=== PATIENT | female | born 1935 | race Caucasian/White ===

== ENCOUNTER 2020-08-19 09:09 | Outpatient (REF) | payer MEDICARE, OTHER, SELFPAY ==
--- NOTE | 2020-08-19 11:15 | MHC.AU.P13 ---
Adult Audiological Evaluation Date of Visit: 08/19/20 Reason for Appointment: History of hearing loss. Patient arrives to determine if there has been a change in hearing. Previous Hearing Test Results: At this clinic on 05/12/2019- Mild sloping to moderately-severe sensorineural hearing loss bilaterally. Low frequencies slightly worse in the left ear. Ear History: Recent Ear Drainage: None Reported Recent Ear Pain: None Reported Recent Ear Infections: None Reported Previous Ear Surgery: None Reported Medical History: Medical History: High Blood Pressure Hearing Instrument History- Right Ear: Corporate Wellness Coordinator: Oticon Model: Agil mini BTE Serial Number: [id number] Battery Size: 312 Repair Warranty: 08/30/2015 Loss and Damage Warranty: 08/30/2015 Dispensed By: [facility] Date of Fittin08/11/2013 Hearing Instrument History- Left Ear: Corporate Wellness Coordinator: O[employer]on Model: Agil mini BTE Serial Number: [id number] Battery Size: 312 Warranty: 08/30/2015 Loss and Damage Warranty: 08/30/2015 Dispensed By: [facility] Date of Fittin08/11/2013 Otoscopy: Right Ear: Unremarkable Left Ear: Unremarkable Hearing Evaluation: Transducer(s) Used: Insert Earphones Method: Conventional Audiometry Stimuli Used: Pure Tones Right Ear: Description of Hearing: Mild sloping to moderate sensorineural hearing loss Left Ear: Description of Hearing: Mild sloping to moderate sensorineural hearing loss Speech Recognition Threshold (SRT): Method Used: Recorded Lists Stimuli Used: Spondee Words Right Ear: 45 dBHL Left Ear: 45 dBHL Word Discrimination: Method: Recorded Lists Word Lists Used: NU-6 Right Ear: 92% at 80 dBHL Left Ear: 96% at 80 dBHL Most Comfortable Level (MCL): Right Ear: 80 dBHL Left Ear: 80 dBHL Aided Testing: Aided Testing: Aided word discrimination is 100% at 50 dBHL in soundfield Comparison: Compared to the most recent evaluation: Hearing is stable. Recommendations: Recommendations: Audiological re-evaluation in one year. Hearing aid maintenance performed today. No programming changes made today. Diagnosis: Primary Diagnosis: H90.3 Bilateral Sensorineural Hearing Loss Services Performed: Services Performed: Comprehensive Audiological Evaluation (CPT 05937) Signature: Provider: Valentine De La Rosa, LANI-A
== END 2020-08-19 09:10 | disposition home or self-care (01) ==
LOC: HO.SH 09:09
PROVIDERS: Visit Provider Nurse Practitioner Adult Health
DX: H90.3 Sensorineural hearing loss, bilateral (principal)
CPT/HCPCS: 92557

== ENCOUNTER 2020-08-19 09:58 | Outpatient (REF) | payer SELFPAY | END 2020-08-19 09:59 | disposition home or self-care (01) | LOC: HO.HAP 09:58 | PROVIDERS: Visit Provider Family Medicine | DX: Z46.1 Encounter for fitting and adjustment of hearing aid (principal) | CPT/HCPCS: V5266 ==

== ENCOUNTER 2021-01-16 | Outpatient (REF) | payer SELFPAY | END 2021-01-16 00:01 | disposition home or self-care (01) | LOC: HO.HAP | PROVIDERS: PCP Nurse Practitioner Adult Health; Visit Provider Nurse Practitioner Adult Health | DX: Z46.1 Encounter for fitting and adjustment of hearing aid (principal) | CPT/HCPCS: V5266 ==

== ENCOUNTER 2021-03-18 10:13 | Outpatient (REF) | payer MEDICARE, OTHER, SELFPAY ==
--- NOTE | ~2021-03-18 | XR_ITS ---
EXAMINATION: XR RIBS, RIGHT CLINICAL INFORMATION: Pleurodynia. COMPARISON: Chest radiographs dated 06/18/2019. TECHNIQUE: 3 views of the right ribs were obtained. A skin marker was placed over the inferior right ribs. Positioning and penetration are suboptimal. FINDINGS: Lungs are clear. No consolidation, pneumothorax, or pleural effusion. The cardiomediastinal silhouette and pulmonary vasculature are normal. Osseous structures are unremarkable. Ribs are intact. No fractures are identified. XR/XR ribs RT min 3V w CXR1V IMPRESSION: 1. Limited study without overt acute fracture in the visualized right ribs. 2. No acute cardiopulmonary process.
== END 2021-03-18 10:14 | disposition home or self-care (01) ==
LOC: HO.HMGCX 10:13
PROVIDERS: PCP Registered Nurse; Visit Provider Physician Assistant
DX: Z13.89 Encounter for screening for other disorder (principal)
CPT/HCPCS: 71101

== ENCOUNTER 2021-06-02 11:30 | Emergency (ER) | payer MEDICARE, OTHER, SELFPAY ==
[2021-06-02 11:42] VITALS: BP 164/86; PULSE 92; RESP 18; TEMP 37; O2SAT 100; BMI 35.3
[2021-06-02 12:46] VITALS: BP 194/86; PULSE 96; RESP 18; TEMP 36.7; O2SAT 96
[2021-06-02] MEDS: 0.9 % Sodium Chloride 1,000 ML 999 ML IV (13:04)
[2021-06-02 13:05] VITALS: BP 166/73
--- NOTE | 2021-06-02 13:11 | ED.GENADULT ---
HPI - General Adult General Chief complaint: GI Bleed Stated complaint: rectal bleeding Time Seen by Provider: 06/02/21 12:56 Source: patient Mode of arrival: ambulatory Limitations: no limitations History of Present Illness HPI narrative: 85-year-old female with past medical history of external hemorrhoids presents to ED for rectal bleeding. Patient states she thinks her stool might have been black. Patient states today at the clinic her primary care provider did a rectal exam/stool guaiac and the one in the office was positive. Patient states today no black stool. Patient admits to history of bleeding hemorrhoids. Related Data Home Medications Medication Instructions Recorded Confirmed albuterol sulfate 90 mcg/actuation 2 puff PO Q6H PRN 03/18/21 aerosol inhaler amlodipine 10 mg tablet 10 mg PO DAILY 03/18/21 atorvastatin 10 mg tablet 10 mg PO DAILY 03/18/21 fluticasone propionate 50 1 spray INTRANASAL DAILY 03/18/21 mcg/actuation nasal spray,suspension losartan 100 mg tablet 100 mg PO DAILY 03/18/21 pantoprazole 40 mg tablet,delayed 40 mg PO DAILY 03/18/21 release sertraline 50 mg tablet 50 mg PO DAILY 03/18/21 trazodone 100 mg tablet 100 mg PO BEDTIME 03/18/21 Previous Rx's Medication Instructions Recorded lidocaine 5 % topical patch 1 patch TOPICAL DAILY PRN #15 ea 03/18/21 (Lidoderm) docusate sodium 100 mg capsule 100 mg PO BID 9 Days #18 cap 06/02/21 (Colace) hydrocortisone acetate 25 mg 25 mg NJ BID 14 Days #12 ea 06/02/21 rectal suppository (Anusol-HC) Allergies Allergy/AdvReac Type Severity Reaction Status Date / Time No Known Allergies Allergy Verified 03/18/21 09:59 [No Known Allergies*] Review of Systems Review of Systems: Yes all other systems are reviewed and are negative Constitutional: Constitutional: Reports as per HPI and Reports no additional constitutional complaints Eyes: Eyes: Reports as per HPI and Reports no additional eye complaints ENT: Reports system reviewed and no additional complaints, except as documented and Reports as per HPI Cardiovascular: Cardiovascular: Reports as per HPI and Reports no additional cardiovascular complaints Respiratory: Respiratory: Reports as per HPI and Reports no additional respiratory complaints Gastrointestinal: Gastrointestinal: Reports as per HPI and Reports no additional gastrointestinal complaints Comments: External hemorrhoids. might have had black stool Genitourinary: Genitourinary: Reports no additional female genitourinary complaints and Reports as per HPI Musculoskeletal: Musculoskeletal: Reports no additional musculoskeletal complaints and Reports as per HPI Integumentary/Breasts: Skin/Breast: Reports system reviewed and no additional complaints, except as docu and Reports as per HPI Neurologic: Reports system reviewed and no additional complaints, except as documented and Reports as per HPI Psychiatric: Psychiatric: Reports no additional psychiatric complaints and Reports as per HPI [facility] Past Medical History Medical History (Updated 06/02/21 @ 15:14 by DEVIN Billy) Back pain with history of spinal surgery Bleeding hemorrhoid Chronic back pain HTN (hypertension) Joint pain Social History Social History Advance Directives: No Physical Exam Vital Signs: Vital Signs: Last Vital Signs Temp 98.1 F 06/02/21 12:46 Pulse 80 06/02/21 15:07 Resp 16 06/02/21 15:07 BP 168/70 H 06/02/21 15:07 Pulse Ox 97 06/02/21 15:07 Body Mass Index 35.3 Const: General: cooperative, healthy appearing, comfortable, no acute distress, well developed, alert, awake and Physically active HENMT: Head: Yes normal to inspection, Yes No palpable skull fracture present, Yes normocephalic, Yes atraumatic and No abrasion Eyes: General: appearance normal, both eyes and all related structures Neck: Neck: Yes normal visual inspection, Yes full ROM, Yes no lymphadenopathy, Yes no meningeal signs, Yes trachea midline, Yes supple and No tender Chest: Chest palpation & inspection: normal inspection of the chest and normal palpation of entire chest wall Resp: Effort & Inspection: normal respiratory effort and able to speak in complete sentences Auscultation: clear to auscultation bilaterally Cardio: Jugular venous distension: no JVD Heart sounds: S1 normal heart sound present and S2 normal heart sound present GI: Other: Rectal exam positive for external nonthrombosed hemorrhoid. Stool is brown. Negative for any melena, black stool, or bright red stool. Inspection: Yes normal to inspection and No abdominal wall ecchymosis Palpation (GI): Soft to palpation, not firm, nontender, no guarding and not rigid Rectal Exam - Female: heme negative stool and hemorrhoids (External. Non thrombosed.) : General: No CVA tenderness and Yes no CVA tenderness Back/Spine/Pelvis: Back: no CVA tenderness, No CVA tenderness and No back tenderness Skin: General skin exam: no rashes or lesions noted and elasticity normal Neuro: General: gait normal, tone normal, no meningeal signs and CN's II-XI intact bilaterally Cranial nerves: Yes CN's II-XII intact bilaterally Extrem: General: Yes normal to inspection and Yes full ROM Psych: Appearance: grossly normal, well kempt and not disheveled Course Course Course Narrative: Basic labs, stool guaiac ordered. Fluid ordered. Reevaluation(s) Reevaluation #1: Patient's hemoglobin and hematocrit are normal and better than baseline. Patient's stool guaiac is negative. Patient's vital signs stable. Patient is hemodynamically stable. Presently no indication for GI bleeding. Spoke with Dr. Santamaria of Gastroenterology on-call he was informed of patient's history, physical exam, vital signs, and lab results and he is agreement that patient could be discharged with follow-up. Patient states she has follow-up with Dr. Reeves her railroad repairer next week . Spoke with Dr. Reeves for railroad repairer and he was informed of patient's history, physical exam, labs, vital signs, and he agrees that patient could be discharged with follow-up with him next week . Patient will be discharged with Anusol for external hemorrhoid as per her request. Time: 15:07 Medical Decision Making [facility] Narrative Medical decision making narrative: External hemorrhoids resolve rectal bleeding Lab Data Result diagrams: 06/02/21 13:02 06/02/21 13:02 Labs: Lab Results 06/02/21 06/02/21 06/02/21 Range/Units 13:02 13:02 13:02 WBC 9.8 (4.8-10.8) X10*3/uL RBC 3.71 L (4.20-5.50) X10*6/uL Hgb 12.0 (12.0-16.0) g/dl Hct 36.7 L (37.0-47.0) % MCV 98.9 H (80.0-98.0) fL MCH 32.3 (27.0-33.0) pg MCHC 32.7 (31.0-35.0) g/dl RDW 13.7 (11.0-16.0) % Plt Count 332 (160-400) X10*3/uL MPV 10.1 (9.4-12.3) fL Immature Gran % (Auto) 0.6 H (0.0-0.4) % Neut % (Auto) 67.6 (45-73) % Lymph % (Auto) 19.6 L (20-40) % [place] % (Auto) 9.0 (2-11) % Eos % (Auto) 2.7 (0-4) % Baso % (Auto) 0.5 (0-2) % Lymph # (Auto) 1.9 (1.2-4.9) X10*3/uL [place] # (Auto) 0.9 (0.1-1.2) X10*3/uL Eos # (Auto) 0.3 (0.0-0.4) X10*3/uL Baso # (Auto) 0.1 (0.0-0.2) X10*3/uL Abs Immat Gran (auto) 0.06 H (0.00-0.03) X10*3/uL Absolute Neuts (auto) 6.6 (2.0-8.3) x10*3/uL Absolute Nucleated RBC 0.000 (0.0-0.012) X10*3/uL Nucleated RBC % (auto) 0.0 (0.0-0.2) /100WBC PT 10.9 (9.9-13.0) SEC INR 1.0 (0.9-1.1) APTT 30.8 (24.1-38.0) SEC Sodium 143 (135-145) mmol/L Potassium 4.8 (3.3-5.1) mmol/L Chloride 112 H (96-108) mmol/L Carbon Dioxide 19 L (22-29) mmol/L Anion Gap 17 (12-20) BUN 23 H (9-16) mg/dL Creatinine 0.81 (0.5-1.4) mg/dL Estim Creat Clear Calc 47.0 Estimated GFR > 60 Random Glucose 98 (60-115) mg/dL Calcium 9.1 (8.4-10.2) mg/dL Total Bilirubin 0.6 (0.0-1.0) mg/dL AST 33 H (5-31) U/L ALT 23 (0-31) U/L Alkaline Phosphatase 100 (39-117) U/L Total Protein 7.3 (6.5-8.0) g/dL Albumin 4.1 (3.5-5.0) g/dL Stool Occult Blood (NEGATIVE) 06/02/21 Range/Units 13:03 WBC (4.8-10.8) X10*3/uL RBC (4.20-5.50) X10*6/uL Hgb (12.0-16.0) g/dl Hct (37.0-47.0) % MCV (80.0-98.0) fL MCH (27.0-33.0) pg MCHC (31.0-35.0) g/dl RDW (11.0-16.0) % Plt Count (160-400) X10*3/uL MPV (9.4-12.3) fL Immature Gran % (Auto) (0.0-0.4) % Neut % (Auto) (45-73) % Lymph % (Auto) (20-40) % [place] % (Auto) (2-11) % Eos % (Auto) (0-4) % Baso % (Auto) (0-2) % Lymph # (Auto) (1.2-4.9) X10*3/uL [place] # (Auto) (0.1-1.2) X10*3/uL Eos # (Auto) (0.0-0.4) X10*3/uL Baso # (Auto) (0.0-0.2) X10*3/uL Abs Immat Gran (auto) (0.00-0.03) X10*3/uL Absolute Neuts (auto) (2.0-8.3) x10*3/uL Absolute Nucleated RBC (0.0-0.012) X10*3/uL Nucleated RBC % (auto) (0.0-0.2) /100WBC PT (9.9-13.0) SEC INR (0.9-1.1) APTT (24.1-38.0) SEC Sodium (135-145) mmol/L Potassium (3.3-5.1) mmol/L Chloride (96-108) mmol/L Carbon Dioxide (22-29) mmol/L Anion Gap (12-20) BUN (9-16) mg/dL Creatinine (0.5-1.4) mg/dL Estim Creat Clear Calc Estimated GFR Random Glucose (60-115) mg/dL Calcium (8.4-10.2) mg/dL Total Bilirubin (0.0-1.0) mg/dL AST (5-31) U/L ALT (0-31) U/L Alkaline Phosphatase (39-117) U/L Total Protein (6.5-8.0) g/dL Albumin (3.5-5.0) g/dL Stool Occult Blood NEGATIVE (NEGATIVE) Discharge Plan Discharge Clinical Impression: External hemorrhoid, Rectal bleed Patient Disposition: Home, Self-Care Instructions: Hemorrhoids (ED), Rectal Bleeding (ED) Additional Instructions: Presently we are not suspecting GI bleed. Case was discussed with Dr. Reeves who agrees you can be discharged home. Recommends for keeping up with the appointment next week . Return to the ED immediately for any abdominal pain, black stool, bright red blood, profuse rectal bleeding, fever, chills, weakness, dizziness, or any other concerning symptoms. Prescriptions: New hydrocortisone acetate [Anusol-HC] 25 mg suppository 25 mg NJ BID 14 Days Qty: 12 RF: 0 docusate sodium [Colace] 100 mg capsule 100 mg PO BID 9 Days Qty: 18 RF: 0 No Action sertraline 50 mg tablet 50 mg PO DAILY RF: 0 losartan 100 mg tablet 100 mg PO DAILY RF: 0 pantoprazole 40 mg tablet,delayed release (DR/EC) 40 mg PO DAILY RF: 0 amlodipine 10 mg tablet 10 mg PO DAILY RF: 0 trazodone 100 mg tablet 100 mg PO BEDTIME RF: 0 atorvastatin 10 mg tablet 10 mg PO DAILY RF: 0 fluticasone propionate 50 mcg/actuation spray,suspension 1 spray intranasal DAILY RF: 0 albuterol sulfate 90 mcg/actuation HFA aerosol inhaler 2 puff PO Q6H PRN (Reason: wheezing) RF: 0 lidocaine [Lidoderm] 5 % adhesive patch,medicated 1 patch topical DAILY PRN (Reason: rib pain) Qty: 15 RF: 0 Referrals: Elbert Reeves [Physician] - 2 days (External hemorrhoids. Resolved rectal bleeding.) Discharge Date/Time: 06/02/21 15:24 Print Language: Citizen [place]
[2021-06-02 13:14] LABS: OBS Int Ctl Valid YES; OBS1 NEGATIVE (NEGATIVE)
[2021-06-02 13:14] LABS: MANUAL DIFF FLAG NO
[2021-06-02 13:15] LABS: Basophils Absolute Auto 0.1 X10*3/uL (0.0-0.2); Basophils Percent Auto 0.5 % (0-2); Eosinophils Absolute Auto 0.3 X10*3/uL (0.0-0.4); Eosinophils Percent Auto 2.7 % (0-4); Hematocrit 36.7 % (37.0-47.0); Imm Gran Abs Auto 0.06 X10*3/uL (0.00-0.03); Imm Gran Pct Auto 0.6 % (0.0-0.4); Lymphocytes Absolute Auto 1.9 X10*3/uL (1.2-4.9); Lymphocytes Percent Auto 19.6 % (20-40); Mean Corpuscular HGB Conc 32.7 g/dl (31.0-35.0); Mean Corpuscular Hemoglobin 32.3 pg (27.0-33.0); Mean Corpuscular Volume 98.9 fL (80.0-98.0); Mean Platelet Volume 10.1 fL (9.4-12.3); Monocytes Absolute Auto 0.9 X10*3/uL (0.1-1.2); Neutrophils Absolute Auto 6.6 x10*3/uL (2.0-8.3); Neutrophils Percent Auto 67.6 % (45-73); Platelet Count 332 X10*3/uL (160-400); Red Blood Count 3.71 X10*6/uL (4.20-5.50); Red Cell Distribution Width 13.7 % (11.0-16.0); White Blood Count 9.8 X10*3/uL (4.8-10.8)
[2021-06-02 13:21] LABS: Prothrombin Time 10.9 SEC (9.9-13.0)
[2021-06-02 13:24] LABS: Partial Thromboplastin Time 30.8 SEC (24.1-38.0)
[2021-06-02 13:47] LABS: Alanine Aminotransferase 23 U/L (0-31); Albumin Level 4.1 g/dL (3.5-5.0); Alkaline Phosphatase 100 U/L (39-117); Anion Gap 17 (12-20); Aspartate Amino Transferase 33 U/L (5-31); Bilirubin Total 0.6 mg/dL (0.0-1.0); Blood Urea Nitrogen 23 mg/dL (9-16); Calcium 9.1 mg/dL (8.4-10.2); Carbon Dioxide 19 mmol/L (22-29); Chloride 112 mmol/L (96-108); Estimated Glomerular Filt Rate > 60; Glucose Random 98 mg/dL (60-115); Potassium 4.8 mmol/L (3.3-5.1); Sodium 143 mmol/L (135-145); Total Protein 7.3 g/dL (6.5-8.0)
[2021-06-02 15:07] VITALS: BP 168/70; PULSE 80; RESP 16; O2SAT 97
== END 2021-06-02 15:24 | disposition home or self-care (01) ==
PROVIDERS: Physician Assistant; Emergency Provider Emergency Medicine; PCP Registered Nurse
DX: K64.4 Residual hemorrhoidal skin tags (principal); K62.5 Hemorrhage of anus and rectum; I10 Essential (primary) hypertension
CPT/HCPCS: 36415; 80053; 82272; 85025; 85610; 85730; 96360; 99284

== ENCOUNTER 2022-02-16 13:38 | Outpatient (REF) | payer SELFPAY | END 2022-02-16 13:39 | disposition home or self-care (01) | LOC: HO.HAP 13:38 | PROVIDERS: Visit Provider Registered Nurse | DX: Z46.1 Encounter for fitting and adjustment of hearing aid (principal); H90.3 Sensorineural hearing loss, bilateral | CPT/HCPCS: 99499; V5266 ==

== ENCOUNTER 2022-08-06 11:09 | Outpatient (REF) | payer SELFPAY | END 2022-08-06 11:10 | disposition home or self-care (01) | LOC: HO.HAP 11:09 | PROVIDERS: PCP Registered Nurse; Visit Provider Registered Nurse | DX: Z46.1 Encounter for fitting and adjustment of hearing aid (principal); H90.3 Sensorineural hearing loss, bilateral | CPT/HCPCS: V5266 ==

== ENCOUNTER 2023-01-10 13:30 | Emergency (ER) | payer MEDICARE, OTHER, SELFPAY ==
--- NOTE | ~2023-01-10 | XR_ITS ---
EXAMINATION: XR WRIST, RIGHT CLINICAL INFORMATION: Right wrist pain for 3 days the radial styloid COMPARISON: None available. TECHNIQUE: Four views of the right wrist. FINDINGS: Calcifications in the soft tissues adjacent to the radial styloid and radial aspect of the wrist, likely degenerative. Chondrocalcinosis at the TFCC. No acute fractures are seen. Mild degenerative change of the triscaphe joint and first carpometacarpal joint. Soft tissue swelling at the radial aspect of the wrist. XR/XR wrist RT 2V IMPRESSION: Soft tissue swelling at the radial aspect of the wrist. No acute fractures are seen. Degenerative changes.
[2023-01-10 13:33] VITALS: BP 137/61; PULSE 98; RESP 18; TEMP 36; O2SAT 96; BMI 35.3
--- NOTE | 2023-01-10 13:34 | ED.UPPEXIN ---
HPI - Extremity Injury (Upper) General Chief Complaint: Extremity Injury, Upper Stated Complaint: r wrist pain Time Seen by Provider: 01/10/23 14:51 History of Present Illness HPI narrative: Patient complains of right wrist pain, she said she has been using her wrist a lot but does not recall any acute injury, there is no fever she denies any numbness or tingling o weakness, no other joints are painful now, no other complete Related Data Home Medications Medication Instructions Recorded Confirmed albuterol sulfate 90 mcg/actuation 2 puff PO Q6H PRN wheezing 03/18/21 aerosol inhaler amlodipine 10 mg tablet 10 mg PO DAILY 03/18/21 atorvastatin 10 mg tablet 10 mg PO DAILY 03/18/21 fluticasone propionate 50 1 spray intranasal DAILY 03/18/21 mcg/actuation nasal spray,suspension losartan 100 mg tablet 100 mg PO DAILY 03/18/21 pantoprazole 40 mg tablet,delayed 40 mg PO DAILY 03/18/21 release sertraline 50 mg tablet 50 mg PO DAILY 03/18/21 trazodone 100 mg tablet 100 mg PO BEDTIME 03/18/21 Previous Rx's Medication Instructions Recorded lidocaine 5 % topical patch 1 patch topical DAILY PRN rib pain 03/18/21 (Lidoderm) #15 ea docusate sodium 100 mg capsule 100 mg PO BID 9 days #18 caps 06/02/21 (Colace) hydrocortisone acetate 25 mg 25 mg [place] BID 2 weeks #12 ea 06/02/21 rectal suppository (Anusol-HC) Allergies Allergy/AdvReac Type Severity Reaction Status Date / Time No Known Allergies Allergy Verified 05/07/22 11:56 [No Known Allergies*] [facility] Past Medical History Source: nursing notes reviewed Medical History Back pain with history of spinal surgery Bleeding hemorrhoid Chronic back pain HTN (hypertension) Joint pain Social History Social History Advance Directives: No Advance Directives Information Provided: Yes Physical Exam Vital Signs: Vital Signs: Last Vital Signs Temp 96.8 F 01/10/23 13:33 Pulse 98 01/10/23 13:33 Resp 18 01/10/23 13:33 BP 137/61 01/10/23 13:33 Pulse Ox 96 01/10/23 13:33 BMI result Body Mass Index 35.3 General appearance is no acute distress Head is normocephalic atraumatic Neck is supple Respiratory no distress Extremities full range of motion x4 including right wrist Right wrist exam there is some tenderness in the dorsal radial aspect of the wrist, there is mild swelling no redness no warmth, all tendon function distal is intact, neurovascular intact with good sensation and motor function, but there is pain when the wrist is ranged Skin no rashes Course Course Course Narrative: This is a rapid medical exam. Deferred additional HPI, ROS, PE to primary provider. 87 yo female right hand dominant with history of COPD, HTN, HLD, GERD, anxiety, insomnia here with right wrist pain x 3 days with no known injury or trauma ?dequervain Will check x-ray VSS X-ray showed some mild degenerative changes as well as some mild swelling at the radial aspect of the wrist On exam the patient had good range of motion no evidence of septic joint or cellulitis and is discharged with a splint for comfort and will follow with hand doctor as needed Discharge Plan Discharge Clinical Impression: Right wrist tendinitis Patient Disposition: Home, Self-Care Additional Instructions: X-ray did not show any broken bones, exam did not show any sign of infection We gave you a velcro splint for comfort but do not wear all the time as it will stiffen up the joint so take it off for several hours a day so he can move the wrist around You can use Tylenol for aches and pains Follow with hand doctor Return any worse condition or any concerns Prescriptions: No Action hydrocortisone acetate [Anusol-HC] 25 mg suppository 25 mg VA BID 14 Days Qty: 12 0RF docusate sodium [Colace] 100 mg capsule 100 mg PO BID 9 Days Qty: 18 0RF sertraline 50 mg tablet 50 mg PO DAILY losartan 100 mg tablet 100 mg PO DAILY pantoprazole 40 mg tablet,delayed release (DR/EC) 40 mg PO DAILY amlodipine 10 mg tablet 10 mg PO DAILY trazodone 100 mg tablet 100 mg PO BEDTIME atorvastatin 10 mg tablet 10 mg PO DAILY fluticasone propionate 50 mcg/actuation spray,suspension 1 spray intranasal DAILY albuterol sulfate 90 mcg/actuation HFA aerosol inhaler 2 puff PO Q6H PRN (Reason: wheezing) lidocaine [Lidoderm] 5 % adhesive patch,medicated 1 patch topical DAILY PRN (Reason: rib pain) Qty: 15 0RF Rx Instructions: leave on most painful area for up to 12 hrs Boostrix Tdap 2.5-8-5 Lf-mcg-Lf/0.5mL syringe 0.5 ml IM ONCE Qty: 0.5 0RF Referrals: Tiera Francis MD [Physician] - (Right wrist tendinitis)
== END 2023-01-10 15:18 | disposition home or self-care (01) ==
PROVIDERS: Emergency Provider Emergency Medicine; PCP Registered Nurse
DX: M25.431 Effusion, right wrist (principal); M65.29 Calcific tendinitis, multiple sites; Z79.899 Other long term (current) drug therapy
CPT/HCPCS: 73100; 99282; 99283

== ENCOUNTER 2023-02-12 10:35 | Outpatient (AMB) | payer MEDICARE, OTHER, SELFPAY ==
--- NOTE | 2023-02-12 10:40 | MHC.OFFVIS ---
Intake Vital Signs 02/12/23 10:48 Height 4 ft 11 in Weight 175 lb BMI 35.3 Intake Visit Reasons: NPatient RT wrist, ED visit 01/10/23 Intake Note: Kellen 87 yr old right hand dominant female presents today as a new patient for her right wrist pain . Patient was seen in ED on 01/10/23 for increase wrist pain near her CMC joint. States she had no injury but could have been to over use. Xrays were taken, where no fractures were found. Patient was given a wrist brace and was advise to work on ROM. Patient would like to discuss injection today. numbness or tingling. Hx of right hand CTR 6 years ago. Allergies No Known Allergies [No Known Allergies*] Allergy (Verified 02/12/23 10:48) HPI NPatient RT wrist, ED visit 01/10/23 HPI Details Brenda is an 87 year old right hand dominant woman who presents with complaints of right wrist pain. She presented to the ED on 01/10/23 with several days of right radial wrist pain. No fractures or dislocations seen on radiographs at the time. She was given a velcro wrist splint and instructed to work on ROM She presents today with complaints of right radial wrist pain, which has improved since she was seen in the ED. She says wearing the wrist brace takes alot of the pressure off when she is performing pinching, gripping, and twisting activities, such as turning doorknobs or opening jars. She denies any falls or known injury. She denies any numbness or tingling. She reports a history of a carpal tunnel release in the past, with good relief. She has a Hx of a left TKA, and complains of pain in her right knee. [facility] Medical History Back pain with history of spinal surgery Bleeding hemorrhoid Chronic back pain HTN (hypertension) Joint pain Review of Systems Const All systems reviewed & are unremarkable except as noted in HPI and below Physical Exam Vital Signs: BMI result Body Mass Index 35.3 Const General: cooperative, healthy appearing and no acute distress Orientation/consciousness: patient oriented x3 HEENT Head: Yes normocephalic and Yes atraumatic Eyes EOM: EOMs intact bilaterally Resp Effort & Inspection: normal respiratory effort and able to speak in complete sentences Cardio Jugular venous distension: no JVD Skin General skin exam: turgor normal Rashes: no rashes Neuro General: patient oriented x3 Extrem Other: Evaluation of Right Upper Extremity: The patient is alert, oriented, and in no acute distress Neuro: Median, Ulnar, Radial nerves motor and sensory intact and sensation is normal to the tips of all digits No thenar or intrinsic wasting Good APB muscle belly firing and good finger cross Vascular: Cap refill brisk ROM: She can make a fist and extend all her digits Skin: No lacerations or abrasions. General: No Ecchymosis. No Erythema or evidence of infection. Very mildly positive Ralf test on the right Mild tenderness over the 1st dorsal compartment No tenderness over the a1 pulleys No locking or catching No tenderness over the basal joint Radiographs: 3 views of the right wrist from 01/10/23 were reviewed by me today in clinic. They show no fractures or dislocations. There is some chondrocalcinosis seen in the ulnocarpal joint of the TFCC. Also visible in the radial aspect of the radiocarpal joint. Psych Appearance: grossly normal Affect: normal affect Attitude: cooperative Assessment & Plan Assessment & Plan (1) De Quervain's tenosynovitis, right: Code(s): M65.4 - Radial styloid tenosynovitis [de Quervain] (2) Right knee pain: Code(s): M25.561 - Pain in right knee Plan Assessment & Plan: 1. Right De Quervains tenosynovitis, resolving Very mildly positive Ralf test Her symptoms appear to be improving significantly with conservative management. I educated her about this condition I discussed treatment options I recommend activity modification and bracing She was fitted for a comfort cool brace to wear with daily activity, when symptomatic She should limit or avoid any heavy or repetitive pinching, gripping, or scissoring activities She can follow up prn She is happy with the current plan. 2. Right knee pain I provided her with Dr. Gaitan and Dr Felzi s information and recommend she call to make an appointment with either them or a PA to discuss her knee pain Scribed for Tiera Francis MD by Dimas Paige medical practice administrator, on 02/12/23 at 10:55 AM, EST. Coding Level of Care Code New Pt Level 3 (88988) Diagnoses De Quervain's tenosynovitis, right M65.4 Right knee pain M25.561
[2023-02-12 10:48] VITALS: BMI 35.3
== END 2023-02-12 11:07 | disposition home or self-care (01) ==
PROVIDERS: PCP Registered Nurse; Visit Provider Orthopaedic Surgery
DX: M65.4 Radial styloid tenosynovitis [de Quervain] (principal); M25.561 Pain in right knee
CPT/HCPCS: 99203

== ENCOUNTER → 2023-02-12 10:35 | Outpatient (BNVA) | payer OTHER, MEDICARE, SELFPAY | PROVIDERS: PCP Registered Nurse; Visit Provider Orthopaedic Surgery ==

== ENCOUNTER 2023-02-28 07:47 | Outpatient (REF) | payer MEDICARE, OTHER, SELFPAY ==
--- NOTE | ~2023-02-28 | XR_ITS ---
X-RAY RIGHT KNEE X-RAY BILATERAL STANDING KNEES CLINICAL HISTORY: Pain. COMPARISON: Radiograph right knee 11/12/2022. TECHNIQUE: 2 views of the right knee. 1 standing view of both knees. FINDINGS: No acute fractures or subluxation. Redemonstration of moderate to severe tricompartmental joint space narrowing with subcortical sclerosis in the right knee. Redemonstration of exuberant chondrocalcinosis in the right knee with additional amorphous calcifications in the posterior compartment of the right knee. Total left-sided knee arthroplasty without discrete fracture or failure on this limited standing single view of the left knee. Trace joint effusion in the right knee. XR/XR knee RT 2V IMPRESSION: 1. No acute fractures or subluxation. 2. Moderate to severe tricompartmental osteoarthritis of the right knee. 3. Redemonstration of exuberant chondrocalcinosis in the right knee. 4. Trace joint effusion in the right knee.
--- NOTE | ~2023-02-28 | XR_ITS ---
X-RAY RIGHT KNEE X-RAY BILATERAL STANDING KNEES CLINICAL HISTORY: Pain. COMPARISON: Radiograph right knee 11/12/2022. TECHNIQUE: 2 views of the right knee. 1 standing view of both knees. FINDINGS: No acute fractures or subluxation. Redemonstration of moderate to severe tricompartmental joint space narrowing with subcortical sclerosis in the right knee. Redemonstration of exuberant chondrocalcinosis in the right knee with additional amorphous calcifications in the posterior compartment of the right knee. Total left-sided knee arthroplasty without discrete fracture or failure on this limited standing single view of the left knee. Trace joint effusion in the right knee. XR/XR knee standing BI IMPRESSION: 1. No acute fractures or subluxation. 2. Moderate to severe tricompartmental osteoarthritis of the right knee. 3. Redemonstration of exuberant chondrocalcinosis in the right knee. 4. Trace joint effusion in the right knee.
== END 2023-02-28 07:48 | disposition home or self-care (01) ==
LOC: HO.HOSX 07:47
PROVIDERS: Visit Provider Orthopaedic Surgery
DX: M17.11 Unilateral primary osteoarthritis, right knee (principal); M54.9 Dorsalgia, unspecified; Z96.652 Presence of left artificial knee joint
CPT/HCPCS: 20610; 73560; 73565; J1100

== ENCOUNTER 2023-02-28 14:27 | Outpatient (AMB) | payer OTHER, MEDICARE, SELFPAY ==
--- NOTE | 2023-02-28 14:28 | MHC.OFFVIS ---
Intake Vital Signs 02/28/23 14:48 Height 4 ft 11 in Weight 175 lb BMI 35.3 Intake Visit Reasons: Newprob-right knee pain Intake Note: brenda is an 87 year old female who presents today for a new problem visit with complaints of right knee pain. States pain shas been presents for the last year. No injury she can recall, possible due to over use. Currently she is having pain when walking. States she has radiating sharp pain down her leg. She doesn't recall if she had injections, brace or completed P.T sessions. Denies numbness and tingling in toes. Allergies No Known Allergies [No Known Allergies*] Allergy (Verified 02/28/23 14:49) HPI Newprob-right knee pain HPI Details Brenda is an 87 year old woman who presents with complaints of right knee pain. She has pain with daily activity, worse with walking. She describes the pain as sharp and radiating down her leg. She would like to walk more but finds it difficult due to her leg & back pain. She tries to stay active performing water exercises in a pool She is unsure if she had any prior treatment. She denies any numbness or tingling. She has a hx of left TKA in ~[id number]. She says her knee may occasionally buckle on her when standing ON LICENSE OF [facility] Medical History Back pain with history of spinal surgery Bleeding hemorrhoid Chronic back pain HTN (hypertension) Joint pain Review of Systems Const All systems reviewed & are unremarkable except as noted in HPI and below Physical Exam Vital Signs: BMI result Body Mass Index 35.3 Const General: no acute distress, alert and awake Orientation/consciousness: patient oriented x3 HEENT Head: Yes normocephalic and Yes atraumatic Eyes EOM: EOMs intact bilaterally Resp Effort & Inspection: normal respiratory effort and able to speak in complete sentences Cardio Jugular venous distension: no JVD Skin General skin exam: turgor normal Rashes: no rashes Neuro General: patient oriented x3 Extrem Other: Right Knee: TTP medial compartment Trace effusion Full ROM Psych Appearance: grossly normal Affect: normal affect Attitude: cooperative Office Procedures Joint Injection/Drain Joint Injection/Drain Details: Injected 1 mL of Decadron and 3 mL 1% lidocaine and 3 mL of 0.25% Marcaine. Site was prepped using aseptic technique. Patient tolerated the procedure well. Primary Site: right knee Approach Used: anterolateral Coding - Large joint Procedure code (CPT) selection complete Results Reviewed Results Reviewed: 02/28/23 14:54 Lidocaine HCl 2 % MPF [Xylocaine 2 % MPF] 5 ml .ROUTE .STK-MED ONE 02/28/23 14:55 BUPivacaine MPF 0.25 % [Sensorcaine-MPF 0.25% 10 ML] 10 ml .ROUTE .STK-MED ONE dexAMETHasone sod phosphate [Decadron] 4 mg .ROUTE .STK-MED ONE I personally reviewed relevant radiographs. Left total knee arthroplasty in expected post operative position with no hardware complications or evidence of loosening RIght chondrocalcinosis and moderate to severe OA Assessment & Plan Assessment & Plan (1) Osteoarthritis of right knee: Code(s): M17.11 - Unilateral primary osteoarthritis, right knee Plan: This is an 87 year old woman with right knee OA. She has pain with daily activity, worse with ambulation. She denies any prior treatment. i discussed her diagnosis and treatment options. I injected her right knee today, which she tolerated well. She can follow up prn. Plan Scribed for Humberto Gaitan MD by Dimas Paige, medical billing instructor, on 02/28/23 at 2:55 PM, EST. Orders: Orders XR knee RT 2V 02/28/23 M25.569 - Pain in unspecified knee XR knee standing BI 02/28/23 M25.569 - Pain in unspecified knee Coding Level of Care Code Est Pt Level 4 (50860) Diagnoses Osteoarthritis of right knee M17.11 CPT Codes Coding - Large joint: 96782 - Large joint ([id number])
[2023-02-28 14:48] VITALS: BMI 35.3
== END 2023-02-28 15:23 | disposition home or self-care (01) ==
PROVIDERS: PCP Registered Nurse; Visit Provider Orthopaedic Surgery
DX: M17.11 Unilateral primary osteoarthritis, right knee (principal)
CPT/HCPCS: 20610; 99214

== ENCOUNTER 2023-03-29 09:55 | Outpatient (REF) | payer MEDICARE, OTHER, SELFPAY ==
--- NOTE | ~2023-03-29 | XR_ITS ---
EXAMINATION: XR LUMBOSACRAL SPINE WITH OBLIQUES CLINICAL INFORMATION: Radiculopathy. COMPARISON: Previous x-ray August 2013. TECHNIQUE: 4 views of the lumbar spine. FINDINGS: There is new surgical hardware with posterior rods and transpedicular screws on the right at L3, L4 and S1 and on the left at L2, L4, L5 and S1. There is a screw across the right sacroiliac joint. Orthopedic hardware appears intact. Curvature of the lower lumbar spine to the right. No instability on flexion-extension views is seen. No fracture or dislocation. Multilevel degenerative changes. Atherosclerotic disease. XR/XR lumbar spine 4V min IMPRESSION: Postsurgical changes. No instability on flexion-extension views.
== END 2023-03-29 09:56 | disposition home or self-care (01) ==
LOC: HO.HOSX 09:55
PROVIDERS: PCP Registered Nurse; Visit Provider Physician Assistant
DX: M54.16 Radiculopathy, lumbar region (principal); M41.20 Other idiopathic scoliosis, site unspecified
CPT/HCPCS: 72110

== ENCOUNTER 2023-03-29 09:55 | Outpatient (AMB) | payer MEDICARE, OTHER, SELFPAY ==
--- NOTE | 2023-03-29 10:18 | HO.SPINEOV ---
Intake Intake Visit Reasons: Bulging disc Intake Note: Ms. Wolf is here today c/o low back pain. MRI done @ [facility]/brought disc. Retail Salesperson Required: No Allergies No Known Allergies [No Known Allergies*] Allergy (Verified 02/28/23 14:49) Assessment & Plan Assessment & Plan (1) Scoliosis (and kyphoscoliosis), idiopathic: Code(s): M41.20 - Other idiopathic scoliosis, site unspecified Plan This is a very nice 87-year-old female with a complicated spinal history including previous cervical spine decompression, multiple lumbar procedures, who ultimately underwent an attempted scoliosis correction by Dr. Kc in 2017 for back pain. She underwent an L2-S1 pedicle screw fixation and what I suspect is a posterior lateral fusion. She was in a brace for many months and it took her about a year to recover but it did help her back pain that she was having before surgery. About a year ago, she started to notice that she was having an increasing mount of pain with standing and walking. Specifically she has pain in the upper lumbar region and bilaterally low across her lower lumbar sacral area. She does not have any real radicular symptoms to complain about, but is occasionally getting some calf discomfort. She saw an advertisement about Dr. Gar [facility] and came for evaluation. She does have an upcoming visit with Dr. Kc but the earlier she can get in with him was 6 months from now. At this point, her quality of life is suffering significantly. Even doing something as simple as dishes or making dinner is difficult. Going to the grocery store is absolutely intolerable. She does go to the [facility] and do swimming but that will seem to aggravate things as well. She was seen at [facility] went through rigorous number of injections etc. and they have told her there is nothing more they can do for her. PMH: COPD, plantar fasciitis, depression, hypertension, hyperlipidemia, GERD, osteoarthritis, chronic low back pain, 2 unspecified cervical spinal surgeries in the late , L3-S1 fusion, L5-S1 diskectomy right-sided, left knee replacement. Social hx: She does not smoke Medications: Albuterol, amlodipine, atorvastatin, Colace, fluticasone, hydrocortisone, lidocaine patches, losartan, pantoprazole, sertraline, trazodone. Allergies: No drug allergy Physical exam: Very pleasant, here with her daughter today no acute distress, motor examination limited by pain but does not appear to have any focal deficits. Imaging review: She has an MRI done at [facility] showing significant metal artifact, very difficult to have any kind of diagnostic interpretation with this study. There is what looks like advanced degeneration above the level of the fusion at L1-2 and T12-L1. I did a set of standing x-rays here in the office to get a better look at her hardware, in this shows evidence of pedicle screws on the right at L3, L4, S1 as well as a deep sacroiliac screw projecting into the pelvis. On the left side there is a screw at L2, L4 I believe but possibly in the disc space, L5 and S1. I do not see any evidence of interbody cages. She still has a significant scoliotic deformity as well as adjacent scoliotic angulation above her fusion. Her bone quality looks as though she has osteoporosis. Impression: This is a very complicated 87-year-old female with history of scoliosis with what looks like pedicle screw fixation extending from L2 on the left down through the sacroiliac into the pelvis on the right. I do not have any preoperative x-rays to compare to but she still has a significant scoliotic curvature and appears to have advanced degeneration above the scoliosis/fusion construct. I think her pain could be a combination of upper lumbar lower thoracic spine adjacent segment disease, with combination of sacroiliac joint dysfunction lower down. She went through [facility] for a number of different injections and radiofrequency ablation site and they have told her there is nothing more they can do for her there. She is here to see us for an opinion on her surgery and whether not there is anything we can do to help her back discomfort as her quality of life is suffering significantly. She does have an upcoming appointment with her surgeon Dr. Kc but it is not until August 2023. I would like to get a noncontrast CT of the lumbar spine to better understand the anatomy as well as where the screws were placed and if check for pseudoarthrosis. I will have her come back on a day Dr. Gar is here. I have asked her daughter and the patient to get us an operative note as well as any preoperative x-rays before her fusion so we can better evaluate things. Thank you for allowing us to care for your patient. The total time spent with this visit with this patient was 60 minutes reviewing history, physical exam, lumbar imaging review, and implementation of treatment plan or further diagnostic testing Rodolfo Gar MD,PhD [facility] Orders: Orders XR lumbar spine 4V min Today M54.16 - Radiculopathy, lumbar region Coding Level of Care Code New Pt Level 5 (68938) Diagnoses Scoliosis (and kyphoscoliosis), idiopathic M41.20
== END 2023-03-29 11:16 | disposition home or self-care (01) ==
PROVIDERS: PCP Registered Nurse; Visit Provider Physician Assistant
DX: M41.20 Other idiopathic scoliosis, site unspecified (principal)
CPT/HCPCS: 99205

== ENCOUNTER 2023-04-03 13:07 | Outpatient (REF) | payer MEDICARE, OTHER, SELFPAY ==
--- NOTE | ~2023-04-03 | CT_ITS ---
EXAMINATION: CT LUMBAR SPINE WITHOUT CONTRAST CLINICAL INFORMATION: Idiopathic scoliosis. COMPARISON: Lumbar spine radiographs 03/29/2023. TECHNIQUE: A multidetector CT acquisition of the lumbar spine is obtained without contrast. This CT examination was performed using dose optimization techniques as appropriate, variously including the following: *Automated exposure control *Adjustment of mA and/or kV according to patient size (this includes techniques or standardized protocols for targeted exams where dose is matched to indication/reason for exam; i.e. extremities or head) *Use of iterative reconstruction technique FINDINGS: There are postoperative changes following posterior instrumented fusion spanning the L2-S1 levels as well as a right bony pelvic screw extending beyond the limits of this study. Left-sided transpedicular screws with vertical connecting lexie at L2, L4, L5, and S1 and right-sided transpedicular screws with a vertical connecting lexie at L3, L4, and S1. The surgical hardware appears intact and there is no evidence of hardware loosening. Solid bridging posterolateral bone fusion mass at the postoperative levels. There is diffuse osteopenia. Severe rightward convex scoliotic curvature of the lumbar spine with the apex at L3-L4. There is grade 1 right lateral listhesis of L4 on L5 and there is grade 1 left lateral listhesis of L2 on L3. There is degenerative endplate sclerosis at T12-L1. There is degenerative disc disease at all lumbar levels and there is vacuum phenomenon at L1-L2. No acute fractures no acute subluxations. Aortoiliac atherosclerotic calcification. There are no significant extraspinal soft tissue findings. Right iliac bone graft donor site. At L1-L2, there is a diffuse annular disc bulge and there is bilateral hypertrophic facet arthropathy. Findings in concert result in asymmetric right subarticular zone stenosis and mild to moderate bilateral foraminal stenosis. There is vacuum phenomenon within the right neural foramen. At L2-L3, there is a diffuse annular disc bulge and there are postoperative changes as discussed above. Central canal is not well assessed due to artifact from the surgical hardware. There is mild bony foraminal encroachment bilaterally. At L3-L4, there is a diffuse annular disc bulge and there is bilateral hypertrophic facet arthropathy. Far left lateral bridging disc osteophyte protrusion. Central canal not well assessed due to artifact from the surgical hardware. Osteophytic ridging and facet arthropathy result in moderate left-sided bony foraminal encroachment. At L4-L5, there is a diffuse disc osteophyte complex with a superimposed far right lateral disc osteophyte protrusion. Bilateral hypertrophic facet arthropathy. The central canal is not well assessed due to artifact from the surgical hardware. Osteophytic ridging and facet arthropathy result in asymmetric right subarticular zone stenosis. Mild foraminal encroachment bilaterally. At L5-S1, there is a diffuse disc osteophyte complex and there is advanced bilateral facet arthropathy. Findings in concert result in mild central canal stenosis, bilateral subarticular zone stenosis, and mild to moderate right-sided foraminal stenosis. CT/CT lumbar spine wo IV con IMPRESSION: Severe rightward convex scoliotic curvature of the lumbar spine superimposed on advanced multilevel degenerative disc disease and hypertrophic facet arthropathy resulting in multilevel subarticular zone stenosis and multilevel foraminal stenosis as discussed in detail above. The central canal is not well assessed on CT. Postoperative changes following posterior instrumented fusion spanning the L2-S1 levels as well as a right bony pelvic screw extending beyond the limits of this study. Solid bridging posterolateral bone fusion mass at the postoperative levels.
== END 2023-04-03 13:08 | disposition home or self-care (01) ==
LOC: HO.CT 13:07
PROVIDERS: PCP Registered Nurse; Visit Provider Physician Assistant
DX: M41.20 Other idiopathic scoliosis, site unspecified (principal)
CPT/HCPCS: 72131

== ENCOUNTER 2023-04-16 15:11 | Outpatient (AMB) | payer MEDICARE, OTHER, SELFPAY ==
--- NOTE | 2023-04-16 15:27 | A.SPINEOV_ITS ---
Intake Intake Visit Reasons: Follow up CT Scan Intake Note: Ms. Wolf is here today to f/u and discuss CT Scan results. Direct Sales Professional Required: No Allergies No Known Allergies [No Known Allergies*] Allergy (Verified 02/28/23 14:49) Assessment & Plan Assessment & Plan (1) Scoliosis (and kyphoscoliosis), idiopathic: Code(s): M41.20 - Other idiopathic scoliosis, site unspecified Plan: Dear colleague, On 04/16/2023, I saw for follow-up Brenda Wolf to review an MRI of the lumbar spine. She suffering from intractable low back pain. The pain is located in the thoracolumbar area after long-standing and in the SI joint area after prolonged sitting. Her quality of life is severely influenced by the symptoms. She used to have good and bad days but now they are only bad days. She had a instrumented fusion done L2-S1 6 years ago at [facility]. She came to see me for 2nd opinion to see if she was a surgical candidate to address her symptoms. The physician pediatric physical therapy assistant ordered a CT of the lumbar spine which we reviewed today in detail. The CT of the lumbar spine shows a fusion from L3 to the sacrum, osteoporosis and thoraco lumbar scoliosis. I explained to the patient why she is not a surgical candidate. The main reason is obviously osteoporosis. She has tried all kinds of pain management in the past, including a spinal cord stimulator trial, facet denervations and all types of injections. I would like to refer to our pain and management team to see if she is a candidate for a pain pump or for one of the newer type of devices to treat back pain. I spent 30 minutes in this consult for preparation, review of imaging and discussing plan of care. Thank you for the referral, Mj Gar MD, PhD [facility] Trained Neurosurgeon Director, [facility] (2) Failed back syndrome, lumbar: Code(s): M96.1 - Postlaminectomy syndrome, not elsewhere classified Coding Level of Care Code Est Pt Level 4 (79082) Diagnoses Scoliosis (and kyphoscoliosis), idiopathic M41.20 Failed back syndrome, lumbar M96.1
== END 2023-04-16 16:02 | disposition home or self-care (01) ==
PROVIDERS: PCP Registered Nurse; Visit Provider Neurological Surgery
DX: M41.20 Other idiopathic scoliosis, site unspecified (principal); M96.1 Postlaminectomy syndrome, not elsewhere classified
CPT/HCPCS: 99214

== ENCOUNTER → 2023-04-16 15:11 | Outpatient (BNVA) | payer MEDICARE, OTHER, SELFPAY | PROVIDERS: PCP Registered Nurse; Visit Provider Neurological Surgery | DX: M41.20 Other idiopathic scoliosis, site unspecified (principal); M96.1 Postlaminectomy syndrome, not elsewhere classified | CPT/HCPCS: 99212 ==

== ENCOUNTER 2023-04-22 14:01 | Outpatient (AMB) | payer MEDICARE, OTHER, SELFPAY ==
--- NOTE | 2023-04-22 14:07 | MHC.OFFVIS ---
Intake Vital Signs 04/22/23 14:20 Height 4 ft 11 in Weight 181 lb BMI 36.6 BP 150/92 H Blood Pressure Location Rt brachial Position Sitting Respiration 14 Pulse 87 Pulse Source Pulse Oximeter Pulse Oximetry (%) 94 Oxygen Delivery Method Room Air Intake Visit Reasons: Discuss pain pump/Dr. Gar referral Intake Note: patient comes in for initial visit was referred by . Allergies No Known Allergies [No Known Allergies*] Allergy (Verified 04/22/23 14:22) HPI HPI Comments History of Present Illness Details Brenda is very pleasant 87 years old female who presents in my office with complains on pain in bilateral cervical thoracic and lumbar spine with radiation of the pain into the cuff of the right lower extremity. She went for evaluation to Dr. Gar' office and the referral was made to pain management and specifically for intrathecal drug delivery system pain pump. Because of her pain she cannot sleep normally cannot do activities of daily living she can take care of herself but she can not function normally. She is on permanent disability and retired. She reports that weather changes in movements aggravate her pain. Heat applications and oral medications make her pain better. She reports that pain is worse in the middle of the day. In terms of tissue damage she reports her pain as shooting, sharp, dull, sore, hurting, aching, heavy, exhausting sensation. She reports multiple surgeries in her back as well as multiple surgeries in her cervical spine. She had MRI images at [facility] results of which dictated as below. The date of the MRI is 04/03/2023. She had physical therapy without improvements reports feeling good after massage therapy but it does not last long he reported that in the past she received acupuncture and it helps her with sciatica pain and she tried 10s unit at home which did not help her pain. In the past she received a trial of spinal cord stimulator during which she reported stimulation in the motor anterior portion of the spine which resulted in involuntary leg movements when spinal cord stimulator was turned on. She has significant scoliosis and rotational deformity of the lumbar and thoracic spine. Her posterior position of the electrodes might not be anatomically corresponding with the posterior portion of the thoracic spinal cord. 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 Social history she is retired individual. She denies smoking cigarettes occasional drink alcohol she drinks caffeinated beverages 1 cup of coffee a day and she denies recreational drugs. She is currently taking oxycodone 5 mg b.i.d. to help her pain but she denies significant help from this medication. [facility] Medical History Back pain with history of spinal surgery Bleeding hemorrhoid Chronic back pain HTN (hypertension) Joint pain Review of Systems Const Reports no additional complaints, Denies body aches, Denies fever(s) and Denies frequent falls ENT Reports Normal hearing present and Reports neck pain Card Details: Denies any dizziness or lightheadedness being cause of fall. Reports no additional complaints and Denies lightheadedness Resp Reports no additional complaints GI Reports as per HPI Reports as per HPI Musc Reports as per HPI, Reports back pain, Reports myalgias, Reports arthralgias, Reports joint swelling, Reports neck pain and Reports stiffness Neuro Reports as per HPI, Reports Normal hearing present, Denies Abnormal speech present, Denies frequent falls and Denies Sensory deficit (Neuro) Psych Reports as per HPI Aller/Immun Reports no additional complaints Physical Exam Vital Signs: Last Vital Signs Pulse 87 04/22/23 14:20 Resp 14 04/22/23 14:20 BP 150/92 H 04/22/23 14:20 Pulse Ox 94 04/22/23 14:20 Oxygen Delivery Method Room Air 04/22/23 14:20 BMI result Body Mass Index 36.6 Const General: comfortable, no acute distress and well developed Nutritional Appearance: average body habitus Orientation/consciousness: patient oriented x3 Limitations: no limitations Eyes General: appearance normal, both eyes and all related structures Pupils: Equal, round and reactive pupils present EOM: EOMs intact bilaterally Neck Neck: Yes normal visual inspection and No full ROM Chest Chest palpation & inspection: normal inspection of the chest Resp Effort & Inspection: normal respiratory effort, able to speak in complete sentences, normal respiratory pattern, no audible wheezes and no cough Cardio Jugular venous distension: no JVD GI Inspection: Yes normal to inspection Back/Spine/Pelvis Thoracic/Lumbar Spine: Thoracic/lumbar spine scar(s), kyphosis and Thoracic/lumbar scoliosis Neuro General: patient oriented x3 and gait normal Cranial nerves: Yes CN's II-XII intact bilaterally, Yes Equal, round and reactive pupils present, Yes Normal hearing present and Yes Ability to bilaterally elevate shoulders present Speech: No Abnormal speech present Gait exam (Neuro): Normal gait present Motor exam (neuro): 5/5 motor strength present throughout Sensory Exam: No Sensory deficit (Neuro) Extrem General: No pedal edema Psych Speech and movement: Normal speech and movement present Affect: normal affect Attitude: cooperative Thought process: Normal thought process present Thought content: Normal thought content present Insight: Good insight present (Psych) Judgement: Good judgement present (Psych) Results Reviewed Results Reviewed: CT scan lumbar spine 04/03/2023 clinical information: Idiopathic scoliosis. Findings: There are postoperative changes following posterior instrumental fusion spanning L2-S1 levels as well as right bony pelvic screw extending beyond the limits of this study. Left-sided transpedicular screw with vertical connecting lexie at L2, L4, L5, and S1 and right-sided transpedicular screws with a vertical connecting lexie at L3, L4 and S1. The surgical hardware appears intact and there is no evidence of hardware loosening. So it bridging posterolateral bone fusion mass in postoperative level. There is diffuse osteopenia. Severe rightward cortex scoliotic curvature of the lumbar spine with the appy X at L3-L4. There is a grade 1 right lateral listhesis of L4 on L5 and there is grade 1 left lateral listhesis of L2 on L3. There is degenerative endplate sclerosis at T12-L1. There is degenerative disc disease at all lumbar levels and there is a vacuum phenomenon at L1-L2. No acute fractures no acute subluxation. Our to iliac atherosclerotic calcification. There are no significant extra-spinal soft tissue findings. Right iliac bone graft donor site. L1-L2 diffuse annular disc bulge and there is bilateral hypertrophic facet arthropathy. Findings in concert results in a symmetric right subarticular zone stenosis and [id number] bilateral foraminal stenosis. There is vacuum phenomenon within the right neural foramen. L2-L3: Diffuse annular disc bulge postoperative changes as discussed above. Central canal is not 12 assess due to artifact from surgical hardware. Mild bony foraminal encroachment bilaterally. L3-L4 diffuse annular disc bulge bilateral hypertrophic facet arthropathy. For left bilateral bridging disc osteophyte protrusion. Central canal is not well assessed due to artifact from surgical hardware. Osteophyte Jay reading and facet arthropathy result in moderate left-sided bony foraminal encroachment. L4-5 diffuse disc osteophyte complex with a superimposed far right lateral disc osteophyte protrusion. Bilateral hypertrophic facet arthropathy. The central canal is not well assessed due to artifact from the surgical hardware. Osteophyte ache ranging and facet arthropathy result in a symmetric right subarticular zone stenosis. Mild foraminal encroachment bilaterally. At L5-S1 there is diffuse disc osteophyte complex and there is advanced bilateral facet arthropathy. Findings in concert results in mild central canal stenosis. Bilateral subarticular zone stenosis and [id number] right sided foraminal stenosis. Assessment & Plan Assessment & Plan (1) Postlaminectomy syndrome: Code(s): M96.1 - Postlaminectomy syndrome, not elsewhere classified (2) Scoliosis (and kyphoscoliosis), idiopathic: Code(s): M41.20 - Other idiopathic scoliosis, site unspecified (3) Lumbar radiculopathy: Code(s): M54.16 - Radiculopathy, lumbar region (4) Chronic pain syndrome: Code(s): G89.4 - Chronic pain syndrome (5) Postlaminectomy syndrome, cervical: Code(s): M96.1 - Postlaminectomy syndrome, not elsewhere classified Plan Prolonged and very detailed discussion was held today with the patient and her daughter. The patient admits pain in multiple segments of the lumbar spine. Unfortunately intrathecal pain pump works only at the segment were tip of the catheter is inserted. With T8-T9 position for the lumbar pain, T 3 to T4 for the thoracic pain and cervical position for cervicalgia. She reports pain in cervical , thoracic and lumbar spine. This alone promises less than adequate results on intrathecal pain pump as it is suggested by neuro surgery. On top of that she has very limited space to access the intrathecal space without spinal cord injury through the needle. This will be L1-L2 interspace which in itself could be difficult to achieve because of her significant scoliosis, osteoporosis, and rotational deformity of the spine. She had a trial of spinal cord stimulator 6 years ago. It appears to be that this trial was not successful because of misposition of the electrodes. It appears that electrodes were stimulating anterior portion of the thoracic spine. Explained to the patient that I may try to perform stimulation of the thoracic spine although I warned her that it will be difficult procedure to perform. I also can try stimulation of the cervical spine and eventually if she likes the stimulation I can perform [employer] connection with band battery to 4 leads in her thoracic and lumbar spine. Again because of the significant changes in her spinal column it will be a difficult procedure to perform however I told her that I do not mind to try. She needs to go for psychological evaluation if she wishes to proceed with [employer] SCS. I explained to the patient that her condition is chronic and at her age chronic therapy with opioids might be preferred to all those above described invasive procedures provided the chronic opioid therapy will not result in complications such as significant mental obfuscation, and mental acuity regression. I explained to her that in my opinion the rotation of the opioids could be reasonable thing to do with conversion her to fentanyl patch 25 mcg per hour, and mild gentle escalation to possibly 37.5 micro g per hour, I would not recommend to increase the dose of the fentanyl patch higher than 50 micro g per hour for her. I would place a certain limits to opioid trial possibly no more than 6-12 months with patient's understanding that if those doses of the opioid do not work for her or she will develop side effects on the opioid medications- she needs to be weaned off of the opioids and continue on nonopioid medications. When she asked me whether not I can take over her opioid medications here in my office I explained to her that due to a staffing short where not admitting new patients into our opioid program. Alternatively weaning her from the current doses of the oxycodone 5 mg b.i.d. and starting her all micro doses of naltrexone could be a possible way to treat her painful conditions. I also recommended patient to stay active, she enjoys swimming in the swimming pool I recommended her to continue this as an exercise as well as possibly engage in other low impact aerobic exercise such is elliptical machine and/or stationary bicycle. Coding Level of Care Code New Pt Level 4 (63902) Diagnoses Postlaminectomy syndrome M96.1 Scoliosis (and kyphoscoliosis), idiopathic M41.20 Lumbar radiculopathy M54.16 Chronic pain syndrome G89.4 Postlaminectomy syndrome, cervical M96.1
[2023-04-22 14:20] VITALS: BP 150/92; PULSE 87; RESP 14; O2SAT 94; BMI 36.6
== END 2023-04-22 15:02 | disposition home or self-care (01) ==
PROVIDERS: PCP Registered Nurse; Visit Provider Anesthesiology
DX: G89.4 Chronic pain syndrome (principal); M96.1 Postlaminectomy syndrome, not elsewhere classified; M41.20 Other idiopathic scoliosis, site unspecified; M54.16 Radiculopathy, lumbar region; Z79.891 Long term (current) use of opiate analgesic
CPT/HCPCS: 99204

== ENCOUNTER → 2023-04-22 14:01 | Outpatient (BNVA) | payer MEDICARE, OTHER, SELFPAY | PROVIDERS: PCP Registered Nurse; Visit Provider Anesthesiology ==

== ENCOUNTER 2023-08-07 13:49 | Outpatient (AMB) | payer MEDICARE, OTHER, SELFPAY ==
[2023-08-07 13:53] VITALS: BP 140/80; PULSE 88; TEMP 36.6; O2SAT 96; BMI 35.9
--- NOTE | 2023-08-07 13:53 | AM.OFFWIN_ITS ---
Intake Vital Signs 08/07/23 13:53 Height 4 ft 11 in Weight 178 lb BMI 35.9 BP 140/80 H Blood Pressure Location Lt brachial Position Sitting Pulse 88 Pulse Source Pulse Oximeter Temp 97.9 F Temp Source Temporal Artery Scan Pulse Oximetry (%) 96 Oxygen Delivery Method Room Air Intake Visit Reasons: EP, cough (masked) Intake Note: pt is here today for cough started 1 week ago Patient Tobacco Use Status: Never used Tobacco Allergies No Known Allergies [No Known Allergies*] Allergy (Verified 08/07/23 13:54) Do you need a note to return to daycare/school/sports/work: No HPI HPI Comments History of Present Illness Details She started with a cold last week with nasal congestion She was taking Daytime and Nighttime multisinus [facility] brand No improvement of symptoms She was told by pharmacist yesterday to stop those meds due to HTN She switched in the last 24 hours to [facility] brand cough medicine She said + headache, cough and congestion Cough is non-productive + fatigue No fever or chills She had negative at home She said sinuses are clogged with worsening sinus pressure No ear pain currently [facility] Medical History Back pain with history of spinal surgery Bleeding hemorrhoid Chronic back pain HTN (hypertension) Joint pain Social History Patient Tobacco Use Status: Never used Tobacco Review of Systems Const Denies chills, Reports fatigue, Denies fever(s) and Reports headache(s) Eyes Denies blurry vision ENT Reports otalgia, Reports headache(s), Reports nasal congestion, Reports nasal discharge, Reports sinus pressure and Denies sore throat Card Denies chest pain and Denies dyspnea Resp Reports chest congestion, Reports cough and Denies dyspnea GI Denies abdominal pain Neuro Reports headache(s) Endo Reports fatigue Physical Exam Vital Signs: Last Vital Signs Temp 97.9 F 08/07/23 13:53 Pulse 88 08/07/23 13:53 BP 140/80 H 08/07/23 13:53 Pulse Ox 96 08/07/23 13:53 Oxygen Delivery Method Room Air 08/07/23 13:53 BMI result Body Mass Index 35.9 General: Non-toxic, NAD. Speaking full sentences. Skin: Warm dry throughout Eye: EOMI HENT: Airway patent. Uvula midline. No pharyngeal erythema or edema. No GIS COORDINATOR. + frontal sinus tenderness to palpation Bilateral canals clear.+ fluid behind TMs. TM non-erythematous, non-bulging. No TM perforation or hemotympanum noted. Respiratory: CTA bilaterally. No wheezes, rales or rhonchi Cardiac: RRR. No murmur MSK: Full ROM extremities. Neurology: A/O. No aphasia or facial droop. Gait without abnormality Psych: Good mood and affect Assessment & Plan Assessment & Plan (1) Sinusitis: Code(s): J32.9 - Chronic sinusitis, unspecified Qualifiers: Sinusitis location: frontal Chronicity: acute Recurrence: non- recurrent Qualified Code(s): J01.10 - Acute frontal sinusitis, unspecified Plan: Patient seen and evaluated. She will monitor her BP and avoid meds to raise her BP Azithrimycin as prescribed F/U with PCP CP or SOB go to ED Patient gave verbal understanding and had no additional questions or concerns at time of discharge All questions answered Medications: New azithromycin start on day 2 of therapy 250 mg PO DAILY 6 days 6 tabs 0RF Coding Level of Care Code Est Pt Level 3 (61538) Diagnoses Acute non-recurrent frontal sinusitis J01.10 Sinusitis location: frontal Chronicity: acute Recurrence: non-recurrent
== END 2023-08-07 14:50 | disposition home or self-care (01) ==
PROVIDERS: PCP Registered Nurse; Visit Provider Physician Assistant
DX: J01.10 Acute frontal sinusitis, unspecified (principal)
CPT/HCPCS: 99213

== ENCOUNTER 2023-09-19 13:52 | Outpatient (AMB) | payer MEDICARE, OTHER, SELFPAY ==
--- NOTE | 2023-09-19 13:54 | MHC.OFFVIS ---
Intake Vital Signs 09/19/23 14:10 Height 4 ft 11 in Weight 179 lb 4 oz BMI 36.2 BP 136/82 Blood Pressure Location Lt brachial Position Sitting Respiration 14 Pulse 88 Pulse Source Pulse Oximeter Pulse Oximetry (%) 96 Oxygen Delivery Method Room Air Intake Visit Reasons: Neck pain/confirmed Intake Note: Patient came in for neck pain. Reports pain 5/10. Allergies No Known Allergies [No Known Allergies*] Allergy (Verified 09/19/23 14:09) HPI HPI Comments History of Present Illness Details Brenda is very pleasant 87 years old female who is back in my office to discuss treatment options. Very prolonged and detailed conversation ensued today, we discussed treatment of her lower back pain as well as pain in the cervical spine. We discussed [employer] SCS as well as sprint PNS to treat her pain. Briefly intrathecal pain pump was mentioned during the conversation as well. Patient had opportunity and used it to ask multiple questions about each of the procedures. In the past she received with [facility] radiofrequency ablation of the neck which were helpful for her pain in the neck. Instead I offered her to try sprint PNS to help the pain in the neck. In the order to perform this procedure I need to obtain information from the [employer] [facility] about levels of the procedures which were performed on her. After that I will schedule the procedure for her. If she would like to get significantly better help on permanent basis [employer] SCS is actually a good procedure but the patient needs to go for psychological evaluation with [facility] point psychology. Prior: pain in bilateral cervical thoracic and lumbar spine with radiation of the pain into the cuff of the right lower extremity. She went for evaluation to Dr. Gar' office and the referral was made to pain management and specifically for intrathecal drug delivery system pain pump. She had MRI images at [facility] results of which dictated as below. The date of the MRI is 04/03/2023. In the past she received a trial of spinal cord stimulator during which she reported stimulation in the motor anterior portion of the spine which resulted in involuntary leg movements when spinal cord stimulator was turned on. She has significant scoliosis and rotational deformity of the lumbar and thoracic spine. Her posterior position of the electrodes might not be anatomically corresponding with the posterior portion of the thoracic spinal cord. [facility] Medical History Back pain with history of spinal surgery Bleeding hemorrhoid Chronic back pain HTN (hypertension) Joint pain Social History Patient Tobacco Use Status: Never used Tobacco Review of Systems Const All systems reviewed & are unremarkable except as noted in HPI and below ENT Reports Normal hearing present Neuro Reports Normal hearing present, Denies Abnormal speech present and Denies Sensory deficit (Neuro) Physical Exam Vital Signs: Last Vital Signs Pulse 88 09/19/23 14:10 Resp 14 09/19/23 14:10 BP 136/82 09/19/23 14:10 Pulse Ox 96 09/19/23 14:10 Oxygen Delivery Method Room Air 09/19/23 14:10 BMI result Body Mass Index 36.2 Const General: comfortable, no acute distress and well developed Nutritional Appearance: average body habitus Orientation/consciousness: patient oriented x3 Limitations: no limitations Eyes General: appearance normal, both eyes and all related structures Pupils: Equal, round and reactive pupils present EOM: EOMs intact bilaterally Neck Neck: Yes normal visual inspection and No full ROM Chest Chest palpation & inspection: normal inspection of the chest Resp Effort & Inspection: normal respiratory effort, able to speak in complete sentences, normal respiratory pattern, no audible wheezes and no cough Cardio Jugular venous distension: no JVD GI Inspection: Yes normal to inspection Back/Spine/Pelvis Thoracic/Lumbar Spine: Thoracic/lumbar spine scar(s), kyphosis and Thoracic/lumbar scoliosis Neuro General: patient oriented x3 and gait normal Cranial nerves: Yes CN's II-XII intact bilaterally, Yes Equal, round and reactive pupils present, Yes Normal hearing present and Yes Ability to bilaterally elevate shoulders present Speech: No Abnormal speech present Gait exam (Neuro): Normal gait present Motor exam (neuro): 5/5 motor strength present throughout Sensory Exam: No Sensory deficit (Neuro) Extrem General: No pedal edema Psych Speech and movement: Normal speech and movement present Affect: normal affect Attitude: cooperative Thought process: Normal thought process present Thought content: Normal thought content present Insight: Good insight present (Psych) Judgement: Good judgement present (Psych) Results Reviewed Results Reviewed: CT scan lumbar spine 04/03/2023 clinical information: Idiopathic scoliosis. Findings: There are postoperative changes following posterior instrumental fusion spanning L2-S1 levels as well as right bony pelvic screw extending beyond the limits of this study. Left-sided transpedicular screw with vertical connecting lexie at L2, L4, L5, and S1 and right-sided transpedicular screws with a vertical connecting lexie at L3, L4 and S1. The surgical hardware appears intact and there is no evidence of hardware loosening. So it bridging posterolateral bone fusion mass in postoperative level. There is diffuse osteopenia. Severe rightward cortex scoliotic curvature of the lumbar spine with the appy X at L3-L4. There is a grade 1 right lateral listhesis of L4 on L5 and there is grade 1 left lateral listhesis of L2 on L3. There is degenerative endplate sclerosis at T12-L1. There is degenerative disc disease at all lumbar levels and there is a vacuum phenomenon at L1-L2. No acute fractures no acute subluxation. Our to iliac atherosclerotic calcification. There are no significant extra-spinal soft tissue findings. Right iliac bone graft donor site. L1-L2 diffuse annular disc bulge and there is bilateral hypertrophic facet arthropathy. Findings in concert results in a symmetric right subarticular zone stenosis and [id number] bilateral foraminal stenosis. There is vacuum phenomenon within the right neural foramen. L2-L3: Diffuse annular disc bulge postoperative changes as discussed above. Central canal is not 12 assess due to artifact from surgical hardware. Mild bony foraminal encroachment bilaterally. L3-L4 diffuse annular disc bulge bilateral hypertrophic facet arthropathy. For left bilateral bridging disc osteophyte protrusion. Central canal is not well assessed due to artifact from surgical hardware. Osteophyte Jay reading and facet arthropathy result in moderate left-sided bony foraminal encroachment. L4-5 diffuse disc osteophyte complex with a superimposed far right lateral disc osteophyte protrusion. Bilateral hypertrophic facet arthropathy. The central canal is not well assessed due to artifact from the surgical hardware. Osteophyte ache ranging and facet arthropathy result in a symmetric right subarticular zone stenosis. Mild foraminal encroachment bilaterally. At L5-S1 there is diffuse disc osteophyte complex and there is advanced bilateral facet arthropathy. Findings in concert results in mild central canal stenosis. Bilateral subarticular zone stenosis and [id number] right sided foraminal stenosis. Assessment & Plan Assessment & Plan (1) Postlaminectomy syndrome: Code(s): M96.1 - Postlaminectomy syndrome, not elsewhere classified (2) Scoliosis (and kyphoscoliosis), idiopathic: Code(s): M41.20 - Other idiopathic scoliosis, site unspecified (3) Lumbar radiculopathy: Code(s): M54.16 - Radiculopathy, lumbar region (4) Chronic pain syndrome: Code(s): G89.4 - Chronic pain syndrome (5) Postlaminectomy syndrome, cervical: Code(s): M96.1 - Postlaminectomy syndrome, not elsewhere classified Plan Prolonged and very detailed discussion was held again today with the patient and her daughter. The patient admits pain in multiple segments of the lumbar spine. She is more focus now on the cervical spine however she mentioned lower back pain as well. Unfortunately intrathecal pain pump works only at the segment were tip of the catheter is inserted. With T8-T9 position for the lumbar pain, T 3 to T4 for the thoracic pain and cervical position for cervicalgia. She reports pain in cervical , thoracic and lumbar spine. This alone promises less than adequate results on intrathecal pain pump as it is suggested by neuro surgery. On top of that she has very limited space to access the intrathecal space without spinal cord injury through the needle. This will be L1-L2 interspace which in itself could be difficult to achieve because of her significant scoliosis, osteoporosis, and rotational deformity of the spine. She had a trial of spinal cord stimulator 6 years ago. It appears to be that this trial was not successful because of misposition of the electrodes. It appears that electrodes were stimulating anterior portion of the thoracic spine. Explained to the patient that I may try to perform stimulation of the thoracic spine although I warned her that it will be difficult procedure to perform. I also can try stimulation of the cervical spine and eventually if she likes the stimulation I can perform [employer] connection with band battery to 4 leads in her thoracic and lumbar spine. Again because of the significant changes in her spinal column it will be a difficult procedure to perform however I told her that I do not mind to try. She needs to go for psychological evaluation if she wishes to proceed with [employer] SCS. She is currently on opioid medications prescribed by primary care physician. She is getting oxycodone. I offered today for treatment of cervicalgia cervical pain sprint PNS versus [employer] SCS. The patient decided eventually to go for Sprint PNS after very careful in prolonged conversation. I think she has not very eager to go for permanent implant device. . Patient Instructions: I here by testify that I spent 40 minutes in conversation with this patient as well as planning her care evaluating her prior records and organizing this note. Coding Level of Care Code Est Pt Level 5 (14610) Diagnoses Postlaminectomy syndrome M96.1 Scoliosis (and kyphoscoliosis), idiopathic M41.20 Lumbar radiculopathy M54.16 Chronic pain syndrome G89.4 Postlaminectomy syndrome, cervical M96.1
[2023-09-19 14:10] VITALS: BP 136/82; PULSE 88; RESP 14; O2SAT 96; BMI 36.2
== END 2023-09-19 14:44 | disposition home or self-care (01) ==
PROVIDERS: PCP Registered Nurse; Visit Provider Anesthesiology
DX: M96.1 Postlaminectomy syndrome, not elsewhere classified (principal); M41.20 Other idiopathic scoliosis, site unspecified; M54.16 Radiculopathy, lumbar region; G89.4 Chronic pain syndrome
CPT/HCPCS: 99215

== ENCOUNTER → 2023-09-19 13:52 | Outpatient (BNVA) | payer MEDICARE, OTHER, SELFPAY | PROVIDERS: PCP Registered Nurse; Visit Provider Anesthesiology | DX: M96.1 Postlaminectomy syndrome, not elsewhere classified (principal); M41.20 Other idiopathic scoliosis, site unspecified; M54.16 Radiculopathy, lumbar region; G89.4 Chronic pain syndrome | CPT/HCPCS: 99212 ==

== ENCOUNTER 2023-09-20 10:24 | Outpatient (REF) | payer MEDICARE, OTHER, SELFPAY | END 2023-09-20 10:25 | disposition home or self-care (01) | LOC: HO.SH 10:24 | PROVIDERS: Visit Provider Registered Nurse | DX: Z01.10 Encounter for examination of ears and hearing without abnormal findings (principal); H90.3 Sensorineural hearing loss, bilateral | CPT/HCPCS: 92552; 92556 ==

== ENCOUNTER 2023-09-20 11:00 | Outpatient (REF) | payer SELFPAY | END 2023-09-20 11:01 | disposition home or self-care (01) | LOC: HO.HAP 11:00 | PROVIDERS: Visit Provider Registered Nurse | DX: Z46.1 Encounter for fitting and adjustment of hearing aid (principal) | CPT/HCPCS: 92592 ==

== ENCOUNTER 2023-09-23 10:17 | Outpatient (REF) | payer SELFPAY | END 2023-09-23 10:18 | disposition home or self-care (01) | LOC: HO.HAP 10:17 | PROVIDERS: Visit Provider Registered Nurse | DX: Z13.89 Encounter for screening for other disorder (principal) ==

== ENCOUNTER 2023-09-26 13:57 | Outpatient (REF) | payer SELFPAY | END 2023-09-26 13:58 | disposition home or self-care (01) | LOC: HO.HAP 13:57 | PROVIDERS: Visit Provider Registered Nurse | DX: Z13.89 Encounter for screening for other disorder (principal) ==

== ENCOUNTER 2023-10-10 15:01 | Outpatient (AMB) | payer MEDICARE, OTHER, SELFPAY ==
--- NOTE | 2023-10-10 15:06 | A.OFFVIS_ITS ---
Intake Vital Signs 10/10/23 15:13 Height 4 ft 11 in Weight 179 lb BMI 36.1 BP 140/70 H Blood Pressure Location Lt brachial Position Sitting Respiration 12 Pulse 73 Pulse Source Pulse Oximeter Pulse Oximetry (%) 96 Oxygen Delivery Method Room Air Intake Visit Reasons: Discussion on Procedures Intake Note: Patient comes in to discuss procedures. Reports pain 01/05. Allergies No Known Allergies [No Known Allergies*] Allergy (Verified 10/10/23 15:14) HPI HPI Comments History of Present Illness Details Brenda is very pleasant 87 years old female who is back in my office to discuss treatment options. Very prolonged and detailed conversation ensued today once more, we discussed treatment of her lower back pain as well as pain in the cervical spine. We discussed [employer]CS versus [employer] spinal cord stimulator versus intrathecal pain pump. The patient and her daughter who was not present during the conversation were asking multiple questions about risks, benefits, and alternatives of the procedure. Chronic opioid therapy as the alternative interventional pain management was briefly explained to the patient, limitations of the chronic opioid therapy was also explained to the patient. She is currently prescribed oxycodone 5 mg t.i.d. by primary care provider. In the past she received with [facility] radiofrequency ablation of the neck which were helpful for her pain in the neck. Sprint PNS was not discussed. At the end of the conversation patient was left without any conclusion and decided to take a time-out to think about it. She wants to discuss it with her relatives as well. Prior: pain in bilateral cervical thoracic and lumbar spine with radiation of the pain into the cuff of the right lower extremity. She went for evaluation to Dr. Gar' office and the referral was made to pain management and specifically for intrathecal drug delivery system pain pump. She had MRI images at [facility] results of which dictated as below. The date of the MRI is 04/03/2023. In the past she received a trial of spinal cord stimulator during which she reported stimulation in the motor anterior portion of the spine which resulted in involuntary leg movements when spinal cord stimulator was turned on. She has significant scoliosis and rotational deformity of the lumbar and thoracic spine. Her posterior position of the electrodes might not be anatomically corresponding with the posterior portion of the thoracic spinal cord. [facility] Medical History Back pain with history of spinal surgery Bleeding hemorrhoid Chronic back pain HTN (hypertension) Joint pain Social History Patient Tobacco Use Status: Never used Tobacco Review of Systems Const All systems reviewed & are unremarkable except as noted in HPI and below ENT Reports Normal hearing present Neuro Reports Normal hearing present, Denies Abnormal speech present and Denies Sensory deficit (Neuro) Physical Exam Vital Signs: Last Vital Signs Pulse 73 10/10/23 15:13 Resp 12 10/10/23 15:13 BP 140/70 H 10/10/23 15:13 Pulse Ox 96 10/10/23 15:13 Oxygen Delivery Method Room Air 10/10/23 15:13 BMI result Body Mass Index 36.1 Const General: comfortable, no acute distress and well developed Nutritional Appearance: average body habitus Orientation/consciousness: patient oriented x3 Limitations: no limitations Eyes General: appearance normal, both eyes and all related structures Pupils: Equal, round and reactive pupils present EOM: EOMs intact bilaterally Neck Neck: Yes normal visual inspection and No full ROM Chest Chest palpation & inspection: normal inspection of the chest Resp Effort & Inspection: normal respiratory effort, able to speak in complete sentences, normal respiratory pattern, no audible wheezes and no cough Cardio Jugular venous distension: no JVD GI Inspection: Yes normal to inspection Back/Spine/Pelvis Thoracic/Lumbar Spine: Thoracic/lumbar spine scar(s), kyphosis and Thoracic/lumbar scoliosis Neuro General: patient oriented x3 and gait normal Cranial nerves: Yes CN's II-XII intact bilaterally, Yes Equal, round and reactive pupils present, Yes Normal hearing present and Yes Ability to b ilaterally elevate shoulders present Speech: No Abnormal speech present Gait exam (Neuro): Normal gait present Motor exam (neuro): 5/5 motor strength present throughout Sensory Exam: No Sensory deficit (Neuro) Extrem General: No pedal edema Psych Speech and movement: Normal speech and movement present Affect: normal affect Attitude: cooperative Thought process: Normal thought process present Thought content: Normal thought content present Insight: Good insight present (Psych) Judgement: Good judgement present (Psych) Results Reviewed Results Reviewed: CT scan lumbar spine 04/03/2023 clinical information: Idiopathic scoliosis. Findings: There are postoperative changes following posterior instrumental fusion spanning L2-S1 levels as well as right bony pelvic screw extending beyond the limits of this study. Left-sided transpedicular screw with vertical connecting lexie at L2, L4, L5, and S1 and right-sided transpedicular screws with a vertical connecting lexie at L3, L4 and S1. The surgical hardware appears intact and there is no evidence of hardware loosening. So it bridging posterolateral bone fusion mass in postoperative level. There is diffuse osteopenia. Severe rightward cortex scoliotic curvature of the lumbar spine with the appy X at L3-L4. There is a grade 1 right lateral listhesis of L4 on L5 and there is grade 1 left lateral listhesis of L2 on L3. There is degenerat albert endplate sclerosis at T12-L1. There is degenerative disc disease at all lumbar levels and there is a vacuum phenomenon at L1-L2. No acute fractures no acute subluxation. Our to iliac atherosclerotic calcification. There are no significant extra-spinal soft tissue findings. Right iliac bone graft donor site. L1-L2 diffuse annular disc bulge and there is bilateral hypertrophic facet arthropathy. Findings in concert results in a symmetric right subarticular zone stenosis and [id number] bilateral foraminal stenosis. There is vacuum phenomenon within the right neural foramen. L2-L3: Diffuse annular disc bulge postoperative changes as discussed above. Central canal is not 12 assess due to artifact from surgical hardware. Mild bony foraminal encroachment bilaterally. L3-L4 diffuse annular disc bulge bilateral hypertrophic facet arthropathy. For left bilateral bridging disc osteophyte protrusion. Central canal is not well assessed due to artifact from surgical hardware. Osteophyte Jay reading and facet arthropathy result in moderate left-sided bony foraminal encroachment. L4-5 diffuse disc osteophyte complex with a superimposed far right lateral disc osteophyte protrusion. Bilateral hypertrophic facet arthropathy. The central canal is not well assessed due to artifact from the surgical hardware. Osteophyte ache ranging and facet arthropathy result in a symmetric right subarticular zone stenosis. Mild foraminal encroachment bilaterally. At L5-S1 there is diffuse disc osteophyte complex and there is advanced bilateral facet arthropathy. Findings in concert results in mild central canal stenosis. Bilateral subarticular zone stenosis and [id number] right sided foraminal stenosis. Assessment & Plan Assessment & Plan (1) Postlaminectomy syndrome: Code(s): M96.1 - Postlaminectomy syndrome, not elsewhere classified (2) Scoliosis (and kyphoscoliosis), idiopathic: Code(s): M41.20 - Other idiopathic scoliosis, site unspecified (3) Lumbar radiculopathy: Code(s): M54.16 - Radiculopathy, lumbar region (4) Chronic pain syndrome: Code(s): G89.4 - Chronic pain syndrome (5) Postlaminectomy syndrome, cervical: Code(s): M96.1 - Postlaminectomy syndrome, not elsewhere classified Plan Prolonged and very detailed discussion was held again today with the patient and her daughter. The patient admits pain in multiple segments of the lumbar spine. She is more focus now on the cervical spine however she mentioned lower back pain as well. Unfortunately intrathecal pain pump works only at the segment were tip of the catheter is inserted. She had a trial of spinal cord stimulator 6 years ago. It appears to be that this trial was not successful because of misposition of the electrodes. It appears that electrodes were stimulating anterior portion of the thoracic spine. Explained to the patient that I may try to perform stimulation of the thoracic spine although I warned her that it will be difficult procedure to perform. I also can try stimulation of the cervical spine and eventually if she likes the stimulation I can perform [employer] connection with band battery to 4 leads in her thoracic and lumbar spine. Again because of the significant changes in her spinal column it will be a difficult procedure to perform however I told her that I do not mind to try. She needs to go for psychological evaluation if she wishes to proceed with [employer] SCS. She is currently on opioid medications prescribed by primary care physician. She is getting oxycodone 5 mg t.i.d. risks and limitations of chronic opioid therapy were explained to the patient. The nature of the opioid program in this office which is very strict was also explained to the patient. No new appointment is necessary until patient will decide what she wants to do. Patient Instructions: I here by testify that I spent 40 minutes in conversation with this patient and her daughter as well as evaluating her prior records, prior studies, and organizing this note. Coding Level of Care Code Est Pt Level 4 (96169) Diagnoses Postlaminectomy syndrome M96.1 Scoliosis (and kyphoscoliosis), idiopathic M41.20 Lumbar radiculopathy M54.16 Chronic pain syndrome G89.4 Postlaminectomy syndrome, cervical M96.1
[2023-10-10 15:13] VITALS: BP 140/70; PULSE 73; RESP 12; O2SAT 96; BMI 36.1
== END 2023-10-10 15:46 | disposition home or self-care (01) ==
PROVIDERS: PCP Registered Nurse; Visit Provider Anesthesiology
DX: M96.1 Postlaminectomy syndrome, not elsewhere classified (principal); M41.20 Other idiopathic scoliosis, site unspecified; M54.16 Radiculopathy, lumbar region; G89.4 Chronic pain syndrome
CPT/HCPCS: 99214

== ENCOUNTER → 2023-10-10 15:01 | Outpatient (BNVA) | payer MEDICARE, OTHER, SELFPAY | PROVIDERS: PCP Registered Nurse; Visit Provider Anesthesiology | DX: M96.1 Postlaminectomy syndrome, not elsewhere classified (principal); M41.20 Other idiopathic scoliosis, site unspecified; M54.16 Radiculopathy, lumbar region; G89.4 Chronic pain syndrome; Z79.891 Long term (current) use of opiate analgesic | CPT/HCPCS: 99212 ==

== ENCOUNTER 2023-12-09 09:05 | Outpatient (AMB) | payer MEDICARE, OTHER, SELFPAY ==
--- NOTE | 2023-12-09 09:07 | MHC.OFFVIS ---
Vital Signs 12/09/23 09:14 Height 4 ft 11 in Weight 181 lb BMI 36.6 BP 130/72 Blood Pressure Location Lt brachial Position Sitting Respiration 14 Pulse 86 Pulse Source Pulse Oximeter Pulse Oximetry (%) 94 Oxygen Delivery Method Room Air Intake Visit Reasons: Follow Up Intake Note: Patient comes in for follow up. Reports pain 5/10. Allergies No Known Allergies [No Known Allergies*] Allergy (Verified 12/09/23 09:16) HPI Comments Details: Brenda is back in my office requesting her to be started on chronic opioid therapy. I explained to her that in this office chronic opioid therapy could be difficult for 88 years old patient with limited mobility. She would require her frequent visits to this office for random and regular pill counts random and regular UDS as well as possible procedures. She also is octogenarian and possibility exists of drug to drug interactions in her condition. Also cognitive decline possible on opioid medications. Therefore I recommended her to go for geriatric office to prescribe her chronic opioid medications. Referral to the [place] editorial writer office was made. My staff will facilitate to the patient's referral. Prior: pain in bilateral cervical thoracic and lumbar spine with radiation of the pain into the cuff of the right lower extremity. She went for evaluation to Dr. Gar' office and the referral was made to pain management and specifically for intrathecal drug delivery system pain pump. She had MRI images at [facility] results of which dictated as below. The date of the MRI is 04/03/2023. In the past she received a trial of spinal cord stimulator during which she reported stimulation in the motor anterior portion of the spine which resulted in involuntary leg movements when spinal cord stimulator was turned on. She has significant scoliosis and rotational deformity of the lumbar and thoracic spine. Her posterior position of the electrodes might not be anatomically corresponding with the posterior portion of the thoracic spinal cord. [facility] Medical History Back pain with history of spinal surgery Bleeding hemorrhoid Chronic back pain HTN (hypertension) Joint pain Social History Patient Tobacco Use Status: Never used Tobacco Review of Systems Const All systems reviewed & are unremarkable except as noted in HPI and below ENT Reports Normal hearing present Neuro Reports Normal hearing present, Denies Abnormal speech present and Denies Sensory deficit (Neuro) Physical Exam Const General: comfortable, no acute distress and well developed Nutritional Appearance: average body habitus Orientation/consciousness: patient oriented x3 Limitations: no limitations Eyes General: appearance normal, both eyes and all related structures Pupils: Equal, round and reactive pupils present EOM: EOMs intact bilaterally Neck Neck: Yes normal visual inspection and No full ROM Chest Chest palpation & inspection: normal inspection of the chest Resp Effort & Inspection: normal respiratory effort, able to speak in complete sentences, normal respiratory pattern, no audible wheezes and no cough Cardio Jugular venous distension: no JVD GI Inspection: Yes normal to inspection Back/Spine/Pelvis Thoracic/Lumbar Spine: Thoracic/lumbar spine scar(s), kyphosis and Thoracic/lumbar scoliosis Neuro General: patient oriented x3 and gait normal Cranial nerves: Yes CN's II-XII intact bilaterally, Yes Equal, round and reactive pupils present, Yes Normal hearing present and Yes Ability to bilaterally elevate shoulders present Speech: No Abnormal speech present Gait exam (Neuro): Normal gait present Motor exam (neuro): 5/5 motor strength present throughout Sensory Exam: No Sensory deficit (Neuro) Extrem General: No pedal edema Psych Speech and movement: Normal speech and movement present Affect: normal affect Attitude: cooperative Thought process: Normal thought process present Thought content: Normal thought content present Insight: Good insight present (Psych) Judgement: Good judgement present (Psych) Results Reviewed Results Reviewed: CT scan lumbar spine 04/03/2023 clinical information: Idiopathic scoliosis. Findings: There are postoperative changes following posterior instrumental fusion spanning L2-S1 levels as well as right bony pelvic screw extending beyond the limits of this study. Left-sided transpedicular screw with vertical connecting lexie at L2, L4, L5, and S1 and right-sided transpedicular screws with a vertical connecting lexie at L3, L4 and S1. The surgical hardware appears intact and there is no evidence of hardware loosening. So it bridging posterolateral bone fusion mass in postoperative level. There is diffuse osteopenia. Severe rightward cortex scoliotic curvature of the lumbar spine with the appy X at L3-L4. There is a grade 1 right lateral listhesis of L4 on L5 and there is grade 1 left lateral listhesis of L2 on L3. There is degenerative endplate sclerosis at T12-L1. There is degenerative disc disease at all lumbar levels and there is a vacuum phenomenon at L1-L2. No acute fractures no acute subluxation. Our to iliac atherosclerotic calcification. There are no significant extra-spinal soft tissue findings. Right iliac bone graft donor site. L1-L2 diffuse annular disc bulge and there is bilateral hypertrophic facet arthropathy. Findings in concert results in a symmetric right subarticular zone stenosis and [id number] bilateral foraminal stenosis. There is vacuum phenomenon within the right neural foramen. L2-L3: Diffuse annular disc bulge postoperative changes as discussed above. Central canal is not 12 assess due to artifact from surgical hardware. Mild bony foraminal encroachment bilaterally. L3-L4 diffuse annular disc bulge bilateral hypertrophic facet arthropathy. For left bilateral bridging disc osteophyte protrusion. Central canal is not well assessed due to artifact from surgical hardware. Osteophyte Jay reading and facet arthropathy result in moderate left-sided bony foraminal encroachment. L4-5 diffuse disc osteophyte complex with a superimposed far right lateral disc osteophyte protrusion. Bilateral hypertrophic facet arthropathy. The central canal is not well assessed due to artifact from the surgical hardware. Osteophyte ache ranging and facet arthropathy result in a symmetric right subarticular zone stenosis. Mild foraminal encroachment bilaterally. At L5-S1 there is diffuse disc osteophyte complex and there is advanced bilateral facet arthropathy. Findings in concert results in mild central canal stenosis. Bilateral subarticular zone stenosis and [id number] right sided foraminal stenosis. Assessment & Plan Assessment & Plan (1) Postlaminectomy syndrome: Code(s): M96.1 - Postlaminectomy syndrome, not elsewhere classified Category: Medical (2) Scoliosis (and kyphoscoliosis), idiopathic: Code(s): M41.20 - Other idiopathic scoliosis, site unspecified Category: Medical (3) Lumbar radiculopathy: Code(s): M54.16 - Radiculopathy, lumbar region Category: Medical (4) Chronic pain syndrome: Code(s): G89.4 - Chronic pain syndrome Category: Medical (5) Postlaminectomy syndrome, cervical: Code(s): M96.1 - Postlaminectomy syndrome, not elsewhere classified Category: Medical (6) Right knee pain: Code(s): M25.561 - Pain in right knee Category: Medical (7) Osteoarthritis of right knee: Code(s): M17.11 - Unilateral primary osteoarthritis, right knee Category: Medical (8) Failed back syndrome, lumbar: Code(s): M96.1 - Postlaminectomy syndrome, not elsewhere classified Category: Medical Plan Prolonged and very detailed discussion was held again today with the patient and her daughter. The patient admits pain in multiple segments of the lumbar spine. She is more focus now on the cervical spine however she mentioned lower back pain as well. Unfortunately intrathecal pain pump works only at the segment were tip of the catheter is inserted. She is reluctant to accept neuromodulation. She is willing to become a member of chronic opioid program here. However considering her advanced age and mobility limitations I think it would be safer for this patient to be under care of geriatric physician and receive opioid medications possibly in that office as well as proper observation for possible cognitive decline. Unfortunately her primary care physician goes as career development associate physician and no longer accepts any insurance. Therefore she no longer is receiving oxycodone 5 mg t.i.d. and she is interested in some opioid prescription medications. Orders: Referrals Geriatrics Referral G89.4 - Chronic pain syndrome, M17.11 - Unilateral primary osteoarthritis, right knee, M25.561 - Pain in right knee, M41.20 - Other idiopathic scoliosis, site unspecified, M54.16 - Radiculopathy, lumbar region, M96.1 - Postlaminectomy syndrome, not elsewhere classified Patient Instructions: I here by testify that I spent 30 minutes in conversation with this patient as well as planning her care and organizing this note. Coding Level of Care Code Est Pt Level 4 (31541) Diagnoses Postlaminectomy syndrome M96.1 Scoliosis (and kyphoscoliosis), idiopathic M41.20 Lumbar radiculopathy M54.16 Chronic pain syndrome G89.4 Postlaminectomy syndrome, cervical M96.1 Right knee pain M25.561 Osteoarthritis of right knee M17.11 Failed back syndrome, lumbar M96.1
[2023-12-09 09:14] VITALS: BP 130/72; PULSE 86; RESP 14; O2SAT 94; BMI 36.6
== END 2023-12-09 09:47 | disposition home or self-care (01) ==
PROVIDERS: PCP Registered Nurse; Visit Provider Anesthesiology
DX: M96.1 Postlaminectomy syndrome, not elsewhere classified (principal); M41.20 Other idiopathic scoliosis, site unspecified; M54.16 Radiculopathy, lumbar region; G89.4 Chronic pain syndrome; M25.561 Pain in right knee; M17.11 Unilateral primary osteoarthritis, right knee
CPT/HCPCS: 99214

== ENCOUNTER → 2023-12-09 09:05 | Outpatient (BNVA) | payer MEDICARE, OTHER, SELFPAY | PROVIDERS: PCP Registered Nurse; Visit Provider Anesthesiology | DX: M96.1 Postlaminectomy syndrome, not elsewhere classified (principal); M41.20 Other idiopathic scoliosis, site unspecified; M54.16 Radiculopathy, lumbar region; M25.561 Pain in right knee; M17.11 Unilateral primary osteoarthritis, right knee; G89.4 Chronic pain syndrome | CPT/HCPCS: 99212 ==

== ENCOUNTER 2023-12-09 10:06 | Outpatient (AMB) | payer MEDICARE, OTHER, SELFPAY ==
[2023-12-09 10:11] VITALS: BP 132/70; PULSE 82; TEMP 36.6; O2SAT 96; BMI 36.6
--- NOTE | 2023-12-09 10:11 | MHC.OFFWIV ---
Intake Vital Signs 12/09/23 10:11 Height 4 ft 11 in Weight 181 lb BMI 36.6 BP 132/70 Blood Pressure Location Rt brachial Position Sitting Pulse 82 Pulse Source Pulse Oximeter Temp 97.9 F Temp Source Temporal Artery Scan Pulse Oximetry (%) 96 Oxygen Delivery Method Room Air Intake Visit Reasons: EST/rib pain from coughing (lobby) Intake Note: pt is here for rib pain due to coughing Patient Tobacco Use Status: Never used Tobacco Allergies No Known Allergies [No Known Allergies*] Allergy (Verified 12/09/23 10:11) Do you need a note to return to daycare/school/sports/work: No HPI HPI Comments History of Present Illness Details Patient presents to the walk in for 5 days non-productive cough, sinus congestion. Denies wheezing, ear pain, sore throat, headache, fatigue, bodyaches. No known sick contacts Denies fever, chest pain, shortness of breath, palpitations, syncope, weakness PFSH Medical History Back pain with history of spinal surgery Bleeding hemorrhoid Chronic back pain HTN (hypertension) Joint pain Social History Patient Tobacco Use Status: Never used Tobacco Review of Systems Const All systems reviewed & are unremarkable except as noted in HPI and below Physical Exam Vital Signs: Last Vital Signs Temp 97.9 F 12/09/23 10:11 Pulse 82 12/09/23 10:11 BP 132/70 12/09/23 10:11 Pulse Ox 96 12/09/23 10:11 Oxygen Delivery Method Room Air 12/09/23 10:11 BMI result Body Mass Index 36.6 General: awake, alert, oriented. Answers questions appropriately. Fully engaged in examination. Skin: warm, dry, intact HEENT: TMs intact bilaterally, without redness. Posterior pharynx without erythema or exudate. Sclera without icterus or injection. Cardiac: External chest normal in appearance. Respiratory: +hoarse cough. LSCTAB. Abdomen: without gross distension. Neurological: Oriented to person, place, time and situation. Thought process intact. Psychiatric: Appropriate mood and affect. Good judgment and insight. Assessment & Plan Assessment & Plan (1) Bronchitis: Code(s): J40 - Bronchitis, not specified as acute or chronic Plan Z-Myles as directed Benzonatate 100mg po bid as needed Rest, drink plenty of fluids, tylenol or motrin as needed. Recommend taking OTC nasal decongestants to assist with sinus congestion and postnasal drip. Patient advised to discuss with pharmacist heart healthy options. Follow up with pcp or in clinic for any new or worsening symptoms. Go to ER for shortness of breath, chest pain, palpitations, weakness, dizziness. Medications: New azithromycin For 250 mg dose pack: take 500 mg today (day 1), then 250 mg for 4 days (days 2-5) PO 6 tabs 0RF benzonatate 100 mg PO BID PRN 20 caps 0RF cough Coding Level of Care Code Est Pt Level 3 (34766) Diagnoses Bronchitis J40
--- OUTSIDE RECORDS SUMMARY | 2023-12-09 10:24 | XMS_ITS | Patient Health Record ---
Author Organization [facility] Address [address], [place] [id number] Care Team Providers Care Executive Secretary Name Role Phone HARRY SHANDRA Primary Care Provider Shelby Johnson Unavailable [phone] ALLERGIES Allergen (clinical drug ingredient) Drug/Non Drug Allergy documented on EMR Reaction Allergy Type Onset Date Status Dust Mites Unknown Allergy Active REASON FOR REFERRAL Reason please refer to [facility] pain clinic Diagnosis 1 Sacroiliitis, not el sewhere classified (M46.1) Referral Organization [facility] Referring Provider First Name SHANDRA Referring Provider Last Name MILLRIFT Referring Provider Speciality Nurse Bogdan arzate Referred Organization [facility] Referred Address [address] [facility] [place] [id number], Referred Provider Specialty Pain Medicin e General Notes ALPESH MATA 04/29 11:04:46 AM >Referral, OV Note, [facility] Spine note, [facility] CT Scan and insurance information all faxed to [facility] [phone]. Referral Priority Routine Reason please refer to [facility] for hearing eval thank you! Diagnosis 1 Hearing loss of righ t ear, unspecified hearing loss type (H91.91) Referral Organization [facility] Referring Provider First Name SHANDRA Referring Provider Last Name MILLRIFT Referring Provider Speciality Nurse Bogdan arzate Referred Organization [facility] Referred Address [address] [facility] [place],[id number] Referred Provider Specialty Audiologists General Notes ADAL VARELA 1 09/23/2022 09:11:08 AM >referral, note, demographics and insurance information faxed to [facility] centralized scheduling [phone] Referral Priority Routine Reason Please refer to Pain Management at [address] [place] [address] (Radiofrequency for neck) , Diagnosis 1 Bilateral low back p ain, unspecified chronicity, unspecified whether sciatica present (M54.50) Diagnosis 2 Osteoarthritis of hi p, unspecified (M16.9) Diagnosis 3 Osteoarthritis of marco th knees, 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) [facility] Referring Provider First Name SHANDRA Referring Provider Last Name HARRY Referring Provider Speciality Nurse Bogdan garciaioner Ref[facility] Referred Address [address] [place] [id number], Referred Provider Specialty Pain Medicin e General Notes ADAL VARELA 0 09/03/2023 10:05:37 AM >demographics, referral and office note faxed to [facility] [phone], ADAL VARELA 09/05/2023 11:02:09 AM >demographics, updated referral and office note faxed to pain management at [address] [place] [address] Referral Priority Routine MEDICATIONS Medication SIG (Take, Route, Frequency, Duration) Notes Start Date End Date Status Fluticasone Propionate 50 MCG/ACT 1 spray in each nostril Nasally Once a day Active traZODone HCl 100 MG TAKE 1 TABLET BY MOUTH AT BEDTIME NEEDED FOR SLEEP Orally Once a day for 90 days Active Triamcinolone Acetonide 0.1 % 1 application Externally Twice a day for 14 days 12/03/2023 Active amLODIPine Besylate 10 MG TAKE 1 TABLET BY MOUTH EVERY DAY IN THE AFTERNOON Orally Once a day Active Gemtesa 75 MG 1 tablet Orally Once a day Active Atorvastatin Calcium 10 MG TAKE 1 TABLET BY MOUTH EVERY DAY IN THE EVENING for 90 Active Mirtazapine 7.5 MG 2 tablets at bedtime Orally Once a day for 90 days 02/26/2023 Not-Taking Losartan Potassium 100 MG TAKE 1 TABLET BY MOUTH EVERY DAY IN THE EVENING Active Vitamin D3 Super Strength 50 MCG (2000 UT) 1 daily Oral Vitamin D3 50 mcg (2,000 unit) capsule 04/11/2022 Active Breo Ellipta 200-25 MCG/ACT INHALE 1 PUFF BY MOUTH EVERY DAY Inhalation Once a day for 90 days Active oxyCODONE HCl 5 MG 1 tablet as needed Orally three times a day for 30 days 11/29/2023 Active Estradiol 0.1 MG/GM Vaginal 08/10/2022 Active Nystatin 699083 UNIT/GM apply a light dusting to the affected area twice daily for 14 days External Twice a day for 30 days nystatin 100,000 unit/gram topical powder 07/11/2022 Active Pantoprazole Sodium 40 MG 1 daily Oral pantoprazole 40 mg tablet,delayed release 04/11/2022 Active Zoloft 50 MG 1 tablet Oral Once a day for 90 days Zoloft 50 mg tablet 07/11/2022 Active Meloxicam 15 MG TAKE 1 TABLET BY MOUTH EVERY DAY NEEDED for 90 Active SOCIAL HISTORY Sex Assigned At : Social History Observation Description Sex Assigned At Unknown PROBLEMS Problem Type ICD Code Onset Dates Problem Status W/U Status Risk SNOMED Code Notes Problem Essential (primary) hypertension (I10) Active confirmed Essential hypertension (44984493) Problem Moderate persistent asthma, uncomplicated (J45.40) Active confirmed Uncomplicated moderate persistent asthma (871296532) Problem Osteoarthritis of hip, unspecified (M16.9) Active confirmed Osteoarthritis of hip (527449864) Problem Sacroiliitis, not elsewhere classified (M46.1) Active confirmed Solitary sacroiliitis (717485618) Problem Overactive bladder (N32.81) Active confirmed Overactive bladder (033901216) Problem 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) Active confirmed Postmenopa usal atrophic vaginitis (32728672) VITAL SIGNS Heart Rate 85 /min 12/03/2023 Temperature 97.3 degrees Fahrenheit 01/04/2023 Height-cm 149.86 cm 12/03/2023 Oximetry 96 % 12/03/2023 Blood pressure diastolic 62 mm Hg 12/03/2023 Weight-kg 83.19 kg 12/03/2023 Height 59 in 12/03/2023 Blood pressure systolic 148 mm Hg 12/03/2023 Weight 183.4 lbs 12/03/2023 BMI 37.04 kg/m2 12/03/2023 Encounters Encounter Location Date Provider Diagnosis [facility], [address] [place] [id number] 12/12/2022 SHANDRA MCDONALD [facility] [address] [id number] 02/04/2023 [facility], [address] [id number] 04/12/2023 [facility], [address] [id number] 05/20/2023 [facility], [address] [id number] 08/06/2023 [facility], [address] [id number] 01/04/2023 [facility] Essential (primary) hypertension I10 ; Overactive bladder N32.81 ; Sacroiliitis, not elsewhere classified M46.1 and Bilateral low back pain, unspecified chronicity, unspecified whether sciatica present M54.[address] [id number] 02/26/2023 [facility] Actinic keratoses L57.0 and Depression, unspecified F32.A [address] [id number] 03/20/2023 [facility] Depression, unspecified F32.A and Actinic keratosis L57.[address] [id number] 04/24/2023 [facility] Sacroiliitis, not elsewhere classified M46.1 and Bilateral low back pain, unspecified chronicity, unspecified whether sciatica present M54.[address] [id number] 06/12/2023 [facility] Essential (primary) hypertension I10 ; Moderate persistent asthma, uncomplicated J45.40 ; Sacroiliitis, not elsewhere classified M46.1 ; Depression, unspecified F32.A and Actinic keratoses L57.[address] [id number] 08/27/2023 [facility] Sacroiliitis, not elsewhere classified M46.1 ; Moderate persistent asthma, uncomplicated J45.40 ; Overactive bladder N32.81 ; Essential (primary) hypertension I10 ; Other localized visual field defect, unspecified eye H53.459 and Depression, unspecified F32.A [address] [id number] 10/29/2023 SHANDRA HARRY Cervicalgia M54.2 ; Sacroiliitis, not elsewhere classified M46.1 ; Overactive bladder N32.81 and Moderate persistent asthma, uncomplicated J45.40 [facility] [address], [place] [phone] 12/03/2023 Shelby Johnson Skin rash R21 [address] [id number] 01/11/2023 SHANDRA MCDONALD [address] [id number] 02/02/2023 SHANDRA MCDONALD Essential (primary) hypertension I10 [address] [id number] 03/04/[address] [id number] 03/27/2023 SHANDRA HARRY Actinic keratoses L57.[address] [id number] 04/26/2023 SHANDRA HARRY Sacroiliitis, not elsewhere classified M46.[address] [id number] 06/05/2023 SHANDRAREI MCDONALD Sacroiliitis, not elsewhere classified M46.[address] [id number] 06/25/2023 SHANDRA HARRY Hearing loss of righ t ear, unspecified hearing loss type H91.[address] [id number] 07/12/2023 SHANDRA MCDONALD [address] [id number] 08/07/2023 SHANDRA HARRY Sacroiliitis, not elsewhere classified M46.[address] [id number] 09/02/2023 SHANDRA HARRY Bilateral low back pain, unspecified chronicity, unspecified whether sciatica present M54.50 ; Osteoarthritis of hip, unspecified M16.9 and Osteoarthritis of both knees, unspecified osteoarthritis type M17.[address] [id number] 09/17/2023 SHANDRA [facility], [address] [id number] 10/11/2023 SHANDRA MCDONALD [address] [id number] 10/21/2023 SHANDRA MCDONALD Sacroiliitis, not elsewhere classified M46.[address] [id number] 11/29/2023 SHANDRA MCDONALD Sacroiliitis, not elsewhere classified M46.1 ASSESSMENTS Encounter Date Diagnosis Assessment Notes Treatment Notes Treatment Clinical Notes 02/02/2023 Essential (primary) hypertension (ICD-10 - I10) 02/26/2023 Depression, unspecified (ICD-10 - F32.A) 02/26/2023 Actinic keratoses (ICD-10 - L57.0) 03/20/2023 Actinic keratosis (ICD-10 - L57.0) CRYO THERAPY: area(s) to be treated cleansed, liquid nitrogen was applied using a sponge tipped applicator directly to the lesions (3). A series of three applications was used on each lesion using freeze/thaw technique. Pt tolerated the procedure well. Post procedural instructions were given to pt verbally. Follow up as clinically indicated. Pt is able to verbally demonstrate return instructions with an excellent understanding of what to expect and when to seek to follow up. 03/20/2023 Depression, unspecified (ICD-10 - F32.A) doing better on mirtazapine, sleeping is better. Will continue current plan 03/27/2023 Actinic keratoses (ICD-10 - L57.0) 04/24/2023 Sacroiliitis, not elsewhere classified (ICD-10 - M46.1) 04/24/2023 Bilateral low back pain, unspecified chronicity, unspecified whether sciatica present (ICD-10 - M54.50) 04/26/2023 Sacroiliitis, not elsewhere classified (ICD-10 - M46.1) 06/05/2023 Sacroiliitis, not elsewhere classified (ICD-10 - M46.1) 06/12/2023 Essential (primary) hypertension (ICD-10 - I10) Condition is stable and well controlled on current treatment. No changes made, medication(s) refilled as indicated 06/12/2023 Moderate persistent asthma, uncomplicated (ICD-10 - J45.40) Condition is stable and well controlled on current treatment. No changes made, medication(s) refilled as indicated 01/04/2023 Essential (primary) hypertension (ICD-10 - I10) Recommend taking pressures at home daily and f/u with record in 4 weeks 01/04/2023 Overactive bladder (ICD-10 - N32.81) Wonderful since start gemtesa 75 mg but she is splitting it in half d/t cost 06/25/2023 Hearing loss of right ear, unspecified hearing loss type (ICD-10 - H91.91) Pt reports having difficulty with her hearing aids. Is due for hearing evaluation. Referral made to [facility] speech and hearing for evaluation 08/07/2023 Sacroiliitis, not elsewhere classified (ICD-10 - M46.1) 08/27/2023 Moderate persistent asthma, uncomplicated (ICD-10 - J45.40) Just getting over bronchitis, was seen in [facility]-prescribed ABX, she is feeling much better and exam is reassuring 08/27/2023 Sacroiliitis, not elsewhere classified (ICD-10 - M46.1) Doing ok on current regimen 09/02/2023 Osteoarthritis of hip, unspecified (ICD-10 - M16.9) 09/02/2023 Bilateral low back pain, unspecified chronicity, unspecified whether sciatica present (ICD-10 - M54.50) 10/21/2023 Sacroiliitis, not elsewhere classified (ICD-10 - M46.1) 10/29/2023 Cervicalgia (ICD-10 - M54.2) Will be seeing PSS next week, did see pain management and options were not appealing to her. 11/29/2023 Sacroiliitis, not elsewhere classified (ICD-10 - M46.1) 12/03/2023 Skin rash (ICD-10 - R21) Encouraged to rinse mouth and face after using Breo Rash does not appear fungal- more like contact dermatitis No bumps noted Area red- no swollen- only area affected Please notify office if rash worsens, spreads, or is not improving over the next 72 hours 10/29/2023 Sacroiliitis, not elsewhere classified (ICD-10 - M46.1) Condition is stable and well controlled on current treatment. No changes made, medication(s) refilled as indicated 09/02/2023 Osteoarthritis of both knees, unspecified osteoarthritis type (ICD-10 - M17.0) 08/27/2023 Overactive bladder (ICD-10 - N32.81) Condition is stable and well controlled on current treatment. No changes made, medication(s) refilled as indicated 01/04/2023 Sacroiliitis, not elsewhere classified (ICD-10 - M46.1) Seeing [facility]SS[facility], will be having MRI 06/12/2023 Sacroiliitis, not elsewhere classified (ICD-10 - M46.1) Condition is stable and well controlled on current treatment. No changes made, medication(s) refilled as indicated 06/12/2023 Depression, unspecified (ICD-10 - F32.A) Condition is stable and well controlled on current treatment. No changes made, medication(s) refilled as indicated 01/04/2023 Bilateral low back pain, unspecified chronicity, unspecified whether sciatica present (ICD-10 - M54.50) 08/27/2023 Essential (primary) hypertension (ICD-10 - I10) 10/29/2023 Overactive bladder (ICD-10 - N32.81) Condition is stable and well controlled on current treatment. No changes made, medication(s) refilled as indicated 10/29/2023 Moderate persistent asthma, uncomplicated (ICD-10 - J45.40) Condition is stable and well controlled on current treatment. No changes made, medication(s) refilled as indicated 08/27/2023 Other localized visual field defect, unspecified eye (ICD-10 - H53.459) Recently saw opthamology-failed her peripheral vision test on left only, was referred to specialist 06/12/2023 Actinic keratoses (ICD-10 - L57.0) CRYO THERAPY: area(s) to be treated cleansed, liquid nitrogen was applied using a sponge tipped applicator directly to the lesions (1). A series of three applications was used on each lesion using freeze/thaw technique. Pt tolerated the procedure well. Post procedural instructions were given to pt verbally. Follow up as clinically indicated. Pt is able to verbally demonstrate return instructions with an excellent understanding of what to expect and when to seek to follow up. 08/27/2023 Depression, unspecified (ICD-10 - F32.A) 01/04/2023 Other Total time spen t with patient 32 minutes which includes face to face visit, education and coordination of care. 03/20/2023 Other Total time spen t with patient 32 minutes which includes face to face visit, education and coordination of care. 06/12/2023 Other Total time spen t with patient 20 minutes which includes face to face visit, education and coordination of care. 10/29/2023 Other Total time spen t with patient 20 minutes which includes face to face visit, education and coordination of care. 12/03/2023 Other Total time spen t with patient 17 minutes which includes face to face visit, education and coordination of care. PLAN OF TREATMENT Next Appt Details Provider Name:SHANDRA DARLING Vega, 12/24/2023 02:30:00 PM, [address] [place], [place] [address], [id number], Insurance Providers Payer Name Payer Address Payer Phone Subscriber Number Group Number Insured Name Patient Relationship to Insured Coverage Start Date Coverage End Date Medicare [address] [place] [address] [phone] [id number] KAY COLLINS Self - patient is the insured [facility] [address] BRINDA THAKKAR [phone] [id number] KAY COLLINS Self - patient is the insured MEDICAL (GENERAL) HISTORY Medical History History ICD Code Wears glasses/contacts Hearing aids GERD/Heartburn Anxiety Incontinence Arthritis Depression Bruise easily PND - Sinus Infections Surgical History Surgery Date(Month/Year) Knee surgery - Lt Lt. Shoulder surgery Rt. Shoulder surgery x 2 Neck surgery x 2 Back surgery x 2 Appendectomy Bi-lateral Carpal Tunnel surgery
--- OUTSIDE RECORDS SUMMARY | 2023-12-09 10:25 | XMS_ITS | Continuity of Care Document ---
Author Organization [facility] Address [address] [address]- Care Team Providers Care Grainer Machine Name Role Phone Kane JUNG, Ling Parada Primary Care Physician Encounter [facility] Date(s): 06/14/21 - 06/21/21 [facility] [address] [address]- Attending Physician: Kane JUNG, Ling Parada Admitting Physician: Kane JUNG, Ling Parada Referring Physician: Kane JUNG, Ling Parada Allergies, Adverse Reactions, Alerts Substance Reaction Severity Status NKA Active Medications Calcium Carbonate = 600 mg, By Mouth, Daily, 0 Refills, Maintenance, 04/05/16 15:52:39 Start Date: 04/05/16 Status: Ordered Colace sodium 100 mg oral capsule 200 mg, 2, capsule, By Mouth, Daily, PRN, # 20 capsule, Refills 0, Maintenance, for constipation, 04/05/16 15:53:16 Start Date: 04/05/16 Status: Ordered cyclobenzaprine 10 mg oral tablet 10 mg, 1, tablet, By Mouth, 3 times a day, PRN, # 30 tablet, Refills 0, Tot. Refills 0, Maintenance, for spasm, 04/05/16 18:13:20, Print Requisition Start Date: 04/05/16 Status: Ordered fentanyl 12 mcg/hr transdermal film, extended release 1 patch, Topically, Every 72 hours, 0 Refills, Maintenance, 04/05/16 16:52:13, Patch Start Date: 04/05/16 Status: Ordered fentaNYL 25 mcg/hr transdermal film, extended release 1 patch, Topically, Every 72 hours, # 1 patch, 0 Refills, Maintenance, 04/05/16 18:11:08, Patch Start Date: 04/05/16 Stop Date: 04/08/16 Status: Ordered fentaNYL 25 mcg/hr transdermal film, extended release 1 patch, Topically, Every 72 hours, # 1 patch, 0 Refills, Maintenance, 04/06/16 10:17:28, Patch Start Date: 04/06/16 Status: Ordered Flonase 50 mcg/inh nasal spray 2 sprays, Nares, Both, Daily in AM, 0 Refills, Maintenance, 04/05/16 15:53:47, [place] Start Date: 04/05/16 Status: Ordered ipratropium nasal 42 mcg/inh spray 2 sprays, Nares, Both, 2 times a day, # 15 mL, 0 Refills, Maintenance, 04/05/16 15:54:06, [place] Start Date: 04/05/16 Status: Ordered Lipitor 10 mg oral tablet 1 tablet = 10 mg, By Mouth, Daily, # 30 tablet, 0 Refills, Maintenance Start Date: 04/05/16 Status: Ordered losartan 100 mg oral tablet 1 tablet = 100 mg, By Mouth, Daily, # 30 tablet, 0 Refills, Maintenance, 04/05/16 15:55:04, Tablet Start Date: 04/05/16 Status: Ordered meloxicam 15 mg oral tablet 1 tablet = 15 mg, By Mouth, Daily, # 30 tablet, 0 Refills, Maintenance, 04/05/16 15:58:58, Tablet Start Date: 04/05/16 Status: Ordered metoprolol 25 mg oral tablet, extended release 25 mg, 1, tablet, By Mouth, Daily, # 30 tablet, Refills 0, Maintenance, 04/05/16 15:54:51 Start Date: 04/05/16 Status: Ordered Norvasc Tablet 10, mg, By Mouth, Daily, 0, 0, 05/08/07 1:34:37, Print LEXI Number, [id number], Constant Indicator Start Date: 05/08/07 Status: Ordered ProAir HFA 90 mcg/inh inhalation aerosol with adapter 2, puffs, Inhalation, Every 6 hours, PRN, # 8.5 Gm, Refills 0, Maintenance, 04/05/16 15:53:07, Aerosol Start Date: 04/05/16 Status: Ordered Protonix 40 mg oral delayed release tablet 40 mg, 1, tablet, By Mouth, Daily, # 30 tablet, Refills 0, Maintenance, 04/05/16 15:53:28 Start Date: 04/05/16 Status: Ordered tiZANidine 2 mg oral capsule 2 capsule = 4 mg, By Mouth, Every 8 hours, # 180 capsule, 0 Refills, Maintenance, 04/05/16 16:54:39, Capsule Start Date: 04/05/16 Status: Ordered traMADol 50 mg oral tablet See Instructions, PRN as needed for pain, 1-2 tablet By Mouth Every 4-6 hours, 0 Refills, Maintenance, 04/05/16 15:58:46, Tablet Start Date: 04/05/16 Status: Ordered Trazodone Tablet 100 mg, By Mouth, Daily at bedtime, Refills 0, Tot. Refills 0, 05/08/07 1:35:28 Start Date: 05/08/07 Status: Ordered Tylenol Caplet Extra Strength = 1,000 mg, By Mouth, Every 6 hours, PRN as needed for pain, 0 Refills, Maintenance, 04/05/16 15:54:34 Start Date: 04/05/16 Status: Ordered Vitamin D3 = 2,000 International_Units, By Mouth, Daily, 0 Refills, Maintenance, 04/05/16 15:59:14 Start Date: 04/05/16 Status: Ordered Walker See Instructions, # 1 each, Maintenance, Use daily to aid with back pain, 04/05/16 18:14:08, Compound Start Date: 04/05/16 Status: Ordered Zoloft 50 mg oral tablet 50, mg, 1, tablet, By Mouth, Daily, 0, 0, 05/08/07 1:37:20, Print LEXI Number, [id number], Constant Indicator Start Date: 05/08/07 Status: Ordered
--- OUTSIDE RECORDS SUMMARY | 2023-12-09 10:25 | XMS_ITS | Patient Health Record ---
Author Organization [facility] Address [address] [place] [address] Care Team Providers Care Blueberry Grower Name Role Phone Ling Middleton DNP Primary Care Provider Elbert Jose Jr Unavailable [phone] ALLERGIES Allergen (clinical drug ingredient) Drug/Non Drug Allergy documented on EMR Reaction Allergy Type Onset Date Status chlorpheniramine Allergy Unknown Drug Allergy Active REASON FOR REFERRAL No Information MEDICATIONS Medication SIG (Take, Route, Frequency, Duration) Notes Start Date End Date Status Pantoprazole Sodium 40 MG TAKE 1 TABLET BY MOUTH EVERY DAY for 90 days Active Losartan Potassium 100 MG 1 tablet Orall y Once a day Active Sertraline HCl 50 MG 1 tablet Orally Onc e a day for 30 day(s) Active Atorvastatin Calcium 10 MG 1 tablet Oral ly Once a day Active Breo Ellipta Active Albuterol Sulfate HFA Active amLODIPine Besylate 10 MG 1 tablet Orall y Once a day Active Tylenol 8 Hour Arthritis Pain Active Claritin 10 MG 1 tablet Orally Once a day for 30 day(s) Active Ipratropium Catharpin 0.06 % 2 sprays in e ach nostril Nasally Three times a day for 4 day(s) Active Amoxicillin 500 MG 1 capsule Orally NEEDED FOR DENTIST Active Calcium 500 MG 1 tablet Orally Once a day Active Tramadol & Dietary Manage Prod Active Vitamin D3 Ultra Potency 53552 UNIT 1 tablet Orally as directed Active IMMUNIZATIONS Vaccine Route Administration Date Status Comme nts Influenza Unknown 03/29/2016 Administered Influenza Unknown 02/29/2020 Administered Influenza Unknown 05/16/2022 Administered SOCIAL HISTORY Sex Assigned At : Social History Observation Description Sex Assigned At Unknown Alcohol Screen Question Answer Notes Did you have a drink contain ing alcohol in the past year? Yes How often did you have a dri nk containing alcohol in the past year? 2 to 3 times a week (3 points) How many drinks did you have on a typical day when you were drinking in the past year? 1 or 2 drinks (0 point) How often did you have 6 or more drinks on one occasion in the past year? Never (0 point) Points 3 Interpretation Positive PROBLEMS Problem Type ICD Code Onset Dates Problem Status W/U Status Risk SNOMED Code Notes Problem Rectal bleeding (K62.5) Active confirmed 53445452 Problem Gastro-esophagea l reflux disease without esophagitis (K21.9) Active confirmed 669409378 Problem Cough (R05) Active confirmed 75153318 Problem Urinary incontinence, unspecified type (R32) Active confirmed [id number] Encounters Encounter Location Date Provider Diagnosis [facility] [address] [place] [address] 03/26/2023 Elbert Reeves Jr PLAN OF TREATMENT Pending Test Test Name Order Date XR GI SERIES 07/14/2015 Insurance Providers Payer Name Payer Address Payer Phone Subscriber Number Group Number Insured Name Patient Relationship to Insured Coverage Start Date Coverage End Date MEDICARE OF [place] [address] [place] [address] [id number] ANDKAY AVILES Self - patient is the insured [employer] [address] BRINDA THAKKAR [phone] [id number] KAY COLLINS Self - patient is the insured MEDICAL (GENERAL) HISTORY Medical History History ICD Code EGD/colonoscopy 01/03/2006. No evidence of Morse's esophagus. Hyperplastic colon polyp. Seasonal allergic rhinitis hypertension hypercholesterolemia scoliosis arthritis depression Surgical History Surgery Date(Month/Year) Vocal cord polyp 2006 Multiple back and neck surgeries rotator cuff surgery both knee replacement left
--- OUTSIDE RECORDS SUMMARY | 2023-12-09 10:25 | XMS_ITS | Continuity of Care Document ---
Author Organization [facility] [employer] [facility] Address [address] [place] [address], 4t [place] [address]- Care Team Providers Care Nitrocellulose Maker Name Role Phone Kane JUNG, Ling Parada Primary Care Phys[facility] [id number] Date(s): 08/30/22 - 12/01/22 [facility] [facility] [address] [facility], [address] [place], [place] [address] Attending Physician: Benita Walker MD Admitting Physician: Benita Walker MD Referring Physician: Kane JUNG, Ling Parada Allergies, Adverse Reactions, Alerts No Known Allergies Medications acetaminophen-oxycodone 300 mg-5 mg oral tablet 1 tablet, By Mouth, Every 6 hours, 0 Refills, Maintenance, 08/30/22 14:00:00 EST, Partial fill uponpatient request if the prescription is for a schedule II opioid drug. Start Date: 08/30/22 Status: Ordered Calcium Carbonate = 600 mg, By Mouth, Daily, 0 Refills, Maintenance, 04/05/16 15:52:39 Start Date: 04/05/16 Status: Ordered Colace sodium 100 mg oral capsule 200 mg, 2, capsule, By Mouth, Daily, PRN, # 20 capsule, Refills 0, Maintenance, for constipation, 04/05/16 15:53:16 Start Date: 04/05/16 Status: Ordered Flonase 50 mcg/inh nasal spray 2 sprays, Nares, Both, Daily in AM, 0 Refills, Maintenance, 04/05/16 15:53:47, [place] Start Date: 04/05/16 Status: Ordered ipratropium nasal 42 mcg/inh spray 2 sprays, Nares, Both, 2 times a day, # 15 mL, 0 Refills, Maintenance, 04/05/16 15:54:06, [place] Start Date: 04/05/16 Status: Ordered Lipitor 10 mg oral tablet 1 tablet = 10 mg, By Mouth, Daily, # 30 tablet, 0 Refills, Maintenance Start Date: 04/05/16 Status: Ordered losartan 100 mg oral tablet 1 tablet = 100 mg, By Mouth, Daily, # 30 tablet, 0 Refills, Maintenance, 04/05/16 15:55:04, Tablet Start Date: 04/05/16 Status: Ordered Norvasc Tablet 10, mg, By Mouth, Daily, 0, 0, 05/08/07 1:34:37, Print LEXI Number, [id number], Constant Indicator Start Date: 05/08/07 Status: Ordered ProAir HFA 90 mcg/inh inhalation aerosol with adapter 2, puffs, Inhalation, Every 6 hours, PRN, # 8.5 Gm, Refills 0, Maintenance, 04/05/16 15:53:07, [place] Start Date: 04/05/16 Status: Ordered Protonix 40 mg oral delayed release tablet 40 mg, 1, tablet, By Mouth, Daily, # 30 tablet, Refills 0, Maintenance, 04/05/16 15:53:28 Start Date: 04/05/16 Status: Ordered Trazodone Tablet 100 mg, By Mouth, Daily at bedtime, Refills 0, Tot. Refills 0, 05/08/07 1:35:28 Start Date: 05/08/07 Status: Ordered Tylenol Caplet Extra Strength = 1,000 mg, By Mouth, Every 6 hours, PRN as needed for pain, 0 Refills, Maintenance, 04/05/16 15:54:34 Start Date: 04/05/16 Status: Ordered vibegron 75 mg oral tablet 1 tablet = 75 mg, By Mouth, Daily, # 30 tablet, 11 Refills, Maintenance, 11/27/22 11:12:00 EDT, Tablet, [facility][id number], Partial fill upon patient request if the prescription is for a schedule II opioid drug., 149.86, cm, 11/27/22 10:53:00... Start Date: 11/27/22 Status: Ordered Vitamin D3 = 2,000 International_Units, By Mouth, Daily, 0 Refills, Maintenance, 04/05/16 15:59:14 Start Date: 04/05/16 Status: Ordered Walker See Instructions, # 1 each, Maintenance, Use daily to aid with back pain, 04/05/16 18:14:08, [place] Start Date: 04/05/16 Status: Ordered Zoloft 50 mg oral tablet 50, mg, 1, tablet, By Mouth, Daily, 0, 0, 05/08/07 1:37:20, Print LEXI Number, [id number], Constant Indicator Start Date: 05/08/07 Status: Ordered Problem List Condition Confirmation Course Effective Dates Status H ealth Status Informant Genuine stress incontinence Confirmed 07/01/18 Active Hyperlipidemia Confirmed 07/02/17 Active Insomnia Confirmed 07/02/17 Active Lumbar post-laminectomy syndrome Confirmed 05/26/20 Active Lumbosacral radiculopathy Confirmed 07/02/17 Active Mallet finger Confirmed 07/02/17 Active Mammographic calcification of breast Confirmed 07/02/17 Active Mixed anxiety and depressive disorder Confirmed 07/02/17 Active Neck pain Confirmed 07/02/17 Active Osteopenia Confirmed 07/02/17 Active Pain of left wrist Confirmed 07/02/17 Active Patient encounter status Confirmed 03/12/18 Active Restrictive lung disease Confirmed 01/08/22 Active Severe obesity (BMI 35.0-39.9) with comorbidity Confirmed Active Spinal stenosis of lumbar region Confirmed 07/02/17 Active Trochanteric bursitis of right hip Confirmed 12/05/20 Active Urinary incontinence Confirmed Active Social History Social History Type Response Smoking Status Former smoker, quit more than 30 days ago entered on: 08/30/22 Sex Patient Care team information Care Team Personnel Name: Kane JUNG, Ling Parada Position: [facility] Outreach Member Role: PCP Address: Address: [address] [place] [address]- Name: Momo Galvin RN Position: [facility] RN Member Role: Primary Care Nurse Care Team Related Persons Name: JD ABRAHAM Address: home [address] [place] [address]
--- OUTSIDE RECORDS SUMMARY | 2023-12-09 10:25 | XMS_ITS | Continuity of Care Document ---
Author Organization [facility] Address [address] [address]- Care Team Providers Care Validation Scientist Name Role Phone Kane JUNG, Ling Parada Primary Care Physician Encounter [facility] R [id number] Date(s): 06/14/21 - 07/14/21 [facility] [address] [address]- Attending Physician: Annie Hester Admitting Physician: AdmAnnie zeng Referring Physician: Admtr Ar8 Allergies, Adverse Reactions, Alerts Substance Reaction Severity [...] in AM, 0 Refills, Maintenance, 04/05/16 15:53:47, [place] Start Date: 04/05/16 Status: Ordered ipratropium nasal 42 mcg/inh spray 2 sprays, Nares, Both, 2 times a day, # 15 mL, 0 Refills, Maintenance, 04/05/16 15:54:06, [place] Start Date: 04/05/16 Status: Ordered Lipitor 10 [...] 0, 0, 05/08/07 1:34:37, Print LEXI Number, [id number], Constant Indicator Start Date: 05/08/07 Status: Ordered [...] 0, 0, 05/08/07 1:37:20, Print LEXI Number, [id number], Constant Indicator Start Date: 05/08/07 Status: Ordered
--- OUTSIDE RECORDS SUMMARY | 2023-12-09 10:25 | XMS_ITS | Continuity of Care Document ---
Author Organization [facility] Address [address], [address] [place] [address]- Care Team Providers Care Semiconductor Wafers Saw Operator Name Role Phone Kane JUNG, Ling Parada [id number]13[facility] - 12[facility]13/[facility] [address], [address] [place] [address]- Allergies, Adverse Reactions, Alerts No Known Allergies [...] in AM, 0 Refills, Maintenance, 04/05/16 15:53:47, [place] Start Date: 04/05/16 Status: Ordered ipratropium nasal 42 mcg/inh spray 2 sprays, Nares, Both, 2 times a day, # 15 mL, 0 Refills, Maintenance, 04/05/16 15:54:06, [place] Start Date: 04/05/16 Status: Ordered Lipitor 10 [...] 0, 0, 05/08/07 1:34:37, Print LEXI Number, [id number], Constant Indicator Start Date: 05/08/07 Status: Ordered [...] 11 Refills, Maintenance, 11/27/22 11:12:00 EDT, Tablet, [facility][id number], Partial fill upon patient request if the [...] 0, 0, 05/08/07 1:37:20, Print LEXI Number, [id number], Constant Indicator Start Date: 05/08/07 Status: Ordered [...] Personnel Name: Kane JUNG, Ling Parada Position: [facility] Outreach Member Role: PCP Address: Address: [address] [place] [address]- Name: Momo Galvin RN Position: [facility] RN Member Role: Primary Care Nurse Care Team Related Persons Name: JD ABRAHAM Address: home [address] [place] [address]
--- OUTSIDE RECORDS SUMMARY | 2023-12-09 10:25 | XMS_ITS | Continuity of Care Document ---
Author Organization [facility] Address [address] [place] [address]- Care Team Providers Care Naval Gunfire Spotter Name Role Phone Kane JUNG, Ling Parada Primary Care Physician Encounter [facility] Date(s): 10/30/22 - 11/29/22 [facility] [address] [place], [place] [address] Allergies, Adverse Reactions, Alerts No Known Allergies [...] in AM, 0 Refills, Maintenance, 04/05/16 15:53:47, [place] Start Date: 04/05/16 Status: Ordered ipratropium nasal 42 mcg/inh spray 2 sprays, Nares, Both, 2 times a day, # 15 mL, 0 Refills, Maintenance, 04/05/16 15:54:06, [place] Start Date: 04/05/16 Status: Ordered Lipitor 10 [...] 0, 0, 05/08/07 1:34:37, Print LEXI Number, [id number], Constant Indicator Start Date: 05/08/07 Status: Ordered [...] 11 Refills, Maintenance, 11/27/22 11:12:00 EDT, Tablet, [facility] #[id number], Partial fill upon patient request if the [...] 0, 0, 05/08/07 1:37:20, Print LEXI Number, [id number], Constant Indicator Start Date: 05/08/07 Status: Ordered [...] Personnel Name: Kane JUNG, Ling Parada Position: [facility] Outreach Member Role: PCP Address: Address: [address] [place] [address]- Name: Momo Galvin RN Position: [facility] RN Member Role: Primary Care Nurse Care Team Related Persons Name: JD ABRAHAM Address: home [address] [place] [address]
--- OUTSIDE RECORDS SUMMARY | 2023-12-09 10:25 | XMS_ITS | Continuity of Care Document ---
Author Organization [facility] [employer] [facility] Address [address], [address]t [place] [address]- Care Team Providers Care Instrument Mechanic Name Role Phone Kane JUNG, Ling Parada Primary [id number] Date[facility] 12/17/22 - 01/16/23 [facility] [address], [address]th [place] [address]- Allergies, Adverse Reactions, Alerts No Known Allergies [...] in AM, 0 Refills, Maintenance, 04/05/16 15:53:47, [place] Start Date: 04/05/16 Status: Ordered ipratropium nasal 42 mcg/inh spray 2 sprays, Nares, Both, 2 times a day, # 15 mL, 0 Refills, Maintenance, 04/05/16 15:54:06, [place] Start Date: 04/05/16 Status: Ordered Lipitor 10 [...] 0, 0, 05/08/07 1:34:37, Print LEXI Number, [id number], Constant Indicator Start Date: 05/08/07 Status: Ordered [...] 11 Refills, Maintenance, 11/27/22 11:12:00 EDT, Tablet, [facility] #[id number], Partial fill upon patient request if the [...] 0, 0, 05/08/07 1:37:20, Print LEXI Number, [id number], Constant Indicator Start Date: 05/08/07 Status: Ordered [...] Personnel Name: Kane JUNG, Ling Parada Position: [facility] Outreach Member Role: PCP Address: Address: [address] [place] [address]- Name: Momo Galvin RN Position: [facility] RN Member Role: Primary Care Nurse Care Team Related Persons Name: JD ABRAHAM Address: home [address] [place] [address]
--- OUTSIDE RECORDS SUMMARY | 2023-12-09 10:25 | XMS_ITS | Continuity of Care Document ---
Author Organization [facility] Address [address] [facility], 4t [place] [address]- Care Team Providers Care Information Technology Administrator Name Role Phone Kane JUNG, Ling Parada Primary Care Physician Encounter [facility] Date(s): 10/25/22 - 11/24/22 [facility] [place] [facility] [address], [address]th [place] [address]- Allergies, Adverse Reactions, Alerts No Known Allergies [...] Print Requisition Start Date: 04/05/16 Status: Ordered fentaNYL 25 mcg/hr transdermal film, extended release 1 patch, Topically, Every 72 hours, # 1 patch, 0 Refills, Maintenance, 04/06/16 10:17:28, [place] Start Date: 04/06/16 Status: Ordered Flonase 50 mcg/inh nasal spray 2 sprays, Nares, Both, Daily in AM, 0 Refills, Maintenance, 04/05/16 15:53:47, [place] Start Date: 04/05/16 Status: Ordered ipratropium nasal 42 mcg/inh spray 2 sprays, Nares, Both, 2 times a day, # 15 mL, 0 Refills, Maintenance, 04/05/16 15:54:06, [place] Start Date: 04/05/16 Status: Ordered Lipitor 10 [...] 0, 0, 05/08/07 1:34:37, Print LEXI Number, [id number], Constant Indicator Start Date: 05/08/07 Status: Ordered [...] mg, By Mouth, Daily, # 30 tablet, 6 Refills, Maintenance, 11/14/22 16:03:00 EDT, Tablet, [facility] #[id number], Partial fill upon patient request if the prescription is for a schedule II opioid drug., 149.86, cm, 08/30/22 13:21:00... Start Date: 11/14/22 Status: Ordered Vitamin D3 = 2,000 International_Units, By Mouth, Daily, 0 Refills, Maintenance, 04/05/16 15:59:14 Start Date: 04/05/16 Status: Ordered Walker See Instructions, # 1 each, Maintenance, Use daily to aid with back pain, 04/05/16 18:14:08, [place] Start Date: 04/05/16 Status: Ordered Zoloft 50 mg oral tablet 50, mg, 1, tablet, By Mouth, Daily, 0, 0, 05/08/07 1:37:20, Print LEXI Number, [id number], Constant Indicator Start Date: 05/08/07 Status: Ordered [...] 07/02/17 Active Neck pain Confirmed 07/02/17 Active Obese class II Confirmed Active Osteopenia Confirmed 07/02/17 Active Pain of left wrist Confirmed 07/02/17 Active Patient encounter status Confirmed 03/12/18 Active Restrictive lung disease Confirmed 01/08/22 Active Spinal stenosis of lumbar region Confirmed 07/02/17 Active Trochanteric bursitis of right hip Confirmed 12/05/20 Active Urinary incontinence Confirmed Active Social History Social History Type Response Smoking Status Former smoker, quit more than 30 days ago entered on: 08/30/22 Sex Patient Care team information Care Team Personnel Name: Kane BIOFUELS PROCESSING TECHNICIAN, Ling Parada Position: [facility] Outreach Member Role: PCP Address: Address: [address] [place] [address]- Name: Momo Galvin RN Position: [facility] RN Member Role: Primary Care Nurse Care Team Related Persons Name: JD ABRAHAM Address: [address] [address]
--- OUTSIDE RECORDS SUMMARY | 2023-12-09 10:25 | XMS_ITS | Continuity of Care Document ---
Author Organization [facility] Address [address] [facility], [address]t [place] [address]- Care Team Providers Care Pumping Supervisor Name Role Phone Kane JUNG, Ling Parada Primary [facility] Phys[facility] [id number] Date(s): 11/27/22 - 12/27/22 [facility]ionisio [facility] [address] [facility], [address] [place], [place] [address] Attending Physician: Annie Hester Admitting Physician: Annie Hester Referring Physician: AdmtrAnnie Allergies, Adverse Reactions, Alerts No Known Allergies [...] in AM, 0 Refills, Maintenance, 04/05/16 15:53:47, [place] Start Date: 04/05/16 Status: Ordered ipratropium nasal 42 mcg/inh spray 2 sprays, Nares, Both, 2 times a day, # 15 mL, 0 Refills, Maintenance, 04/05/16 15:54:06, [place] Start Date: 04/05/16 Status: Ordered Lipitor 10 [...] 0, 0, 05/08/07 1:34:37, Print LEXI Number, [id number], Constant Indicator Start Date: 05/08/07 Status: Ordered [...] 11 Refills, Maintenance, 11/27/22 11:12:00 EDT, Tablet, [facility] #[id number], Partial fill upon patient request if the [...] 0, 0, 05/08/07 1:37:20, Print LEXI Number, [id number], Constant Indicator Start Date: 05/08/07 Status: Ordered [...] Name: Kane JUNG, Ling Parada Position: [facility] Outreach Member Role: PCP Address: Address: [address] [place] [address]- Name: Momo Galvin RN Position: [facility] RN Member Role: Primary Care Nurse Care Team Related Persons Name: JD ABRAHAM Address: home [address] [place] [address]
== END 2023-12-09 11:28 | disposition home or self-care (01) ==
PROVIDERS: PCP Registered Nurse; Visit Provider Registered Nurse Emergency
DX: J40 Bronchitis, not specified as acute or chronic (principal)
CPT/HCPCS: 99213

== ENCOUNTER 2024-01-06 18:50 | Inpatient (IN) | payer MEDICARE, OTHER, SELFPAY ==
--- NOTE | ~2024-01-06 | XR_ITS ---
EXAMINATION: XR CHEST CLINICAL INFORMATION: Shortness of breath. COMPARISON: Chest radiograph 01/06/2024. TECHNIQUE: Frontal view of the chest was obtained. FINDINGS: Stable prominence of the cardiomediastinal silhouette. Increased interstitial markings with new focal hazy and linear airspace opacities projecting over the medial aspect of the right lower lung. No pleural effusion. No pneumothorax. No acute osseous findings. XR/XR chest 1V IMPRESSION: 1. Increased interstitial markings could reflect pulmonary edema or atypical infectious/inflammatory process. 2. New focal airspace densities in the right lower lobe that could represent subsegmental atelectasis, aspiration or consolidation. Recommend attention on follow-up.
--- NOTE | ~2024-01-06 | CT_ITS ---
EXAMINATION: CT ABDOMEN AND PELVIS WITH CONTRAST CLINICAL INFORMATION: Abdominal pain. COMPARISON: None available. TECHNIQUE: Multidetector volumetric images were obtained from the superior aspect of the liver through the pubic symphysis following administration 85 mL of Omnipaque 350 intravenous contrast. Sagittal and coronal reformatted images were obtained on the technologist's workstation. Oral contrast: No This CT examination was performed using dose optimization techniques as appropriate, variously including the following: *Automated exposure control *Adjustment of mA and/or kV according to patient size (this includes techniques or standardized protocols for targeted exams where dose is matched to indication/reason for exam; i.e. extremities or head) *Use of iterative reconstruction technique DLP: 703 mGy-cm FINDINGS: Motion slightly limits evaluation. LUNG BASES: The visualized lung bases are unremarkable. LIVER, GALLBLADDER, AND BILIARY TREE: The liver is normal in size, shape, and attenuation. No focal hepatic lesion or biliary ductal dilatation is present. The gallbladder is distended. No definite gallstones are seen. PANCREAS: There appears to be mild peripancreatic infiltrative change. SPLEEN: Unremarkable. ADRENAL GLANDS: Unremarkable. KIDNEYS AND URETERS: The kidneys are normal in location. There is a small area of diminished enhancement mid to upper pole right kidney covering an area of approximately 2.6 cm. There is no hydronephrosis. BLADDER: Unremarkable. GASTROINTESTINAL TRACT: There are diverticula of the descending and the sigmoid colon without evidence for acute diverticulitis. ABDOMINAL WALL: There is a small umbilical hernia containing fat. LYMPH NODES: Normal. VASCULAR: Unremarkable. PELVIC VISCERA: Unremarkable. OSSEOUS STRUCTURES: There is postoperative and degenerative change of the lumbar spine with curvature to the right. CT/CT abdomen pelvis w IV con IMPRESSION: 1. There appears to be mild peripancreatic infiltrative change. There is possibly related to motion versus mild/early pancreatitis. Correlation needed 2. There is a small area of diminished enhancement mid to upper pole right kidney. This could represent focal pyelonephritis versus complex cyst.. 3. The gallbladder is distended. No definite gallstones are seen. 4. There are diverticula of the descending and sigmoid colon without evidence for acute diverticulitis. Fleischner guidelines were followed.
--- NOTE | ~2024-01-06 | XR_ITS ---
EXAMINATION: XR CHEST CLINICAL INFORMATION: Weakness COMPARISON: Previous chest x-ray most recent February 2021 TECHNIQUE: 2 views of the chest were obtained. FINDINGS: Cardiac and mediastinal contours are stable. The lungs are clear. No pleural effusion or pneumothorax. Degenerative changes of the thoracic spine. Postsurgical changes to the upper lumbar spine. XR/XR chest 2V IMPRESSION: No evidence for acute disease in the chest.
--- NOTE | 2024-01-06 19:15 | ED.GENADULT ---
[facility] - General Adult General Chief complaint: Chest Pain Stated complaint: not feeling well, lethargic, excessive fatigue Time Seen by Provider: 01/06/24 20:56 Source: patient and family History of Present Illness ED Provider: Dr Galloway HPI narrative: 88-year-old female with presentation for generalized weakness and lethargy, reports some nausea, had flu 3 weeks ago, denies any urinary symptoms, has only had an appendectomy but also reports she just recently had a bowel movement, is on chronic oxycodone but in the triage note and reports chest pain 04/07 but patient did not endorse this symptom to me. Related Data Home Medications ?Medication ?Instructions ?Recorded ?Confirmed albuterol sulfate 90 mcg/actuation 2 puff PO Q6H PRN wheezing 03/18/21 aerosol inhaler amlodipine 10 mg tablet 10 mg PO DAILY 03/18/21 atorvastatin 10 mg tablet 10 mg PO DAILY 03/18/21 fluticasone propionate 50 1 spray intranasal DAILY 03/18/21 mcg/actuation nasal spray,suspension losartan 100 mg tablet 100 mg PO DAILY 03/18/21 pantoprazole 40 mg tablet,delayed 40 mg PO DAILY 03/18/21 release sertraline 50 mg tablet 50 mg PO DAILY 03/18/21 trazodone 100 mg tablet 100 mg PO BEDTIME 03/18/21 meloxicam 15 mg tablet 15 mg PO DAILY 12/09/23 oxycodone 5 mg tablet 5 mg PO TID PRN 12/09/23 vibegron 75 mg tablet (Gemtesa) 75 mg PO DAILY 12/09/23 Previous Rx's ?Medication ?Instructions ?Recorded docusate sodium 100 mg capsule 100 mg PO BID 9 days #18 caps 06/02/21 (Colace) azithromycin 250 mg tablet See Rx Instructions PO .COMPLEX #6 12/09/23 tabs benzonatate 100 mg capsule 100 mg PO BID PRN cough #20 caps 12/09/23 Allergies Allergy/AdvReac Type Severity Reaction Status Date / Time No Known Allergies Allergy Verified 01/06/24 19:19 [No Known Allergies*] Review of Systems Review of Systems: Pertinent positives and negatives as stated in HPI [facility] Past Medical History Source: nursing notes reviewed Medical History Joint pain Chronic back pain HTN (hypertension) Bleeding hemorrhoid Back pain with history of spinal surgery Social History Social History Patient Tobacco Use Status: Never used Tobacco Smoked in Last 30 Days: No Use of substances other than those prescribed or required for medical reasons: Yes Substance Use Type: Painkillers Advance Directives: No Advance Directives Information Provided: No Do you have a plan to hurt others: No Plan Physical Exam ED Vital Signs: Vital Signs - 24 hr 01/06/24 19:16 01/06/24 21:10 01/06/24 23:18 Temperature 98.2 F 98.4 F Pulse Rate 88 88 86 Respiratory Rate 18 19 18 Blood Pressure 148/56 H 144/52 H Pulse Oximetry 94 95 94 Oxygen Delivery Method Room Air Room Air Room Air Oxygen Flow Rate 01/07/24 00:28 01/07/24 00:53 01/07/24 01:14 Temperature 98.4 F Pulse Rate 85 103 H Respiratory Rate 23 H 20 Blood Pressure 154/64 H 154/64 H 133/84 Pulse Oximetry 93 96 Oxygen Delivery Method Room Air Room Air Oxygen Flow Rate 01/07/24 02:23 01/07/24 02:54 01/07/24 02:54 Temperature 102.3 F H Pulse Rate 125 H 153 H Respiratory Rate 20 22 H Blood Pressure 136/66 130/71 Pulse Oximetry 92 88 L 93 Oxygen Delivery Method Room Air Room Air Nasal Cannula Oxygen Flow Rate 1 01/07/24 03:35 01/07/24 03:44 01/07/24 04:41 Temperature 100.7 F H Pulse Rate 150 H 104 H 96 Respiratory Rate 20 20 20 Blood Pressure 103/40 L 112/48 L 99/51 L Pulse Oximetry 93 93 94 Oxygen Delivery Method Nasal Cannula Nasal Cannula Nasal Cannula Oxygen Flow Rate 1 1 1 01/07/24 04:45 01/07/24 06:03 01/07/24 09:56 Temperature 98.7 F Pulse Rate 88 80 63 Respiratory Rate 20 16 21 H Blood Pressure 104/55 L 100/55 L 132/61 Pulse Oximetry 95 96 94 Oxygen Delivery Method Nasal Cannula Room Air Room Air Oxygen Flow Rate 1 BMI result Body Mass Index 36.6 VITAL SIGNS: Reviewed. GENERAL: Well developed, well nourished, in no acute distress. HEAD: Normocephalic/atraumatic EYES: PERRLA, EOMI EARS: Ext canals without abnormality NOSE: Nares patent bilateral OROPHARYNX: no oral lesions noted, posterior pharynx clear NECK: Supple, no adenopathy LUNGS: Normal breath sounds. No adventitious sounds or accessory muscle use. SpO2<95> CARDIOVASCULAR: Regular rate and rhythm without noted murmurs, no JVD or lower extremity edema. ABDOMEN: Soft, right lower quadrant discomfort, non-distended with bowel sounds. MUSCULOSKELETAL: No tenderness, deformities, or effusions noted on gross inspection. EXTREMITIES: No cyanosis, clubbing or edema. SKIN: Inspection of the skin reveals no rashes NEUROLOGIC: Alert and oriented x 4. Strength and sensation to light touch were grossly intact x 4. Course Course Course Narrative: RME performed by Juliana Hilario PA-C. Patient is an 88 year old assigned female at presenting to the emergency department with shortness of breath and feeling fatigued over the last 3 days. Detailed physical exam and review of systems are deferred to the migratory worker. EK, labs, imaging, and swabs ordered. Patient placed back in the waiting room pending room availability and results. Reevaluation(s) Reevaluation #1: Patient was signed out to me by the overnight physician pending the results of a CT scan of the abdomen and pelvis. The patient is an 88-year-old female who presented with fairly nonspecific symptoms of feeling unwell for about 2 days. [place] [id number]. The highest temperature measured in the emergency room was at around 02:00 this morning when it was 102.3. She had a normal lactic acid. She has been given IV Zosyn. Additionally while in the emergency room she had had an episode of atrial fibrillation with rapid ventricular response. The patient does not have a history of atrial fibrillation. The CT scan of her abdomen and pelvis shows a questionable finding of possible mild pancreatitis. I added on a lipase which was negative. There was also question of focal pyelonephritis. Her urinalysis is very mildly abnormal. Whether pyelonephritis as her true diagnosis is not entirely clear but I think she will need to be hospitalized given her fever, her leukocytosis, her age, as well as the fact that she had an episode of atrial fibrillation while in the emergency room. --Bryant Goode Time: 10:00 Medications Administered Discontinued Medications Generic Name Dose Route Start Last Admin Trade Name Freq PRN Reason Stop Dose Admin Acetaminophen 975 mg 01/07/24 02:28 01/07/24 02:50 Acetaminophen 325 Mg Tablet PO 01/07/24 02:29 975 mg ONCE ONE Administration Furosemide 20 mg 01/07/24 00:45 01/07/24 00:53 Furosemide 20 Mg/2 Ml Vial IVPUSH 01/07/24 00:46 20 mg ONCE ONE Administration Protocol Piperacillin Sod/Tazobactam 50 mls @ 100 mls/hr 01/06/24 22:34 01/06/24 23:46 Sod 3.375 gm/ Sodium Chloride IV 01/06/24 23:03 Infused ONCE ONE Infusion Iohexol 85 ml 01/07/24 02:04 01/07/24 02:05 Iohexol 350 Mg/Ml 100 Ml Infus..Btl IV 01/07/24 02:05 85 ml ONCE ONE Administration Metoprolol Tartrate 5 mg 01/07/24 03:20 01/07/24 03:36 Metoprolol Tartrate 5 Mg/5 Ml Vial IVPUSH 01/07/24 03:21 5 mg ONCE ONE Administration Protocol Ondansetron HCl 4 mg 01/07/24 02:28 01/07/24 02:36 Ondansetron Hcl 4 Mg/2 Ml Vial IVPUSH 01/07/24 02:29 4 mg ONCE ONE Administration Oxycodone HCl 5 mg 01/07/24 00:46 01/07/24 00:53 Oxycodone Hcl Immed Release 5 Mg Tablet PO 01/07/24 00:47 5 mg ONCE ONE Administration Medical Decision Making Medical Decision Making [facility] Narrative: 0920: 88-year-old female with history and clinical presentation, DDX: Urinary tract infection, renal colic, diverticulitis, patient is status post appendectomy, lower clinical suspicion for obstruction, possible viral gastroenteritis. I reviewed all investigations and hematologic indices demonstrate a leukocytosis without anemia or thrombocytopenia. Coagulation studies are within normal limits. Chemistry indices do not demonstrate an SANTINO or electrolyte/liver enzyme derangements that patient's BNP is noted be elevated at 271 and will receive 20 mg of Lasix. Given the fact that patient has a leukocytosis she will receive antibiotics. Chest x-ray is negative for evidence of infiltrate. Urinalysis demonstrates leukocyte esterase as well as elevated WBCs, possibility of pyelonephritis with reported vomiting. She does endorse back pain but states that this is chronic in nature however nursing has informed me that she vomited after receiving her home prescription of oxycodone. Viral testing is negative for influenza/RSV/COVID-19. Will proceed with CT scan of abdomen pelvis. Nursing informed me that patient became febrile with increased heart rate, I suspect increased heart rate is secondary to patient's elevated temperature, however I was then informed that it appears to be irregular in nature and so repeat EKG was obtained which demonstrates atrial fibrillation with RVR. Will treat with antipyretic and evaluate for improvement in heart rate prior to administering beta-blockers. Patient atrial fibrillation with RVR resolved, repeat EKG demonstrates sinus bradycardia. Patient is no longer febrile, CT scan is still pending, serial troponins are flat with EKG changes mentioned above. Signed out to DR Goode - f/u CT scan abd pelvis ?diverticulitis - Had new onset a-fib with RVR that resolved with 5mg of lopressor and antipyretics. Differential Diagnosis Differential Diagnoses: The differential diagnosis associated with the presentation includes Please see the discussion above Admission/Observation Consideration of admission/observation: Escalation of care including admission/observation considered Please see the discussion above Lab Data MDM Lab Attestation statement: I reviewed the patient's lab results. Please see the discussion above 01/06/24 19:31 01/06/24 19:31 Labs: Lab Results 01/06/24 01/06/24 01/07/24 Range/Units 19:31 22:09 00:18 WBC 19.4 H (4.8-10.8) X10*3/uL RBC 3.87 L (4.20-5.50) X10*6/uL Hgb 12.2 (12.0-16.0) g/dl Hct 35.0 L (37.0-47.0) % MCV 90.4 (80.0-98.0) fL MCH 31.5 (27.0-33.0) pg MCHC 34.9 (31.0-35.0) g/dl RDW 13.3 (11.0-16.0) % Plt Count 305 (160-400) X10*3/uL MPV 9.6 (9.4-12.3) fL Immature Gran % (Auto) 0.9 H (0.0-0.4) % Neut % (Auto) 82.3 H (45-73) % Lymph % (Auto) 6.5 L (20-40) % [place] % (Auto) 9.8 (2-11) % Eos % (Auto) 0.2 (0-4) % Baso % (Auto) 0.3 (0-2) % Lymph # (Auto) 1.3 (1.2-4.9) X10*3/uL [place] # (Auto) 1.9 H (0.1-1.2) X10*3/uL Eos # (Auto) 0.0 (0.0-0.4) X10*3/uL Baso # (Auto) 0.1 (0.0-0.2) X10*3/uL Abs Immat Gran (auto) 0.18 H (0.00-0.03) X10*3/uL Absolute Neuts (auto) 16.0 H (2.0-8.3) x10*3/uL Absolute Nucleated RBC 0.000 (0.0-0.012) X10*3/uL Nucleated RBC % (auto) 0.0 (0.0-0.2) /100WBC Smear Tech's Comments VERIFIED PT 13.2 (11.1-13.3) SEC INR 1.1 (0.9-1.1) APTT 28.2 (26.0-36.8) SEC Sodium 136 (135-145) mmol/L Potassium 3.3 (3.3-5.1) mmol/L Chloride 105 (96-108) mmol/L Carbon Dioxide 21 L (22-29) mmol/L Anion Gap 13 (12-20) BUN 21 H (9-16) mg/dL Creatinine 1.06 (0.5-1.4) mg/dL Estim Creat Clear Calc 34.7 Estimated GFR 49 POC Glucose (60-115) mg/dL Random Glucose 150 H (60-115) mg/dL Lactic Acid 1.2 (0.5-2.0) mmol/L Calcium 9.4 (8.4-10.2) mg/dL Magnesium 1.6 (1.6-2.6) mg/dL Total Bilirubin 0.8 (0.0-1.0) mg/dL AST 18 (5-31) U/L ALT 18 (0-31) U/L Alkaline Phosphatase 92 (39-117) U/L Troponin I High Sens 12.7 (<3.5-17.0) ng/L B-Natriuretic Peptide 271 H (<100) pg/mL Total Protein 6.9 (6.5-8.0) g/dL Albumin 3.9 (3.5-5.0) g/dL Lipase (8-78) U/L Urine Color Yellow Urine Appearance Clear Urine pH 6.0 (5.0-9.0) Ur Specific [place] 1.010 (1.005-1.025) Urine Protein Trace (Neg-Trace) mg/dL Urine Glucose (UA) Negative (Negative) mg/dL Urine Ketones Negative (Negative) mg/dL Urine Blood Trace H (Negative) Urine Nitrite Negative (Negative) Ur Leukocyte Esterase Small (1+) H (Negative) Urine RBC 0-2 (0-2) /HPF Urine WBC 11-20 H (0-5) /HPF Ur Squamous Epith Cells 0-2 (0-2) /HPF Urine Bacteria Trace (None Seen) Hyaline Casts 0-2 (0-2) /LPF Influenza Type A (PCR) NEGATIVE (Negative) Influenza Type B (PCR) NEGATIVE (Negative) RSV RNA Qual (PCR) NEGATIVE (Negative) SARS-CoV-2 RNA (RT-PCR) NEGATIVE (Negative) 01/07/24 01/07/24 Range/Units 01:21 04:49 WBC (4.8-10.8) X10*3/uL RBC (4.20-5.50) X10*6/uL Hgb (12.0-16.0) g/dl Hct (37.0-47.0) % MCV (80.0-98.0) fL MCH (27.0-33.0) pg MCHC (31.0-35.0) g/dl RDW (11.0-16.0) % Plt Count (160-400) X10*3/uL MPV (9.4-12.3) fL Immature Gran % (Auto) (0.0-0.4) % Neut % (Auto) (45-73) % Lymph % (Auto) (20-40) % [place] % (Auto) (2-11) % Eos % (Auto) (0-4) % Baso % (Auto) (0-2) % Lymph # (Auto) (1.2-4.9) X10*3/uL [place] # (Auto) (0.1-1.2) X10*3/uL Eos # (Auto) (0.0-0.4) X10*3/uL Baso # (Auto) (0.0-0.2) X10*3/uL Abs Immat Gran (auto) (0.00-0.03) X10*3/uL Absolute Neuts (auto) (2.0-8.3) x10*3/uL Absolute Nucleated RBC (0.0-0.012) X10*3/uL Nucleated RBC % (auto) (0.0-0.2) /100WBC Smear Tech's Comments PT (11.1-13.3) SEC INR (0.9-1.1) APTT (26.0-36.8) SEC Sodium (135-145) mmol/L Potassium (3.3-5.1) mmol/L Chloride (96-108) mmol/L Carbon Dioxide (22-29) mmol/L Anion Gap (12-20) BUN (9-16) mg/dL Creatinine (0.5-1.4) mg/dL Estim Creat Clear Calc Estimated GFR POC Glucose 148 H (60-115) mg/dL Random Glucose (60-115) mg/dL Lactic Acid (0.5-2.0) mmol/L Calcium (8.4-10.2) mg/dL Magnesium (1.6-2.6) mg/dL Total Bilirubin (0.0-1.0) mg/dL AST (5-31) U/L ALT (0-31) U/L Alkaline Phosphatase (39-117) U/L Troponin I High Sens 10.5 (<3.5-17.0) ng/L B-Natriuretic Peptide (<100) pg/mL Total Protein (6.5-8.0) g/dL Albumin (3.5-5.0) g/dL Lipase 17 (8-78) U/L Urine Color Urine Appearance Urine pH (5.0-9.0) Ur Specific [place] (1.005-1.025) Urine Protein (Neg-Trace) mg/dL Urine Glucose (UA) (Negative) mg/dL Urine Ketones (Negative) mg/dL Urine Blood (Negative) Urine Nitrite (Negative) Ur Leukocyte Esterase (Negative) Urine RBC (0-2) /HPF Urine WBC (0-5) /HPF Ur Squamous Epith Cells (0-2) /HPF Urine Bacteria (None Seen) Hyaline Casts (0-2) /LPF Influenza Type A (PCR) (Negative) Influenza Type B (PCR) (Negative) RSV RNA Qual (PCR) (Negative) SARS-CoV-2 RNA (RT-PCR) (Negative) Independent Interpretation I performed an independent interpretation of an: EKG Interpretation: Sinus rhythm, HR-83, no STEMI, IL/QRS/QTC is within normal limits. 0242: Atrial fibrillation with RVR, HR-127, no STEMI, QRS/QTC is within normal limits. Radiology Impression Discussion of test interpretation with radiology: I have reviewed the radiologist's reading. Radiologist Impression: Please see the discussion above External Record Review External record reviewed: Outpatient record, Prior outpatient labs and Prior outpatient radiology Critical Care Time Critical Care Time Critical Care Time: Yes Total Critical Care Time: 60 Attestation: I personally attest to this time spent taking care of the patient. Discharge Plan Discharge Clinical Impression: Atrial fibrillation with RVR, Abdominal pain, Elevated brain natriuretic peptide (BNP) level, Leukocytosis Patient Disposition: Admitted As Inpatient Print Language: Libyan
[2024-01-06 19:16] VITALS: BP 148/56; PULSE 88; RESP 18; TEMP 36.8; O2SAT 94; BMI 36.6
--- NOTE | 2024-01-06 19:16 | ECG_ITS ---
Test Reason : CHEST PAIN Blood Pressure : / mmHG Vent. Rate : 083 BPM Atrial Rate : 083 BPM P-R Int : 154 ms QRS Dur : 076 ms QT Int : 388 ms P-R-T Axes : 016 -13 007 degrees QTc Int : 455 ms Normal sinus rhythm Premature atrial complexes Minimal voltage criteria for LVH, may be normal variant ( R in aVL ) Cannot rule out Anterior infarct , age undetermined Abnormal ECG When compared with ECG of 15-JUN-2019 11:00, Premature atrial complexes are now Present Referred By: Juliana Hilario Electronically Signed By:GIUSEPPE NUGENT
[2024-01-06 19:38] LABS: Basophils Absolute Auto 0.1 X10*3/uL (0.0-0.2); Basophils Percent Auto 0.3 % (0-2); Eosinophils Percent Auto 0.2 % (0-4); Hemoglobin 12.2 g/dl (12.0-16.0); Imm Gran Abs Auto 0.18 X10*3/uL (0.00-0.03); Imm Gran Pct Auto 0.9 % (0.0-0.4); Lymphocytes Absolute Auto 1.3 X10*3/uL (1.2-4.9); Lymphocytes Percent Auto 6.5 % (20-40); MANUAL DIFF FLAG SCAN; Mean Corpuscular HGB Conc 34.9 g/dl (31.0-35.0); Mean Corpuscular Hemoglobin 31.5 pg (27.0-33.0); Mean Corpuscular Volume 90.4 fL (80.0-98.0); Mean Platelet Volume 9.6 fL (9.4-12.3); Monocytes Absolute Auto 1.9 X10*3/uL (0.1-1.2); Monocytes Percent Auto 9.8 % (2-11); Neutrophils Percent Auto 82.3 % (45-73); Platelet Count 305 X10*3/uL (160-400); Red Blood Count 3.87 X10*6/uL (4.20-5.50); Red Cell Distribution Width 13.3 % (11.0-16.0); SCAN SMEAR FLAG 1
[2024-01-06 19:51] LABS: INTERNATIONAL NORM RATIO 1.1 (0.9-1.1); Prothrombin Time 13.2 SEC (11.1-13.3)
[2024-01-06 19:53] LABS: Partial Thromboplastin Time 28.2 SEC (26.0-36.8)
[2024-01-06 19:55] LABS: Alanine Aminotransferase 18 U/L (0-31); Albumin Level 3.9 g/dL (3.5-5.0); Alkaline Phosphatase 92 U/L (39-117); Anion Gap 13 (12-20); Aspartate Amino Transferase 18 U/L (5-31); Bilirubin Total 0.8 mg/dL (0.0-1.0); Blood Urea Nitrogen 21 mg/dL (9-16); Calcium 9.4 mg/dL (8.4-10.2); Carbon Dioxide 21 mmol/L (22-29); Chloride 105 mmol/L (96-108); Creatinine Clr Calc Pharmacy 34.7; Estimated Glomerular Filt Rate 49; Glucose Random 150 mg/dL (60-115); Magnesium 1.6 mg/dL (1.6-2.6); Potassium 3.3 mmol/L (3.3-5.1); Sodium 136 mmol/L (135-145); Total Protein 6.9 g/dL (6.5-8.0)
[2024-01-06 19:59] LABS: B Type Natriuretic Peptide 271 pg/mL (<100)
[2024-01-06 20:02] LABS: Troponin-I High Sensitivity 12.7 ng/L (<3.5-17.0)
[2024-01-06 20:07] LABS: SLIDE REVIEW VERIFIED; White Blood Count 19.4 X10*3/uL (4.8-10.8)
[2024-01-06 20:13] LABS: Influenza A PCR NEGATIVE (Negative); Influenza B PCR NEGATIVE (Negative); Resp Syncy Virus RNA Qual PCR NEGATIVE (Negative); SARS COV2 PCR INHOUSE NEGATIVE (Negative)
[2024-01-06 21:10] VITALS: PULSE 88; RESP 19; TEMP 36.9; O2SAT 95
--- NOTE | 2024-01-06 22:11 | PC.NURSE ---
pt came in from reporting dx with flu 3 weeks ago, has experienced dyspnea since worse since saturday, worse on exertion. pt is axox4 ambulates with steady gait. crackles ausc R. lobe, L. lobe clear. resp even and unlabored. sats 95-96% on RA at rest. pt reports she takes a medication to make me pee less. pt unable to provide ua sample at this time, bladder scan showed 0mL urine. iv established R. AC. awaiting lab results. daughter at bedside. call wilcox within reach.
[2024-01-06 22:24] LABS: Lactic Acid 1.2 mmol/L (0.5-2.0)
[2024-01-06] MEDS: Piperacillin Sodium/Tazobactam 3.375 GM in 0.9 % Sodium Chloride 50 ML IV (23:16)
[2024-01-06 23:18] VITALS: BP 144/52; PULSE 86; RESP 18; O2SAT 94
--- NOTE | 2024-01-06 23:19 | PC.NURSE ---
pt reports 5/10 back pain chronic takes oxycodone at home for this. Dr. Galloway aware. pt helped to reposition in stretcher.
[2024-01-07] VITALS (16 sets, daily range): BP systolic 99–154; BP diastolic 40–84; PULSE 63–153; RESP 16–23; TEMP 36.1–39.1; O2SAT 88–96; BMI 36.3
--- NOTE | 2024-01-07 | ECG_ITS ---
Test Reason : CONVERTED BACK TO SINUS Blood Pressure : / mmHG Vent. Rate : 068 BPM Atrial Rate : 068 BPM P-R Int : 158 ms QRS Dur : 076 ms QT Int : 438 ms P-R-T Axes : 049 -06 -03 degrees QTc Int : 465 ms Normal sinus rhythm Normal ECG When compared with ECG of 07-JAN-2024 06:32, No significant changes seen Referred By: Trupti Chavez Electronically Signed By:GIUSEPPE NUGENT
[2024-01-07 00:33] LABS: Appearance Urine Clear; Bacteria Urine Trace (None Seen); Color Urine Yellow; Glucose Urine UA Negative (Negative); Hyaline Casts Urine 0-2 /LPF (0-2); Leukocyte Esterase Urine Small (1+) (Negative); Nitrite Urine Negative (Negative); RBC Urine 0-2 /HPF (0-2); Squamous Epithelial Cell Urine 0-2 /HPF (0-2); UACC Culture Trigger YES; UMIC TRIGGER UACC YES; Urine Blood Trace (Negative); Urine Ketones Negative (Negative); Urine Protein Trace mg/dL (Neg-Trace)
[2024-01-07] MEDS: oxyCODONE HCl Immed Release 5 MG TABLET PO ×3 (00:53→22:23)
[2024-01-07] MEDS: Furosemide 20 MG/2 ML VIAL IVPUSH (00:53)
--- NOTE | 2024-01-07 01:11 | PC.NURSE ---
pt medicated per sep. 1-2 minutes after taking oxy pt had a vomiting episode, yellow bile color. pt reports she was not nauseous/abd pain prior. pt reports still nauseous now. Dr. Galloway aware.
[2024-01-07 01:52] LABS: Troponin-I High Sensitivity 10.5 ng/L (<3.5-17.0)
[2024-01-07] MEDS: iohexoL 350 MG/ML 100 ML INFUS..BTL 85 ML IV (02:05)
--- NOTE | 2024-01-07 02:30 | PC.NURSE ---
Addendum entered by Lauryn Grover 01/07/24 02:38: no ekg per md. Original Note: pt now sinus tachy on monitor heart rate 130s. pt denies cp/sob at this time. temp 102.3F. Dr. Galloway made aware. iv zofran ordered as pt previously vomiting with po intake. pt reports nausea now, denies abd pain. po tylenol ordered as well for fever.
[2024-01-07] MEDS: ondansetron HCL 4 MG/2 ML VIAL IVPUSH (02:36)
--- NOTE | 2024-01-07 02:41 | ECG_ITS ---
Test Reason : RYTHM CHANGE Blood Pressure : / mmHG Vent. Rate : 127 BPM Atrial Rate : 000 BPM P-R Int : 000 ms QRS Dur : 080 ms QT Int : 322 ms P-R-T Axes : 000 -06 175 degrees QTc Int : 467 ms Atrial fibrillation with rapid ventricular response Lateral ST depression, possible ischemia Abnormal ECG When compared with ECG of 06-JAN-2024 19:20, Atrial fibrillation has replaced Sinus rhythm Vent. rate has increased BY 44 BPM T wave inversion now evident in Inferior leads T wave inversion now evident in Lateral leads Referred By: Terri Galloway Electronically Signed By:GIUSEPPE NUGENT
[2024-01-07] MEDS: Acetaminophen 325 MG TABLET 975 MG PO (02:50)
--- NOTE | 2024-01-07 02:53 | PC.NURSE ---
reviewed ekg. sats 88% on RA. pt placed on 1L NC. sats 93%. aware.
[2024-01-07] MEDS: Metoprolol Tartrate 5 MG/5 ML VIAL IVPUSH (03:36)
--- NOTE | 2024-01-07 04:42 | PC.NURSE ---
HR improved after lopressor given per sep. 90-100 bpm heart rate. pt denies cp/sob. resting comfortably in stretcher. call wilcox within reach.
[2024-01-07 04:53] LABS: Glucose, Whole Blood 148 mg/dL (60-115)
--- NOTE | 2024-01-07 07:00 | CA_ITS ---
Transthoracic Echocardiogram Patient (Last, First, Middle): Brenda Wolf M Gender: Female Date of : 1935 Age: 88 Procedure Date: 01/07/2024 Procedure Type: Transthoracic Echocardiogram Location: ER Height: 149.86 cm Weight: 82.1 kg BSA: 1.77 m2 Heart Rate: 68 bpm BP: 132 / 61 mmHg Furnace Filler: SB Referring MD: Trupti BELTRAN Symptoms: new afib Study Quality: Adequate w contrast ECG Rhythm: Sinus Conclusions: - The left ventricular systolic function is normal. The visually estimated ejection fraction is between 60-65%. - There is moderate septal asymmetric hypertrophy. - No obvious valvular pathology seen on this study. Findings Procedure Information Contrast agent, definity, is being given per protocol without apparent complications. The quality of the study was technically difficult. The study quality is limited by patients body habitus. Left Ventricle Normal left ventricular cavity size. The left ventricular systolic function is normal. The visually estimated ejection fraction is between 60-65%. There is no evidence of regional wall motion abnormalities. Diastolic function is normal for age. There is moderate septal asymmetric hypertrophy. Right Ventricle Normal right ventricular cavity size. There is low normal right ventricular systolic function. Atria Both atria are normal in size. Aortic Valve There is a normal trileaflet aortic valve. There is mild calcification of the aortic valve. There is no aortic valve stenosis. There is no aortic valve regurgitation. Mitral Valve There is mild mitral annular calcification. There is trace mitral valve regurgitation. There is no mitral valve stenosis. Pulmonic Valve The pulmonic valve is likely normal. Tricuspid Valve There is mild tricuspid valve regurgitation. Borderline RVSP. Great Vessels The asc aorta is normal in size. Venous The inferior vena cava is normal in size and collapses greater than 50% with inspiration. Pericardium/Pleural There is no evidence of pericardial effusion. Prior Study Comparison No prior study available for comparison. Recommendations, Care & Conclusions No obvious valvular pathology seen on this study. Measurements 2D Linear Measurements IVSd: 1.35 0.6-0.9/0.6-1.0 cm LVIDd: 4.16 3.9-5.3/4.2-5.9 cm LVIDd Index: 2.35 2.4-3.2/2.2-3.1 cm/m2 LVIDs: 2.72 2.0-3.6 cm LVPWd: 0.85 0.7-1.1 cm LA Diam: 3.30 2.7-3.8/3.0-4.0 cm LAIDs Index: 1.86 1.5-2.3 cm/m2 LV Mass: 193.18 67-162/88-224 g LV Mass Index: 109.14 43-95/49-115 g/m2 LVOT Diam: 2.00 3.0+(-)1.3 cm 2D Systolic Function EF 4C: 75.80 >55% EF 2C: 77.90 >55% EF BiP: 77.20 >55% Mitral Valve MV Pk E: 0.81 MV PK A: 1.11 MV Decel Time: 234.00 E/A: 0.70 E'Lateral: 6.42 E'Medial: 7.62 E/E' Med: 10.60 E/E' Lat: 12.60 PHT: 68.00 MVA PHT: 3.24 Decel [place]: 3.47 Aortic Valve AoV Pk Jhonny: 1.32 AoV Pk Grad: 7.00 NICOLAS: 2.43 LVOT LVOT Pk Jhonny: 1.03 LVOT Mn Jhonny: 0.66 LVOT VTI: 0.23 LVOT Pk Grad: 4.00 LVOT Mn Grad: 2.00 LVOT Diam: 2.00 LVOT Area: 3.14 Diastolic Function MV Pk E: 0.81 MV Pk A: 1.11 E/A: 0.70 E'Medial: 7.62 E/E' Med: 10.60 E' Laterial: 6.42 E/E' Lat: 12.60 Right Ventricle TAPSE (mm): 20.30 TVS' Jhonny: 10.80 Tricuspid Valve TR Pk Jhonny: 2.81 TR Pk Grad: 32.00 RA Press: 3.00 RVSP: 35.00 Great Vessels Aorta Sinus of Valsalva: 2.80 2.0-3.5 cm Ao Asc: 3.20 2.1-3.4 cm Pulmonary Valve PV Pk Jhonny: 1.01 Peak PV Grad: 4.00 Updated in Other Vendor System with Status of Final Carlito Collier MD electronically signed on 01/07/2024 11:49:21 AM with status of Final
--- NOTE | 2024-01-07 07:49 | PC.NURSE ---
resumed care of patient she currently offers no complaints of pain or nausea. she is currently resting comfortably. awaiting rad results
[2024-01-07 08:58] LABS: Lipase 17 U/L (8-78)
--- NOTE | 2024-01-07 10:07 | P.HPHOSP_ITS ---
History of Present Illness Date of Service: 01/07/24 Attending physician on admission: Samuel Hernández Chief Complaint: fatigue, nausea, vomiting 88-year-old female with history of hypertension, chronic pain disorder, post- laminectomy syndrome, mood disorder, urge incontinence presents to the ED for evaluation of fatigue and lethargy ongoing for 3 days. She states that since Saturday, she has not wanted to get out of bed and has been sleeping near constantly. She is anorexia with associated nausea and did vomit x1 last night. She has also had chills but has not taken her temperature. For many months, she also reports dyspnea on exertion that has not acutely worsened. There is also occasionally anxiety and mild chest discomfort. She denies any orthopnea, edema, weight gain. Denies abdominal pain, diarrhea, melena, hematochezia, hematemesis, dysuria, hematuria, increased urinary frequency from baseline. On arrival, VSS. However developed fever 102.3 with tachycardia up to 150s. EKG revealed new onset afib. Given IV lopressor with improvement in HR to the 80s and low 60s on admission. BP soft, but no hypotension. BP 132/61 on admission. EKG ordered to confirm conversion back to NSR. While in rapid afib was also hypoxic to 88% and placed on 2L but has been weaned back to RA. On arrival, there was a leukocytosis of 19.4. Renal function appears consistent with baseline, electrolyte levels normal. Lactic acid 1.2. Mild hyperglycemia of 150. Initial troponin 12.7, repeat 10.5. BNP 271. TSH pending. Urinalysis significant for 1+ leukocytes, trace blood, positive urinary sediment, trace bacteria. She is negative for flu, COVID, RSV. Radiology read her chest x-ray is pending but appears to be negative for any acute cardiopulmonary abnormality. CT abdomen/pelvis shows possible mild peripancreatic infiltrative change but lipase is 17. There is also possible area of focal pyelonephritis in the right kidney versus complex cyst. Gallbladder is mildly distended but no gallstones seen. In the ED, was given Tylenol, initially thought to be in volume overload and was given 20 mg Lasix. Given 5 mg IV Lopressor, ondansetron, oxycodone, and started on IV Zosyn. Review of Systems 2 Review of Systems: Yes all other systems are reviewed and are negative PMFSH Medical History Urge incontinence Joint pain Chronic back pain HTN (hypertension) Bleeding hemorrhoid Back pain with history of spinal surgery Social History Patient Tobacco Use Status: Never used Tobacco Smoked in Last 30 Days: No Use of substances other than those prescribed or required for medical reasons: Yes Substance Use Type: Painkillers Advance Directives: No Advance Directives Information Provided: No Do you have a plan to hurt others: No Plan Meds Allergies Allergy/AdvReac Type Severity Reaction Status Date / Time No Known Allergies Allergy Verified 01/06/24 19:19 [No Known Allergies*] Active Medications: Current Medications Acetaminophen (Acetaminophen 325 Mg Tablet) 650 mg PO Q6H PRN PRN Reason: Pain, Mild 1-3, h/a, fever Magnesium Hydroxide (Milk Of Magnesia 30 Ml Oral.Susp) 30 ml PO DAILY PRN PRN Reason: Constipation Ondansetron HCl (Ondansetron Hcl 4 Mg/2 Ml Vial) 4 mg IVPUSH Q8H PRN PRN Reason: Nausea and Vomiting Sodium Chloride (0.9 % Sodium Chloride Flush 3 Ml Syringe) 3 ml [facility] Medications ?Medication ?Instructions ?Recorded ?Confirmed ?Last Taken ?Type albuterol sulfate 90 mcg/actuation 2 puff PO Q6H PRN wheezing 03/18/21 01/07/24 Unknown History aerosol inhaler amlodipine 10 mg tablet 10 mg PO DAILY 03/18/21 01/07/24 01/06/24 History atorvastatin 10 mg tablet 10 mg PO DAILY 03/18/21 01/07/24 01/06/24 History fluticasone propionate 50 1 spray intranasal DAILY 03/18/21 01/07/24 01/06/24 History mcg/actuation nasal spray,suspension losartan 100 mg tablet 100 mg PO DAILY 03/18/21 01/07/24 01/06/24 History pantoprazole 40 mg tablet,delayed 40 mg PO DAILY@0630 03/18/21 01/07/24 01/06/24 History release sertraline 50 mg tablet 50 mg PO BEDTIME 03/18/21 01/07/24 Unknown History trazodone 100 mg tablet 100 mg PO BEDTIME Insomnia 03/18/21 01/07/24 Unknown History meloxicam 15 mg tablet 15 mg PO DAILY Pain 12/09/23 01/07/24 01/06/24 History oxycodone 5 mg tablet 5 mg PO TID PRN Pain 12/09/23 01/07/24 Unknown History vibegron 75 mg tablet (Gemtesa) 75 mg PO DAILY 12/09/23 01/07/24 01/06/24 History docusate sodium 100 mg capsule 100 mg PO BID PRN Constipation 01/07/24 01/07/24 Unknown History (Colace) fluticasone furoate 200 1 ea inhalation DAILY 01/07/24 01/07/24 01/06/24 History mcg-vilanterol 25 mcg/dose inhalation powder (Breo Ellipta) Physical Exam 2 Vital Signs and Narrative: Vital Signs: Last Vital Signs Temp 98.7 F 01/07/24 04:45 Pulse 63 01/07/24 09:56 Resp 21 H 01/07/24 09:56 BP 132/61 01/07/24 09:56 Pulse Ox 94 01/07/24 09:56 O2 Del Method Room Air 01/07/24 09:56 O2 Flow Rate 1 01/07/24 04:45 BMI result Body Mass Index 36.6 Constitutional - Awake and Alert, No apparent distress Eyes - PERRLA, EOMI Cardiovascular - S1S2, RRR, No edema Respiratory - Normal lung expansion, Normal respiratory effort, No respiratory distress, CTA bilaterally Gastrointestinal - NT / ND; +BS; No rebound or guarding - No CVA tenderness Extremities - no calf tenderness bilaterally, no swelling Skin - Warm/Dry Neurological - Alert & oriented x3 Psychological - Appropriate affect Results Labs 01/06/24 19:31 01/06/24 19:31 Labs: Laboratory Results - last 24 hr 01/06/24 01/06/24 01/07/24 19:31 22:09 00:18 MCV 90.4 MCH 31.5 MCHC 34.9 RDW 13.3 Plt Count 305 MPV 9.6 Immature Gran % (Auto) 0.9 H Neut % (Auto) 82.3 H Lymph % (Auto) 6.5 L [place] % (Auto) 9.8 Eos % (Auto) 0.2 Baso % (Auto) 0.3 Lymph # (Auto) 1.3 [place] # (Auto) 1.9 H Eos # (Auto) 0.0 Baso # (Auto) 0.1 Abs Immat Gran (auto) 0.18 H Absolute Neuts (auto) 16.0 H Absolute Nucleated RBC 0.000 Nucleated RBC % (auto) 0.0 Smear Tech's Comments VERIFIED PT 13.2 INR 1.1 APTT 28.2 Anion Gap 13 Estim Creat Clear Calc 34.7 Estimated GFR 49 POC Glucose Random Glucose 150 H Lactic Acid 1.2 Calcium 9.4 Magnesium 1.6 Total Bilirubin 0.8 AST 18 ALT 18 Alkaline Phosphatase 92 Troponin I High Sens 12.7 B-Natriuretic Peptide 271 H Total Protein 6.9 Albumin 3.9 Lipase Urine Color Yellow Urine Appearance Clear Urine pH 6.0 Ur Specific [place] 1.010 Urine Protein Trace Urine Glucose (UA) Negative Urine Ketones Negative Urine Blood Trace H Urine Nitrite Negative Ur Leukocyte Esterase Small (1+) H Urine RBC 0-2 Urine WBC 11-20 H Ur Squamous Epith Cells 0-2 Urine Bacteria Trace Hyaline Casts 0-2 Influenza Type A (PCR) NEGATIVE Influenza Type B (PCR) NEGATIVE RSV RNA Qual (PCR) NEGATIVE SARS-CoV-2 RNA (RT-PCR) NEGATIVE 01/07/24 01/07/24 01:21 04:49 MCV MCH MCHC RDW Plt Count MPV Immature Gran % (Auto) Neut % (Auto) Lymph % (Auto) [place] % (Auto) Eos % (Auto) Baso % (Auto) Lymph # (Auto) [place] # (Auto) Eos # (Auto) Baso # (Auto) Abs Immat Gran (auto) Absolute Neuts (auto) Absolute Nucleated RBC Nucleated RBC % (auto) Smear Tech's Comments PT INR APTT Anion Gap Estim Creat Clear Calc Estimated GFR POC Glucose 148 H Random Glucose Lactic Acid Calcium Magnesium Total Bilirubin AST ALT Alkaline Phosphatase Troponin I High Sens 10.5 B-Natriuretic Peptide Total Protein Albumin Lipase 17 Urine Color Urine Appearance Urine pH Ur Specific [place] Urine Protein Urine Glucose (UA) Urine Ketones Urine Blood Urine Nitrite Ur Leukocyte Esterase Urine RBC Urine WBC Ur Squamous Epith Cells Urine Bacteria Hyaline Casts Influenza Type A (PCR) Influenza Type B (PCR) RSV RNA Qual (PCR) SARS-CoV-2 RNA (RT-PCR) Imaging Radiologist's Impressions: Impressions Abdomen/Pelvis CT 01/07/24 02:00 IMPRESSION: 1. There appears to be mild peripancreatic infiltrative change. There is possibly related to motion versus mild/early pancreatitis. Correlation needed 2. There is a small area of diminished enhancement mid to upper pole right kidney. This could represent focal pyelonephritis versus complex cyst.. 3. The gallbladder is distended. No definite gallstones are seen. 4. There are diverticula of the descending and sigmoid colon without evidence for acute diverticulitis. Fleischner guidelines were followed. Assessment and Plan (1) New onset atrial fibrillation: Status: Acute (2) Sepsis: Status: Acute (3) Acute pyelonephritis: Status: Acute Plan 88-year-old female with history of hypertension, chronic pain disorder, post- laminectomy syndrome, mood disorder, urge incontinence admitted for management of acute pyelonephritis with sepsis and new onset atrial fibrillation with rvr #New onset atrial fibrillation with RVR -HR's up to 150s overnight, improved to 80s and low 60s following 5mg IVlopressor and antiemetics on admission. EKG to confirm conversion back to NSR pending -CHADS2 Vasc score at least 4. No contraindication to anticoagulation exists, discussed with patient who is in agreement with initiation of Eliquis 5 mg b.i.d. -hold on rate control medications at this time as pt has converted back to NSR with HRs low 60s -mag wnl, tsh pending -echo -cardiac diet -cardiology consult -monitor on tele #Acute pyelonephritis with sepsis -leukocytosis 19, tachycardic, tachypneic, febrile to 102.3.Met sepsis criteria at 00:28. Lactic acid normal. BP drop r/t IV lopressor and lasix. No end organ damage. No severe sepsis/shock -UA with 1+ leukocytes, negative nitrites, positive blood, positive urinary sediment, trace bacteria -IV ceftriaxone (initiated 01/06) (was given single dose of IV Zosyn 01/05) -follow CBC, cultures #Elevated BNP -suspect has some degree of HF unspecified with BNP 271, but no acute exacerbation -echo ordered #HTN -continue losartan at decreased dose 50mg given soft pressures earlier. Hold amlodipine for now #Chronic pain syndrome/post laminectomy syndrome -continue oxycodone/bowel regimen, meloxicam #Mood disorder -continue home meds #COPD -no exacerbation -continue home inhalers # urge incontinence -continue home meds DVT prophylaxis-Rahel DNR/DNI Patient meeting sepsis criteria with acute pyelonephritis will require admission of at least 2 midnights for IV antibiotics, close monitoring of hemodynamics. She will also require close cardiac monitoring and expert consultation given new onset atrial fibrillation with rapid ventricular rate requiring IV rate control medications Quality Stroke Does the patient have a stroke diagnosis?: No VTE Prior VTE?: No VTE Risk Level:: Medical - moderate - high VTE Device Contraindication: Treatment Not Indicated VTE Drug Contraindication: N/A - Med Ordered
--- NOTE | 2024-01-07 10:26 | PHA.MEDREC ---
Pharmacy Consult ? Medication Reconciliation Pharmacy has completed the medication reconciliation. Patient has daughter with med list. However, confirmed meds through patient.
[2024-01-07] MEDS: cefTRIAXone sodium 1 GM in 0.9 % Sodium Chloride 50 ML IV (10:42)
[2024-01-07] MEDS: Apixaban 5 MG TABLET PO ×2 (10:42→20:04)
[2024-01-07 11:14] LABS: Basophils Absolute Auto 0.1 X10*3/uL (0.0-0.2); Basophils Percent Auto 0.3 % (0-2); Eosinophils Absolute Auto 0.2 X10*3/uL (0.0-0.4); Eosinophils Percent Auto 1.1 % (0-4); Hematocrit 36.1 % (37.0-47.0); Hemoglobin 12.1 g/dl (12.0-16.0); Imm Gran Abs Auto 0.18 X10*3/uL (0.00-0.03); Lymphocytes Absolute Auto 1.6 X10*3/uL (1.2-4.9); Lymphocytes Percent Auto 8.9 % (20-40); MANUAL DIFF FLAG SCAN; Mean Corpuscular HGB Conc 33.5 g/dl (31.0-35.0); Mean Corpuscular Volume 92.6 fL (80.0-98.0); Mean Platelet Volume 9.9 fL (9.4-12.3); Monocytes Absolute Auto 1.8 X10*3/uL (0.1-1.2); Monocytes Percent Auto 10.1 % (2-11); Neutrophils Absolute Auto 13.9 x10*3/uL (2.0-8.3); Neutrophils Percent Auto 78.6 % (45-73); Platelet Count 308 X10*3/uL (160-400); Red Cell Distribution Width 13.6 % (11.0-16.0); SCAN SMEAR FLAG 1; White Blood Count 17.6 X10*3/uL (4.8-10.8)
[2024-01-07 11:27] LABS: Anion Gap 15 (12-20); Blood Urea Nitrogen 23 mg/dL (9-16); Calcium 9.1 mg/dL (8.4-10.2); Carbon Dioxide 26 mmol/L (22-29); Chloride 102 mmol/L (96-108); Creatinine Clr Calc Pharmacy 29.7; Estimated Glomerular Filt Rate 41; Glucose Random 107 mg/dL (60-115); Magnesium 1.9 mg/dL (1.6-2.6); Potassium 3.9 mmol/L (3.3-5.1); Sodium 139 mmol/L (135-145)
[2024-01-07 11:30] LABS: Estimated Average Glucose 111 mg/dL; Hemoglobin A1c % 5.5 % (<6.0)
[2024-01-07 11:31] LABS: SLIDE REVIEW VERIFIED
[2024-01-07] MEDS: Losartan Potassium 50 MG TABLET PO (12:32)
[2024-01-07] MEDS: NaPROXEN 500 MG TABLET PO ×2 (12:32→20:04)
[2024-01-07 12:38] LABS: Free T4 (Free Thyroxine) 0.96 ng/dL (0.71-1.85)
--- NOTE | 2024-01-07 19:35 | PC.NURSE ---
Assumed care of pt. Pt in bathroom on arrival of this RN. Bed available on unit. Preparing for admission.
[2024-01-07] MEDS: traZODone HCL 100 MG TABLET PO (20:04)
[2024-01-07] MEDS: Sertraline HCL 50 MG TABLET PO (20:05)
[2024-01-07] MEDS: 0.9 % Sodium Chloride Flush 3 ML SYRINGE IVFLUSH ×2 (20:09→23:54)
[2024-01-07] MEDS: Docusate Sodium 100 MG CAPSULE PO (22:26)
[2024-01-08] VITALS (7 sets, daily range): BP systolic 136–144; BP diastolic 61–67; PULSE 67–83; RESP 18–20; TEMP 35.8–36.1; O2SAT 93–98
[2024-01-08] MEDS: Omeprazole 20 MG CAPSULE.DR PO (05:38)
[2024-01-08 06:57] LABS: Basophils Absolute Auto 0.1 X10*3/uL (0.0-0.2); Basophils Percent Auto 0.5 % (0-2); Eosinophils Absolute Auto 0.6 X10*3/uL (0.0-0.4); Eosinophils Percent Auto 4.7 % (0-4); Hemoglobin 11.4 g/dl (12.0-16.0); Imm Gran Abs Auto 0.17 X10*3/uL (0.00-0.03); Imm Gran Pct Auto 1.3 % (0.0-0.4); Lymphocytes Absolute Auto 1.8 X10*3/uL (1.2-4.9); MANUAL DIFF FLAG SCAN; Mean Corpuscular HGB Conc 33.5 g/dl (31.0-35.0); Mean Corpuscular Hemoglobin 31.5 pg (27.0-33.0); Mean Corpuscular Volume 93.9 fL (80.0-98.0); Mean Platelet Volume 10.1 fL (9.4-12.3); Monocytes Absolute Auto 1.6 X10*3/uL (0.1-1.2); Monocytes Percent Auto 12.4 % (2-11); Neutrophils Absolute Auto 8.7 x10*3/uL (2.0-8.3); Neutrophils Percent Auto 67.1 % (45-73); Platelet Count 264 X10*3/uL (160-400); Red Blood Count 3.62 X10*6/uL (4.20-5.50); Red Cell Distribution Width 13.5 % (11.0-16.0); SCAN SMEAR FLAG 1
[2024-01-08 07:11] LABS: Anion Gap 14 (12-20); Blood Urea Nitrogen 43 mg/dL (9-16); Calcium 8.7 mg/dL (8.4-10.2); Carbon Dioxide 22 mmol/L (22-29); Chloride 102 mmol/L (96-108); Creatinine Clr Calc Pharmacy 16.2; Estimated Glomerular Filt Rate 21; Glucose Random 107 mg/dL (60-115); Potassium 3.3 mmol/L (3.3-5.1); Sodium 135 mmol/L (135-145)
[2024-01-08] MEDS: Fluticasone/Vilanterol 200/25 BLST.W.DEV 1 PUFF INHALE (07:44)
[2024-01-08 07:55] LABS: SLIDE REVIEW VERIFIED
[2024-01-08] MEDS: NaPROXEN 500 MG TABLET PO (08:09)
[2024-01-08] MEDS: Atorvastatin Calcium 10 MG TABLET PO (08:09)
[2024-01-08] MEDS: PT OWN (Vibegron [Gemtesa] 75 mg tablet) 75 EACH PO (08:09)
[2024-01-08] MEDS: Losartan Potassium 50 MG TABLET PO (08:10)
[2024-01-08] MEDS: Apixaban 5 MG TABLET PO (08:10)
[2024-01-08] MEDS: 0.9 % Sodium Chloride Flush 3 ML SYRINGE IVFLUSH (08:13)
[2024-01-08] MEDS: 0.9 % Sodium Chloride 1,000 ML 100 ML IVCONT ×3 (08:13→22:50)
--- NOTE | 2024-01-08 09:14 | MHC.CM.PN ---
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 Pt does not use DME, and has not had services from [facility]. HCP will be completed and added to chart. Dtr can transport at DC. DCP: home with services. CM to follow and assist with DC planning.
--- NOTE | 2024-01-08 09:33 | PM.CNCAR ---
History of Present Illness History of Present Illness Date of Service: 01/08/24 Chief complaint: Acute pyelonphritis, sepsis, new afib Narrative: This is a cardiology consultation regarding atrial fibrillation rapid ventricular rate. 88-year-old female, many comorbidities, admitted with diagnosis of acute pyelonephritis/sepsis. In this context, it seems that she also had atrial fibrillation with rapid ventricular rate. From notes, it seems that she had received IV beta-blockers and also had some antiemetics. Then EKG converted back to normal sinus rhythm. She was put on anticoagulation. Overall, she states she does not have any clear-cut palpitations. She does have shortness of breath with exertion but has been a long-term problem. Otherwise, no cardiac history per patient she does not have any known coronary disease, PCI or in fact any other cardiac procedures in the past. Review of Systems Review of Systems: Yes all other systems are reviewed and are negative Constitutional: Constitutional: Reports as per HPI and Reports no additional constitutional complaints Eyes: Eyes: Reports as per HPI and Denies no additional eye complaints ENT: Denies system reviewed and no additional complaints, except as documented and Reports as per HPI Cardiovascular: Cardiovascular: Reports as per HPI, Reports no additional cardiovascular complaints, Denies acrocyanosis, Denies cool extremities, Denies chest pain, Denies leg edema, Denies lightheadedness, Denies palpitations and Reports dyspnea Respiratory: Respiratory: Reports as per HPI, Denies no additional respiratory complaints and Reports dyspnea Gastrointestinal: Gastrointestinal: Reports as per HPI and Denies no additional gastrointestinal complaints Genitourinary: Genitourinary: Reports as per HPI Musculoskeletal: Musculoskeletal: Reports no additional musculoskeletal complaints and Reports as per HPI Integumentary/Breasts: Skin/Breast: Reports system reviewed and no additional complaints, except as docu Neurologic: Reports system reviewed and no additional complaints, except as documented and Reports as per HPI Psychiatric: Psychiatric: Reports no additional psychiatric complaints and Reports as per HPI Endocrine: Endocrine: Reports no additional endocrine complaints, Reports as per HPI and Denies palpitations Hematologic/Lymphatic: Hematologic/Lymphatic: Reports no additional hematologic/lymphatic complaints and Reports as per HPI Allergic/Immunologic: Allergic/Immunologic: Reports no additional allergic/immunologic complaints and Reports as per HPI [facility] Past Medical History Medical History Urge incontinence Joint pain Chronic back pain HTN (hypertension) Bleeding hemorrhoid Back pain with history of spinal surgery Family History Pertinent family history: No pertinent family history Social History Social History Household Members: None Housing: Apartment Do you presently have visiting nurse or other home services: Yes ([employer] for housekeeping 2 times per week) Patient Tobacco Use Status: Former Tobacco user Tobacco use type: Cigarette Cigarettes Per Day: 15 Years Smoked: 10 Second Hand Smoke Exposure: No Substance Use Type: Painkillers service: No Meds Allergies Allergy/AdvReac Type Severity Reaction Status Date / Time adhesive tape AdvReac Intermediate Rash Verified 01/07/24 22:03 Active Medications: Current Medications Acetaminophen (Acetaminophen 325 Mg Tablet) 650 mg PO Q6H PRN PRN Reason: Pain, Mild 1-3, h/a, fever Albuterol Sulfate (Albuterol Sulfate 90 Mcg 8 Gm Inhaler) 2 puff INHALE Q6H PRN PRN Reason: wheezing Apixaban (Apixaban 5 Mg Tablet) 5 mg PO BID [facility] Last Admin: 01/08/24 08:10 Dose: 5 mg Atorvastatin Calcium (Atorvastatin Calcium 10 Mg Tablet) 10 mg PO DAILY [facility] Last Admin: 01/08/24 08:09 Dose: 10 mg Docusate Sodium (Docusate Sodium 100 Mg Capsule) 100 mg PO BID PRN PRN Reason: Constipation Last Admin: 01/07/24 22:26 Dose: 100 mg Fluticasone Propionate (Fluticasone Propionate Nasal 16 Gm [place]) 1 spray NOSTRIL-B DAILY [facility] Fluticasone/Vilanterol (Fluticasone/Vilanterol 200/25 Blst.W.Dev) 1 puff INHALE RDAILY [facility] Last Admin: 01/08/24 07:44 Dose: 1 puff Ceftriaxone Sodium 1 gm/ (Sodium Chloride) 50 mls @ 100 mls/hr IV Q24H [facility] Last Infusion: 01/07/24 13:00 Dose: Infused Sodium Chloride (Ns) 1,000 mls @ 100 mls/hr IVCONT .Q10H [facility] Last Admin: 01/08/24 08:13 Dose: 100 mls/hr Losartan Potassium (Losartan Potassium 50 Mg Tablet) 50 mg PO DAILY [facility]; Protocol Last Admin: 01/08/24 08:10 Dose: 50 mg Magnesium Hydroxide (Milk Of Magnesia 30 Ml Oral.Susp) 30 ml PO DAILY PRN PRN Reason: Constipation Naproxen (Naproxen 500 Mg Tablet) 500 mg PO BID [facility] Last Admin: 01/08/24 08:09 Dose: 500 mg Pt Own (Vibegron [ Gemtesa] 75 Mg Tablet) 75 mg PO DAILY [facility] Last Admin: 01/08/24 08:09 Dose: 75 mg Omeprazole (Omeprazole 20 Mg Capsule.Dr) 20 mg PO DAILY@629 [facility] Last Admin: 01/08/24 05:38 Dose: 20 mg Ondansetron HCl (Ondansetron Hcl 4 Mg/2 Ml Vial) 4 mg IVPUSH Q8H PRN PRN Reason: Nausea and Vomiting Oxycodone HCl (Oxycodone Hcl Immed Release 5 Mg Tablet) 5 mg PO TID PRN PRN Reason: Pain, Severe (Pain Scale 7-10) Last Admin: 01/07/24 22:23 Dose: 5 mg Sertraline HCl (Sertraline Hcl 50 Mg Tablet) 50 mg PO BEDTIME [facility] Last Admin: 01/07/24 20:05 Dose: 50 mg Sodium Chloride (0.9 % Sodium Chloride Flush 3 Ml Syringe) 3 ml IVFLUSH QSHIFT [facility] Last Admin: 01/08/24 08:13 Dose: 3 ml Trazodone HCl (Trazodone Hcl 100 Mg Tablet) 100 mg PO BEDTIME [facility] Last Admin: 01/07/24 20:04 Dose: 100 mg Home Medications ?Medication ?Instructions ?Recorded ?Confirmed ?Last Taken ?Type albuterol sulfate 90 mcg/actuation 2 puff PO Q6H PRN wheezing 03/18/21 01/07/24 Unknown History aerosol inhaler amlodipine 10 mg tablet 10 mg PO DAILY 03/18/21 01/07/24 01/06/24 History atorvastatin 10 mg tablet 10 mg PO DAILY 03/18/21 01/07/24 01/06/24 History fluticasone propionate 50 1 spray intranasal DAILY 03/18/21 01/07/24 01/06/24 History mcg/actuation nasal spray,suspension losartan 100 mg tablet 100 mg PO DAILY 03/18/21 01/07/24 01/06/24 History pantoprazole 40 mg tablet,delayed 40 mg PO DAILY@0630 03/18/21 01/07/24 01/06/24 History release sertraline 50 mg tablet 50 mg PO BEDTIME 03/18/21 01/07/24 Unknown History trazodone 100 mg tablet 100 mg PO BEDTIME Insomnia 03/18/21 01/07/24 Unknown History meloxicam 15 mg tablet 15 mg PO DAILY Pain 12/09/23 01/07/24 01/06/24 History oxycodone 5 mg tablet 5 mg PO TID PRN Pain 12/09/23 01/07/24 Unknown History vibegron 75 mg tablet (Gemtesa) 75 mg PO DAILY 12/09/23 01/07/24 01/06/24 History docusate sodium 100 mg capsule 100 mg PO BID PRN Constipation 01/07/24 01/07/24 Unknown History (Colace) fluticasone furoate 200 1 ea inhalation DAILY 01/07/24 01/07/24 01/06/24 History mcg-vilanterol 25 mcg/dose inhalation powder (Breo Ellipta) Physical Exam Vital Signs: Vital Signs: Last Vital Signs Temp 96.8 F 01/08/24 08:00 Pulse 78 01/08/24 08:00 Resp 18 01/08/24 08:00 BP 144/63 H 01/08/24 08:10 Pulse Ox 94 01/08/24 08:00 O2 Del Method Room Air 01/08/24 08:00 O2 Flow Rate 1 01/07/24 04:45 BMI result Body Mass Index 36.3 Const: General: comfortable and no acute distress Orientation/consciousness: patient oriented x3 HEENT: Other: Unremarkable Head: Yes normal to inspection Neck: Neck: Yes normal visual inspection Chest: Chest palpation & inspection: normal inspection of the chest Resp: Auscultation: clear to auscultation bilaterally Cardio: Palpation: normal PMI Heart sounds: S1 normal heart sound present, S2 normal heart sound present, no gallops, no murmurs and no rubs GI: Palpation (GI): Soft to palpation Back/Spine/Pelvis: Other: unremarkable Skin: General skin exam: no rashes or lesions noted Neuro: General: patient oriented x3 Extrem: General: Yes normal to inspection Psych: Mental Status: mental status grossly normal Objective Labs and Meds 01/08/24 05:58 01/08/24 05:58 Lab results: Laboratory Results - last 24 hr 01/07/24 01/07/24 01/08/24 01:21 10:48 05:58 WBC 17.6 H 13.0 H RBC 3.90 L 3.62 L Hgb 12.1 11.4 L Hct 36.1 L 34.0 L MCV 92.6 93.9 MCH 31.0 31.5 MCHC 33.5 33.5 RDW 13.6 13.5 Plt Count 308 264 MPV 9.9 10.1 Immature Gran % (Auto) 1.0 H 1.3 H Neut % (Auto) 78.6 H 67.1 Lymph % (Auto) 8.9 L 14.0 L [place] % (Auto) 10.1 12.4 H Eos % (Auto) 1.1 4.7 H Baso % (Auto) 0.3 0.5 Lymph # (Auto) 1.6 1.8 [place] # (Auto) 1.8 H 1.6 H Eos # (Auto) 0.2 0.6 H Baso # (Auto) 0.1 0.1 Abs Immat Gran (auto) 0.18 H 0.17 H Absolute Neuts (auto) 13.9 H 8.7 H Absolute Nucleated RBC 0.000 0.000 Nucleated RBC % (auto) 0.0 0.0 Smear Tech's Comments VERIFIED VERIFIED Sodium 139 135 Potassium 3.9 3.3 Chloride 102 102 Carbon Dioxide 26 22 Anion Gap 15 14 BUN 23 H 43 H Creatinine 1.24 2.25 H Estim Creat Clear Calc 29.7 16.2 Estimated GFR 41 21 Random Glucose 107 107 Estimat Average Glucose 111 Hemoglobin A1c % 5.5 Calcium 9.1 8.7 Magnesium 1.9 TSH 0.10 L Free T4 0.96 ECG Interpretation: EKG on 06 of January with atrial fibrillation rapid ventricular rate at 01:27/Min. Slight ST depression in the anterolateral/lateral leads. Can not exclude ischemia. However, in the most recent EKG, she is normal sinus rhythm without any clear-cut ischemic changes. Rate of 68/Min. Assessment and Plan (1) Atrial fibrillation with RVR: Status: Acute Plan One of the EKGs had shown atrial fibrillation with rapid ventricular rate but then back in normal sinus rhythm. Troponin levels are unremarkable. Slightly increased cardiac BNP. Echocardiogram with LVEF of 60-65%. Moderate septal hypertrophy. No significant valvular issues. Overall, atrial fibrillation rapid rate in the setting of acute medical issue. May use Toprol-XL 50 mg daily. Anticoagulation. Procedures Date of Service Date of Service: 01/08/24
--- NOTE | 2024-01-08 09:38 | HO.PM.IMPN ---
Subjective Subjective Date of Service: 01/08/24 Interval History: [place] follow up for New onset afib rvr, pyelonephritis/sepsis INterval history: Reports heartburn last night. No palpitations, sob, lightheadedness, chest pain. Physical Exam Vital Signs: Vital Signs: Last Vital Signs Temp 96.8 F 01/08/24 08:00 Pulse 78 01/08/24 08:00 Resp 18 01/08/24 08:00 BP 144/63 H 01/08/24 08:10 Pulse Ox 94 01/08/24 08:00 O2 Del Method Room Air 01/08/24 08:00 O2 Flow Rate 1 01/07/24 04:45 BMI result Body Mass Index 36.3 Constitutional - Awake and Alert, No apparent distress Eyes - PERRLA, EOMI Cardiovascular - S1S2, RRR, No edema Respiratory - Normal lung expansion, Normal respiratory effort, No respiratory distress, CTA bilaterally Gastrointestinal - NT / ND; +BS; No rebound or guarding Extremities - no calf tenderness bilaterally, no swelling Skin - Warm/Dry Neurological - Alert & oriented x3 Psychological - Appropriate affect Objective Data Active Medications Acetaminophen (Acetaminophen 325 Mg Tablet) 650 mg PO Q6H PRN PRN Reason: Pain, Mild 1-3, h/a, fever Albuterol Sulfate (Albuterol Sulfate 90 Mcg 8 Gm Inhaler) 2 puff INHALE Q6H PRN PRN Reason: wheezing Apixaban (Apixaban 5 Mg Tablet) 5 mg PO BID [facility] Last Admin: 01/08/24 08:10 Dose: 5 mg Documented By: LEANNE Atorvastatin Calcium (Atorvastatin Calcium 10 Mg Tablet) 10 mg PO DAILY [facility] Last Admin: 01/08/24 08:09 Dose: 10 mg Documented By: LEANNE Docusate Sodium (Docusate Sodium 100 Mg Capsule) 100 mg PO BID PRN PRN Reason: Constipation Last Admin: 01/07/24 22:26 Dose: 100 mg Documented By: JEREMIAS Comments: barcode torn Fluticasone Propionate (Fluticasone Propionate Nasal 16 Gm [place]) 1 spray NOSTRIL-B DAILY [facility] Fluticasone/Vilanterol (Fluticasone/Vilanterol 200/25 Blst.W.Dev) 1 puff INHALE RDAILY [facility] Last Admin: 01/08/24 07:44 Dose: 1 puff Documented By: LISETH Ceftriaxone Sodium 1 gm/ (Sodium Chloride) 50 mls @ 100 mls/hr IV Q24H [facility] Last Infusion: 01/07/24 13:00 Dose: Infused Documented By: LISA Sodium Chloride (Ns) 1,000 mls @ 100 mls/hr IVCONT .Q10H [facility] Last Admin: 01/08/24 08:13 Dose: 100 mls/hr Documented By: LEANNE Losartan Potassium (Losartan Potassium 50 Mg Tablet) 50 mg PO DAILY [facility]; Protocol Last Admin: 01/08/24 08:10 Dose: 50 mg Documented By: LEANNE Magnesium Hydroxide (Milk Of Magnesia 30 Ml Oral.Susp) 30 ml PO DAILY PRN PRN Reason: Constipation Naproxen (Naproxen 500 Mg Tablet) 500 mg PO BID [facility] Last Admin: 01/08/24 08:09 Dose: 500 mg Documented By: LEANNE Pt Own (Vibegron [ Gemtesa] 75 Mg Tablet) 75 mg PO DAILY [facility] Last Admin: 01/08/24 08:09 Dose: 75 mg Documented By: LEANNE Omeprazole (Omeprazole 20 Mg Capsule.Dr) 20 mg PO DAILY@0630 [facility] Last Admin: 01/08/24 05:38 Dose: 20 mg Documented By: ALCIDES Ondansetron HCl (Ondansetron Hcl 4 Mg/2 Ml Vial) 4 mg IVPUSH Q8H PRN PRN Reason: Nausea and Vomiting Oxycodone HCl (Oxycodone Hcl Immed Release 5 Mg Tablet) 5 mg PO TID PRN PRN Reason: Pain, Severe (Pain Scale 7-10) Last Admin: 01/07/24 22:23 Dose: 5 mg Documented By: JEREMIAS Sertraline HCl (Sertraline Hcl 50 Mg Tablet) 50 mg PO BEDTIME [facility] Last Admin: 01/07/24 20:05 Dose: 50 mg Documented By: KASANDRA Sodium Chloride (0.9 % Sodium Chloride Flush 3 Ml Syringe) 3 ml IVFLUSH QSHIFT [facility] Last Admin: 01/08/24 08:13 Dose: 3 ml Documented By: LEANNE Trazodone HCl (Trazodone Hcl 100 Mg Tablet) 100 mg PO BEDTIME [facility] Last Admin: 01/07/24 20:04 Dose: 100 mg Documented By: KASANDRA Labs 01/08/24 05:58 01/08/24 05:58 Labs: Laboratory Results - last 24 hr 01/07/24 01/07/24 01/08/24 01:21 10:48 05:58 MCV 92.6 93.9 MCH 31.0 31.5 MCHC 33.5 33.5 RDW 13.6 13.5 Plt Count 308 264 MPV 9.9 10.1 Immature Gran % (Auto) 1.0 H 1.3 H Neut % (Auto) 78.6 H 67.1 Lymph % (Auto) 8.9 L 14.0 L [place] % (Auto) 10.1 12.4 H Eos % (Auto) 1.1 4.7 H Baso % (Auto) 0.3 0.5 Lymph # (Auto) 1.6 1.8 [place] # (Auto) 1.8 H 1.6 H Eos # (Auto) 0.2 0.6 H Baso # (Auto) 0.1 0.1 Abs Immat Gran (auto) 0.18 H 0.17 H Absolute Neuts (auto) 13.9 H 8.7 H Absolute Nucleated RBC 0.000 0.000 Nucleated RBC % (auto) 0.0 0.0 Smear Tech's Comments VERIFIED VERIFIED Anion Gap 15 14 Estim Creat Clear Calc 29.7 16.2 Estimated GFR 41 21 Random Glucose 107 107 Estimat Average Glucose 111 Hemoglobin A1c % 5.5 Calcium 9.1 8.7 Magnesium 1.9 TSH 0.10 L Free T4 0.96 Microbiology Microbiology Results: Microbiology 01/07/24 01:21 Urine Culture - Preliminary Urine clean catch - Urine lema top Culture in progress. 01/06/24 22:09 Blood Culture - Preliminary Blood - Venous No growth after 24 hours. 01/06/24 22:09 Blood Culture - Preliminary Blood - Venous No growth after 24 hours. Assessment and Plan (1) New onset atrial fibrillation: Status: Acute (2) Sepsis: Status: Acute (3) Acute pyelonephritis: Status: Acute Plan 88-year-old female with history of hypertension, chronic pain disorder, post-laminectomy syndrome, mood disorder, urge incontinence admitted for management of acute pyelonephritis with sepsis and new onset atrial fibrillation with rvr #New onset atrial fibrillation with RVR -HR's up to 150s overnight, improved to 80s and low 60s following 5mg IVlopressor and antiemetics on admission. EKG to confirm conversion back to NSR pending -CHADS2 Vasc score at least 4. No contraindication to anticoagulation exists, discussed with patient who is in agreement with initiation of Eliquis 5 mg b.i.d. -hold on rate control medications at this time as pt has converted back to NSR with HRs low 60s -mag wnl, tsh 0.10, free t4 0.96- unlikey to be related to afib -echo- normal systolic fx with ef 60-65%, normal diastolic fx for age, no valvular abn. -cardiac diet -cardiology consult -add toprol 50mg -monitor on tele #Acute kidney injury -creat 2.25 01/07, was 1.24 on admission. Likely r/t to lasix ordered in ED -Hold nephrotoxins- unfortunately was given losartan 50mg and naproxen this morning -low sodium diet -IVF -monitor i&O -Follow renal fx/lytes #Acute pyelonephritis with sepsis -Sepsis present on arrival. Now resolved. Leukocytosis trending down. HR WNL -UA with 1+ leukocytes, negative nitrites, positive blood, positive urinary sediment, trace bacteria -IV ceftriaxone (initiated 01/06) (was given single dose of IV Zosyn 01/05) -follow CBC, cultures pending #Subclinical hyperthryoidism -possibly r/t sick euthyroid/illness per Dr. Lopez in endo -TSH 0.10, free t4 0.96 -Per Dr. Lopez, recheck tsh w/ reflex free t4, free t3 (if r/t T3 toxicosis and if sick euthyroid, would be low). Also check TRAB r/o graves, less likely. If free T3 high or high normal and TRAB abn, consider IO123 scan to r/o toxic MNG or thyroid US to see if thyroid enlarged or has appearance of MNG #Elevated BNP -BNP 271, echo shows normal LV systolic function EF 60-65 %, diastolic function normal for age. No valvular abnormality -no further diuresis (was given 20mg IV lasix in ed) #HTN -continue losartan at decreased dose 50mg given soft pressures earlier. Hold amlodipine for now #Chronic pain syndrome/post laminectomy syndrome -continue oxycodone/bowel regimen, meloxicam #Mood disorder -continue home meds #COPD -no exacerbation -continue home inhalers # urge incontinence -continue home meds DVT prophylaxis-Rahel DNR/DNI Patient requires ongoing inpt stay due to new SANTINO requiring IVF, close monitoring of renal fx and lytes. Will also require ongoing IV abx for acute pyelo with sepsis which is improving and cardiac monitoring for rapid afib in setting of infection Quality Stroke Does the patient have a stroke diagnosis?: No VTE Prior VTE?: No VTE Risk Level:: Medical - moderate - high VTE Device Contraindication: Treatment Not Indicated VTE Drug Contraindication: N/A - Med Ordered
--- NOTE | 2024-01-08 10:21 | ECG_ITS ---
Test Reason : rhythm change Blood Pressure : / mmHG Vent. Rate : 072 BPM Atrial Rate : 072 BPM P-R Int : 156 ms QRS Dur : 080 ms QT Int : 408 ms P-R-T Axes : 028 -09 011 degrees QTc Int : 446 ms Normal sinus rhythm Minimal voltage criteria for LVH, may be normal variant ( R in aVL ) Inferior infarct , age undetermined Cannot rule out Anterior infarct , age undetermined Abnormal ECG When compared with ECG of 07-JAN-2024 10:29, No significant change was found Referred By: Terri Galloway Electronically Signed By:GIUSEPPE NUGENT
[2024-01-08] MEDS: cefTRIAXone sodium 1 GM in 0.9 % Sodium Chloride 50 ML IV (11:22)
[2024-01-08] MEDS: Metoprolol Succinate ER 50 MG TAB.ER.24H PO (11:22)
[2024-01-08] MEDS: Fluticasone Propionate Nasal 16 GM SPRAY 1 SPRAY NOSTRIL-B (11:33)
[2024-01-08 15:16] LABS: Free T4 (Free Thyroxine) 0.95 ng/dL (0.71-1.85); Thyroid Stimulating Hormone 1.89 uIU/mL (0.32-4.0)
[2024-01-08] MEDS: oxyCODONE HCl Immed Release 5 MG TABLET PO ×2 (16:08→22:52)
[2024-01-08] MEDS: Apixaban 2.5 MG TABLET PO (20:29)
[2024-01-08] MEDS: Sertraline HCL 50 MG TABLET PO (20:29)
[2024-01-08] MEDS: traZODone HCL 100 MG TABLET PO (20:29)
[2024-01-09] VITALS (9 sets, daily range): BP systolic 126–174; BP diastolic 56–75; PULSE 55–91; RESP 18–20; TEMP 36.2–36.8; O2SAT 93–96
[2024-01-09] MEDS: Omeprazole 20 MG CAPSULE.DR PO (05:50)
[2024-01-09 07:04] LABS: MANUAL DIFF FLAG NO
[2024-01-09 07:11] LABS: Basophils Percent Auto 0.4 % (0-2); Eosinophils Absolute Auto 0.6 X10*3/uL (0.0-0.4); Eosinophils Percent Auto 5.2 % (0-4); Hematocrit 32.1 % (37.0-47.0); Hemoglobin 10.7 g/dl (12.0-16.0); Imm Gran Abs Auto 0.14 X10*3/uL (0.00-0.03); Imm Gran Pct Auto 1.3 % (0.0-0.4); Lymphocytes Absolute Auto 1.6 X10*3/uL (1.2-4.9); Lymphocytes Percent Auto 14.8 % (20-40); Mean Corpuscular HGB Conc 33.3 g/dl (31.0-35.0); Mean Corpuscular Hemoglobin 30.5 pg (27.0-33.0); Mean Corpuscular Volume 91.5 fL (80.0-98.0); Mean Platelet Volume 10.5 fL (9.4-12.3); Monocytes Absolute Auto 1.5 X10*3/uL (0.1-1.2); Monocytes Percent Auto 13.5 % (2-11); Neutrophils Percent Auto 64.8 % (45-73); Platelet Count 348 X10*3/uL (160-400); Red Blood Count 3.51 X10*6/uL (4.20-5.50); Red Cell Distribution Width 13.3 % (11.0-16.0); White Blood Count 10.8 X10*3/uL (4.8-10.8)
[2024-01-09 07:24] LABS: Anion Gap 13 (12-20); Blood Urea Nitrogen 44 mg/dL (9-16); Carbon Dioxide 20 mmol/L (22-29); Chloride 104 mmol/L (96-108); Creatinine Clr Calc Pharmacy 20.9; Estimated Glomerular Filt Rate 27; Glucose Random 95 mg/dL (60-115); Potassium 3.4 mmol/L (3.3-5.1); Sodium 134 mmol/L (135-145)
[2024-01-09] MEDS: Fluticasone/Vilanterol 200/25 BLST.W.DEV 1 PUFF INHALE (07:53)
[2024-01-09] MEDS: Atorvastatin Calcium 10 MG TABLET PO (08:10)
[2024-01-09] MEDS: Metoprolol Succinate ER 50 MG TAB.ER.24H PO (08:11)
[2024-01-09] MEDS: 0.9 % Sodium Chloride Flush 3 ML SYRINGE IVFLUSH ×3 (08:11→20:32)
[2024-01-09] MEDS: PT OWN (Vibegron [Gemtesa] 75 mg tablet) 75 EACH PO (08:11)
[2024-01-09] MEDS: Apixaban 2.5 MG TABLET PO ×2 (08:11→20:32)
[2024-01-09] MEDS: Fluticasone Propionate Nasal 16 GM SPRAY 1 SPRAY NOSTRIL-B (08:12)
[2024-01-09] MEDS: cefTRIAXone sodium 1 GM in 0.9 % Sodium Chloride 50 ML IV (11:24)
--- NOTE | 2024-01-09 11:55 | ECG_ITS ---
Test Reason : RHYTHM CHANGE Blood Pressure : / mmHG Vent. Rate : 058 BPM Atrial Rate : 058 BPM P-R Int : 162 ms QRS Dur : 080 ms QT Int : 466 ms P-R-T Axes : 052 -08 010 degrees QTc Int : 457 ms Sinus bradycardia Nonspecific T wave abnormality Abnormal ECG When compared with ECG of 07-JAN-2024 02:42, Sinus rhythm has replaced Atrial fibrillation Vent. rate has decreased BY [address] no longer depressed in Anterolateral leads Referred By: Terri Galloway Electronically Signed By:GIUSEPPE NUGENT
--- NOTE | 2024-01-09 12:39 | HO.PM.IMPN ---
Subjective Subjective Date of Service: 01/09/24 Interval History: Seen and examined this morning Follow-up for pyelonephritis, AFib, SANTINO Feeling better denies shortness of breath, abdominal pain, palpitations Review of Systems Review of Systems: Yes all other systems are reviewed and are negative Constitutional Constitutional: Denies chills and Denies fever(s) Cardiovascular Cardiovascular: Denies chest pain, Denies palpitations and Denies dyspnea Respiratory Respiratory: Denies cough and Denies dyspnea Endocrine Endocrine: Denies palpitations Physical Exam Vital Signs: Vital Signs: Last Vital Signs Temp 97.3 F 01/09/24 10:40 Pulse 57 01/09/24 10:40 Resp 18 01/09/24 10:40 BP 157/65 H 01/09/24 10:40 Pulse Ox 96 01/09/24 10:40 O2 Del Method Room Air 01/09/24 10:40 O2 Flow Rate 1 01/07/24 04:45 BMI result Body Mass Index 36.3 Const: General: cooperative, comfortable, no acute distress, alert and awake Nutritional Appearance: overweight Orientation/consciousness: patient oriented x3 Resp: Effort & Inspection: normal respiratory effort, able to speak in complete sentences, no respiratory distress and no use of accessory muscles Cardio: Rate: regular rate GI: Inspection: No distended Palpation (GI): Soft to palpation and nontender Neuro: General: patient oriented x3, moves all extremities and CN's II-XI intact bilaterally Extrem: General: Yes no pedal edema Objective Data Active Medications Acetaminophen (Acetaminophen 325 Mg Tablet) 650 mg PO Q6H PRN PRN Reason: Pain, Mild 1-3, h/a, fever Albuterol Sulfate (Albuterol Sulfate 90 Mcg 8 Gm Inhaler) 2 puff INHALE Q6H PRN PRN Reason: wheezing Apixaban (Apixaban 2.5 Mg Tablet) 2.5 mg PO BID [facility] Last Admin: 01/09/24 08:11 Dose: 2.5 mg Documented By: LEANNE Atorvastatin Calcium (Atorvastatin Calcium 10 Mg Tablet) 10 mg PO DAILY [facility] Last Admin: 01/09/24 08:10 Dose: 10 mg Documented By: LEANNE Calcium Carbonate (Calcium Carbonate 750 Mg Tab.Chew) 750 mg PO Q4H PRN PRN Reason: Heartburn Docusate Sodium (Docusate Sodium 100 Mg Capsule) 100 mg PO BID PRN PRN Reason: Constipation Last Admin: 01/07/24 22:26 Dose: 100 mg Documented By: JEREMIAS Comments: barcode torn Fluticasone Propionate (Fluticasone Propionate Nasal 16 Gm [place]) 1 spray NOSTRIL-B DAILY [facility] Last Admin: 01/09/24 08:12 Dose: 1 spray Documented By: LEANNE Fluticasone/Vilanterol (Fluticasone/Vilanterol 200/25 Blst.W.Dev) 1 puff INHALE RDAILY [facility] Last Admin: 01/09/24 07:53 Dose: 1 puff Documented By: GUNJAN Ceftriaxone Sodium 1 gm/ (Sodium Chloride) 50 mls @ 100 mls/hr IV Q24H [facility] Last Admin: 01/09/24 11:24 Dose: 100 mls/hr Documented By: LEANNE Sodium Chloride (Ns) 1,000 mls @ 100 mls/hr IVCONT .Q10H [facility] Last Infusion: 01/09/24 08:59 Dose: Infused Documented By: LEANNE Losartan Potassium (Losartan Potassium 50 Mg Tablet) 50 mg PO DAILY [facility]; Protocol Last Admin: 01/08/24 08:10 Dose: 50 mg Documented By: LEANNE Magnesium Hydroxide (Milk Of Magnesia 30 Ml Oral.Susp) 30 ml PO DAILY PRN PRN Reason: Constipation Metoprolol Succinate (Metoprolol Succinate Er 50 Mg Tab.Er.24h) 50 mg PO DAILY [facility]; Protocol Last Admin: 01/09/24 08:11 Dose: 50 mg Documented By: LEANNE Naproxen (Naproxen 500 Mg Tablet) 500 mg PO BID [facility] Last Admin: 01/08/24 08:09 Dose: 500 mg Documented By: LEANNE Pt Own (Vibegron [ Gemtesa] 75 Mg Tablet) 75 mg PO DAILY [facility] Last Admin: 01/09/24 08:11 Dose: 75 mg Documented By: LEANNE Omeprazole (Omeprazole 20 Mg Capsule.Dr) 20 mg PO DAILY@0630 [facility] Last Admin: 01/09/24 05:50 Dose: 20 mg Documented By: DUDLEY Ondansetron HCl (Ondansetron Hcl 4 Mg/2 Ml Vial) 4 mg IVPUSH Q8H PRN PRN Reason: Nausea and Vomiting Oxycodone HCl (Oxycodone Hcl Immed Release 5 Mg Tablet) 5 mg PO TID PRN PRN Reason: Pain, Severe (Pain Scale 7-10) Last Admin: 01/08/24 22:52 Dose: 5 mg Documented By: ALMA Sertraline HCl (Sertraline Hcl 50 Mg Tablet) 50 mg PO BEDTIME [facility] Last Admin: 01/08/24 20:29 Dose: 50 mg Documented By: ALMA Sodium Chloride (0.9 % Sodium Chloride Flush 3 Ml Syringe) 3 ml IVFLUSH QSHIFT [facility] Last Admin: 01/09/24 08:11 Dose: 3 ml Documented By: LEANNE Trazodone HCl (Trazodone Hcl 100 Mg Tablet) 100 mg PO BEDTIME [facility] Last Admin: 01/08/24 20:29 Dose: 100 mg Documented By: ALMA Labs 01/09/24 06:47 01/09/24 06:47 Labs: Laboratory Results - last 24 hr 01/08/24 01/09/24 14:23 06:47 MCV 91.5 MCH 30.5 MCHC 33.3 RDW 13.3 Plt Count 348 D MPV 10.5 Immature Gran % (Auto) 1.3 H Neut % (Auto) 64.8 Lymph % (Auto) 14.8 L [place] % (Auto) 13.5 H Eos % (Auto) 5.2 H Baso % (Auto) 0.4 Lymph # (Auto) 1.6 [place] # (Auto) 1.5 H Eos # (Auto) 0.6 H Baso # (Auto) 0.0 Abs Immat Gran (auto) 0.14 H Absolute Neuts (auto) 7.0 Absolute Nucleated RBC 0.000 Nucleated RBC % (auto) 0.0 Anion Gap 13 Estim Creat Clear Calc 20.9 Estimated GFR 27 Random Glucose 95 Calcium 8.0 L D TSH 1.89 Free T4 0.95 Microbiology Microbiology Results: Microbiology 01/07/24 01:21 Urine Culture - Preliminary Urine clean catch - Urine lema top Gram negative lexie Streptococcus viridans group 01/06/24 22:09 Blood Culture - Preliminary Blood - Venous No growth after 48 hours. 01/06/24 22:09 Blood Culture - Preliminary Blood - Venous No growth after 48 hours. Assessment and Plan (1) New onset atrial fibrillation: Status: Acute (2) Sepsis: Status: Acute (3) Acute pyelonephritis: Status: Acute Plan 88-year-old female with history of hypertension, chronic pain disorder, post-laminectomy syndrome, mood disorder, urge incontinence admitted for management of acute pyelonephritis with sepsis and new onset atrial fibrillation with rvr #New onset atrial fibrillation with RVR converted back to NSR CHADS2 Vasc score at least 4. No contraindication to anticoagulation exists, discussed with patient who is in agreement with initiation of Eliquis 5 mg b.i.d. On Toprol-XL 50 mg daily Cardiology following -echo- normal systolic fx with ef 60-65%, normal diastolic fx for age, no valvular abn. #Acute kidney injury -creat 2.25 01/07, was 1.24 on admission. Likely r/t to lasix ordered in ED. improving, creatinine down to 1.75 Hold losartan 50mg, naproxen Continue IVF #Acute pyelonephritis with sepsis -Sepsis present on arrival. Now resolved. Leukocytosis trending down. HR WNL -UA with 1+ leukocytes, negative nitrites, positive blood, positive urinary sediment, trace bacteria -IV ceftriaxone (initiated 01/06) (was given single dose of IV Zosyn 01/05) -follow CBC, urine culture pending, blood cultures negative to date #Subclinical hyperthryoidism -possibly r/t sick euthyroid/illness per Dr. Lopez in endo -TSH 0.10, free t4 0.96 -Per Dr. Lopez, recheck tsh w/ reflex free t4, free t3- now normal free t3 pending; TSH receptor antibody pending #Elevated BNP -BNP 271, echo shows normal LV systolic function EF 60-65 %, diastolic function normal for age. No valvular abnormality -no further diuresis (was given 20mg IV lasix in ed) #HTN -hold losartan for SANTINO Hold amlodipine for now Continue Toprol-XL #Chronic pain syndrome/post laminectomy syndrome -continue oxycodone/bowel regimen meloxicam is formulary, formulary equivalent naproxen on hold for SANTINO #Mood disorder -continue home meds #COPD -no exacerbation -continue home inhalers # urge incontinence -continue home meds DVT prophylaxis-Eliquis DNR/DNI Patient requires ongoing inpt stay due to new SANTINO requiring IVF, close monitoring of renal fx and lytes. Will also require ongoing IV abx for acute pyelo with sepsis which is improving and cardiac monitoring for rapid afib in setting of infection Quality Stroke Does the patient have a stroke diagnosis?: No VTE Prior VTE?: No VTE Risk Level:: Medical - moderate - high VTE Device Contraindication: Treatment Not Indicated VTE Drug Contraindication: N/A - Med Ordered
[2024-01-09] MEDS: 0.9 % Sodium Chloride 1,000 ML 100 ML IVCONT ×2 (16:33→20:15)
[2024-01-09] MEDS: traZODone HCL 100 MG TABLET PO (20:32)
[2024-01-09] MEDS: oxyCODONE HCl Immed Release 5 MG TABLET PO (20:32)
[2024-01-09] MEDS: Sertraline HCL 50 MG TABLET PO (20:32)
[2024-01-10] VITALS (11 sets, daily range): BP systolic 108–185; BP diastolic 58–92; PULSE 59–69; RESP 17–18; TEMP 35.9–36.8; O2SAT 94–98
[2024-01-10 01:18] LABS: Triiodothyronine T3 Free 1.9 pg/mL (2.3-4.2)
[2024-01-10] MEDS: Omeprazole 20 MG CAPSULE.DR PO (06:13)
[2024-01-10] MEDS: 0.9 % Sodium Chloride 1,000 ML 100 ML IVCONT (06:14)
[2024-01-10 07:41] LABS: Anion Gap 10 (12-20); Blood Urea Nitrogen 23 mg/dL (9-16); Calcium 8.8 mg/dL (8.4-10.2); Carbon Dioxide 23 mmol/L (22-29); Chloride 114 mmol/L (96-108); Creatinine Clr Calc Pharmacy 44.1; Estimated Glomerular Filt Rate > 60; Glucose Random 102 mg/dL (60-115); Potassium 3.6 mmol/L (3.3-5.1); Sodium 143 mmol/L (135-145)
--- NOTE | 2024-01-10 07:54 | P.CDIM_ITS ---
PROVIDER RESPONSE TEXT: To clarify, the appropriate diagnosis supported by the clinical indicators: Overweight QUERY TEXT: PHYSICIAN'S DOCUMENTATION REQUEST Date of Query: 01/10/2024 07:44 AM EDT Patient Name: Brenda Wolf Admit Date: 01/07/2024 Dear Blanca Garcia, A review of the medical record indicates additional documentation may be needed. Please review below and update the documentation accordingly. Clinical Indicators: Height: 4ft 11in Weight: 81.5kg BMI: 36.3 Other Clinical Notes Supporting Significance of the BMI: Nursing notes Height and Weight: Obese class II If possible, please provide an associated diagnosis related to the abnormal BMI, such as: Overweight Obesity Due to excess calories Obesity Due to other cause Specify the other cause Other (explain) Clinically unable to determine (explain) Thank you, Dee Feldman, CCS, CDIS Use of terms such as suspected, likely, concern for, or probable (associated with a specific diagnosi s that is being evaluated, monitored, or treated as if it exists) are acceptable and can be coded in the inpatient se tting, when documented at the time of discharge. Please use your independent medical judgment in providing your response. THIS QUERY IS PART OF THE PERMANENT MEDICAL RECORD
[2024-01-10] MEDS: Fluticasone/Vilanterol 200/25 BLST.W.DEV 1 PUFF INHALE (08:21)
[2024-01-10] MEDS: Fluticasone Propionate Nasal 16 GM SPRAY 1 SPRAY NOSTRIL-B (08:54)
[2024-01-10] MEDS: PT OWN (Vibegron [Gemtesa] 75 mg tablet) 75 EACH PO (08:55)
[2024-01-10] MEDS: Atorvastatin Calcium 10 MG TABLET PO (08:55)
[2024-01-10] MEDS: Apixaban 2.5 MG TABLET PO (08:56)
[2024-01-10] MEDS: Metoprolol Succinate ER 50 MG TAB.ER.24H PO (08:56)
--- NOTE | 2024-01-10 11:49 | PM.PNCARD ---
Subjective Subjective Date of Service: 01/10/24 Interval history: It seems that she got somewhat short of breath and after discussing with the hospitalist, it is felt because of fluid overload from IV fluids. Otherwise, doing okay. Review of Systems Review of Systems Yes all other systems are reviewed and are negative Constitutional: Reports as per HPI and Reports no additional constitutional complaints Eyes: Reports as per HPI and Denies no additional eye complaints Denies system reviewed and no additional complaints, except as documented and Reports as per HPI Cardiovascular: Reports as per HPI, Reports no additional cardiovascular complaints, Denies acrocyanosis, Denies cool extremities, Denies chest pain, Denies leg edema, Denies lightheadedness, Denies palpitations and Reports dyspnea Respiratory: Reports as per HPI, Denies no additional respiratory complaints and Reports dyspnea Gastrointestinal: Reports as per HPI and Denies no additional gastrointestinal complaints Genitourinary: Reports as per HPI Musculoskeletal: Reports no additional musculoskeletal complaints and Reports as per HPI Skin/Breast: Reports system reviewed and no additional complaints, except as docu Reports system reviewed and no additional complaints, except as documented and Reports as per HPI Psychiatric: Reports no additional psychiatric complaints and Reports as per HPI Endocrine: Reports no additional endocrine complaints, Reports as per HPI and Denies palpitations Hematologic/Lymphatic: Reports no additional hematologic/lymphatic complaints and Reports as per HPI Allergic/Immunologic: Reports no additional allergic/immunologic complaints and Reports as per HPI Physical Exam Vital Signs: Last Vital Signs Temp 97.8 F 01/10/24 11:34 Pulse 61 01/10/24 11:34 Resp 18 01/10/24 11:34 BP 185/77 H 01/10/24 11:34 Pulse Ox 95 01/10/24 11:34 O2 Del Method Room Air 01/10/24 11:34 O2 Flow Rate 1 01/07/24 04:45 BMI result Body Mass Index 36.3 Const General: comfortable and no acute distress Orientation/consciousness: patient oriented x3 HEENT Other: Unremarkable Head: Yes normal to inspection Neck Neck: Yes normal visual inspection Chest Chest palpation & inspection: normal inspection of the chest Resp Auscultation: crackles Cardio Palpation: normal PMI Heart sounds: S1 normal heart sound present, S2 normal heart sound present, no gallops, no murmurs and no rubs GI Palpation (GI): Soft to palpation Back/Spine/Pelvis Other: unremarkable Skin General skin exam: no rashes or lesions noted Neuro General: patient oriented x3 Extrem General: Yes normal to inspection Psych Mental Status: mental status grossly normal Objective Labs and Meds 01/09/24 06:47 01/10/24 07:05 Lab results: Laboratory Results - last 24 hr 01/08/24 01/10/24 14:23 07:05 Hold Purple Top SEE NOTE Sodium 143 Potassium 3.6 Chloride 114 H Carbon Dioxide 23 Anion Gap 10 L BUN 23 H Creatinine 0.83 Estim Creat Clear Calc 44.1 Estimated GFR > 60 Random Glucose 102 Calcium 8.8 D Free T3 1.9 L Progress Note: A&P Assessment and plan (1) Atrial fibrillation with RVR: Status: Acute Assessment and Plan: No recurrent issues. Continue beta-blockers and anticoagulation. (2) Acute congestive heart failure: Status: Acute Assessment and Plan: Thought to be possibly related to IV fluids. Can try some diuretics. Time Spent With Patient Time: Total time managing care of this patient today ____ minutes. Progress Note: Quality Stroke Does the patient have a stroke diagnosis?: No Procedures Date of Service Date of Service: 01/10/24
[2024-01-10] MEDS: cefTRIAXone sodium 1 GM in 0.9 % Sodium Chloride 50 ML IV (12:17)
[2024-01-10] MEDS: Furosemide 20 MG/2 ML VIAL IVPUSH (12:17)
--- NOTE | 2024-01-10 13:22 | P.PNIM_ITS ---
Subjective Subjective Date of Service: 01/10/24 Interval History: Seen and examined this morning Follow-up for SANTINO, pyelonephritis Reporting some shortness of breath this morning, no cough Review of Systems Review of Systems: Yes all other systems are reviewed and are negative Constitutional Constitutional: Denies fever(s) Cardiovascular Cardiovascular: Denies chest pain Gastrointestinal Gastrointestinal: Denies abdominal pain Physical Exam 2 Vital Signs: Vital Signs: Last Vital Signs Temp 97.8 F 01/10/24 11:34 Pulse 61 01/10/24 11:34 Resp 18 01/10/24 11:34 BP 185/77 H 01/10/24 12:17 Pulse Ox 95 01/10/24 11:34 O2 Del Method Room Air 01/10/24 11:34 O2 Flow Rate 1 01/07/24 04:45 BMI result Body Mass Index 36.3 Const: General: cooperative, comfortable, no acute distress, alert and awake Nutritional Appearance: overweight Orientation/consciousness: patient oriented x3 Resp: Other: b/l crackles Effort & Inspection: normal respiratory effort, able to speak in complete sentences, no respiratory distress and no use of accessory muscles Cardio: Rate: regular rate GI: Inspection: No distended Palpation (GI): Soft to palpation and nontender Neuro: General: patient oriented x3, moves all extremities and CN's II-XI intact bilaterally Extrem: General: Yes no pedal edema Objective Data Active Medications Acetaminophen (Acetaminophen 325 Mg Tablet) 650 mg PO Q6H PRN PRN Reason: Pain, Mild 1-3, h/a, fever Albuterol Sulfate (Albuterol Sulfate 90 Mcg 8 Gm Inhaler) 2 puff INHALE Q6H PRN PRN Reason: wheezing Apixaban (Apixaban 5 Mg Tablet) 5 mg PO BID [facility] Atorvastatin Calcium (Atorvastatin Calcium 10 Mg Tablet) 10 mg PO DAILY [facility] Last Admin: 01/10/24 08:55 Dose: 10 mg Documented By: SANIYA Calcium Carbonate (Calcium Carbonate 750 Mg Tab.Chew) 750 mg PO Q4H PRN PRN Reason: Heartburn Docusate Sodium (Docusate Sodium 100 Mg Capsule) 100 mg PO BID PRN PRN Reason: Constipation Last Admin: 01/07/24 22:26 Dose: 100 mg Documented By: JEREMIAS Comments: barcode torn Fluticasone Propionate (Fluticasone Propionate Nasal 16 Gm [place]) 1 spray NOSTRIL-B DAILY [facility] Last Admin: 01/10/24 08:54 Dose: 1 spray Documented By: SANIYA Fluticasone/Vilanterol (Fluticasone/Vilanterol 200/25 Blst.W.Dev) 1 puff INHALE RDAILY [facility] Last Admin: 01/10/24 08:21 Dose: 1 puff Documented By: GUNJAN Ceftriaxone Sodium 1 gm/ (Sodium Chloride) 50 mls @ 100 mls/hr IV Q24H [facility] Last Infusion: 01/10/24 12:49 Dose: Infused Documented By: SANIYA Losartan Potassium (Losartan Potassium 50 Mg Tablet) 50 mg PO DAILY [facility]; Protocol Last Admin: 01/08/24 08:10 Dose: 50 mg Documented By: LEANNE Magnesium Hydroxide (Milk Of Magnesia 30 Ml Oral.Susp) 30 ml PO DAILY PRN PRN Reason: Constipation Metoprolol Succinate (Metoprolol Succinate Er 50 Mg Tab.Er.24h) 50 mg PO DAILY [facility]; Protocol Last Admin: 01/10/24 08:56 Dose: 50 mg Documented By: SANIYA Pt Own (Vibegron [ Gemtesa] 75 Mg Tablet) 75 mg PO DAILY [facility] Last Admin: 01/10/24 08:55 Dose: 75 mg Documented By: SANIYA Omeprazole (Omeprazole 20 Mg Capsule.Dr) 20 mg PO DAILY@0630 [facility] Last Admin: 01/10/24 06:13 Dose: 20 mg Documented By: ALMA Ondansetron HCl (Ondansetron Hcl 4 Mg/2 Ml Vial) 4 mg IVPUSH Q8H PRN PRN Reason: Nausea and Vomiting Oxycodone HCl (Oxycodone Hcl Immed Release 5 Mg Tablet) 5 mg PO TID PRN PRN Reason: Pain, Severe (Pain Scale 7-10) Last Admin: 01/09/24 20:32 Dose: 5 mg Documented By: ALMA Sertraline HCl (Sertraline Hcl 50 Mg Tablet) 50 mg PO BEDTIME [facility] Last Admin: 01/09/24 20:32 Dose: 50 mg Documented By: ALMA Sodium Chloride (0.9 % Sodium Chloride Flush 3 Ml Syringe) 3 ml IVFLUSH QSHIFT [facility] Last Admin: 01/10/24 08:00 Dose: Not Given Documented By: SANIYA Non-Admin Reason: IV Running Trazodone HCl (Trazodone Hcl 100 Mg Tablet) 100 mg PO BEDTIME [facility] Last Admin: 01/09/24 20:32 Dose: 100 mg Documented By: ALMA Labs 01/09/24 06:47 01/10/24 07:05 Labs: Laboratory Results - last 24 hr 01/08/24 01/10/24 14:23 07:05 Hold Purple Top SEE NOTE Anion Gap 10 L Estim Creat Clear Calc 44.1 Estimated GFR > 60 Random Glucose 102 Calcium 8.8 D Free T3 1.9 L Microbiology Microbiology Results: Microbiology 01/07/24 01:21 Urine Culture - Final Urine clean catch - Urine lema top Klebsiella aerogenes Streptococcus viridans group Assessment and Plan (1) Acute congestive heart failure: Status: Acute (2) Sepsis: Status: Acute (3) Acute pyelonephritis: Status: Acute (4) New onset atrial fibrillation: Status: Acute Plan 88-year-old female with history of hypertension, chronic pain disorder, post- laminectomy syndrome, mood disorder, urge incontinence admitted for management of acute pyelonephritis with sepsis and new onset atrial fibrillation with rvr New onset atrial fibrillation with RVR converted back to NSR CHADS2 Vasc score at least 4. No contraindication to anticoagulation exists, discussed with patient who is in agreement with initiation of Eliquis 5 mg b.i.d. On Toprol-XL 50 mg daily Cardiology following -echo- normal systolic fx with ef 60-65%, normal diastolic fx for age, no valvular abn. Acute kidney injury resolved with IVF Hold losartan 50mg, naproxen acute CHF due to IVF d/c IVF lasix x1 not requiring oxygen Acute pyelonephritis with sepsis Sepsis present on arrival. Now resolved. Leukocytosis trending down. HR WNL Urine culture growing Klebsiella aerogenes, Streptococcus viridans continue IV ceftriaxone (initiated 01/06) (was given single dose of IV Zosyn 01/05) Blood cultures negative to date Subclinical hyperthryoidism likely sick euthyroid/illness per Dr. Lopez in endo initially TSH 0.10, free t4 0.[address] Lopez, recheck tsh w/ reflex free t4, TSH and free t4 normal, free t3 slightly low TSH receptor antibody pending HTN hold losartan for SANTINO resume norvasc 5 mg, increase to home dose 10 mg if bp still high Continue Toprol-XL Chronic pain syndrome/post laminectomy syndrome continue oxycodone/bowel regimen meloxicam is formulary, formulary equivalent naproxen on hold for SANTINO Mood disorder -continue home meds COPD -no exacerbation -continue home inhalers urge incontinence -continue home meds DVT prophylaxis-Rahel DNR/DNI Patient requires ongoing inpt stay due to IV antibiotics, CHF requiring IV Lasix Quality Stroke Does the patient have a stroke diagnosis?: No VTE Prior VTE?: No VTE Risk Level:: Medical - moderate - high VTE Device Contraindication: Treatment Not Indicated VTE Drug Contraindication: N/A - Med Ordered
[2024-01-10] MEDS: amLODIPine Besylate 5 MG TABLET PO ×2 (14:22→16:32)
--- NOTE | 2024-01-10 16:06 | MHC.CM.PN ---
Pt is not yet ready for DC, she requires IV ABX and IV diuretic, DCP: home with services, CM to follow for DC needs.
[2024-01-10] MEDS: Acetaminophen 325 MG TABLET 650 MG PO (16:32)
[2024-01-10] MEDS: 0.9 % Sodium Chloride Flush 3 ML SYRINGE IVFLUSH ×2 (16:33→20:18)
[2024-01-10] MEDS: oxyCODONE HCl Immed Release 5 MG TABLET PO (20:17)
[2024-01-10] MEDS: traZODone HCL 100 MG TABLET PO (20:17)
[2024-01-10] MEDS: Sertraline HCL 50 MG TABLET PO (20:18)
[2024-01-10] MEDS: Apixaban 5 MG TABLET PO (20:18)
[2024-01-10] MEDS: guaiFENesin 200 MG/10 ML 10 ML LIQUID PO (20:38)
[2024-01-11] VITALS (9 sets, daily range): BP systolic 108–140; BP diastolic 50–80; PULSE 60–74; RESP 18–20; TEMP 35.8–37.1; O2SAT 92–96
[2024-01-11] MEDS: Acetaminophen 325 MG TABLET 650 MG PO (05:55)
[2024-01-11] MEDS: Omeprazole 20 MG CAPSULE.DR PO (05:55)
[2024-01-11] MEDS: Fluticasone/Vilanterol 200/25 BLST.W.DEV 1 PUFF INHALE (07:38)
[2024-01-11 08:19] LABS: Anion Gap 16 (12-20); Blood Urea Nitrogen 11 mg/dL (9-16); Calcium 9.2 mg/dL (8.4-10.2); Carbon Dioxide 23 mmol/L (22-29); Chloride 108 mmol/L (96-108); Creatinine Clr Calc Pharmacy 49.5; Estimated Glomerular Filt Rate > 60; Glucose Random 114 mg/dL (60-115); Potassium 3.6 mmol/L (3.3-5.1); Sodium 143 mmol/L (135-145)
[2024-01-11] MEDS: Fluticasone Propionate Nasal 16 GM SPRAY 1 SPRAY NOSTRIL-B (08:36)
[2024-01-11] MEDS: 0.9 % Sodium Chloride Flush 3 ML SYRINGE IVFLUSH (08:37)
[2024-01-11] MEDS: PT OWN (Vibegron [Gemtesa] 75 mg tablet) 75 EACH PO (08:37)
[2024-01-11] MEDS: Atorvastatin Calcium 10 MG TABLET PO (08:37)
[2024-01-11] MEDS: Metoprolol Succinate ER 50 MG TAB.ER.24H PO (08:37)
[2024-01-11] MEDS: Apixaban 5 MG TABLET PO ×2 (08:37→20:06)
[2024-01-11] MEDS: amLODIPine Besylate 10 MG TABLET PO (08:37)
[2024-01-11] MEDS: Furosemide 20 MG/2 ML VIAL IVPUSH (10:23)
[2024-01-11] MEDS: guaiFENesin 200 MG/10 ML 10 ML LIQUID PO ×2 (10:27→20:06)
--- NOTE | 2024-01-11 12:03 | P.PNIM_ITS ---
Subjective Subjective Date of Service: 01/11/24 Interval History: Seen and examined this morning Follow-up for pyelo, SANTINO Feeling more short of breath overnight, no cough, no chest pain Review of Systems Review of Systems: Yes all other systems are reviewed and are negative Constitutional Constitutional: Denies fever(s) Physical Exam 2 Vital Signs: Vital Signs: Last Vital Signs Temp 97.8 F 01/11/24 11:31 Pulse 74 01/11/24 11:31 Resp 18 01/11/24 11:31 BP 140/80 H 01/11/24 11:31 Pulse Ox 96 01/11/24 11:31 O2 Del Method Room Air 01/11/24 11:31 O2 Flow Rate 1 01/07/24 04:45 BMI result Body Mass Index 36.3 Const: General: cooperative, comfortable, no acute distress, alert and awake Nutritional Appearance: overweight Orientation/consciousness: patient oriented x3 Resp: Other: b/l crackles Effort & Inspection: normal respiratory effort, able to speak in complete sentences, no respiratory distress and no use of accessory muscles Cardio: Rate: regular rate GI: Inspection: No distended Palpation (GI): Soft to palpation and nontender Neuro: General: patient oriented x3, moves all extremities and CN's II-XI intact bilaterally Extrem: General: Yes no pedal edema Objective Data Active Medications Acetaminophen (Acetaminophen 325 Mg Tablet) 650 mg PO Q6H PRN PRN Reason: Pain, Mild 1-3, h/a, fever Last Admin: 01/11/24 05:55 Dose: 650 mg Documented By: ALMA Albuterol Sulfate (Albuterol Sulfate 90 Mcg 8 Gm Inhaler) 2 puff INHALE Q6H PRN PRN Reason: wheezing Amlodipine Besylate (Amlodipine Besylate 10 Mg Tablet) 10 mg PO DAILY [facility]; Protocol Last Admin: 01/11/24 08:37 Dose: 10 mg Documented By: SANIYA Apixaban (Apixaban 5 Mg Tablet) 5 mg PO BID [facility] Last Admin: 01/11/24 08:37 Dose: 5 mg Documented By: SANIYA Atorvastatin Calcium (Atorvastatin Calcium 10 Mg Tablet) 10 mg PO DAILY [facility] Last Admin: 01/11/24 08:37 Dose: 10 mg Documented By: SANIYA Calcium Carbonate (Calcium Carbonate 750 Mg Tab.Chew) 750 mg PO Q4H PRN PRN Reason: Heartburn Docusate Sodium (Docusate Sodium 100 Mg Capsule) 100 mg PO BID PRN PRN Reason: Constipation Last Admin: 01/07/24 22:26 Dose: 100 mg Documented By: JEREMIAS Comments: barcode torn Fluticasone Propionate (Fluticasone Propionate Nasal 16 Gm [place]) 1 spray NOSTRIL-B DAILY [facility] Last Admin: 01/11/24 08:36 Dose: 1 spray Documented By: SANIYA Fluticasone/Vilanterol (Fluticasone/Vilanterol 200/25 Blst.W.Dev) 1 puff INHALE RDAILY [facility] Last Admin: 01/11/24 07:38 Dose: 1 puff Documented By: KULWINDER Guaifenesin (Guaifenesin 200 Mg/10 Ml 10 Ml Liquid) 10 ml PO Q4H PRN PRN Reason: Cough Last Admin: 01/11/24 10:27 Dose: 10 ml Documented By: SANIYA Ceftriaxone Sodium 1 gm/ (Sodium Chloride) 50 mls @ 100 mls/hr IV Q24H [facility] Last Infusion: 01/10/24 12:49 Dose: Infused Documented By: SANIYA Losartan Potassium (Losartan Potassium 50 Mg Tablet) 50 mg PO DAILY [facility]; Protocol Last Admin: 01/08/24 08:10 Dose: 50 mg Documented By: LEANNE Magnesium Hydroxide (Milk Of Magnesia 30 Ml Oral.Susp) 30 ml PO DAILY PRN PRN Reason: Constipation Metoprolol Succinate (Metoprolol Succinate Er 50 Mg Tab.Er.24h) 50 mg PO DAILY [facility]; Protocol Last Admin: 01/11/24 08:37 Dose: 50 mg Documented By: SANIYA Pt Own (Vibegron [ Gemtesa] 75 Mg Tablet) 75 mg PO DAILY [facility] Last Admin: 01/11/24 08:37 Dose: 75 mg Documented By: SANIYA Omeprazole (Omeprazole 20 Mg Capsule.Dr) 20 mg PO DAILY@0630 [facility] Last Admin: 01/11/24 05:55 Dose: 20 mg Documented By: ALMA Ondansetron HCl (Ondansetron Hcl 4 Mg/2 Ml Vial) 4 mg IVPUSH Q8H PRN PRN Reason: Nausea and Vomiting Oxycodone HCl (Oxycodone Hcl Immed Release 5 Mg Tablet) 5 mg PO TID PRN PRN Reason: Pain, Severe (Pain Scale 7-10) Last Admin: 01/10/24 20:17 Dose: 5 mg Documented By: ALMA Sertraline HCl (Sertraline Hcl 50 Mg Tablet) 50 mg PO BEDTIME [facility] Last Admin: 01/10/24 20:18 Dose: 50 mg Documented By: ALMA Sodium Chloride (0.9 % Sodium Chloride Flush 3 Ml Syringe) 3 ml IVFLUSH QSHIFT [facility] Last Admin: 01/11/24 08:37 Dose: 3 ml Documented By: SANIYA Trazodone HCl (Trazodone Hcl 100 Mg Tablet) 100 mg PO BEDTIME [facility] Last Admin: 01/10/24 20:17 Dose: 100 mg Documented By: ALMA Labs 01/09/24 06:47 01/11/24 07:48 Labs: Laboratory Results - last 24 hr 01/11/24 07:48 Hold Purple Top SEE NOTE Anion Gap 16 Estim Creat Clear Calc 49.5 Estimated GFR > 60 Random Glucose 114 Calcium 9.2 Assessment and Plan (1) Acute congestive heart failure: Status: Acute Plan 88-year-old female with history of hypertension, chronic pain disorder, post- laminectomy syndrome, mood disorder, urge incontinence admitted for management of acute pyelonephritis with sepsis and new onset atrial fibrillation with rvr New onset atrial fibrillation with RVR converted back to NSR CHADS2 Vasc score at least 4. No contraindication to anticoagulation exists, discussed with patient who is in agreement with initiation of Eliquis 5 mg b.i.d. On Toprol-XL 50 mg daily Cardiology following -echo- normal systolic fx with ef 60-65%, normal diastolic fx for age, no valvular abn. Acute kidney injury resolved with IVF Hold losartan 50mg, naproxen acute CHF due to IVF d/c IVF continue lasix not requiring oxygen Acute pyelonephritis with sepsis Sepsis present on arrival. Now resolved. Leukocytosis trending down. HR WNL Urine culture growing Klebsiella aerogenes, Streptococcus viridans continue IV ceftriaxone (initiated 01/06) (was given single dose of IV Zosyn 01/05) Blood cultures negative to date Subclinical hyperthryoidism likely sick euthyroid/illness per Dr. Lopez in endo initially TSH 0.10, free t4 0.[address] Lopez, recheck tsh w/ reflex free t4, TSH and free t4 normal, free t3 slightly low TSH receptor antibody pending HTN hold losartan for SANTINO resume norvasc 5 mg, increase to home dose 10 mg if bp still high Continue Toprol-XL Chronic pain syndrome/post laminectomy syndrome continue oxycodone/bowel regimen meloxicam is formulary, formulary equivalent naproxen on hold for SANTINO Mood disorder -continue home meds COPD -no exacerbation -continue home inhalers urge incontinence -continue home meds DVT prophylaxis-Eliquis DNR/DNI Patient requires ongoing inpt stay due to IV antibiotics, CHF requiring IV Lasix Quality Stroke Does the patient have a stroke diagnosis?: No VTE Prior VTE?: No VTE Risk Level:: Medical - moderate - high VTE Device Contraindication: Treatment Not Indicated VTE Drug Contraindication: N/A - Med Ordered
[2024-01-11] MEDS: cefTRIAXone sodium 1 GM in 0.9 % Sodium Chloride 50 ML IV (14:47)
[2024-01-11] MEDS: Sertraline HCL 50 MG TABLET PO (20:06)
[2024-01-11] MEDS: Docusate Sodium 100 MG CAPSULE PO (20:06)
[2024-01-11] MEDS: traZODone HCL 100 MG TABLET PO (20:06)
[2024-01-11] MEDS: oxyCODONE HCl Immed Release 5 MG TABLET PO (20:07)
[2024-01-11 20:43] LABS: Thyrotropin Receptor Antibody <1.00 IU/L (<=2.00)
[2024-01-12] VITALS (11 sets, daily range): BP systolic 110–180; BP diastolic 50–78; PULSE 57–72; RESP 16–20; TEMP 36–37.4; O2SAT 90–96
[2024-01-12] MEDS: Omeprazole 20 MG CAPSULE.DR PO (05:49)
[2024-01-12] MEDS: Fluticasone/Vilanterol 200/25 BLST.W.DEV 1 PUFF INHALE (07:49)
[2024-01-12] MEDS: Acetaminophen 325 MG TABLET 650 MG PO ×2 (07:52→14:41)
[2024-01-12] MEDS: amLODIPine Besylate 10 MG TABLET PO (07:53)
[2024-01-12] MEDS: Fluticasone Propionate Nasal 16 GM SPRAY 1 SPRAY NOSTRIL-B (07:53)
[2024-01-12] MEDS: 0.9 % Sodium Chloride Flush 3 ML SYRINGE IVFLUSH ×4 (07:53→20:09)
[2024-01-12] MEDS: Atorvastatin Calcium 10 MG TABLET PO (07:53)
[2024-01-12] MEDS: Apixaban 5 MG TABLET PO ×2 (07:53→20:08)
[2024-01-12] MEDS: Metoprolol Succinate ER 50 MG TAB.ER.24H PO (07:53)
[2024-01-12] MEDS: PT OWN (Vibegron [Gemtesa] 75 mg tablet) 75 EACH PO (07:53)
[2024-01-12 09:43] LABS: Creatinine Clr Calc Pharmacy 44.1; Estimated Glomerular Filt Rate > 60
[2024-01-12] MEDS: cefTRIAXone sodium 1 GM in 0.9 % Sodium Chloride 50 ML IV (10:20)
--- NOTE | 2024-01-12 10:42 | P.PNIM_ITS ---
Subjective Subjective Date of Service: 01/12/24 Interval History: seen and examined this morning follow up for SANTINO, CHF breathing better overnight, no cough Review of Systems Review of Systems: Yes all other systems are reviewed and are negative Constitutional Constitutional: Denies fever(s) Cardiovascular Cardiovascular: Denies chest pain, Denies palpitations and Denies dyspnea on exertion Respiratory Respiratory: Denies dyspnea on exertion Endocrine Endocrine: Denies palpitations Physical Exam 2 Vital Signs: Vital Signs: Last Vital Signs Temp 97.2 F 01/12/24 10:17 Pulse 72 01/12/24 10:17 Resp 16 01/12/24 10:17 BP 148/59 H 01/12/24 10:17 Pulse Ox 90 L 01/12/24 10:17 O2 Del Method Room Air 01/12/24 10:17 O2 Flow Rate 1 01/07/24 04:45 BMI result Body Mass Index 36.3 Const: General: cooperative, comfortable, no acute distress, alert and awake Nutritional Appearance: overweight Orientation/consciousness: patient oriented x3 Resp: Other: b/l crackles, improving Effort & Inspection: normal respiratory effort, able to speak in complete sentences, no respiratory distress and no use of accessory muscles Cardio: Rate: regular rate GI: Inspection: No distended Palpation (GI): Soft to palpation and nontender Neuro: General: patient oriented x3, moves all extremities and CN's II-XI intact bilaterally Extrem: General: Yes no pedal edema Objective Data Active Medications Acetaminophen (Acetaminophen 325 Mg Tablet) 650 mg PO Q6H PRN PRN Reason: Pain, Mild 1-3, h/a, fever Last Admin: 01/12/24 07:52 Dose: 650 mg Documented By: ELVIA Albuterol Sulfate (Albuterol Sulfate 90 Mcg 8 Gm Inhaler) 2 puff INHALE Q6H PRN PRN Reason: wheezing Amlodipine Besylate (Amlodipine Besylate 10 Mg Tablet) 10 mg PO DAILY [facility]; Protocol Last Admin: 01/12/24 07:53 Dose: 10 mg Documented By: ELVIA Apixaban (Apixaban 5 Mg Tablet) 5 mg PO BID [facility] Last Admin: 01/12/24 07:53 Dose: 5 mg Documented By: ELVIA Atorvastatin Calcium (Atorvastatin Calcium 10 Mg Tablet) 10 mg PO DAILY [facility] Last Admin: 01/12/24 07:53 Dose: 10 mg Documented By: ELVIA Calcium Carbonate (Calcium Carbonate 750 Mg Tab.Chew) 750 mg PO Q4H PRN PRN Reason: Heartburn Docusate Sodium (Docusate Sodium 100 Mg Capsule) 100 mg PO BID PRN PRN Reason: Constipation Last Admin: 01/11/24 20:06 Dose: 100 mg Documented By: ALMA Fluticasone Propionate (Fluticasone Propionate Nasal 16 Gm [place]) 1 spray NOSTRIL-B DAILY [facility] Last Admin: 01/12/24 07:53 Dose: 1 spray Documented By: ELVIA Fluticasone/Vilanterol (Fluticasone/Vilanterol 200/25 Blst.W.Dev) 1 puff INHALE RDAILY [facility] Last Admin: 01/12/24 07:49 Dose: 1 puff Documented By: VALERIANO Guaifenesin (Guaifenesin 200 Mg/10 Ml 10 Ml Liquid) 10 ml PO Q4H PRN PRN Reason: Cough Last Admin: 01/11/24 20:06 Dose: 10 ml Documented By: ALMA Ceftriaxone Sodium 1 gm/ (Sodium Chloride) 50 mls @ 100 mls/hr IV Q24H [facility] Last Admin: 01/12/24 10:20 Dose: 100 mls/hr Documented By: ELVIA Losartan Potassium (Losartan Potassium 50 Mg Tablet) 50 mg PO DAILY [facility]; Protocol Last Admin: 01/08/24 08:10 Dose: 50 mg Documented By: LEANNE Magnesium Hydroxide (Milk Of Magnesia 30 Ml Oral.Susp) 30 ml PO DAILY PRN PRN Reason: Constipation Metoprolol Succinate (Metoprolol Succinate Er 50 Mg Tab.Er.24h) 50 mg PO DAILY [facility]; Protocol Last Admin: 01/12/24 07:53 Dose: 50 mg Documented By: ELVIA Pt Own (Vibegron [ Gemtesa] 75 Mg Tablet) 75 mg PO DAILY [facility] Last Admin: 01/12/24 07:53 Dose: 75 mg Documented By: ELVIA Omeprazole (Omeprazole 20 Mg Capsule.Dr) 20 mg PO DAILY@0630 [facility] Last Admin: 01/12/24 05:49 Dose: 20 mg Documented By: ALMA Ondansetron HCl (Ondansetron Hcl 4 Mg/2 Ml Vial) 4 mg IVPUSH Q8H PRN PRN Reason: Nausea and Vomiting Oxycodone HCl (Oxycodone Hcl Immed Release 5 Mg Tablet) 5 mg PO TID PRN PRN Reason: Pain, Severe (Pain Scale 7-10) Last Admin: 01/11/24 20:07 Dose: 5 mg Documented By: ALMA Sertraline HCl (Sertraline Hcl 50 Mg Tablet) 50 mg PO BEDTIME [facility] Last Admin: 01/11/24 20:06 Dose: 50 mg Documented By: ALMA Sodium Chloride (0.9 % Sodium Chloride Flush 3 Ml Syringe) 3 ml IVFLUSH QSHIFT [facility] Last Admin: 01/12/24 07:53 Dose: 3 ml Documented By: ELVIA Trazodone HCl (Trazodone Hcl 100 Mg Tablet) 100 mg PO BEDTIME [facility] Last Admin: 01/11/24 20:06 Dose: 100 mg Documented By: ALMA Labs 01/09/24 06:47 01/12/24 09:23 Labs: Laboratory Results - last 24 hr 01/08/24 01/12/24 14:23 09:23 Estim Creat Clear Calc 44.1 Estimated GFR > 60 TSH Receptor Ab <1.00 Microbiology Microbiology Results: Microbiology 01/06/24 22:09 Blood Culture - Final Blood - Venous No growth after 5 days. 01/06/24 22:09 Blood Culture - Final Blood - Venous No growth after 5 days. Assessment and Plan (1) Acute congestive heart failure: Status: Acute Plan 88-year-old female with history of hypertension, chronic pain disorder, post- laminectomy syndrome, mood disorder, urge incontinence admitted for management of acute pyelonephritis with sepsis and new onset atrial fibrillation with rvr New onset atrial fibrillation with RVR converted back to NSR CHADS2 Vasc score at least 4. No contraindication to anticoagulation exists, discussed with patient who is in agreement with initiation of Eliquis 5 mg b.i.d. On Toprol-XL 50 mg daily Cardiology following -echo- normal systolic fx with ef 60-65%, normal diastolic fx for age, no valvular abn. Acute kidney injury resolved with IVF Hold losartan 50mg, naproxen acute CHF due to IVF d/c IVF continue lasix not requiring oxygen Acute pyelonephritis with sepsis Sepsis present on arrival. Now resolved. Leukocytosis trending down. HR WNL Urine culture growing Klebsiella aerogenes, Streptococcus viridans continue IV ceftriaxone (initiated 01/06) (was given single dose of IV Zosyn 01/05) Blood cultures negative to date Subclinical hyperthryoidism likely sick euthyroid/illness per Dr. Lopez in endo initially TSH 0.10, free t4 0.[address] Lopez, recheck tsh w/ reflex free t4, TSH and free t4 normal, free t3 slightly low TSH receptor antibody negative HTN hold losartan for SANTINO Continue Toprol-XL, norvasc Chronic pain syndrome/post laminectomy syndrome continue oxycodone/bowel regimen meloxicam is formulary, formulary equivalent naproxen on hold for SANTINO Mood disorder -continue home meds COPD -no exacerbation -continue home inhalers urge incontinence -continue home meds DVT prophylaxis-Eliquis DNR/DNI Patient requires ongoing inpt stay due to IV antibiotics, CHF requiring IV Lasix Quality Stroke Does the patient have a stroke diagnosis?: No VTE Prior VTE?: No VTE Risk Level:: Medical - moderate - high VTE Device Contraindication: Treatment Not Indicated VTE Drug Contraindication: N/A - Med Ordered
[2024-01-12] MEDS: Furosemide 20 MG/2 ML VIAL IVPUSH (11:00)
[2024-01-12] MEDS: guaiFENesin 200 MG/10 ML 10 ML LIQUID PO ×2 (14:40→20:08)
[2024-01-12] MEDS: oxyCODONE HCl Immed Release 5 MG TABLET PO (20:08)
[2024-01-12] MEDS: Sertraline HCL 50 MG TABLET PO (20:08)
[2024-01-12] MEDS: traZODone HCL 100 MG TABLET PO (20:08)
[2024-01-13] VITALS: BP 120/50; PULSE 66; RESP 18; TEMP 36.7; O2SAT 92
[2024-01-13 04:00] VITALS: BP 131/64; PULSE 59; RESP 18; TEMP 36; O2SAT 94
[2024-01-13] MEDS: Omeprazole 20 MG CAPSULE.DR PO (05:58)
[2024-01-13] MEDS: Acetaminophen 325 MG TABLET 650 MG PO ×2 (07:16→16:07)
[2024-01-13 07:33] VITALS: BP 138/68; PULSE 60; RESP 20; TEMP 36.6; O2SAT 96
[2024-01-13] MEDS: Fluticasone/Vilanterol 200/25 BLST.W.DEV 1 PUFF INHALE (07:39)
[2024-01-13 07:40] VITALS: PULSE 56; RESP 18; O2SAT 94
[2024-01-13] MEDS: Metoprolol Succinate ER 50 MG TAB.ER.24H PO (07:47)
[2024-01-13] MEDS: amLODIPine Besylate 10 MG TABLET PO (07:47)
[2024-01-13] MEDS: Apixaban 5 MG TABLET PO (07:47)
[2024-01-13] MEDS: 0.9 % Sodium Chloride Flush 3 ML SYRINGE IVFLUSH ×2 (07:48→16:08)
[2024-01-13] MEDS: PT OWN (Vibegron [Gemtesa] 75 mg tablet) 75 EACH PO (07:48)
[2024-01-13] MEDS: Atorvastatin Calcium 10 MG TABLET PO (07:49)
[2024-01-13] MEDS: Fluticasone Propionate Nasal 16 GM SPRAY 1 SPRAY NOSTRIL-B (09:34)
[2024-01-13] MEDS: cefTRIAXone sodium 1 GM in 0.9 % Sodium Chloride 50 ML IV (11:15)
[2024-01-13 11:36] VITALS: BP 132/72; PULSE 70; RESP 20; TEMP 36.2; O2SAT 95
--- NOTE | 2024-01-13 14:44 | MHC.CM.PN ---
EMR reviewed and per MD rounds, pt is not medically cleared for discharge today due to ongoing management of CHF.
[2024-01-13 16:00] VITALS: BP 128/52; PULSE 63; RESP 20; TEMP 36.3; O2SAT 95
--- NOTE | 2024-01-13 16:48 | P.DS_ITS ---
DS: Providers Provider Date of Service: 01/13/24 Date of admission: 01/07/24 09:58 Primary care physician: Ling Middleton DNP Consults: 01/07/24 10:02 Consult to Cardiology Routine Consulting Provider: [facility] Reason for consultation: new onset afib rvr DS: Diagnosis Discharge Diagnosis (1) Acute congestive heart failure: Status: Acute DS: Summary Hospital Course Hospital Course: 88-year-old female with history of hypertension, chronic pain disorder, post- laminectomy syndrome, mood disorder, urge incontinence presents to the ED for evaluation of fatigue and lethargy ongoing for 3 days. She states that since Saturday, she has not wanted to get out of bed and has been sleeping near constantly. She is anorexia with associated nausea and did vomit x1 last night. She has also had chills but has not taken her temperature. For many months, she also reports dyspnea on exertion that has not acutely worsened. There is also occasionally anxiety and mild chest discomfort. She denies any orthopnea, edema, weight gain. Denies abdominal pain, diarrhea, melena, hematochezia, hematemesis, dysuria, hematuria, increased urinary frequency from baseline. On arrival, VSS. However developed fever 102.3 with tachycardia up to 150s. EKG revealed new onset afib. Given IV lopressor with improvement in HR to the 80s and low 60s on admission. BP soft, but no hypotension. BP 132/61 on admission. EKG ordered to confirm conversion back to NSR. While in rapid afib was also hypoxic to 88% and placed on 2L but has been weaned back to RA. On arrival, there was a leukocytosis of 19.4. Renal function appears consistent with baseline, electrolyte levels normal. Lactic acid 1.2. Mild hyperglycemia of 150. Initial troponin 12.7, repeat 10.5. BNP 271. TSH pending. Urinalysis significant for 1+ leukocytes, trace blood, positive urinary sediment, trace bacteria. She is negative for flu, COVID, RSV. Radiology read her chest x-ray is pending but appears to be negative for any acute cardiopulmonary abnormality. CT abdomen/pelvis shows possible mild peripancreatic infiltrative change but lipase is 17. There is also possible area of focal pyelonephritis in the right kidney versus complex cyst. Gallbladder is mildly distended but no gallstones seen. In the ED, was given Tylenol, initially thought to be in volume overload and was given 20 mg Lasix. Given 5 mg IV Lopressor, ondansetron, oxycodone, and started on IV Zosyn. 88-year-old woman treated for new onset atrial fibrillation with rapid ventricular response. She did convert back to normal sinus rhythm. Her CHADS- VASc score was at least a 4 and she was started on Eliquis 5 mg b.i.d. with Toprol 15 mg daily. She was seen evaluated by Cardiology. Echocardiogram showed normal systolic function with EF of 60-65%. She was also noted to have acute kidney injury but resolved with IV fluids. Hold losartan and naproxen was held initially. She had mild acute heart failure with preserved ejection f raction likely due to IV fluids. IV fluids were discontinued and she was given some Lasix but never required oxygen. She was also treated for acute pyelonephritis with sepsis. Urine culture grew Klebsiella aerogenes and Streptococcus viridans. She was treated with IV ceftriaxone. We will continue home dose of Levaquin. Blood cultures remained negative to date. Patient was noted to have subclinical hypothyroidism likely sick euthyroid or secondary to illness as per Dr. Lopez, director commercial sales. Initial TSH 0.10, free T4 0.96. Patient was seen evaluated by Physical therapy who recommended home. Patient is in agreement to this. Hypertension. Continue losartan, Norvasc and Toprol-XL Chronic pain syndrome. Continue oxycodone, bowel regimen, meloxicam Mental health. Continue medications COPD. No exacerbation during hospitalization. Continue medications History of urge incontinence. Continue home medications Time Attestation Discharge Coordination Time (in mins): 40 Quality: Safe Use of Opioids Does Pt have an Active Cancer Diagnosis on the Problem List?: No Quality: Stroke Does the patient have a stroke diagnosis?: No Physical Exam Vital Signs: Vital Signs: Last Vital Signs Temp 97.4 F 01/13/24 16:00 Pulse 63 01/13/24 16:00 Resp 20 01/13/24 16:00 BP 128/52 L 01/13/24 16:00 Pulse Ox 95 01/13/24 16:00 O2 Del Method Room Air 01/13/24 16:00 O2 Flow Rate 1 01/07/24 04:45 BMI result Body Mass Index 36.3 Appearing in no acute distress head is normocephalic atraumatic eyes pupils are PERRLA sclera is anicteric mouth throat mucous membranes are intact and moist neck is supple no lymphadenopathy, no JVD noted lung sounds are clear to auscultation heart regular rate rhythm, clear S1, S2 positive bowel sounds, abdomen is soft, nontender neuro patient is alert x3, no focal deficits Discharge Plan Discharge Anticipated Discharge Date/Time: 01/13/24 16:27 Patient Disposition: Home, Self-Care Discharge Diagnosis: New onset atrial fibrillation with rapid ventricular response SANTINO Sepsis Acute pyelonephritis Subclinical hypothyroidism Heart failure with preserved ejection fraction Referrals: Ling Middleton, ZINA [Primary Care Provider] - 1 Week Discharge Medications: New metoprolol succinate 50 mg Tablet Extended Release 24 Hr 50 mg PO DAILY Qty: 30 0RF Protocol: Hold for SBP/HR < HOLD for SBP < : 90 HOLD for HR < : 60 Eliquis 5 mg Tablet 5 mg PO BID Qty: 60 0RF levofloxacin 500 mg tablet 500 mg PO DAILY Qty: 5 0RF Continued fluticasone furoate-vilanterol [Breo Ellipta] 200-25 mcg/dose blister with device 1 ea INHALATION DAILY docusate sodium [Colace] 100 mg capsule 100 mg PO BID PRN (Reason: Constipation) sertraline 50 mg tablet 50 mg PO BEDTIME losartan 100 mg tablet 100 mg PO DAILY pantoprazole 40 mg tablet,delayed release (DR/EC) 40 mg PO DAILY@0630 amlodipine 10 mg tablet 10 mg PO DAILY trazodone 100 mg tablet 100 mg PO BEDTIME atorvastatin 10 mg tablet 10 mg PO DAILY fluticasone propionate 50 mcg/actuation spray,suspension 1 spray intranasal DAILY albuterol sulfate 90 mcg/actuation HFA aerosol inhaler 2 puff PO Q6H PRN (Reason: wheezing) meloxicam 15 mg tablet 15 mg PO DAILY oxycodone 5 mg tablet 5 mg PO TID PRN (Reason: Pain) Gemtesa 75 mg tablet 75 mg PO DAILY Discharge Orders: Discharge Order (Routine); Ordered 01/13/24 Ordered By: Nilsa Aguilar Diet: Advance to usual diet Activity on Discharge: As tolerated Stand Alone Forms: Patient Portal Discharge page Print Language: [place] Care Plan Goals: You have been started on new medications. The 1st one is for atrial fibrillation which is metoprolol and the 2nd one is Eliquis, a blood thinner. Take both as prescribed Take Levaquin for 5 days for urinary tract infection Health Concerns: New onset atrial fibrillation with rapid ventricular response SANTINO Sepsis Acute pyelonephritis Subclinical hypothyroidism Heart failure with preserved ejection fraction Plan of Treatment: Follow-up with primary care provider as needed Take all medications as prescribed Assessment: See discharge summary Patient Instructions: Apixaban (By mouth), A-fib (Atrial Fibrillation) (DC)
== END 2024-01-13 18:31 | disposition home or self-care (01) | DRG 871 ==
LOC: HO.ED 01-07 06:49 → HO.EDOVER 01-07 10:12 → HO.IMC 01-07 19:18
PROVIDERS: Physician Assistant Medical; Student in an Organized Health Care Education/Training Program; Admitting Provider Physician Assistant; Emergency Provider Emergency Medicine; PCP Registered Nurse; Visit Provider Nurse Practitioner Acute Care
DX: A41.9 Sepsis, unspecified organism (principal); I50.31 Acute diastolic (congestive) heart failure; N17.9 Acute kidney failure, unspecified; N10 Acute pyelonephritis; E03.8 Other specified hypothyroidism; T50.1X5A Adverse effect of loop [high-ceiling] diuretics, initial encounter; Z66 Do not resuscitate; F39 Unspecified mood [affective] disorder; E07.81 Sick-euthyroid syndrome; J44.9 Chronic obstructive pulmonary disease, unspecified; I48.91 Unspecified atrial fibrillation; Z71.3 Dietary counseling and surveillance; E66.3 Overweight; I11.0 Hypertensive heart disease with heart failure; N39.41 Urge incontinence; G89.4 Chronic pain syndrome; M96.1 Postlaminectomy syndrome, not elsewhere classified; Z20.822 Contact with and (suspected) exposure to COVID-19; Z68.36 Body mass index [BMI] 36.0-36.9, adult; Z87.891 Personal history of nicotine dependence; Z79.51 Long term (current) use of inhaled steroids; Z79.899 Other long term (current) drug therapy
CPT/HCPCS: 0241U; 36415; 71045; 71046; 74177; 80048; 80053; 81001; 82565; 82947; 83036; 83520; 83605; 83690; 83735; 83880; 84439; 84443; 84481; 84484; 85025; 85610; 85730; 87040; 87086; 87088; 87186; 93005; 93306; 94640; 97161; 99285; J0696; J1940; J2405; J2543; Q9957; Q9967

== ENCOUNTER → 2024-01-06 19:16 | Outpatient (BNV) | payer MEDICARE, OTHER, SELFPAY | PROVIDERS: Admitting Provider Physician Assistant; Emergency Provider Emergency Medicine; PCP Registered Nurse; Visit Provider Internal Medicine | DX: R07.9 Chest pain, unspecified (principal); I49.1 Atrial premature depolarization; R94.31 Abnormal electrocardiogram [ECG] [EKG] | CPT/HCPCS: 93010 ==

== ENCOUNTER → 2024-01-07 07:00 | Outpatient (BNV) | payer MEDICARE, OTHER, SELFPAY | PROVIDERS: Admitting Provider Physician Assistant; Emergency Provider Emergency Medicine; PCP Registered Nurse; Visit Provider Internal Medicine | DX: I49.1 Atrial premature depolarization (principal); I48.91 Unspecified atrial fibrillation; I36.1 Nonrheumatic tricuspid (valve) insufficiency; I35.8 Other nonrheumatic aortic valve disorders; I34.81 Nonrheumatic mitral (valve) annulus calcification; I42.2 Other hypertrophic cardiomyopathy | CPT/HCPCS: 93010; 93306 ==

== ENCOUNTER 2024-01-07 09:58 | Outpatient (BNV) | payer MEDICARE, OTHER, SELFPAY | END 2024-01-08 10:21 | PROVIDERS: Admitting Provider Physician Assistant; Emergency Provider Emergency Medicine; PCP Registered Nurse; Visit Provider Internal Medicine | DX: R94.31 Abnormal electrocardiogram [ECG] [EKG] (principal); I49.9 Cardiac arrhythmia, unspecified | CPT/HCPCS: 93010 ==

== ENCOUNTER 2024-01-07 09:58 | Outpatient (BNV) | payer MEDICARE, OTHER, SELFPAY | END 2024-01-09 11:55 | PROVIDERS: Admitting Provider Physician Assistant; Emergency Provider Emergency Medicine; PCP Registered Nurse; Visit Provider Internal Medicine | DX: R00.1 Bradycardia, unspecified (principal); R94.31 Abnormal electrocardiogram [ECG] [EKG] | CPT/HCPCS: 93010 ==

== ENCOUNTER → 2024-01-07 09:58 | Outpatient (BNV) | payer MEDICARE, OTHER, SELFPAY | PROVIDERS: Admitting Provider Physician Assistant; Emergency Provider Emergency Medicine; PCP Registered Nurse; Visit Provider Physician Assistant | DX: I50.9 Heart failure, unspecified (principal) | CPT/HCPCS: 99223; 99232; 99239 ==

== ENCOUNTER → 2024-01-07 09:58 | Outpatient (BNV) | payer MEDICARE, OTHER, SELFPAY | PROVIDERS: Admitting Provider Physician Assistant; Emergency Provider Emergency Medicine; PCP Registered Nurse; Visit Provider Internal Medicine | DX: I48.91 Unspecified atrial fibrillation (principal); I50.9 Heart failure, unspecified | CPT/HCPCS: 99223; 99233 ==

== ENCOUNTER 2024-01-29 08:53 | Outpatient (AMB) | payer MEDICARE, OTHER, SELFPAY ==
--- NOTE | 2024-01-29 07:58 | MHC.PC.OV ---
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 Intake Note: New patient visit Door Serviceman Required: No Allergies bee pollen Allergy (Unknown, Verified 01/29/24 09:03) Unknown house dust mite Allergy (Unknown, Verified 01/29/24 09:03) Unknown adhesive tape Adverse Reaction (Intermediate, Verified 01/07/24 22:03) Rash Medication List - Last Reconciled 01/29/24 by Allison Ham PA-C albuterol sulfate 90 mcg/actuation 2 puffs PO Q6H PRN amlodipine 10 mg PO DAILY atorvastatin 10 mg PO DAILY cholecalciferol (vitamin D3) 50 mcg PO DAILY fluticasone furoate-vilanterol 200-25 mcg/dose (Breo Ellipta) 1 ea inhalation DAILY fluticasone propionate 50 mcg/actuation 1 spray intranasal BID ipratropium bromide intranasal Q12H meloxicam 15 mg PO DAILY metoprolol succinate ER 50 mg See Protocol PO DAILY oxycodone 5 mg PO TID PRN pantoprazole 40 mg PO DAILY@0630 rivaroxaban (Xarelto) 20 mg PO QPM sertraline 50 mg PO BEDTIME trazodone 100 mg PO BEDTIME vibegron (Gemtesa) 75 mg PO DAILY vibegron (Gemtesa) 75 mg PO DAILY Tobacco use date assessed: 01/29/24 Fall risk assessment: No Falls in past year Last assessed Fall Risk: 01/29/24 Dental Screening Dental Screen Date: 01/29/24 Did you have a dental visit in the last 12 months?: Yes Did you have a dental problem in the last 6 months where you did not have access to dental care?: No Was dental information given to patient?: Patient has dentist HPI 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 She states that her previous PCP started it non ferrous material handler practice and has been unable to keep her as a patient. She has a significant past medical history of hypertension, CKD, GERD, chronic pain disorder, s/p laminectomy syndrome, mood disorder, urge incontinence and new diagnosis of AFib. On 01/06 she presented to the ER with complaints of fatigue and lethargy for 3 days. She was found to be septic with acute pyelonephritis, new onset AFib and SANTINO. She was also noted to have subclinical hypothyroidism and heart failure with a preserved ejection fraction. She states that since the hospitalization she has been still feeling tired but feeling better every day. She wonders if it has related to the metoprolol. Previously, her blood pressure had been managed with losartan which was discontinued due to the SANTINO in the hospital. She states that she does not think she has had any episodes of AFib since her hospitalization. She continues on the metoprolol and Xarelto. She denies any chest pain or palpitations. She still has some shortness a breath with exertion and she states that she thinks it has a little bit better than the hospitalization but she has not exactly sure. During the hospitalization she did have a chest x-ray which showed some pulmonary edema. She states that then they gave her diuresis but she did not have her x-ray repeated and was not discharged on this. Her family members here today with her and states that her ankles look puffy. She says that they are not normally swollen and she has tiny joints . She did see Ling Middleton 1 time last week for a follow up which she paid for. She states that no medications were changed. She checks her blood pressures at home and states that they have been really normal. She states that she gets white coat hypertension. She does not think she currently has a UTI but does have some increased frequency of urination. She is on gemtesa at baseline for overactive bladder. On CT of the abdomen and pelvis that did show a possible complex cyst on the right kidney. No known history of this. PULM: She does have a hx of COPD but does not think it is exacerbated. Musculoskeletal: Has a history of failed back syndrome. She states that her chronic pain syndrome is controlled with oxycodone 5 mg 3 times a day. Psych: She has been on Zoloft 50 mg and trazodone 100 mg for some time and feels well-controlled with this. She states that she does not go for any routine screening tests. She does follow with a employment clerk who has offered her a colonoscopy every year but she declines it. She follows for her pantoprazole. [facility] Medical History (Updated 01/29/24 @ 11:32 by Allison Ham PA-C) Generalized anxiety disorder Insomnia Major depression, recurrent, chronic Arthritis High blood cholesterol COPD (chronic obstructive pulmonary disease) Urge incontinence Joint pain Chronic back pain HTN (hypertension) Bleeding hemorrhoid Back pain with history of spinal surgery Social History Household Members: None Housing: Apartment Do you presently have visiting nurse or other home services: Yes ([employer] SUPER[employer]OR for housekeeping 2 times per week) Patient Tobacco Use Status: Former Tobacco user Tobacco use type: Cigarette Cigarettes Per Day: 15 Years Smoked: 10 e-Cigarette/Vaping Use: Never Used Second Hand Smoke Exposure: No Substance Use Type: Painkillers service: No Current occupational status: retired Cognitive needs: No Hearing needs: Yes (hearing aids) Vision needs: No Questionnaire PHQ-9 Over the last 2 weeks, how often have you been bothered by any of the following problems? 1. Little interest or pleasure in doing things: several days 2. Feeling down, depressed, or hopeless: several days 3. Trouble falling or staying asleep, or sleeping too much: several days 4. Feeling tired or having little energy: nearly every day 5. Poor appetite or overeating: several days 6. Feeling bad about yourself - or that you are a failure or have let yourself or your family down: nearly every day 7. Trouble concentrating on things, such as reading the newspaper or watching television: several days 8. Moving or speaking so slowly that other people could have noticed. Or the opposite - being so fidgety or restless that you have been moving around a lot more than usual: not at all 9. Thoughts that you would be better off or of hurting yourself in some way: more than half the days Total score: 13 Depression Screening Interpretation: Positive Depression Screening Follow-up: Existing condition and Follow-up Visit Requested Depression Screening Done: Yes 11858 - PHQ-9 Billing: Yes Source: Developed by Drs. Rommel Olivares, Kaylee Fabian, Al Ny and colleagues, with an educational ken from [employer]. Thrive Questionnaire Date Thrive assessed: 01/29/24 I am a: Patient What is your living situation today?: I have a steady place to live Within the past 12 months, did the food you bought not last and you didn't have the money to get more?: Never true Within the past 12 months, did you worry whether your food would run out before you got money to buy more?: Never true Do you have trouble paying for medicines?: No Do you have trouble getting transportation to medical appointments?: No Do you have trouble paying your heating and electricity bill?: No Do you have trouble taking care of your child, family member or friend?: No Do you have trouble with day-to-day activities such as bathing, preparing meals, shopping, managing finances, etc.?: No Are you currently unemployed and looking for a job?: No Are you interested in more education?: No Please select the resources that you would like help with: None Currently or been in a relationship where the following occur: No concerns reported THRIVE Score: 0 AUDIT C Alcohol Use Questionnaire (AUDIT-C) 1. How often do you have a drink containing alcohol?: 2-4 times a month 2. How many drinks containing alcohol do you have on a typical day when you are drinking?: 1 or 2 3. How often do you have six or more drinks on one occasion?: Never Total Score: 2 RAYNE-7 AMB Questionnaire RAYNE-7 Date RAYNE - 7 assessed: 01/29/24 Feeling nervous, anxious, or on edge: 2 = More than half the days Not being able to stop or control worryin = Several days Worrying too much about different things: 1 = Several days Trouble relaxin = Several days Being so restless that it is hard to sit still: 1 = Several days Becoming easily annoyed or irritable: 0 = Not at all Feeling afraid as if something awful might happen: 1 = Several days Total RAYNE-7 score (0-4 normal; 5-9 mild; 10-14 moderate; 15-21 severe): 7 Source: Developed by Drs. Rommel Olivares, Kaylee Fabian, Al Ny and colleagues, with an educational ken from [employer]. RAYNE-7 Assessment Billing RAYNE-7 Assessment Tool: RAYNE-7 Assessment 86859 Physical exam (Primary Care) Vital Signs: Last Vital Signs Temp 98.1 F 01/29/24 09:10 Pulse 58 01/29/24 09:10 Resp 16 01/29/24 09:10 BP 163/60 H 01/29/24 09:21 Pulse Ox 96 01/29/24 09:10 Oxygen Delivery Method Room Air 01/29/24 09:10 BMI result Body Mass Index 36.8 Tobacco/Smoking Status: Tobacco use Status Tobacco use date assessed 01/29/24 01/29/24 09:16 Patient Tobacco Use Status Former Tobacco user 01/29/24 07:59 Tobacco use type Cigarette 01/29/24 07:59 e-Cigarette/Vaping Use Never Used 01/29/24 09:16 PHQ-9: PHQ-9 Score PHQ-9: Total score 13 01/29/24 09:57 Depression Screening Interpretation: Positive Depression Screening Follow-up: Existing condition and Follow-up Visit Requested Thrive Assessment: Date of Thrive Assessment Date Thrive assessed 01/29/24 01/29/24 09:16 Currently or been in a relationship where the following occur: No concerns reported Const Orientation/consciousness: patient oriented x3 HENMT Ears: hearing grossly normal bilaterally Neck Thyroid: Thyroid normal Lymphatic: no lymphadenopathy noted Resp Auscultation: clear to auscultation bilaterally Cardio Rate: regular rate Rhythm: regular rhythm Heart sounds: S1 normal heart sound present and S2 normal heart sound present GI Inspection: Yes normal to inspection Palpation (GI): Soft to palpation and Other GI palpation findings present (nontender, no cva tenderness) Auscultation: normoactive bowel sounds Rectal Exam - Female: deferred Skin General skin exam: no rashes or lesions noted Neuro General: patient oriented x3, gait normal and no focal motor deficits Extrem Other: 1+ pitting edema noted over the bilateral lower legs. Results Reviewed Results Reviewed: Laboratory Tests 01/09/24 01/11/24 01/12/24 06:47 07:48 09:23 WBC 10.8 RBC 3.51 L Hgb 10.7 L Hct 32.1 L Plt Count 348 D Sodium 143 Potassium 3.6 Chloride 108 Estim Creat Clear Calc 44.1 Estimated GFR 27 > 60 Conclusions: - The left ventricular systolic function is normal. The visually estimated ejection fraction is between 60-65%. - There is moderate septal asymmetric hypertrophy. - No obvious valvular pathology seen on this study. XR/XR chest 2V IMPRESSION: No evidence for acute disease in the chest. IMPRESSION: 1. Increased interstitial markings could reflect pulmonary edema or atypical infectious/inflammatory process. 2. New focal airspace densities in the right lower lobe that could represent subsegmental atelectasis, aspiration or consolidation. Recommend attention on follow-up. CT/CT abdomen pelvis w IV con IMPRESSION: 1. There appears to be mild peripancreatic infiltrative change. There is possibly related to motion versus mild/early pancreatitis. Correlation needed 2. There is a small area of diminished enhancement mid to upper pole right kidney. This could represent focal pyelonephritis versus complex cyst.. 3. The gallbladder is distended. No definite gallstones are seen. 4. There are diverticula of the descending and sigmoid colon without evidence for acute diverticulitis. Fleischner guidelines were followed. Assessment and Plan Assessment & Plan (1) Kidney lesion, ione, right: Code(s): N28.9 - Disorder of kidney and ureter, unspecified Plan: Ultrasound ordered (2) FOREMAN (dyspnea on exertion): Code(s): R06.09 - Other forms of dyspnea Plan: A bit improved from hospitalization. Repeat chest x-ray. Labs reviewed from office. We will start Lasix. Follow up in 1 week. Sooner if needed. (3) Fatigue: Code(s): R53.83 - Other fatigue Plan: Labs and urine ordered. We will follow up pending test results. (4) Paroxysmal A-fib: Code(s): I48.0 - Paroxysmal atrial fibrillation Plan: Has follow up on Saturday with Cardiology. I will see her back in 1 week. In normal sinus rhythm today. (5) Major depression, recurrent, chronic: Code(s): F33.9 - Major depressive disorder, recurrent, unspecified Plan: Reviewed her PHQ-9 today. She states that some of this is a bit exacerbated because of her recent hospitalization and she expected to bounce back without difficulty. Continue current regimen. Denies any SI/HI. (6) Insomnia: Code(s): G47.00 - Insomnia, unspecified Plan: Currently well-controlled. Continue trazodone. (7) Generalized anxiety disorder: Code(s): F41.1 - Generalized anxiety disorder Plan: As above (8) Chronic pain syndrome: Code(s): G89.4 - Chronic pain syndrome Plan: Advised to obtain records from previous PCP to review her pain contract. Plan Follow up in 1 week. Sooner if needed. Patient understands and agrees with the plan. Orders: Orders Magnesium Today I48.0 - Paroxysmal atrial fibrillation, N28.9 - Disorder of kidney and ureter, unspecified, R06.09 - Other forms of dyspnea, R53.83 - Other fatigue Ferritin Today I48.0 - Paroxysmal atrial fibrillation, N28.9 - Disorder of kidney and ureter, unspecified, R06.09 - Other forms of dyspnea, R53.83 - Other fatigue TSH reflex Free T4 Today I48.0 - Paroxysmal atrial fibrillation, N28.9 - Disorder of kidney and ureter, unspecified, R06.09 - Other forms of dyspnea, R53.83 - Other fatigue Vitamin B12 and Folate Today I48.0 - Paroxysmal atrial fibrillation, N28.9 - Disorder of kidney and ureter, unspecified, R06.09 - Other forms of dyspnea, R53.83 - Other fatigue XR chest 2V Today R06.09 - Other forms of dyspnea Complete Blood Count Auto Diff Today I48.0 - Paroxysmal atrial fibrillation, N28.9 - Disorder of kidney and ureter, unspecified, R06.09 - Other forms of dyspnea, R53.83 - Other fatigue Comprehensive Met. Panel Today I48.0 - Paroxysmal atrial fibrillation, N28.9 - Disorder of kidney and ureter, unspecified, R06.09 - Other forms of dyspnea, R53.83 - Other fatigue Urine Culture Today I48.0 - Paroxysmal atrial fibrillation, N28.9 - Disorder of kidney and ureter, unspecified, N39.0 - Urinary tract infection, site not specified, R06.09 - Other forms of dyspnea, R53.83 - Other fatigue IRON PROFILE Today I48.0 - Paroxysmal atrial fibrillation, N28.9 - Disorder of kidney and ureter, unspecified, R06.09 - Other forms of dyspnea, R53.83 - Other fatigue US renal BI Today N28.9 - Disorder of kidney and ureter, unspecified Medications: New furosemide (Lasix) 20 mg PO DAILY 7 tabs 0RF Coding Level of Care Code New Pt Level 5 (42890) Complex EM visit Add On G2211 Diagnoses Kidney lesion, ione, right N28.9 FOREMAN (dyspnea on exertion) R06.09 Fatigue R53.83 Paroxysmal A-fib I48.0 Major depression, recurrent, chronic F33.9 Insomnia G47.00 Generalized anxiety disorder F41.1 Chronic pain syndrome G89.4 Additional Codes RAYNE-7 Assessment Billing - RAYNE-7 Assessment Tool: RAYNE-7 Assessment 74157 ([id number]) Time Spent (min) 70
[2024-01-29 09:10] VITALS: BP 164/74; PULSE 58; RESP 16; TEMP 36.7; O2SAT 96; BMI 36.8
[2024-01-29 09:21] VITALS: BP 163/60
== END 2024-01-29 10:07 | disposition home or self-care (01) ==
PROVIDERS: PCP Physician Assistant; Visit Provider Physician Assistant
DX: I48.0 Paroxysmal atrial fibrillation (principal); F33.9 Major depressive disorder, recurrent, unspecified; N28.9 Disorder of kidney and ureter, unspecified; R06.09 Other forms of dyspnea; R53.83 Other fatigue; G47.00 Insomnia, unspecified; F41.1 Generalized anxiety disorder; G89.4 Chronic pain syndrome
CPT/HCPCS: 99215; G2211

== ENCOUNTER 2024-01-29 10:11 | Outpatient (REF) | payer MEDICARE, OTHER, SELFPAY ==
[2024-01-29 13:10] LABS: MANUAL DIFF FLAG NO
[2024-01-29 13:14] LABS: Basophils Absolute Auto 0.1 X10*3/uL (0.0-0.2); Basophils Percent Auto 0.9 % (0-2); Eosinophils Absolute Auto 0.7 X10*3/uL (0.0-0.4); Eosinophils Percent Auto 6.6 % (0-4); Hematocrit 38.7 % (37.0-47.0); Hemoglobin 12.3 g/dl (12.0-16.0); Imm Gran Abs Auto 0.03 X10*3/uL (0.00-0.03); Imm Gran Pct Auto 0.3 % (0.0-0.4); Lymphocytes Absolute Auto 1.6 X10*3/uL (1.2-4.9); Lymphocytes Percent Auto 15.9 % (20-40); Mean Corpuscular HGB Conc 31.8 g/dl (31.0-35.0); Mean Corpuscular Hemoglobin 30.5 pg (27.0-33.0); Mean Platelet Volume 11.3 fL (9.4-12.3); Monocytes Absolute Auto 0.8 X10*3/uL (0.1-1.2); Monocytes Percent Auto 8.4 % (2-11); Neutrophils Absolute Auto 6.8 x10*3/uL (2.0-8.3); Neutrophils Percent Auto 67.9 % (45-73); Platelet Count 415 X10*3/uL (160-400); Red Blood Count 4.03 X10*6/uL (4.20-5.50); Red Cell Distribution Width 14.4 % (11.0-16.0)
[2024-01-29 13:33] LABS: Alanine Aminotransferase 14 U/L (0-31); Albumin Level 4.4 g/dL (3.5-5.0); Alkaline Phosphatase 93 U/L (39-117); Anion Gap 15 (12-20); Aspartate Amino Transferase 20 U/L (5-31); Bilirubin Total 0.4 mg/dL (0.0-1.0); Blood Urea Nitrogen 25 mg/dL (9-16); Calcium 10.4 mg/dL (8.4-10.2); Carbon Dioxide 27 mmol/L (22-29); Chloride 105 mmol/L (96-108); Estimated Glomerular Filt Rate 45; Glucose Random 88 mg/dL (60-115); Iron 66 mcg/dL (30-160); Percent Iron Saturation 23 % (15-50); Potassium 4.2 mmol/L (3.3-5.1); Sodium 143 mmol/L (135-145); Total Iron Binding Capacity 283 mcg/dL (228-428); Total Protein 7.5 g/dL (6.5-8.0); Unsaturated Iron Binding 217 ug/dL
[2024-01-29 13:47] LABS: Ferritin 222 ng/mL (10-250); TSH reflex Free T4 3.46 uIU/mL (0.32-4.0)
[2024-01-29 14:02] LABS: Vitamin B12 405 pg/mL (200-900)
== END 2024-01-29 10:12 | disposition home or self-care (01) ==
LOC: HO.WFDLDS 10:11
PROVIDERS: Visit Provider Physician Assistant
DX: N28.9 Disorder of kidney and ureter, unspecified (principal); R06.09 Other forms of dyspnea; R53.83 Other fatigue; N39.0 Urinary tract infection, site not specified; I48.0 Paroxysmal atrial fibrillation
CPT/HCPCS: 36415; 80053; 82607; 82728; 82746; 83540; 83735; 84443; 85025; 87086

== ENCOUNTER 2024-01-31 14:10 | Outpatient (REF) | payer MEDICARE, OTHER, SELFPAY ==
--- NOTE | ~2024-01-31 | XR_ITS ---
EXAMINATION: XR CHEST CLINICAL INFORMATION: Dyspnea, follow-up from previous chest x-ray. COMPARISON: January 12, 2024. TECHNIQUE: 2 views of the chest were obtained. FINDINGS: Lung volumes are low. There is no gross pneumothorax. Heart size is normal. Redemonstration of surgical hardware in the upper abdomen. Persistent diffuse interstitial opacities. Decrease of previously noted hazy opacities overlying the medial lower right lung. No significant pleural effusion. Degenerative changes in the thoracic spine. XR/XR chest 2V IMPRESSION: Persistent diffuse interstitial opacities. Decrease of previously noted hazy opacities overlying the medial lower right lung.
== END 2024-01-31 14:11 | disposition home or self-care (01) ==
LOC: HO.XRAY 14:10
PROVIDERS: Absent Provider Physician Assistant; PCP Physician Assistant; Visit Provider Internal Medicine
DX: R06.09 Other forms of dyspnea (principal)
CPT/HCPCS: 71046; 99212

== ENCOUNTER 2024-01-31 14:10 | Outpatient (AMB) | payer MEDICARE, OTHER, SELFPAY ==
--- NOTE | 2024-01-31 14:29 | A.OFFVIS_ITS ---
Vital Signs 01/31/24 14:37 Height 4 ft 10 in Weight 177 lb 11.081 oz BMI 37.1 BP 150/60 H Blood Pressure Location Lt brachial Position Sitting Pulse 61 Pulse Source Pulse Oximeter Intake Visit Reasons: [facility] Chemist Instrumentation Required: No Accompanied by: Self / Same As Patient Allergies bee pollen Allergy (Unknown, Verified 01/29/24 09:03) Unknown house dust mite Allergy (Unknown, Verified 01/29/24 09:03) Unknown adhesive tape Adverse Reaction (Intermediate, Verified 01/07/24 22:03) Rash Medication List - Last Reconciled 01/31/24 by Carlito Collier MD albuterol sulfate 90 mcg/actuation 2 puffs PO Q6H PRN amlodipine 10 mg PO DAILY atorvastatin 10 mg PO DAILY cholecalciferol (vitamin D3) 50 mcg PO DAILY fluticasone furoate-vilanterol 200-25 mcg/dose (Breo Ellipta) 1 ea inhalation DAILY fluticasone propionate 50 mcg/actuation 1 spray intranasal BID furosemide (Lasix) 20 mg PO DAILY ipratropium bromide intranasal Q12H meloxicam 15 mg PO DAILY metoprolol succinate ER 50 mg See Protocol PO DAILY oxycodone 5 mg PO TID PRN pantoprazole 40 mg PO DAILY@0630 rivaroxaban (Xarelto) 20 mg PO QPM sertraline 50 mg PO BEDTIME trazodone 100 mg PO BEDTIME vibegron (Gemtesa) 75 mg PO DAILY HPI Comments Details: Brenda returns for follow-up. She was recently the hospital for acute pyelonephritis/sepsis. In that context, she was diagnosed with atrial fibrillation rapid rate. She received IV beta-blockers and then converted to sinus rhythm. Overall, she feels okay but some tiredness. Otherwise, no prior cardiac history. Getting along fine with no major concerns. 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) Patient Tobacco Use Status: Former Tobacco user Tobacco use type: Cigarette Cigarettes Per Day: 15 Years Smoked: 10 e-Cigarette/Vaping Use: Never Used Second Hand Smoke Exposure: No Substance Use Type: Painkillers service: No Current occupational status: retired Cognitive needs: No Hearing needs: Yes (hearing aids) Vision needs: No Review of Systems Const Denies chills, Denies fatigue, Denies fever(s), Denies weight gain and Denies weight loss Card Denies chest pain, Denies leg edema, Denies lightheadedness, Denies palpitations, Denies dyspnea on exertion and Denies orthopnea Resp Denies cough and Denies dyspnea on exertion GI Reports melena, Denies hematochezia and Denies change in stool character Musc Denies muscle weakness and Denies radiating pain into limb Endo Denies fatigue and Denies palpitations Physical Exam Vital Signs: Last Vital Signs Pulse 61 01/31/24 14:37 BP 150/60 H 01/31/24 14:37 BMI result Body Mass Index 37.1 Const General: comfortable and no acute distress Orientation/consciousness: patient oriented x3 HEENT Other: Unremarkable Head: Yes normal to inspection Neck Neck: Yes normal visual inspection Chest Chest palpation & inspection: normal inspection of the chest Resp Auscultation: crackles bilateral at the base Cardio Palpation: normal PMI Heart sounds: S1 normal heart sound present, S2 normal heart sound present, no gallops, no murmurs and no rubs GI Palpation (GI): Soft to palpation Back/Spine/Pelvis Other: unremarkable Skin General skin exam: no rashes or lesions noted Neuro General: patient oriented x3 Extrem General: Yes normal to inspection Psych Mental Status: mental status grossly normal Assessment & Plan Assessment & Plan (1) Paroxysmal A-fib: Code(s): I48.0 - Paroxysmal atrial fibrillation Category: Medical Plan: Continue beta-blockers. She is getting some tiredness type symptoms but not clear if it is because of the recent admission or from beta-blockers. May try that at nighttime. Continue anticoagulation. Echocardiogram with LVEF of 60-65%. Moderate septal hypertrophy. Otherwise unremarkable. (2) HTN (hypertension): Code(s): I10 - Essential (primary) hypertension Category: Medical Plan: She used to be on amlodipine as well as losartan 100 mg daily. Losartan has been discontinued because of elevated creatinine during hospitalization. As the blood pressure is on the higher side, resume it smaller dose. Check labs in 1-2 weeks after this. If necessary, we can increase it back to her usual dose. Discussed. Plan Discussed with daughter over the phone. Orders: Orders Basic Metabolic Panel 01/29/24 E83.52 - Hypercalcemia Medications: New losartan 50 mg PO DAILY 90 tabs 3RF Coding Level of Care Code Est Pt Level 4 (88471) Diagnoses Paroxysmal A-fib I48.0 HTN (hypertension) I10
[2024-01-31 14:37] VITALS: BP 150/60; PULSE 61; BMI 37.1
== END 2024-01-31 14:58 | disposition home or self-care (01) ==
PROVIDERS: PCP Registered Nurse; Visit Provider Internal Medicine
DX: I48.0 Paroxysmal atrial fibrillation (principal); I10 Essential (primary) hypertension
CPT/HCPCS: 99214

== ENCOUNTER 2024-02-05 11:09 | Outpatient (REF) | payer MEDICARE, OTHER, SELFPAY ==
--- NOTE | ~2024-02-05 | US_ITS ---
EXAMINATION: US RETROPERITONEAL LIMITED (RENAL ONLY) CLINICAL INFORMATION: Lesion of the right [place] kidney. COMPARISON: CT abdomen and pelvis 01/07/2024. TECHNIQUE: Real-time imaging of the kidneys. Technically limited study secondary to bowel gas. FINDINGS: RIGHT KIDNEY: 9.2 x 4.0 x 3.5 cm (SAG x AP x TRV). The kidney is normal in size, contour, and echogenicity. Renal cortical thickness is normal. No renal calculi or hydronephrosis. There is a hypoechoic mass-like area measuring 1.7 cm in the [id number]-wg-[id number] kidney that corresponds with the ill-defined area of hypoattenuation seen on the prior CT scan which measured a maximum of 2.6 cm. Continued follow-up is needed and recommend a follow-up ultrasound in 3 months. LEFT KIDNEY: 8.2 x 4.0 x 4.0 cm (SAG x AP x TRV). The kidney is normal in size, contour, and echogenicity. Renal cortical thickness is normal. No calculi or focal parenchymal lesions. No hydronephrosis. US/US renal BI IMPRESSION: Hypoechoic mass-like area in the right kidney corresponds with the ill-defined area of hypoattenuation seen on the prior CT scan. Continued follow-up is needed and recommend a follow-up ultrasound in 3 months.
== END 2024-02-05 11:10 | disposition home or self-care (01) ==
LOC: HO.US 11:09
PROVIDERS: PCP Physician Assistant; Visit Provider Physician Assistant
DX: N28.9 Disorder of kidney and ureter, unspecified (principal)
CPT/HCPCS: 76775

== ENCOUNTER 2024-02-06 11:20 | Outpatient (AMB) | payer MEDICARE, OTHER, SELFPAY ==
--- NOTE | 2024-02-06 11:31 | A.OFFPC_ITS ---
Vital Signs 02/06/24 11:32 Height 4 ft 10 in Weight 174 lb 6 oz BMI 36.4 BP 138/66 Blood Pressure Location Lt brachial Position Sitting Pulse 56 Pulse Source Pulse Oximeter Pulse Oximetry (%) 96 Oxygen Delivery Method Room Air Intake Visit Reasons: labs/meds/ 30 min Intake Note: Follow up. Needs refill on metoprolol 50 mg and Losartan 50 mg Local Coordinator Required: No Allergies bee pollen Allergy (Unknown, Verified 02/06/24 11:32) Unknown house dust mite Allergy (Unknown, Verified 02/06/24 11:32) Unknown adhesive tape Adverse Reaction (Intermediate, Verified 02/06/24 11:32) Rash Medication List - Last Reconciled 02/06/24 by Allison Ham PA-C albuterol sulfate 90 mcg/actuation 2 puffs PO Q6H PRN amlodipine 10 mg PO DAILY atorvastatin 10 mg PO DAILY cholecalciferol (vitamin D3) 50 mcg PO DAILY fluticasone furoate-vilanterol 200-25 mcg/dose (Breo Ellipta) 1 ea inhalation DAILY fluticasone propionate 50 mcg/actuation 1 spray intranasal BID ipratropium bromide intranasal Q12H losartan 50 mg PO DAILY metoprolol succinate ER 50 mg See Protocol PO DAILY oxycodone 5 mg PO TID PRN pantoprazole 40 mg PO DAILY@0630 rivaroxaban (Xarelto) 20 mg PO QPM sertraline 50 mg PO BEDTIME trazodone 100 mg PO BEDTIME vibegron (Gemtesa) 75 mg PO DAILY Tobacco use date assessed: 01/29/24 Dental Screening Dental Screen Date: 01/29/24 HPI labs/meds/ 30 min HPI Details Patient is an 88-year-old female who presents today for a follow up. 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 She has a significant past medical history of hypertension, CKD, GERD, chronic pain disorder, s/p laminectomy syndrome, mood disorder, urge incontinence and new diagnosis of AFib. CV: bp today is 138/66. At our last visit I started her on lasix which she states that it has been very helpful for the swelling. She saw cardiology last week and was restarted on losartan. She is currently on amlodipine 10 mg, losartan 50 mg, metoprolol 50 mg. Uro: u/s was done yesterday. On CT of the abdomen and pelvis that did show a possible complex cyst on the right kidney. No known history of this. She was referred to urology. PULM: She does have a hx of COPD. Musculoskeletal: Has a history of failed back syndrome. She states that her chronic pain syndrome is controlled with oxycodone 5 mg 3 times a day. She has been on meloxicam and did not realize that she should not be taking this with the Xarelto Psych: She has been on Zoloft 50 mg and trazodone 100 mg for some time and feels well-controlled with this. She states that she does not go for any routine screening tests. She does follow with a regional sales director who has offered her a colonoscopy every year but she declines it. She follows for her pantoprazole. She has a hx of osteoporosis and states that her mother had severe osteoporisis. She is lifting weights again. She is doing bone and balance . She was on vitamin D and calcium. Recent labs showed elevated calcium and she was advised to stop the calcium but continue vitamin-D [facility] Medical History (Updated 02/06/24 @ 12:13 by Allison Ham PA-C) Generalized anxiety disorder Insomnia Major depression, recurrent, chronic Arthritis High blood cholesterol COPD (chronic obstructive pulmonary disease) Urge incontinence Joint pain Chronic back pain HTN (hypertension) Bleeding hemorrhoid Back pain with history of spinal surgery Family History (Updated 01/31/24 @ 14:37 by Arielle Us CMA) Father Thrombosis Social History Household Members: None Housing: Apartment Do you presently have visiting nurse or other home services: Yes (AERONAUTICAL ENGINEERING PROFESSOR for housekeeping 2 times per week) Patient Tobacco Use Status: Former Tobacco user Tobacco use type: Cigarette Cigarettes Per Day: 15 Years Smoked: 10 e-Cigarette/Vaping Use: Never Used Second Hand Smoke Exposure: No Substance Use Type: Painkillers service: No Current occupational status: retired Cognitive needs: No Hearing needs: Yes (hearing aids) Vision needs: No Questionnaire Thrive Questionnaire Date Thrive assessed: 01/29/24 RAYNE-7 AMB Questionnaire RAYNE-7 Date RAYNE - 7 assessed: 01/29/24 Source: Developed by Drs. Rommel L. EliseKaylee trotter, Al Ny and colleagues, with an educational ken from [email or web address]. Physical exam (Primary Care) Vital Signs: Last Vital Signs Pulse 56 02/06/24 11:32 BP 138/66 02/06/24 11:32 Pulse Ox 96 02/06/24 11:32 Oxygen Delivery Method Room Air 02/06/24 11:32 BMI result Body Mass Index 36.4 Tobacco/Smoking Status: Tobacco use Status Tobacco use date assessed 01/29/24 01/29/24 09:16 Patient Tobacco Use Status Former Tobacco user 01/29/24 07:59 Tobacco use type Cigarette 01/29/24 07:59 e-Cigarette/Vaping Use Never Used 01/29/24 09:16 Thrive Assessment: Date of Thrive Assessment Date Thrive assessed 01/29/24 01/29/24 09:16 Const General: healthy appearing Orientation/consciousness: patient oriented x3 HENMT Ears: hearing grossly normal bilaterally Neck Thyroid: Thyroid normal Lymphatic: no lymphadenopathy noted Resp Auscultation: clear to auscultation bilaterally Cardio Rate: regular rate Rhythm: regular rhythm Heart sounds: S1 normal heart sound present and S2 normal heart sound present GI Inspection: Yes normal to inspection Palpation (GI): Soft to palpation and Other GI palpation findings present (nonte nder, no cva tenderness) Auscultation: normoactive bowel sounds Rectal Exam - Female: deferred Skin General skin exam: no rashes or lesions noted Neuro General: patient oriented x3, gait normal and no focal motor deficits Results Reviewed Results Reviewed: Laboratory Tests 01/08/24 01/29/24 14:23 10:12 WBC 10.0 RBC 4.03 L Hgb 12.3 Hct 38.7 D Plt Count 415 H Sodium 143 Potassium 4.2 Chloride 105 Carbon Dioxide 27 Anion Gap 15 BUN 25 H Creatinine 1.14 Estimated GFR 45 Random Glucose 88 Calcium 10.4 H D Magnesium 2.0 Iron 66 Ferritin 222 AST 20 ALT 14 Vitamin B12 405 TSH 1.89 3.46 Free T4 0.95 Free T3 1.9 L Assessment and Plan Assessment & Plan (1) HTN (hypertension): Code(s): I10 - Essential (primary) hypertension Qualifiers: Hypertension type: primary hypertension Qualified Code(s): I10 - Essential (primary) hypertension Plan: well controlled (2) Generalized anxiety disorder: Code(s): F41.1 - Generalized anxiety disorder Plan: stable and well controlled (3) Hypercalcemia: Code(s): E83.52 - Hypercalcemia Plan: stop supplement and recheck labs (4) High blood cholesterol: Code(s): E78.00 - Pure hypercholesterolemia, unspecified Plan: lipids ordered. lfts reviewed (5) Failed back syndrome, lumbar: Code(s): M96.1 - Postlaminectomy syndrome, not elsewhere classified Plan: csc signed today. stopped meloxicam due to decreased renal function and use of Xarelto. Discussed that she may use Tylenol regularly. (6) Paroxysmal A-fib: Code(s): I48.0 - Paroxysmal atrial fibrillation Plan: Continue current regimen and follow up with Cardiology. Plan Bone density ordered. We will follow up pending test results. Orders: Orders Basic Metabolic Panel Today E83.52 - Hypercalcemia, F41.1 - Generalized anxiety disorder, I10 - Essential (primary) hypertension XR DEXA axial skeleton Today Z78.0 - Asymptomatic menopausal state Lipid Panel Today E78.00 - Pure hypercholesterolemia, unspecified, I10 - Essential (primary) hypertension Coding Level of Care Code Est Pt Level 4 (31974) Complex EM visit Add On G2211 Diagnoses Primary hypertension I10 Hypertension type: primary hypertension Generalized anxiety disorder F41.1 Hypercalcemia E83.52 High blood cholesterol E78.00 Failed back syndrome, lumbar M96.1 Paroxysmal A-fib I48.0
[2024-02-06 11:32] VITALS: BP 138/66; PULSE 56; O2SAT 96; BMI 36.4
== END 2024-02-06 12:22 | disposition home or self-care (01) ==
PROVIDERS: PCP Physician Assistant; Visit Provider Physician Assistant
DX: I10 Essential (primary) hypertension (principal); F41.1 Generalized anxiety disorder; E83.52 Hypercalcemia; E78.00 Pure hypercholesterolemia, unspecified; M96.1 Postlaminectomy syndrome, not elsewhere classified; I48.0 Paroxysmal atrial fibrillation
CPT/HCPCS: 99214; G2211

== ENCOUNTER 2024-02-14 08:26 | Outpatient (REF) | payer MEDICARE, OTHER, SELFPAY ==
[2024-02-14 18:21] LABS: Potassium 4.4 mmol/L (3.3-5.1); Sodium 144 mmol/L (135-145)
[2024-02-14 18:22] LABS: Anion Gap 15 (12-20); Blood Urea Nitrogen 24 mg/dL (9-16); Calcium 9.9 mg/dL (8.4-10.2); Carbon Dioxide 23 mmol/L (22-29); Chloride 110 mmol/L (96-108); Cholesterol 145 mg/dL (<200); Estimated Glomerular Filt Rate 55; Glucose Random 97 mg/dL (60-115); HDL Cholesterol 49 mg/dL (>40); LDL Cholesterol Calculated 70 mg/dL (<100); Triglycerides 132 mg/dL (<150)
== END 2024-02-14 08:27 | disposition home or self-care (01) ==
LOC: HO.LAB 08:26
PROVIDERS: Absent Provider Physician Assistant; PCP Physician Assistant; Visit Provider Internal Medicine
DX: E83.52 Hypercalcemia (principal); I10 Essential (primary) hypertension; F41.1 Generalized anxiety disorder; E78.00 Pure hypercholesterolemia, unspecified
CPT/HCPCS: 36415; 80048; 80061

== ENCOUNTER 2024-02-28 12:41 | Outpatient (REF) | payer MEDICARE, OTHER, SELFPAY ==
--- NOTE | ~2024-02-28 | MM_ITS ---
EXAMINATION: BONE DENSITOMETRY CLINICAL INDICATION: Asymptomatic menopausal state. COMPARISON: Baseline BD dated 03/17/2007, left hip. TECHNIQUE: Using a [employer] DXA System (software version: 13.1) manufactured by [employer], dual-energy x-ray absorptiometry was performed of the left hip and left forearm radius 33%. The images are of good technical quality. Summary results are attached. FINDINGS: LEFT FEMUR, NECK: Current: BMD 0.780 g/cm2, Z-score 0.3, T-score -1.9, osteopenia. Baseline: BMD 0.774 g/cm2. LEFT FEMUR, TOTAL: Current: BMD 0.804 g/cm2, Z-score 0.4, T-score -1.6, osteopenia, 5.0% decrease from baseline (<5% change is not significant). Baseline: BMD 0.846 g/cm2. LEFT FOREARM RADIUS 33%: BMD 0.644 g/cm2, Z-score 0.7, T-score -2.6, osteoporosis. IDENTIFIED RISK FACTORS: Early menopause, secondary osteoporosis, height loss. HISTORY OF FRACTURE: None listed. MEDICATIONS: Vitamin D. MM/XR DEXA appendicular skeleton IMPRESSION: 1. DIAGNOSIS: Osteoporosis based on the lowest T-score value of -2.6 in the forearm radius 33% applying World Health Organization criteria. 2. 10-YEAR FRACTURE RISK PREDICTION, FRAX: According to the guidelines, FRAX calculation should only be performed on patients in the osteopenia bone density category. Therefore, FRAX was not performed on this patient. 3. Treatment Recommendations: NOF guidelines recommend consideration for treatment in postmenopausal women and men age 50 and older presenting with the following: -A hip or vertebral (clinical or morphometric) fracture. -T-score less than or equal to -2.5 at the femoral neck or spine after appropriate evaluation to exclude secondary causes. -Low bone mass at the hip or spine and a 10-year fracture probability by FRAX of greater than or equal to 3% for hip fracture or greater than or equal to 20% for major osteoporotic fracture based on the [place] adapted WHO algorithm. 4. Other Recommendations: All treatment decisions require clinical judgment and consideration of individual patient factors, including patient preferences, comorbidities, previous drug use, risk factors not captured in the FRAX model (e.g. frailty, falls, vitamin D deficiency, increased bone turnover, interval significant decline in bone density) and possible under or overestimation of fracture risk by FRAX. Additional medical evaluation for secondary cause of low bone mineral density may be appropriate. FUTURE SCAN RECOMMENDATION: People with diagnosed cases of osteoporosis or at high risk for fracture should have regular bone mineral density tests. For patients eligible for Medicare, routine testing is allowed once every 2 years. The testing frequency can be increased to one year for patients who have rapidly progressing disease, those who are receiving or discontinuing medical therapy to restore bone mass, or have additional risk factors.
== END 2024-02-28 12:42 | disposition home or self-care (01) ==
LOC: HO.MAMMO 12:41
PROVIDERS: PCP Physician Assistant; Visit Provider Physician Assistant
DX: M81.0 Age-related osteoporosis without current pathological fracture (principal)
CPT/HCPCS: 77081

== ENCOUNTER 2024-03-05 10:07 | Outpatient (AMB) | payer MEDICARE, OTHER, SELFPAY ==
--- NOTE | 2024-03-05 10:20 | MHC.PC.OV ---
Vital Signs 03/05/24 10:28 Height 4 ft 10 in Weight 174 lb 2 oz BMI 36.4 BP 132/78 Blood Pressure Location Lt brachial Position Sitting Respiration 16 Pulse 80 Pulse Source Pulse Oximeter Pulse Oximetry (%) 97 Oxygen Delivery Method Room Air Intake Visit Reasons: Meds concerns Intake Note: Discuss going back on Meloxicam for joint pain in shoulders and knees. Discuss lab results from 02/13/25. Allergies bee pollen Allergy (Unknown, Verified 02/06/24 11:32) Unknown house dust mite Allergy (Unknown, Verified 02/06/24 11:32) Unknown adhesive tape Adverse Reaction (Intermediate, Verified 02/06/24 11:32) Rash Medication List - Last Reconciled 03/05/24 by Allison Ham PA-C albuterol sulfate 90 mcg/actuation 2 puffs PO Q6H PRN amlodipine 10 mg PO DAILY atorvastatin 10 mg PO DAILY cholecalciferol (vitamin D3) 50 mcg PO DAILY fluticasone furoate-vilanterol 200-25 mcg/dose (Breo Ellipta) 1 ea inhalation DAILY fluticasone propionate 50 mcg/actuation 1 spray intranasal BID ipratropium bromide intranasal Q12H losartan 50 mg PO DAILY metoprolol succinate ER 50 mg See Protocol PO DAILY 90 days oxycodone 5 mg PO Q8H PRN 28 days pantoprazole 40 mg PO DAILY@0630 rivaroxaban (Xarelto) 20 mg PO QPM sertraline 50 mg PO BEDTIME trazodone 100 mg PO BEDTIME vibegron (Gemtesa) 75 mg PO DAILY Tobacco use date assessed: 01/29/24 Dental Screening Dental Screen Date: 01/29/24 HPI Meds concerns HPI Details Patient is an 88-year-old female who presents today for a follow up. 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 She has a significant past medical history of hypertension, CKD, GERD, chronic pain disorder, s/p laminectomy syndrome, mood disorder, urge incontinence and new diagnosis of AFib. CV: bp today is 132/78. She is currently on amlodipine 10 mg, losartan 50 mg, metoprolol 50 mg. Bps at home 116/74, 130/75, 126/73. Denies any chest pain, shortness a breath or palpitations. Uro: u/s was done yesterday. On CT of the abdomen and pelvis that did show a possible complex cyst on the right kidney. No known history of this. She was referred to urology. PULM: She does have a hx of COPD. Musculoskeletal: Has a history of failed back syndrome. She states that her chronic pain syndrome is controlled with oxycodone 5 mg 3 times a day. She has been on meloxicam and did not realize that she should not be taking this with the Xarelto and her decreased kidney function. She has trialed Tylenol in the past and states that it is somewhat effective but she has not taken this consistently. Psych: She has been on Zoloft 50 mg and trazodone 100 mg for some time and feels well-controlled with this. She states that she does not go for any routine screening tests. She does follow with a leather softener who has offered her a colonoscopy every year but she declines it. She follows for her pantoprazole. She has a hx of osteoporosis and states that her mother had severe osteoporisis. She is lifting weights again. She is doing bone and balance . She was on vitamin D and calcium. Recent labs showed elevated calcium and she was advised to stop the calcium but continue vitamin-D ON LICENSE OF [facility] Medical History (Updated 02/06/24 @ 12:13 by Allison Hma PA-C) Generalized anxiety disorder Insomnia Major depression, recurrent, chronic Arthritis High blood cholesterol COPD (chronic obstructive pulmonary disease) Urge incontinence Joint pain Chronic back pain HTN (hypertension) Bleeding hemorrhoid Back pain with history of spinal surgery Family History (Updated 01/31/24 @ 14:37 by Arielle Us CMA) Father Thrombosis Social History Household Members: None Housing: Apartment Do you presently have visiting nurse or other home services: Yes (AUTOMATIC LEHR OPERATOR for housekeeping 2 times per week) Patient Tobacco Use Status: Former Tobacco user Tobacco use type: Cigarette Cigarettes Per Day: 15 Years Smoked: 10 e-Cigarette/Vaping Use: Never Used Second Hand Smoke Exposure: No Substance Use Type: Painkillers service: No Current occupational status: retired Cognitive needs: No Hearing needs: Yes (hearing aids) Vision needs: No Questionnaire Thrive Questionnaire Date Thrive assessed: 01/29/24 RAYNE-7 AMB Questionnaire RAYNE-7 Date RAYNE - 7 assessed: 01/29/24 Source: Developed by Drs. Rommel Olivares, Kaylee Fabian, Al Ny and colleagues, with an educational ken from [employer]. Physical exam (Primary Care) Tobacco/Smoking Status: Tobacco use Status Tobacco use date assessed 01/29/24 02/06/24 11:40 Patient Tobacco Use Status Former Tobacco user 02/06/24 11:40 Tobacco use type Cigarette 02/06/24 11:40 e-Cigarette/Vaping Use Never Used 02/06/24 11:40 Thrive Assessment: Date of Thrive Assessment Date Thrive assessed 01/29/24 02/06/24 11:40 Const Orientation/consciousness: patient oriented x3 HENMT Ears: hearing grossly normal bilaterally Neck Thyroid: Thyroid normal Lymphatic: no lymphadenopathy noted Resp Auscultation: clear to auscultation bilaterally Cardio Rate: regular rate Rhythm: regular rhythm Heart sounds: S1 normal heart sound present and S2 normal heart sound present GI Inspection: Yes normal to inspection Palpation (GI): Soft to palpation and Other GI palpation findings present (nontender, no cva tenderness) Auscultation: normoactive bowel sounds Rectal Exam - Female: deferred Skin General skin exam: no rashes or lesions noted Neuro General: patient oriented x3, gait normal and no focal motor deficits Assessment and Plan Assessment & Plan (1) HTN (hypertension): Code(s): I10 - Essential (primary) hypertension Qualifiers: Hypertension type: primary hypertension Qualified Code(s): I10 - Essential (primary) hypertension Plan: WNL. Continue current regimen (2) Major depression, recurrent, chronic: Code(s): F33.9 - Major depressive disorder, recurrent, unspecified Plan: Currently well-controlled. Refilled sertraline. (3) Failed back syndrome, lumbar: Code(s): M96.1 - Postlaminectomy syndrome, not elsewhere classified Plan: Advised to try Tylenol and Voltaren gel. She is on a CSC for her chronic back pain with oxycodone. She does not wish to adjust any narcotic regimen at this time. She will let me know how her pain is controlled with this regimen. We will follow up in a couple of months. Sooner if needed. Patient understands and agrees with the plan. Medications: New sertraline 50 mg PO BEDTIME 90 tabs 3RF pantoprazole 40 mg PO DAILY@0630 90 tabs 3RF Coding Level of Care Code Est Pt Level 4 (66458) Diagnoses Primary hypertension I10 Hypertension type: primary hypertension Major depression, recurrent, chronic F33.9 Failed back syndrome, lumbar M96.1
[2024-03-05 10:28] VITALS: BP 132/78; PULSE 80; RESP 16; O2SAT 97; BMI 36.4
== END 2024-03-05 11:00 | disposition home or self-care (01) ==
PROVIDERS: PCP Physician Assistant; Visit Provider Physician Assistant
DX: I10 Essential (primary) hypertension (principal); F33.9 Major depressive disorder, recurrent, unspecified; M96.1 Postlaminectomy syndrome, not elsewhere classified
CPT/HCPCS: 99214

== ENCOUNTER 2024-03-24 13:05 | Outpatient (AMB) | payer MEDICARE, OTHER, SELFPAY ==
--- NOTE | 2024-03-24 13:14 | MHC.OFFVIS ---
Vital Signs 03/24/24 13:17 Height 4 ft 10.86 in Weight 177 lb 7.554 oz BMI 36.0 BP 140/68 H Blood Pressure Location Lt brachial Position Sitting Pulse 84 Pulse Source Pulse Oximeter Intake Visit Reasons: Osteoporosis/LVM Intake Note: Patient present for Osteoporosis follow up. Energy Conservation Specialist Required: No Accompanied by: Daughter Allergies bee pollen Allergy (Unknown, Verified 03/24/24 13:18) Unknown house dust mite Allergy (Unknown, Verified 03/24/24 13:18) Unknown adhesive tape Adverse Reaction (Intermediate, Verified 03/24/24 13:18) Rash HPI Comments Details: 88 YO Female is seen in consultation at the request of PCP for Osteoporosis. First diagnosed in 25 yrs ago .Took Fosamax for 1 yr . 25 yrs ago . Never saw endo before . Tolerated treatment well without complication. history of pathologic fracture in right wrist when falling but no ONJ. Has several servings of dietary calcium per day in the form of cheese, broccoli . Stopped Taking Calcium supplement. Takes 2000 IU of Vitamin D daily. Takes PPI, takes anticoagulant Xarelto , antiepileptic or glucocorticoid medication. Does weight bearing exercise 2 days per week in the form of weight exercises . Fracture history: No Height loss: Yes EMERGENCY SERVICES PROFESSIONAL history: menarche at age12 - menopause at age 51 - had menses each mo Denies history of Kidney stones: Has family history of Osteoporosis in mother and hip fracture.Sister has osteoporosis UTD on dental cleanings and sees dentist every 6 months. No planned upcoming dental work or extractions. DXA dated 02/28/24:FINDINGS: LEFT FEMUR, NECK: Current: BMD 0.780 g/cm2, Z-score 0.3, T-score -1.9, osteopenia. Baseline: BMD 0.774 g/cm2. LEFT FEMUR, TOTAL: Current: BMD 0.804 g/cm2, Z-score 0.4, T-score -1.6, osteopenia, 5.0% decrease from baseline (<5% change is not significant). Baseline: BMD 0.846 g/cm2. LEFT FOREARM RADIUS 33%: BMD 0.644 g/cm2, Z-score 0.7, T-score -2.6, osteoporosis. IDENTIFIED RISK FACTORS: Early menopause, secondary osteoporosis, height loss. HISTORY OF FRACTURE: None listed. MEDICATIONS: Vitamin D. MM/XR DEXA appendicular skeleton IMPRESSION: 1. DIAGNOSIS: Osteoporosis based on the lowest T-score value of -2.6 in the forearm radius 33% applying World Health Organization criteria. Labs: [facility] Medical History (Updated 03/12/24 @ 08:09 by Allison Ham PA-C) Generalized anxiety disorder Insomnia Major depression, recurrent, chronic Arthritis High blood cholesterol COPD (chronic obstructive pulmonary disease) Urge incontinence Joint pain Chronic back pain HTN (hypertension) Bleeding hemorrhoid Back pain with history of spinal surgery Surgical History (Updated 03/24/24 @ 13:20 by VARSHA Putnam) History of back surgery History of surgery Family History (Updated 03/24/24 @ 13:21 by VARSHA Putnam) Father Thrombosis Mother Diabetes Heart rate problem Social History Household Members: None Housing: Apartment Do you presently have visiting nurse or other home services: Yes (TECHNICAL SERVICES MANAGER for housekeeping 2 times per week) Patient Tobacco Use Status: Former Tobacco user Tobacco use type: Cigarette Cigarettes Per Day: 15 Years Smoked: 10 e-Cigarette/Vaping Use: Never Used Second Hand Smoke Exposure: No Substance Use Type: Painkillers service: No Current occupational status: retired Cognitive needs: No Hearing needs: Yes (hearing aids) Vision needs: No Physical Exam Vital Signs: BMI result Body Mass Index 36.0 There are no Cushingoid features. Absence of blue sclera. Absence of kyphosis. Thyroid gland is of nl size and weighs 15 gms. There are no thyroid nodules palpated. Lungs CTA. Heart S1 S2 Reg R/R Abdominal exam benign. Muscle strength 5/5 . Examination of spine reveals absence of tenderness on palpation Assessment & Plan Assessment & Plan (1) Osteoporosis: Code(s): M81.0 - Age-related osteoporosis without current pathological fracture Category: Medical Plan: This is a 8-year-old white female with a history of osteoporosis of left forearm. Rule out secondary causes. According to orthopedic note, The CT of the lumbar spine shows a fusion from L3 to the sacrum, osteoporosis and thoraco lumbar scoliosis. I explained to the patient why she is not a surgical candidate. The main reason is obviously osteoporosis. While the lumbar spine bone density could not be measured, This suggests the presence of severe osteoporosis of the lumbar spine. There is a prior history of wrist fracture Plan is to check a 24 hour urine for calcium and creatinine, 25 hydroxy vitamin-D, SPEP, urine immunofixation. Will ensure 1200 mg of calcium continue vitamin-D supplementation. Because of the above, assuming secondary workup was negative,Would strongly favor anabolic therapy initially proceeded by anti resorptive therapy because of high risk of fracture and severe osteoporosis noted on imaging and prior history of wrist fracture Orders: Orders Protein Electrophoresis, Serum Today M81.0 - Age-related osteoporosis without current pathological fracture Immunofixation, Random Urine Today M81.0 - Age-related osteoporosis without current pathological fracture Calcium, 24 Hr Ur Today M81.0 - Age-related osteoporosis without current pathological fracture Creatinine, 24 Hr Group Today M81.0 - Age-related osteoporosis without current pathological fracture Vitamin D 25-OH Total Today M81.0 - Age-related osteoporosis without current pathological fracture Coding Level of Care Code New Pt Level 4 (89380) Diagnoses Osteoporosis M81.0
[2024-03-24 13:17] VITALS: BP 140/68; PULSE 84; BMI 36.0
== END 2024-03-24 14:19 | disposition home or self-care (01) ==
PROVIDERS: PCP Physician Assistant; Visit Provider Internal Medicine Endocrinology, Diabetes & Metabolism
DX: M81.0 Age-related osteoporosis without current pathological fracture (principal)
CPT/HCPCS: 99204

== ENCOUNTER → 2024-03-24 13:05 | Outpatient (BNVA) | payer MEDICARE, OTHER, SELFPAY | PROVIDERS: PCP Physician Assistant; Visit Provider Internal Medicine Endocrinology, Diabetes & Metabolism | DX: M81.0 Age-related osteoporosis without current pathological fracture (principal) | CPT/HCPCS: 99202 ==

== ENCOUNTER 2024-04-09 15:26 | Outpatient (AMB) | payer MEDICARE, OTHER, SELFPAY ==
--- NOTE | 2024-04-09 14:49 | A.OFFPC_ITS ---
Vital Signs 04/09/24 15:30 Height 4 ft 10.86 in Weight 174 lb 2 oz BMI 35.3 BP 128/76 Blood Pressure Location Rt brachial Position Sitting Respiration 14 Pulse 92 Pulse Source Pulse Oximeter Pulse Oximetry (%) 92 Oxygen Delivery Method Room Air Intake Visit Reasons: Back/neck pain Intake Note: Back and neck pain Back Stayer Required: No Allergies bee pollen Allergy (Unknown, Verified 04/09/24 14:49) Unknown house dust mite Allergy (Unknown, Verified 04/09/24 14:49) Unknown adhesive tape Adverse Reaction (Intermediate, Verified 04/09/24 14:49) Rash Medication List - Last Reconciled 04/09/24 by Allison Ham PA-C albuterol sulfate 90 mcg/actuation 2 puffs PO Q6H PRN amlodipine 10 mg PO DAILY atorvastatin 10 mg PO DAILY cholecalciferol (vitamin D3) 50 mcg PO DAILY fluticasone furoate-vilanterol 200-25 mcg/dose (Breo Ellipta) 1 ea inhalation DAILY fluticasone propionate 50 mcg/actuation 1 spray intranasal BID ipratropium bromide 2 sprays intranasal Q12H losartan 50 mg PO DAILY metoprolol succinate ER 50 mg See Protocol PO DAILY 90 days oxycodone 5 mg PO Q8H PRN 28 days pantoprazole 40 mg PO DAILY@0630 prednisone take 3 tab po x 3 days, take 2 tab po x 3 days, take 1 tab po x 3 days; rivaroxaban (Xarelto) 20 mg PO QPM sertraline 50 mg PO BEDTIME trazodone 100 mg PO BEDTIME vibegron (Gemtesa) 75 mg PO DAILY Tobacco use date assessed: 01/29/24 Dental Screening Dental Screen Date: 01/29/24 HPI Back/neck pain HPI Details Patient is an 88-year-old female who presents today for a follow up. She states that her previous PCP started it manager property practice and has been unable to keep her as a patient. She has a significant past medical history of hypertension, CKD, GERD, chronic pain disorder, s/p laminectomy syndrome, mood disorder, urge incontinence and AFib. She is accompanied today by her daughter. CV: bp today is 128/76. She is currently on amlodipine 10 mg, losartan 50 mg, metoprolol 50 mg. Compliant with Xarelto. Follows with cardiology. Bps at home wnl. Denies any chest pain, shortness a breath or palpitations. Uro: On CT of the abdomen and pelvis that did show a possible complex cyst on the right kidney. No known history of this. She was referred to urology. PULM: She does have a hx of COPD. Musculoskeletal: She states that on 04/02 she lifted a grocery bag and the next day woke up with increased neck pain with radiation into her shoulders. It mostly radiates to the right shoulder. She had a hard time lying on her right side because of the pain. She states her neck is just tight and very sensitive. She has been using Tylenol and oxycodone as prescribed. It does take the edge off. I did send in a short term prescription of a prednisone taper. She says that this was effective but it upsets her stomach. She has an appointment with her back specialist, Dr. Lopez, next week to discuss an injection. She Has a history of failed back syndrome. She states that her chronic pain syndrome is controlled with oxycodone 5 mg 3 times a day. Psych: She has been on Zoloft 50 mg and trazodone 100 mg for some time and feels well-controlled with this. She states that she does not go for any routine screening tests. She does follow with a head machine feeder who has offered her a colonoscopy every year but she declines it. She follows for her pantoprazole. Endo: Following with endocrinology for her osteoporosis. She has a hx of osteoporosis and states that her mother had severe osteoporosis. She is lifting weights again. She is doing bone and balance . She was on vitamin D and calcium. Recent labs showed elevated calcium and she was advised to stop the c alcium but continue vitamin-D [facility] Medical History (Updated 03/12/24 @ 08:09 by Allison Ham PA-C) Generalized anxiety disorder Insomnia Major depression, recurrent, chronic Arthritis High blood cholesterol COPD (chronic obstructive pulmonary disease) Urge incontinence Joint pain Chronic back pain HTN (hypertension) Bleeding hemorrhoid Back pain with history of spinal surgery Surgical History History of back surgery History of surgery Family History Father Thrombosis Mother Diabetes Heart rate problem Social History Household Members: None Housing: Apartment Do you presently have visiting nurse or other home services: Yes ([employer] for housekeeping 2 times per week) Patient Tobacco Use Status: Former Tobacco user Tobacco use type: Cigarette Cigarettes Per Day: 15 Years Smoked: 10 e-Cigarette/Vaping Use: Never Used Second Hand Smoke Exposure: No Substance Use Type: Painkillers service: No Current occupational status: retired Cognitive needs: No Hearing needs: Yes (hearing aids) Vision needs: No Questionnaire Thrive Questionnaire Date Thrive assessed: 01/29/24 RAYNE-7 AMB Questionnaire RAYNE-7 Date RAYNE - 7 assessed: 01/29/24 Source: Developed by Drs. Rommel Olivares, Kaylee Fabian, Al Ny and colleagues, with an educational ken from [employer]. Physical exam (Primary Care) Vital Signs: Last Vital Signs Pulse 92 04/09/24 15:30 Resp 14 04/09/24 15:30 BP 128/76 04/09/24 15:30 Pulse Ox 92 04/09/24 15:30 Oxygen Delivery Method Room Air 04/09/24 15:30 BMI result Body Mass Index 35.3 Tobacco/Smoking Status: Tobacco use Status Tobacco use date assessed 01/29/24 04/09/24 14:50 Patient Tobacco Use Status Former Tobacco user 04/09/24 14:50 Tobacco use type Cigarette 04/09/24 14:50 e-Cigarette/Vaping Use Never Used 04/09/24 14:50 Thrive Assessment: Date of Thrive Assessment Date Thrive assessed 01/29/24 04/09/24 14:50 Const Orientation/consciousness: patient oriented x3 HENMT Ears: hearing grossly normal bilaterally Neck Thyroid: Thyroid normal Lymphatic: no lymphadenopathy noted Resp Auscultation: clear to auscultation bilaterally Cardio Other: Irregularly irregular GI Inspection: Yes normal to inspection Palpation (GI): Soft to palpation and Other GI palpation findings present (nontender, no cva tenderness) Auscultation: normoactive bowel sounds Rectal Exam - Female: deferred Back/Spine/Pelvis Cervical Spine: cervical ROM normal, cervical muscular tenderness and Cervical spine tenderness Thoracic/Lumbar Spine: thoracic and lumbar spine normal to inspection, thoraco- lumbar ROM normal and paraspinal muscle tenderness Skin General skin exam: no rashes or lesions noted Neuro General: patient oriented x3, gait normal, no focal motor deficits and deep tendon reflexes 2+ bilaterally Gait exam (Neuro): Normal gait present Motor exam (neuro): 5/5 motor strength present throughout Sensory Exam: double simultaneous stimulation for sensation normal Results Reviewed Results Reviewed: Laboratory Tests 01/29/24 02/14/24 10:12 09:04 Creatinine 0.96 Estimated GFR 55 AST 20 ALT 14 Alkaline Phosphatase 93 Triglycerides 132 Cholesterol 145 LDL Cholesterol, Calc 70 HDL Cholesterol 49 MM/XR DEXA appendicular skeleton IMPRESSION: 1. DIAGNOSIS: Osteoporosis based on the lowest T-score value of -2.6 in the forearm radius 33% applying World Health Organization criteria. Assessment and Plan Assessment & Plan (1) Failed back syndrome, lumbar: Code(s): M96.1 - Postlaminectomy syndrome, not elsewhere classified Plan: On a controlled substance contract. (2) Postlaminectomy syndrome, cervical: Code(s): M96.1 - Postlaminectomy syndrome, not elsewhere classified Plan: X-ray ordered today. Advised to finish the prednisone taper. We will start muscle relaxant to use as needed. Did discuss that this can be sedating. Advised her to avoid drinking and or driving while taking this medication. She is requesting a prescription for a walker as she has ongoing back and neck pain and sometimes using a walker is helpful. This was ordered for her today. Advised to follow up with her back specialist. We will follow up in 2-3 weeks. Sooner if needed. Patient understands and agrees with the plan. (3) HTN (hypertension): Code(s): I10 - Essential (primary) hypertension Qualifiers: Hypertension type: primary hypertension Qualified Code(s): I10 - Essential (primary) hypertension Plan: BP WNL. Continue current regimen (4) Osteoporosis: Code(s): M81.0 - Age-related osteoporosis without current pathological fracture Plan: Following with endocrinology Orders: Orders XR cervical spine 3V 04/09/24 M96.1 - Postlaminectomy syndrome, not elsewhere classified Medications: New cyclobenzaprine 10 mg PO TID 10 days PRN 30 tabs 0RF muscle spasm walker use daily As directed 1 ea 0RF M54.16 - Radiculopathy, lumbar region, M96.1 - Postlaminectomy syndrome, not elsewhere classified Coding Level of Care Code Est Pt Level 4 (98167) Complex EM visit Add On G2211 Diagnoses Failed back syndrome, lumbar M96.1 Postlaminectomy syndrome, cervical M96.1 Primary hypertension I10 Hypertension type: primary hypertension Osteoporosis M81.0
[2024-04-09 15:30] VITALS: BP 128/76; PULSE 92; RESP 14; O2SAT 92; BMI 35.3
--- OUTSIDE RECORDS SUMMARY | 2024-04-09 15:30 | XMS_ITS | Continuity of Care Document ---
Author Organization [facility] Address [address] [facility] [place] [address] [place] [address]- Care Team Providers Care Mgmt Consultant Name Role Phone Kane JUNG, Ling Parada Primary Care Physician Encounter 12/16/23 - 12/23/23 [facility] [address], [facility] [address] [place] [address]- Attending Physician: Rehan Lopez MD Admitting Physician: Rehan Lopez MD Referring Physician: Rehan Lopez MD Allergies, Adverse Reactions, Alerts No Known Allergies [...] in AM, 0 Refills, Maintenance, 04/05/16 15:53:47, [place] Start Date: 04/05/16 Status: Ordered ipratropium nasal 42 mcg/inh spray 2 sprays, Nares, Both, 2 times a day, # 15 mL, 0 Refills, Maintenance, 04/05/16 15:54:06, [place] Start Date: 04/05/16 Status: Ordered Lipitor 10 [...] 0, 0, 05/08/07 1:34:37, Print LEXI Number, [id number], Constant Indicator Start Date: 05/08/07 Status: Ordered [...] mg, By Mouth, Daily, # 30 tablet, 1 Refills, Maintenance, 12/09/23 12:19:00 EDT, Tablet, [id number], Partial fill upon patient request if the prescription is for a schedule II opioid drug., 149.86, cm, 11/27/22 10:53:00... Start Date: 12/09/23 Status: Ordered Vitamin D3 = 2,000 International_Units, By Mouth, Daily, 0 Refills, Maintenance, 04/05/16 15:59:14 Start Date: 04/05/16 Status: Ordered Walker See Instructions, # 1 each, Maintenance, Use daily to aid with back pain, 04/05/16 18:14:08, [place] Start Date: 04/05/16 Status: Ordered Zoloft 50 mg oral tablet 50, mg, 1, tablet, By Mouth, Daily, 0, 0, 05/08/07 1:37:20, Print LEXI Number, [id number], Constant Indicator Start Date: 05/08/07 Status: Ordered [...] Confirmed 12/05/20 Active Urinary incontinence Confirmed Active Results Radiology Reports * Exam Date Time Procedure Performing Provider Status 12/16/23 2:34 PM Lumbar Spine Min 4 Views Laura Silva (Verified) Notes: (Lumbar Spine Min 4 Views) Reason For Exam: fusion of spine RESULT: Lumbar Spine Min 4 Views Lumbar Spine Min 4 Views Reason: fusion of spine COMPARISON: AP abdomen 05/31/2021. Preoperative lumbar spine on 04/05/2016 FINDINGS: No bone lesions or fractures. Moderate scoliotic curve convex right again noted. There has been prior posterior lumbar fusion from L2 through S1 on the left and L3-S1 on the right with interstitial screw on this side crossing the sacroiliac joint. The hardware appears intact and similar position based on comparing AP images, without evidence for fracture or loosening. Multilevel disc space narrowing and generalized osteophyte formation. Advanced degenerative change are present at T12-L1 and L1-L2 with subchondral bone sclerosis and vacuum disc at the latter level. Atherosclerotic changes are present in the aorta and proximal iliac vessels. IMPRESSION: Stable appearance of the posterior spinal fusion hardware when compared with limited images from 05/31/2021. Scoliosis and advanced multilevel degenerative disc disease. WSN: [id number] Ordering Physician: Rehan Lopez Dictated By: Marty Dale MD Dictated Date/Time: 12/17/23 8:02 am Reviewed By: Marty Dale MD Signed By: Marty Dale MD Signed Date/Time: 12/17/23 8:02 am Transcribed By: JEFFERY Transcribed Date/Time: 12/17/23 7:56 am Social History Social History Type Response Smoking Status Former smoker, quit more than 30 days ago entered on: 08/30/22 Sex Patient Care team information Care Team Personnel Name: Kane CALL MANAGER, Ling Parada Position: [facility] Outreach Member Role: PCP Address: Address: [address] [place] [address]- Name: Momo Galvin RN Position: [facility] RN Member Role: Primary Care Nurse Care Team Related Persons Name: JD ABRAHAM Address: [address] [address]
--- OUTSIDE RECORDS SUMMARY | 2024-04-09 15:30 | XMS_ITS | Continuity of Care Document ---
Author Organization [facility] Address [address] [place] [address], [address] [place] [address]- Care Team Providers Care Superintendent General Name Role Phone Kane JUNG, Ling Parada Primary Care Physician Encounter [facility] Date(s): 12/30/23 - 01/29/24 [facility] [employer] [facility] [address] [facility], [address] [place] [address]- Attending Physician: Annie Hester Admitting Physician: Annie [...] in AM, 0 Refills, Maintenance, 04/05/16 15:53:47, [place] Start Date: 04/05/16 Status: Ordered ipratropium nasal 42 mcg/inh spray 2 sprays, Nares, Both, 2 times a day, # 15 mL, 0 Refills, Maintenance, 04/05/16 15:54:06, [place] Start Date: 04/05/16 Status: Ordered Lipitor 10 [...] Mouth, Daily, 0, 0, 05/08/07 1:34:37, Print LXEI Number, [id number], Constant Indicator Start Date: 05/08/07 Status: Ordered [...] Daily, # 30 tablet, 11 Refills, Maintenance, 12/30/23 14:56:00 EDT, Tablet, [id number], Partial fill upon patient request if the prescription is for a schedule II opioid drug., 149.86, cm, 11/27/22 10:53:00... Start Date: 12/30/23 Status: Ordered Vitamin D3 = 2,000 International_Units, By Mouth, Daily, 0 Refills, Maintenance, 04/05/16 15:59:14 Start Date: 04/05/16 Status: Ordered Walker See Instructions, # 1 each, Maintenance, Use daily to aid with back pain, 04/05/16 18:14:08, [place] Start Date: 04/05/16 Status: Ordered Zoloft 50 mg oral tablet 50, mg, 1, tablet, By Mouth, Daily, 0, 0, 05/08/07 1:37:20, Print LEXI Number, [id number], Constant Indicator Start Date: 05/08/07 Status: Ordered [...] Personnel Name: Kane JUNG, Ling Parada Position: [facility] Outreach Member Role: PCP Address: Address: [address] [place] [address]- Name: Momo Galvin RN Position: [facility] RN Member Role: Primary Care Nurse Care Team Related Persons Name: JD ABRAHAM Address: home [address] [place] [address]
--- OUTSIDE RECORDS SUMMARY | 2024-04-09 15:30 | XMS_ITS ---
Author Organization [facility] Address [address] [place], [place] [id number] Care Team Providers Care Bread Wrapping Machine Feeder Name Role Phone SHANDRA MCDONALD Primary Care Provider [phone] REASON FOR VISIT Refills MEDICATIONS Medication SIG (Take, Route, Frequency, Duration) Notes Start Date End Date Status Xarelto 20 MG 1 tablet with food O rally Once a day for 90 days Active Metoprolol Succinate 50 MG 1 capsule Orally Once a day for 90 days Active oxyCODONE HCl 5 MG 1 tablet as needed O rally three times a day for 30 days 01/22/2024 02/21/2024 Active Encounters Encounter Location Date Provider Diagnosis [address] [id number] 01/22/2024 SHANDRA MCDONALD Sacroiliitis, not elsewhere classified M46.1 ASSESSMENTS Encounter Date Diagnosis Assessment Notes Treatment Notes Treatment Clinical Notes 01/22/2024 Sacroiliitis, not elsewhere classified (ICD-10 - M46.1) PLAN OF TREATMENT Medication Medication Name Sig Start Date Stop Date Notes Xarelto 20 MG 1 tablet with food O rally Once a day for 90 days Metoprolol Succinate 50 MG 1 capsule Ora lly Once a day for 90 days oxyCODONE HCl 5 MG 1 tablet as needed O rally three times a day for 30 days 01/22/2024 02/21/2024 Progress Notes * JACKIE COLLINSOB:[birth year] (88 yo F)Acc No.[id number]:01/22/2024 Patient:??KAY COLLINS :1935?Age:88 Y?Sex:Fe male Phone: Address:[address], [address] , [place] [address] * Refills?? Refill oxyCODONE HCl Tablet, 5 MG, Orally, 90, 1 tablet as needed, three times a day, 30 days, Refills=0 Refill Xarelto Tablet, 20 MG, Orally, 90, 1 tablet with food, Once a day, 90 days, Refills=1 Refill Metoprolol Succinate Capsule ER 24 Hour Sprinkle, 50 MG, Orally, 90, 1 capsule, Once a day, 90 days, Refills=1 * true * Date:??
--- OUTSIDE RECORDS SUMMARY | 2024-04-09 15:30 | XMS_ITS ---
Author Organization [facility] Address [address] [place] [id number] Care Team Providers Care Bit Tripoler Name Role Phone SHANDRA MIDDLETON Primary Care Provider REASON FOR VISIT f/u meds, pain Encounters Encounter Location Date Provider Diagnosis [address] [id number] 01/01/2024 SHANDRA MIDDLETON PLAN OF TREATMENT No Information Progress Notes * JACKIE COLLINSOB:[birth year] (88 yo F)Acc No.[id number]:01/01/2024 Progress Notes Patient:??KAY COLLINS Provider:??Shandra Middleton DNP :1935?Age:88 Y?Sex:Fe male Date:01/01/2024 Phone: Address:[address] [place] [address], [address] , [place], [id number] Subjective: * Chief Complaints: * ?1. F/u meds, pain. * Medical History:?? Objective: Assessment: Plan: * Treatment: * Billing Information: * Visit Code:?? * Procedure Codes:?? * Sign off status: Pending * Provider:??Shandra Middleton DNP Date:??0 01/01/2024
--- OUTSIDE RECORDS SUMMARY | 2024-04-09 15:30 | XMS_ITS | Continuity of Care Document ---
Author Organization [facility] Address [address] [facility], [place] [address] [place] [address]- Care Team Providers Care Oven Operator Automatic Name Role Phone Kane JUNG, Ling Parada Primary Care Physician Encounter 12/11/23 - 12/18/23 [facility] [address], [facility] [address] [place], [place] [address] Attending Physician: Alex JUNG, Shelby Earl Admitting Physician: Alex JUNG, Shelby Earl Referring Physician: Alex JUNG, Shelby Earl Allergies, Adverse Reactions, Alerts No Known Allergies [...] in AM, 0 Refills, Maintenance, 04/05/16 15:53:47, [place] Start Date: 04/05/16 Status: Ordered ipratropium nasal 42 mcg/inh spray 2 sprays, Nares, Both, 2 times a day, # 15 mL, 0 Refills, Maintenance, 04/05/16 15:54:06, [place] Start Date: 04/05/16 Status: Ordered Lipitor 10 [...] 0, 0, 05/08/07 1:34:37, Print LEXI Number, [id number], Constant Indicator Start Date: 05/08/07 Status: Ordered [...] 1 Refills, Maintenance, 12/09/23 12:19:00 EDT, Tablet, [facility][id number], Partial fill upon patient request if the [...] 0, 0, 05/08/07 1:37:20, Print LEXI Number, [id number], Constant Indicator Start Date: 05/08/07 Status: Ordered [...] Exam Date Time Procedure Performing Provider Status 12/11/23 1:44 PM Chest 2 Views Frontal and Lat Ling Johnson; Serjio (Verified) Notes: (Chest 2 Views Frontal and Lat) Reason For Exam: wheezing,cough,SOB RESULT: Chest 2 Views Frontal and Lat Chest 2 Views Frontal and Lat Reason: wheezing,cough,SOB COMPARISON: 05/31/2021 FINDINGS: LINES AND TUBES: None. LUNGS AND PLEURA: Clear lungs. Normal pulmonary vascularity. No pleural effusion. No pneumothorax. HEART, MEDIASTINUM AND LIZ: Heart is normal in size. Normal mediastinal and hilar contour. BONES AND SOFT TISSUES: There is fixation hardware present in the lumbar spine. IMPRESSION: No acute abnormality. WSN: [id number] Ordering Physician: Shelby Johnson Dictated By: Sal Burrell MD Dictated Date/Time: 12/11/23 2:28 pm Reviewed By: Sal Burrell MD Signed By: Sal Burrell MD Signed Date/Time: 12/11/23 2:28 pm Transcribed By: JEFFERY Transcribed Date/Time: 12/11/23 2:26 pm Social History Social History Type Response Smoking Status Former smoker, quit more than 30 days ago entered on: 08/30/22 Sex Patient Care team information Care Team Personnel Name: Kane AERIAL LINEMAN, Ling Parada Position: [facility] Outreach Member Role: PCP Address: Address: [address] [place] [id number]- Name: Momo Galvin RN Position: [facility] RN Member Role: Primary Care Nurse Care Team Related Persons Name: JD ABRAHAM Address: [address] [address]
--- OUTSIDE RECORDS SUMMARY | 2024-04-09 15:30 | XMS_ITS | Continuity of Care Document ---
Author Organization [facility] Address [address] [facility], [address] [place] [address]- Care Team Providers Care Machine Stoppage Frequency Checker Name Role Phone Kane JUNG, Ling Parada Primary Care Physician Encounter [facility] Date(s): 12/09/23 - [facility]08/[facility] [address], [address] [place], [place] [address] Allergies, Adverse Reactions, Alerts No Known Allergies [...] in AM, 0 Refills, Maintenance, 04/05/16 15:53:47, [place] Start Date: 04/05/16 Status: Ordered ipratropium nasal 42 mcg/inh spray 2 sprays, Nares, Both, 2 times a day, # 15 mL, 0 Refills, Maintenance, 04/05/16 15:54:06, [place] Start Date: 04/05/16 Status: Ordered Lipitor 10 [...] 0, 0, 05/08/07 1:34:37, Print LEXI Number, [id number], Constant Indicator Start Date: 05/08/07 Status: Ordered [...] 11 Refills, Maintenance, 12/30/23 14:56:00 EDT, Tablet, [id number], Partial fill upon patient request if the [...] 0, 0, 05/08/07 1:37:20, Print LEXI Number, [id number], Constant Indicator Start Date: 05/08/07 Status: Ordered [...] Personnel Name: Kane JUNG, Ling Parada Position: [facility] Outreach Member Role: PCP Address: Address: [address] [place] [phone]- Name: Momo Galvin RN Position: [facility] RN Member Role: Primary Care Nurse Care Team Related Persons Name: JD ABRAHAM Address: home [address] [place] [id number]
--- OUTSIDE RECORDS SUMMARY | 2024-04-09 15:30 | XMS_ITS ---
Author Organization [facility] Address [address] [place] [phone] Care Team Providers Care Hospital Wellness Coordinator Name Role Phone SHANDRA MIDDLETON Primary Care Provider ALLERGIES Allergen (clinical drug ingredient) Drug/Non Drug Allergy documented on EMR Reaction Allergy Type Onset Date Status Dust Mites Unknown Allergy Active REASON FOR VISIT f/u meds MEDICATIONS Medication SIG (Take, Route, Frequency, Duration) Notes Start Date End Date Status Atorvastatin Calcium 10 MG TAKE 1 TABLET BY MOUTH EVERY DAY IN THE EVENING for 90 Active Benzonatate 100 MG 1 capsule as needed Orally Three times a day Not-Taking Albuterol Sulfate HFA 108 (90 Base) MCG/ACT 1 puff as needed Inhalation every 4 hrs for 30 days 12/11/2023 Active Azithromycin 250 MG as directed Orally 6 pills Not-Taking Mirtazapine 7.5 MG 2 tablets at bedtime Orally Once a day for 90 days 02/26/2023 Not-Taking Zoloft 50 MG 1 tablet Oral Once a day for 90 days Zoloft 50 mg tablet taking 10mg 07/11/2022 Active Breo Ellipta 200-25 MCG/ACT INHALE 1 PUFF BY MOUTH EVERY DAY Inhalation Once a day for 90 days Active Nystatin 270320 UNIT/GM apply a light dusting to the affected area twice daily for 14 days External Twice a day for 30 days nystatin 100,000 unit/gram topical powder 07/11/2022 Active Triamcinolone Acetonide 0.1 % 1 application Externally Twice a day for 14 days 12/03/2023 Active Meloxicam 15 MG TAKE 1 TABLET BY MOUTH EVERY DAY NEEDED for 90 Active Losartan Potassium 100 MG TAKE 1 TABLET BY MOUTH EVERY DAY IN THE EVENING Not-Taking amLODIPine Besylate 10 MG TAKE 1 TABLET BY MOUTH EVERY DAY IN THE AFTERNOON Orally Once a day Active traZODone HCl 100 MG TAKE 1 TABLET BY MOUTH AT BEDTIME NEEDED FOR SLEEP Orally Once a day for 90 days Active Gemtesa 75 MG 1 tablet Orally Once a day Active Fluticasone Propionate 50 MCG/ACT 1 spray in each nostril Nasally Once a day Active Xarelto 20 MG 1 tablet with food Orally Once a day Active Metoprolol Succinate 50 MG 1 capsule Orally Once a day Active Pantoprazole Sodium 40 MG 1 daily Oral pantoprazole 40 mg tablet,delayed release 04/11/2022 Active Vitamin D3 Super Strength 50 MCG (2000 UT) 1 daily Oral Vitamin D3 50 mcg (2,000 unit) capsule 04/11/2022 Active Estradiol 0.1 MG/GM Vaginal 08/10/2022 Active PROBLEMS Problem Type ICD Code Onset Dates Problem Status W/U Status Risk SNOMED Code Notes Problem Atrial fibrillation, unspecified type (I48.91) Active confirmed Atrial fibrillation (02155221) VITAL SIGNS Blood pressure systolic 122 mm Hg 01/22/20 24 Blood pressure diastolic 68 mm Hg 024 Heart Rate 55 /min 01/22/2024 Height 59 in 01/22/2024 Weight 174.6 lbs 01/22/2024 BMI 35.26 kg/m2 01/22/2024 Oximetry 95 % 01/22/2024 Height-cm 149.86 cm 01/22/2024 Weight-kg 79.2 kg 01/22/2024 Encounters Encounter Location Date Provider Diagnosis [address] [phone] 01/22/2024 SHANDRA MIDDLETON Moderate persistent asthma, uncomplicated J45.40 ; Overactive bladder N32.81 and Atrial fibrillation, unspecified type I48.91 ASSESSMENTS Encounter Date Diagnosis Assessment Notes Treatment Notes Treatment Clinical Notes 01/22/2024 Moderate persistent asthma, uncomplicated (ICD-10 - J45.40) We discussed risk of metoprolol causing breathing exacerbation. Patient will monitor and continue with current plan until she sees cardiology. Reviewed reasons to seek emergency care. 01/22/2024 Overactive bladder (ICD-10 - N32.81) Patient continuing to urinate more frequently likely due to diuresis during hospital stay. She denies pain or cloudy urine. She denies fatigue. We will continue to monitor. 01/22/2024 Atrial fibrillation, unspecified type (ICD-10 - I48.91) Suspect this new occurrence of A fib was related to pyelonephritis. Patient has been started on metoprolol and Xarelto by hospital team. She was referred to [facility] [facility], we encouraged her to make this appointment. Continue with current care plan until this time. She continues to diurese fluid, we will continue to monitor breathing. Provided extensive education to patient and her daughter regarding signs and symptoms that require emergency care 01/22/2024 Other This visit was performed by [employer] student Sumi Jacome RN under the supervision of Shandra Middleton DNP, ART, ELECTRONIC SCANNER OPERATOR-C, MAURY. PLAN OF TREATMENT Treatment Notes Assessment Notes Moderate persistent asthma, uncomplicate d We discussed risk of metoprolol causing breathing exacerbation. Patient will monitor and continue with current plan until she sees cardiology. Reviewed reasons to seek emergency care. Overactive bladder Patient continuing t o urinate more frequently likely due to diuresis during hospital stay. She denies pain or cloudy urine. She denies fatigue. We will continue to monitor. Atrial fibrillation, unspecified type [place] spect this new occurrence of A fib was related to pyelonephritis. Patient has been started on metoprolol and Xarelto by hospital team. She was referred to [place] [facility], we encouraged her to make this appointment. Continue with current care plan until this time. She continues to diurese fluid, we will continue to monitor breathing. Provided extensive education to patient and her daughter regarding signs and symptoms that require emergency care Other This visit was perfo rmed by [employer] student Sumi Jacome RN under the supervision of Shandra Middleton DNP, ART, ELECTRONIC SCANNER OPERATOR-C, MAURY. Progress Notes * JACKIE COLLINSOB:[birth year] (88 yo F)Acc No.[id number]:01/22/2024 Progress Notes Patient:??KAY COLLINS Provider:??Shandra Middleton DNP :1935?Age:88 Y?Sex:Fe male Date:01/22/2024 Phone: Address:[address] [place] [address], [place] [address] , [id number] Subjective: * Chief Complaints: * ?1. F/u meds. * HPI: ?Patient Care Team:? Providers/Specialists:. ?Visit info:? Kay presents in the office today for a medication check in. Patient had an ER visit. Was not feeling well at home and felt so bad she went to the ER. Patient was on a monitor for 1 week. BP medication was changed to Metoprolol. Patient was suffering dehydration and a possible infection which put her in Afib. Patient states she is urinating quite often. Concerned that Gemtesa is not working the way it used to. * ROS:?General / Constitutional:?Patient denies??change in appetite, fever, weakness, excessive weight loss or gain. She reports a hospitalization beginning with an ER visit on 01/06. Before presenting at the ED, she was feeling extremely lmb4bicyh and SOB for 2.5 days. At ED was diagnosed with pyelonephritis and then had a episode of atrial fibrillation which is a new condition for her.?Endocrine:?Patient denies??cold intolerance, dizziness, excessive sweating, excessive thirst.?Respiratory:?Patient denies??chronic cough, sputum production, hemoptysis.??Patient complains of??slight SOB with exertion.?Cardiovascular:?Patient denies??chest pain, chest pain with exertion, irregular heartbeat, dizziness. Patient reports that in hospital she was fluid overloaded and had crackles in her lungs, had to be diuresed with Lasix.?Gastrointestinal:?Patient denies??abdominal pain, nausea, vomiting,?diarrhea, rectal bleeding.?Gynecology:?Patient denies??abnormal bleeding, hot flashes, pelvic pain.?Genitourinary:?Patient denies??abdominal pain / swelling, blood in the urine, difficulty urinating, painful urination.??Patient complains of??more frequent urination since hospital discharge.?Peripheral Vascular:?Patient denies??cold extremities, decreased sensation in extremities.?Psychiatric:?Patient denies??delusions, depressed mood, anxiety,?difficulty sleeping.? * Medical History:??Wears glas ses/contacts, Hearing aids, GERD/Heartburn, Anxiety, Incontinence, Arthritis, Depression, Bruise easily, PND - Sinus Infections. 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 * OB History:? History:?Total pregnancies:??2 ?Full-term pregnancies:??1 ?AB Spontaneous:??1 * Surgical History:??Knee surg lg - Lt , Lt. Shoulder surgery , Rt. Shoulder surgery x 2 , Neck surgery x 2 , Back surgery x 2 , Appendectomy , Bi-lateral Carpal Tunnel surgery . * Family History:??Father: dec eased 56 yrs, Heart failure.??Mother: 83 yrs, Heart failure.??Brother: 7 yrs.??Sister: alive, Mental Illness.??2 brother(s) , 1 sister(s) . .?? 1 brother - accidental , 1 brother - spinal meningitis. * Social History:?Drugs/Alcohol:?Do you drink alcohol?: Yes, Socially (). ?Lives in [place], [place] in elderly complex, alone. * Medications:??Taking Xarelto 20 MG Tablet 1 tablet with food Orally Once a day , Taking Metoprolol Succinate 50 MG Capsule ER 24 Hour Sprinkle 1 capsule Orally Once a day , Taking Pantoprazole Sodium 40 MG Tablet Delayed Release 1 daily Oral , Notes to Pharmacist: pantoprazole 40 mg tablet,delayed release, Taking Vitamin D3 Super Strength 50 MCG (2000 UT) Capsule 1 daily Oral , Notes to Pharmacist: Vitamin D3 50 mcg (2,000 unit) capsule, Taking Estradiol 0.1 MG/GM Cream Vaginal , Taking amLODIPine Besylate 10 MG Tablet TAKE 1 TABLET BY MOUTH EVERY DAY IN THE AFTERNOON Orally Once a day In the afternoon, Taking Gemtesa 75 MG Tablet 1 tablet Orally Once a day , Taking Fluticasone Propionate 50 MCG/ACT Suspension 1 spray in each nostril Nasally Once a day , Taking traZODone HCl 100 MG Tablet TAKE 1 TABLET BY MOUTH AT BEDTIME NEEDED FOR SLEEP Orally Once a day As needed, Taking Meloxicam 15 MG Tablet TAKE 1 TABLET BY MOUTH EVERY DAY NEEDED , Taking Nystatin 290501 UNIT/GM Powder apply a light dusting to the affected area twice daily for 14 days External Twice a day , Notes to Pharmacist: nystatin 100,000 unit/gram topical powder, Taking Zoloft 50 MG Tablet 1 tablet Oral Once a day , Notes to Pharmacist: Zoloft 50 mg tablet taking 10mg, Taking Breo Ellipta 200-25 MCG/ACT Aerosol Powder Breath Activated INHALE 1 PUFF BY MOUTH EVERY DAY Inhalation Once a day , Taking Triamcinolone Acetonide 0.1 % Ointment 1 application Externally Twice a day , Taking Albuterol Sulfate HFA 108 (90 Base) MCG/ACT Aerosol Solution 1 puff as needed Inhalation every 4 hrs , Taking Atorvastatin Calcium 10 MG Tablet TAKE 1 TABLET BY MOUTH EVERY DAY IN THE EVENING , Not-Taking Losartan Potassium 100 MG Tablet TAKE 1 TABLET BY MOUTH EVERY DAY IN THE EVENING , Not-Taking Benzonatate 100 MG Capsule 1 capsule as needed Orally Three times a day , Not-Taking Azithromycin 250 MG Tablet as directed Orally , Notes to Pharmacist: 6 pills, Not-Taking Mirtazapine 7.5 MG Tablet 2 tablets at bedtime Orally Once a day , Medication List reviewed and reconciled with the patient * Allergies:??Dust Mites: Seven violetta. Objective: * Vitals:??BP: 122/68 mm Hg, H R: 55 /min, Oxygen sat %: 95 %, Wt: 174.6 lbs, Wt- k.2 kg, Ht: 59 in, Ht-cm: 149.86 cm, BMI: 35.26 Index, Body Surface Area: 1.81. * Examination: ?General Examination: ?General appearance:??alert, pleasant, well-nourished and in no acute distress.?Head:??normocephalic, atraumatic.?Eyes:??extraocular movement intact (EOMI).?Neck / thyroid:??neck is supple, with full range of motion and no cervical lymphadenopathy.?Skin:??skin is warm and dry, with no rashes, good skin turgor and normal hair distribution.?Heart:??regular rate and rhythm without murmurs, gallops, clicks or rubs.?Lungs:??clear to auscultation bilaterally in upper carranza, very slight crackles in bases bilaterally, no rales, rhonchi or wheezes.?Abdomen:??soft with good bowel sounds, nontender, and no masses or hepatosplenomegaly.?Musculoskeletal:??FROM, +CMS to all extremities, no deformities.?Extremities:??normal extremity with no clubbing, cyanosis or edema.?Peripheral pulses:??2+ dorsalis pedis, 2+ radial.?Neurologic:??alert and oriented, cooperative with exam, gait normal, normal upper and lower extremity motor strength and function, normal exam with no motor or sensory deficits.?Psych:??alert and oriented x 3, cooperative with exam, with good judgement and insight, normal affect / mood, speech is clear and coherent, thought process is logical and goal directed without suidical ideation or delusions.? Assessment: * Assessment: 1.??Moderate persistent asth ma, uncomplicated - J45.40 (Primary)??2.??Overactive bladder - N32.81??3.??Atrial fibrillation, unspecified type - I48.91?? Plan: * Treatment: 2.??Overactive bladder?? Notes: Patient continuing to urinate more frequently likely due to diuresis during hospital stay. She denies pain or cloudy urine. She denies fatigue. We will continue to monitor.? 3.??Atrial fibrillation, uns pecified type?? Notes: Suspect this new occurrence of A fib was related to pyelonephritis. Patient has been started on metoprolol and Xarelto by hospital team. She was referred to [facility], we encouraged her to make this appointment. Continue with current care plan until this time. She continues to diurese fluid, we will continue to monitor breathing. Provided extensive education to patient and her daughter regarding signs and symptoms that require emergency care? 4.??Others?? Notes: This visit was performed by ELECTRONIC SCANNER OPERATOR student Sumi Jacome RN under the supervision of Shandra Middleton DNP, DIGITAL FORENSIC EXAMINER, ELECTRONIC SCANNER OPERATOR-C, VWCN. ? * Preventive Medicine:?Last CPE: 04/11/2022 DEXA: Colonoscopy: Yes, no longer gets them Endoscopy: No Covid Vac: Yes Flu Vac: Yes PV: Yes Shingles Vac: Yes. * Billing Information: * Visit Code:?? 46933 Office Visit, Est Pt., Level 3. * Procedure Codes:?? * Sign off status: Pending * Provider:??Shandra Middleton DNP Date:??0 01/22/2024 History and Physical Notes * Examination Category Sub-Category Detail Notes General Examination General appearance: alert, p leasant, well-nourished and in no acute distress Head: normocephalic, atrau matic Eyes: extraocular movement intact (EOMI) Neck / thyroid: neck is supple, with full range of motion and no cervical lymphadenopathy Heart: regular rate and rhy thm without murmurs, gallops, clicks or rubs Lungs: clear to auscultatio n bilaterally in upper carranza, very slight crackles in bases bilaterally, no rales, rhonchi or wheezes Abdomen: soft with good bowel sounds, nontender, and no masses or hepatosplenomegaly Neurologic: alert and oriented, cooperative with exam, gait normal, normal upper and lower extremity motor strength and function, normal exam with no motor or sensory deficits Skin: skin is warm and dry , with no rashes, good skin turgor and normal hair distribution Extremities: normal extremity wit h no clubbing, cyanosis or edema Peripheral pulses: 2+ dorsalis pedis, 2 + radial Musculoskeletal: FROM, +CMS to all ex tremities, no deformities Psych: alert and oriented x 3, cooperative with exam, with good judgement and insight, normal affect / mood, speech is clear and coherent, thought process is logical and goal directed without suidical ideation or delusions
--- OUTSIDE RECORDS SUMMARY | 2024-04-09 15:30 | XMS_ITS | Continuity of Care Document ---
Author Organization [facility] Address [address] [place] [address]- Care Team Providers Care Emergency Management Coordinator Name Role Phone Kane JUNG, Ling Parada Primary Care Physician Encounter [facility] Date(s[facility] 02/05/24 - [facility] [address], [address] [place], [place] [address] Allergies, Adverse Reactions, Alerts No Known [...] in AM, 0 Refills, Maintenance, 04/05/16 15:53:47, [place] Start Date: 04/05/16 Status: Ordered ipratropium nasal 42 mcg/inh spray 2 sprays, Nares, Both, 2 times a day, # 15 mL, 0 Refills, Maintenance, 04/05/16 15:54:06, [place] Start Date: 04/05/16 Status: Ordered Lipitor 10 [...] 0, 0, 05/08/07 1:34:37, Print LEXI Number, [id number], Constant Indicator Start Date: 05/08/07 Status: Ordered [...] Daily, # 30 tablet, 11 Refills, Maintenance, 02/05/24 16:19:00 EDT, [id number] Partial fill upon patient request if the prescription is for a schedule II opioid drug., 149.86, cm, 11/27/22 10:53:00... Start Date: 02/05/24 Status: Ordered Vitamin D3 = 2,000 International_Units, By Mouth, Daily, 0 Refills, Maintenance, 04/05/16 15:59:14 Start Date: 04/05/16 Status: Ordered Walker See Instructions, # 1 each, Maintenance, Use daily to aid with back pain, 04/05/16 18:14:08, [place] Start Date: 04/05/16 Status: Ordered Zoloft 50 mg oral tablet 50, mg, 1, tablet, By Mouth, Daily, 0, 0, 05/08/07 1:37:20, Print LEXI Number, [id number], Constant Indicator Start Date: 05/08/07 Status: Ordered [...] Personnel Name: Kane JUNG, Ling Parada Position: [facility] Outreach Member Role: PCP Address: Address: [address] [place] [id number]- Name: Momo Galvin RN Position: [facility] RN Member Role: Primary Care Nurse Care Team Related Persons Name: JD ABRAHAM Address: home [address] [place] [id number]
--- OUTSIDE RECORDS SUMMARY | 2024-04-09 15:31 | XMS_ITS | Patient Health Record ---
Author Organization [facility] Address [address], [place] [id number] Care Team Providers Care Cage/Vault Supervisor Name Role Phone HARRY LING Primary Care Provider Shelby Johnson Unavailable [phone] ALLERGIES Allergen (clinical drug ingredient) Drug/Non Drug Allergy documented on EMR Reaction Allergy Type Onset Date Status Dust Mites Unknown Allergy Active REASON FOR REFERRAL Reason please refer to [facility] Diagnosis 1 Sacroiliitis, not el sewhere classified (M46.1) Referral Organization [facility] Referring Provider First Name LING Referring Provider Last Name LEWIS Referring Provider Speciality Nurse Bogdan arzate Referred Organization [facility] Referred Address [address] [id number], Referred Provider Specialty Pain Medicin e General Notes ALPESH MATA 04/29 11:04:46 AM >Referral, OV Note, [facility] Spine note, [facility] CT Scan and insurance information all faxed to [facility] [phone]. Referral Priority Routine Reason please refer to [facility] for hearing eval thank you! Diagnosis 1 Hearing loss of righ t ear, unspecified hearing loss type (H91.91) Referral Organization [facility] Referring Provider First Name LING Referring Provider Last Name LEWIS Referring Provider Speciality Nurse Bogdan arzate Referred Organization [facility] Referred [facility] [address] [place] [phone] Referred Provider Specialty Audiologists General Notes ADAL VARELA 1 09/23/2022 09:11:08 AM >referral, note, demographics and insurance information faxed to [facility] centralized scheduling [phone] Referral Priority Routine Reason Please refer to Pain Management at [address] [place] [address] (Radiofrequency for neck) , Diagnosis 1 Bilateral low back p ain, unspecified chronicity, unspecified whether sciatica present (M54.50) Diagnosis 2 Osteoarthritis of hi p, unspecified (M16.9) Diagnosis 3 Osteoarthritis of marco th knees, 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) [facility] Referring Provider First Name LING Referring Provider Last Name HARRY Referring Provider Speciality Nurse Bogdan garciaioner [facility] Referred Address [address] [place] [id number], Referred Provider Specialty Pain Medicin e General Notes ADAL VARELA 0 09/03/2023 10:05:37 AM >demographics, referral and office note faxed to [facility] [phone], ADAL VARELA 09/05/2023 11:02:09 AM >demographics, updated referral and office note faxed to pain management at [address] [place] [address] Referral Priority Routine MEDICATIONS Medication SIG (Take, Route, Frequency, Duration) Notes Start Date End Date Status Xarelto 20 MG 1 tablet with food Orally Once a day for 90 days Active Metoprolol Succinate 50 MG 1 capsule Orally Once a day for 90 days Active Losartan Potassium 100 MG TAKE 1 TABLET BY MOUTH EVERY DAY IN THE EVENING Not-Taking Atorvastatin Calcium 10 MG TAKE 1 TABLET BY MOUTH EVERY DAY IN THE EVENING for 90 Active amLODIPine Besylate 10 MG TAKE 1 TABLET BY MOUTH EVERY DAY IN THE AFTERNOON Orally Once a day Active Benzonatate 100 MG 1 capsule as needed Orally Three times a day Not-Taking Vitamin D3 Super Strength 50 MCG (2000 UT) 1 daily Oral Vitamin D3 50 mcg (2,000 unit) capsule 04/11/2022 Active Triamcinolone Acetonide 0.1 % 1 application Externally Twice a day for 14 days 12/03/2023 Active Estradiol 0.1 MG/GM Vaginal 08/10/2022 Active traZODone HCl 100 MG TAKE 1 TABLET BY MOUTH AT BEDTIME NEEDED FOR SLEEP Orally Once a day for 90 days Active Gemtesa 75 MG 1 tablet Orally Once a day Active Azithromycin 250 MG as directed Orally 6 pills Not-Taking Albuterol Sulfate HFA 108 (90 Base) MCG/ACT 1 puff as needed Inhalation every 4 hrs for 90 days Active Fluticasone Propionate 50 MCG/ACT 1 spray in each nostril Nasally Once a day Active Mirtazapine 7.5 MG 2 tablets at bedtime Orally Once a day for 90 days 02/26/2023 Not-Taking Zoloft 50 MG 1 tablet Oral Once a day for 90 days Zoloft 50 mg tablet taking 10mg 07/11/2022 Active Pantoprazole Sodium 40 MG 1 daily Oral pantoprazole 40 mg tablet,delayed release 04/11/2022 Active Breo Ellipta 200-25 MCG/ACT INHALE 1 PUFF BY MOUTH EVERY DAY Inhalation Once a day for 90 days Active Nystatin 401741 UNIT/GM apply a light dusting to the affected area twice daily for 14 days External Twice a day for 30 days nystatin 100,000 unit/gram topical powder 07/11/2022 Active Meloxicam 15 MG TAKE 1 TABLET BY MOUTH EVERY DAY NEEDED for 90 Active SOCIAL HISTORY Sex Assigned At : Social History Observation Description Sex Assigned At Unknown PROBLEMS Problem Type ICD Code Onset Dates Problem Status W/U Status Risk SNOMED Code Notes Problem Essential (primary) hypertension (I10) Active confirmed Essential hypertension (55442595) Problem Moderate persistent asthma, uncomplicated (J45.40) Active confirmed Uncomplicated moderate persistent asthma (759829317) Problem Osteoarthritis of hip, unspecified (M16.9) Active confirmed Osteoarthritis of hip (686514881) Problem Sacroiliitis, not elsewhere classified (M46.1) Active confirmed Solitary sacroiliitis (534400694) Problem Overactive bladder (N32.81) Active confirmed Overactive bladder (223096558) Problem 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) Active confirmed Postmenopa usal atrophic vaginitis (09282383) Problem Atrial fibrillation, unspecified type (I48.91) Active confirmed Atrial fibrillation (80522253) VITAL SIGNS Heart Rate 55 /min 01/22/2024 Temperature 98.4 degrees Fahrenheit 12/11/2023 Oximetry 95 % 01/22/2024 Blood pressure diastolic 68 mm Hg 01/22/2024 Height-cm 149.86 cm 01/22/2024 Weight-kg 79.2 kg 01/22/2024 Height 59 in 01/22/2024 Blood pressure systolic 122 mm Hg 01/22/2024 Weight 174.6 lbs 01/22/2024 BMI 35.26 kg/m2 01/22/2024 Encounters Encounter Location Date Provider Diagnosis [address] [id number] 04/12/[address] [id number] 05/20/[address] [id number] 08/06/[address] [id number] 01/01/[address] [id number] 01/22/2024 LING MIDDLETON Moderate persistent asthma, uncomplicated J45.40 ; Overactive bladder N32.81 and Atrial fibrillation, unspecified type I48.[address] [id number] 04/24/2023 LING MIDDLETON Sacroiliitis, not elsewhere classified M46.1 and Bilateral low back pain, unspecified chronicity, unspecified whether sciatica present M54.[address] [id number] 06/12/2023 LING MIDDLETON Essential (primary) hypertension I10 ; Moderate persistent asthma, uncomplicated J45.40 ; Sacroiliitis, not elsewhere classified M46.1 ; Depression, unspecified F32.A and Actinic keratoses L57.[address] [id number] 08/27/2023 LING MIDDLETON Sacroiliitis, not elsewhere classified M46.1 ; Moderate persistent asthma, uncomplicated J45.40 ; Overactive bladder N32.81 ; Essential (primary) hypertension I10 ; Other localized visual field defect, unspecified eye H53.459 and Depression, unspecified F32.A [address] [id number] 10/29/2023 LING MIDDLETON Cervicalgia M54.2 ; Sacroiliitis, not elsewhere classified M46.1 ; Overactive bladder N32.81 and Moderate persistent asthma, uncomplicated J45.40 [address] [id number] 12/03/2023 Shelby Johnson Skin rash R21 [address] [id number] 12/11/2023 Shelby Alex Shortness of breath R06.02 ; Wheezing R06.2 ; Acute cough R05.1 and Pneumonia of right lung due to infectious organism, unspecified part of lung J18.[address] [id number] 12/24/2023 LINGREI MIDDLETON Sacroiliitis, not elsewhere classified M46.1 ; Depression, unspecified F32.A ; Moderate persistent asthma, uncomplicated J45.40 and Essential (primary) hypertension I10 [address] [id number] 04/26/2023 LING HARRY Sacroiliitis, not elsewhere classified M46.[address] [id number] 06/05/2023 LING HARRY Sacroiliitis, not elsewhere classified M46.[address] [id number] 06/25/2023 LINGREI MIDDLETON Hearing loss of righ t ear, unspecified hearing loss type H91.[address] [id number] 07/12/[address] [id number] 08/07/2023 LING HARRY Sacroiliitis, not elsewhere classified M46.[address] [id number] 09/02/2023 LINGREI MIDDLETON Bilateral low back pain, unspecified chronicity, unspecified whether sciatica present M54.50 ; Osteoarthritis of hip, unspecified M16.9 and Osteoarthritis of both knees, unspecified osteoarthritis type M17.[address] [id number] 09/17/[address] [id number] 10/11/[address] [id number] 10/21/2023 LING MIDDLETON Sacroiliitis, not elsewhere classified M46.[address], [place] [id number] 11/29/2023 LING MIDDLETON Sacroiliitis, not elsewhere classified M46.[address], [place] [id number] 12/12/2023 LING MIDDLETON [address], [place] [id number] 01/22/2024 LING MIDDLETON Sacroiliitis, not elsewhere classified M46.1 ASSESSMENTS Encounter Date Diagnosis Assessment Notes Treatment Notes Treatment Clinical Notes 04/24/2023 Sacroiliitis, not elsewhere classified (ICD-10 - [...] No changes made, medication(s) refilled as indicated 06/25/2023 Hearing loss of right ear, unspecified hearing loss type (ICD-10 - H91.91) Pt reports having difficulty with her hearing aids. Is due for hearing evaluation. Referral made to [facility] speech and hearing for evaluation 08/07/2023 Sacroiliitis, [...] not improving over the next 72 hours 12/11/2023 Shortness of breath (ICD-10 - R06.02) Link R06.2 wheezing; R05.1 acute cough; J18.9 pneumonia Chest x-ray to r/o PNA Use Breo and rescue inhaler Continue with antibiotics for now Obtain [employer] swab- nasally to r/o bacterial vs virus Prednisone to help with inflammation Encourage cool mist humidifier- increase fluid intake Encourage cough syrup- decongestant/expect orant 12/11/2023 Wheezing (ICD-10 - R06.2) 12/24/2023 Sacroiliitis, not elsewhere classified (ICD-10 - M46.1) Patient has exceptional back pain. She currently doing physical therapy exercises, group classes, and taking oxycodone to relieve her back pain with positive effect. We will make no medication changes today. Total time spent with patient 20 minutes which includes face to face visit, education and coordination of care. Gil Irizarry BSN, MANAGER INTERVENTIONAL student saw the patient and formulated the note under direct supervision of Dr. Ling Middleton DNP. 12/24/2023 Depression, unspecified (ICD-10 - F32.A) Patient is tolerating her antidepressant therapy well, she denies symptoms of depression or suicidal ideation. She was advised to call the office or emergent services if she were to develop worsening thoughts. 01/22/2024 Moderate persistent asthma, uncomplicated (ICD-10 - [...] fatigue. We will continue to monitor. 01/22/2024 Sacroiliitis, not elsewhere classified (ICD-10 - M46.1) 12/24/2023 Moderate persistent asthma, uncomplicated (ICD-10 - J45.40) Patient has difficulty walking long distances, takes breo as a daily inhaler and it has helped her respiratory status, will continue with that. 01/22/2024 Atrial fibrillation, unspecified type (ICD-10 - I48.91) Suspect this new occurrence of A fib was related to pyelonephritis. Patient has been started on metoprolol and Xarelto by hospital team. She was referred to [facility], we encouraged her to make this appointment. Continue with current care plan until this time. She continues to diurese fluid, we will continue to monitor breathing. Provided extensive education to patient and her daughter regarding signs and symptoms that require emergency care 12/11/2023 Acute cough (ICD-10 - R05.1) [employer] swab- nasal- respiratory panel 10/29/2023 Sacroiliitis, not elsewhere classified (ICD-10 - M46.1) Condition is stable and well controlled on current treatment. No changes made, medication(s) refilled as indicated 09/02/2023 Osteoarthritis of both knees, unspecified osteoarthritis type (ICD-10 - M17.0) 08/27/2023 Overactive bladder (ICD-10 - N32.81) Condition is stable and well controlled on current treatment. No changes made, medication(s) refilled as indicated 06/12/2023 Sacroiliitis, not elsewhere classified (ICD-10 - M46.1) Condition is stable and well controlled on current treatment. No changes made, medication(s) refilled as indicated 06/12/2023 Depression, unspecified (ICD-10 - F32.A) Condition is stable and well controlled on current treatment. No changes made, medication(s) refilled as indicated 08/27/2023 Essential (primary) hypertension (ICD-10 - I10) 10/29/2023 Overactive bladder (ICD-10 - N32.81) Condition is stable and well controlled on current treatment. No changes made, medication(s) refilled as indicated 12/11/2023 Pneumonia of right lung due to infectious organism, unspecified part of lung (ICD-10 - J18.9) 12/24/2023 Essential (primary) hypertension (ICD-10 - I10) Patient is being managed for elevated blood pressure. Her reading in office today was 118/62, an improvement from her previous readings with us. Patient is stable on her current regimen. 10/29/2023 Moderate persistent asthma, uncomplicated (ICD-10 - [...] up. 08/27/2023 Depression, unspecified (ICD-10 - F32.A) 01/22/2024 Other This visit was performed by IS PROJECT MANAGER student Sumi Jacome RN under the supervision of Ling Middleton, ZINA, PREFORM MACHINE OPERATOR, IS PROJECT MANAGER-C, VWCN. 06/12/2023 Other Total time spen t with patient 20 minutes which includes face to face visit, education and coordination of care. 10/29/2023 Other Total time spen t with patient 20 minutes which includes face to face visit, education and coordination of care. 12/03/2023 Other Total time spen t with patient 17 minutes which includes face to face visit, education and coordination of care. 12/11/2023 Other Total time spen t with patient 20 minutes which includes face to face visit, education and coordination of care. 12/24/2023 Other Total time spen t with patient 35 minutes which includes face to face visit, education and coordination of care. PLAN OF TREATMENT Pending Test Test Name Order Date X ray : Chest with 2 views 12/11/2023 Insurance Providers Payer Name Payer Address Payer Phone Subscriber Number Group Number Insured Name Patient Relationship to Insured Coverage Start Date Coverage End Date Medicare [address] [place] [address] [id number] ANDKAY AVILES Self - patient is the insured [facility] [address] [place]AK[place] [phone] [id number] DILAN COLLINSINE Self - patient is the insured MEDICAL [...]
--- OUTSIDE RECORDS SUMMARY | 2024-04-09 15:31 | XMS_ITS ---
Author Organization [facility] Address [address] [place] [id number] Care Team Providers Care Nut Blanker Operator Name Role Phone Ling Middleton DNP Primary Care Provider Joanne Reeves Jr, Elbert Unavailable REASON FOR VISIT pantoprazole refill MEDICATIONS Medication SIG (Take, Route, Frequency, Duration) Notes Start Date End Date Status Pantoprazole Sodium 40 MG TAKE 1 TABLET BY MOUTH EVERY DAY for 90 days Active Encounters Encounter Location Date Provider Diagnosis [facility] [address] [place] [address] 03/26/2023 Elbert Reeves Jr PLAN OF TREATMENT Medication Medication Name Sig Start Date Stop Date Notes Pantoprazole Sodium 40 MG TAKE 1 TABLET BY MOUTH EVERY DAY for 90 days
--- OUTSIDE RECORDS SUMMARY | 2024-04-09 15:31 | XMS_ITS | Patient Health Record ---
Author Organization [facility] Address [address] [place] [address] Care Team Providers Care Night Warehouse Manager Name Role Phone Ling Middleton DNP Primary Care Provider Elbert Jose Jr Unavailable ALLERGIES Allergen (clinical drug ingredient) Drug/Non Drug [...] a day for 30 day(s) Active Ipratropium [place] 0.06 % 2 sprays in e ach nostril Nasally Three times a day for 4 day(s) Active Amoxicillin 500 MG 1 capsule Orally NEEDED FOR DENTIST Active Calcium 500 MG 1 tablet Orally Once a day Active Tramadol & Dietary Manage Prod Active Vitamin D3 Ultra Potency 87401 UNIT 1 tablet Orally as directed Active [...] Notes Problem Rectal bleeding (K62.5) Active confirmed 55569699 Problem Gastro-esophagea l reflux disease without esophagitis (K21.9) Active confirmed 836458458 Problem Cough (R05) Active confirmed 43849483 Problem Urinary incontinence, unspecified type (R32) Active confirmed 184148478 PLAN OF TREATMENT Pending Test Test Name Order Date XR GI SERIES 07/14/2015 Insurance Providers Payer Name Payer Address Payer Phone Subscriber Number Group Number Insured Name Patient Relationship to Insured Coverage Start Date Coverage End Date MEDICARE OF [place] [address] [place] [address] [phone] [id number] ANDKAY AVILES Self - patient is the insured [employer] [address] [place] [phone] [id number] KAY COLLINS Self - patient is the insured MEDICAL (GENERAL) HISTORY Medical History History ICD Code EGD/colonoscopy 01/03/2006. No evidence of Morse's esophagus. Hyperplastic colon polyp. Seasonal allergic rhinitis hypertension hypercholesterolemia scoliosis arthritis depression Surgical History Surgery Date(Month/Year) Vocal cord polyp 2006 Multiple back and neck surgeries rotator cuff surgery both knee replacement left
== END 2024-04-09 16:21 | disposition home or self-care (01) ==
LOC: HO.HMGFM 15:26
PROVIDERS: PCP Physician Assistant; Visit Provider Physician Assistant
DX: M96.1 Postlaminectomy syndrome, not elsewhere classified (principal); I10 Essential (primary) hypertension; M81.0 Age-related osteoporosis without current pathological fracture
CPT/HCPCS: 99214; G2211

== ENCOUNTER 2024-04-09 16:45 | Outpatient (REF) | payer MEDICARE, OTHER, SELFPAY ==
--- NOTE | ~2024-04-09 | XR_ITS ---
EXAMINATION: XR CERVICAL SPINE CLINICAL INFORMATION: Post laminectomy syndrome. COMPARISON: Radiograph cervical spine 11/12/2022. TECHNIQUE: 4 views of the cervical spine were obtained. FINDINGS: Unchanged mild apical reversal of the cervical lordosis at the level of C4-C5. Stable trace anterolisthesis at C3-C4 and C6-C7. No evidence of acute compression deformity or traumatic subluxation. Redemonstration of complete loss of the intervertebral disc space at C5-C6 with ankylosis. Also severe intervertebral disc height loss at C4-C5 and C6-C7. Severe degenerative arthroses of the atlantodental joint. Advanced multilevel cervical spondylosis leading to various degrees of neural foraminal encroachment and central spinal canal stenosis, suboptimally assessed in this limited radiographic series. No prevertebral soft tissue thickening. Prominent atherosclerotic plaques in the region of the bilateral carotid bulbs. Partially seen interstitial coarsening in the upper lungs. XR/XR cervical spine 3V IMPRESSION: 1. No acute compression deformity or traumatic subluxation. 2. Advanced cervical spondylosis leading to various degrees of neural foraminal encroachment and central spinal canal stenosis, suboptimally assessed in this limited radiographic series. 3. Partially seen interstitial coarsening in the upper lungs, recommend correlation with chest radiograph. Electronically signed by: Isabel Collier MD 04/10/2024 08:13 AM EDT
== END 2024-04-09 16:46 | disposition home or self-care (01) ==
LOC: HO.XRAY 16:45
PROVIDERS: PCP Physician Assistant; Visit Provider Physician Assistant
DX: M96.1 Postlaminectomy syndrome, not elsewhere classified (principal)
CPT/HCPCS: 72040

== ENCOUNTER 2024-04-20 09:00 | Outpatient (REF) | payer MEDICARE, OTHER, SELFPAY | END 2024-04-20 09:01 | disposition home or self-care (01) | LOC: HO.HMGCLNP 09:00 | PROVIDERS: PCP Physician Assistant; Visit Provider Internal Medicine Endocrinology, Diabetes & Metabolism | DX: Z13.89 Encounter for screening for other disorder (principal) ==

== ENCOUNTER 2024-04-20 10:39 | Outpatient (REF) | payer MEDICARE, OTHER, SELFPAY ==
[2024-04-20 14:21] LABS: Vitamin D 25-OH Total 61.5 ng/mL (>30)
[2024-04-20 14:33] LABS: Total Volume 24 Hour Urine 975 mL
[2024-04-20 15:04] LABS: Creatinine, 24Hr Urine 0.8 G/Day (1.0-2.0); Creatinine, mg/dL 77.12
[2024-04-21 13:48] LABS: Prot Elec - Albumin 3.6 g/dL (3.8-4.8); Prot Elec - Alpha1 0.4 g/dL (0.2-0.3); Prot Elec - Beta 1 0.4 g/dL (0.4-0.6); Prot Elec - Beta 2 0.4 g/dL (0.2-0.5); Prot Elec - Gamma 0.7 g/dL (0.8-1.7); Prot Elec - Total Protein 6.4 g/dL (6.1-8.1)
[2024-04-21 17:39] LABS: Calcium, 24 Hr Urine 68 mg/24 h; Calcium/Creatinine Ratio 90 mg/g creat (30-275); Creatinine 24Hr Urine 0.76 g/24 h (0.50-2.15)
== END 2024-04-20 10:40 | disposition home or self-care (01) ==
LOC: HO.HMGCLDS 10:39
PROVIDERS: PCP Physician Assistant; Visit Provider Internal Medicine Endocrinology, Diabetes & Metabolism
DX: M81.0 Age-related osteoporosis without current pathological fracture (principal)
CPT/HCPCS: 82306; 82340; 82570; 84165; 86335

== ENCOUNTER 2024-04-22 15:07 | Outpatient (AMB) | payer MEDICARE, OTHER, SELFPAY ==
--- NOTE | 2024-04-22 15:11 | A.OFFPC_ITS ---
Vital Signs 04/22/24 15:13 Height 4 ft 10.86 in BP 124/68 Blood Pressure Location Rt brachial Position Sitting Respiration 16 Pulse 75 Pulse Source Pulse Oximeter Pulse Oximetry (%) 95 Oxygen Delivery Method Room Air Intake Visit Reasons: F/U on neck pain Intake Note: Follow up neck pain. Saw Dr Lopez at [facility] and they are going to do a shot in the SI joint and knee Allergies bee pollen Allergy (Unknown, Verified 04/22/24 15:12) Unknown house dust mite Allergy (Unknown, Verified 04/22/24 15:12) Unknown adhesive tape Adverse Reaction (Intermediate, Verified 04/22/24 15:12) Rash Medication List - Last Reconciled 04/22/24 by Allison Ham PA-C albuterol sulfate 90 mcg/actuation 2 puffs PO Q6H PRN amlodipine 10 mg PO DAILY atorvastatin 10 mg PO DAILY cholecalciferol (vitamin D3) 50 mcg PO DAILY fluticasone furoate-vilanterol 200-25 mcg/dose (Breo Ellipta) 1 ea inhalation DAILY fluticasone propionate 50 mcg/actuation 1 spray intranasal BID ipratropium bromide 2 sprays intranasal Q12H losartan 50 mg PO DAILY metoprolol succinate ER 50 mg See Protocol PO DAILY 90 days oxycodone 5 mg PO Q8H PRN 28 days pantoprazole 40 mg PO DAILY@0630 rivaroxaban (Xarelto) 20 mg PO QPM sertraline 50 mg PO BEDTIME tramadol 50 mg PO BID 30 days trazodone 100 mg PO BEDTIME vibegron (Gemtesa) 75 mg PO DAILY walker use daily As directed Tobacco use date assessed: 01/29/24 Dental Screening Dental Screen Date: 01/29/24 HPI F/U on neck pain HPI Details Patient is an 88-year-old female who presents today for a follow up. 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 She has a significant past medical history of hypertension, CKD, GERD, chronic pain disorder, s/p laminectomy syndrome, mood disorder, urge incontinence and AFib. She is accompanied today by her daughter on the phone. CV: bp today is 124/68. She is currently on amlodipine 10 mg, losartan 50 mg, metoprolol 50 mg. Compliant with Xarelto. Follows with cardiology. Bps at home wnl. Denies any chest pain, shortness a breath or palpitations. Uro: On CT of the abdomen and pelvis that did show a possible complex cyst on the right kidney. No known history of this. She was referred to urology. PULM: She does have a hx of COPD. Musculoskeletal: She saw Dr. Lopez yesterday. She states that he is going to do injections in the right knee. She is going for an SI joint injection 05/05. She states that he also going to address her neck at that follow up as well. She has been using Tylenol and oxycodone as prescribed. It does take the edge off. She Has a history of failed back syndrome. She states that her chronic pain syndrome is controlled with oxycodone 5 mg 3 times a day. Psych: She has been on Zoloft 50 mg and trazodone 100 mg for some time and feels well-controlled with this. GI: She states that she does not go for any routine screening tests. She does follow with a dress shoe inspector who has offered her a colonoscopy every year but she declines it. She follows for her pantoprazole. Endo: Following with endocrinology for her osteoporosis. She has a hx of osteoporosis and states that her mother had severe osteoporosis. She is lifting weights again. She is doing bone and balance . She was on vitamin D and calcium. Recent labs showed elevated calcium and she was advised to stop the calcium but continue vitamin-D [facility] Medical History (Updated 03/12/24 @ 08:09 by Allison Ham PA-C) Generalized anxiety disorder Insomnia Major depression, recurrent, chronic Arthritis High blood cholesterol COPD (chronic obstructive pulmonary disease) Urge incontinence Joint pain Chronic back pain HTN (hypertension) Bleeding hemorrhoid Back pain with history of spinal surgery Surgical History History of back surgery History of surgery Family History Father Thrombosis Mother Diabetes Heart rate problem Social History Household Members: None Housing: Apartment Do you presently have visiting nurse or other home services: Yes (OVERNIGHT CASHIER for housekeeping 2 times per week) Patient Tobacco Use Status: Former Tobacco user Tobacco use type: Cigarette Cigarettes Per Day: 15 Years Smoked: 10 e-Cigarette/Vaping Use: Never Used Second Hand Smoke Exposure: No Substance Use Type: Painkillers service: No Current occupational status: retired Cognitive needs: No Hearing needs: Yes (hearing aids) Vision needs: No Questionnaire PHQ-9 Over the last 2 weeks, how often have you been bothered by any of the following problems? 1. Little interest or pleasure in doing things: not at all 2. Feeling down, depressed, or hopeless: not at all 4. Feeling tired or having little energy: not at all 5. Poor appetite or overeating: not at all 6. Feeling bad about yourself - or that you are a failure or have let yourself or your family down: several days 7. Trouble concentrating on things, such as reading the newspaper or watching television: not at all Source: Developed by Drs. Rommel Olivares, Kaylee Fabian, Al Ny and colleagues, with an educational ken from [employer]. Thrive Questionnaire Date Thrive assessed: 01/29/24 RAYNE-7 AMB Questionnaire RAYNE-7 Date RAYNE - 7 assessed: 01/29/24 Source: Developed by Drs. Rommel Olivares, Kaylee Fabian, Al Ny and colleagues, with an educational ken from [employer]. Physical exam (Primary Care) Vital Signs: Last Vital Signs Pulse 75 04/22/24 15:13 Resp 16 04/22/24 15:13 BP 124/68 04/22/24 15:13 Pulse Ox 95 04/22/24 15:13 Oxygen Delivery Method Room Air 04/22/24 15:13 Tobacco/Smoking Status: Tobacco use Status Tobacco use date assessed 01/29/24 04/22/24 15:19 Patient Tobacco Use Status Former Tobacco user 04/22/24 15:19 Tobacco use type Cigarette 04/22/24 15:19 e-Cigarette/Vaping Use Never Used 04/22/24 15:19 Thrive Assessment: Date of Thrive Assessment Date Thrive assessed 01/29/24 04/22/24 15:19 Const Orientation/consciousness: patient oriented x3 HENMT Ears: hearing grossly normal bilaterally Neck Thyroid: Thyroid normal Lymphatic: no lymphadenopathy noted Resp Auscultation: clear to auscultation bilaterally Cardio Rate: regular rate Rhythm: regular rhythm Heart sounds: S1 normal heart sound present and S2 normal heart sound present GI Inspection: Yes normal to inspection Palpation (GI): Soft to palpation and Other GI palpation findings present (nontender, no cva tenderness) Auscultation: normoactive bowel sounds Rectal Exam - Female: deferred Skin General skin exam: no rashes or lesions noted Neuro General: patient oriented x3, gait normal and no focal motor deficits Assessment and Plan Assessment & Plan (1) Postlaminectomy syndrome, cervical: Code(s): M96.1 - Postlaminectomy syndrome, not elsewhere classified Plan: Will start tramadol in addition. Discussed risks/benefits and adverse effects. Discussed risks of constipation, dependence and sedation. will continue current pain management as well. (2) Failed back syndrome, lumbar: Code(s): M96.1 - Postlaminectomy syndrome, not elsewhere classified Plan: as above. (3) HTN (hypertension): Code(s): I10 - Essential (primary) hypertension Qualifiers: Hypertension type: primary hypertension Qualified Code(s): I10 - Essential (primary) hypertension Plan: wnl. continue current plan. (4) Osteoporosis: Code(s): M81.0 - Age-related osteoporosis without current pathological fracture Plan: Following with endo. Medications: New tramadol 50 mg PO BID 30 days 60 tabs 0RF Discontinued cyclobenzaprine Discontinued Reason: Doctor's Order 10 mg PO TID 10 days PRN 30 tabs 0RF muscle spasm Coding Level of Care Code Est Pt Level 4 (15073) Complex EM visit Add On G2211 Diagnoses Postlaminectomy syndrome, cervical M96.1 Failed back syndrome, lumbar M96.1 Primary hypertension I10 Hypertension type: primary hypertension Osteoporosis M81.0
[2024-04-22 15:13] VITALS: BP 124/68; PULSE 75; RESP 16; O2SAT 95
== END 2024-04-22 15:51 | disposition home or self-care (01) ==
PROVIDERS: PCP Physician Assistant; Visit Provider Physician Assistant
DX: M96.1 Postlaminectomy syndrome, not elsewhere classified (principal); I10 Essential (primary) hypertension; M81.0 Age-related osteoporosis without current pathological fracture

== ENCOUNTER → 2024-04-22 15:07 | Outpatient (BNVA) | payer MEDICARE, OTHER, SELFPAY | PROVIDERS: PCP Physician Assistant; Visit Provider Physician Assistant | DX: M96.1 Postlaminectomy syndrome, not elsewhere classified (principal); I10 Essential (primary) hypertension; M81.0 Age-related osteoporosis without current pathological fracture | CPT/HCPCS: 99212 ==

== ENCOUNTER 2024-04-24 13:29 | Outpatient (REF) | payer MEDICARE, OTHER, SELFPAY ==
--- NOTE | ~2024-04-24 | XR_ITS ---
EXAMINATION: XR KNEE, RIGHT CLINICAL INFORMATION: Right knee pain COMPARISON: Radiographs 02/28/2023 TECHNIQUE: Three views of the right knee. FINDINGS: Medial and lateral compartment narrowing. Prominent meniscal chondrocalcinosis. No fracture. Small joint effusion. Overall, no significant change. XR/XR knee RT 3V IMPRESSION: Moderate medial/lateral compartment osteoarthritis with chondrocalcinosis and a small joint effusion. No significant change. Electronically signed by: Rodney Paul MD 05/01/2024 08:45 AM EDT
== END 2024-04-24 13:30 | disposition home or self-care (01) ==
LOC: HO.XRAY 13:29
PROVIDERS: PCP Physician Assistant; Visit Provider Physical Medicine & Rehabilitation
DX: M17.11 Unilateral primary osteoarthritis, right knee (principal)
CPT/HCPCS: 73562

== ENCOUNTER 2024-05-20 10:51 | Outpatient (AMB) | payer MEDICARE, OTHER, SELFPAY ==
--- NOTE | 2024-05-20 11:23 | A.OFFPC_ITS ---
Vital Signs 05/20/24 11:25 05/20/24 11:28 Height 4 ft 10.86 in Weight 171 lb 6 oz BMI 34.8 BP 154/56 H 116/62 Blood Pressure Location Rt brachial Rt brachial Position Sitting Sitting Pulse 67 Pulse Source Pulse Oximeter Pulse Oximetry (%) 96 Oxygen Delivery Method Room Air Intake Visit Reasons: RxFollowUp Intake Note: Follow up. Would like to discuss changing sertaline so she can go back on Tramadol. Blend Technician Required: No Allergies bee pollen Allergy (Unknown, Verified 05/20/24 11:23) Unknown house dust mite Allergy (Unknown, Verified 05/20/24 11:23) Unknown adhesive tape Adverse Reaction (Intermediate, Verified 05/20/24 11:23) Rash Medication List - Last Reconciled 05/20/24 by Allison Ham PA-C albuterol sulfate 90 mcg/actuation 2 puffs PO Q6H PRN amlodipine 10 mg PO DAILY atorvastatin 10 mg PO DAILY cholecalciferol (vitamin D3) 50 mcg PO DAILY fluticasone furoate-vilanterol 200-25 mcg/dose (Breo Ellipta) 1 ea inhalation DAILY fluticasone propionate 50 mcg/actuation 1 spray intranasal BID ipratropium bromide 2 sprays intranasal Q12H losartan 50 mg PO DAILY metoprolol succinate ER 50 mg See Protocol PO DAILY 90 days oxycodone 5 mg PO Q8H PRN 28 days oxycodone myristate CR-ER (Xtampza ER) 9 mg PO Q12H 28 days pantoprazole 40 mg PO DAILY@0630 rivaroxaban (Xarelto) 20 mg PO QPM 90 days sertraline 50 mg PO BEDTIME trazodone 100 mg PO BEDTIME vibegron (Gemtesa) 75 mg PO DAILY walker use daily As directed Tobacco use date assessed: 01/29/24 Dental Screening Dental Screen Date: 01/29/24 HPI RxFollowUp HPI Details Patient is an 88-year-old female who presents today for a follow up. She has a significant past medical history of hypertension, CKD, GERD, chronic pain disorder, s/p laminectomy syndrome, mood disorder, urge incontinence and AFib. She is accompanied today by her daughter on the phone. CV: bp today is 124/68. She is currently on amlodipine 10 mg, losartan 50 mg, metoprolol 50 mg. Compliant with Xarelto. Follows with cardiology. Bps at home wnl. Denies any chest pain, shortness a breath or palpitations. Uro: On CT of the abdomen and pelvis that did show a possible complex cyst on the right kidney. No known history of this. She was referred to urology. PULM: She does have a hx of COPD. Musculoskeletal: She saw Dr. Lopez for her SI joint injection and it has helped. She states that he is going to do injections in the right knee. She is going to PT for her neck. She has been using Tylenol and oxycodone as prescribed. It does take the edge off. She never picked up the Xtampza ER because she states that the pharmacist told her it might be too strong for her. She does want to try it because taking oxycodone and Tylenol 3 times a day does not fully relieve her discomfort. She is not a surgical candidate. Psych: She has been on Zoloft 50 mg and trazodone 100 mg for some time and feels well-controlled with this. Daughter feels that the Zoloft could be a little stronger for the anxiety. GI: She states that she does not go for any routine screening tests. She does follow with a tools developer who has offered her a colonoscopy every year but she declines it. She follows for her pantoprazole. Endo: Following with endocrinology for her osteoporosis. She has a hx of osteoporosis and states that her mother had severe osteoporosis. She is lifting weights again. She is doing bone and balance . She was on vitamin D and calci um. Recent labs showed elevated calcium and she was advised to stop the calcium but continue vitamin-D [facility] Medical History (Updated 05/20/24 @ 11:51 by Allison Ham PA-C) Generalized anxiety disorder Insomnia Major depression, recurrent, chronic Arthritis High blood cholesterol COPD (chronic obstructive pulmonary disease) Urge incontinence Joint pain Chronic back pain HTN (hypertension) Bleeding hemorrhoid Back pain with history of spinal surgery Surgical History History of back surgery History of surgery Family History Father Thrombosis Mother Diabetes Heart rate problem Social History Household Members: None Housing: Apartment Do you presently have visiting nurse or other home services: Yes (CHIEF COMMERCIAL OFFICER for housekeeping 2 times per week) Patient Tobacco Use Status: Former Tobacco user Tobacco use type: Cigarette Cigarettes Per Day: 15 Years Smoked: 10 e-Cigarette/Vaping Use: Never Used Second Hand Smoke Exposure: No Substance Use Type: Painkillers service: No Current occupational status: retired Cognitive needs: No Hearing needs: Yes (hearing aids) Vision needs: No Questionnaire Thrive Questionnaire Date Thrive assessed: 01/29/24 RAYNE-7 AMB Questionnaire RAYNE-7 Date RAYNE - 7 assessed: 01/29/24 Source: Developed by Drs. Rommel Olivares, Kaylee Fabian, Al Ny and colleagues, with an educational ken from [employer] Physical exam (Primary Care) Vital Signs: Last Vital Signs Pulse 67 05/20/24 11:25 BP 116/62 05/20/24 11:28 Pulse Ox 96 05/20/24 11:25 Oxygen Delivery Method Room Air 05/20/24 11:25 BMI result Body Mass Index 34.8 Tobacco/Smoking Status: Tobacco use Status Tobacco use date assessed 01/29/24 05/20/24 11:34 Patient Tobacco Use Status Former Tobacco user 05/20/24 11:34 Tobacco use type Cigarette 05/20/24 11:34 e-Cigarette/Vaping Use Never Used 05/20/24 11:34 Thrive Assessment: Date of Thrive Assessment Date Thrive assessed 01/29/24 05/20/24 11:34 Const Orientation/consciousness: patient oriented x3 HENMT Ears: hearing grossly normal bilaterally Neck Thyroid: Thyroid normal Lymphatic: no lymphadenopathy noted Resp Auscultation: clear to auscultation bilaterally Cardio Rate: regular rate Rhythm: regular rhythm Heart sounds: S1 normal heart sound present and S2 normal heart sound present GI Inspection: Yes normal to inspection Palpation (GI): Soft to palpation and Other GI palpation findings present (nontender, no cva tenderness) Auscultation: normoactive bowel sounds Rectal Exam - Female: deferred Skin General skin exam: no rashes or lesions noted Neuro General: patient oriented x3, gait normal and no focal motor deficits Coding Level of Care Code Est Pt Level 4 (78236) Diagnoses Chronic pain syndrome G89.4 Primary hypertension I10 Hypertension type: primary hypertension Generalized anxiety disorder F41.1 Assessment & Plan Assessment & Plan (1) Chronic pain syndrome: Code(s): G89.4 - Chronic pain syndrome Category: Medical Plan: We will try Xtampza ER. We spent significant time discussing the risks, benefi ts and adverse effects of this medication. The idea will be to reduce the amount of oxycodone use during the day. We will do a short term follow up to be reassessed. (2) HTN (hypertension): Code(s): I10 - Essential (primary) hypertension Category: Medical Qualifiers: Hypertension type: primary hypertension Qualified Code(s): I10 - Essential (primary) hypertension Plan: WNL. Continue current regimen (3) Generalized anxiety disorder: Code(s): F41.1 - Generalized anxiety disorder Category: Medical Plan: We did discuss possibly switching Zoloft or adjusting the regimen at the follow up visit but patient does feel that the chronic pain is what gives her the anxiety and that it limits her in all that she can do. She has a very active individual and when she has a lot of pain she does not want to be as social Medications: New walker A rolling walker with seat use daily As directed 1 ea 0RF G89.4 - Chronic pain syndrome, R26.89 - Other abnormalities of gait and mobility Refilled oxycodone myristate CR-ER (Xtampza ER) must administer with a meal/food; Partial Fill upon patient request. 9 mg PO Q12H 28 days 56 caps 0RF
[2024-05-20 11:25] VITALS: BP 154/56; PULSE 67; O2SAT 96; BMI 34.8
[2024-05-20 11:28] VITALS: BP 116/62
== END 2024-05-20 12:09 | disposition home or self-care (01) ==
PROVIDERS: PCP Physician Assistant; Visit Provider Physician Assistant
DX: G89.4 Chronic pain syndrome (principal); I10 Essential (primary) hypertension; F41.1 Generalized anxiety disorder

== ENCOUNTER → 2024-05-20 10:51 | Outpatient (BNVA) | payer MEDICARE, OTHER, SELFPAY | PROVIDERS: PCP Physician Assistant; Visit Provider Physician Assistant | DX: G89.4 Chronic pain syndrome (principal); I10 Essential (primary) hypertension; F41.1 Generalized anxiety disorder; Z79.891 Long term (current) use of opiate analgesic | CPT/HCPCS: 99212 ==

== ENCOUNTER 2024-05-30 11:25 | Outpatient (AMB) | payer MEDICARE, OTHER, SELFPAY ==
--- NOTE | 2024-05-30 11:27 | MHC.OFFWIV ---
Intake Vital Signs 05/30/24 11:35 Height 4 ft 10 in Weight 171 lb BMI 35.7 BP 130/74 Blood Pressure Location Rt brachial Position Sitting Pulse 80 Pulse Source Pulse Oximeter Pulse Oximetry (%) 94 Intake Visit Reasons: EP-UTI Intake Note: pt is here for possible uti Patient Tobacco Use Status: Former Tobacco user Allergies bee pollen Allergy (Unknown, Verified 05/30/24 11:58) Unknown house dust mite Allergy (Unknown, Verified 05/30/24 11:58) Unknown adhesive tape Adverse Reaction (Intermediate, Verified 05/30/24 11:58) Rash Medication List - Last Reconciled 05/30/24 by Anabella Hauser, [facility]- albuterol sulfate 90 mcg/actuation 2 puffs PO Q6H PRN amlodipine 10 mg PO DAILY atorvastatin 10 mg PO DAILY cholecalciferol (vitamin D3) 50 mcg PO DAILY fluticasone furoate-vilanterol 200-25 mcg/dose (Breo Ellipta) 1 ea inhalation DAILY fluticasone propionate 50 mcg/actuation 1 spray intranasal BID ipratropium bromide 2 sprays intranasal Q12H losartan 50 mg PO DAILY metoprolol succinate ER 50 mg See Protocol PO DAILY 90 days oxycodone 5 mg PO Q8H PRN 28 days oxycodone myristate CR-ER (Xtampza ER) 9 mg PO Q12H 28 days pantoprazole 40 mg PO DAILY@0630 rivaroxaban (Xarelto) 20 mg PO QPM 90 days sertraline 50 mg PO BEDTIME trazodone 100 mg PO BEDTIME vibegron (Gemtesa) 75 mg PO DAILY walker use daily As directed walker A rolling walker with seat use daily As directed Do you need a note to return to daycare/school/sports/work: No HPI HPI Comments History of Present Illness Details 88-year-old woman here today with chief complaints of a UTI. Her symptoms started about 7-10 days ago with dysuria has progressed to include intermittent chills. She tried pushing fluids without relief. Denies fever, abd pain, n/v, back pain, vaginal discharge. Exam Awake alert oriented, nontoxic Mucous membranes moist Regular rate and rhythm Negative CVAT bilat Positive suprapubic tenderness Plan:urinalysis shows leukocytes, blood otherwise negative. We will treat with antibiotics. Push fluids, vaginal hygiene education provided. Return to office in follow up instructions provided. Upon reviewing the plan of care for today she reports that her primary care recently prescribed her a new medication called Xtampza ER for her chronic pain. She was taking as directed however she reports sleeping the whole weekend in her recliner after initially starting. She tried again and became extremely lethargic. She can not tolerate this medication and has stopped taking it. She also has a prescription for oxycodone IR of what she continues on. She will be out of her oxycodone IR and wonders if I can send her in something and let her primary care know about the above. I did review the ARMATURE TESTER and I did send a message to her primary care provider. See below. Patient was made aware that she does need to follow up with her primary care provider and reports that she has a 05/22/2024 05/20/2024 3 Xtampza Er 9 Mg Capsule 56 28 Ke Hol [id number] Wal (6780) 0/0 30.00 [place] 05/04/2024 05/04/2024 3 Oxycodone Hcl (Ir) 5 Mg Tablet 84 28 Ke Hol [id number] Wal (4713) 0/0 22.50 MME [place] Hi she came to walk in today for a UTI. While she was here she mentioned that she can not tolerate the Xtampza as it made her fall asleep and sleep all weekend long. Therefore she stopped it. She continues to take her oxycodone 5 mg. Above find the ARMATURE TESTER review. Looks like she will only have enough of the oxycodone IR taking it 3 times per day to get her through until Saturday. Therefore I have sent a refill on this prescription. I hope that is okay. I did advise her that I would let you know about her intolerance of the Xtampza ER and that you would follow up with her for any additional recommendations. Anabella This note is constructed using voice recognition software. While every effort has been made to ensure accuracy in admissions representative, still errors may have been included Sometimes, these errors may affect the content or meaning of the given sentence . Total time spent caring for the patient today was 30 minutes. This includes time spent before the visit reviewing the chart, time spent during the visit, and time spent after the visit on documentation [facility] Medical History (Updated 05/20/24 @ 11:51 by Allison Ham PA-C) Generalized anxiety disorder Insomnia Major depression, recurrent, chronic Arthritis High blood cholesterol COPD (chronic obstructive pulmonary disease) Urge incontinence Joint pain Chronic back pain HTN (hypertension) Bleeding hemorrhoid Back pain with history of spinal surgery Surgical History History of back surgery History of surgery Family History Father Thrombosis Mother Diabetes Heart rate problem Social History Household Members: None Housing: Apartment Do you presently have visiting nurse or other home services: Yes (PRODUCT DEVELOPMENT WORKER for housekeeping 2 times per week) Patient Tobacco Use Status: Former Tobacco user Tobacco use type: Cigarette Cigarettes Per Day: 15 Years Smoked: 10 e-Cigarette/Vaping Use: Never Used Second Hand Smoke Exposure: No Substance Use Type: Painkillers service: No Current occupational status: retired Cognitive needs: No Hearing needs: Yes (hearing aids) Vision needs: No Physical Exam Vital Signs: Last Vital Signs Pulse 80 05/30/24 11:35 BP 130/74 05/30/24 11:35 Pulse Ox 94 05/30/24 11:35 BMI result Body Mass Index 35.7 Results AMB Urinalysis, Automated UA Leukoctes 125 Yenny/uL Last Edit by Jem Spann CMA on 05/30/24 12:21 UA Nitrite Negative Last Edit by eJm Spann CMA on 05/30/24 12:21 UA Urobilinogen 0.2 mg/dL Last Edit by Jem Spann CMA on 05/30/24 12:21 UA Protein 0 mg/dL Last Edit by Jem Spann CMA on 05/30/24 12:21 UA pH 6.0 Last Edit by Jem Spann CMA on 05/30/24 12:21 UA Blood 80 Dre/uL Last Edit by Jem Spann CMA on 05/30/24 12:21 UA Specific [place] 1.010 Last Edit by Jem Spann CMA on 05/30/24 12:21 UA Ketone Negative Last Edit by Jem Spann CMA on 05/30/24 12:21 UA Bilirubin 0 mg/dL Last Edit by Jem Spann CMA on 05/30/24 12:21 UA Glucose 0 mg/dL Last Edit by Jem Spann CMA on 05/30/24 12:21 Results Reviewed Results Reviewed: Laboratory Last Values Urine pH (Auto) 6.0 05/30/24 12:13 Specific [place] (Auto) 1.010 05/30/24 12:13 Urine Protein (Auto) 0 mg/dL 05/30/24 12:13 Glucose (UA)(Auto) 0 mg/dL 05/30/24 12:13 Urine Ketones (Auto) Negative 05/30/24 12:13 Urine Blood (Auto) 80 Dre/uL 05/30/24 12:13 Urine Nitrite (Auto) Negative 05/30/24 12:13 Urine Bilirubin (Auto) 0 mg/dL 05/30/24 12:13 Urine Urobilinogen (Auto) 0.2 mg/dL 05/30/24 12:13 Leukocyte Esterase (Auto) 125 Yenny/uL 05/30/24 12:13 Assessment & Plan Assessment & Plan (1) UTI (urinary tract infection): Code(s): N39.0 - Urinary tract infection, site not specified Qualifiers: Urinary tract infection type: acute cystitis Hematuria presence: with hematuria Qualified Code(s): N30.01 - Acute cystitis with hematuria Plan: . (2) Chronic pain syndrome: Code(s): G89.4 - Chronic pain syndrome Plan: . Orders: Orders AMB Urinalysis Automated Today Z13.9 - Encounter for screening, unspecified Medications: New cephalexin 500 mg PO Q12H 6 caps 0RF 3 days Refilled oxycodone 5 mg PO Q8H PRN 84 tabs 0RF Pain 28 days On Hold oxycodone myristate CR-ER (Xtampza ER) Hold Comment: until speaking with PCP 9 mg PO Q12H 28 days 56 caps 0RF Coding Level of Care Code Est Pt Level 4 (14118) Diagnoses Acute cystitis with hematuria N30.01 Urinary tract infection type: acute cystitis Hematuria presence: with hematuria Chronic pain syndrome G89.4
--- OUTSIDE RECORDS SUMMARY | 2024-05-30 11:27 | XMS_ITS ---
Author Organization [facility], [facility] Address [address] [place] [phone] Care Team Providers Care Percussion Instrument Tuner Name Role Phone SHANDRA MIDDLETON Primary Care Provider REASON FOR VISIT f/u meds, pain Encounters Encounter Location Date Provider Diagnosis [address] [phone] 01/01/2024 SHANDRA MIDDLETON PLAN OF TREATMENT No Information Progress Notes * JACKIE COLLINSOB:[birth year] (88 yo F)Acc No.[id number]:01/01/2024 Progress Notes Patient:??KAY COLLINS Provider:??Shandra Middleton DNP :1935?Age:88 Y?Sex:Fe male Date:01/01/2024 Phone: Address:[address] [place] [address], [address] , [place], [id number] Subjective: * Chief Complaints: * ?1. F/u meds, pain. * Medical History:?? Objective: Assessment: Plan: * Treatment: * Billing Information: * Visit Code:?? * Procedure Codes:?? * Sign off status: Pending * Provider:??Shandra Middleton DNP Date:??0 01/01/2024
--- OUTSIDE RECORDS SUMMARY | 2024-05-30 11:27 | XMS_ITS | Patient Health Record ---
Author Organization [facility] Address [address], [place] [address] Care Team Providers Care Marker Shipments Name Role Phone HARRY SHANDRA Primary Care Provider [phone] Shelby Johnson Unavailable [phone] ALLERGIES Allergen (clinical drug ingredient) Drug/Non Drug Allergy documented on EMR Reaction Allergy Type Onset Date Status Dust Mites Unknown Allergy Active REASON FOR REFERRAL Reason please refer to [facility] for hearing eval thank you! Diagnosis 1 Hearing loss of righ t ear, unspecified hearing loss type (H91.91) Referral Organization [facility] Referring Provider First Name SHANDRA Referring Provider Last Name MARSHALL Referring Provider Speciality Nurse Prac titioner Referred Organization [facility] Referred Address [address], [place],[id number], Referred Provider Specialty Audiologists General Notes ADAL VARELA 1 09/23/2022 09:11:08 AM >referral, note, demographics and insurance information faxed to [facility] centralized scheduling [phone] Referral Priority Routine Reason Please refer to Pain Management at [address] [place] [address] (Radiofrequency for neck) , Diagnosis 1 Bilateral low back p ain, unspecified chronicity, unspecified whether sciatica present (M54.50) Diagnosis 2 Osteoarthritis of hi p, unspecified (M16.9) Diagnosis 3 Osteoarthritis of marco th knees, 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) Referral Organization [facility] Referring Provider First Name SHANDRA Referring Provider Last Name MARSHALL Referring Provider Speciality Nurse Prac titioner Referred Organization [facility] Referred Address [address], [id number], Referred Provider Specialty Pain Medicin e General Notes ADAL VARELA 0 09/03/2023 10:05:37 AM >demographics, referral and office note faxed to [facility] [phone], ADAL VARELA 09/05/2023 11:02:09 AM >demographics, updated referral and office note faxed to pain management at [address] [place] [address] Referral Priority Routine MEDICATIONS Medication SIG (Take, [...] a day for 90 days Active Nystatin 002784 UNIT/GM apply a light dusting to the [...] (primary) hypertension (I10) Active confirmed Essential hypertension (97698376) Problem Moderate persistent asthma, uncomplicated (J45.40) Active confirmed Uncomplicated moderate persistent asthma (608737254) Problem Osteoarthritis of hip, unspecified (M16.9) Active confirmed Osteoarthritis of hip (026287247) Problem Sacroiliitis, not elsewhere classified (M46.1) Active confirmed Solitary sacroiliitis (062759556) Problem Overactive bladder (N32.81) Active confirmed Overactive bladder (531593741) Problem 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) Active confirmed Postmenopa usal atrophic vaginitis (28807998) Problem Atrial fibrillation, unspecified type (I48.91) Active confirmed Atrial fibrillation (36086530) VITAL SIGNS Heart Rate 55 /min 01/22/2024 Temperature 98.4 degrees Fahrenheit 12/11/2023 Height-cm 149.86 cm 01/22/2024 Oximetry 95 % 01/22/2024 Blood pressure diastolic 68 mm Hg 01/22/2024 Weight-kg 79.2 kg 01/22/2024 Height 59 in 01/22/2024 Blood pressure systolic 122 mm Hg 01/22/2024 Weight 174.6 lbs 01/22/2024 BMI 35.26 kg/m2 01/22/2024 Encounters Encounter Location Date Provider Diagnosis [address] [place] [id number] 08/06/[address] [place] [id number] 01/01/[address] [id number] 01/22/2024 SHANDRA MIDDLETON Moderate persistent asthma, uncomplicated J45.40 ; Overactive bladder N32.81 and Atrial fibrillation, unspecified type I48.[address] [place] [id number] 06/12/2023 SHANDRA MIDDLETON Essential (primary) hypertension I10 ; Moderate persistent asthma, uncomplicated J45.40 ; Sacroiliitis, not elsewhere classified M46.1 ; Depression, unspecified F32.A and Actinic keratoses L57.[address] [id number] 08/27/2023 SHANDRA MIDDLETON Sacroiliitis, not elsewhere classified M46.1 ; Moderate persistent asthma, uncomplicated J45.40 ; Overactive bladder N32.81 ; Essential (primary) hypertension I10 ; Other localized visual field defect, unspecified eye H53.459 and Depression, unspecified F32.A [address] [id number] 10/29/2023 SHANDRA MIDDLETON Cervicalgia M54.2 ; Sacroiliitis, not elsewhere classified M46.1 ; Overactive bladder N32.81 and Moderate persistent asthma, uncomplicated J45.[address] [id number] 12/03/2023 Shelby Johnson Skin rash R21 [address] [id number] 12/11/2023 Shelby Johnson Shortness of breath R06.02 ; Wheezing R06.2 ; Acute cough R05.1 and Pneumonia of right lung due to infectious organism, unspecified part of lung J18.[address] [id number] 12/24/2023 SHANDRA MIDDLETON Sacroiliitis, not elsewhere classified M46.1 ; Depression, unspecified F32.A ; Moderate persistent asthma, uncomplicated J45.40 and Essential (primary) hypertension I10 [address] [id number] 06/05/2023 SHANDRA MIDDLETON Sacroiliitis, not elsewhere classified M46.[address] [id number] 06/25/2023 SHANDRA MIDDLETON Hearing loss of righ t ear, unspecified hearing loss type H91.[address] [id number] 07/12/2023 [facility] [address], [place] [id number] 08/07/2023 SHANDRA MIDDLETON Sacroiliitis, not elsewhere classified M46.[address] [id number] 09/02/2023 SHANDRA MIDDLETON Bilateral low back pain, unspecified chronicity, unspecified whether sciatica present M54.50 ; Osteoarthritis of hip, unspecified M16.9 and Osteoarthritis of both knees, unspecified osteoarthritis type M17.0 [facility] [address], [place] [id number] 09/17/[address] [id number] 10/11/[address] [id number] 10/21/2023 SHANDRA MIDDLETON Sacroiliitis, not elsewhere classified M46.[address] [id number] 11/29/2023 SHANDRA MIDDLETON Sacroiliitis, not elsewhere classified M46.[address] [id number] 12/12/[address] [id number] 01/22/2024 SHANDRA MIDDLETON Sacroiliitis, not elsewhere classified M46.1 ASSESSMENTS Encounter Date Diagnosis Assessment Notes Treatment Notes Treatment Clinical Notes 06/05/2023 Sacroiliitis, not elsewhere classified (ICD-10 - [...] due for hearing evaluation. Referral made to [facility] speech and hearing for evaluation 08/07/2023 Sacroiliitis, [...] and coordination of care. Gil Irizarry BSN, YARD CLEANER student saw the patient and formulated the note under direct supervision of Dr. Shandra Middleton DNP. 12/24/2023 Depression, unspecified (ICD-10 - [...] by hospital team. She was referred to [place] [facility], we encouraged her to make this [...] 01/22/2024 Other This visit was performed by [employer] [employer] student Sumi Bear, RN under the supervision of Shandra Middleton, DNP, FUELS SALES REPRESENTATIVE, CRABBER-C, VWCN. 06/12/2023 Other Total time spen t [...] Medicare [address] [place] [address] [id number] KAY COLLINS Self - patient is the insured [facility] [address] BRINDA THAKKAR [phone] [id number] KAY COLLINS Self - patient is the [...]
--- OUTSIDE RECORDS SUMMARY | 2024-05-30 11:27 | XMS_ITS ---
Author Organization [facility] [employer] [facility] Address [address] [place] [id number] Care Team Providers Care Chief Procurement Officer Name Role Phone SHANDRA MIDDLETON Primary Care [...] a day for 90 days Active Nystatin 735345 UNIT/GM apply a light dusting to the [...] unspecified type (I48.91) Active confirmed Atrial fibrillation (00896553) VITAL SIGNS Blood pressure systolic 122 mm Hg 01/22/20 24 Blood pressure diastolic 68 mm Hg 024 Heart Rate 55 /min 01/22/2024 Oximetry 95 % 01/22/2024 Weight 174.6 lbs 01/22/2024 Weight-kg 79.2 kg 01/22/2024 Height 59 in 01/22/2024 Height-cm 149.86 cm 01/22/2024 BMI 35.26 kg/m2 01/22/2024 Encounters Encounter Location Date Provider Diagnosis [address] [id number] 01/22/2024 SHANDRA MIDDLETON Moderate persistent asthma, uncomplicated [...] by hospital team. She was referred to [place] [facility], we encouraged her to make this appointment. Continue with current care plan until this time. She continues to diurese fluid, we will continue to monitor breathing. Provided extensive education to patient and her daughter regarding signs and symptoms that require emergency care 01/22/2024 Other This visit was performed by [facility] [facility] student Sumi Jacome RN under the supervision of Shandra Middleton DNP, ART, NUCLEAR MEDICINE PHYSICIAN-C, MAURY. PLAN OF TREATMENT Treatment Notes Assessment [...] by hospital team. She was referred to [place] [facility], we encouraged her to make this appointment. Continue with current care plan until this time. She continues to diurese fluid, we will continue to monitor breathing. Provided extensive education to patient and her daughter regarding signs and symptoms that require emergency care Other This visit was perfo rmed by [facility] [facility] student Sumi Jacome RN under the supervision of Shandra Middleton DNP, ART, NUCLEAR MEDICINE PHYSICIAN-C, MAURY. Progress Notes * JACKIE COLLINSOB:[birth year] (88 yo F)Acc No.[id number]:01/22/2024 Progress Notes Patient:??KAY COLLINS Provider:??Shandra Middleton DNP :1935?Age:88 Y?Sex:Fe male Date:01/22/2024 Phone: Address:[address] [place] [address], [place] [address] , [facility] Subjective: * Chief Complaints: * ?1. F/u [...] at the ED, she was feeling extremely bms3drmrz and SOB for 2.5 days. At ED [...] Bruise easily, PND - Sinus Infections. * Movie Extra History:?Last pap smear date??Recent CRACKER SPRAYER visit 2021 for overactive bladder w/full exam, [...] drink alcohol?: Yes, Socially (). ?Lives in [place], [place] in elderly complex, alone. * Medications:??Taking [...] MOUTH EVERY DAY NEEDED , Taking Nystatin 284203 UNIT/GM Powder apply a light dusting to [...] by hospital team. She was referred to [place] [facility], we encouraged her to make this appointment. Continue with current care plan until this time. She continues to diurese fluid, we will continue to monitor breathing. Provided extensive education to patient and her daughter regarding signs and symptoms that require emergency care? 4.??Others?? Notes: This visit was performed by [facility]ICINE [facility] student Sumi Jacome RN under the supervision of Shandra Middleton DNP, ACADEMIC DEPARTMENT CHAIR, NUCLEAR MEDICINE PHYSICIAN-C, VWCN. ? * Preventive Medicine:?Last CPE: 04/11/2022 DEXA: Colonoscopy: Yes, no longer gets them Endoscopy: No Covid Vac: Yes Flu Vac: Yes PV: Yes Shingles Vac: Yes. * Billing Information: * Visit Code:?? 36432 Office Visit, Est Pt., Level 3. * [...]
--- OUTSIDE RECORDS SUMMARY | 2024-05-30 11:27 | XMS_ITS ---
Author Organization [facility] Address [address], [place] [phone] Care Team Providers Care Supervisor Plating And Point Assembly Name Role Phone SHANDRA MCDONALD Primary Care Provider REASON FOR VISIT Refills MEDICATIONS Medication SIG [...] Active Encounters Encounter Location Date Provider Diagnosis [address] [id number] 01/22/2024 SHANDRA MCDONALD Sacroiliitis, not elsewhere classified [...] * JACKIE COLLINSOB:[birth year] (88 yo F)Acc No.[id number]:01/22/2024 Patient:??KAY COLLINS :1935?Age:88 Y?Sex:Fe male Phone: Address:[address], [address] , [place] [address] * Refills?? Refill oxyCODONE HCl Tablet, 5 [...]
--- OUTSIDE RECORDS SUMMARY | 2024-05-30 11:28 | XMS_ITS ---
Author Organization [facility] Address [address] [place] [address] Care Team Providers Care Exceptional Student Education Aide Name Role Phone Ling Middleton DNP Primary Care Provider Joanne Reeves Jr, Elbert Unavailable REASON FOR VISIT pantoprazole refill MEDICATIONS Medication SIG (Take, Route, Frequency, Duration) Notes Start Date End Date Status Pantoprazole Sodium 40 MG TAKE 1 TABLET BY MOUTH EVERY DAY for 90 days Active Encounters Encounter Location Date Provider Diagnosis [facility] [address] [place] [address] 03/26/2023 Elbert Reeves Jr PLAN OF TREATMENT Medication Medication Name Sig Start Date Stop Date Notes Pantoprazole Sodium 40 MG TAKE 1 TABLET BY MOUTH EVERY DAY for 90 days
--- OUTSIDE RECORDS SUMMARY | 2024-05-30 11:28 | XMS_ITS | Patient Health Record ---
Author Organization [facility] Address [address] [place] [address] Care Team Providers Care Proofreader Name Role Phone Ling Middleton DNP Primary [...] a day for 30 day(s) Active Ipratropium Greene 0.06 % 2 sprays in e ach nostril Nasally Three times a day for 4 day(s) Active Amoxicillin 500 MG 1 capsule Orally NEEDED FOR DENTIST Active Calcium 500 MG 1 tablet Orally Once a day Active Tramadol & Dietary Manage Prod Active Vitamin D3 Ultra Potency 21182 UNIT 1 tablet Orally as directed Active [...] Notes Problem Rectal bleeding (K62.5) Active confirmed 57225324 Problem Gastro-esophagea l reflux disease without esophagitis (K21.9) Active confirmed 949560937 Problem Cough (R05) Active confirmed 10521497 Problem Urinary incontinence, unspecified type (R32) Active confirmed 404565942 PLAN OF TREATMENT Pending Test Test Name Order Date XR GI SERIES 07/14/2015 Insurance Providers Payer Name Payer Address Payer Phone Subscriber Number Group Number Insured Name Patient Relationship to Insured Coverage Start Date Coverage End Date MEDICARE OF [place] [address] [place] [address] [phone] [id number] ANDKAY AVILES Self - patient is the insured [employer] [address] [place] THAKKAR [id number] [phone] [id number] KAY COLLINS Self - patient is the insured MEDICAL (GENERAL) HISTORY Medical History History ICD Code EGD/colonoscopy 01/03/2006. No evidence of Morse's esophagus. Hyperplastic colon polyp. Seasonal allergic rhinitis hypertension hypercholesterolemia scoliosis arthritis depression Surgical History Surgery Date(Month/Year) Vocal cord polyp 2006 Multiple back and neck surgeries rotator cuff surgery both knee replacement left
[2024-05-30 11:35] VITALS: BP 130/74; PULSE 80; O2SAT 94; BMI 35.7
== END 2024-05-30 12:31 | disposition home or self-care (01) ==
PROVIDERS: PCP Physician Assistant; Visit Provider Nurse Practitioner Family
DX: N30.01 Acute cystitis with hematuria (principal); G89.4 Chronic pain syndrome

== ENCOUNTER → 2024-05-30 11:25 | Outpatient (BNVA) | payer MEDICARE, OTHER, SELFPAY | PROVIDERS: PCP Physician Assistant; Visit Provider Nurse Practitioner Family | DX: N30.01 Acute cystitis with hematuria (principal); G89.4 Chronic pain syndrome | CPT/HCPCS: 99212 ==

== ENCOUNTER 2024-06-18 14:53 | Outpatient (AMB) | payer MEDICARE, OTHER, SELFPAY ==
--- NOTE | 2024-06-18 15:02 | A.OFFPC_ITS ---
Vital Signs 06/18/24 15:06 Height 4 ft 10.86 in Weight 175 lb 8 oz BMI 35.6 BP 130/62 Blood Pressure Location Rt brachial Position Sitting Pulse 79 Pulse Source Pulse Oximeter Pulse Oximetry (%) 97 Oxygen Delivery Method Room Air Intake Visit Reasons: discuss med /walker Intake Note: Discuss medication. The Xtampza makes her sleepy. Needs paperwork sent to [facility] for a walker. Wants to talk about [facility] recommendation about gettiing lasar treatment for SI Joint pain Allergies bee pollen Allergy (Unknown, Verified 05/30/24 11:58) Unknown house dust mite Allergy (Unknown, Verified 05/30/24 11:58) Unknown adhesive tape Adverse Reaction (Intermediate, Verified 05/30/24 11:58) Rash Medication List - Last Reconciled 06/18/24 by Allison Ham PA-C albuterol sulfate 90 mcg/actuation 2 puffs PO Q6H PRN amlodipine 10 mg PO DAILY cephalexin 500 mg PO Q12H 3 days cholecalciferol (vitamin D3) 50 mcg PO DAILY fluticasone furoate-vilanterol 200-25 mcg/dose (Breo Ellipta) 1 ea inhalation DAILY fluticasone propionate 50 mcg/actuation 1 spray intranasal BID ipratropium bromide 2 sprays intranasal Q12H losartan 50 mg PO DAILY metoprolol succinate ER 50 mg See Protocol PO DAILY 90 days oxycodone 5 mg PO Q8H PRN 28 days pantoprazole 40 mg PO DAILY@0630 rivaroxaban (Xarelto) 20 mg PO QPM 90 days sertraline 50 mg PO BEDTIME trazodone 100 mg PO BEDTIME vibegron (Gemtesa) 75 mg PO DAILY walker use daily As directed walker A rolling walker with seat use daily As directed Tobacco use date assessed: 01/29/24 Dental Screening Dental Screen Date: 01/29/24 HPI discuss med /walker HPI Details Patient is an 88-year-old female who presents today for a follow up. She has a significant past medical history of hypertension, CKD, GERD, chronic pain disorder, s/p laminectomy syndrome, mood disorder, urge incontinence and AFib. She is accompanied today by her daughter on the phone. CV: bp today is 124/68. She is currently on amlodipine 10 mg, losartan 50 mg, metoprolol 50 mg. Compliant with Xarelto. Follows with cardiology. Bps at home wnl. Denies any chest pain, shortness a breath or palpitations. Uro: On CT of the abdomen and pelvis that did show a possible complex cyst on the right kidney. No known history of this. She was referred to urology. PULM: She does have a hx of COPD. Musculoskeletal: She saw Dr. Lopez for her SI joint injection and it has helped. She states that he is going to do injections in the right knee. She is going to PT for her neck. She has been using Tylenol and oxycodone as prescribed. It does take the edge off But she has a lot of chronic and breakthrough pain. she tried the Xtampza ER but it is making her too tired. She is not a surgical candidate. Psych: She has been on Zoloft 50 mg and trazodone 100 mg for some time and feels well-controlled with this. Daughter feels that the Zoloft could be a little stronger for the anxiety. GI: She states that she does not go for any routine screening tests. She does follow with a shaft tender who has offered her a colonoscopy every year but she declines it. She follows for her pantoprazole. Endo: Following with endocrinology for her osteoporosis. She has a hx of osteoporosis and states that her mother had severe osteoporosis. She is lifting weights again. She is doing bone and balance . She was on vitamin D and calcium. Recent labs showed elevated calcium and she was advised to stop the calcium but continue vitamin-D COUNTS INCLUDE 234 BEDS AT THE [facility] Medical History (Updated 05/20/24 @ 11:51 by Allison Ham PA-C) Generalized anxiety disorder Insomnia Major depression, recurrent, chronic Arthritis High blood cholesterol COPD (chronic obstructive pulmonary disease) Urge incontinence Joint pain Chronic back pain HTN (hypertension) Bleeding hemorrhoid Back pain with history of spinal surgery Surgical History History of back surgery History of surgery Family History Father Thrombosis Mother Diabetes Heart rate problem Social History Household Members: None Housing: Apartment Do you presently have visiting nurse or other home services: Yes (SUBSTATION OPERATOR CHIEF for housekeeping 2 times per week) Patient Tobacco Use Status: Former Tobacco user Tobacco use type: Cigarette Cigarettes Per Day: 15 Years Smoked: 10 e-Cigarette/Vaping Use: Never Used Second Hand Smoke Exposure: No Substance Use Type: Painkillers service: No Current occupational status: retired Cognitive needs: No Hearing needs: Yes (hearing aids) Vision needs: No Questionnaire Thrive Questionnaire Date Thrive assessed: 01/29/24 RAYNE-7 AMB Questionnaire RAYNE-7 Date RAYNE - 7 assessed: 01/29/24 Source: Developed by Drs. Rommel Olivares, Kaylee Fabian, Al Ny and colleagues, with an educational ken from [employer]. Physical exam (Primary Care) Tobacco/Smoking Status: Tobacco use Status Tobacco use date assessed 01/29/24 05/20/24 11:34 Patient Tobacco Use Status Former Tobacco user 05/30/24 11:28 Tobacco use type Cigarette 05/20/24 11:34 e-Cigarette/Vaping Use Never Used 05/20/24 11:34 Thrive Assessment: Date of Thrive Assessment Date Thrive assessed 01/29/24 05/20/24 11:34 Const Orientation/consciousness: patient oriented x3 HENMT Ears: hearing grossly normal bilaterally Neck Thyroid: Thyroid normal Lymphatic: no lymphadenopathy noted Resp Auscultation: clear to auscultation bilaterally Cardio Rate: regular rate Rhythm: regular rhythm Heart sounds: S1 normal heart sound present and S2 normal heart sound present GI Inspection: Yes normal to inspection Palpation (GI): Soft to palpation and Other GI palpation findings present (nontender, no cva tenderness) Auscultation: normoactive bowel sounds Rectal Exam - Female: deferred Skin General skin exam: no rashes or lesions noted Neuro General: patient oriented x3, gait normal and no focal motor deficits Coding Level of Care Code Est Pt Level 4 (57063) Complex EM visit Add On G2211 Diagnoses Failed back syndrome, lumbar M96.1 Primary hypertension I10 Hypertension type: primary hypertension High blood cholesterol E78.00 Balance disorder R26.89 Assessment & Plan Assessment & Plan (1) Failed back syndrome, lumbar: Code(s): M96.1 - Postlaminectomy syndrome, not elsewhere classified Category: Medical Plan: We will discontinue Xtampza ER and try OxyContin extended release. Short term follow up in 1 month to be reassessed. paperwork for her walker filled out today. (2) HTN (hypertension): Code(s): I10 - Essential (primary) hypertension Category: Medical Qualifiers: Hypertension type: primary hypertension Qualified Code(s): I10 - Essential (primary) hypertension Plan: WNL. Continue current regimen (3) High blood cholesterol: Code(s): E78.00 - Pure hypercholesterolemia, unspecified Category: Medical Plan: Diet controlled we will monitor (4) Balance disorder: Code(s): R26.89 - Other abnormalities of gait and mobility Category: Medical Plan: following with physical therapy. Walker ordered. Plan Labs prior to next appointment. Up-to-date on flu, COVID and RSV vaccine Orders: Orders Comprehensive [place]. Panel Fast Today E78.00 - Pure hypercholesterolemia, unspecified, I10 - Essential (primary) hypertension, R26.89 - Other abnormalities of gait and mobility TSH reflex Free T4 Today E78.00 - Pure hypercholesterolemia, unspecified, I10 - Essential (primary) hypertension, R26.89 - Other abnormalities of gait and mobility Complete Blood Count Auto Diff Today E78.00 - Pure hypercholesterolemia, unspecified, I10 - Essential (primary) hypertension, R26.89 - Other abnormalities of gait and mobility Lipid Panel Today E78.00 - Pure hypercholesterolemia, unspecified, I10 - Essential (primary) hypertension, R26.89 - Other abnormalities of gait and mobility Medications: New oxycodone ER (OxyContin) Partial Fill upon patient request. 10 mg PO Q12H 28 days 56 tabs 0RF M96.1 - Postlaminectomy syndrome, not elsewhere classified
[2024-06-18 15:06] VITALS: BP 130/62; PULSE 79; O2SAT 97; BMI 35.6
== END 2024-06-18 15:50 | disposition home or self-care (01) ==
PROVIDERS: PCP Physician Assistant; Visit Provider Physician Assistant
DX: M96.1 Postlaminectomy syndrome, not elsewhere classified (principal); I10 Essential (primary) hypertension; E78.00 Pure hypercholesterolemia, unspecified; R26.89 Other abnormalities of gait and mobility

== ENCOUNTER → 2024-06-18 14:53 | Outpatient (BNVA) | payer MEDICARE, OTHER, SELFPAY | PROVIDERS: PCP Physician Assistant; Visit Provider Physician Assistant | DX: M96.1 Postlaminectomy syndrome, not elsewhere classified (principal); I10 Essential (primary) hypertension; E78.00 Pure hypercholesterolemia, unspecified; R26.89 Other abnormalities of gait and mobility | CPT/HCPCS: 99212 ==

== ENCOUNTER 2024-06-24 13:27 | Outpatient (AMB) | payer MEDICARE, OTHER, SELFPAY ==
--- NOTE | 2024-06-24 13:28 | MHC.OFFVIS ---
Vital Signs 06/24/24 13:33 Height 4 ft 10.2 in Weight 179 lb 7.3 oz BMI 37.2 BP 124/54 L Blood Pressure Location Rt brachial Position Sitting Pulse 74 Pulse Source Pulse Oximeter Intake Visit Reasons: Osteoporosis-confirmed Intake Note: Patient present today for Osteoporosis follow up. Back Sizer Required: No Accompanied by: Daughter Allergies bee pollen Allergy (Unknown, Verified 06/24/24 13:33) Unknown house dust mite Allergy (Unknown, Verified 06/24/24 13:33) Unknown adhesive tape Adverse Reaction (Intermediate, Verified 06/24/24 13:33) Rash HPI Comments Details: 88 YO Female is seen in consultation at the request of PCP for Osteoporosis. First diagnosed in 25 yrs ago .Took Fosamax for 1 yr . 25 yrs ago . Never saw endo before . Tolerated treatment well without complication. history of pathologic fracture in right wrist when falling but no ONJ. Has several servings of dietary calcium per day in the form of cheese, broccoli . Stopped Taking Calcium supplement. Takes 2000 IU of Vitamin D daily. Takes PPI, takes anticoagulant Xarelto , antiepileptic or glucocorticoid medication. Does weight bearing exercise 2 days per week in the form of weight exercises . 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 No planned upcoming dental work or extractions. DXA dated 02/28/24:FINDINGS: LEFT FEMUR, NECK: Current: BMD 0.780 g/cm2, Z-score 0.3, T-score -1.9, osteopenia. Baseline: BMD 0.774 g/cm2. LEFT FEMUR, TOTAL: Current: BMD 0.804 g/cm2, Z-score 0.4, T-score -1.6, osteopenia, 5.0% decrease from baseline (<5% change is not significant). Baseline: BMD 0.846 g/cm2. LEFT FOREARM RADIUS 33%: BMD 0.644 g/cm2, Z-score 0.7, T-score -2.6, osteoporosis. IDENTIFIED RISK FACTORS: Early menopause, secondary osteoporosis, height loss. HISTORY OF FRACTURE: None listed. MEDICATIONS: Vitamin D. MM/XR DEXA appendicular skeleton IMPRESSION: 1. DIAGNOSIS: Osteoporosis based on the lowest T-score value of -2.6 in the forearm radius 33% applying World Health Organization criteria. Labs: [facility] Medical History (Updated 05/20/24 @ 11:51 by Allison Ham PA-C) Generalized anxiety disorder Insomnia Major depression, recurrent, chronic Arthritis High blood cholesterol COPD (chronic obstructive pulmonary disease) Urge incontinence Joint pain Chronic back pain HTN (hypertension) Bleeding hemorrhoid Back pain with history of spinal surgery Surgical History History of back surgery History of surgery Family History Father Thrombosis Mother Diabetes Heart rate problem Social History Household Members: None Housing: Apartment Do you presently have visiting nurse or other home services: Yes (DRESS CUTTER for housekeeping 2 times per week) Patient Tobacco Use Status: Former Tobacco user Tobacco use type: Cigarette Cigarettes Per Day: 15 Years Smoked: 10 e-Cigarette/Vaping Use: Never Used Second Hand Smoke Exposure: No Substance Use Type: Painkillers service: No Current occupational status: retired Cognitive needs: No Hearing needs: Yes (hearing aids) Vision needs: No Assessment & Plan Assessment & Plan (1) Osteoporosis: Code(s): M81.0 - Age-related osteoporosis without current pathological fracture Category: Medical Plan: This is a 88-year-old white female with a history of osteoporosis of left forearm. Secondary causes were ruled out. According to orthopedic note, The CT of the lumbar spine shows a fusion from L3 to the sacrum, osteoporosis and thoraco lumbar scoliosis. I explained to the patient why she is not a surgical candidate. The main reason is obviously osteoporosis. While the lumbar spine bone density could not be measured, This suggests the presence of severe osteoporosis of the lumbar spine. There is a prior history of wrist fracture Plan is to continue 1200 mg of calcium continue vitamin-D supplementation. Would strongly favor anabolic therapy initially proceeded by anti resorptive therapy because of high risk of fracture and severe osteoporosis noted on imaging and prior history of wrist fracture Coding Level of Care Code Est Pt Level 3 (21298) Diagnoses Osteoporosis M81.0
[2024-06-24 13:33] VITALS: BP 124/54; PULSE 74; BMI 37.2
== END 2024-06-24 14:04 | disposition home or self-care (01) ==
PROVIDERS: PCP Physician Assistant; Visit Provider Internal Medicine Endocrinology, Diabetes & Metabolism
DX: M81.0 Age-related osteoporosis without current pathological fracture (principal)
CPT/HCPCS: 99213

== ENCOUNTER → 2024-06-24 13:27 | Outpatient (BNVA) | payer MEDICARE, OTHER, SELFPAY | PROVIDERS: PCP Physician Assistant; Visit Provider Internal Medicine Endocrinology, Diabetes & Metabolism | DX: M81.0 Age-related osteoporosis without current pathological fracture (principal); E27.49 Other adrenocortical insufficiency; Z79.01 Long term (current) use of anticoagulants | CPT/HCPCS: 99212 ==

== ENCOUNTER 2024-07-15 10:23 | Outpatient (AMB) | payer MEDICARE, OTHER, SELFPAY ==
--- NOTE | 2024-07-15 10:24 | A.OFFVIS_ITS ---
Vital Signs 07/15/24 10:27 Height 4 ft 10 in Weight 178 lb 5.663 oz BMI 37.3 BP 118/68 Blood Pressure Location Lt brachial Position Sitting Pulse 73 Pulse Source Pulse Oximeter Intake Visit Reasons: Discuss osteoporosis medications, evenity denied Intake Note: Patient present today to discuss alternative medication for Osteoporosis. Ship Joiner Required: No Accompanied by: Self / Same As Patient Allergies bee pollen Allergy (Unknown, Verified 07/15/24 10:30) Unknown house dust mite Allergy (Unknown, Verified 07/15/24 10:30) Unknown adhesive tape Adverse Reaction (Intermediate, Verified 07/15/24 10:30) Rash HPI Comments Details: 88 YO Female is seen in consultation at the request of PCP for Osteoporosis. First diagnosed in 25 yrs ago .Took Fosamax for 1 yr . 25 yrs ago . Never saw endo before . Tolerated treatment well without complication. history of pathologic fracture in right wrist when falling but no ONJ. Has several servings of dietary calcium per day in the form of cheese, broccoli . Stopped Taking Calcium supplement. Takes 2000 IU of Vitamin D daily. Takes PPI, takes anticoagulant Xarelto , antiepileptic or glucocorticoid medication. Does weight bearing exercise 2 days per week in the form of weight exercises . 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 No planned upcoming dental work or extractions. DXA dated 02/28/24:FINDINGS: LEFT FEMUR, NECK: Current: BMD 0.780 g/cm2, Z-score 0.3, T-score -1.9, osteopenia. Baseline: BMD 0.774 g/cm2. LEFT FEMUR, TOTAL: Current: BMD 0.804 g/cm2, Z-score 0.4, T-score -1.6, osteopenia, 5.0% decrease from baseline (<5% change is not significant). Baseline: BMD 0.846 g/cm2. LEFT FOREARM RADIUS 33%: BMD 0.644 g/cm2, Z-score 0.7, T-score -2.6, osteoporosis. IDENTIFIED RISK FACTORS: Early menopause, secondary osteoporosis, height loss. HISTORY OF FRACTURE: None listed. MEDICATIONS: Vitamin D. MM/XR DEXA appendicular skeleton IMPRESSION: 1. DIAGNOSIS: Osteoporosis based on the lowest T-score value of -2.6 in the forearm radius 33% applying World Health Organization criteria. Secondary workup was negative. Insurance denied Evenity [facility] Medical History (Updated 05/20/24 @ 11:51 by Allison Ham PA-C) Generalized anxiety disorder Insomnia Major depression, recurrent, chronic Arthritis High blood cholesterol COPD (chronic obstructive pulmonary disease) Urge incontinence Joint pain Chronic back pain HTN (hypertension) Bleeding hemorrhoid Back pain with history of spinal surgery Surgical History History of back surgery History of surgery Family History Father Thrombosis Mother Diabetes Heart rate problem Social History Household Members: None Housing: Apartment Do you presently have visiting nurse or other home services: Yes (SALICYLIC ACID BLENDER for housekeeping 2 times per week) Patient Tobacco Use Status: Former Tobacco user Tobacco use type: Cigarette Cigarettes Per Day: 15 Years Smoked: 10 e-Cigarette/Vaping Use: Never Used Second Hand Smoke Exposure: No Substance Use Type: Painkillers service: No Current occupational status: retired Cognitive needs: No Hearing needs: Yes (hearing aids) Vision needs: No Physical Exam Vital Signs: Last Vital Signs Pulse 73 07/15/24 10:27 BP 118/68 07/15/24 10:27 BMI result Body Mass Index 37.3 Assessment & Plan Assessment & Plan (1) Osteoporosis: Code(s): M81.0 - Age-related osteoporosis without current pathological fracture Category: Medical Plan: This is a 88-year-old white female with a history of osteoporosis of left forearm. Secondary causes were ruled out. According to orthopedic note, The CT of the lumbar spine shows a fusion from L3 to the sacrum, osteoporosis and thoraco lumbar scoliosis. I explained to the patient why she is not a surgical candidate. The main reason is obviously osteoporosis. While the lumbar spine bone density could not be measured, This suggests the presence of severe osteoporosis of the lumbar spine. There is a prior history of wrist fracture Plan is to continue 1200 mg of calcium continue vitamin-D supplementation. Would strongly favor anabolic therapy initially proceeded by anti resorptive therapy because of high risk of fracture and severe osteoporosis noted on imaging and prior history of wrist fracture. Evenity was denied by insurance. However, her insurance is changing in 07/2024 and she would like us to recent met to her new insurance for approval of Evenity Coding Level of Care Code Est Pt Level 3 (71986) Diagnoses Osteoporosis M81.0
--- OUTSIDE RECORDS SUMMARY | 2024-07-15 10:26 | XMS_ITS ---
Author Organization [facility], [facility] Address [address], [place] [id number] Care Team Providers Care Tank Builder Supervisor Name Role Phone SHANDRA MCDONALD Primary Care [...] Active Encounters Encounter Location Date Provider Diagnosis [address] [id number] 01/22/2024 SHANDRA MCDONALD Sacroiliitis, not elsewhere classified M46.1 ASSESSMENTS Encounter Date Diagnosis Assessment Notes Treatment Notes Treatment Clinical Notes Section Notes 01/22/2024 Sacroiliitis, not elsewhere classified (ICD-10 [...] * JACKIE COLLINSOB:[birth year] (88 yo F)Acc No.[id number]:01/22/2024 Patient:??KAY COLLINS :1935?Age:88 Y?Sex:Fe male Phone: Address:[address] , [address] , [place] [address] * Refills?? Refill oxyCODONE HCl Tablet, 5 [...]
[2024-07-15 10:27] VITALS: BP 118/68; PULSE 73; BMI 37.3
--- OUTSIDE RECORDS SUMMARY | 2024-07-15 10:27 | XMS_ITS | Patient Health Record ---
Author Organization [facility], [facility] Address [address], [place] [id number] Care Team Providers Care Complaint Specialist Name Role Phone SHANDRA MIDDLETON Primary Care Provider Shelby Johnson Unavailable [phone] ALLERGIES Allergen (clinical drug ingredient) Drug/Non Drug Allergy documented on EMR Reaction Allergy Type Onset Date Status Dust Mites Unknown Allergy Active REASON FOR REFERRAL Reason Please refer to Pain Management at [address] [place] [address] (Radiofrequency for neck) , Diagnosis 1 Bilateral low back p ain, unspecified chronicity, unspecified whether sciatica present (M54.50) Diagnosis 2 Osteoarthritis of hi p, unspecified (M16.9) Diagnosis 3 Osteoarthritis of marco th knees, 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) Referral Organization [facility] Referring Provider First Name SHANDRA Referring Provider Last Name HARRY Referring Provider Speciality Nurse Prac titioner Referred Organization [facility] Referred Address [address], [place],[id number], Referred Provider Specialty Pain Medicin e General Notes ADAL VARELA 0 09/03/2023 10:05:37 AM >demographics, referral and office note faxed to [facility] [phone], ADAL VARELA 09/05/2023 11:02:09 AM >demographics, updated referral and office note faxed to pain management at [address] [place] [address] Referral Priority Routine MEDICATIONS Medication SIG (Take, [...] a day for 90 days Active Nystatin 954135 UNIT/GM apply a light dusting to the affected area twice daily for 14 days External Twice a day for 30 days nystatin 100,000 unit/gram topical powder 07/11/2022 Active Meloxicam 15 MG TAKE 1 TABLET BY MOUTH EVERY DAY NEEDED for 90 Active PROBLEMS Problem Type ICD Code Onset Dates Problem Status W/U Status Risk SNOMED Code Notes Problem Essential (primary) hypertension (I10) Active confirmed Essential hypertension (10727773) Problem Moderate persistent asthma, uncomplicated (J45.40) Active confirmed Uncomplicated moderate persistent asthma (394457974) Problem Osteoarthritis of hip, unspecified (M16.9) Active confirmed Osteoarthritis of hip (592212817) Problem Sacroiliitis, not elsewhere classified (M46.1) Active confirmed Solitary sacroiliitis (574841593) Problem Overactive bladder (N32.81) Active confirmed Overactive bladder (277622711) Problem 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) Active confirmed Postmenopa usal atrophic vaginitis (76785858) Problem Atrial fibrillation, unspecified type (I48.91) Active confirmed Atrial fibrillation (99488091) VITAL SIGNS Heart Rate 55 /min 01/22/2024 Temperature 98.4 degrees Fahrenheit 12/11/2023 Oximetry 95 % 01/22/2024 Height-cm 149.86 cm 01/22/2024 Blood pressure diastolic 68 mm Hg 01/22/2024 Weight-kg 79.2 kg 01/22/2024 Height 59 in 01/22/2024 Blood pressure systolic 122 mm Hg 01/22/2024 Weight 174.6 lbs 01/22/2024 BMI 35.26 kg/m2 01/22/2024 Encounters Encounter Location Date Provider Diagnosis [address] [id number] 08/06/[address] [id number] 01/01/[address] [id number] 01/22/2024 SHANDRA MIDDLETON Moderate persistent asthma, uncomplicated J45.40 ; Overactive bladder N32.81 and Atrial fibrillation, unspecified type I48.[address] [id number] 08/27/2023 SHANDRA MIDDLETON Sacroiliitis, not elsewhere classified M46.1 ; Moderate persistent asthma, uncomplicated J45.40 ; Overactive bladder N32.81 ; Essential (primary) hypertension I10 ; Other localized visual field defect, unspecified eye H53.459 and Depression, unspecified F32.A [address] [id number] 10/29/2023 SHANDRA MIDDLETON Cervicalgia M54.2 ; Sacroiliitis, not elsewhere classified M46.1 ; Overactive bladder N32.81 and Moderate persistent asthma, uncomplicated J45.[address] [id number] 12/03/2023 Shelby Johnson Skin rash R21 [address] [id number] 12/11/2023 Shelby Johnson Shortness of breath R06.02 ; Wheezing R06.2 ; Acute cough R05.1 and Pneumonia of right lung due to infectious organism, unspecified part of lung J18.[address] [id number] 12/24/2023 SHANDRA MIDDLETON Sacroiliitis, not elsewhere classified M46.1 ; Depression, unspecified F32.A ; Moderate persistent asthma, uncomplicated J45.40 and Essential (primary) hypertension I10 [address] [id number] 08/07/2023 SHANDRA MIDDLETON Sacroiliitis, not elsewhere classified M46.[address] [id number] 09/02/2023 SHANDRA MIDDLETON Bilateral low back pain, unspecified chronicity, unspecified whether sciatica present M54.50 ; Osteoarthritis of hip, unspecified M16.9 and Osteoarthritis of both knees, unspecified osteoarthritis type M17.[address] [id number] 09/17/[address] [id number] 10/11/[address] [id number] 10/21/2023 SHANDRA MIDDLETON Sacroiliitis, not elsewhere classified M46.[address] [id number] 11/29/2023 SHANDRA MIDDLETON Sacroiliitis, not elsewhere classified M46.[address] [id number] 12/12/[address] [id number] 01/22/2024 SHANDRA MIDDLETON Sacroiliitis, not elsewhere classified M46.1 ASSESSMENTS Encounter Date Diagnosis Assessment Notes Treatment Notes Treatment Clinical Notes Section Notes 08/07/2023 Sacroiliitis, not elsewhere classified (ICD-10 - M46.1) 11/29/2023 Sacroiliitis, not elsewhere classified (ICD-10 - M46.1) 12/03/2023 Skin rash (ICD-10 - R21) Encouraged to rinse mouth and face after using Breo Rash does not appear fungal- more like contact dermatitis No bumps noted Area red- no swollen- only area affected Please notify office if rash worsens, spreads, or is not improving over the next 72 hours 12/24/2023 Sacroiliitis, not elsewhere classified (ICD-10 - M46.1) Patient has exceptional back pain. She currently doing physical therapy exercises, group classes, and taking oxycodone to relieve her back pain with positive effect. We will make no medication changes today. Total time spent with patient 20 minutes which includes face to face visit, education and coordination of care. Gil Irizarry BSN, [employer] student saw the patient and formulated the note under direct supervision of Dr. Shandra Middleton, ZINA. 12/24/2023 Depression, unspecified (ICD-10 - F32.A) Patient [...] Sacroiliitis, not elsewhere classified (ICD-10 - M46.1) 12/11/2023 Shortness of breath (ICD-10 - R06.02) Link R06.2 wheezing; R05.1 acute cough; J18.9 pneumonia Chest x-ray to r/o PNA Use Breo and rescue inhaler Continue with antibiotics for now Obtain [employer] swab- nasally to r/o bacterial vs virus Prednisone to help with inflammation Encourage cool mist humidifier- increase fluid intake Encourage cough syrup- decongestant/expe ctorant 12/11/2023 Wheezing (ICD-10 - R06.2) 10/29/2023 Cervicalgia (ICD-10 - M54.2) Will be seeing PSS next week, did see pain management and options were not appealing to her. 10/21/2023 Sacroiliitis, not elsewhere classified (ICD-10 - M46.1) 09/02/2023 Osteoarthritis of hip, unspecified (ICD-10 - M16.9) 09/02/2023 Bilateral low back pain, unspecified chronicity, unspecified whether sciatica present (ICD-10 - M54.50) 08/27/2023 Moderate persistent asthma, uncomplicated (ICD-10 - J45.40) Just getting over bronchitis, was seen in [facility]-prescribed ABX, she is feeling much better and exam is reassuring 08/27/2023 Sacroiliitis, not elsewhere classified (ICD-10 - M46.1) Doing ok on current regimen 08/27/2023 Overactive bladder (ICD-10 - N32.81) Condition is stable and well controlled on current treatment. No changes made, medication(s) refilled as indicated 09/02/2023 Osteoarthritis of both knees, unspecified osteoarthritis type (ICD-10 - M17.0) 12/24/2023 Moderate persistent asthma, uncomplicated (ICD-10 - J45.40) Patient has difficulty walking long distances, takes breo as a daily inhaler and it has helped her respiratory status, will continue with that. 10/29/2023 Sacroiliitis, not elsewhere classified (ICD-10 - M46.1) Condition is stable and well controlled on current treatment. No changes made, medication(s) refilled as indicated 12/11/2023 Acute cough (ICD-10 - R05.1) [employer] swab- nasal- respiratory panel 01/22/2024 Atrial fibrillation, unspecified type (ICD-10 - I48.91) Suspect this new occurrence of A fib was related to pyelonephritis. Patient has been started on metoprolol and Xarelto by hospital team. She was referred to [place] [facility], we encouraged her to make this appointment. Continue with current care plan until this time. She continues to diurese fluid, we will continue to monitor breathing. Provided extensive education to patient and her daughter regarding signs and symptoms that require emergency care 12/11/2023 Pneumonia of right lung due to infectious organism, unspecified part of lung (ICD-10 - J18.9) 12/24/2023 Essential (primary) hypertension (ICD-10 - I10) Patient is being managed for elevated blood pressure. Her reading in office today was 118/62, an improvement from her previous readings with us. Patient is stable on her current regimen. 10/29/2023 Overactive bladder (ICD-10 - N32.81) Condition is stable and well controlled on current treatment. No changes made, medication(s) refilled as indicated 08/27/2023 Essential (primary) hypertension (ICD-10 - I10) 08/27/2023 Other localized visual field defect, unspecified eye (ICD-10 - H53.459) Recently saw opthamology-minooe d her peripheral vision test on left only, was referred to specialist 10/29/2023 Moderate persistent asthma, uncomplicated (ICD-10 - J45.40) Condition is stable and well controlled on current treatment. No changes made, medication(s) refilled as indicated 08/27/2023 Depression, unspecified (ICD-10 - F32.A) 01/22/2024 Other This visit was performed by [employer] student Sumi Jacome RN under the supervision of Shandra Middleton, ZINA, ASSISTANT PROFESSOR OF ECONOMICS, CHURCH ADMINISTRATOR-C, VWCN. 10/29/2023 Other Total time spen t with [...] Medicare [address] [place] [address] [id number] DILAN COLLINSINE Self - patient is the insured [facility] [address] BRINDA THAKKAR [phone] [id number] DILAN COLLINSINE Self - patient is the [...]
--- OUTSIDE RECORDS SUMMARY | 2024-07-15 10:27 | XMS_ITS ---
Author Organization [facility], [facility] Address [address] [place] [id number] Care Team Providers Care Scarifier Operator Name Role Phone SHANDRA MIDDLETON Primary Care Provider REASON FOR VISIT f/u meds, pain Encounters Encounter Location Date Provider Diagnosis [address] [id number] 01/01/2024 SHANDRA MIDDLETON PLAN OF TREATMENT No Information Progress Notes * JACKIE COLLINSOB:[birth year] (88 yo F)Acc No.[id number]:01/01/2024 Progress Notes Patient:??KAY COLLINS Provider:??Shandra Middleton DNP :1935?Age:88 Y?Sex:Fe male Date:01/01/2024 Phone: Address:[address] [place] [address], [address] , [place], [place] Subjective: * Chief Complaints: * ?1. F/u meds, pain. * Medical History:?? Objective: Assessment: Plan: * Treatment: * Billing Information: * Visit Code:?? * Procedure Codes:?? * Sign off status: Pending * Provider:??Shandra Middleton DNP Date:??0 01/01/2024
--- OUTSIDE RECORDS SUMMARY | 2024-07-15 10:27 | XMS_ITS ---
Author Organization [facility] [employer] [facility] Address [address] [place] [phone] Care Team Providers Care Multimedia Coordinator Name Role Phone SHANDRA IMDDLETON Primary Care Provider [phone] ALLERGIES Allergen (clinical drug ingredient) Drug/Non Drug [...] a day for 90 days Active Nystatin 434072 UNIT/GM apply a light dusting to the [...] unspecified type (I48.91) Active confirmed Atrial fibrillation (08964793) VITAL SIGNS Blood pressure systolic 122 mm Hg 01/22/20 24 Blood pressure diastolic 68 mm Hg 024 Heart Rate 55 /min 01/22/2024 Height 59 in 01/22/2024 Weight 174.6 lbs 01/22/2024 BMI 35.26 kg/m2 01/22/2024 Oximetry 95 % 01/22/2024 Height-cm 149.86 cm 01/22/2024 Weight-kg 79.2 kg 01/22/2024 Encounters Encounter Location Date Provider Diagnosis [address] [id number] 01/22/2024 SHANDRA MIDDLETON Moderate persistent asthma, uncomplicated J45.40 ; Overactive bladder N32.81 and Atrial fibrillation, unspecified type I48.91 ASSESSMENTS Encounter Date Diagnosis Assessment Notes Treatment Notes Treatment Clinical Notes Section Notes 01/22/2024 Moderate persistent asthma, uncomplicated (ICD-10 [...] by hospital team. She was referred to [place] [facility], we encouraged her to make this appointment. Continue with current care plan until this time. She continues to diurese fluid, we will continue to monitor breathing. Provided extensive education to patient and her daughter regarding signs and symptoms that require emergency care 01/22/2024 Other This visit was performed by [employer] student Sumi Jacome RN under the supervision of Shandra Middleton DNP, ART, REINFORCER-C, MAURY. PLAN OF TREATMENT Treatment Notes Assessment [...] by hospital team. She was referred to [place] [facility]ology, we encouraged her to make this appointment. Continue with current care plan until this time. She continues to diurese fluid, we will continue to monitor breathing. Provided extensive education to patient and her daughter regarding signs and symptoms that require emergency care Other This visit was perfo rmed by [employer] [facility] [employer] student Sumi Jacome RN under the supervision of Shandra Middleton DNP, ART, REINFORCER-C, MAURY. Progress Notes * JACKIE COLLINSOB:[birth year] (88 yo F)Acc No.[id number]:01/22/2024 Progress Notes Patient:??DENNISMEKAKAY Provider:??Shandra Middleton DNP :1935?Age:88 Y?Sex:Fe male Date:01/22/2024 Phone: Address:[address] [place] [address], [place] [address] , [place], [place] Subjective: * Chief Complaints: * ?1. F/u [...] at the ED, she was feeling extremely [id number] and SOB for 2.5 days. At ED [...] Bruise easily, PND - Sinus Infections. 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 ?Lives in [place], [place] in elderly complex, alone. * Medications:??Taking [...] MOUTH EVERY DAY NEEDED , Taking Nystatin 387613 UNIT/GM Powder apply a light dusting to [...] with the patient * Allergies:??Dust Mites: Seven rgy. Objective: * Vitals:??BP: 122/68 mm Hg, H [...] by hospital team. She was referred to [place] [facility], we encouraged her to make this appointment. Continue with current care plan until this time. She continues to diurese fluid, we will continue to monitor breathing. Provided extensive education to patient and her daughter regarding signs and symptoms that require emergency care? 4.??Others?? Notes: This visit was performed by [employer] student Sumi Jacome RN under the supervision of Shandra Middleton DNP, [employer] GROUNDS SUPERINTENDENT, REINFORCER-C, VWCN. ? * Preventive Medicine:?Last CPE: 04/11/2022 DEXA: Colonoscopy: Yes, no longer gets them Endoscopy: No Covid Vac: Yes Flu Vac: Yes PV: Yes Shingles Vac: Yes. * Billing Information: * Visit Code:?? 09793 Office Visit, Est Pt., Level 3. * Procedure Codes:?? * Sign off status: Pending * Provider:??Shandra Middleton DNP Date:??0 01/22/2024 History and Physical Notes * HPI (History of Present Illness) Category Sub-Category Detail Notes Category Not es Patient Care Team Providers/ Specialists: Visit rob Kay marcus lamont in the office today for a medication [...] she is urinating quite often. Concerned that Gemsofiaa is not working the way it used to. Examination Category Sub-Category Detail Notes Category Not es General Examination General appearance: alert, p leasant, [...]
--- OUTSIDE RECORDS SUMMARY | 2024-07-15 10:27 | XMS_ITS ---
Author Organization [facility] Address [address] [place] [id number] Care Team Providers Care Airplane Patroller Name Role Phone Ling Middleton DNP Primary Care Provider Joanne Reeves Jr, Elbert Unavailable REASON FOR VISIT pantoprazole refill MEDICATIONS Medication SIG (Take, Route, Frequency, Duration) Notes Start Date End Date Status Pantoprazole Sodium 40 MG TAKE 1 TABLET BY MOUTH EVERY DAY for 90 days Active Encounters Encounter Location Date Provider Diagnosis [facility] [address] [place] [address] 03/26/2023 Elbert Reeves Jr PLAN OF TREATMENT Medication Medication Name Sig Start Date Stop Date Notes Pantoprazole Sodium 40 MG TAKE 1 TABLET BY MOUTH EVERY DAY for 90 days
--- OUTSIDE RECORDS SUMMARY | 2024-07-15 10:27 | XMS_ITS | Data Portability ---
Author Organization [place] - [facility], _[facility] Address [address] [place] [id number] Assessment Encounter Date Assessment Date Assessment LastModified by Organization Details LastModified Time 12/06/2017 12/06/2017 more then 50% time spend coordinating discharge kassandra Not available 12/08/2017 11:14:39 Plan of Treatment Reminders Order Date Submit Date Provider Last Modified By Organization Details Last Modified Time Details Appointments None record ed. Lab None record ed. Referral None record ed. Procedures None record ed. Surgeries None record ed. Imaging None record ed. Medication Orders None record ed. Patient TargetsNo targets recorded. Patient InstructionsNo instructions recorded. Reason for Referral None Reported. Medical Equipment None Reported. Allergies No known drug allergies Vitals Date Recorded Body temperature Heart rate Oxygen saturation Oxygen saturation in Arterial blood by Pulse oximetry Systolic blood pressure Diastolic blood pressure Provider Name and Address Organization Details Last Updated DateTime 8 97 [degF] 65 /min 96 % 96 % 143 mm[Hg] 79 mm[Hg] Yun Harrell MD [address] [place] [address], [phone] [place], [place] - [facility] 8 16:35:36 Date Recorded Body temperature Heart rate Respiratory rate Systolic blood pressure Diastolic blood pressure Provider Name and Address Organization Details Last Updated DateTime 8 98.5 [degF] 80 /min 18 /min 125 mm[Hg] 59 mm[Hg] GUILHERME Cazares NP [address] [place], [address] [place] [address] [facility] 8 10:16:59 Date Recorded Body temperature Heart rate Respiratory rate Systolic blood pressure Diastolic blood pressure Provider Name and Address Organization Details Last Updated DateTime 8 99.7 [degF] 68 /min 18 /min 103 mm[Hg] 57 mm[Hg] GUILHERME Cazares NP [address] [place] [address], [phone] [place] [address] [facility] 8 09:45:06 Date Recorded Body temperature Heart rate Systolic blood pressure Diastolic blood pressure Provider Name and Address Organization Details Last Updated DateTime 12/05/2017 97.8 [degF] 80 /min 147 mm[Hg] 78 mm[Hg] GUILHERME HALL NP [address] [place] [address], [phone] [facility] 12/05/2017 10:18:56 Date Recorded Body weight Body temperature Heart rate Oxygen saturation Oxygen saturation in Arterial blood by Pulse oximetry Systolic blood pressure Diastolic blood pressure Provider Name and Address Organization Details Last Updated DateTime 8 82797.5 2 g 97.8 [degF] 72 /min 96 % 96 % 99 mm[Hg] 41 mm[Hg] GUILHERME Cazares NP [address] [place] [address], [address] [place] [address] [facility] 8 09:38:58 Social History Question Answer Notes LastModified by Organizat ion Details LastModified Time Tobacco Smoking Status Former Smoker Yun Harrell MD [address] [place] [address], [phone], [facility] 12/01/2017 16:36:41 What Is Your Level Of Alcohol Consumption? None Information not available 12/01/2017 What Is Your Occupation? Retired Information not available 12/01/2017 Live Alone Or With Others? Alone Daughter Is Nearby Information not available 12/01/2017 What Was The Date Of Your Most Recent Tobacco Screening? 12/01/2017 Information not available 02/19/2019 How Much Tobacco Do You Smoke? No Information not available 12/01/2017 Has Tobacco Cessation Counseling Been Provided? No Information not available 12/01/2017 Sex: Unknown Functional Status None recorded. Mental Status None recorded. Family History Nothing Reported. Medical History No medical history recorded. Gynecological HistoryNo gynecological history recorded. Obstetrics History GPAL:G 0 P 0 0 0 0 Past Encounters Encounter ID Performer Location Encounter Start Date Encounter Closed Date Diagnosis/Indication Diagnosis SNOMED-CT Code Diagnosis ICD10 Code [id number] Yun Harrell MD [facility] [address] [place] [address] 12/01/2017 16:22:36 12/06/2017 14:56:06 Spinal stenosis of lumbar region 52787211 M48.061 Essential hypertension 87659795 I10 Hyperlipidemia 48169640 E78.5 Gastroesop hageal reflux disease without esophagitis 775951761 K21.9 Constipation 89736978 K5 9.00 Depressive disorder 3548 9007 F32.9 [id number] GUILHERME HALL NP [facility] [address] [place] [address] 12/02/2017 10:05:52 12/04/2017 11:11:45 Spinal stenosis of lumbar region 19054540 M48.061 Essential hypertension 75019454 I10 Hyperlipidemia 98416895 E78.5 Gastroesop hageal reflux disease without esophagitis 332352249 K21.9 Constipation 01587079 K5 9.00 Depressive disorder 3548 9007 F32.9 [id number] [facility] [address] [place] [address] 12/04/2017 09:44:05 12/06/2017 14:28:20 Spinal stenosis of lumbar region 08017267 M48.061 Essential hypertension 81507871 I10 Hyperlipidemia 28808955 E78.5 Gastroesop hageal reflux disease without esophagitis 840425325 K21.9 Constipation 16525212 K5 9.00 Depressive disorder 3548 9007 F32.9 Leukocytosis 536921111 D 72.447 [id number] GUILHERME HALL NP [facility] [address] [place] [address] 12/05/2017 10:17:51 12/10/2017 16:37:53 Spinal stenosis of lumbar region 80960259 M48.061 Leukocytosis 429976862 D 72.829 Essential hypertension 42289032 I10 Constipation 11916663 K5 9.00 [id number] GUILHERME HALL NP [facility] [address] [place] [address] 12/06/2017 09:34:53 12/13/2017 12:45:01 Spinal stenosis of lumbar region 75667045 M48.061 Essential hypertension 14666930 I10 Hyperlipidemia 08080026 E78.5 Gastroesop hageal reflux disease without esophagitis 454043031 K21.9 Constipation 68461780 K5 9.00 Depressive disorder 3548 9007 F32.9 Health Concerns Section Related Observation LastModified by Organization Detai ls LastModified Time None Recorded Concern Status LastModified by Organization Details LastModified Time None Recorded Advance Directives Directive None Recorded Payers Encounter Date Sequence Insurance Name Policy Number Policy Blanco Covered Member ID Blanco Member ID Guarantor Name 12/01/2017 1 [place] [employer] Brenda M Andras [id number] Brenda Andras 12/02/2017 1 [place] [employer] Brenda M Andras [id number] Brenda Andras 12/04/2017 1 [place] [employer] Brenda M Andras [id number] Brenda Andras 12/04/2017 2 [facility] - MEDICARE ENHANCE (INDEMNITY PLAN) Brenda Andras [id number] Bredna Andras 12/05/2017 1 [place] [employer] Brenda M Andras [id number] Brenda Andras 12/05/2017 2 [facility] - MEDICARE ENHANCE (INDEMNITY PLAN) Brenda Andras [id number] Brenda Andras 12/06/2017 1 [place] [employer] Brenda M Andras [id number] Brenda Andras 12/06/2017 2 [facility] - MEDICARE ENHANCE (INDEMNITY PLAN) Brenda Andras [id number] Brenda Andras Notes Date Note Type Note Provider Name and Address Organization Details Recorded Time 12/01/2017 text/html seen for admission- came from [facility] where pt had L3-S1 decompression.Pt tolerated procedure well, pain is controlled on current fentanyl patch and dilaudidPt came to for further care Yun Harrell MD [address] [place] [address], [phone], [facility] 12/01/2017 16:43:01 12/02/2017 text/html seeing pt today for f/u; continues to work with therapy here, making progress. Pt came from [facility] where pt had L3-S1 decompression.Pt tolerated procedure well, pain is controlled on current fentanyl patch and dilaudid. GUILHERME HALL NP [address] [place], [address], [facility] - [facility] 12/02/2017 10:21:10 12/04/2017 text/html seeing pt today for f/u; continues to work with therapy here, making progress. Pt came from [facility] where pt had L3-S1 decompression.Pt tolerated procedure well, pain is controlled on current fentanyl patch and dilaudid. GUILHERME HALL NP [address] [facility] [place], [address], [facility] 12/04/2017 12:59:51 12/05/2017 text/html seeing pt today for f/u; continues to work with therapy here, making progress.Ua was obtained yesterday; pt had elevated wbc Pt came from [facility] where pt had L3-S1 decompression.Pt tolerated procedure well, pain is controlled on current fentanyl patch and dilaudid. GUILHERME HALL NP [address] [place], [address], [facility] - [facility] 12/07/2017 15:19:06 12/06/2017 text/html seeing pt today for d/c; pt has done well with therapy here, made progress, will be d/c home tomorrow. GUILHERME HALL NP [address] [place], [address], [facility] - [facility] 12/08/2017 11:15:02 OBGyn Episode No OBEpisode recorded.
--- OUTSIDE RECORDS SUMMARY | 2024-07-15 10:27 | XMS_ITS | Patient Health Record ---
Author Organization [facility] Address [address] [place] [address] Care Team Providers Care Scientific Specialist Name Role Phone Ling Middleton DNP Primary [...] a day for 30 day(s) Active Ipratropium Monona 0.06 % 2 sprays in e ach nostril Nasally Three times a day for 4 day(s) Active Amoxicillin 500 MG 1 capsule Orally NEEDED FOR DENTIST Active Calcium 500 MG 1 tablet Orally Once a day Active Tramadol & Dietary Manage Prod Active Vitamin D3 Ultra Potency 62606 UNIT 1 tablet Orally as directed Active [...] Notes Problem Rectal bleeding (K62.5) Active confirmed 72934331 Problem Gastro-esophagea l reflux disease without esophagitis (K21.9) Active confirmed 031682475 Problem Cough (R05) Active confirmed 75616412 Problem Urinary incontinence, unspecified type (R32) Active confirmed 871077721 PLAN OF TREATMENT Pending Test Test Name Order Date XR GI SERIES 07/14/2015 Insurance Providers Payer Name Payer Address Payer Phone Subscriber Number Group Number Insured Name Patient Relationship to Insured Coverage Start Date Coverage End Date MEDICARE OF [place] [address] [place] [address] [id number] ANDKAY AVILES Self - patient is the insured [employer] [address] [place]AKKAR [id number] [id number] KAY COLLINS Self - patient is the insured MEDICAL (GENERAL) HISTORY Medical History History ICD Code EGD/colonoscopy 01/03/2006. No evidence of Morse's esophagus. Hyperplastic colon polyp. Seasonal allergic rhinitis hypertension hypercholesterolemia scoliosis arthritis depression Surgical History Surgery Date(Month/Year) Vocal cord polyp 2006 Multiple back and neck surgeries rotator cuff surgery both knee replacement left
--- OUTSIDE RECORDS SUMMARY | 2024-07-15 10:28 | XMS_ITS | Data Portability ---
Author Organization [facility] Pain [facility] Address [address] [facility] [address] [place] [address] Care Team Providers Care Laster Hand Name Role Phone SHALA DELGADO Referring Provider [phone] ANISHA RALPH Primary Care Provider Assessment Encounter Date Assessment Date Assessment LastModified by Organization Details LastModified Time 08/16/2015 08/16/2015 Brenda Wolf is a 79 year old woman with complaints of??low back pain . On exam, she has pain on flexion and a positive??facet loading??on the right. MRI Lumbar spine shows Marked midlumbar dextro scoliosis. Extensive multilevel discogenic degenerative change with multilevel spondylosis, disc osteophyte complexes, and facet arthrosis with multilevel bilateral neural foraminal stenosis with multilevel nerve root impingement, most apparent on the right at L5-S1 and on the left at L3-4. 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 Central and right lateral disc herniations at T12-L1, right paramedian to lateral disc herniation at L2-3, and other levels of disc osteophyte complex and disc herniation. She is here for a??left facet joint injections at L4-5 and L5-S1 levels under fluoroscopic guidance. The risks and benefits of the procedure?? were discussed in detail. She wishes to proceed. She will follow up in four weeks. She is??complaining of pain in her left shoulder . I will order an X-Ray of her left shoulder .She will follow in 3-4 weeks. [email or web address] Not available 08/16/2015 13:06:36 09/01/2015 09/01/2015 Brenda Wolf is a 79 year old woman with complaints of?? low back pain radiating into both hips, right is greater than left . On exam, she has pain on flexion and a positive??facet loading??on the right. MRI Lumbar spine shows Marked midlumbar dextro scoliosis. Extensive multilevel discogenic degenerative change with multilevel spondylosis, disc osteophyte complexes, and facet arthrosis with multilevel bilateral neural foraminal stenosis with multilevel nerve root impingement, most apparent on the right at L5-S1 and on the left at L3-4. 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 Central and right lateral disc herniations at T12-L1, right paramedian to lateral disc herniation at L2-3, and other levels of disc osteophyte complex and disc herniation.??She reports good pain benefit after ??right facet joint injections at L4-5 and L5-S1 levels under fluoroscopic guidance with return of pain back to baseline. I recommend right medial branch block under fluoroscopic guidance.The risks and benefits of the procedure?? were discussed in detail. She wishes to proceed.??An appointment has been booked for the same. She needs a scoop driver on the day of the procedure. If she has good pain benefit after the medial branch block , we will proceed with the radiofrequency ablation for her. I will start her on celebrex - If she has recurrence of her cough , then she needs to stop the medication. [email or web address] Not available 09/01/2015 15:36:42 09/07/2015 09/07/2015 Brenda Wolf is a 79 year old woman with complaints of?? low back pain radiating into both hips, right is greater than left . On exam, she has pain on flexion and a positive??facet loading??on the right. MRI Lumbar spine shows Marked midlumbar dextro scoliosis. Extensive multilevel discogenic degenerative change with multilevel spondylosis, disc osteophyte complexes, and facet arthrosis with multilevel bilateral neural foraminal stenosis with multilevel nerve root impingement, most apparent on the right at L5-S1 and on the left at L3-4. 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 Central and right lateral disc herniations at T12-L1, right paramedian to lateral disc herniation at L2-3, and other levels of disc osteophyte complex and disc herniation.??She reports good pain benefit after ??right facet joint injections at L4-5 and L5-S1 levels under fluoroscopic guidance with return of pain back to baseline.??She is here for a??right medial branch block under fluoroscopic guidance.The risks and benefits of the procedure?? were discussed in detail. She wishes to proceed.?? If she has good pain benefit after the medial branch block , we will proceed with the radiofrequency ablation for her. She was advised to keep a pain diary. [email or web address] a Not available 09/08/2015 14:23:25 09/13/2015 09/13/2015 Brenda Wolf is a 79 year old woman with complaints of?? low back pain radiating into both hips, right is greater than left . On exam, she has pain on flexion and a positive??facet loading??on the right. MRI Lumbar spine shows Marked midlumbar dextro scoliosis. Extensive multilevel discogenic degenerative change with multilevel spondylosis, disc osteophyte complexes, and facet arthrosis with multilevel bilateral neural foraminal stenosis with multilevel nerve root impingement, most apparent on the right at L5-S1 and on the left at L3-4. 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 Central and right lateral disc herniations at T12-L1, right paramedian to lateral disc herniation at L2-3, and other levels of disc osteophyte complex and disc herniation.??She reports good pain benefit after ??right facet joint injections and medial branch blocks at L4-5 and L5-S1 levels under fluoroscopic guidance with return of pain back to baseline.??She is here for a??right radiofrequency ablation of?? L4, L5 and S1 ??medial branches under fluoroscopic guidance.The risks and benefits of the procedure?? were discussed in detail. She wishes to proceed.?? She will follow up in six weeks. [email or web address] a Not available 09/13/2015 15:04:09 09/23/2015 09/23/2015 Brenda Wolf is a 79 year old woman with complaints of?? low back pain radiating into both hips, right is greater than left .?She is here for a??follow up after a right radiofrequency ablation of?? L4, L5 and S1 ??medial branches under fluoroscopic guidance. She reports muscular pain . Neuro exam is within normal limits. PO NSAIDs cause increase in her reflux symptoms and is associated with coughing. I ahve advised her to stop taking PO NSAIDs. I will try flector patches for her muscular pain. She was reassured that the muscle pain will subside in a few days. Addendum: she states she develop a rash after applying the flector patches. I have advised her to stop. She is taking tramadol and tylenol and reports improvement of her pain. She will follow up as needed. [email or web address] Not available 09/27/2015 11:36:11 Plan of Treatment Reminders Order Date Submit Date Provider Last Modified By Organization Details Last Modified Time Details Appointments None recorded . Lab None recorded . Referral None recorded . Procedures None recorded . Surgeries None recorded . Imaging None recorded . Medication Orders Celebrex 200 mg capsule 2015 016 [id number], [address] [place], [address], 6 08:56:14 Flector 1.3 % transder mal 12 hour patch 2015 016 [id number], [address] [place], [address], 6 11:36:11 Patient TargetsNo targets recorded. Patient Instructions Encounter Date Encounter Id Patient Instructions Last Modified By Organization Details Last Modified Time 08/16/2015 [id number] She was advised against bed rest lasting longer than four days and to continue activities as tolerated. [email or web address] Not available 08/16/2015 13:04:51 09/01/2015 [id number] She was advised against bed rest lasting longer than four days and to continue activities as tolerated. [email or web address] Not available 09/01/2015 15:28:37 09/07/2015 [id number] She was advised against bed rest lasting longer than four days and to continue activities as tolerated. [email or web address] Not available 09/08/2015 14:18:24 09/13/2015 [id number] She was advised against bed rest lasting longer than four days and to continue activities as tolerated. [email or web address] Not available 09/13/2015 14:59:45 09/23/2015 [id number] She was advised against bed rest lasting longer than four days and to continue activities as tolerated. [email or web address] Not available 09/27/2015 10:03:45 Reason for Referral None Reported. Results Created Date Observation Date Name Description Value Unit Range Abnormal Flag Note LastModifiedBy Organization Detail LastModifiedTime 08/22/19 16 08/22/2015 x-ray , shoul lissette, 2 views No observ ation record ed. [facility] [address] [place] [address], [place], [address], 09/01/2015 15:28:37 Result Notes None recorded. Problems Name Problem SNOMED Code Status Onset Date Resolution Date Notes Provider Name and Address Organization Details Recorded Time Enthesopathy of hip region 90014504 Active Johnny henning MD [address] , [address], [place], [address], [place] [facility] 6 11:36:10 Lumbosacral spondylosis without myelopathy 83916519 Active Johnny henning MD [address] , [address], [place], [address], [place] [facility] 6 11:36:10 Lumbar post-laminecto my syndrome 059491861 Active Johnny henning MD [address] , [address], [facility] [place], [address], [place] [facility] 6 11:36:10 Lumbosacral radiculitis 73551577 Jillian henning MD [address] , [address], [facility] [place], [address], [place] [facility] 6 11:36:10 Disorder of bursa of shoulder region 30705936 Jillian henning MD [address] , [address], [facility] [place], [address], [place] [facility] 6 11:36:11 Muscle pain 05986581 Active Johnny henning MD [address] , [address], [place], [address], [place] [facility] 6 11:36:10 Problem Notes None recorded. Procedures Surgical History Date Name Laterality Status Provider Name and Address Organization Details Recorded Time 09/13/19 16 Radiofrequency of Lumbar/Sacral medial branches supplying the facets under fluoroscopic guidance completed Johnny Montanez MD [address] , [address], [place], [address], [place] [facility] 09/14/2015 14:17:33 09/07/19 16 Lumbar median branch block under fluroscopic guidance completed Johnny Montanez MD [address] , [address], [place], [address], [place] [facility] 09/08/2015 14:23:25 08/16/19 16 Fluoroscopic Guided Lumbar Facet Steroid Injections of levels completed Johnny Montanez MD [address] , [address], [place], [address], [place] [facility] 08/16/2015 13:09:50 03/08/20 15 Fluoroscopic Guided Lumbar Facet Steroid Injections of levels completed Johnny Montanez MD [address] [facility] [address], [place], [address], [place] [facility] 03/09/2015 09:22:44 Other completed Anishagay Peñaer [place] [facility] 03/01/2015 10:58:13 Carpal tunnel release completed Anishagay Peñaer [place] [facility] 03/01/2015 10:58:13 Lumbar Fusion completed Anisha Mendieta [place] [facility] 03/01/2015 10:58:13 Arthroscopic Surgery completed Anisha Peñaer [place] [facility] 03/01/2015 10:58:13 Other completed Anishagay Peñaer [place] [facility] 03/01/2015 10:58:13 Knee Surgery completed Anishagay Mendieta [place] [facility] 03/01/2015 10:58:13 Other completed Anisha Peñaer [place] [facility] 03/01/2015 10:58:13 Appendectomy completed Anisha Mendieta [place] [facility] 03/01/2015 15:26:13 Imaging Results Imaging Date Name Status LastModified by Organiz ation Details LastModified Time 08/22/2015 x-ray, shoulder, 2 views completed [facility] [address] [facility], [place], [address], 09/01/2015 15:28:37 Procedure Notes None recorded. Medical Equipment None Reported. Allergies No known drug allergies Medications Name Sig Start Date Stop Date Status Note LastModified by Organization Details LastModified Time amlodipine besylate 10 mg tabs active Not Available Not Available Not Available amoxicillin 500 mg caps active Not Available Not Available Not Available fentanyl 12 mcg/hr pt72 active Not Available Not Available Not Available acetaminoph en/codeine #3 300-30 mgtabs active Not Available Not Available Not Available fentanyl 50 mcg/hr pt72 active Not Available Not Available Not Available meloxicam 15 mg tabs active Not Available Not Available N ot Available oxycodone hcl 5 mg tabs active Not Available Not Available Not Available clonidine hcl 0.1 mg tabs active Not Available Not Available Not Available prednisolon e sodium phosphate 15 mg/5ml soln active Not Available Not Available Not Available sertraline hcl 100 mg tabs active Not Available Not Available Not Available ipratropium bromide 0.06 % soln active Not Available Not Available Not Available ventolin hfa 108 (90 base) mcg/actaers active Not Available Not Available Not Available oxycodone/a cetaminophe n 5-325 mg tabs active Not Available Not Available Not Available metoprolol succinate er 25 mg tb24 active Not Available Not Available Not Available diclofenac sodium dr 75 mg tbec active Not Available Not Available N ot Available sertraline hcl 50 mg tabs active Not Available Not Available Not Available azithromyci n 250 mg tabs active Not Available Not Available Not Available tramadol hcl 50 mg tabs active Not Available Not Available Not Available lorazepam 0.5 mg tabs active Not Available Not Available Not Available trazodone hcl 50 mg tabs active Not Available Not Available Not Available metoprolol succinate er 50 mg tb24 active Not Available Not Available Not Available fentanyl 25 mcg/hr pt72 active Not Available Not Available Not Available atorvastati n calcium 10 mg tabs active Not Available Not Available N ot Available losartan potassium 100 mg tabs active Not Available Not Available Not Available amoxicillin 500 mg capsule TAKE 4 CAPSULES BY MOUTH 1 HOUR PRIOR TO DENTAL APPT. DIRECTED active Not Available Not Available No t Available clonidine HCl 0.1 mg tablet TAKE 1 TABLET BY MOUTH TWICE A DAY NEEDED active Not Available Not Available No t Available prednisolon e sodium phosphate 15 mg/5 mL (3 mg/mL) oral solution TAKE 1 TEASPOONF UL (5ML) BY MOUTH TWICE A DAY active Not Available Not Available No t Available trazodone 50 mg tablet active Not Available Not Available Not Available atorvastati n 10 mg tablet TAKE 1 TABLET BY MOUTH ONCE A DAY AT BEDTIME active Not Available Not Available No t Available azithromyci n 250 mg tablet TAKE 2 TABLETS BY MOUTH TODAY, THEN TAKE 1 TABLET DAILY FOR 4 DAYS active Not Available Not Available No t Available metoprolol succinate ER 50 mg tablet,exte nded release 24 hr active Not Available Not Available Not Available meloxicam 15 mg tablet TAKE 1 TABLET BY MOUTH EVERY DAY NEEDED FOR PAIN active Not Available Not Available No t Available sertraline 100 mg tablet active Not Available Not Available Not Available acetaminoph en 300 mg-codeine 30 mg tablet TAKE 1 TABLET BY MOUTH EVERY 6 HOURS NEEDED FOR PAIN active Not Available Not Available No t Available tramadol 50 mg tablet TAKE 1 TABLET BY MOUTH EVERY 6 HOURS NEEDED FOR PAIN active Not Available Not Available No t Available Celebrex 200 mg capsule Take 1 capsule every day by oral route after meals for 30 days. 2015 active Not Available Not Available Not Avai lable oxycodone-a cetaminophe n 5 mg-325 mg tablet TAKE 1 TO 2 TABLETS BY MOUTH EVERY 4 TO 6 HOURS NEEDED FOR PAIN *NOT TO EXCEED 9 PER DAY* active Not Available Not Available No t Available lorazepam 0.5 mg tablet TAKE 1 TABLET BY MOUTH AT NIGHT NEEDED active Not Available Not Available No t Available amlodipine 10 mg tablet active Not Available Not Available Not Available pantoprazol e 40 mg tablet,rahul yed release active Not Available Not Available Not Available omeprazole 20 mg capsule,del ayed release active Not Available Not Available Not Available diclofenac sodium 75 mg tablet,rahul yed release TAKE 1 TABLET BY MOUTH TWICE A DAY active Not Available Not Available No t Available metoprolol succinate ER 25 mg tablet,exte nded release 24 hr active Not Available Not Available Not Available ipratropium bromide 42 mcg (0.06 %) nasal spray USE 1 SPRAY IN EACH NOSTRIL TWICE A DAY active Not Available Not Available No t Available indomethaci n ER 75 mg capsule,ext ended release TAKE ONE CAPSULE BY MOUTH TWICE A DAY active Not Available Not Available No t Available losartan 100 mg tablet active Not Available Not Available Not Available sertraline 50 mg tablet active Not Available Not Available Not Available Ventolin HFA 90 mcg/actuati on aerosol inhaler TAKE 2 PUFFS BY MOUTH EVERY 6 HOURS NEEDED FOR COUGH, CHEST TIGHTNESS OR CHEST TIGHTNESS active Not Available Not Available No t Available oxycodone 5 mg tablet TAKE 1 TABLET BY MOUTH EVERY 6 HOURS NEEDED *MAX 4 TABLETS/ DAY* active Not Available Not Available No t Available fentanyl 12 mcg/hr transdermal patch APPLY 1 PATCH EVERY 72 HOURS active Not Available Not Available No t Available Fish Oil active Not Available Not Avai lable Not Available Calcium 600 daily active Not Available Not A vailable Not Available Zostavax (PF) 19,400 unit/0.65 mL subcutaneou s suspension active Not Available Not Available N ot Available Flector 1.3 % transdermal 12 hour patch APPLY 1 PATCH TO THE SKIN TWICE A DAY active Pt reports she had a rash after using patch. (kf) Not Available Not Available Not Available Vitamin D3 50 mcg (2,000 unit) tablet Take by oral route. active Not Available Not Available No t Available Vitals Date Recorded Heart rate Oxygen saturation Oxygen saturation in Arterial blood by Pulse oximetry Systolic blood pressure Diastolic blood pressure Provider Name and Address Organization Details Last Updated DateTime 6 68 /min 97 % 97 % 182 mm[Hg] 72 mm[Hg] Anisha Mendieta [facility] 6 10:23:34 Date Recorded Oxygen saturation Oxygen saturation in Arterial blood by Pulse oximetry Heart rate Systolic blood pressure Diastolic blood pressure Provider Name and Address Organization Details Last Updated DateTime 6 97 % 97 % 76 /min 118 mm[Hg] 58 mm[Hg] Anisha Mendieta [facility] 6 15:00:38 Date Recorded Oxygen saturation Oxygen saturation in Arterial blood by Pulse oximetry Heart rate Systolic blood pressure Diastolic blood pressure Provider Name and Address Organization Details Last Updated DateTime 6 99 % 99 % 65 /min 140 mm[Hg] 88 mm[Hg] Anisha Mendieta [facility] 6 09:43:17 Date Recorded Oxygen saturation Oxygen saturation in Arterial blood by Pulse oximetry Heart rate Systolic blood pressure Diastolic blood pressure Provider Name and Address Organization Details Last Updated DateTime 6 98 % 98 % 67 /min 157 mm[Hg] 45 mm[Hg] Anisha Mendieta [facility] 6 10:18:19 Date Recorded Oxygen saturation Oxygen saturation in Arterial blood by Pulse oximetry Heart rate Systolic blood pressure Diastolic blood pressure Provider Name and Address Organization Details Last Updated DateTime 6 97 % 97 % 69 /min 143 mm[Hg] 76 mm[Hg] Anisha Mendieta [facility] 6 08:56:14 Social History Question Answer Notes LastModified by Organizat ion Details LastModified Time Tobacco Smoking Status Former Smoker Quit x 40 years Not Available [facility] 05/13/2020 03:16:11 What Is Your Level Of Alcohol Consumption? Moderate Wine [id number] Information not available 05/13/2020 Are You Currently Employed? No [id number] Information not available 05/13/2020 Which Illicit Or Recreational Drugs Have You Used? No [id number] Information not available 05/13/2020 Education 12 Information no t available 03/01/2015 Live Alone Or With Others? Alone Information not available 03/01/2015 Marital Status Informatio n not available 03/01/2015 How Many Years Have You Smoked Tobacco? 20 [id number] Information not available 05/13/2020 Sex: Unknown Functional Status None recorded. Mental Status None recorded. Family History Relationship Description Onset Age of this Age Resolved Age Notes LastModified by Organization Details LastModified Time Mother Diabetes mellitus [email or web address] Not available 07/2015 10:03:15 Mother Problem Arthri tis [email or web address] Not available 09/27/2015 10:03:15 Medical History Condition Response Anxiety Disorder Y Neuropathy/Neuralgia Y Arthritis Y Hypertension Y Gynecological HistoryNo gynecological history recorded. Obstetrics History GPAL:G 0 P 0 0 0 0 Past Encounters Encounter ID Performer Location Encounter Start Date Encounter Closed Date Diagnosis/Indication Diagnosis SNOMED-CT Code Diagnosis ICD10 Code [id number] [facility] [address] [facility] [address] 03/01/2015 10:09:29 03/02/2015 11:29:26 Lumbar post-laminectomy syndrome 123893540 Lumbosacra l radiculitis 12047583 Lumbosacra l spondylosis without myelopathy 86733107 Enthesopat hy of hip region 32928352 [id number] [facility] [address] [facility] [place] [address] 03/08/2015 14:21:23 03/09/2015 09:25:14 Lumbosacral spondylosis without myelopathy 30128720 Enthesopat hy of hip region 43177758 Lumbosacra l radiculitis 31020144 Lumbar post-laminectomy syndrome 563793823 [id number] [facility] [address] [facility] [address] 04/11/2015 14:50:34 04/12/2015 09:13:56 Lumbosacral spondylosis without myelopathy 52993222 Enthesopat hy of hip region 02872649 Lumbosacra l radiculitis 36488005 Lumbar post-laminectomy syndrome 198383106 [id number] Johnny Montanez MD [facility] [address] [facility] [place] [address] 08/16/2015 10:11:47 08/16/2015 14:46:00 Lumbosacral spondylosis without myelopathy 42048665 M47.817 Enthesopat hy of hip region 08984293 M76.9 Lumbosacra l radiculitis 51096646 M54.17 Lumbar post-laminectomy syndrome 150419231 M96.1 Disorder o f bursa of shoulder region 02486081 M25.812 [id number] Johnny Montanez MD PAIN OFFICE [address] [facility] [place] [address] 09/01/2015 14:03:53 09/01/2015 15:37:11 Lumbosacral spondylosis without myelopathy 11705088 M47.817 Enthesopat hy of hip region 93979611 M76.9 Disorder o f bursa of shoulder region 66280897 M25.812 Lumbosacra l radiculitis 08201009 M54.17 Lumbar post-laminectomy syndrome 576595390 M96.1 [id number] Johnyn Montanez MD [facility] [address] [place] [address] 09/07/2015 09:36:32 09/08/2015 14:24:03 Lumbosacral spondylosis without myelopathy 09816774 M47.817 Enthesopat hy of hip region 94925678 M70.61 Disorder o f bursa of shoulder region 78820327 M25.812 Lumbosacra l radiculitis 69467264 M54.17 Lumbar post-laminectomy syndrome 267560807 M96.1 [id number] Johnny Montanez MD PAIN OFFICE [address] [place] [address] 09/13/2015 10:08:37 09/13/2015 15:13:45 Lumbosacral spondylosis without myelopathy 87032143 M47.817 Lumbar post-laminectomy syndrome 722420730 M96.1 Enthesopat hy of hip region 73944271 M70.61 Disorder o f bursa of shoulder region 41768582 M25.812 Lumbosacra l radiculitis 83744392 M54.17 [id number] Johnny Montanez MD PAIN OFFICE [address] [place] [address] 09/23/2015 08:47:47 09/27/2015 11:36:33 Lumbosacral spondylosis without myelopathy 70511911 M47.817 Lumbar post-laminectomy syndrome 237158412 M96.1 Lumbosacra l radiculitis 42679621 M54.17 Muscle pain 97020404 M79 .1 Enthesopat hy of hip region 45840450 M70.61 Disorder o f bursa of shoulder region 07740447 M25.812 Health Concerns Section Related Observation LastModified by Organization Detai ls LastModified Time None Recorded Concern Status LastModified by Organization Details LastModified Time None Recorded Advance Directives Directive None Recorded Payers Encounter Date Sequence Insurance Name Policy Number Policy Blanco Covered Member ID Blanco Member ID Guarantor Name 08/16/2015 1 [place]IC[place]: [employer]ATIONAL [employer] Brenda M Andras [id number] Brenda Andras 08/16/2015 2 [facility] (MEDICARE SUPPLEMENT) Brenda Andras [id number] Brenda Andras 09/01/2015 1 [facility] Brenda M Andras [id number] Brenda Andras 09/01/2015 2 [facility] (MEDICARE SUPPLEMENT) Brenda Andras [id number] Brenda Andras 09/07/2015 1 [place] Brenda M Andras [id number] Brenda Andras 09/07/2015 2 [facility] (MEDICARE SUPPLEMENT) Brenda Andras [id number] Brenda Andras 09/13/2015 1 [place] Brenda M Andras [id number] Brenda Andras 09/13/2015 2 [facility] (MEDICARE SUPPLEMENT) Brenda Andras [id number] Brneda Andras 09/23/2015 1 [place] Brenda M Andras [id number] Brenda Andras 09/23/2015 2 [facility] (MEDICARE SUPPLEMENT) Brenda Andras [id number] Brenda Andras Notes Date Note Type Note Provider Name and Address Organization Details Recorded Time 08/16/2015 text/html She is here for a left facet joint injection under fluoroscopic guidance She had a trial of right facet joint steroid injection under fluoroscopic guidance in 03/08/2015. She reports good pain benefit with return of pain few weeks ago. She has no pain , numbness or weakness in her lower extremities. She has no history of bladder or bowel incontinence. She is complaining of pain in her left shoulder. Johnny Montanez MD [address] [place] [address] , [address], [place], [address], [facility] - Pain Management 08/18/2015 09:24:14 09/01/2015 text/html She is here for a follow up after a left shoulder X-ray. 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 She states she has seen a PA at [facility] and she recommended a total knee replacement. She is on a waiting list for the surgery. She states she has to get her back fixed before the TKR surgery . She had good results with radiofrequency ablation in the past . She has been having chronic cough and her PCP thought it was due to reflux disease and she has stopped the meloxicam . Her cough has improved but her back pain has worsened. She states her greatest pain is in her back and her shoulder is not an issue presently. Johnny Montanez MD [address] , [place] [address], [place], [address], [employer] [facility] Pain Management 09/02/2015 11:09:45 09/07/2015 text/html She is here for a trial of right median branch block under fluoroscopic guidance at L4, L5and S1 medial branches. Johnny Montanez MD [address] , [address], [place], [address], [employer] - Pain Management 09/08/2015 15:45:44 09/13/2015 text/html She is here for radiofrequency ablation of right medial branches L4, L5 and S1 under fluoroscopic guidance. She reports 100% pain relief after the median branch block for 8-12 hours with a slow return of pain. She has kept a pain diary. She had a good response and hence I will proceed with the RF. Johnny Montanez MD [address] [facility] , [facility] [address], [place], [address], [employer] [facility] Pain Management 09/14/2015 14:17:41 09/23/2015 text/html She is here for a follow up. She states she is noticing pain in her muscles in the low back and she had difficulty sleeping due to pain and muscle spasms since the radiofrequency ablation. She has been applying ice. She has seen Tamika at [facility] and has started synvisc injections for her knee . She advised her to take Ibuprofen. She states she had reflux associated with coughing while she was on meloxicam and hence has stopped meloxicam. Since being on ibuprofen, her coughing has restarted. She has no radiating pain, numbness or weakness in her lower extremities. She has no history of bladder or bowel incontinence. Johnny Montanez MD [address] [facility] , [address], [place], [address], [place] - [place] 10/03/2015 08:52:43 OBGyn Episode No OBEpisode recorded.
== END 2024-07-15 10:46 | disposition home or self-care (01) ==
PROVIDERS: PCP Physician Assistant; Visit Provider Internal Medicine Endocrinology, Diabetes & Metabolism
DX: M81.0 Age-related osteoporosis without current pathological fracture (principal)
CPT/HCPCS: 99213

== ENCOUNTER → 2024-07-15 10:23 | Outpatient (BNVA) | payer MEDICARE, OTHER, SELFPAY | PROVIDERS: PCP Physician Assistant; Visit Provider Internal Medicine Endocrinology, Diabetes & Metabolism | DX: M81.0 Age-related osteoporosis without current pathological fracture (principal) | CPT/HCPCS: 99212 ==

== ENCOUNTER 2024-08-05 10:11 | Outpatient (AMB) | payer MEDICARE, OTHER, SELFPAY ==
--- NOTE | 2024-08-05 10:13 | MHC.PC.OV ---
Vital Signs 08/05/24 10:20 Height 4 ft 10 in Weight 177 lb 8 oz BMI 37.1 BP 140/70 H Blood Pressure Location Rt brachial Position Sitting Respiration 16 Pulse 75 Pulse Source Pulse Oximeter Temp 98.0 F Temp Source Oral Pulse Oximetry (%) 97 Oxygen Delivery Method Room Air Intake Visit Reasons: pain meds/htn Intake Note: HTN FOLLOW UP AND PAIN MED REVIEW Allergies bee pollen Allergy (Unknown, Verified 08/05/24 10:16) Unknown house dust mite Allergy (Unknown, Verified 08/05/24 10:16) Unknown adhesive tape Adverse Reaction (Intermediate, Verified 08/05/24 10:16) Rash Medication List - Last Reconciled 08/05/24 by Allison Ham PA-C albuterol sulfate 90 mcg/actuation 2 puffs PO Q6H PRN amlodipine 10 mg PO DAILY cholecalciferol (vitamin D3) 50 mcg PO DAILY fluticasone furoate-vilanterol 200-25 mcg/dose (Breo Ellipta) 1 ea inhalation DAILY fluticasone propionate 50 mcg/actuation 1 spray intranasal BID ipratropium bromide 2 sprays intranasal Q12H losartan 50 mg PO DAILY metoprolol succinate ER 50 mg See Protocol PO DAILY 90 days morphine ER 10 mg PO Q12H 28 days oxycodone 5 mg PO Q8H PRN 28 days pantoprazole 40 mg PO DAILY@0630 rivaroxaban (Xarelto) 20 mg PO QPM 90 days romosozumab-aqqg (Evenity) 210 mg (2.34 mL) subcut .q month 12 months sertraline 50 mg PO BEDTIME trazodone 100 mg PO BEDTIME vibegron (Gemtesa) 75 mg PO DAILY walker use daily As directed walker A rolling walker with seat use daily As directed Tobacco use date assessed: 01/29/24 Dental Screening Dental Screen Date: 01/29/24 HPI pain meds/htn HPI Details Patient is an 88-year-old female who presents today for a follow up. She has a significant past medical history of hypertension, CKD, GERD, chronic pain disorder, s/p laminectomy syndrome, mood disorder, urge incontinence and AFib. She is accompanied today by her daughter on the phone. CV: bp today is 140/70. She is currently on amlodipine 10 mg, losartan 50 mg, metoprolol 50 mg. Compliant with Xarelto. Follows with cardiology. Bps at home wnl. Denies any chest pain, shortness a breath or palpitations. She does complain today of lower leg edema that comes and goes. She states that some days her legs look normal and then other days they are not. This has been going on for quite some time. No weight fluctuations. She does try to wear compression stockings but sometimes they are uncomfortable so she does not wear them. Uro: On CT of the abdomen and pelvis that did show a possible complex cyst on the right kidney. No known history of this. She has been seen by Urology in his on [place] for her overactive bladder. States that her last appointment with her urologist was just a telephone visit. She states that they are not managing or addressing this cyst at all. She thinks that her urologist is a uro chief supply chain officer. Back when this was diagnosed it was in the hospital in December when she was seen for pyelonephritis/sepsis. She did have an ultrasound in January and is overdue by a month for a repeat ultrasound. PULM: She does have a hx of COPD. Musculoskeletal: She saw Dr. Lopez for her SI joint injection and it has helped. She states that he is going to do injections in the right knee. She is going to PT for her neck. She has been using Tylenol and oxycodone as prescribed. It does take the edge off But she has a lot of chronic and breakthrough pain. She is not a surgical candidate. At our last visit I trialed her on morphine extended release which she states she never picked this up because it was not covered. she tried the Xtampza ER initially but made her too tired. Today she tells me that she has been taking the Xtampza nightly for the last few weeks and has had some improvement but does not feel tired with the medication. She is wondering if we could try this again as twice a day dosing. Most of her pain is across her low back and it is worse when she lays down at night. She states it feels like there is a pin that moved from her previous surgery. -Seeing back specialist in [place] Dr. Kc -She is also seeing Dr. Lopez from physiatry. Psych: She has been on Zoloft 50 mg and trazodone 100 mg for some time and feels well-controlled with this. Daughter feels that the Zoloft could be a little stronger for the anxiety. GI: She states that she does not go for any routine screening tests. She does follow with a audit associate who has offered her a colonoscopy every year but she declines it. She follows for her pantoprazole. Endo: Following with endocrinology for her osteoporosis. She has a hx of osteoporosis and states that her mother had severe osteoporosis. She is lifting weights again. She is doing bone and balance . She was on vitamin D and calcium and plans to start evenity next week. She is following with Dr. Lopez. [facility] Medical History (Updated 08/05/24 @ 10:56 by Allison Ham PA-C) Generalized anxiety disorder Insomnia Major depression, recurrent, chronic Arthritis High blood cholesterol COPD (chronic obstructive pulmonary disease) Urge incontinence Joint pain Chronic back pain HTN (hypertension) Bleeding hemorrhoid Back pain with history of spinal surgery Surgical History History of back surgery History of surgery Family History Father Thrombosis Mother Diabetes Heart rate problem Social History Household Members: None Housing: Apartment Do you presently have visiting nurse or other home services: Yes ([employer] for housekeeping 2 times per week) Patient Tobacco Use Status: Former Tobacco user Tobacco use type: Cigarette Cigarettes Per Day: 15 Years Smoked: 10 e-Cigarette/Vaping Use: Never Used Second Hand Smoke Exposure: No Substance Use Type: Painkillers service: No Current occupational status: retired Cognitive needs: No Hearing needs: Yes (hearing aids) Vision needs: No Questionnaire Thrive Questionnaire Date Thrive assessed: 07/29/24 I am a: Patient What is your living situation today?: I have a steady place to live THRIVE Score: 0 RAYNE-7 AMB Questionnaire RAYNE-7 Date RAYNE - 7 assessed: 01/29/24 Source: Developed by Drs. Rommel Olivares, Kaylee Fabian, Al Ny and colleagues, with an educational ken from [employer]. Physical exam (Primary Care) Vital Signs: Last Vital Signs Temp 98.0 F 08/05/24 10:20 Pulse 75 08/05/24 10:20 Resp 16 08/05/24 10:20 BP 140/70 H 08/05/24 10:20 Pulse Ox 97 08/05/24 10:20 Oxygen Delivery Method Room Air 08/05/24 10:20 BMI result Body Mass Index 37.1 Tobacco/Smoking Status: Tobacco use Status Tobacco use date assessed 01/29/24 08/05/24 10:15 Patient Tobacco Use Status Former Tobacco user 08/05/24 10:15 Tobacco use type Cigarette 08/05/24 10:15 e-Cigarette/Vaping Use Never Used 08/05/24 10:15 Thrive Assessment: Date of Thrive Assessment Date Thrive assessed 07/29/24 08/05/24 10:15 Const Orientation/consciousness: patient oriented x3 HENMT Ears: hearing grossly normal bilaterally Neck Thyroid: Thyroid normal Lymphatic: no lymphadenopathy noted Resp Auscultation: clear to auscultation bilaterally Cardio Rate: regular rate Rhythm: regular rhythm Heart sounds: S1 normal heart sound present and S2 normal heart sound present GI Inspection: Yes normal to inspection Palpation (GI): Soft to palpation and Other GI palpation findings present (nontender, no cva tenderness) Auscultation: normoactive bowel sounds Rectal Exam - Female: deferred Skin General skin exam: no rashes or lesions noted Neuro General: patient oriented x3, gait normal and no focal motor deficits Extrem Other: No calf tenderness noted. There is 2+ pitting edema however the bilateral lower legs. Coding Level of Care Code Est Pt Level 4 (51452) Complex EM visit Add On G2211 Diagnoses Kidney lesion, craig, right N28.9 Primary hypertension I10 Hypertension type: primary hypertension Failed back syndrome, lumbar M96.1 Paroxysmal A-fib I48.0 Lower leg edema R60.0 Assessment & Plan Assessment & Plan (1) Kidney lesion, craig, right: Code(s): N28.9 - Disorder of kidney and ureter, unspecified Category: Medical Plan: Urgent ultrasound ordered. Referral to Urology. Labs ordered. (2) HTN (hypertension): Code(s): I10 - Essential (primary) hypertension Category: Medical Qualifiers: Hypertension type: primary hypertension Qualified Code(s): I10 - Essential (primary) hypertension Plan: Reduce amlodipine. Start Lasix for 1 week and then use if needed for the lower leg swelling. Labs ordered. Return in 1 month to have blood pressure rechecked (3) Failed back syndrome, lumbar: Code(s): M96.1 - Postlaminectomy syndrome, not elsewhere classified Category: Medical Plan: We will treat with Xtampza. We discussed using oxycodone only as needed for breakthrough pain. She does have Narcan at home. Again reviewed the risks and benefits and adverse effects of this medication. (4) Paroxysmal A-fib: Code(s): I48.0 - Paroxysmal atrial fibrillation Category: Medical Plan: She is currently anticoagulated. Currently well-controlled with the beta-katharine. No signs or symptoms of this. Follows with Cardiology. (5) Lower leg edema: Code(s): R60.0 - Localized edema Category: Medical Plan: Labs, ultrasound, reduce amlodipine. Follow up. Orders: Orders US renal RT Today N28.9 - Disorder of kidney and ureter, unspecified US venous duplex LE BI Today I48.0 - Paroxysmal atrial fibrillation, R60.0 - Localized edema Comprehensive Met. Panel Today I10 - Essential (primary) hypertension, I48.0 - Paroxysmal atrial fibrillation, N28.9 - Disorder of kidney and ureter, unspecified, R60.0 - Localized edema Complete Blood Count Auto Diff Today I10 - Essential (primary) hypertension, I48.0 - Paroxysmal atrial fibrillation, N28.9 - Disorder of kidney and ureter, unspecified, R60.0 - Localized edema TSH reflex Free T4 Today I10 - Essential (primary) hypertension, I48.0 - Paroxysmal atrial fibrillation, N28.9 - Disorder of kidney and ureter, unspecified, R60.0 - Localized edema B Type Natriuretic Peptide Today I10 - Essential (primary) hypertension, I48.0 - Paroxysmal atrial fibrillation, N28.9 - Disorder of kidney and ureter, unspecified, R60.0 - Localized edema UA CC w/rflx Micro + Cult Today N28.9 - Disorder of kidney and ureter, unspecified, Z13.220 - Encounter for screening for lipoid disorders Referrals Urology Referral N28.9 - Disorder of kidney and ureter, unspecified Medications: New furosemide 20 mg PO QAM 90 tabs 0RF oxycodone myristate CR-ER (Xtampza ER) must administer with a meal/food; Partial Fill upon patient request. 9 mg PO Q12H 56 caps 0RF 28 days amlodipine 5 mg PO DAILY 90 tabs 0RF Discontinued amlodipine Discontinued Reason: Doctor's Order 10 mg PO DAILY 90 tabs 3RF morphine ER Partial Fill upon patient request. Discontinued Reason: Doctor's Order 10 mg PO Q12H 28 days 56 caps 0RF G89.4 - Chronic pain syndrome, M96.1 - Postlaminectomy syndrome, not elsewhere classified Patient Instructions: check labs update kidney ultrasound- they will call to book this i put in a new referral to urology for the kidney cyst you are going to follow up with the back specialists i am putting you on xtampza- make sure you have narcan at home you are only using oxycodone NEEDED for breakthrough pain I reduced amlodipine to 5 mg daily (due to lower leg swelling) leg ultrasounds were ordered-they will call schedule I did send in water pills to start taking in the morning. you can use it for 7 days and then as needed. this can lower your potassium so make sure you eat enough potassium rich foods. 1 month follow up
[2024-08-05 10:20] VITALS: BP 140/70; PULSE 75; RESP 16; TEMP 36.7; O2SAT 97; BMI 37.1
--- OUTSIDE RECORDS SUMMARY | 2024-08-05 10:26 | XMS_ITS ---
Author Organization [facility], [facility] Address [address], [place] [id number] Care Team Providers Care Pharmacy Innovation Assistant Name Role Phone SHANDRA MCDONALD Primary Care Provider [phone] REASON FOR VISIT Refills MEDICATIONS Medication SIG [...] Active Encounters Encounter Location Date Provider Diagnosis [address] [id number] 01/22/2024 SHANDRA MCDONALD Sacroiliitis, not elsewhere classified [...] * JACKIE COLLINSOB:[birth year] (88 yo F)Acc No.[id number]:01/22/2024 Patient:??KAY COLLINS :1935?Age:88 Y?Sex:Fe male Phone: Address:[address] , [address] , [place] [address] * Refills?? Refill oxyCODONE HCl Tablet, 5 [...]
--- OUTSIDE RECORDS SUMMARY | 2024-08-05 10:26 | XMS_ITS ---
Author Organization [facility] Address [address] [place] [id number] Care Team Providers Care Slate Cutter Name Role Phone SHANDRA MIDDLETON Primary Care [...] a day for 90 days Active Nystatin 278203 UNIT/GM apply a light dusting to the [...] unspecified type (I48.91) Active confirmed Atrial fibrillation ([id number]) VITAL SIGNS Blood pressure systolic 122 mm Hg 01/22/20 24 Blood pressure diastolic 68 mm Hg 024 Heart Rate 55 /min 01/22/2024 Height 59 in 01/22/2024 Weight 174.6 lbs 01/22/2024 BMI 35.26 kg/m2 01/22/2024 Oximetry 95 % 01/22/2024 Height-cm 149.86 cm 01/22/2024 Weight-kg 79.2 kg 01/22/2024 Encounters Encounter Location Date Provider Diagnosis [address] [id number] 01/22/2024 SHANDRA MIDDLETON Moderate persistent asthma, uncomplicated [...] by hospital team. She was referred to [place] [facility], we encouraged her to make this appointment. Continue with current care plan until this time. She continues to diurese fluid, we will continue to monitor breathing. Provided extensive education to patient and her daughter regarding signs and symptoms that require emergency care 01/22/2024 Other This visit was performed by [employer] student Sumi Jacome RN under the supervision of Shandra Middleton DNP, ART, LAST PICKER-C, MAURY. PLAN OF TREATMENT Treatment Notes Assessment [...] by hospital team. She was referred to [place] [facility], we encouraged her to make this appointment. Continue with current care plan until this time. She continues to diurese fluid, we will continue to monitor breathing. Provided extensive education to patient and her daughter regarding signs and symptoms that require emergency care Other This visit was perfo rmed by [employer] student Sumi Jacome RN under the supervision of Shandra Middleton DNP, ART, LAST PICKER-C, MAURY. Progress Notes * JACKIE COLLINSOB:[birth year] (88 yo F)Acc No.[id number]:01/22/2024 Progress Notes Patient:??DENNISMEKAKAY Provider:??Shandra Middleton DNP :1935?Age:88 Y?Sex:Fe male Date:01/22/2024 Phone: Address:[address] [place] [address], [place] [address] , [place], [id number] Subjective: * Chief Complaints: * ?1. F/u [...] at the ED, she was feeling extremely [id number] and SOB for 2.5 days. At ED [...] Bruise easily, PND - Sinus Infections. * Produce Shipper History:?Last pap smear date??Recent RENEWABLE ENERGY PROJECT MANAGER visit 2021 for overactive bladder w/full [...] drink alcohol?: Yes, Socially (). ?Lives in [place], [place] in elderly complex, alone. * Medications:??Taking [...] MOUTH EVERY DAY NEEDED , Taking Nystatin 215966 UNIT/GM Powder apply a light dusting to [...] by hospital team. She was referred to [place] [facility], we encouraged her to make this appointment. Continue with current care plan until this time. She continues to diurese fluid, we will continue to monitor breathing. Provided extensive education to patient and her daughter regarding signs and symptoms that require emergency care? 4.??Others?? Notes: This visit was performed by [employer] student Sumi Jacome RN under the supervision of Shandra Middleton DNP, CURING ROOM WORKER, LAST PICKER-C, VWCN. ? * Preventive Medicine:?Last CPE: 04/11/2022 DEXA: Colonoscopy: Yes, no longer gets them Endoscopy: No Covid Vac: Yes Flu Vac: Yes PV: Yes Shingles Vac: Yes. * Billing Information: * Visit Code:?? 73477 Office Visit, Est Pt., Level 3. * [...]
--- OUTSIDE RECORDS SUMMARY | 2024-08-05 10:27 | XMS_ITS | Patient Health Record ---
Author Organization [facility], [facility] Address [address], [place] [id number] Care Team Providers Care Museum Specialist Name Role Phone SHANDRA MIDDLETON Primary Care Provider Shelby Johnson Unavailable [phone] ALLERGIES Allergen (clinical drug ingredient) Drug/Non Drug Allergy documented on EMR Reaction Allergy Type Onset Date Status Dust Mites Unknown Allergy Active REASON FOR REFERRAL Reason Please refer to Pain Management at [address] [place] [address] (Radiofrequency for neck) , Diagnosis 1 Bilateral low back p ain, unspecified chronicity, unspecified whether sciatica present (M54.50) Diagnosis 2 Osteoarthritis of hi p, unspecified (M16.9) Diagnosis 3 Osteoarthritis of marco th knees, 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) Referral Organization [facility] Referring Provider First Name SHANDRA Referring Provider Last Name HARRY Referring Provider Speciality Nurse Prac titioner Referred Organization [facility] Referred Address [address], [id number], Referred Provider Specialty Pain Medicin e General Notes ADAL VARELA 0 09/03/2023 10:05:37 AM >demographics, referral and office note faxed to [facility] [phone], ADAL VARELA 09/05/2023 11:02:09 AM >demographics, updated referral and office note faxed to pain management at [address] [place] [address] Referral Priority Routine MEDICATIONS Medication SIG (Take, [...] a day for 90 days Active Nystatin 606372 UNIT/GM apply a light dusting to the [...] (primary) hypertension (I10) Active confirmed Essential hypertension (49444630) Problem Moderate persistent asthma, uncomplicated (J45.40) Active confirmed Uncomplicated moderate persistent asthma (700070240) Problem Osteoarthritis of hip, unspecified (M16.9) Active confirmed Osteoarthritis of hip (015099869) Problem Sacroiliitis, not elsewhere classified (M46.1) Active confirmed Solitary sacroiliitis (456032061) Problem Overactive bladder (N32.81) Active confirmed Overactive bladder (452086172) Problem 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) Active confirmed Postmenopa usal atrophic vaginitis (49669867) Problem Atrial fibrillation, unspecified type (I48.91) Active confirmed Atrial fibrillation (51495612) VITAL SIGNS Heart Rate 55 /min 01/22/2024 Temperature 98.4 degrees Fahrenheit 12/11/2023 Oximetry 95 % 01/22/2024 Height-cm 149.86 cm 01/22/2024 Blood pressure diastolic 68 mm Hg 01/22/2024 Weight-kg 79.2 kg 01/22/2024 Height 59 in 01/22/2024 Blood pressure systolic 122 mm Hg 01/22/2024 Weight 174.6 lbs 01/22/2024 BMI 35.26 kg/m2 01/22/2024 Encounters Encounter Location Date Provider Diagnosis [address] [id number] 08/06/[address] [id number] 01/01/[address] [id number] 01/22/2024 SHANDRA MIDDLETON Moderate persistent asthma, uncomplicated J45.40 ; Overactive bladder N32.81 and Atrial fibrillation, unspecified type I48.[address] [id number] 08/27/2023 SHANDRA MIDDLETON Sacroiliitis, not elsewhere classified M46.1 ; Moderate persistent asthma, uncomplicated J45.40 ; Overactive bladder N32.81 ; Essential (primary) hypertension I10 ; Other localized visual field defect, unspecified eye H53.459 and Depression, unspecified F32.A [address] [id number] 10/29/2023 SHANDRA MIDDLETON Cervicalgia M54.2 ; Sacroiliitis, not elsewhere classified M46.1 ; Overactive bladder N32.81 and Moderate persistent asthma, uncomplicated J45.[address] [id number] 12/03/2023 Shelby Alex Skin rash R21 [facility] [address], [place] [id number] 12/11/2023 Shelby Johnson Shortness of breath R06.02 ; Wheezing R06.2 ; Acute cough R05.1 and Pneumonia of right lung due to infectious organism, unspecified part of lung J18.[address] [id number] 12/24/2023 SHANDRA MIDDLETON Sacroiliitis, not elsewhere classified M46.1 ; Depression, unspecified F32.A ; Moderate persistent asthma, uncomplicated J45.40 and Essential (primary) hypertension I10 [address] [id number] 08/07/2023 SHANDRA MIDDLETON Sacroiliitis, not elsewhere classified M46.[address] [id number] 09/02/2023 SHANDRA MIDDLETON Bilateral low back pain, unspecified chronicity, unspecified whether sciatica present M54.50 ; Osteoarthritis of hip, unspecified M16.9 and Osteoarthritis of both knees, unspecified osteoarthritis type M17.[address] [id number] 09/17/[address] [id number] 10/11/[address] [id number] 10/21/2023 SHANDRA MIDDLETON Sacroiliitis, not elsewhere classified M46.[address] [id number] 11/29/2023 SHANDRA MIDDLETON Sacroiliitis, not elsewhere classified M46.[address] [id number] 12/12/[address] [id number] 01/22/2024 SHANDRA MIDDLETON Sacroiliitis, not elsewhere classified [...] decongestant/expe ctorant 12/11/2023 Wheezing (ICD-10 - R06.2) 12/24/2023 Sacroiliitis, [...] and coordination of care. Gil Irizarry BSN, RIGGER student saw the patient and formulated the [...] by hospital team. She was referred to [place] cardiology, we encouraged her to make this [...] unspecified eye (ICD-10 - H53.459) Recently saw opthamology-faile d her peripheral vision test on left only, was referred to specialist 08/27/2023 Depression, unspecified (ICD-10 - F32.A) 01/22/2024 Other This visit was performed by FIGHTING VEHICLE SYSTEMS MAINTAINER student Sumi Jacome RN under the supervision of Shandra Middleton, ZINA, DEALER ANALYST, FIGHTING VEHICLE SYSTEMS MAINTAINER-C, VWCN. 10/29/2023 Other Total time spen t [...] Medicare [address] [place] [address] [phone] [id number] DILAN COLLINSINE Self - patient is the insured [facility] [address] BRINDA THAKKAR [phone] [id number] DILAN COLLINSINE Self - patient is the [...]
--- OUTSIDE RECORDS SUMMARY | 2024-08-05 10:27 | XMS_ITS | Data Portability ---
Author Organization [place] - [facility], _[facility] Address [address] [place] [address] Assessment Encounter Date Assessment Date Assessment LastModified [...] 143 mm[Hg] 79 mm[Hg] Yun Harrell MD [address] [place] [address], [phone] [place], [place] - [facility] 8 16:35:36 Date Recorded Body temperature Heart rate Respiratory rate Systolic blood pressure Diastolic blood pressure Provider Name and Address Organization Details Last Updated DateTime 8 98.5 [degF] 80 /min 18 /min 125 mm[Hg] 59 mm[Hg] GUILHERME Cazares NP [address] [place], [address] [place] [address] [facility] 8 10:16:59 Date Recorded Body temperature Heart rate Respiratory rate Systolic blood pressure Diastolic blood pressure Provider Name and Address Organization Details Last Updated DateTime 8 99.7 [degF] 68 /min 18 /min 103 mm[Hg] 57 mm[Hg] GUILHERME Cazares NP [address] [place] [address], [phone] [place] [address] [facility] 8 09:45:06 Date Recorded Body temperature Heart rate Systolic blood pressure Diastolic blood pressure Provider Name and Address Organization Details Last Updated DateTime 12/05/2017 97.8 [degF] 80 /min 147 mm[Hg] 78 mm[Hg] GUILHERME HALL NP [address] [place] [address], [phone] [facility] 12/05/2017 10:18:56 Date Recorded Body weight Body temperature Heart rate Oxygen saturation Oxygen saturation in Arterial blood by Pulse oximetry Systolic blood pressure Diastolic blood pressure Provider Name and Address Organization Details Last Updated DateTime 8 97470.5 2 g 97.8 [degF] 72 /min 96 % 96 % 99 mm[Hg] 41 mm[Hg] GUILHERME Cazares NP [address] [place] [address], [address] [place] [address] [facility] 8 09:38:58 Social History Question Answer Notes LastModified by Organizat ion Details LastModified Time Tobacco Smoking Status Former Smoker Yun Harrell MD [address] [place] [address], [phone], [facility] 12/01/2017 16:36:41 What Is Your [...] Diagnosis/Indication Diagnosis SNOMED-CT Code Diagnosis ICD10 Code Diagnosis Note [id number] Yun Harrell MD [facility] [address] [place] [address] 12/01/2017 16:22:36 12/06/2017 14:56:06 Spinal stenosis of lumbar region 25818327 M48.061 s/p decompress ion, pain is controlled on tylenol, dilaudid, fentanyl patch, PT, OT, wound care Essential hypertension 19637923 I10 cont amlodipin, losartan Hyperlipidemia 67546099 E78.5 cont lipitor Gastroesop hageal reflux disease without esophagitis 971402728 K21.9 cont PPI Constipation 97779397 K5 9.00 colace, senna, miralax ,enema if needed Depressive disorder 3548 9007 F32.9 cont zoloft, trazodone [id number] GUILHERME HALL NP [place] [address] [place] [address] 12/02/2017 10:05:52 12/04/2017 11:11:45 Spinal stenosis of lumbar region 65610991 M48.061 s/p decompress ion, pain is controlled on tylenol, dilaudid, fentanyl patch, cont with PT and OT here; incision is covered with steri stips and DPD Essential hypertension 37913162 I10 cont amlodipin, losartango od BP control Hyperlipidemia 12371314 E78.5 cont lipitor Gastroesop hageal reflux disease without esophagitis 719862276 K21.9 cont PPI Constipation 58260061 K5 9.00 good BM; cont current med regiment Depressive disorder 3548 9007 F32.9 cont zoloft, trazodone [id number] GUILHERME HALL NP [facility] [address] [place] [address] 12/04/2017 09:44:05 12/06/2017 14:28:20 Spinal stenosis of lumbar region 30563163 M48.061 s/p decompress ion, pain is controlled on tylenol, dilaudid, fentanyl patch, cont with PT and OT here; incision is covered with steri stips. Essential hypertension 10452940 I10 cont amlodipin, losartango od BP control Hyperlipidemia 48921382 E78.5 cont lipitor Gastroesop hageal reflux disease without esophagitis 043972146 K21.9 cont PPI Constipation 01989587 K5 9.00 good BM; cont current med regiment Depressive disorder 8264 9007 F32.9 cont zoloft, trazodone Leukocytosis 042554128 D 72.829 wbc 12; pt has a fever; will get UA [id number] GUILHERME HALL NP [facility] [address] [place] [address] 12/05/2017 10:17:51 12/10/2017 16:37:53 Spinal stenosis of lumbar region 92707800 M48.061 s/p decompress ion, pain is controlled on tylenol, dilaudid, fentanyl patch, cont with PT and OT here; incision is covered with steri stips.pt jose be d/c home in a few days Leukocytosis 225366713 D 72.829 UA neg, afebrile; cbc pending from today Essential hypertension 45084203 I10 cont amlodipine , losartango od BP control Constipation 42054549 K5 9.00 good BM; cont current med regiment [id number] GUILHREME HALL NP [facility] [address] [place] [address] 12/06/2017 09:34:53 12/13/2017 12:45:01 Spinal stenosis of lumbar region 23221771 M48.061 s/p decompress ion, pain is controlled on tylenol, dilaudid, fentanyl patch,will give rx for fentalyn pathc #4 to go home withMass pat checkedf/u wit [place] in 8 weeks Essential hypertension 43512723 I10 cont amlodipin, losartan Hyperlipidemia 86492500 E78.5 cont lipitor Gastroesop hageal reflux disease without esophagitis 727456035 K21.9 cont PPI Constipation 80202777 K5 9.00 colace, senna, miralax ,enema if needed Depressive disorder 7404 9007 F32.9 cont zoloft, trazodone Health Concerns Section Related Observation LastModified by Organization Detai ls LastModified Time None Recorded Concern Status LastModified by Organization Details LastModified Time None Recorded Advance Directives Directive None Recorded Payers Encounter Date Sequence Insurance Name Policy Number Policy Blanco Covered Member ID Blanco Member ID Guarantor Name 12/01/2017 1 [place] [employer] Brenda M Andras [id number] Brenda Andras 12/02/2017 1 [place] [employer] Brenda M Andras [id number] Brenda Andras 12/04/2017 1 [place] [facility] Brenda M Andras [id number] Brenda Andras 12/04/2017 2 [facility] - MEDICARE ENHANCE (INDEMNITY PLAN) Brenda Andras [id number] Brenda Andras 12/05/2017 1 [place] [employer] Brenda M Andras [id number] Brenda Andras 12/05/2017 2 [facility] - MEDICARE ENHANCE (INDEMNITY PLAN) Brenda Andras [id number] Brenda Andras 12/06/2017 1 [place] [facility] Brenda M Andras [id number] Brenda Andras 12/06/2017 2 [facility] - MEDICARE ENHANCE (INDEMNITY PLAN) Brenda Andras [id number] Brenda Andras Notes Date Note Type Note Provider Name and Address Organization Details Recorded Time 12/01/2017 text/html seen for admission- came from [facility] where pt had L3-S1 decompression.Pt tolerated procedure well, pain is controlled on current fentanyl patch and dilaudidPt came to for further care Yun Harrell MD [address] [place], [address], [facility] 12/01/2017 16:43:01 12/02/2017 text/html seeing pt today for f/u; continues to work with therapy here, making progress. Pt came from [facility] where pt had L3-S1 decompression.Pt tolerated procedure well, pain is controlled on current fentanyl patch and dilaudid. GUILHERME HALL NP [address] [place], [address], [facility] 12/02/2017 10:21:10 12/04/2017 text/html seeing pt today for f/u; continues to work with therapy here, making progress. Pt came from [facility] where pt had L3-S1 decompression.Pt tolerated procedure well, pain is controlled on current fentanyl patch and dilaudid. GUILHERME HALL NP [address] [place], [address], [facility] 12/04/2017 12:59:51 12/05/2017 text/html seeing pt today for f/u; continues to work with therapy here, making progress.Ua was obtained yesterday; pt had elevated wbc Pt came from [facility] where pt had L3-S1 decompression.Pt tolerated procedure well, pain is controlled on current fentanyl patch and dilaudid. GUILHERME HALL NP [address] [place], [address], [facility] 12/07/2017 15:19:06 12/06/2017 text/html seeing pt today for d/c; pt has done well with therapy here, made progress, will be d/c home tomorrow. GUILHERME HALL NP [address] [place], [address], [facility] 12/08/2017 11:15:02 OBGyn Episode No OBEpisode recorded.
--- OUTSIDE RECORDS SUMMARY | 2024-08-05 10:27 | XMS_ITS ---
Author Organization [facility] Address [address] [place] [address] Care Team Providers Care Cascara Bark Cutter Name Role Phone Ling Middleton DNP Primary Care Provider Joanne Reeves Jr, Elbert Unavailable [phone] REASON FOR VISIT pantoprazole refill MEDICATIONS Medication SIG (Take, Route, Frequency, Duration) Notes Start Date End Date Status Pantoprazole Sodium 40 MG TAKE 1 TABLET BY MOUTH EVERY DAY for 90 days Active Encounters Encounter Location Date Provider Diagnosis [facility] [address] [place] [address] 03/26/2023 Elbert Reeves Jr PLAN OF TREATMENT Medication Medication Name Sig Start Date Stop Date Notes Pantoprazole Sodium 40 MG TAKE 1 TABLET BY MOUTH EVERY DAY for 90 days
--- OUTSIDE RECORDS SUMMARY | 2024-08-05 10:27 | XMS_ITS ---
Author Organization [facility] Address [address] [place] [phone] Care Team Providers Care Associate Financial Representative Name Role Phone SHANDRA MIDDLETON Primary Care Provider REASON FOR VISIT f/u meds, pain Encounters Encounter Location Date Provider Diagnosis [address] [id number] 01/01/2024 SHANDRA MIDDLETON PLAN OF TREATMENT No Information Progress Notes * JACKIE COLLINSOB:[birth year] (88 yo F)Acc No.[id number]:01/01/2024 Progress Notes Patient:??KAY COLLINS Provider:??Shandra Middleton DNP :1935?Age:88 Y?Sex:Fe male Date:01/01/2024 Phone: Address:[address] [place] [address], [address] , [place], [phone] Subjective: * Chief Complaints: * ?1. F/u meds, pain. * Medical History:?? Objective: Assessment: Plan: * Treatment: * Billing Information: * Visit Code:?? * Procedure Codes:?? * Sign off status: Pending * Provider:??Shandra Middleton DNP Date:??0 01/01/2024
--- OUTSIDE RECORDS SUMMARY | 2024-08-05 10:27 | XMS_ITS | Patient Health Record ---
Author Organization [facility] Address [address] [place] [address] Care Team Providers Care C S S Representative Name Role Phone Ling Middleton DNP Primary [...] a day for 30 day(s) Active Ipratropium [place] 0.06 % 2 sprays in e ach nostril Nasally Three times a day for 4 day(s) Active Amoxicillin 500 MG 1 capsule Orally NEEDED FOR DENTIST Active Calcium 500 MG 1 tablet Orally Once a day Active Tramadol & Dietary Manage Prod Active Vitamin D3 Ultra Potency 41814 UNIT 1 tablet Orally as directed Active [...] Notes Problem Rectal bleeding (K62.5) Active confirmed 11407798 Problem Gastro-esophagea l reflux disease without esophagitis (K21.9) Active confirmed 073121967 Problem Cough (R05) Active confirmed 38730904 Problem Urinary incontinence, unspecified type (R32) Active confirmed 337171632 PLAN OF TREATMENT Pending Test Test Name Order Date XR GI SERIES 07/14/2015 Insurance Providers Payer Name Payer Address Payer Phone Subscriber Number Group Number Insured Name Patient Relationship to Insured Coverage Start Date Coverage End Date MEDICARE OF [place] [address] [place] [address] [id number] ANDKAY AVILES Self - patient is the insured [employer] [address] BRINDA THAKKAR [phone] [id number] KAY COLLINS Self - patient is the insured MEDICAL (GENERAL) HISTORY Medical History History ICD Code EGD/colonoscopy 01/03/2006. No evidence of Morse's esophagus. Hyperplastic colon polyp. Seasonal allergic rhinitis hypertension hypercholesterolemia scoliosis arthritis depression Surgical History Surgery Date(Month/Year) Vocal cord polyp 2006 Multiple back and neck surgeries rotator cuff surgery both knee replacement left
== END 2024-08-05 11:03 | disposition home or self-care (01) ==
PROVIDERS: PCP Physician Assistant; Visit Provider Physician Assistant
DX: N28.9 Disorder of kidney and ureter, unspecified (principal); I10 Essential (primary) hypertension; M96.1 Postlaminectomy syndrome, not elsewhere classified; I48.0 Paroxysmal atrial fibrillation; R60.0 Localized edema

== ENCOUNTER 2024-08-05 11:13 | Outpatient (REF) | payer MEDICARE, OTHER, SELFPAY ==
[2024-08-05 14:24] LABS: Appearance Urine Clear; Color Urine Yellow; Glucose Urine UA Negative (Negative); Leukocyte Esterase Urine Negative (Negative); Nitrite Urine Negative (Negative); PH 6.5 (5.0-9.0); Specific Gravity - Urine 1.015 (1.005-1.025); Urine Blood Negative (Negative); Urine Ketones Negative (Negative); Urine Protein Negative (Neg-Trace)
[2024-08-05 14:28] LABS: MANUAL DIFF FLAG NO
[2024-08-05 14:38] LABS: Basophils Absolute Auto 0.1 X10*3/uL (0.0-0.2); Basophils Percent Auto 0.7 % (0-2); Eosinophils Absolute Auto 0.3 X10*3/uL (0.0-0.4); Eosinophils Percent Auto 2.3 % (0-4); Hematocrit 41.3 % (37.0-47.0); Hemoglobin 13.4 g/dl (12.0-16.0); Imm Gran Abs Auto 0.06 X10*3/uL (0.00-0.03); Imm Gran Pct Auto 0.6 % (0.0-0.4); Lymphocytes Absolute Auto 1.7 X10*3/uL (1.2-4.9); Mean Corpuscular HGB Conc 32.4 g/dl (31.0-35.0); Mean Corpuscular Volume 95.6 fL (80.0-98.0); Mean Platelet Volume 10.6 fL (9.4-12.3); Monocytes Absolute Auto 0.8 X10*3/uL (0.1-1.2); Monocytes Percent Auto 7.1 % (2-11); Neutrophils Absolute Auto 7.9 x10*3/uL (2.0-8.3); Neutrophils Percent Auto 73.3 % (45-73); Platelet Count 395 X10*3/uL (160-400); Red Blood Count 4.32 X10*6/uL (4.20-5.50); Red Cell Distribution Width 13.6 % (11.0-16.0); White Blood Count 10.8 X10*3/uL (4.8-10.8)
[2024-08-05 15:05] LABS: Alanine Aminotransferase 11 U/L (0-31); Albumin Level 4.2 g/dL (3.5-5.0); Alkaline Phosphatase 99 U/L (39-117); Anion Gap 14 (12-20); Aspartate Amino Transferase 25 U/L (5-31); Bilirubin Total 0.5 mg/dL (0.0-1.0); Blood Urea Nitrogen 15 mg/dL (9-16); Calcium 9.7 mg/dL (8.4-10.2); Carbon Dioxide 27 mmol/L (22-29); Chloride 106 mmol/L (96-108); Cholesterol 148 mg/dL (<200); Estimated Glomerular Filt Rate > 60; Glucose Random 96 mg/dL (60-115); HDL Cholesterol 63 mg/dL (>40); LDL Cholesterol Calculated 61 mg/dL (<100); Sodium 143 mmol/L (135-145); Total Protein 7.4 g/dL (6.5-8.0); Triglycerides 121 mg/dL (<150)
[2024-08-05 15:08] LABS: B Type Natriuretic Peptide 73 pg/mL (<100)
[2024-08-05 15:14] LABS: TSH reflex Free T4 1.43 uIU/mL (0.32-4.0)
== END 2024-08-05 11:14 | disposition home or self-care (01) ==
LOC: HO.WFDLDS 11:13
PROVIDERS: Referring Provider Internal Medicine; Visit Provider Physician Assistant
DX: N28.9 Disorder of kidney and ureter, unspecified (principal); I10 Essential (primary) hypertension; M96.1 Postlaminectomy syndrome, not elsewhere classified; I48.0 Paroxysmal atrial fibrillation; R60.0 Localized edema; E78.00 Pure hypercholesterolemia, unspecified; R26.89 Other abnormalities of gait and mobility; Z79.01 Long term (current) use of anticoagulants; Z79.899 Other long term (current) drug therapy; Z13.220 Encounter for screening for lipoid disorders
CPT/HCPCS: 36415; 80053; 80061; 81003; 83880; 84443; 85025; 99212

== ENCOUNTER 2024-08-06 12:36 | Outpatient (AMB) | payer MEDICARE, OTHER, SELFPAY ==
[2024-08-06 12:47] VITALS: BP 138/68; PULSE 78; BMI 36.4
--- NOTE | 2024-08-06 12:47 | A.OFFVIS_ITS ---
Vital Signs 08/06/24 12:47 Height 4 ft 10 in Weight 174 lb 2.643 oz BMI 36.4 BP 138/68 Blood Pressure Location Lt brachial Position Sitting Pulse 78 Pulse Source Pulse Oximeter Intake Visit Reasons: 3mth f/up r/s 05/06 Allergies bee pollen Allergy (Unknown, Verified 08/05/24 10:16) Unknown house dust mite Allergy (Unknown, Verified 08/05/24 10:16) Unknown adhesive tape Adverse Reaction (Intermediate, Verified 08/05/24 10:16) Rash Medication List - Last Reconciled 08/06/24 by Carlito Collier MD albuterol sulfate 90 mcg/actuation 2 puffs PO Q6H PRN amlodipine 5 mg PO DAILY cholecalciferol (vitamin D3) 50 mcg PO DAILY fluticasone furoate-vilanterol 200-25 mcg/dose (Breo Ellipta) 1 ea inhalation DAILY fluticasone propionate 50 mcg/actuation 1 spray intranasal BID furosemide 20 mg PO QAM ipratropium bromide 2 sprays intranasal Q12H losartan 50 mg PO DAILY metoprolol succinate ER 50 mg See Protocol PO DAILY 90 days oxycodone 5 mg PO Q8H PRN 28 days oxycodone myristate CR-ER (Xtampza ER) 9 mg PO Q12H 28 days pantoprazole 40 mg PO DAILY@0630 rivaroxaban (Xarelto) 20 mg PO QPM 90 days romosozumab-aqqg (Evenity) 210 mg (2.34 mL) subcut .q month 12 months sertraline 50 mg PO BEDTIME trazodone 100 mg PO BEDTIME vibegron (Gemtesa) 75 mg PO DAILY walker A rolling walker with seat use daily As directed HPI Comments Details: Brenda returns for follow-up. In 2023, admitted to the hospital for acute pyelonephritis/sepsis. In that context, she was diagnosed with atrial fibrillation and rapid rate. She received IV beta-blockers and then converted to sinus rhythm. Various symptoms including nonspecific tiredness, fatigue, aches and pains but nothing clear-cut cardiac. [facility] Medical History (Updated 08/06/24 @ 13:00 by Carlito Collier MD) Generalized anxiety disorder Insomnia Major depression, recurrent, chronic Arthritis High blood cholesterol COPD (chronic obstructive pulmonary disease) Urge incontinence Joint pain Chronic back pain HTN (hypertension) Bleeding hemorrhoid Back pain with history of spinal surgery Surgical History History of back surgery History of surgery Family History Father Thrombosis Mother Diabetes Heart rate problem Social History Household Members: None Housing: Apartment Do you presently have visiting nurse or other home services: Yes ([employer] for housekeeping 2 times per week) Patient Tobacco Use Status: Former Tobacco user Tobacco use type: Cigarette Cigarettes Per Day: 15 Years Smoked: 10 e-Cigarette/Vaping Use: Never Used Second Hand Smoke Exposure: No Substance Use Type: Painkillers service: No Current occupational status: retired Cognitive needs: No Hearing needs: Yes (hearing aids) Vision needs: No Review of Systems Const Denies weakness ENT Denies dizziness Card Denies chest pain, Denies chest pain with activity, Denies syncope, Denies rapid heart rate, Denies pedal edema, Denies edema, Denies leg edema, Denies lightheadedness, Denies palpitations, Denies dyspnea, Denies dyspnea on exertion and Denies orthopnea Resp Denies cough, Denies dyspnea and Denies dyspnea on exertion GI Denies hematochezia and Denies change in stool character Musc Denies abnormal gait, Denies muscle cramps, Denies muscle weakness, Denies numbness, Denies radiating pain into limb and Denies tingling Neuro Denies abnormal gait, Denies dizziness, Denies syncope, Denies numbness, Denies tingling and Denies weakness Endo Denies palpitations Physical Exam Vital Signs: Last Vital Signs Pulse 78 08/06/24 12:47 BP 138/68 08/06/24 12:47 BMI result Body Mass Index 36.4 Const General: comfortable and no acute distress Orientation/consciousness: patient oriented x3 HEENT Other: Unremarkable Head: Yes normal to inspection Neck Neck: Yes normal visual inspection Chest Chest palpation & inspection: normal inspection of the chest Resp Auscultation: clear to auscultation bilaterally Cardio Palpation: normal PMI Heart sounds: S1 normal heart sound present, S2 normal heart sound present, no gallops, no murmurs and no rubs GI Palpation (GI): Soft to palpation Back/Spine/Pelvis Other: unremarkable Skin General skin exam: no rashes or lesions noted Neuro General: patient oriented x3 Extrem Other: 1+ swelling bilateral General: Yes normal to inspection Psych Mental Status: mental status grossly normal Assessment & Plan Assessment & Plan (1) Paroxysmal A-fib: Code(s): I48.0 - Paroxysmal atrial fibrillation Category: Medical Plan: Continue beta-blockers. She is complaining of tiredness, but seems nonspecific. We discussed about stopping Metoprolol and trying something else, but she would like to just leave it as it is. Continue anticoagulation. By auscultation, she is in sinus rhythm. Echocardiogram with LVEF of 60-65%. Moderate septal hypertrophy. Otherwise unremarkable. (2) HTN (hypertension): Code(s): I10 - Essential (primary) hypertension Category: Medical Qualifiers: Hypertension type: primary hypertension Qualified Code(s): I10 - Essential (primary) hypertension Plan: Remains on losartan/amlodipine. Because of leg swelling, PCP had apparently cut back on the dose of amlodipine that seems appropriate. No changes made today. (3) Leg swelling: Code(s): M79.89 - Other specified soft tissue disorders Category: Medical Plan: Probably dependent edema. Amlodipine fixed also possible. Do not believe it is heart failure. Agree with cutting back on the amlodipine dosing. May try like elevation/compression stockings. She has a supply of Lasix from PCP but use only sparingly. Plan Discussed with daughter over the phone. Coding Level of Care Code Est Pt Level 4 (70526) Diagnoses Paroxysmal A-fib I48.0 Primary hypertension I10 Hypertension type: primary hypertension Leg swelling M79.89
== END 2024-08-06 13:11 | disposition home or self-care (01) ==
PROVIDERS: PCP Physician Assistant; Visit Provider Internal Medicine
DX: I48.0 Paroxysmal atrial fibrillation (principal); I10 Essential (primary) hypertension; M79.89 Other specified soft tissue disorders
CPT/HCPCS: 99214

== ENCOUNTER → 2024-08-06 12:36 | Outpatient (BNVA) | payer MEDICARE, OTHER, SELFPAY | PROVIDERS: PCP Physician Assistant; Visit Provider Internal Medicine | DX: I48.0 Paroxysmal atrial fibrillation (principal); I10 Essential (primary) hypertension; M79.89 Other specified soft tissue disorders | CPT/HCPCS: 99212 ==

== ENCOUNTER 2024-08-10 13:21 | Outpatient (AMB) | payer MEDICARE, OTHER, SELFPAY ==
--- NOTE | 2024-08-10 14:28 | AM.OFFVISNUR ---
Intake Visit Reasons: Evenity #1 Allergies bee pollen Allergy (Unknown, Verified 08/05/24 10:16) Unknown house dust mite Allergy (Unknown, Verified 08/05/24 10:16) Unknown adhesive tape Adverse Reaction (Intermediate, Verified 08/05/24 10:16) Rash Office Meds romosozumab-aqqg 210 mg/2.34 mL(105 mg/1.17 mL x2)subcutaneous syringe Performing Provider: Romeml Lopez MD Performing Location: [facility] Endocrinology Administered by: Rosalinda Hines RN on 08/10/24 14:29 Dose Route Admin Location Dispensed Lot Number Expiration Date NDC Personalized Living Manager 210 mg subcut bilateral upper arms 2.34 mL [id number] 10/26/26 57640-545-64 AMGEN Comments: Consent form signed by patient. Pt advised of signs and symptoms to watch out for following evenity injection, such as redness, warmth or swelling. Pt advised to call the office if this were to occur. Pt aware to inform her dentist she is on the medication. Pt aware this is two monthly injections given for 12 months. Pt tolerated evenity injections and was observd 15 minutes following injections without incident. Pt scheduled for next appointment in 4 weeks. Assessment & Plan Assessment & Plan Orders: Orders AMB Romosozumab Injection Patient Supplied Today M81.0 - Age-related osteoporosis without current pathological fracture Medications: New romosozumab-aqqg 210 mg (2.34 mL) subcut ONCE 2.34 mL 0RF M81.0 - Age-related osteoporosis without current pathological fracture
== END 2024-08-10 14:08 | disposition home or self-care (01) ==
PROVIDERS: PCP Physician Assistant
DX: M81.0 Age-related osteoporosis without current pathological fracture (principal)

== ENCOUNTER → 2024-08-10 13:21 | Outpatient (BNVA) | payer MEDICARE, OTHER, SELFPAY | PROVIDERS: PCP Physician Assistant | DX: M81.0 Age-related osteoporosis without current pathological fracture (principal) | CPT/HCPCS: 96372; J3111 ==

== ENCOUNTER 2024-08-11 15:52 | Outpatient (REF) | payer OTHER, MEDICARE, SELFPAY ==
--- NOTE | ~2024-08-11 | US_ITS ---
CLINICAL HISTORY: N28.9 - Disorder of kidney and ureter, unspecified US Renal Comparison: US/UT/SR - US RENAL BI - 02/05/24 11:26 EDT Findings: The prior CT is not available for review. Right kidney normal size and echotexture, 10 cm length. 1.6 x 1.3 x 1.3 cm hypoechoic lesion. No hydronephrosis. Normal color Doppler. IMPRESSION: Stable hypoechoic lesion of the right kidney. Ultrasound follow-up in 1 year as indicated. This document has been electronically signed by: Obi Smith MD on 08/11/2024 17:28:09
--- OUTSIDE RECORDS SUMMARY | 2024-08-11 18:02 | XMS_ITS ---
Author Organization [facility] Address [address], [place] [id number] Care Team Providers Care Rim Fire Priming Tool Setter Name Role Phone SHANDRA MCDONALD Primary Care [...] Active Encounters Encounter Location Date Provider Diagnosis [address] [id number] 01/22/2024 SHANDRA MCDONALD Sacroiliitis, not elsewhere classified [...] * JACKIE COLLINSOB:[birth year] (88 yo F)Acc No.[id number]:01/22/2024 Patient:??KAY COLLINS :1935?Age:88 Y?Sex:Fe male Phone: Address:[address] , [address] , [place] [address] * Refills?? Refill oxyCODONE HCl Tablet, 5 [...]
--- OUTSIDE RECORDS SUMMARY | 2024-08-11 18:02 | XMS_ITS | Patient Health Record ---
Author Organization [facility] Address [address], [place] [id number] Care Team Providers Care Hand Decorator Name Role Phone SHANDRA MIDDLETON Primary Care Provider Shelby Johnson Unavailable [phone] ALLERGIES Allergen (clinical drug ingredient) Drug/Non Drug Allergy documented on EMR Reaction Allergy Type Onset Date Status Dust Mites Unknown Allergy Active REASON FOR REFERRAL Reason Please refer to Pain Management at [address] [place] [address] (Radiofrequency for neck) , Diagnosis 1 Bilateral low back p ain, unspecified chronicity, unspecified whether sciatica present (M54.50) Diagnosis 2 Osteoarthritis of hi p, unspecified (M16.9) Diagnosis 3 Osteoarthritis of marco th knees, 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) Referral Organization [facility] Referring Provider First Name SHANDRA Referring Provider Last Name HARRY Referring Provider Speciality Nurse Prac titioner Referred Organization [facility] Referred Address [address], [id number], Referred Provider Specialty Pain Medicin e General Notes ADAL VARELA 0 09/03/2023 10:05:37 AM >demographics, referral and office note faxed to [facility] [phone], ADAL VARELA 09/05/2023 11:02:09 AM >demographics, updated referral and office note faxed to pain management at [address] [place] [address] Referral Priority Routine MEDICATIONS Medication SIG (Take, [...] a day for 90 days Active Nystatin 706426 UNIT/GM apply a light dusting to the [...] (primary) hypertension (I10) Active confirmed Essential hypertension (68279429) Problem Moderate persistent asthma, uncomplicated (J45.40) Active confirmed Uncomplicated moderate persistent asthma (470605396) Problem Osteoarthritis of hip, unspecified (M16.9) Active confirmed Osteoarthritis of hip (686782588) Problem Sacroiliitis, not elsewhere classified (M46.1) Active confirmed Solitary sacroiliitis (670512820) Problem Overactive bladder (N32.81) Active confirmed Overactive bladder (172597984) Problem 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) Active confirmed Postmenopa usal atrophic vaginitis (35837529) Problem Atrial fibrillation, unspecified type (I48.91) Active confirmed Atrial fibrillation (11698417) VITAL SIGNS Heart Rate 55 /min 01/22/2024 Temperature 98.4 degrees Fahrenheit 12/11/2023 Oximetry 95 % 01/22/2024 Height-cm 149.86 cm 01/22/2024 Blood pressure diastolic 68 mm Hg 01/22/2024 Weight-kg 79.2 kg 01/22/2024 Height 59 in 01/22/2024 Blood pressure systolic 122 mm Hg 01/22/2024 Weight 174.6 lbs 01/22/2024 BMI 35.26 kg/m2 01/22/2024 Encounters Encounter Location Date Provider Diagnosis [address] [id number] 01/01/2024 SHANDRA MIDDLETON [address] [id number] 01/22/2024 SHANDRA MIDDLETON Moderate persistent asthma, uncomplicated J45.40 ; Overactive bladder N32.81 and Atrial fibrillation, unspecified type I48.[address] [id number] 08/27/2023 SHANDRA MIDDLETON Sacroiliitis, not elsewhere classified M46.1 ; Moderate persistent asthma, uncomplicated J45.40 ; Overactive bladder N32.81 ; Essential (primary) hypertension I10 ; Other localized visual field defect, unspecified eye H53.459 and Depression, unspecified F32.A [address] [id number] 10/29/2023 SHANDRA MIDDLETON Cervicalgia M54.2 ; Sacroiliitis, not elsewhere classified M46.1 ; Overactive bladder N32.81 and Moderate persistent asthma, uncomplicated J45.[address] [id number] 12/03/2023 Shelby Johnson Skin rash R21 [address] [id number] 12/11/2023 Shelby Johnson Shortness of breath R06.02 ; Wheezing R06.2 ; Acute cough R05.1 and Pneumonia of right lung due to infectious organism, unspecified part of lung J18.[address] [id number] 12/24/2023 SHANDRA MIDDLETON Sacroiliitis, not elsewhere classified M46.1 ; Depression, unspecified F32.A ; Moderate persistent asthma, uncomplicated J45.40 and Essential (primary) hypertension I10 [address] [id number] 09/02/2023 SHANDRA MIDDLETON Bilateral low back pain, unspecified chronicity, unspecified whether sciatica present M54.50 ; Osteoarthritis of hip, unspecified M16.9 and Osteoarthritis of both knees, unspecified osteoarthritis type M17.[address] [id number] 09/17/[address] [id number] 10/11/[address] [id number] 10/21/2023 SHANDRA MIDDLETON Sacroiliitis, not elsewhere classified M46.[address] [id number] 11/29/2023 SHANDRA MIDDLETON Sacroiliitis, not elsewhere classified M46.[address] [id number] 12/12/[address] [id number] 01/22/2024 SHANDRA MIDDLETON Sacroiliitis, not elsewhere classified M46.1 ASSESSMENTS Encounter Date Diagnosis Assessment Notes Treatment Notes Treatment Clinical Notes Section Notes 08/27/2023 Moderate persistent asthma, uncomplicated (ICD-10 - [...] and coordination of care. Gil Irizarry BSN, LICENS[employer]CRAFT MAINTENANCE ENGINEER student saw the patient and formulated the [...] by hospital team. She was referred to [place] cardiology, we encouraged her to make this [...] unspecified eye (ICD-10 - H53.459) Recently saw opthamology-misty rose her peripheral vision test on left only, was referred to specialist 08/27/2023 Depression, unspecified (ICD-10 - F32.A) 01/22/2024 Other This visit was performed by DIRECTOR OF PHYSICAL SECURITY student Sumi Jacome RN under the supervision of Shandra Middleton, ZINA, STATISTICS MANAGER, DIRECTOR OF PHYSICAL SECURITY-C, VWKB. 10/29/2023 Other Total time spen t with [...] Medicare [address] [place] [address] [id number] KAY COLLINS Self - patient is the insured [facility] [address] BRINDA THAKKAR [phone] [id number] KAY COLLINS Self - patient is the [...]
--- OUTSIDE RECORDS SUMMARY | 2024-08-11 18:02 | XMS_ITS ---
Author Organization [facility] Address [address] [place] [id number] Care Team Providers Care Longwall Foreman Name Role Phone SHANDRA MIDDLETON Primary Care Provider [phone] REASON FOR VISIT f/u meds, pain Encounters Encounter Location Date Provider Diagnosis [address] [id number] 01/01/2024 SHANDRA MIDDLETON PLAN OF TREATMENT No Information Progress Notes * JACKIE COLLINSOB:[birth year] (88 yo F)Acc No.[id number]:01/01/2024 Progress Notes Patient:??KAY COLLINS Provider:??Shandra Middleton DNP :1935?Age:88 Y?Sex:Fe male Date:01/01/2024 Phone: Address:[address] [place] [address], [address] , [place], [place] Subjective: * Chief Complaints: * ?1. F/u meds, pain. * Medical History:?? Objective: Assessment: Plan: * Treatment: * Billing Information: * Visit Code:?? * Procedure Codes:?? * Sign off status: Pending * Provider:??Shandra Middleton DNP Date:??0 01/01/2024
--- OUTSIDE RECORDS SUMMARY | 2024-08-11 18:02 | XMS_ITS ---
Author Organization [facility] [employer] [facility] Address [address] [place] [id number] Care Team Providers Care Machine Setter Sheet Metal Name Role Phone SHANDRA MIDDLETON Primary Care [...] a day for 90 days Active Nystatin 158425 UNIT/GM apply a light dusting to the [...] unspecified type (I48.91) Active confirmed Atrial fibrillation (37914826) VITAL SIGNS Blood pressure systolic 122 mm Hg 01/22/20 24 Blood pressure diastolic 68 mm Hg 024 Heart Rate 55 /min 01/22/2024 Height 59 in 01/22/2024 Weight 174.6 lbs 01/22/2024 BMI 35.26 kg/m2 01/22/2024 Oximetry 95 % 01/22/2024 Height-cm 149.86 cm 01/22/2024 Weight-kg 79.2 kg 01/22/2024 Encounters Encounter Location Date Provider Diagnosis [address] [id number] 01/22/2024 SHANDRA MIDDLETON Moderate persistent asthma, uncomplicated [...] by hospital team. She was referred to [place] cardiology, we encouraged her to make this appointment. Continue with current care plan until this time. She continues to diurese fluid, we will continue to monitor breathing. Provided extensive education to patient and her daughter regarding signs and symptoms that require emergency care 01/22/2024 Other This visit was performed by [facility] [employer] [facility] student Sumi Jacome RN under the supervision of Shandra Middleton DNP, ART, BAR CAPTAIN-C, MAURY. PLAN OF TREATMENT Treatment Notes Assessment [...] by hospital team. She was referred to [place] cardiology, we encouraged her to make this appointment. Continue with current care plan until this time. She continues to diurese fluid, we will continue to monitor breathing. Provided extensive education to patient and her daughter regarding signs and symptoms that require emergency care Other This visit was perfo rmed by [facility] [employer] [facility] student Sumi Jacome RN under the supervision of Shandra Middleton DNP, ART, BAR CAPTAIN-C, MAURY. Progress Notes * JACKIE COLLINSOB:[birth year] (88 yo F)Acc No.[id number]:01/22/2024 Progress Notes Patient:??DENNISMEKAKAY Provider:??Shandra Middleton DNP :1935?Age:88 Y?Sex:Fe male Date:01/22/2024 Phone: Address:[address] [place] [address], [place] [address] , [place], [place] Subjective: * Chief Complaints: * ?1. F/u [...] at the ED, she was feeling extremely iyz8grthk and SOB for 2.5 days. At ED [...] Bruise easily, PND - Sinus Infections. * Patent Legal Assistant History:?Last pap smear date??Recent PIPE AND TANK FABRICATOR visit 2021 for overactive bladder w/full exam, [...] drink alcohol?: Yes, Socially (). ?Lives in [place], [place] in elderly complex, alone. * Medications:??Taking [...] MOUTH EVERY DAY NEEDED , Taking Nystatin 777548 UNIT/GM Powder apply a light dusting to [...] by hospital team. She was referred to [place] cardiology, we encouraged her to make this appointment. Continue with current care plan until this time. She continues to diurese fluid, we will continue to monitor breathing. Provided extensive education to patient and her daughter regarding signs and symptoms that require emergency care? 4.??Others?? Notes: This visit was performed by BAR CAPTAIN student Sumi Jacome RN under the supervision of Shandra Middleton DNP, NURSING SURGICAL SERVICES DIRECTOR, BAR CAPTAIN-C, VWCN. ? * Preventive Medicine:?Last CPE: 04/11/2022 DEXA: Colonoscopy: Yes, no longer gets them Endoscopy: No Covid Vac: Yes Flu Vac: Yes PV: Yes Shingles Vac: Yes. * Billing Information: * Visit Code:?? 41058 Office Visit, Est Pt., Level 3. * [...]
--- OUTSIDE RECORDS SUMMARY | 2024-08-11 18:03 | XMS_ITS ---
Author Organization [facility] Address [address] [place] [phone] Care Team Providers Care Screen Printing Equipment Setter Name Role Phone Ling Middleton DNP Primary Care Provider Joanne Reeves Jr, Elbert Unavailable REASON FOR VISIT pantoprazole refill MEDICATIONS Medication SIG (Take, Route, Frequency, Duration) Notes Start Date End Date Status Pantoprazole Sodium 40 MG TAKE 1 TABLET BY MOUTH EVERY DAY for 90 days Active Encounters Encounter Location Date Provider Diagnosis [facility] [address] [place] [address] 03/26/2023 Elbert Reeves Jr PLAN OF TREATMENT Medication Medication Name Sig Start Date Stop Date Notes Pantoprazole Sodium 40 MG TAKE 1 TABLET BY MOUTH EVERY DAY for 90 days
--- OUTSIDE RECORDS SUMMARY | 2024-08-11 18:03 | XMS_ITS | Data Portability ---
Author Organization [facility] [place] [facility] RONAN rodriguez PAIN OFFICE Address [address] [facility] [address] [place] [address] Care Team Providers Care Pipe Inspector Name Role Phone SHALA DELGADO Referring Provider [phone] ANISHA RALPH Primary Care Provider Assessment Encounter [...] booked for the same. She needs a delivery route driver on the day of the procedure. [...] was advised to keep a pain diary. [email or web address] a Not available 09/08/2015 14:23:25 09/13/2015 09/13/2015 [...] [id number], [address] [place], [address], 6 08:56:14 Flector 1.3 % transder mal 12 hour patch 2015 016 [email or web address] [id number], [address] [place], [address], 6 11:36:11 Patient TargetsNo targets recorded. Patient Instructions Encounter Date Encounter Id Patient Instructions Last Modified By Organization Details Last Modified Time 08/16/2015 [id number] She was advised against bed rest lasting longer than four days and to continue activities as tolerated. [email or web address] Not available 08/16/2015 13:04:51 09/01/2015 [id number] She was advised against bed rest lasting longer than four days and to continue activities as tolerated. [email or web address] Not available 09/01/2015 15:28:37 09/07/2015 [id number] She was advised against bed rest lasting longer than four days and to continue activities as tolerated. [email or web address] Not available 09/08/2015 14:18:24 09/13/2015 [id number] She was advised against bed rest lasting longer than four days and to continue activities as tolerated. [email or web address] Not available 09/13/2015 14:59:45 09/23/2015 [id number] She was advised against bed rest lasting longer than four days and to continue activities as tolerated. [email or web address] Not available 09/27/2015 10:03:45 Reason for Referral None Reported. Results Created Date Observation Date Name Description Value Unit Range Abnormal Flag Note LastModifiedBy Organization Detail LastModifiedTime 08/22/19 16 08/22/2015 x-ray , shoul lissette, 2 views No observ ation record ed. [facility] [address] [place] [address], [place], [address], 09/01/2015 15:28:37 Result Notes None recorded. Problems Name Problem SNOMED Code Status Onset Date Resolution Date Notes Provider Name and Address Organization Details Recorded Time Enthesopathy of hip region 09000776 Active Johnny henning MD [address] , [address], [place], [address], [place] [facility] 6 11:36:10 Lumbosacral spondylosis without myelopathy 01339123 Active Johnny henning MD [address] , [address], [place], [address], [place] [facility] 6 11:36:10 Lumbar post-laminecto my syndrome 318879165 Active Johnny henning MD [address] , [address], [facility] [place], [address], [place] [facility] 6 11:36:10 Lumbosacral radiculitis 28827618 Jillian henning MD [address] , [address], [facility] [place], [address], [place] [facility] 6 11:36:10 Disorder of bursa of shoulder region 88519843 Jillian henning MD [address] , [address], [facility] [place], [address], [place] [facility] 6 11:36:11 Muscle pain 20487801 Active Johnny henning MD [address] , [address], [place], [address], [place] [facility] 6 11:36:10 Problem Notes None recorded. Procedures Surgical History Date Name Laterality Status Provider Name and Address Organization Details Recorded Time 09/13/19 16 Radiofrequency of Lumbar/Sacral medial branches supplying the facets under fluoroscopic guidance completed Johnny Montanez MD [address] , [address], [place], [address], [place] [facility] 09/14/2015 14:17:33 09/07/19 16 Lumbar median branch block under fluroscopic guidance completed Johnny Montanez MD [address] , [address], [place], [address], [place] [facility] 09/08/2015 14:23:25 08/16/19 16 Fluoroscopic Guided Lumbar Facet Steroid Injections of levels completed Johnny Montanez MD [address] , [address], [place], [address], [place] [facility] 08/16/2015 13:09:50 03/08/20 15 Fluoroscopic Guided Lumbar Facet Steroid Injections of levels completed Johnny Montanez MD [address] [facility] [address], [place], [address], [place] [facility] 03/09/2015 09:22:44 [...] Time 08/22/2015 x-ray, shoulder, 2 views completed [facility] [address] [facility], [place], [address], 09/01/2015 15:28:37 Procedure Notes None recorded. Medical [...] Not Available Not Available N ot Available metoprolol succinate er 25 mg tb24 active Not Available Not Available Not Available sertraline hcl 50 mg tabs active [...] % 182 mm[Hg] 72 mm[Hg] Anisha Mendieta [facility] 6 10:23:34 Date Recorded Oxygen saturation Oxygen saturation in Arterial blood by Pulse oximetry Heart rate Systolic blood pressure Diastolic blood pressure Provider Name and Address Organization Details Last Updated DateTime 6 97 % 97 % 76 /min 118 mm[Hg] 58 mm[Hg] Anisha Mendieta [facility] 6 15:00:38 Date Recorded Oxygen [...] Smoker Quit x 40 years Not Available [facility] 05/13/2020 03:16:11 What Is Your Level Of Alcohol Consumption? Moderate Wine [id number] Information not available 05/13/2020 Are You Currently Employed? No [id number] Information not available 05/13/2020 Which Illicit Or Recreational Drugs Have You Used? No [id number] Information not available 05/13/2020 Education 12 Information no t available 03/01/2015 Live Alone Or With Others? Alone Information not available 03/01/2015 Marital Status Informatio n not available 03/01/2015 How Many Years Have You Smoked Tobacco? 20 [id number] Information not available 05/13/2020 Sex: Unknown Functional Status None recorded. Mental Status None recorded. Family History Relationship Description Onset Age of this Age Resolved Age Notes LastModified by Organization Details LastModified Time Mother Diabetes mellitus [email or web address] Not available 07/2015 10:03:15 Mother Problem Arthri tis [email or web address] Not available 09/27/2015 10:03:15 Medical History Condition Response Neuropathy/Neuralgia Y Anxiety Disorder Y Arthritis Y Hypertension Y Gynecological HistoryNo gynecological history recorded. Obstetrics History GPAL:G 0 P 0 0 0 0 Past Encounters Encounter ID Performer Location Encounter Start Date Encounter Closed Date Diagnosis/Indication Diagnosis SNOMED-CT Code Diagnosis ICD10 Code Diagnosis Note [id number] [facility] [address] [facility] [place] [address] 03/01/2015 10:09:29 03/02/2015 11:29:26 Lumbar post-laminectomy syndrome 124983766 Lumbosacra l radiculitis 88322403 Lumbosacra l spondylosis without myelopathy 35114085 Enthesopat hy of hip region 90605356 [id number] [facility] [address] [facility] [place] [address] 03/08/2015 14:21:23 03/09/2015 09:25:14 Lumbosacral spondylosis without myelopathy 55812018 Enthesopat hy of hip region 79492627 Lumbosacra l radiculitis 63077038 Lumbar post-laminectomy syndrome 424394874 [id number] [facility] [address] [facility] [place] [address] 04/11/2015 14:50:34 04/12/2015 09:13:56 Lumbosacral spondylosis without myelopathy 34539134 Enthesopat hy of hip region 57439766 Lumbosacra l radiculitis 41984667 Lumbar post-laminectomy syndrome 499709569 [id number] Johnny Montanez MD [facility] [address] [facility] [place] [address] 08/16/2015 10:11:47 08/16/2015 14:46:00 Lumbosacral spondylosis without myelopathy 66379534 M47.817 Enthesopat hy of hip region 22833819 M76.9 Lumbosacra l radiculitis 82324921 M54.17 Lumbar post-laminectomy syndrome 514764081 M96.1 Disorder o f bursa of shoulder region 94606541 M25.812 [id number] Johnny Montanez MD [facility] [address] [facility] [place] [address] 09/01/2015 14:03:53 09/01/2015 15:37:11 Lumbosacral spondylosis without myelopathy 48852812 M47.817 Enthesopat hy of hip region 25245799 M76.9 Disorder o f bursa of shoulder region 53694686 M25.812 Lumbosacra l radiculitis 27662118 M54.17 Lumbar post-laminectomy syndrome 823730544 M96.1 [id number] Johnny Montanez MD PAIN OFFICE [address] [place] [address] 09/07/2015 09:36:32 09/08/2015 14:24:03 Lumbosacral spondylosis without myelopathy 09763813 M47.817 Enthesopat hy of hip region 20199016 M70.61 Disorder o f bursa of shoulder region 73769601 M25.812 Lumbosacra l radiculitis 51204277 M54.17 Lumbar post-laminectomy syndrome 181912173 M96.1 [id number] Johnny Montanez MD PAIN OFFICE [address] [place] [address] 09/13/2015 10:08:37 09/13/2015 15:13:45 Lumbosacral spondylosis without myelopathy 14366265 M47.817 Lumbar post-laminectomy syndrome 900502180 M96.1 Enthesopat hy of hip region 53811755 M70.61 Disorder o f bursa of shoulder region 18246232 M25.812 Lumbosacra l radiculitis 36940958 M54.17 [id number] Johnny Montanez MD PAIN OFFICE [address] [place] [address] 09/23/2015 08:47:47 09/27/2015 11:36:33 Lumbosacral spondylosis without myelopathy 50756266 M47.817 Lumbar post-laminectomy syndrome 154166517 M96.1 Lumbosacra l radiculitis 67304386 M54.17 Muscle pain 64247004 M79 .1 Enthesopat hy of hip region 27104303 M70.61 Disorder o f bursa of shoulder region 18155189 M25.812 Health Concerns Section Related Observation LastModified by Organization Detai ls LastModified Time None Recorded Concern Status LastModified by Organization Details LastModified Time None Recorded Advance Directives Directive None Recorded Payers Encounter Date Sequence Insurance Name Policy Number Policy Blanco Covered Member ID Blanco Member ID Guarantor Name 08/16/2015 1 [place] [facility] Brenda M Andras [id number] Brenda Andras 08/16/2015 2 [facility] (MEDICARE SUPPLEMENT) Brenda Andras [id number] Brenda Andras 09/01/2015 1 [place] [facility] Brenda M Andras [id number] Brenda Andras 09/01/2015 2 [facility] (MEDICARE SUPPLEMENT) Brenda Andras [id number] Brenda Andras 09/07/2015 1 [place] [facility] Brenda M Andras [id number] Brenda Andras 09/07/2015 2 [facility] (MEDICARE SUPPLEMENT) Brenda Andras [id number] Brenda Andras 09/13/2015 1 [place] [facility] Brenda M Andras [id number] Brenda Andras 09/13/2015 2 [facility] (MEDICARE SUPPLEMENT) Brenda Andras [id number] Brenda Andras 09/23/2015 1 [place] [facility] Brenda M Andras [id number] Brenda Andras 09/23/2015 2 [facility] (MEDICARE SUPPLEMENT) Brenda Andras [id number] Brenda Andras Notes Date Note Type [...] in her left shoulder. Johnny Montanez MD [address] [place] [address] , [address], [place], [address], [facility] - [facility] 08/18/2015 09:24:14 09/01/2015 text/html She is here for a follow up after a left shoulder X-ray. 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 She states she has seen a PA at [facility] and she recommended a total knee replacement. [...] an issue presently. Johnny Montanez MD [address] [facility] , [place] [address], [place], [address], [facility] 09/02/2015 11:09:45 09/07/2015 text/html She is here for a trial of right median branch block under fluoroscopic guidance at L4, L5and S1 medial branches. Johnny Montanez MD [address] [facility] , [address], [place], [address], [facility] 09/08/2015 15:45:44 09/13/2015 text/html She [...] with the RF. Johnny Montanez MD [address] [facility] , [address], [place], [address], [facility] [place] [facility] 09/14/2015 14:17:41 09/23/2015 text/html She is here for a follow up. She states she is noticing pain in her muscles in the low back and she had difficulty sleeping due to pain and muscle spasms since the radiofrequency ablation. She has been applying ice. She has seen Tamika at [facility] and has started synvisc injections for [...] bladder or bowel incontinence. Johnny Montanez MD [address] [place] [address] , [address], [place], [address], [facility] 10/03/2015 08:52:43 OBGyn Episode No OBEpisode recorded.
--- OUTSIDE RECORDS SUMMARY | 2024-08-11 18:03 | XMS_ITS | Data Portability ---
Author Organization [place] [facility], [facility] [place] Address [address] [place] [address] Assessment Encounter Date Assessment Date Assessment LastModified [...] 143 mm[Hg] 79 mm[Hg] Yun Harrell MD [address] [place] [address], [address] [place], [place] - [facility] 8 16:35:36 Date Recorded Body temperature Heart rate Respiratory rate Systolic blood pressure Diastolic blood pressure Provider Name and Address Organization Details Last Updated DateTime 8 98.5 [degF] 80 /min 18 /min 125 mm[Hg] 59 mm[Hg] GUILHERME Cazares NP [address] [place], [address] [place] [address] [facility] 8 10:16:59 Date Recorded Body temperature Heart rate Respiratory rate Systolic blood pressure Diastolic blood pressure Provider Name and Address Organization Details Last Updated DateTime 8 99.7 [degF] 68 /min 18 /min 103 mm[Hg] 57 mm[Hg] GUILHERME Cazares NP [address] [place] [address], [address] [place] [address] [facility] 8 09:45:06 Date Recorded Body temperature Heart rate Systolic blood pressure Diastolic blood pressure Provider Name and Address Organization Details Last Updated DateTime 12/05/2017 97.8 [degF] 80 /min 147 mm[Hg] 78 mm[Hg] GUILHERME HALL NP [address] [place] [address], [address] [facility] 12/05/2017 10:18:56 Date Recorded Body weight Body temperature Heart rate Oxygen saturation Oxygen saturation in Arterial blood by Pulse oximetry Systolic blood pressure Diastolic blood pressure Provider Name and Address Organization Details Last Updated DateTime 8 20841.5 2 g 97.8 [degF] 72 /min 96 % 96 % 99 mm[Hg] 41 mm[Hg] GUILHERME Cazares NP [address] [place] [address], [address] [place] [address] [facility] 8 09:38:58 Social History Question Answer Notes LastModified by Organizat ion Details LastModified Time Tobacco Smoking Status Former Smoker Yun Harrell MD [address] [place] [address], [address], [facility] 12/01/2017 16:36:41 What Is Your [...] SNOMED-CT Code Diagnosis ICD10 Code Diagnosis Note [id number] Yun Harrell MD [facility] [address] [place] [address] 12/01/2017 16:22:36 12/06/2017 14:56:06 Spinal stenosis of lumbar region 92035780 M48.061 s/p decompress ion, pain is controlled on tylenol, dilaudid, fentanyl patch, PT, OT, wound care Essential hypertension 08072368 I10 cont amlodipin, losartan Hyperlipidemia 20744715 E78.5 cont lipitor Gastroesop hageal reflux disease without esophagitis 154347525 K21.9 cont PPI Constipation 63031186 K5 9.00 colace, senna, miralax ,enema if needed Depressive disorder 3548 9007 F32.9 cont zoloft, trazodone [id number] GUILHERME HALL NP [address] [place] [address] [place] [address] 12/02/2017 10:05:52 12/04/2017 11:11:45 Spinal stenosis of lumbar region 22177540 M48.061 s/p decompress ion, pain is controlled on tylenol, dilaudid, fentanyl patch, cont with PT and OT here; incision is covered with steri stips and DPD Essential hypertension 15175093 I10 cont amlodipin, losartango od BP control Hyperlipidemia 90680234 E78.5 cont lipitor Gastroesop hageal reflux disease without esophagitis 082784861 K21.9 cont PPI Constipation 26563475 K5 9.00 good BM; cont current med regiment Depressive disorder 3548 9007 F32.9 cont zoloft, trazodone [id number] GUILHERME HALL NP [facility] [address] [place] [address] 12/04/2017 09:44:05 12/06/2017 14:28:20 Spinal stenosis of lumbar region 72546040 M48.061 s/p decompress ion, pain is controlled on tylenol, dilaudid, fentanyl patch, cont with PT and OT here; incision is covered with steri stips. Essential hypertension 86906750 I10 cont amlodipin, losartango od BP control Hyperlipidemia 43982016 E78.5 cont lipitor Gastroesop hageal reflux disease without esophagitis 725884193 K21.9 cont PPI Constipation 82616143 K5 9.00 good BM; cont current med regiment Depressive disorder 9026 9007 F32.9 cont zoloft, trazodone Leukocytosis 600952942 D 72.829 wbc 12; pt has a fever; will get UA [id number] GUILHERME HALL NP [facility] House [address] [place] [address] 12/05/2017 10:17:51 12/10/2017 16:37:53 Spinal stenosis of lumbar region 24019777 M48.061 s/p decompress ion, pain is controlled on tylenol, dilaudid, fentanyl patch, cont with PT and OT here; incision is covered with steri stips.pt jose be d/c home in a few days Leukocytosis 748365530 D 72.829 UA neg, afebrile; cbc pending from today Essential hypertension 16437311 I10 cont amlodipine , losartango od BP control Constipation 42298055 K5 9.00 good BM; cont current med regiment [id number] GUILHERME HALL NP [facility] [address] [place] [address] 12/06/2017 09:34:53 12/13/2017 12:45:01 Spinal stenosis of lumbar region 55788497 M48.061 s/p decompress ion, pain is controlled on tylenol, dilaudid, fentanyl patch,will give rx for fentalyn pathc #4 to go home withMass pat checkedf/u wit [place] in 8 weeks Essential hypertension 32362073 I10 cont amlodipin, losartan Hyperlipidemia 58638882 E78.5 cont lipitor Gastroesop hageal reflux disease without esophagitis 338773672 K21.9 cont PPI Constipation 40354938 K5 9.00 colace, senna, miralax ,enema if needed Depressive disorder 7940 9007 F32.9 cont zoloft, trazodone Health Concerns Section Related Observation LastModified by Organization Detai ls LastModified Time None Recorded Concern Status LastModified by Organization Details LastModified Time None Recorded Advance Directives Directive None Recorded Payers Encounter Date Sequence Insurance Name Policy Number Policy Blanco Covered Member ID Blanco Member ID Guarantor Name 12/01/2017 1 [place] [employer] Brenda M Andras [id number] Brenda Andras 12/02/2017 1 [place] [employer] Brenda M Andras [id number] Brenda Andras 12/04/2017 1 [place] [facility] Brenda M Andras [id number] Brenda Andras 12/04/2017 2 [facility] - MEDICARE ENHANCE (INDEMNITY PLAN) Brenda Andras [id number] Brenda Andras 12/05/2017 1 [place] [employer] Brenda M Andras [id number] Brenda Andras 12/05/2017 2 [facility] - MEDICARE ENHANCE (INDEMNITY PLAN) Brenda Andras [id number] Brenda Andras 12/06/2017 1 [place] [facility] Brenda M Andras [id number] Brenda Andras 12/06/2017 2 [facility] - MEDICARE ENHANCE (INDEMNITY PLAN) Brenda Andras [id number] Brenda Andras Notes Date Note Type Note Provider Name and Address Organization Details Recorded Time 12/01/2017 text/html seen for admission- came from [facility] where pt had L3-S1 decompression.Pt tolerated procedure well, pain is controlled on current fentanyl patch and dilaudidPt came to for further care Yun Harrell MD [address] [place], [address], [facility] 12/01/2017 16:43:01 12/02/2017 text/html seeing pt today for f/u; continues to work with therapy here, making progress. Pt came from [facility] where pt had L3-S1 decompression.Pt tolerated procedure well, pain is controlled on current fentanyl patch and dilaudid. GUILHERME HALL NP [address] [place], [address], [facility] 12/02/2017 10:21:10 12/04/2017 text/html seeing pt today for f/u; continues to work with therapy here, making progress. Pt came from [facility] where pt had L3-S1 decompression.Pt tolerated procedure well, pain is controlled on current fentanyl patch and dilaudid. GUILHERME HALL NP [address] [place], [address], [facility] 12/04/2017 12:59:51 12/05/2017 text/html seeing pt today for f/u; continues to work with therapy here, making progress.Ua was obtained yesterday; pt had elevated wbc Pt came from [facility] where pt had L3-S1 decompression.Pt tolerated procedure well, pain is controlled on current fentanyl patch and dilaudid. GUILHERME HALL NP [address] [place], [address], [facility] - [facility] 12/07/2017 15:19:06 12/06/2017 text/html seeing pt today for d/c; pt has done well with therapy here, made progress, will be d/c home tomorrow. GUILHERME HALL NP [address] [place], [address], [facility] - [facility] 12/08/2017 11:15:02 OBGyn Episode No OBEpisode recorded.
--- OUTSIDE RECORDS SUMMARY | 2024-08-11 18:03 | XMS_ITS | Patient Health Record ---
Author Organization [facility] Address [address] [place] [address] Care Team Providers Care Quarter Supervisor Name Role Phone Ling Middleton DNP Primary [...] a day for 30 day(s) Active Ipratropium [place] 0.06 % 2 sprays in e ach nostril Nasally Three times a day for 4 day(s) Active Amoxicillin 500 MG 1 capsule Orally NEEDED FOR DENTIST Active Calcium 500 MG 1 tablet Orally Once a day Active Tramadol & Dietary Manage Prod Active Vitamin D3 Ultra Potency 16269 UNIT 1 tablet Orally as directed Active [...] Notes Problem Rectal bleeding (K62.5) Active confirmed 94008985 Problem Gastro-esophagea l reflux disease without esophagitis (K21.9) Active confirmed 884748163 Problem Cough (R05) Active confirmed 11577867 Problem Urinary incontinence, unspecified type (R32) Active confirmed 369099865 PLAN OF TREATMENT Pending Test Test Name Order Date XR GI SERIES 07/14/2015 Insurance Providers Payer Name Payer Address Payer Phone Subscriber Number Group Number Insured Name Patient Relationship to Insured Coverage Start Date Coverage End Date MED[place] OF [place] [address] [place] [address] [id number] ANDKAY AVILES Self - patient is the insured [employer] [address] [place]AK[place] [id number] KAY COLLINS Self - patient is the insured MEDICAL (GENERAL) HISTORY Medical History History ICD Code EGD/colonoscopy 01/03/2006. No evidence of Morse's esophagus. Hyperplastic colon polyp. Seasonal allergic rhinitis hypertension hypercholesterolemia scoliosis arthritis depression Surgical History Surgery Date(Month/Year) Vocal cord polyp 2006 Multiple back and neck surgeries rotator cuff surgery both knee replacement left
== END 2024-08-11 15:53 | disposition home or self-care (01) ==
LOC: HO.US 15:52
PROVIDERS: PCP Physician Assistant; Visit Provider Physician Assistant
DX: N28.9 Disorder of kidney and ureter, unspecified (principal)
CPT/HCPCS: 76775

== ENCOUNTER → 2024-08-11 15:55 | Outpatient (BNV) | payer OTHER, MEDICARE, SELFPAY | PROVIDERS: PCP Physician Assistant; Visit Provider Nuclear Medicine | DX: N28.9 Disorder of kidney and ureter, unspecified (principal) | CPT/HCPCS: 76775 ==

== ENCOUNTER 2024-08-27 14:52 | Outpatient (AMB) | payer OTHER, SELFPAY ==
--- NOTE | 2024-08-27 14:45 | MHC.PC.OV ---
Intake Visit Reasons: bp, leg swelling, pain management 30 mins Intake Note: Leg swelling off and on since last visit. Bought compression stocking. Took half of furosemide, swelling has come down. Xtampza is causing a lot anxiety and stress. Didn't take one last night and this morning and she feels better today. Insurance does not want to cover the Xtampza. They gave her one month supply. Allergies bee pollen Allergy (Unknown, Verified 08/27/24 14:47) Unknown house dust mite Allergy (Unknown, Verified 08/27/24 14:47) Unknown adhesive tape Adverse Reaction (Intermediate, Verified 08/27/24 14:47) Rash Medication List - Last Reconciled 08/27/24 by Allison Ham PA-C albuterol sulfate 90 mcg/actuation 2 puffs PO Q6H PRN amlodipine 5 mg PO DAILY cholecalciferol (vitamin D3) 50 mcg PO DAILY fluticasone furoate-vilanterol 200-25 mcg/dose (Breo Ellipta) 1 ea inhalation DAILY fluticasone propionate 50 mcg/actuation 1 spray intranasal BID furosemide 20 mg PO QAM ipratropium bromide 2 sprays intranasal Q12H losartan 50 mg PO DAILY metoprolol succinate ER 50 mg See Protocol PO DAILY 90 days oxycodone 5 mg PO Q8H PRN 28 days oxycodone myristate CR-ER (Xtampza ER) 9 mg PO Q12H 28 days pantoprazole 40 mg PO DAILY@0630 rivaroxaban (Xarelto) 20 mg PO QPM 90 days romosozumab-aqqg (Evenity) 210 mg (2.34 mL) subcut .q month 12 months trazodone 100 mg PO BEDTIME vibegron (Gemtesa) 75 mg PO DAILY walker A rolling walker with seat use daily As directed Tobacco use date assessed: 01/29/24 Dental Screening Dental Screen Date: 01/29/24 HPI bp, leg swelling, pain management 30 mins HPI Details Patient is an 88-year-old female who presents today for a follow up regarding her stress. She has a significant past medical history of hypertension, CKD, GERD, chronic pain disorder, s/p laminectomy syndrome, mood disorder, urge incontinence and AFib. Musculoskeletal: Today she tells me that she has been taking the Xtampza nightly for the last few weeks and has had some improvement but does not feel tired with the medication. She is not using the oxycodone as much. -Seeing back specialist in [place] Dr. Kc -She is also seeing Dr. Lopez from physiatry. Psych: She has been on Zoloft 50 mg and trazodone 100 mg for some time and feels well-controlled with this. Daughter feels that the Zoloft could be a little stronger for the anxiety. She states that she has had some increase of anxiety. 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 She says that she has been a little reactive with this and people have picked up on her stress and anxiety. [facility] Medical History (Updated 08/06/24 @ 13:00 by Carlito Collier MD) Generalized anxiety disorder Insomnia Major depression, recurrent, chronic Arthritis High blood cholesterol COPD (chronic obstructive pulmonary disease) Urge incontinence Joint pain Chronic back pain HTN (hypertension) Bleeding hemorrhoid Back pain with history of spinal surgery Surgical History History of back surgery History of surgery Family History Father Thrombosis Mother Diabetes Heart rate problem Social History Household Members: None Housing: Apartment Do you presently have visiting nurse or other home services: Yes (CLOTH WINDING SUPERVISOR for housekeeping 2 times per week) Patient Tobacco Use Status: Former Tobacco user Tobacco use type: Cigarette Cigarettes Per Day: 15 Years Smoked: 10 e-Cigarette/Vaping Use: Never Used Second Hand Smoke Exposure: No Substance Use Type: Painkillers service: No Current occupational status: retired Cognitive needs: No Hearing needs: Yes (hearing aids) Vision needs: No Questionnaire Thrive Questionnaire Date Thrive assessed: 07/29/24 RAYNE-7 AMB Questionnaire RAYNE-7 Date RAYNE - 7 assessed: 01/29/24 Source: Developed by Drs. Rommel Olivares, Kaylee Fabian, Al Ny and colleagues, with an educational ken from [employer]. Physical exam (Primary Care) Tobacco/Smoking Status: Tobacco use Status Tobacco use date assessed 01/29/24 08/27/24 14:52 Patient Tobacco Use Status Former Tobacco user 08/27/24 14:52 Tobacco use type Cigarette 08/27/24 14:52 e-Cigarette/Vaping Use Never Used 08/27/24 14:52 Thrive Assessment: Date of Thrive Assessment Date Thrive assessed 07/29/24 08/27/24 14:52 Telehealth Telehealth Telehealth Platform: Telephone Location of provider rendering services: practice address Location of patient: address on file Patient Identification confirmed using: Name, : Yes Telehealth method: voice only Patient verbally consented to treatment: Yes Patient verbally consented to billing insurance company: Yes Patient informed of any privacy concerns related to visit: Yes Minutes spent on Phone/Video with Pt.: 16 Coding Level of Care Code Tele Est Pt Level 2 (37344) Diagnoses Major depression, recurrent, chronic F33.9 Generalized anxiety disorder F41.1 Failed back syndrome, lumbar M96.1 Assessment & Plan Assessment & Plan (1) Major depression, recurrent, chronic: Code(s): F33.9 - Major depressive disorder, recurrent, unspecified Category: Medical Plan: We will increase Zoloft to 100 mg. We will follow up in 4-6 weeks. (2) Generalized anxiety disorder: Code(s): F41.1 - Generalized anxiety disorder Category: Medical Plan: As above (3) Failed back syndrome, lumbar: Code(s): M96.1 - Postlaminectomy syndrome, not elsewhere classified Category: Medical Plan: Continue current pain regimen. We will sign updated contract at follow up. Medications: New sertraline 100 mg PO DAILY 90 tabs 2RF
--- OUTSIDE RECORDS SUMMARY | 2024-08-27 18:47 | XMS_ITS ---
Author Organization [facility] Address [address] [place] [phone] Care Team Providers Care Business Analytics Intern Name Role Phone SHANDRA MIDDLETON Primary Care Provider REASON FOR VISIT f/u meds, pain Encounters Encounter Location Date Provider Diagnosis [address] [id number] 01/01/2024 SHANDRA MIDDLETON PLAN OF TREATMENT No Information Progress Notes * JACKIE COLLINSOB:[birth year] (88 yo F)Acc No.[id number]:01/01/2024 Progress Notes Patient:??KAY COLLINS Provider:??Shandra Middleton DNP :1935?Age:88 Y?Sex:Fe male Date:01/01/2024 Phone: Address:[address] [place] [address], [address] , [place], [id number] Subjective: * Chief Complaints: * ?1. F/u meds, pain. * Medical History:?? Objective: Assessment: Plan: * Treatment: * Billing Information: * Visit Code:?? * Procedure Codes:?? * Sign off status: Pending * Provider:??Shandra Middleton DNP Date:??0 01/01/2024
--- OUTSIDE RECORDS SUMMARY | 2024-08-27 18:47 | XMS_ITS ---
Author Organization [facility] Address [address] [place] [id number] Care Team Providers Care Mattress Finisher Name Role Phone SHANDRA MIDDLETON Primary Care Provider [phone] ALLERGIES Allergen (clinical drug ingredient) Drug/Non Drug [...] a day for 90 days Active Nystatin 424685 UNIT/GM apply a light dusting to the [...] unspecified type (I48.91) Active confirmed Atrial fibrillation (13384860) VITAL SIGNS Blood pressure systolic 122 mm Hg 01/22/20 24 Blood pressure diastolic 68 mm Hg 024 Heart Rate 55 /min 01/22/2024 Height 59 in 01/22/2024 Weight 174.6 lbs 01/22/2024 BMI 35.26 kg/m2 01/22/2024 Oximetry 95 % 01/22/2024 Height-cm 149.86 cm 01/22/2024 Weight-kg 79.2 kg 01/22/2024 Encounters Encounter Location Date Provider Diagnosis [address] [id number] 01/22/2024 SHANDRA MIDDLETON Moderate persistent asthma, uncomplicated [...] by hospital team. She was referred to [facility], we encouraged her to make this appointment. Continue with current care plan until this time. She continues to diurese fluid, we will continue to monitor breathing. Provided extensive education to patient and her daughter regarding signs and symptoms that require emergency care 01/22/2024 Other This visit was performed by [facility] student Sumi Jacome RN under the supervision of Shandra Middleton DNP, ART, HEADLINER INSTALLER-C, MAURY. PLAN OF TREATMENT Treatment Notes Assessment [...] by hospital team. She was referred to [facility], we encouraged her to make this appointment. Continue with current care plan until this time. She continues to diurese fluid, we will continue to monitor breathing. Provided extensive education to patient and her daughter regarding signs and symptoms that require emergency care Other This visit was perfo rmed by [employer] student Sumi Jacome RN under the supervision of Shandra Middleton DNP, ART, HEADLINER INSTALLER-C, MAURY. Progress Notes * JACKIE COLLINSOB:[birth year] (88 yo F)Acc No.[id number]:01/22/2024 Progress Notes Patient:??DENNISMEKAKAY Provider:??Shandra Middleton DNP :1935?Age:88 Y?Sex:Fe male Date:01/22/2024 Phone: Address:[address] [place] [address], [place] [address] , [place], [id number] Subjective: * Chief Complaints: * ?1. F/u [...] at the ED, she was feeling extremely all0rstkt and SOB for 2.5 days. At ED [...] easily, PND - Sinus Infections. 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 ?Lives in [place], [place] in elderly complex, alone. * Medications:??Taking [...] MOUTH EVERY DAY NEEDED , Taking Nystatin 214121 UNIT/GM Powder apply a light dusting to [...] by hospital team. She was referred to [facility], we encouraged her to make this appointment. Continue with current care plan until this time. She continues to diurese fluid, we will continue to monitor breathing. Provided extensive education to patient and her daughter regarding signs and symptoms that require emergency care? 4.??Others?? Notes: This visit was performed by [employer]LINER INSTALL[employer] student Sumi Jacome RN under the supervision of Shandra Middleton DNP, FIELD EDUCATION COORDINATOR, HEADLINER INSTALLER-C, VWCN. ? * Preventive Medicine:?Last CPE: 04/11/2022 DEXA: Colonoscopy: Yes, no longer gets them Endoscopy: No Covid Vac: Yes Flu Vac: Yes PV: Yes Shingles Vac: Yes. * Billing Information: * Visit Code:?? 20393 Office Visit, Est Pt., Level 3. * [...]
--- OUTSIDE RECORDS SUMMARY | 2024-08-27 18:47 | XMS_ITS ---
Author Organization [facility] Address [address] [place] [phone] Care Team Providers Care Webbing Seamer Pound Net Name Role Phone Ling Middleton DNP Primary Care Provider Joanne Reeves Jr, Elbert Unavailable REASON FOR VISIT pantoprazole refill MEDICATIONS Medication SIG (Take, Route, Frequency, Duration) Notes Start Date End Date Status Pantoprazole Sodium 40 MG TAKE 1 TABLET BY MOUTH EVERY DAY for 90 days Active Encounters Encounter Location Date Provider Diagnosis [facility] [address] [place] [address] 03/26/2023 Elbert Reeves Jr PLAN OF TREATMENT Medication Medication Name Sig Start Date Stop Date Notes Pantoprazole Sodium 40 MG TAKE 1 TABLET BY MOUTH EVERY DAY for 90 days
--- OUTSIDE RECORDS SUMMARY | 2024-08-27 18:47 | XMS_ITS | Patient Health Record ---
Author Organization [facility], [facility] Address [address], [place] [id number] Care Team Providers Care Skein Straightener Name Role Phone SHANDRA MIDDLETON Primary Care Provider Shelby Johnson Unavailable [phone] ALLERGIES Allergen (clinical drug ingredient) Drug/Non Drug Allergy documented on EMR Reaction Allergy Type Onset Date Status Dust Mites Unknown Allergy Active REASON FOR REFERRAL Reason Please refer to Pain Management at [address] [place] [address] (Radiofrequency for neck) , Diagnosis 1 Bilateral low back p ain, unspecified chronicity, unspecified whether sciatica present (M54.50) Diagnosis 2 Osteoarthritis of hi p, unspecified (M16.9) Diagnosis 3 Osteoarthritis of marco th knees, 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) Referral Organization [facility] Referring Provider First Name SHANDRA Referring Provider Last Name HARRY Referring Provider Speciality Nurse Prac titioner Referred Organization [facility] Referred Address [address], [id number], Referred Provider Specialty Pain Medicin e General Notes ADAL VARELA 0 09/03/2023 10:05:37 AM >demographics, referral and office note faxed to [facility] [phone], ADAL VARELA 09/05/2023 11:02:09 AM >demographics, updated referral and office note faxed to pain management at [address] [place] [address] Referral Priority Routine MEDICATIONS Medication SIG (Take, [...] a day for 90 days Active Nystatin 354323 UNIT/GM apply a light dusting to the [...] (primary) hypertension (I10) Active confirmed Essential hypertension (16893425) Problem Moderate persistent asthma, uncomplicated (J45.40) Active confirmed Uncomplicated moderate persistent asthma (115909605) Problem Osteoarthritis of hip, unspecified (M16.9) Active confirmed Osteoarthritis of hip (662147359) Problem Sacroiliitis, not elsewhere classified (M46.1) Active confirmed Solitary sacroiliitis (426931366) Problem Overactive bladder (N32.81) Active confirmed Overactive bladder (165349371) Problem 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) Active confirmed Postmenopa usal atrophic vaginitis (00529102) Problem Atrial fibrillation, unspecified type (I48.91) Active confirmed Atrial fibrillation (66107670) VITAL SIGNS Heart Rate 55 /min 01/22/2024 Temperature 98.4 degrees Fahrenheit 12/11/2023 Oximetry 95 % 01/22/2024 Height-cm 149.86 cm 01/22/2024 Blood pressure diastolic 68 mm Hg 01/22/2024 Weight-kg 79.2 kg 01/22/2024 Height 59 in 01/22/2024 Blood pressure systolic 122 mm Hg 01/22/2024 Weight 174.6 lbs 01/22/2024 BMI 35.26 kg/m2 01/22/2024 Encounters Encounter Location Date Provider Diagnosis [address] [id number] 01/01/2024 SHANDRA MIDDLETON [address] [id number] 01/22/2024 SHANDRA MIDDLETON Moderate persistent asthma, uncomplicated J45.40 ; Overactive bladder N32.81 and Atrial fibrillation, unspecified type I48.[address] [id number] 08/27/2023 SHANDRA MIDDLETON Sacroiliitis, not elsewhere classified M46.1 ; Moderate persistent asthma, uncomplicated J45.40 ; Overactive bladder N32.81 ; Essential (primary) hypertension I10 ; Other localized visual field defect, unspecified eye H53.459 and Depression, unspecified F32.A [address] [id number] 10/29/2023 SHANDRA MIDDLETON Cervicalgia M54.2 ; Sacroiliitis, not elsewhere classified M46.1 ; Overactive bladder N32.81 and Moderate persistent asthma, uncomplicated J45.[address] [id number] 12/03/2023 Shelby Johnson Skin rash R21 [address] [id number] 12/11/2023 Shelby Johnson Shortness of breath R06.02 ; Wheezing R06.2 ; Acute cough R05.1 and Pneumonia of right lung due to infectious organism, unspecified part of lung J18.[address] [id number] 12/24/2023 SHANDRA MIDDLETON Sacroiliitis, not elsewhere classified M46.1 ; Depression, unspecified F32.A ; Moderate persistent asthma, uncomplicated J45.40 and Essential (primary) hypertension I10 [address] [id number] 09/02/2023 SHANDRA MIDDLETON Bilateral low back pain, unspecified chronicity, unspecified whether sciatica present M54.50 ; Osteoarthritis of hip, unspecified M16.9 and Osteoarthritis of both knees, unspecified osteoarthritis type M17.[address] [id number] 09/17/[address] [id number] 10/11/[address] [id number] 10/21/2023 SHANDRA MIDDLETON Sacroiliitis, not elsewhere classified M46.[address] [id number] 11/29/2023 SHANDRA MIDDLETON Sacroiliitis, not elsewhere classified M46.[address] [id number] 12/12/[address] [id number] 01/22/2024 SHANDRA MIDDLETON Sacroiliitis, not elsewhere classified [...] and coordination of care. Gil Irizarry BSN, BEREAVEMENT PROGRAM COORDINATOR student saw the patient and formulated the [...] by hospital team. She was referred to [facility], we encouraged her to make this [...] 01/22/2024 Other This visit was performed by [employer] student Sumi Jacome RN under the supervision of Shandra Middleton, ZINA, APPLICATION SUPPORT ENGINEER, SALES PORTER-C, VWKB. 10/29/2023 Other Total time spen t [...] Medicare [address] [place] [address] [id number] KAY COLLINS Self - patient is the insured [facility] [address] BRINDA THAKKAR [phone] [id number] KAY COLLINS Self - patient is the [...]
--- OUTSIDE RECORDS SUMMARY | 2024-08-27 18:48 | XMS_ITS | Data Portability ---
Author Organization [facility] Pain Managem michael, [facility] Address [address] [facility] [address] [place] [address] Care Team Providers Care Delivery Helper Name Role Phone SHALA DELGADO Referring Provider [phone] ANISHA RALPH Primary Care Provider Assessment Encounter Date Assessment Date Assessment LastModified by Organization Details LastModified Time 08/16/2015 08/16/2015 Brenda Wolf is a 79 year old woman with complaints of? ? ?low back pain . On exam, she has pain on flexion and a positive? ? ?facet loading? ? ?on the right. MRI Lumbar spine shows Marked [...] and disc herniation. She is here for a? ? ?left facet joint injections at L4-5 and L5-S1 levels under fluoroscopic guidance. The risks and benefits of the procedure? ? ? were discussed in detail. She wishes to proceed. She will follow up in four weeks. She is? ? ?complaining of pain in her left shoulder . I will order an X-Ray of her left shoulder .She will follow in 3-4 weeks. [email or web address] Not available 08/16/2015 13:06:36 09/01/2015 09/01/2015 Brenda Wolf is a 79 year old woman with complaints of? ? ? low back pain radiating into both hips, right is greater than left . On exam, she has pain on flexion and a positive? ? ?facet loading? ? ?on the right. MRI Lumbar spine shows Marked [...] levels of disc osteophyte complex and disc herniation.? ? ?She reports good pain benefit after ? ? ?right facet joint injections at L4-5 and L5-S1 levels under fluoroscopic guidance with return of pain back to baseline. I recommend right medial branch block under fluoroscopic guidance.The risks and benefits of the procedure? ? ? were discussed in detail. She wishes to proceed.? ? ?An appointment has been booked for the same. She needs a rickshaw driver on the day of the procedure. [...] a 79 year old woman with complaints of? ? ? low back pain radiating into both hips, right is greater than left . On exam, she has pain on flexion and a positive? ? ?facet loading? ? ?on the right. MRI Lumbar spine shows Marked [...] levels of disc osteophyte complex and disc herniation.? ? ?She reports good pain benefit after ? ? ?right facet joint injections at L4-5 and L5-S1 levels under fluoroscopic guidance with return of pain back to baseline.? ? ?She is here for a? ? ?right medial branch block under fluoroscopic guidance.The risks and benefits of the procedure? ? ? were discussed in detail. She wishes to proceed.? ? ? If she has good pain benefit after the medial branch block , we will proceed with the radiofrequency ablation for her. She was advised to keep a pain diary. [email or web address] Not available 09/08/2015 14:23:25 09/13/2015 09/13/2015 Brenda Wolf is a 79 year old woman with complaints of? ? ? low back pain radiating into both hips, right is greater than left . On exam, she has pain on flexion and a positive? ? ?facet loading? ? ?on the right. MRI Lumbar spine shows Marked [...] levels of disc osteophyte complex and disc herniation.? ? ?She reports good pain benefit after ? ? ?right facet joint injections and medial branch blocks at L4-5 and L5-S1 levels under fluoroscopic guidance with return of pain back to baseline.? ? ?She is here for a? ? ?right radiofrequency ablation of? ? ? L4, L5 and S1 ? ? ?medial branches under fluoroscopic guidance.The risks and benefits of the procedure? ? ? were discussed in detail. She wishes to proceed.? ? ? She will follow up in six weeks. [email or web address] Not available 09/13/2015 15:04:09 09/23/2015 09/23/2015 Brenda Wolf is a 79 year old woman with complaints of? ? ? low back pain radiating into both hips, right is greater than left .?She is here for a? ? ?follow up after a right radiofrequency ablation of? ? ? L4, L5 and S1 ? ? ?medial branches under fluoroscopic guidance. She reports muscular [...] Orders Celebrex 200 mg capsule 2015 [address]16 [facility] #[id number], [address] [place], [address], 6 08:56:14 Flector 1.3 % transder mal 12 hour patch 2015 016 tmay[address] [facility]/Pharmacy #[id number], [address] [place], [address], 6 11:36:11 Patient TargetsNo targets recorded. Patient Instructions Encounter Date Encounter Id Patient Instructions Last Modified By Organization Details Last Modified Time 08/16/2015 [id number] She was advised against bed rest lasting longer than four days and to continue activities as tolerated. [email or web address] Not available 08/16/2015 13:04:51 09/01/2015 [id number] She was advised against bed rest lasting longer than four days and to continue activities as tolerated. [email or web address] Not available 09/01/2015 15:28:37 09/07/2015 [id number] She was advised against bed rest lasting longer than four days and to continue activities as tolerated. [email or web address] Not available 09/08/2015 14:18:24 09/13/2015 [id number] She was advised against bed rest lasting longer than four days and to continue activities as tolerated. [email or web address] Not available 09/13/2015 14:59:45 09/23/2015 [id number] She was advised against bed rest lasting longer than four days and to continue activities as tolerated. [email or web address] Not available 09/27/2015 10:03:45 Reason for Referral None Reported. Results Created Date Observation Date Name Description Value Unit Range Abnormal Flag Note LastModifiedBy Organization Detail LastModifiedTime 08/22/19 16 08/22/2015 x-ray , tony mclaughlin, 2 views No observ ation record [facility]. [facility] [address] [place] [address], [address], 09/01/2015 15:28:37 Result Notes None recorded. Problems Name Problem SNOMED Code Status Onset Date Resolution Date Notes Provider Name and Address Organization Details Recorded Time Enthesopathy of hip region 14840526 Active Johnny henning MD [address] , [address], [place], [address], [place] [facility] 6 11:36:10 Lumbosacral spondylosis without myelopathy [id number] Jillian henning MD [address] , [address], [place], [address], [place] [facility] 6 11:36:10 Lumbar post-laminecto my syndrome [id number] Jillian henning MD [address] , [address], [place], [address], [place] [facility] 6 11:36:10 Lumbosacral radiculitis 63493676 Jillian henning MD [address] , [address], [place], [address], [place] [facility] 6 11:36:10 Disorder of bursa of shoulder region 44874340 Active Johnny henning MD [address] [facility] [address], [place], [address], [place] [facility] 6 11:36:11 Muscle pain 38822601 Active Johnny henning MD [address] [facility] , [address], [place], [address], [place] [facility] 6 11:36:10 Problem Notes None recorded. Procedures Surgical History Date Name Laterality Status Provider Name and Address Organization Details Recorded Time 09/13/19 16 Radiofrequency of Lumbar/Sacral medial branches supplying the facets under fluoroscopic guidance completed Johnny Montanez MD [address] [facility] , [address], [place], [address], [place] [facility] 09/14/2015 14:17:33 09/07/19 16 Lumbar median branch block under fluroscopic guidance completed Johnny Montanez MD [address] [facility] , [address], [place], [address], [place] [facility] 09/08/2015 14:23:25 08/16/19 16 Fluoroscopic Guided Lumbar Facet Steroid Injections of levels completed Johnny Montnaez MD [address] [facility] , [address], [place], [address], [place] [facility] 08/16/2015 13:09:50 03/08/20 15 Fluoroscopic Guided Lumbar Facet Steroid Injections of levels completed Johnny Montanez MD [address] [facility] , [address], [place], [address], [place] [facility] 03/09/2015 09:22:44 Other completed Anisha Mendieta [place] [facility] 03/01/2015 10:58:13 Carpal tunnel release completed Anisha Mendieta [place] [facility] 03/01/2015 10:58:13 Lumbar Fusion completed Anisha Mendieta [place] [facility] 03/01/2015 10:58:13 Arthroscopic Surgery completed Anisha Mendieta [place] [facility] 03/01/2015 10:58:13 Other completed Anisha Mendieta [place] [facility] 03/01/2015 10:58:13 Knee Surgery completed Anisha Mendieta BRIN[facility] - [facility] 03/01/2015 10:58:13 Other completed Anisha Mendieta [place] [facility] 03/01/2015 10:58:13 Appendectomy completed Anisha Mendieta [place] [facility] 03/01/2015 15:26:13 Imaging Results Imaging Date Name Status LastModified by Organiz ation Details LastModified Time 08/22/2015 x-ray, shoulder, 2 views completed [facility] [address] [place] [address], [place], [address], 09/01/2015 15:28:37 Procedure Notes None recorded. Medical [...] 97 % 182 mm[Hg] 72 mm[Hg] [facility] 6 10:23:34 Date Recorded Oxygen saturation Oxygen saturation in Arterial blood by Pulse oximetry Heart rate Systolic blood pressure Diastolic blood pressure Provider Name and Address Organization Details Last Updated DateTime 6 97 % 97 % 76 /min 118 mm[Hg] 58 mm[Hg] [facility] 6 15:00:38 Date Recorded Oxygen [...] Smoker [facility]uit x 40 years [facility] 05/13/2020 03:16:11 What Is Your Level Of Alcohol Consumption? Moderate Wine [id number] Information not available 05/13/2020 Are You Currently Employed? No [id number] Information not available 05/13/2020 Which Illicit Or Recreational Drugs Have You Used? No [id number] Information not available 05/13/2020 Education 12 Information no t available 03/01/2015 Live Alone Or With Others? Alone Information not available 03/01/2015 Marital Status Informatio n not available 03/01/2015 How Many Years Have You Smoked Tobacco? 20 [id number] Information not available 05/13/2020 Sex: Unknown Functional [...] SNOMED-CT Code Diagnosis ICD10 Code Diagnosis Note [id number] [facility] [address] [place] [address] 03/01/2015 10:09:29 03/02/2015 11:29:26 Lumbar post-laminectomy syndrome 374318875 Lumbosacra l radiculitis 78926190 Lumbosacra l spondylosis without myelopathy 29303741 Enthesopat hy of hip region 40979752 93796 [facility] [address] [place] [place] [address] 03/08/2015 14:21:23 03/09/2015 09:25:14 Lumbosacral spondylosis without myelopathy 84078320 Enthesopat hy of hip region 78386487 Lumbosacra l radiculitis 35517333 Lumbar post-laminectomy syndrome 520625379 24723 [facility] [address] [place] [address] 04/11/2015 14:50:34 04/12/2015 09:13:56 Lumbosacral spondylosis without myelopathy 82219864 Enthesopat hy of hip region 15746868 Lumbosacra l radiculitis 78306287 Lumbar post-laminectomy syndrome 734929926 65210 Johnny Montanez MD [facility] [address] [place] [address] 08/16/2015 10:11:47 08/16/2015 14:46:00 Lumbosacral spondylosis without myelopathy 68855893 M47.817 Enthesopat hy of hip region 63416995 M76.9 Lumbosacra l radiculitis 26777531 M54.17 Lumbar post-laminectomy syndrome 887727345 M96.1 Disorder o f bursa of shoulder region 20441321 M25.812 07239 Johnny Montanez MD PAIN OFFICE [address] [place] [address] 09/01/2015 14:03:53 09/01/2015 15:37:11 Lumbosacral spondylosis without myelopathy 11147868 M47.817 Enthesopat hy of hip region 66036795 M76.9 Disorder o f bursa of shoulder region 72648594 M25.812 Lumbosacra l radiculitis 06578921 M54.17 Lumbar post-laminectomy syndrome 158432328 M96.1 56135 Johnny Montanez MD [facility] [address] [place] [address] 09/07/2015 09:36:32 09/08/2015 14:24:03 Lumbosacral spondylosis without myelopathy 76288581 M47.817 Enthesopat hy of hip region 52647369 M70.61 Disorder o f bursa of shoulder region 48827636 M25.812 Lumbosacra l radiculitis 70035990 M54.17 Lumbar post-laminectomy syndrome 220899427 M96.1 14789 Johnny Montanez MD [facility] [address] [place] [address] 09/13/2015 10:08:37 09/13/2015 15:13:45 Lumbosacral spondylosis without myelopathy 91219215 M47.817 Lumbar post-laminectomy syndrome 265105585 M96.1 Enthesopat hy of hip region 87996524 M70.61 Disorder o f bursa of shoulder region 69786785 M25.812 Lumbosacra l radiculitis 45981224 M54.17 75445 Johnny Montanez MD [facility] [address] [place] [address] 09/23/2015 08:47:47 09/27/2015 11:36:33 Lumbosacral spondylosis without myelopathy 27596947 M47.817 Lumbar post-laminectomy syndrome 313398748 M96.1 Lumbosacra l radiculitis 76602875 M54.17 Muscle pain 48528119 M79 .1 Enthesopat hy of hip region 55746471 M70.61 Disorder o f bursa of shoulder region 55146018 M25.812 Health Concerns Section Related Observation LastModified by Organization Detai ls LastModified Time None Recorded Concern Status LastModified by Organization Details LastModified Time None Recorded Advance Directives Directive None Recorded Payers Encounter Date Sequence Insurance Name Policy Number Policy Blanco Covered Member ID Blanco Member ID Guarantor Name 08/16/2015 1 MEDICARE [place]: [employer] Brenda M Andras [id number] Brenda Andras 08/16/2015 2 [facility] (MEDICARE SUPPLEMENT) Brenda Andras [id number] Brenda Andras 09/01/2015 1 MEDICARE [place]: [employer] Brenda M Andras [id number] Brenda Andras 09/01/2015 2 [facility] (MEDICARE SUPPLEMENT) Brenda Andras [id number] Brenda Andras 09/07/2015 1 MEDICARE [place]: [employer] Brenda M Andras [id number] Brenda Andras 09/07/2015 2 [facility] (MEDICARE SUPPLEMENT) Brenda Andras [id number] Brenda Andras 09/13/2015 1 [place] [employer] Brenda M Andras [id number] Brenda Andras 09/13/2015 2 [facility] (MEDICARE SUPPLEMENT) Brenda Andras [id number] Brenda Andras 09/23/2015 1 MEDICARE [place]: [employer] Brenda M Andras [id number] Brenda Andras 09/23/2015 2 [facility] (MEDICARE SUPPLEMENT) Brenda Andras [id number] Brenda Andras Notes Date Note Type [...] in her left shoulder. Johnny Montanez MD [address] [facility] [address], [place], [address], [facility] - [facility] 08/18/2015 09:24:14 09/01/2015 text/html She is here for a follow up after a left shoulder X-ray. 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 She states she has seen a PA at [facility] and she recommended a total knee [...] an issue presently. Johnny Montanez MD [address] [facility] , [address], [place], [address], [facility] - [facility] 09/02/2015 11:09:45 09/07/2015 text/html She is here for a trial of right median branch block under fluoroscopic guidance at L4, L5and S1 medial branches. Johnny Montanez MD [address] [facility] , [address], [place], [address], [facility] - [facility] 09/08/2015 15:45:44 09/13/2015 text/html [...] with the RF. Johnny Montanez MD [address] , [address], [place], [address], [facility] - [facility] 09/14/2015 14:17:41 09/23/2015 text/html She is here for a follow up. She states she is noticing pain in her muscles in the low back and she had difficulty sleeping due to pain and muscle spasms since the radiofrequency ablation. She has been applying ice. She has seen Tamika at [facility] and has started synvisc injections for [...] bladder or bowel incontinence. Johnny Montanez MD [address] [place] [address] , [address], [place], [address], [facility] 10/03/2015 08:52:43 OBGyn Episode No OBEpisode recorded.
--- OUTSIDE RECORDS SUMMARY | 2024-08-27 18:48 | XMS_ITS | Data Portability ---
Author Organization [place] - [facility], _[facility] Address [address] [place] [id number] Assessment Encounter Date Assessment Date Assessment LastModified [...] drug allergies Vitals Date Recorded Body temperature Provider Name a nd Address Organization Details Last Updated DateTime 12/01/2017 97 [degF] Yun Harrell MD [address] [place] [address], [phone], [facility] 12/01/2017 16:35:39 Date Recorded Heart rate Provider Name an d Address Organization Details Last Updated DateTime 12/01/2017 65 /min Yun Harrell MD [address] [place] [address], [address], [place] [facility] 12/01/2017 16:35:41 Date Recorded Oxygen saturation Oxygen saturation in Arterial blood by Pulse oximetry Provider Name and Address Organization Details Last Updated DateTime 12/01/2017 96 % 96 % Yun Harrell MD [address] [place] [address], [phone], [place] [facility] 12/01/2017 16:35:47 Date Recorded Body temperature Provider Name a nd Address Organization Details Last Updated DateTime 12/02/2017 98.5 [degF] GUILHERME HALL NP [address] [place] [address], [phone], [place] [facility] 12/02/2017 10:17:07 Date Recorded Heart rate Provider Name an d Address Organization Details Last Updated DateTime 12/02/2017 80 /min GUILHERME HALL NP [address] [place], [address], [place] [facility] 12/02/2017 10:17:14 Date Recorded Respiratory rate Provider Name a nd Address Organization Details Last Updated DateTime 12/02/2017 18 /min GUILHERME HALL NP [address] [place], [address], [place] [facility] 12/02/2017 10:17:16 Date Recorded Body temperature Provider Name a nd Address Organization Details Last Updated DateTime 12/04/2017 99.7 [degF] GUILHERME HALL NP [address] [place], [address], [place] [facility] 12/04/2017 09:46:13 Date Recorded Heart rate Provider Name an d Address Organization Details Last Updated DateTime 12/04/2017 68 /min GUILHERME HALL NP [address] [place], [address], [place] [facility] 12/04/2017 09:46:20 Date Recorded Respiratory rate Provider Name a nd Address Organization Details Last Updated DateTime 12/04/2017 18 /min GUILHERME HALL NP [address] [place], [address], [place] [facility] 12/04/2017 09:46:23 Date Recorded Body temperature Provider Name a nd Address Organization Details Last Updated DateTime 12/05/2017 97.8 [degF] GUILHERME HALL NP [address] [place], [address], [place] [facility] 12/05/2017 10:18:59 Date Recorded Heart rate Provider Name an d Address Organization Details Last Updated DateTime 12/05/2017 80 /min GUILHERME HALL NP [address] [place], [address], [place] [facility] 12/05/2017 10:19:12 Date Recorded Body weight Provider Name an d Address Organization Details Last Updated DateTime 12/06/2017 83568.52 g GUILHERME HALL NP [address] [place], [address], [place] [facility] 12/06/2017 09:39:03 Date Recorded Body temperature Provider Name a nd Address Organization Details Last Updated DateTime 12/06/2017 97.8 [degF] GUILHERME HALL NP [address] [place] [address], [address], [place] [facility] 12/06/2017 09:39:14 Date Recorded Heart rate Provider Name an d Address Organization Details Last Updated DateTime 12/06/2017 72 /min GUILHERME HALL NP [address] [place] [address], [address], [place] [facility] 12/06/2017 10:07:29 Date Recorded Oxygen saturation Oxygen saturation in Arterial blood by Pulse oximetry Provider Name and Address Organization Details Last Updated DateTime 12/06/2017 96 % 96 % GUILHERME HALL NP [address] [place] [address], [address], [place] [facility] 12/06/2017 10:07:34 Date Recorded Systolic blood pressure Diastolic blood pressure Provider Name and Address Organization Details Last Updated DateTime 12/01/2017 143 mm[Hg] 79 mm[Hg] Yun Harrell MD [address] [place] [address], [phone], [place] [facility] 12/01/2017 16:35:36 Date Recorded Systolic blood pressure Diastolic blood pressure Provider Name and Address Organization Details Last Updated DateTime 12/02/2017 125 mm[Hg] 59 mm[Hg] GUILHERME HALL NP [address] [place] [address], [address], [place] [facility] 12/02/2017 10:16:59 Date Recorded Systolic blood pressure Diastolic blood pressure Provider Name and Address Organization Details Last Updated DateTime 12/04/2017 103 mm[Hg] 57 mm[Hg] GUILHERME HALL NP [address] [place] [address], [address], [place] [facility] 12/04/2017 09:45:06 Date Recorded Systolic blood pressure Diastolic blood pressure Provider Name and Address Organization Details Last Updated DateTime 12/05/2017 147 mm[Hg] 78 mm[Hg] GUILHERME HALL NP [address] [place] [address], [address], [place] - [facility] 12/05/2017 10:18:56 Date Recorded Systolic blood pressure Diastolic blood pressure Provider Name and Address Organization Details Last Updated DateTime 12/06/2017 99 mm[Hg] 41 mm[Hg] GUILHERME HALL NP [address] [place], [address], [facility] 12/06/2017 09:38:58 Social History Question Answer Notes LastModified by Organizat ion Details LastModified Time Tobacco Smoking Status Former Smoker Yun Harrell MD [address] [place], [address], [facility] 12/01/2017 16:36:41 What Is Your [...] SNOMED-CT Code Diagnosis ICD10 Code Diagnosis Note [id number] Yun Harrell MD [facility] [address] [place] [address] 12/01/2017 16:22:36 12/06/2017 14:56:06 Spinal stenosis of lumbar region 72854559 M48.061 s/p decompress ion, pain is controlled on tylenol, dilaudid, fentanyl patch, PT, OT, wound care Essential hypertension 16232625 I10 cont amlodipin, losartan Hyperlipidemia 98265518 E78.5 cont lipitor Gastroesop hageal reflux disease without esophagitis 307168288 K21.9 cont PPI Constipation 77885593 K5 9.00 colace, senna, miralax ,enema if needed Depressive disorder 3548 9007 F32.9 cont zoloft, trazodone [id number] GUILHERME HALL NP [address] [address] 12/02/2017 10:05:52 12/04/2017 11:11:45 Spinal stenosis of lumbar region 13965014 M48.061 s/p decompress ion, pain is controlled on tylenol, dilaudid, fentanyl patch, cont with PT and OT here; incision is covered with steri stips and DPD Essential hypertension 72165223 I10 cont amlodipin, losartango od BP control Hyperlipidemia 79957662 E78.5 cont lipitor Gastroesop hageal reflux disease without esophagitis 926232344 K21.9 cont PPI Constipation 65551371 K5 9.00 good BM; cont current med regiment Depressive disorder 3548 9007 F32.9 cont zoloft, trazodone [id number] ERICH [address] [address] 12/04/2017 09:44:05 12/06/2017 14:28:20 Spinal stenosis of lumbar region 08349805 M48.061 s/p decompress ion, pain is controlled on tylenol, dilaudid, fentanyl patch, cont with PT and OT here; incision is covered with steri stips. Essential hypertension 53472795 I10 cont amlodipin, losartango od BP control Hyperlipidemia 72679432 E78.5 cont lipitor Gastroesop hageal reflux disease without esophagitis 691377083 K21.9 cont PPI Constipation 23440078 K5 9.00 good BM; cont current med regiment Depressive disorder 3548 9007 F32.9 cont zoloft, trazodone Leukocytosis 092264501 D 72.829 wbc 12; pt has a fever; will get UA [id number] GUILHERME HALL NP [address] [address] 12/05/2017 10:17:51 12/10/2017 16:37:53 Spinal stenosis of lumbar region 85166281 M48.061 s/p decompress ion, pain is controlled on tylenol, dilaudid, fentanyl patch, cont with PT and OT here; incision is covered with steri stips.pt jose be d/c home in a few days Leukocytosis 299719815 D 72.829 UA neg, afebrile; cbc pending from today Essential hypertension 56675305 I10 cont amlodipine , losartango od BP control Constipation 78393469 K5 9.00 good BM; cont current med regiment [id number] GUILHERME HALL NP [facility] [address] [place] [address] 12/06/2017 09:34:53 12/13/2017 12:45:01 Spinal stenosis of lumbar region 22403663 M48.061 s/p decompress ion, pain is controlled on tylenol, dilaudid, fentanyl patch,will give rx for fentalyn pathc #4 to go home withMass pat checkedf/u wit [place] in 8 weeks Essential hypertension 48906900 I10 cont amlodipin, losartan Hyperlipidemia 46241575 E78.5 cont lipitor Gastroesop hageal reflux disease without esophagitis 674423036 K21.9 cont PPI Constipation 21332867 K5 9.00 colace, senna, miralax ,enema if needed Depressive disorder 3548 9007 F32.9 cont zoloft, trazodone Health Concerns Section Related Observation LastModified by Organization Detai ls LastModified Time None Recorded Concern Status LastModified by Organization Details LastModified Time None Recorded Advance Directives Directive None Recorded Payers Encounter Date Sequence Insurance Name Policy Number Policy Blanco Covered Member ID Blanco Member ID Guarantor Name 12/01/2017 1 [place] [employer] Brenda M Andras [id number] Brenda Andras 12/02/2017 1 [place] [employer] Brenda M Andras [id number] Brenda Andras 12/04/2017 1 [place] [employer] Brenda M Andras [id number] Brenda Andras 12/04/2017 2 [facility] - MEDICARE ENHANCE (INDEMNITY PLAN) Brenda Andras [id number] Brenda Andras 12/05/2017 1 [place] [employer] [employer] Brenda M Andras [id number] Brenda Andras 12/05/2017 2 [facility] - MEDICARE ENHANCE (INDEMNITY PLAN) Brenda Andras [id number] Brenda Andras 12/06/2017 1 [place] [facility] Brenda M Andras [id number] Brenda Andras 12/06/2017 2 [facility] - MEDICARE ENHANCE (INDEMNITY PLAN) Brenda Andras [id number] Brenda Andras Notes Date Note Type Note Provider Name and Address Organization Details Recorded Time 12/01/2017 text/html seen for admission- came from [facility] where pt had L3-S1 decompression.Pt tolerated procedure well, pain is controlled on current fentanyl patch and dilaudidPt came to for further care Yun Harrell MD [address] [place] [address], [address], [facility] 12/01/2017 16:43:01 12/02/2017 text/html seeing pt today for f/u; continues to work with therapy here, making progress. Pt came from [facility] where pt had L3-S1 decompression.Pt tolerated procedure well, pain is controlled on current fentanyl patch and dilaudid. GUILHERME HALL NP [address] [place] [address], [address], [facility] 12/02/2017 10:21:10 12/04/2017 text/html seeing pt today for f/u; continues to work with therapy here, making progress. Pt came from [facility] where pt had L3-S1 decompression.Pt tolerated procedure well, pain is controlled on current fentanyl patch and dilaudid. GUILHERME HALL NP [address] [place], [address], [facility] 12/04/2017 12:59:51 12/05/2017 text/html seeing pt today for f/u; continues to work with therapy here, making progress.Ua was obtained yesterday; pt had elevated wbc Pt came from [facility] where pt had L3-S1 decompression.Pt tolerated procedure well, pain is controlled on current fentanyl patch and dilaudid. GUILHERME HALL NP [address] [place], [address], [facility] - [facility] 12/07/2017 15:19:06 12/06/2017 text/html seeing pt today for d/c; pt has done well with therapy here, made progress, will be d/c home tomorrow. GUILHERME HALL NP [address] [place] [address] [place], [address], [facility] - [facility] 12/08/2017 11:15:02 OBGyn Episode No OBEpisode recorded.
--- OUTSIDE RECORDS SUMMARY | 2024-08-27 18:48 | XMS_ITS | Patient Health Record ---
Author Organization [facility] Address [address] [place] [address] Care Team Providers Care Machine Stitcher Name Role Phone Ling Middleton DNP Primary [...] a day for 30 day(s) Active Ipratropium [place] 0.06 % 2 sprays in e ach nostril Nasally Three times a day for 4 day(s) Active Amoxicillin 500 MG 1 capsule Orally NEEDED FOR DENTIST Active Calcium 500 MG 1 tablet Orally Once a day Active Tramadol & Dietary Manage Prod Active Vitamin D3 Ultra Potency 38442 UNIT 1 tablet Orally as directed Active [...] Notes Problem Rectal bleeding (K62.5) Active confirmed 66032477 Problem Gastro-esophagea l reflux disease without esophagitis (K21.9) Active confirmed 598904098 Problem Cough (R05) Active confirmed 82645940 Problem Urinary incontinence, unspecified type (R32) Active confirmed 664541395 PLAN OF TREATMENT Pending Test Test Name Order Date XR GI SERIES 07/14/2015 Insurance Providers Payer Name Payer Address Payer Phone Subscriber Number Group Number Insured Name Patient Relationship to Insured Coverage Start Date Coverage End Date MEDICARE OF [place] [address] [place] [address] [phone] [id number] ANDKAY AVILES Self - patient is the insured [employer] [address] [place] [phone] [id number] KAY COLLINS Self - patient is the insured MEDICAL (GENERAL) HISTORY Medical History History ICD Code EGD/colonoscopy 01/03/2006. No evidence of Morse's esophagus. Hyperplastic colon polyp. Seasonal allergic rhinitis hypertension hypercholesterolemia scoliosis arthritis depression Surgical History Surgery Date(Month/Year) Vocal cord polyp 2006 Multiple back and neck surgeries rotator cuff surgery both knee replacement left
--- OUTSIDE RECORDS SUMMARY | 2024-08-27 18:49 | XMS_ITS ---
Author Organization [facility] Address [address], [place] [id number] Care Team Providers Care Bottle And Glass Inspector Name Role Phone SHANDRA MCDONALD Primary Care [...] Active Encounters Encounter Location Date Provider Diagnosis [address] [id number] 01/22/2024 SHANDRA MCDONALD Sacroiliitis, not elsewhere classified [...] * JACKIE COLLINSOB:[birth year] (88 yo F)Acc No.[id number]:01/22/2024 Patient:??KAY COLLINS :1935?Age:88 Y?Sex:Fe male Phone: Address:[address] , [address] , [place] [address] * Refills?? Refill oxyCODONE HCl Tablet, 5 [...]
== END 2024-08-27 17:05 | disposition home or self-care (01) ==
LOC: HO.HMCFM 14:52
PROVIDERS: PCP Physician Assistant; Visit Provider Physician Assistant
DX: F33.9 Major depressive disorder, recurrent, unspecified (principal); F41.1 Generalized anxiety disorder; M96.1 Postlaminectomy syndrome, not elsewhere classified

== ENCOUNTER → 2024-08-27 14:52 | Outpatient (BNVA) | payer OTHER, SELFPAY | PROVIDERS: PCP Physician Assistant; Visit Provider Physician Assistant ==

== ENCOUNTER 2024-09-01 14:51 | Outpatient (REF) | payer OTHER, SELFPAY ==
--- NOTE | ~2024-09-01 | US_ITS ---
EXAMINATION: US LOWER EXTREMITY VEINS BILATERAL HISTORY: R60.0 - Localized edema COMPARISON: There are no prior studies for comparison. TECHNIQUE: Duplex and color Doppler sonographic examination of the deep venous system of the bilateral lower extremities was performed. FINDINGS: The right common femoral, superficial femoral, and popliteal veins are patent demonstrating normal compressibility, spontaneous flow, and augmentation. There is a normal color and spectral Doppler waveform appearance of the visualized deep venous system above the knee. The posterior tibial and peroneal veins are patent. The left common femoral, superficial femoral, and popliteal veins are patent demonstrating normal compressibility, spontaneous flow, and augmentation. There is a normal color and spectral Doppler waveform appearance of the visualized deep venous system above the knee. The posterior tibial and peroneal veins are patent. US/US venous duplex LE BI IMPRESSION: No evidence of acute DVT in the bilateral lower extremities. Electronically signed by: Rommel Zimmerman MD 09/01/2024 03:44 PM EST
--- OUTSIDE RECORDS SUMMARY | 2024-09-01 14:54 | XMS_ITS | Data Portability ---
Author Organization [facility] Pain Managem RONAN rodriguez PAIN OFFICE Address [address] [facility] [address] [place] [address] Care Team Providers Care Physical Education Instructor Name Role Phone SHALA DELGADO Referring Provider ANISHA RALPH Primary Care Provider Assessment Encounter [...] booked for the same. She needs a hearse driver on the day of the procedure. [...] [id number], [address] [place], [address], 6 08:56:14 Flector 1.3 % transder mal 12 hour patch 2015 016 [email or web address] [id number], [address] [place], [address], 6 11:36:11 Patient TargetsNo targets recorded. Patient Instructions Encounter Date Encounter Id Patient Instructions Last Modified By Organization Details Last Modified Time 08/16/2015 [id number] She was advised against bed rest lasting longer than four days and to continue activities as tolerated. [email or web address] Not available 08/16/2015 13:04:51 09/01/2015 [id number] She was advised against bed rest lasting longer than four days and to continue activities as tolerated. [email or web address] Not available 09/01/2015 15:28:37 09/07/2015 [id number] She was advised against bed rest lasting longer than four days and to continue activities as tolerated. [email or web address] Not available 09/08/2015 14:18:24 09/13/2015 [id number] She was advised against bed rest lasting longer than four days and to continue activities as tolerated. [email or web address] Not available 09/13/2015 14:59:45 09/23/2015 [id number] She was advised against bed rest lasting longer than four days and to continue activities as tolerated. [email or web address] Not available 09/27/2015 10:03:45 Reason for Referral None Reported. Results Created Date Observation Date Name Description Value Unit Range Abnormal Flag Note LastModifiedBy Organization Detail LastModifiedTime 08/22/19 16 08/22/2015 x-ray , shoul lissette, 2 views No observ ation record ed. [facility] [address] [place] [address], [place], [address], 09/01/2015 15:28:37 Result Notes None recorded. Problems Name Problem SNOMED Code Status Onset Date Resolution Date Notes Provider Name and Address Organization Details Recorded Time Enthesopathy of hip region 33176324 Active Johnny henning MD [address] , [address], [place], [address], [place] [facility] 6 11:36:10 Lumbosacral spondylosis without myelopathy 30299107 Active Johnny henning MD [address] , [address], [place], [address], [place] [facility] 6 11:36:10 Lumbar post-laminecto my syndrome 030391623 Active Johnny henning MD [address] , [address], [facility] [place], [address], [place] [facility] 6 11:36:10 Lumbosacral radiculitis 83413551 Jillian henning MD [address] , [address], [facility] [place], [address], [place] [facility] 6 11:36:10 Disorder of bursa of shoulder region 22918246 Jillian henning MD [address] , [address], [place], [address], [place] [facility] 6 11:36:11 Muscle pain 95408375 Active Johnny henning MD [address] , [address], [place], [address], [place] [facility] 6 11:36:10 Problem Notes None recorded. Procedures Surgical History Date Name Laterality Status Provider Name and Address Organization Details Recorded Time 09/13/19 16 Radiofrequency of Lumbar/Sacral medial branches supplying the facets under fluoroscopic guidance completed Johnny Montanez MD [address] , [address], [place], [address], [place] [facility] 09/14/2015 14:17:33 09/07/19 16 Lumbar median branch block under fluroscopic guidance completed Johnny Montanez MD [address] , [address], [place], [address], [place] [facility] 09/08/2015 14:23:25 08/16/19 16 Fluoroscopic Guided Lumbar Facet Steroid Injections of levels completed Johnny Montanez MD [address] , [address], [place], [address], [place] [facility] 08/16/2015 13:09:50 03/08/20 15 Fluoroscopic Guided Lumbar Facet Steroid Injections of levels completed Johnny Montanez MD [address] [facility] [address], [place], [address], [place] [facility] 03/09/2015 09:22:44 [...] Time 08/22/2015 x-ray, shoulder, 2 views completed [facility] [address] [facility], [place], [address], 09/01/2015 15:28:37 Procedure Notes None recorded. Medical Equipment None Reported. Allergies No known drug allergies Medications Name Sig Start Date Stop Date Status Note LastModified by Organization Details LastModified Time fentanyl 50 mcg/hr pt72 active Not Available Not Available Not Available losartan potassium 100 mg tabs active [...] Not Available Not Available N ot Available amoxicillin 500 mg caps active Not [...] active Not Available Not Available Not Available amlodipine besylate 10 mg tabs active Not [...] % 182 mm[Hg] 72 mm[Hg] Anisha Mendieta [facility] 6 10:23:34 Date Recorded Oxygen saturation Oxygen saturation in Arterial blood by Pulse oximetry Heart rate Systolic blood pressure Diastolic blood pressure Provider Name and Address Organization Details Last Updated DateTime 6 97 % 97 % 76 /min 118 mm[Hg] 58 mm[Hg] Anisha Mendieta [facility] 6 15:00:38 Date Recorded [...] Smoker Quit x 40 years Not Available [facility] 05/13/2020 03:16:11 What Is Your Level Of Alcohol Consumption? Moderate Wine [id number] Information not available 05/13/2020 Are You Currently Employed? No [id number] Information not available 05/13/2020 Which Illicit Or Recreational Drugs Have You Used? No [id number] Information not available 05/13/2020 Education 12 Information no t available 03/01/2015 Live Alone Or With Others? Alone Information not available 03/01/2015 Marital Status Informatio n not available 03/01/2015 How Many Years Have You Smoked Tobacco? 20 [id number] Information not available 05/13/2020 Sex: Unknown Functional [...] SNOMED-CT Code Diagnosis ICD10 Code Diagnosis Note [id number] [facility] [address] [facility] [place] [address] 03/01/2015 10:09:29 03/02/2015 11:29:26 Lumbar post-laminectomy syndrome 648865678 Lumbosacra l radiculitis 48768550 Lumbosacra l spondylosis without myelopathy 05332482 Enthesopat hy of hip region 65270228 02281 [facility] [address] [facility] [place] [address] 03/08/2015 14:21:23 03/09/2015 09:25:14 Lumbosacral spondylosis without myelopathy 79649048 Enthesopat hy of hip region 39695131 Lumbosacra l radiculitis 65497513 Lumbar post-laminectomy syndrome 654353093 64610 [facility] [address] [facility] [place] [address] 04/11/2015 14:50:34 04/12/2015 09:13:56 Lumbosacral spondylosis without myelopathy 18832228 Enthesopat hy of hip region 38442505 Lumbosacra l radiculitis 04620622 Lumbar post-laminectomy syndrome 375530190 37605 Johnny Montanez MD [facility] PA[facility] [address] [facility] [place] [address] 08/16/2015 10:11:47 08/16/2015 14:46:00 Lumbosacral spondylosis without myelopathy 96890541 M47.817 Enthesopat hy of hip region 88014139 M76.9 Lumbosacra l radiculitis 37652420 M54.17 Lumbar post-laminectomy syndrome 474380666 M96.1 Disorder o f bursa of shoulder region 53219594 M25.812 56482 Johnny Montanez MD [facility] PAIN OFFICE [address] [facility] [place] [address] 09/01/2015 14:03:53 09/01/2015 15:37:11 Lumbosacral spondylosis without myelopathy 20862893 M47.817 Enthesopat hy of hip region 77699389 M76.9 Disorder o f bursa of shoulder region 82522894 M25.812 Lumbosacra l radiculitis 53579343 M54.17 Lumbar post-laminectomy syndrome 224228352 M96.1 66182 Johnny Montanez MD PAIN OFFICE [address] [place] [address] 09/07/2015 09:36:32 09/08/2015 14:24:03 Lumbosacral spondylosis without myelopathy 31067481 M47.817 Enthesopat hy of hip region 42662997 M70.61 Disorder o f bursa of shoulder region 79281118 M25.812 Lumbosacra l radiculitis 24757393 M54.17 Lumbar post-laminectomy syndrome 304268148 M96.1 67015 Johnny Montanez MD PAIN OFFICE [address] [place] [address] 09/13/2015 10:08:37 09/13/2015 15:13:45 Lumbosacral spondylosis without myelopathy 99287813 M47.817 Lumbar post-laminectomy syndrome 588945796 M96.1 Enthesopat hy of hip region 82784817 M70.61 Disorder o f bursa of shoulder region 38082076 M25.812 Lumbosacra l radiculitis 83082699 M54.17 27747 Johnny Montanez MD PAIN OFFICE [address] [place] [address] 09/23/2015 08:47:47 09/27/2015 11:36:33 Lumbosacral spondylosis without myelopathy 89518991 M47.817 Lumbar post-laminectomy syndrome 722798776 M96.1 Lumbosacra l radiculitis 10414123 M54.17 Muscle pain 03933075 M79 .1 Enthesopat hy of hip region 10588990 M70.61 Disorder o f bursa of shoulder region 13429037 M25.812 Health Concerns Section Related Observation LastModified by Organization Detai ls LastModified Time None Recorded Concern Status LastModified by Organization Details LastModified Time None Recorded Advance Directives Directive None Recorded Payers Encounter Date Sequence Insurance Name Policy Number Policy Blanco Covered Member ID Blanco Member ID Guarantor Name 08/16/2015 1 [place] [facility] Brenda M Andras [id number] Brenda Andras 08/16/2015 2 [facility] (MEDICARE SUPPLEMENT) Brenda Andras [id number] Brenda Andras 09/01/2015 1 [place] [facility] Brenda M Andras [id number] Brenda Andras 09/01/2015 2 [facility] (MEDICARE SUPPLEMENT) Brenda Andras [id number] Brenda Andras 09/07/2015 1 [place] [facility] Brenda M Andras [id number] Brenda Andras 09/07/2015 2 [facility] (MEDICARE SUPPLEMENT) Brenda Andras [id number] Brenda Andras 09/13/2015 1 [place] [facility] Brenda M Andras [id number] Brenda Andras 09/13/2015 2 [facility] (MEDICARE SUPPLEMENT) Brenda Andras [id number] Brenda Andras 09/23/2015 1 [place] [facility] Brenda M Andras [id number] Brenda Andras 09/23/2015 2 [facility] (MEDICARE SUPPLEMENT) Brenda Andras [id number] Brenda Andras Notes Date Note Type [...] in her left shoulder. Johnny Montanez MD [address] [place] [address] , [address], [place], [address], [facility] - [facility] 08/18/2015 09:24:14 09/01/2015 text/html She is here for a follow up after a left shoulder X-ray. 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 She states she has seen a PA at [facility] and she recommended a total knee [...] an issue presently. Johnny Montanez MD [address] [facility] , [address] [address], [place], [address], [facility] 09/02/2015 11:09:45 09/07/2015 text/html She is here for a trial of right median branch block under fluoroscopic guidance at L4, L5and S1 medial branches. Johnny Montanez MD [address] [facility] , [address], [place], [address], [facility] Management 09/08/2015 15:45:44 09/13/2015 text/html She [...] with the RF. Johnny Montanez MD [address] [facility] , [address], [place], [address], [employer] [facility] Management 09/14/2015 14:17:41 09/23/2015 text/html She is here for a follow up. She states she is noticing pain in her muscles in the low back and she had difficulty sleeping due to pain and muscle spasms since the radiofrequency ablation. She has been applying ice. She has seen [facility] and has started synvisc injections [...] bladder or bowel incontinence. Johnny Montanez MD [address] [place] [address] , [address], [place], [address], [facility] 10/03/2015 08:52:43 OBGyn Episode No OBEpisode recorded.
--- OUTSIDE RECORDS SUMMARY | 2024-09-01 14:54 | XMS_ITS | Data Portability ---
Author Organization [place] [facility], _[facility] Address [address] [place] [address] Assessment Encounter Date Assessment Date Assessment LastModified [...] 143 mm[Hg] 79 mm[Hg] Yun Harrell MD [address] [place] [address], [address] [place], [place] - [facility] 8 16:35:36 Date Recorded Body temperature Heart rate Respiratory rate Systolic blood pressure Diastolic blood pressure Provider Name and Address Organization Details Last Updated DateTime 8 98.5 [degF] 80 /min 18 /min 125 mm[Hg] 59 mm[Hg] GUILHERME Cazares NP [address] [place], [address] [place] [address] [facility] 8 10:16:59 Date Recorded Body temperature Heart rate Respiratory rate Systolic blood pressure Diastolic blood pressure Provider Name and Address Organization Details Last Updated DateTime 8 99.7 [degF] 68 /min 18 /min 103 mm[Hg] 57 mm[Hg] GUILHERME Cazares NP [address] [place] [address], [address] [place] [address] [facility] 8 09:45:06 Date Recorded Body temperature Heart rate Systolic blood pressure Diastolic blood pressure Provider Name and Address Organization Details Last Updated DateTime 12/05/2017 97.8 [degF] 80 /min 147 mm[Hg] 78 mm[Hg] GUILHERME HALL NP [address] [place] [address], [address] [facility] 12/05/2017 10:18:56 Date Recorded Body weight Body temperature Heart rate Oxygen saturation Oxygen saturation in Arterial blood by Pulse oximetry Systolic blood pressure Diastolic blood pressure Provider Name and Address Organization Details Last Updated DateTime 8 45892.5 2 g 97.8 [degF] 72 /min 96 % 96 % 99 mm[Hg] 41 mm[Hg] GUILHERME Cazares NP [address] [place] [address], [address] [place] [address] [facility] 8 09:38:58 Social History Question Answer Notes LastModified by Organizat ion Details LastModified Time Tobacco Smoking Status Former Smoker Yun Harrell MD [address] [place] [address], [address], [facility] 12/01/2017 16:36:41 What Is [...] SNOMED-CT Code Diagnosis ICD10 Code Diagnosis Note [id number] Yun Harrell MD [facility] [address] [place] [address] 12/01/2017 16:22:36 12/06/2017 14:56:06 Spinal stenosis of lumbar region 49936158 M48.061 s/p decompress ion, pain is controlled on tylenol, dilaudid, fentanyl patch, PT, OT, wound care Essential hypertension 70881971 I10 cont amlodipin, losartan Hyperlipidemia 04922447 E78.5 cont lipitor Gastroesop hageal reflux disease without esophagitis 934554403 K21.9 cont PPI Constipation 58669919 K5 9.00 colace, senna, miralax ,enema if needed Depressive disorder 3548 9007 F32.9 cont zoloft, trazodone [id number] GUILHERME HALL NP [place] [address] [place] [address] 12/02/2017 10:05:52 12/04/2017 11:11:45 Spinal stenosis of lumbar region 10334264 M48.061 s/p decompress ion, pain is controlled on tylenol, dilaudid, fentanyl patch, cont with PT and OT here; incision is covered with steri stips and DPD Essential hypertension 04658058 I10 cont amlodipin, losartango od BP control Hyperlipidemia 23985265 E78.5 cont lipitor Gastroesop hageal reflux disease without esophagitis 346926208 K21.9 cont PPI Constipation 44073566 K5 9.00 good BM; cont current med regiment Depressive disorder 3548 9007 F32.9 cont zoloft, trazodone [id number] GUILHERME HALL NP [facility] [address] [place] [address] 12/04/2017 09:44:05 12/06/2017 14:28:20 Spinal stenosis of lumbar region 56078806 M48.061 s/p decompress ion, pain is controlled on tylenol, dilaudid, fentanyl patch, cont with PT and OT here; incision is covered with steri stips. Essential hypertension 23666667 I10 cont amlodipin, losartango od BP control Hyperlipidemia 18683155 E78.5 cont lipitor Gastroesop hageal reflux disease without esophagitis 576441002 K21.9 cont PPI Constipation 79892698 K5 9.00 good BM; cont current med regiment Depressive disorder 2831 9007 F32.9 cont zoloft, trazodone Leukocytosis 913023046 D 72.829 wbc 12; pt has a fever; will get UA [id number] GUILHERME HALL NP [facility] House [address] [place] [address] 12/05/2017 10:17:51 12/10/2017 16:37:53 Spinal stenosis of lumbar region 34444448 M48.061 s/p decompress ion, pain is controlled on tylenol, dilaudid, fentanyl patch, cont with PT and OT here; incision is covered with steri stips.pt jose be d/c home in a few days Leukocytosis 881391702 D 72.829 UA neg, afebrile; cbc pending from today Essential hypertension 58026852 I10 cont amlodipine , losartango od BP control Constipation 57458470 K5 9.00 good BM; cont current med regiment [id number] GUILHERME HALL NP [facility] [address] [place] [address] 12/06/2017 09:34:53 12/13/2017 12:45:01 Spinal stenosis of lumbar region 95604306 M48.061 s/p decompress ion, pain is controlled on tylenol, dilaudid, fentanyl patch,will give rx for fentalyn pathc #4 to go home withMass pat checkedf/u wit [place] in 8 weeks Essential hypertension 80420844 I10 cont amlodipin, losartan Hyperlipidemia 19529760 E78.5 cont lipitor Gastroesop hageal reflux disease without esophagitis 663249033 K21.9 cont PPI Constipation 28638119 K5 9.00 colace, senna, miralax ,enema if needed Depressive disorder 2289 9007 F32.9 cont zoloft, trazodone Health Concerns Section Related Observation LastModified by Organization Detai ls LastModified Time None Recorded Concern Status LastModified by Organization Details LastModified Time None Recorded Advance Directives Directive None Recorded Payers Encounter Date Sequence Insurance Name Policy Number Policy Blanco Covered Member ID Blanco Member ID Guarantor Name 12/01/2017 1 [place] [employer] Brenda M Andras [id number] Brenda Andras 12/02/2017 1 [place] [employer] Brenda M Andras [id number] Brenda Andras 12/04/2017 1 [place] [facility] Brenda M Andras [id number] Brenda Andras 12/04/2017 2 [facility] - MEDICARE ENHANCE (INDEMNITY PLAN) Brenda Andras [id number] Brenda Andras 12/05/2017 1 [place] [employer] Brenda M Andras [id number] Brenda Andras 12/05/2017 2 [facility] - MEDICARE ENHANCE (INDEMNITY PLAN) Brenda Andras [id number] Brenda Andras 12/06/2017 1 [place] [facility] Brenda M Andras [id number] Brenda Andras 12/06/2017 2 [facility] - MEDICARE ENHANCE (INDEMNITY PLAN) Brenda Andras [id number] Brenda Andras Notes Date Note Type Note Provider Name and Address Organization Details Recorded Time 12/01/2017 text/html seen for admission- [facility] L3-S1 decomp[facility].Pt tolerated procedure well, pain is controlled on current fentanyl patch and dilaudidPt came to for further care Yun Harrell MD [address] [place], [address], [facility] 12/01/2017 16:43:01 12/02/2017 text/html seeing pt today for f/u; continues to work with therapy here, making progress. [facility] had L3-S1 decompression.Pt tolerated procedure well, pain is controlled on current fentanyl patch and dilaudid. GUILHERME HALL NP [address] [place], [address], [facility] 12/02/2017 10:21:10 12/04/2017 text/html seeing pt today for f/u; continues to work with therapy here, making progress. [facility] had L3-S1 decompression.Pt tolerated procedure well, pain is controlled on current fentanyl patch and dilaudid. GUILHERME HALL NP [address] [place], [address], [facility] 12/04/2017 12:59:51 12/05/2017 text/html seeing pt today for f/u; continues to work with therapy here, making progress.Ua was obtained yesterday; pt had elevated wbc Pt [facility] had L3-S1 decompression.Pt tolerated procedure well, pain is controlled on current fentanyl patch and dilaudid. GUILHERME HALL NP [address] [place], [address], [facility] - [facility] 12/07/2017 15:19:06 12/06/2017 text/html seeing pt today for d/c; pt has done well with therapy here, made progress, will be d/c home tomorrow. GUILHERME HALL NP [address] [place], [address], [facility] - [facility] 12/08/2017 11:15:02 OBGyn Episode No OBEpisode recorded.
--- OUTSIDE RECORDS SUMMARY | 2024-09-01 14:54 | XMS_ITS ---
Author Organization Kasey Lea Address Unknown Problems Problem Status Start Date End Date ENCOUNTER FOR OTHER SPECIFIE D SURGICAL AFTERCARE (Primary) (Z48.89 - ICD-10-CM) ACTIVE 11/29/2017 MUSCLE SPASM OF BACK (M62.830 - ICD-10-CM) ACTIVE 11/29/2017 UNSPECIFIED OSTEOARTHRITIS, UNSPECIFIED SITE (M19.90 - ICD-10-CM) ACTIVE 11/29/2017 ESSENTIAL (PRIMARY) HYPERTENSION (I10 - ICD-10-CM) ACT SUSAN 11/29/2017 GASTRO-ESOPHAGEAL REFLUX DIS EASE WITHOUT ESOPHAGITIS (K21.9 - ICD-10-CM) ACTIVE 11/29/2017 HYPERLIPIDEMIA, UNSPECIFIED (E78.5 - ICD-10-CM) ACTIVE 11/29/2017 SPINAL STENOSIS, SITE UNSPECIFIED (M48.00 - ICD-10-CM) ACTIVE 11/29/2017 MAJOR DEPRESSIVE DISORDER, S ISHAAN EPISODE, UNSPECIFIED (F32.9 - ICD-10-CM) ACTIVE 11/29/2017 INSOMNIA, UNSPECIFIED (G47.00 - ICD-10-CM) ACTIVE 11/29/2017 ANXIETY DISORDER, UNSPECIFIED (F41.9 - ICD-10-CM) ACTI VE 11/29/2017 MUSCLE WEAKNESS (GENERALIZED) (M62.81 - ICD-10-CM) ACT SUSAN 11/29/2017 ENCOUNTER FOR OTHER SPECIFIE D AFTERCARE (Z51.89 - ICD-10-CM) ACTIVE 11/29/2017 OTHER DORSALGIA (M54.89 - ICD-10-CM) ACTIVE 10/2017 Encounters Encounter Performer Performer Role Encounter Diagnoses Location Date Discharge - Discharged to home or self care - Private home/apt. with home health services [facility] 11/29/2017 01:55 pm EDT - 12/07/2017 11:40 am EDT Social History
== END 2024-09-01 14:52 | disposition home or self-care (01) ==
LOC: HO.US 14:51
PROVIDERS: PCP Physician Assistant; Visit Provider Physician Assistant
DX: R60.0 Localized edema (principal); I48.0 Paroxysmal atrial fibrillation
CPT/HCPCS: 93970

== ENCOUNTER → 2024-09-01 14:53 | Outpatient (BNV) | payer MEDICARE, OTHER, SELFPAY | PROVIDERS: PCP Physician Assistant; Visit Provider Radiology Diagnostic Radiology | DX: R60.0 Localized edema (principal) | CPT/HCPCS: 93970 ==

== ENCOUNTER 2024-09-07 13:15 | Outpatient (AMB) | payer OTHER, SELFPAY ==
--- NOTE | 2024-09-07 13:38 | AM.OFFVISNUR ---
Intake Visit Reasons: Evenity #2 Allergies bee pollen Allergy (Unknown, Verified 08/27/24 14:47) Unknown house dust mite Allergy (Unknown, Verified 08/27/24 14:47) Unknown adhesive tape Adverse Reaction (Intermediate, Verified 08/27/24 14:47) Rash Office Meds romosozumab-aqqg 210 mg/2.34 mL(105 mg/1.17 mL x2)subcutaneous syringe Performing Provider: Rommel Lopez MD Per[place] [facility] Administered by: Rosalinda Hines RN on 09/07/24 13:38 Dose Route Admin Location Dispensed Lot Number Expiration Date NDC Allied Health Instructor 210 mg subcut bilateral upper arms 2.34 mL [id number] 10/26/26 61986-385-36 AMGEN Comments: Consent form signed by patient. Pt tolerated injection well. Pt denies any adverse reactions with previous injections. Assessment & Plan Assessment & Plan Orders: Orders AMB Romosozumab Injection Patient Supplied Today M81.0 - Age-related osteoporosis without current pathological fracture Medications: New romosozumab-aqqg 210 mg (2.34 mL) subcut ONCE 2.34 mL 0RF M81.0 - Age-related osteoporosis without current pathological fracture Coding
== END 2024-09-07 13:33 | disposition home or self-care (01) ==
PROVIDERS: PCP Physician Assistant
DX: M81.0 Age-related osteoporosis without current pathological fracture (principal)

== ENCOUNTER → 2024-09-07 13:15 | Outpatient (BNVA) | payer OTHER, SELFPAY | PROVIDERS: PCP Physician Assistant | DX: M81.0 Age-related osteoporosis without current pathological fracture (principal) | CPT/HCPCS: 96372; J3111 ==

== ENCOUNTER 2024-09-23 12:49 | Outpatient (AMB) | payer MEDICARE, OTHER, SELFPAY ==
[2024-09-23 13:03] VITALS: BP 168/74; BMI 36.6
--- NOTE | 2024-09-23 13:03 | MHC.PC.OV ---
Vital Signs 09/23/24 13:03 09/23/24 13:14 Height 4 ft 10 in Weight 175 lb BMI 36.6 BP 168/74 H 156/78 H Blood Pressure Location Lt brachial Lt brachial Position Sitting Sitting Respiration 14 Pulse 82 Pulse Source Pulse Oximeter Pulse Oximetry (%) 99 Oxygen Delivery Method Room Air Intake Visit Reasons: med follow up/recheck? Intake Note: Medication follow up. Rn Gynecology stopped Metoprolol because of hair loss, and replaced with Atenolol. Insurance doesnt want to cover Gemetesa. Requesting medication for dementia. Allergies bee pollen Allergy (Unknown, Verified 08/27/24 14:47) Unknown house dust mite Allergy (Unknown, Verified 08/27/24 14:47) Unknown adhesive tape Adverse Reaction (Intermediate, Verified 08/27/24 14:47) Rash Medication List - Last Reconciled 09/23/24 by Allison Ham PA-C albuterol sulfate 90 mcg/actuation 2 puffs PO Q6H PRN amlodipine 5 mg PO DAILY atenolol 25 mg PO DAILY cholecalciferol (vitamin D3) 50 mcg PO DAILY fluticasone furoate-vilanterol 200-25 mcg/dose (Breo Ellipta) 1 ea inhalation DAILY fluticasone propionate 50 mcg/actuation 1 spray intranasal BID furosemide 20 mg PO QAM ipratropium bromide 2 sprays intranasal Q12H losartan 50 mg PO DAILY oxycodone 5 mg PO Q8H PRN 28 days oxycodone myristate CR-ER (Xtampza ER) 9 mg PO Q12H 28 days pantoprazole 40 mg PO DAILY@0630 rivaroxaban (Xarelto) 20 mg PO QPM 90 days romosozumab-aqqg (Evenity) 210 mg (2.34 mL) subcut .q month 12 months sertraline 100 mg PO DAILY trazodone 100 mg PO BEDTIME vibegron (Gemtesa) 75 mg PO DAILY walker A rolling walker with seat use daily As directed Tobacco use date assessed: 01/29/24 Dental Screening Dental Screen Date: 01/29/24 HPI med follow up/recheck? HPI Details Patient is an 88-year-old female who presents today for a follow up. She has a significant past medical history of hypertension, CKD, GERD, chronic pain disorder, s/p laminectomy syndrome, mood disorder, urge incontinence and AFib. She is accompanied today by her daughter on the phone. HEENT:feels like there could be wax in her left ear . At times it feels blocked. She is wearing her hearing aids. CV: bp today is 156/78. She is currently on amlodipine 5 mg, losartan 50 mg, and atenolol 50 mg. Compliant with Xarelto. Follows with cardiology. Bps at home wnl. Uro: Following with urology for right kidney cyst. We will repeat ultrasound in 1 year. PULM: She does have a hx of COPD. Musculoskeletal: She saw Dr. Lopez for her SI joint injection and it has helped. She states that he is going to do injections in the right knee. She is going to PT for her neck. She has been using Tylenol and oxycodone as prescribed. It does take the edge off But she has a lot of chronic and breakthrough pain. She is not a surgical candidate. At our last visit I trialed her on morphine extended release which she states she never picked this up because it was not covered. She is currently on Xtampza 9 mg twice a day. -Seeing back specialist in [place] Dr. Kc -She is also seeing Dr. Lopez from physiatry. She has a history of gout and states that her right great toe is painful as of yesterday. Her diet has been poor and she believes that this could be a gouty flare. There was no injury. No fevers or chills. No current erythema or swelling but it is very tender to light touch. No numbness or tingling. States that she can move the joint but it is painful. Neuro: She feels that her short term memory is not as great as it used to be. This is going on for years and no significant changes. Her friends have dementia and are on medications and she wonders if she should go on something. No headaches, vision changes. When she gets stressed it is worse. She cannot give me any examples. She is not getting lost, forgetting to eat, forgetting medications, or any safety issues. Psych: She Was recently increased on the Zoloft to 100 mg and trazodone 100 mg for some time and feels well-controlled with this. She feels that this has increased. GI: She states that she does not go for any routine screening tests. She does follow with a etcher apprentice photoengraving who has offered her a colonoscopy every year but she declines it. She follows for her pantoprazole. Endo: Following with endocrinology for her osteoporosis. She has a hx of osteoporosis and states that her mother had severe osteoporosis. She is lifting weights again. She is doing bone and balance . She was on vitamin D and calcium and plans to start evenity next week. She is following with Dr. Lopez. PENDING SALE TO [facility] Medical History (Updated 09/23/24 @ 13:41 by Allison Ham PA-C) Generalized anxiety disorder Insomnia Major depression, recurrent, chronic Arthritis High blood cholesterol COPD (chronic obstructive pulmonary disease) Urge incontinence Joint pain Chronic back pain HTN (hypertension) Bleeding hemorrhoid Back pain with history of spinal surgery Surgical History History of back surgery History of surgery Family History Father Thrombosis Mother Diabetes Heart rate problem Social History Household Members: None Housing: Apartment Do you presently have visiting nurse or other home services: Yes (ENTRY LEVEL ACCOUNT REPRESENTATIVE for housekeeping 2 times per week) Patient Tobacco Use Status: Former Tobacco user Tobacco use type: Cigarette Cigarettes Per Day: 15 Years Smoked: 10 e-Cigarette/Vaping Use: Never Used Second Hand Smoke Exposure: No Substance Use Type: Painkillers service: No Current occupational status: retired Cognitive needs: No Hearing needs: Yes (hearing aids) Vision needs: No Questionnaire Thrive Questionnaire Date Thrive assessed: 07/29/24 I am a: Patient What is your living situation today?: I have a steady place to live THRIVE Score: 0 RAYNE-7 AMB Questionnaire RAYNE-7 Date RAYNE - 7 assessed: 01/29/24 Source: Developed by Drs. Rommel Olivares, Kaylee Fabian, Al Ny and colleagues, with an educational ken from [employer]. Physical exam (Primary Care) BMI result Body Mass Index 36.6 Tobacco/Smoking Status: Tobacco use Status Tobacco use date assessed 01/29/24 09/23/24 13:03 Patient Tobacco Use Status Former Tobacco user 09/23/24 13:03 Tobacco use type Cigarette 09/23/24 13:03 e-Cigarette/Vaping Use Never Used 09/23/24 13:03 Thrive Assessment: Date of Thrive Assessment Date Thrive assessed 07/29/24 09/23/24 13:03 Results Reviewed Results Reviewed: IMPRESSION: Stable hypoechoic lesion of the right kidney. Ultrasound follow-up in 1 year as indicated. This document has been electronically signed by: Obi Smith MD on 08/11/2024 17:28:09 US/US venous duplex LE BI IMPRESSION: No evidence of acute DVT in the bilateral lower extremities. Laboratory Tests 02/14/24 08/05/24 09:04 11:20 WBC 10.8 RBC 4.32 Hgb 13.4 Hct 41.3 Plt Count 395 Sodium 144 143 Potassium 4.4 4.0 Chloride 110 H 106 Carbon Dioxide 23 27 Anion Gap 15 14 BUN 24 H 15 Creatinine 0.96 0.79 Estimated GFR 55 > 60 Random Glucose 97 AST 25 ALT 11 Triglycerides 121 Cholesterol 148 LDL Cholesterol, Calc 61 HDL Cholesterol 63 TSH 1.43 Coding Level of Care Code Est Pt Level 4 (11259) Complex EM visit Add On G2211 Diagnoses Primary hypertension I10 Hypertension type: primary hypertension High blood cholesterol E78.00 Major depression, recurrent, chronic F33.9 Paroxysmal A-fib I48.0 Failed back syndrome, lumbar M96.1 Memory changes R41.3 Right foot pain M79.671 Assessment & Plan Assessment & Plan (1) HTN (hypertension): Code(s): I10 - Essential (primary) hypertension Category: Medical Qualifiers: Hypertension type: primary hypertension Qualified Code(s): I10 - Essential (primary) hypertension Plan: Elevated above goal. States that blood pressures have been normal at home. She will check and let me know if we need to adjust the regimen. (2) High blood cholesterol: Code(s): E78.00 - Pure hypercholesterolemia, unspecified Category: Medical Plan: We will continue to monitor (3) Major depression, recurrent, chronic: Code(s): F33.9 - Major depressive disorder, recurrent, unspecified Category: Medical Plan: improved with the Zoloft dosage. Continue current regimen (4) Paroxysmal A-fib: Code(s): I48.0 - Paroxysmal atrial fibrillation Category: Medical Plan: stable following with cardiology on xarelto and atenolol for rate control (5) Failed back syndrome, lumbar: Code(s): M96.1 - Postlaminectomy syndrome, not elsewhere classified Category: Medical Plan: currently well-controlled. (6) Memory changes: Code(s): R41.3 - Other amnesia Category: Medical Plan: referral to neuro (7) Right foot pain: Code(s): M79.671 - Pain in right foot Category: Medical Plan: X-ray ordered. we will treat with a Medrol Dosepak. Uric acid ordered. Follow up if no improvement or if anything worsens or changes. Discussed a low purine diet. Patient understands and agrees with this plan. Orders: Orders TSH reflex Free T4 Today E78.00 - Pure hypercholesterolemia, unspecified, F33.9 - Major depressive disorder, recurrent, unspecified, I10 - Essential (primary) hypertension, R41.3 - Other amnesia UA CC w/rflx Micro + Cult Today E78.00 - Pure hypercholesterolemia, unspecified, F33.9 - Major depressive disorder, recurrent, unspecified, I10 - Essential (primary) hypertension, R41.3 - Other amnesia, Z13.220 - Encounter for screening for lipoid disorders Magnesium Today E78.00 - Pure hypercholesterolemia, unspecified, F33.9 - Major depressive disorder, recurrent, unspecified, I10 - Essential (primary) hypertension, R41.3 - Other amnesia XR foot RT min 3V Today M79.671 - Pain in right foot Complete Blood Count Auto Diff Today E78.00 - Pure hypercholesterolemia, unspecified, F33.9 - Major depressive disorder, recurrent, unspecified, I10 - Essential (primary) hypertension, R41.3 - Other amnesia Comprehensive [place]. Panel Fast Today E78.00 - Pure hypercholesterolemia, unspecified, F33.9 - Major depressive disorder, recurrent, unspecified, I10 - Essential (primary) hypertension, R41.3 - Other amnesia Vitamin B12 and Folate Today E78.00 - Pure hypercholesterolemia, unspecified, F33.9 - Major depressive disorder, recurrent, unspecified, I10 - Essential (primary) hypertension, R41.3 - Other amnesia Referrals Neurology Referral R41.3 - Other amnesia Medications: New methylprednisolone (Medrol (Myles)) PO PER PKG DIR for 6 days 21 ea 0RF
[2024-09-23 13:14] VITALS: BP 156/78; PULSE 82; RESP 14; O2SAT 99
--- OUTSIDE RECORDS SUMMARY | 2024-09-23 15:41 | XMS_ITS ---
Author Organization [facility] Address [address] [place] [phone] Care Team Providers Care Crisis Therapist Name Role Phone SHANDRA MIDDLETON Primary Care [...] a day for 90 days Active Nystatin 919489 UNIT/GM apply a light dusting to the [...] unspecified type (I48.91) Active confirmed Atrial fibrillation (46758722) VITAL SIGNS Blood pressure systolic 122 mm Hg 01/22/20 24 Blood pressure diastolic 68 mm Hg 024 Heart Rate 55 /min 01/22/2024 Height 59 in 01/22/2024 Weight 174.6 lbs 01/22/2024 BMI 35.26 kg/m2 01/22/2024 Oximetry 95 % 01/22/2024 Height-cm 149.86 cm 01/22/2024 Weight-kg 79.2 kg 01/22/2024 Encounters Encounter Location Date Provider Diagnosis [address] [id number] 01/22/2024 SHANDRA MIDDLETON Moderate persistent asthma, uncomplicated [...] by hospital team. She was referred to [facility], we encouraged her to make this appointment. Continue with current care plan until this time. She continues to diurese fluid, we will continue to monitor breathing. Provided extensive education to patient and her daughter regarding signs and symptoms that require emergency care 01/22/2024 Other This visit was performed by [facility] student Sumi Jacome RN under the supervision of Shandra Middleton DNP, ART, MANAGER EXPRESS-C, MAURY. PLAN OF TREATMENT Treatment Notes Assessment [...] by hospital team. She was referred to [facility], we encouraged her to make this appointment. Continue with current care plan until this time. She continues to diurese fluid, we will continue to monitor breathing. Provided extensive education to patient and her daughter regarding signs and symptoms that require emergency care Other This visit was perfo rmed by [facility] student Sumi Jacome RN under the supervision of Shandra Middleton DNP, ART, MANAGER EXPRESS-C, MAURY. Progress Notes * JACKIE COLLINSOB:[birth year] (88 yo F)Acc No.[id number]:01/22/2024 Progress Notes Patient:??DENNISMEKAKAY Provider:??Shandra Middleton DNP :1935?Age:88 Y?Sex:Fe male Date:01/22/2024 Phone: Address:[address] [place] [address], [place] [address] , [place], [place] Subjective: * Chief Complaints: * ?1. F/u [...] at the ED, she was feeling extremely pvd8orxhr and SOB for 2.5 days. At ED [...] Bruise easily, PND - Sinus Infections. * Drapery Hemmer Automatic History:?Last pap smear date??Recent BUSINESS RELATIONS MANAGER visit 2021 for overactive bladder w/full [...] drink alcohol?: Yes, Socially (). ?Lives in [place], [place] in elderly complex, alone. * Medications:??Taking [...] MOUTH EVERY DAY NEEDED , Taking Nystatin 268892 UNIT/GM Powder apply a light dusting to [...] by hospital team. She was referred to [facility], we encouraged her to make this appointment. Continue with current care plan until this time. She continues to diurese fluid, we will continue to monitor breathing. Provided extensive education to patient and her daughter regarding signs and symptoms that require emergency care? 4.??Others?? Notes: This visit was performed by [employer] student Sumi Jacome RN under the supervision of Shandra Middleton DNP, TUBE SIZER OPERATOR, MANAGER EXPRESS-C, VWCN. ? * Preventive Medicine:?Last CPE: 04/11/2022 DEXA: Colonoscopy: Yes, no longer gets them Endoscopy: No Covid Vac: Yes Flu Vac: Yes PV: Yes Shingles Vac: Yes. * Billing Information: * Visit Code:?? 75057 Office Visit, Est Pt., Level 3. * [...]
--- OUTSIDE RECORDS SUMMARY | 2024-09-23 15:41 | XMS_ITS ---
[facility] Address [address] [place] [phone] Care Team Providers Care Shell Core And Molding Supervisor Name Role Phone SHANDRA MIDDLETON Primary Care Provider REASON FOR VISIT f/u meds, pain Encounters Encounter Location Date Provider Diagnosis [address] [id number] 01/01/2024 SHANDRA MIDDLETON PLAN OF TREATMENT No Information Progress Notes * JACKIE COLLINSOB:[birth year] (88 yo F)Acc No.[id number]:01/01/2024 Progress Notes Patient:??KAY COLLINS Provider:??Shandra Middleton DNP :1935?Age:88 Y?Sex:Fe male Date:01/01/2024 Phone: Address:[address] [place] [address], [address] , [place], [place] Subjective: * Chief Complaints: * ?1. F/u meds, pain. * Medical History:?? Objective: Assessment: Plan: * Treatment: * Billing Information: * Visit Code:?? * Procedure Codes:?? * Sign off status: Pending * Provider:??Shandra Middleton DNP Date:??0 01/01/2024
--- OUTSIDE RECORDS SUMMARY | 2024-09-23 15:41 | XMS_ITS | Patient Health Record ---
Author Organization [facility] [employer] [facility] Address [address] [place] [address] [phone] Care Team Providers Care Material Assistant Name Role Phone SHANDRA MIDDLETON Primary Care Provider Shelby Johnson Unavailable [phone] ALLERGIES Allergen (clinical drug ingredient) Drug/Non Drug Allergy documented on EMR Reaction Allergy Type Onset Date Status Dust Mites Unknown Allergy Active REASON FOR REFERRAL No Information [...] a day for 90 days Active Nystatin 860002 UNIT/GM apply a light dusting to the [...] (primary) hypertension (I10) Active confirmed Essential hypertension (78096890) Problem Moderate persistent asthma, uncomplicated (J45.40) Active confirmed Uncomplicated moderate persistent asthma (922931846) Problem Osteoarthritis of hip, unspecified (M16.9) Active confirmed Osteoarthritis of hip (301667698) Problem Sacroiliitis, not elsewhere classified (M46.1) Active confirmed Solitary sacroiliitis (373191066) Problem Overactive bladder (N32.81) Active confirmed Overactive bladder (514079825) Problem 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) Active confirmed Postmenopa usal atrophic vaginitis (70869312) Problem Atrial fibrillation, unspecified type (I48.91) Active confirmed Atrial fibrillation (39367016) VITAL SIGNS Heart Rate 55 /min 01/22/2024 Temperature 98.4 degrees Fahrenheit 12/11/2023 Height-cm 149.86 cm 01/22/2024 Oximetry 95 % 01/22/2024 Blood pressure diastolic 68 mm Hg 01/22/2024 Weight-kg 79.2 kg 01/22/2024 Height 59 in 01/22/2024 Blood pressure systolic 122 mm Hg 01/22/2024 Weight 174.6 lbs 01/22/2024 BMI 35.26 kg/m2 01/22/2024 Encounters Encounter Location Date Provider Diagnosis [facility], [address], [place] [id number] 01/01/[address] [id number] 01/22/2024 SHANDRA MIDDLETON Moderate persistent asthma, uncomplicated J45.40 ; Overactive bladder N32.81 and Atrial fibrillation, unspecified type I48.[address] [id number] 10/29/2023 SHANDRA MIDDLETON Cervicalgia M54.2 ; Sacroiliitis, not elsewhere classified M46.1 ; Overactive bladder N32.81 and Moderate persistent asthma, uncomplicated J45.[address] [id number] 12/03/2023 Shelby Johnson Skin rash R21 [address] [id number] 12/11/2023 Shelby Johnson Shortness of breath R06.02 ; Wheezing R06.2 ; Acute cough R05.1 and Pneumonia of right lung due to infectious organism, unspecified part of lung J18.[address] [id number] 12/24/2023 SHANDRA MIDDLETON Sacroiliitis, not elsewhere classified M46.1 ; Depression, unspecified F32.A ; Moderate persistent asthma, uncomplicated J45.40 and Essential (primary) hypertension I10 [address] [id number] 10/11/[address] [id number] 10/21/2023 SHANDRA MIDDLETON Sacroiliitis, not elsewhere classified M46.[address] [id number] 11/29/2023 SHANDRA MIDDLETON Sacroiliitis, not elsewhere classified M46.[address] [id number] 12/12/[address] [id number] 01/22/2024 SHANDRA MIDDLETON Sacroiliitis, not elsewhere classified M46.1 ASSESSMENTS Encounter Date Diagnosis Assessment Notes Treatment Notes Treatment Clinical Notes Section Notes 10/21/2023 Sacroiliitis, not elsewhere classified (ICD-10 - [...] and coordination of care. Gil Irizarry BSN, [employer] WORK[employer] student saw the patient and formulated the note under direct supervision of Dr. Shandra Middleton, DNP. 12/24/2023 Depression, unspecified (ICD-10 - F32.A) [...] by hospital team. She was referred to [facility], we encouraged her to make this [...] changes made, medication(s) refilled as indicated 10/29/2023 Overactive bladder (ICD-10 - N32.81) Condition [...] No changes made, medication(s) refilled as indicated 01/22/2024 Other This visit was performed by WINDER TENDERReed Jacome RN under the supervision of Shandra Middleton, ZINA, TECHNICAL PUBLICATIONS WRITER, WINDER TENDER-C, VWKB. 10/29/2023 Other Total time spen t [...] Medicare [address] [place] [address] [phone] [id number] ANDKAY AVILES Self - patient is the insured [facility] [address] BRINDA THAKKAR [phone] [id number] KAY COLLINS Self - patient is the [...]
--- OUTSIDE RECORDS SUMMARY | 2024-09-23 15:41 | XMS_ITS ---
Author Organization [facility] Address [address] [place] [id number] Care Team Providers Care Physical Design Engineer Name Role Phone Ling Middleton DNP Primary Care Provider Joanne Reeves Jr, Elbert Unavailable [phone] REASON FOR VISIT pantoprazole refill MEDICATIONS Medication SIG (Take, Route, Frequency, Duration) Notes Start Date End Date Status Pantoprazole Sodium 40 MG TAKE 1 TABLET BY MOUTH EVERY DAY for 90 days Active Encounters Encounter Location Date Provider Diagnosis [facility] [address] [place] [address] 03/26/2023 Elbert Reeves Jr PLAN OF TREATMENT Medication Medication Name Sig Start Date Stop Date Notes Pantoprazole Sodium 40 MG TAKE 1 TABLET BY MOUTH EVERY DAY for 90 days
--- OUTSIDE RECORDS SUMMARY | 2024-09-23 15:42 | XMS_ITS | Data Portability ---
Author Organization [facility] Pain Managem michael, [facility] Address [address] [facility] [address] [place] [address] Care Team Providers Care Ordering Box Operator Name Role Phone SHALA DELGADO Referring Provider [...] booked for the same. She needs a gas truck driver on the day of the procedure. [...] . Imaging None recorded . Medication Orders Flector 1.3 % transder mal 12 hour patch 2015 016 miguel [id number], [address] [place], [address], 6 11:36:11 Celebrex 200 mg capsule 2015 016 [id number], [address] [place], [address], 6 08:56:14 Patient TargetsNo targets recorded. Patient Instructions Encounter Date Encounter Id Patient Instructions Last Modified By Organization Details Last Modified Time 08/16/2015 [id number] She was advised against bed rest lasting longer than four days and to continue activities as tolerated. [email or web address] Not available 08/16/2015 13:04:51 09/01/2015 [id number] She was advised against bed rest lasting longer than four days and to continue activities as tolerated. tmanikantan Not available 09/01/2015 15:28:37 09/07/2015 [id number] She was advised against bed rest lasting longer than four days and to continue activities as tolerated. tmanikantan Not available 09/08/2015 14:18:24 09/13/2015 [id number] She was advised against bed rest lasting longer than four days and to continue activities as tolerated. tmanikantan Not available 09/13/2015 14:59:45 09/23/2015 [id number] She was advised against bed rest lasting longer than four days and to continue activities as tolerated. [email or web address] Not available 09/27/2015 10:03:45 Reason for Referral None Reported. Results Created Date Observation Date Name Description Value Unit Range Abnormal Flag Note LastModifiedBy Organization Detail LastModifiedTime 08/22/19 16 08/22/2015 x-ray , tony mclaughlin, 2 views No observ ation record ed. [facility] Diagn[facility] Imaging Dept [address] [place] [address], [address], 09/01/2015 15:28:37 Result Notes None recorded. Problems Name Problem SNOMED Code Status Onset Date Resolution Date Notes Provider Name and Address Organization Details Recorded Time Enthesopathy of hip region 22493747 Active Johnny henning MD [address] , [address], [place], [address], [place] [facility] 6 11:36:10 Lumbosacral spondylosis without myelopathy 02626449 Jillian henning MD [address] , [address], [place], [address], [place] [facility] 6 11:36:10 Lumbar post-laminecto my syndrome 393608034 Jillian henning MD [address] , [address], [place], [address], [place] [facility] 6 11:36:10 Lumbosacral radiculitis 15647116 Jillian henning MD [address] , [address], [place], [address], [place] [facility] 6 11:36:10 Disorder of bursa of shoulder region 05558967 Active Johnny henning MD [address] [facility] , [address], [place], [address], [place] [facility] 6 11:36:11 Muscle pain 12353824 Active Johnny henning MD [address] [facility] , [address], [place], [address], [place] [facility] 6 11:36:10 Problem Notes None recorded. Procedures Surgical History Date Name Laterality Status Provider Name and Address Organization Details Recorded Time 09/13/19 16 Radiofrequency of Lumbar/Sacral medial branches supplying the facets under fluoroscopic guidance completed Johnny Montanez MD [address] [facility] , [address], [place], [address], [place] [facility] 09/14/2015 14:17:33 09/07/19 16 Lumbar median branch block under fluroscopic guidance completed Johnny Montanez MD [address] [facility] , [address], [place], [address], [place] [facility] 09/08/2015 14:23:25 08/16/19 16 Fluoroscopic Guided Lumbar Facet Steroid Injections of levels completed Johnny Montanez MD [address] [facility] , [address], [place], [address], [place] [facility] 08/16/2015 13:09:50 03/08/20 15 Fluoroscopic Guided Lumbar Facet Steroid Injections of levels completed Johnny Montanez MD [address] [facility] , [address], [place], [address], [place] [facility] 03/09/2015 [...] Time 08/22/2015 x-ray, shoulder, 2 views completed [facility] Dept [address] [place] [address], [place], [address], 09/01/2015 15:28:37 Procedure Notes None recorded. Medical Equipment None Reported. Allergies No known drug allergies Medications Name Sig Start Date Stop Date Status Note LastModified by Organization Details LastModified Time amoxicillin 500 mg caps active Not Available [...] Available N ot Available amoxicillin 500 mg capsule TAKE 4 [...] Smoker Quit x 40 years Not Available [facility] 05/13/2020 03:16:11 What Is Your Level Of Alcohol Consumption? Moderate Wine [id number] Information not available 05/13/2020 Are You Currently Employed? No [id number] Information not available 05/13/2020 Which Illicit Or Recreational Drugs Have You Used? No [id number] Information not available 05/13/2020 Education 12 Information no t available 03/01/2015 Live Alone Or With Others? Alone Information not available 03/01/2015 Marital Status Informatio n not available 03/01/2015 How Many Years Have You Smoked Tobacco? 20 [id number] Information not available 05/13/2020 Sex: Unknown Functional [...] SNOMED-CT Code Diagnosis ICD10 Code Diagnosis Note [id number] [facility] [address] [place] [address] 03/01/2015 10:09:29 03/02/2015 11:29:26 Lumbar post-laminectomy syndrome 682869127 Lumbosacra l radiculitis 76863191 Lumbosacra l spondylosis without myelopathy 50031076 Enthesopat hy of hip region 22156206 96440 [facility] [address] [place] [address] 03/08/2015 14:21:23 03/09/2015 09:25:14 Lumbosacral spondylosis without myelopathy 32319192 Enthesopat hy of hip region 40398735 Lumbosacra l radiculitis 26690439 Lumbar post-laminectomy syndrome 652906793 56161 [facility] [address] [place] [address] 04/11/2015 14:50:34 04/12/2015 09:13:56 Lumbosacral spondylosis without myelopathy 36060858 Enthesopat hy of hip region 16133852 Lumbosacra l radiculitis 65802039 Lumbar post-laminectomy syndrome 411377821 21884 Johnny Montanez MD [facility] [address] [place] [address] 08/16/2015 10:11:47 08/16/2015 14:46:00 Lumbosacral spondylosis without myelopathy 11297206 M47.817 Enthesopat hy of hip region 76498395 M76.9 Lumbosacra l radiculitis 06426558 M54.17 Lumbar post-laminectomy syndrome 433994909 M96.1 Disorder o f bursa of shoulder region 43246987 M25.812 57413 Johnny Montanez MD PAIN OFFICE [address] [place] [address] 09/01/2015 14:03:53 09/01/2015 15:37:11 Lumbosacral spondylosis without myelopathy 13437902 M47.817 Enthesopat hy of hip region 74588960 M76.9 Disorder o f bursa of shoulder region 64601635 M25.812 Lumbosacra l radiculitis 55599449 M54.17 Lumbar post-laminectomy syndrome 226367020 M96.1 65471 Johnny Montanez MD [facility] [address] [place] [address] 09/07/2015 09:36:32 09/08/2015 14:24:03 Lumbosacral spondylosis without myelopathy 79659349 M47.817 Enthesopat hy of hip region 70316099 M70.61 Disorder o f bursa of shoulder region 35856874 M25.812 Lumbosacra l radiculitis 59511200 M54.17 Lumbar post-laminectomy syndrome 252603233 M96.1 27529 Johnny Montanez MD [facility] [address] [place] [address] 09/13/2015 10:08:37 09/13/2015 15:13:45 Lumbosacral spondylosis without myelopathy 89493585 M47.817 Lumbar post-laminectomy syndrome 785238160 M96.1 Enthesopat hy of hip region 34443222 M70.61 Disorder o f bursa of shoulder region 55643844 M25.812 Lumbosacra l radiculitis 25574653 M54.17 12811 Johnny Montanez MD [facility] [address] [place] [address] 09/23/2015 08:47:47 09/27/2015 11:36:33 Lumbosacral spondylosis without myelopathy 45826130 M47.817 Lumbar post-laminectomy syndrome 648829637 M96.1 Lumbosacra l radiculitis 08203359 M54.17 Muscle pain 25098234 M79 .1 Enthesopat hy of hip region 41224709 M70.61 Disorder o f bursa of shoulder region 13823651 M25.812 Health Concerns Section Related Observation LastModified by Organization Detai ls LastModified Time None Recorded Concern Status LastModified by Organization Details LastModified Time None Recorded Advance Directives Directive None Recorded Payers Encounter Date Sequence Insurance Name Policy Number Policy Blanco Covered Member ID Blanco Member ID Guarantor Name 08/16/2015 1 [place] [employer] Brenda M Andras [id number] Brenda Andras 08/16/2015 2 [facility] (MEDICARE SUPPLEMENT) Brenda Andras [id number] Brenda Andras 09/01/2015 1 [place] [employer] Brenda M Andras [id number] Brenda Andras 09/01/2015 2 [facility] (MEDICARE SUPPLEMENT) Brenda Andras [id number] Brenda Andras 09/07/2015 1 [place] [employer] Brenda M Andras [id number] Brenda Andras 09/07/2015 2 [facility] (MEDICARE SUPPLEMENT) Brenda Andras [id number] Brenda Andras 09/13/2015 1 [place] [employer] Brenda M Andras [id number] Brenda Andras 09/13/2015 2 [facility] (MEDICARE SUPPLEMENT) Brenda Andras [id number] Brenda Andras 09/23/2015 1 [place] [employer] Brenda M Andras [id number] Brenda Andras 09/23/2015 2 [facility] (MEDICARE SUPPLEMENT) Bernda Andras [id number] Brenda Andras Notes Date Note Type [...] her left shoulder. Johnny Montanez MD [address] [facility] , [address], [place], [address], [facility] - Pain Management 08/18/2015 09:24:14 09/01/2015 text/html She is here for a follow up after a left shoulder X-ray. 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 She states she has seen a PA at [facility] and she recommended a total knee [...] an issue presently. Johnny Montanez MD [address] [facility] , [address], [place], [address], [facility] - Pain Management 09/02/2015 11:09:45 09/07/2015 text/html She is here for a trial of right median branch block under fluoroscopic guidance at L4, L5and S1 medial branches. Johnny Montanez MD [address] [facility] , [address], [place], [address], [facility] - Pain Management 09/08/2015 15:45:44 [...] MD [address] , [address], [place], [address], [facility] - Pain Management 09/14/2015 14:17:41 09/23/2015 text/html She is here for a follow up. She states she is noticing pain in her muscles in the low back and she had difficulty sleeping due to pain and muscle spasms since the radiofrequency ablation. She has been applying ice. She has seen Tamika at [facility] and has started synvisc injections for [...] bladder or bowel incontinence. Johnny Montanez MD [address] [place] [address] , [address], [place], [address], [facility] 10/03/2015 08:52:43 OBGyn Episode No OBEpisode recorded.
--- OUTSIDE RECORDS SUMMARY | 2024-09-23 15:42 | XMS_ITS | Patient Health Record ---
Author Organization [facility] Address [address] [place] [address] Care Team Providers Care Supervisor Enrobing Name Role Phone Ling Middleton DNP Primary Care Provider Elbert Jose Jr Unavailable [phone] ALLERGIES Allergen (clinical drug ingredient) Drug/Non Drug [...] a day for 30 day(s) Active Ipratropium [place] 0.06 % 2 sprays in e ach nostril Nasally Three times a day for 4 day(s) Active Amoxicillin 500 MG 1 capsule Orally NEEDED FOR DENTIST Active Calcium 500 MG 1 tablet Orally Once a day Active Tramadol & Dietary Manage Prod Active Vitamin D3 Ultra Potency 99179 UNIT 1 tablet Orally as directed Active [...] Notes Problem Rectal bleeding (K62.5) Active confirmed 64751374 Problem Gastro-esophagea l reflux disease without esophagitis (K21.9) Active confirmed 617874715 Problem Cough (R05) Active confirmed 78767193 Problem Urinary incontinence, unspecified type (R32) Active confirmed 172392532 PLAN OF TREATMENT Pending Test Test Name Order Date XR GI SERIES 07/14/2015 Insurance Providers Payer Name Payer Address Payer Phone Subscriber Number Group Number Insured Name Patient Relationship to Insured Coverage Start Date Coverage End Date MEDICARE OF [place] [address] [place] [address] [id number] ANDKAY AVILES Self - patient is the insured [employer] [address] BRINDA THAKKAR [phone] [id number] KAY COLLINS Self - patient is the insured MEDICAL (GENERAL) HISTORY Medical History History ICD Code EGD/colonoscopy 01/03/2006. No evidence of Morse's esophagus. Hyperplastic colon polyp. Seasonal allergic rhinitis hypertension hypercholesterolemia scoliosis arthritis depression Surgical History Surgery Date(Month/Year) Vocal cord polyp 2006 Multiple back and neck surgeries rotator cuff surgery both knee replacement left
--- OUTSIDE RECORDS SUMMARY | 2024-09-23 15:42 | XMS_ITS | Data Portability ---
Author Organization [place] [facility], _[facility] Address [address] [place] [address] Assessment Encounter Date Assessment Date Assessment LastModified [...] 143 mm[Hg] 79 mm[Hg] Yun Harrell MD [address] [place] [address], [address] [place], [place] - [facility] 8 16:35:36 Date Recorded Body temperature Heart rate Respiratory rate Systolic blood pressure Diastolic blood pressure Provider Name and Address Organization Details Last Updated DateTime 8 98.5 [degF] 80 /min 18 /min 125 mm[Hg] 59 mm[Hg] GUILHERME Cazares NP [address] [place], [address] [place] [address] [facility] 8 10:16:59 Date Recorded Body temperature Heart rate Respiratory rate Systolic blood pressure Diastolic blood pressure Provider Name and Address Organization Details Last Updated DateTime 8 99.7 [degF] 68 /min 18 /min 103 mm[Hg] 57 mm[Hg] GUILHERME Cazares NP [address] [place] [address], [address] [place] [address] [facility] 8 09:45:06 Date Recorded Body temperature Heart rate Systolic blood pressure Diastolic blood pressure Provider Name and Address Organization Details Last Updated DateTime 12/05/2017 97.8 [degF] 80 /min 147 mm[Hg] 78 mm[Hg] GUILHERME HALL NP [address] [place] [address], [address] [facility] 12/05/2017 10:18:56 Date Recorded Body weight Body temperature Heart rate Oxygen saturation Oxygen saturation in Arterial blood by Pulse oximetry Systolic blood pressure Diastolic blood pressure Provider Name and Address Organization Details Last Updated DateTime 8 [address]7528.5 2 g 97.8 [degF] 72 /min 96 % 96 % 99 mm[Hg] 41 mm[Hg] GUILHERME Cazares NP [address] [place] [address], [address] [place] [address] [facility] 8 09:38:58 Social History Question Answer Notes LastModified by Organizat ion Details LastModified Time Tobacco Smoking Status Former Smoker Yun Harrell MD [address] [place] [address], [address], [facility] 12/01/2017 16:36:41 What [...] SNOMED-CT Code Diagnosis ICD10 Code Diagnosis Note [id number] Yun Harrell MD [facility] [address] [place] [address] 12/01/2017 16:22:36 12/06/2017 14:56:06 Spinal stenosis of lumbar region 65900890 M48.061 s/p decompress ion, pain is controlled on tylenol, dilaudid, fentanyl patch, PT, OT, wound care Essential hypertension 23358197 I10 cont amlodipin, losartan Hyperlipidemia 00614569 E78.5 cont lipitor Gastroesop hageal reflux disease without esophagitis 648621640 K21.9 cont PPI Constipation 68434080 K5 9.00 colace, senna, miralax ,enema if needed Depressive disorder 3548 9007 F32.9 cont zoloft, trazodone [id number] GUILHERME HALL NP [place] [address] [place] [address] 12/02/2017 10:05:52 12/04/2017 11:11:45 Spinal stenosis of lumbar region 11917819 M48.061 s/p decompress ion, pain is controlled on tylenol, dilaudid, fentanyl patch, cont with PT and OT here; incision is covered with steri stips and DPD Essential hypertension 54515612 I10 cont amlodipin, losartango od BP control Hyperlipidemia 16622028 E78.5 cont lipitor Gastroesop hageal reflux disease without esophagitis 284564153 K21.9 cont PPI Constipation 92022193 K5 9.00 good BM; cont current med regiment Depressive disorder 3548 9007 F32.9 cont zoloft, trazodone [id number] GUILHERME HALL NP [facility] [address] [place] [address] 12/04/2017 09:44:05 12/06/2017 14:28:20 Spinal stenosis of lumbar region 84626116 M48.061 s/p decompress ion, pain is controlled on tylenol, dilaudid, fentanyl patch, cont with PT and OT here; incision is covered with steri stips. Essential hypertension 67772377 I10 cont amlodipin, losartango od BP control Hyperlipidemia 38543584 E78.5 cont lipitor Gastroesop hageal reflux disease without esophagitis 774254270 K21.9 cont PPI Constipation 79345293 K5 9.00 good BM; cont current med regiment Depressive disorder 5176 9007 F32.9 cont zoloft, trazodone Leukocytosis 642306428 D 72.829 wbc 12; pt has a fever; will get UA [id number] GUILHERME HALL NP [facility] [address] [place] [address] 12/05/2017 10:17:51 12/10/2017 16:37:53 Spinal stenosis of lumbar region 96784773 M48.061 s/p decompress ion, pain is controlled on tylenol, dilaudid, fentanyl patch, cont with PT and OT here; incision is covered with steri stips.pt jose be d/c home in a few days Leukocytosis 391157412 D 72.829 UA neg, afebrile; cbc pending from today Essential hypertension 15061854 I10 cont amlodipine , losartango od BP control Constipation 96524953 K5 9.00 good BM; cont current med regiment [id number] GUILHERME HALL NP [facility] [address] [place] [address] 12/06/2017 09:34:53 12/13/2017 12:45:01 Spinal stenosis of lumbar region 82852193 M48.061 s/p decompress ion, pain is controlled on tylenol, dilaudid, fentanyl patch,will give rx for fentalyn pathc #4 to go home withMass pat checkedf/u wit [place] in 8 weeks Essential hypertension 22719159 I10 cont amlodipin, losartan Hyperlipidemia 78648145 E78.5 cont lipitor Gastroesop hageal reflux disease without esophagitis 641392932 K21.9 cont PPI Constipation 97526260 K5 9.00 colace, senna, miralax ,enema if needed Depressive disorder 7474 9007 F32.9 cont zoloft, trazodone Health Concerns Section Related Observation LastModified by Organization Detai ls LastModified Time None Recorded Concern Status LastModified by Organization Details LastModified Time None Recorded Advance Directives Directive None Recorded Payers Encounter Date Sequence Insurance Name Policy Number Policy Blanco Covered Member ID Blanco Member ID Guarantor Name 12/01/2017 1 [place] [employer] Brenda M Andras [id number] Brenda Andras 12/02/2017 1 [place] Brenda M Andras [id number] Brenda Andras 12/04/2017 1 [place] [facility] Brenda M Andras [id number] Brenda Andras 12/04/2017 2 [facility] - MEDICARE ENHANCE (INDEMNITY PLAN) Brenda Andras [id number] Brenda Andras 12/05/2017 1 [place] Brenda M Andras [id number] Brenda Andras 12/05/2017 2 [facility] - MEDICARE ENHANCE (INDEMNITY PLAN) Brenda Andras [id number] Brenda Andras 12/06/2017 1 [place] [facility] Brenda M Andras [id number] Brenda Andras 12/06/2017 2 [facility] - MEDICARE ENHANCE (INDEMNITY PLAN) Brenda Andras [id number] Brenda Andras Notes Date Note Type Note Provider Name and Address Organization Details Recorded Time 12/01/2017 text/html seen for admission- came from [facility] where pt had L3-S1 decompression.Pt tolerated procedure well, pain is controlled on current fentanyl patch and dilaudidPt came to for further care Yun Harrell MD [address] [place], [address], [facility] 12/01/2017 16:43:01 12/02/2017 text/html seeing pt today for f/u; continues to work with therapy here, making progress. Pt came from [facility] where pt had L3-S1 decompression.Pt tolerated procedure well, pain is controlled on current fentanyl patch and dilaudid. GUILHERME HALL NP [address] [place], [address], [facility] 12/02/2017 10:21:10 12/04/2017 text/html seeing pt today for f/u; continues to work with therapy here, making progress. Pt came from [facility] where pt had L3-S1 decompression.Pt tolerated procedure well, pain is controlled on current fentanyl patch and dilaudid. GUILHERME HALL NP [address] [place], [address], [facility] 12/04/2017 12:59:51 12/05/2017 text/html seeing pt today for f/u; continues to work with therapy here, making progress.Ua was obtained yesterday; pt had elevated wbc Pt came from [facility] where pt had L3-S1 decompression.Pt tolerated procedure well, pain is controlled on current fentanyl patch and dilaudid. GUILHERME HALL NP [address] [place], [address], [facility] - [facility] 12/07/2017 15:19:06 12/06/2017 text/html seeing pt today for d/c; pt has done well with therapy here, made progress, will be d/c home tomorrow. GUILHERME HALL NP [address] [place], [address], [facility] - [facility] 12/08/2017 11:15:02 OBGyn Episode No OBEpisode recorded.
--- OUTSIDE RECORDS SUMMARY | 2024-09-23 15:42 | XMS_ITS ---
Author Organization [facility], [facility] Address [address] [place], [place] [address] Care Team Providers Care Integrity Assessor Name Role Phone SHANDRA MCDONALD Primary Care [...] Active Encounters Encounter Location Date Provider Diagnosis [address] [id number] 01/22/2024 SHANDRA MCDONALD Sacroiliitis, not elsewhere classified [...] * JACKIE COLLINSOB:[birth year] (88 yo F)Acc No.[id number]:01/22/2024 Patient:??KAY COLLINS :1935?Age:88 Y?Sex:Fe male Phone: Address:[address] , [address] , [place] [address] * Refills?? Refill oxyCODONE HCl Tablet, 5 [...]
== END 2024-09-23 13:46 | disposition home or self-care (01) ==
PROVIDERS: PCP Physician Assistant; Visit Provider Physician Assistant
DX: I10 Essential (primary) hypertension (principal); E78.00 Pure hypercholesterolemia, unspecified; F33.9 Major depressive disorder, recurrent, unspecified; I48.0 Paroxysmal atrial fibrillation; M96.1 Postlaminectomy syndrome, not elsewhere classified; R41.3 Other amnesia; M79.671 Pain in right foot

== ENCOUNTER → 2024-09-23 12:49 | Outpatient (BNVA) | payer MEDICARE, OTHER, SELFPAY | PROVIDERS: PCP Physician Assistant; Visit Provider Physician Assistant | DX: I10 Essential (primary) hypertension (principal); E78.00 Pure hypercholesterolemia, unspecified; F33.9 Major depressive disorder, recurrent, unspecified; I48.0 Paroxysmal atrial fibrillation; M96.1 Postlaminectomy syndrome, not elsewhere classified; R41.3 Other amnesia; M79.671 Pain in right foot | CPT/HCPCS: 99212 ==

== ENCOUNTER 2024-10-08 10:59 | Outpatient (AMB) | payer MEDICARE, OTHER, SELFPAY ==
--- NOTE | 2024-10-08 11:04 | A.OFFVIS_ITS ---
Intake Visit Reasons: kidney cyst Intake Note: New Patient presents for initial visit for kidney cyst Urology Medications: Gemtesa Blood Thinner: xarelto Financial Assistant Required: No Accompanied by: Self / Same As Patient Allergies bee pollen Allergy (Unknown, Verified 10/08/24 11:55) Unknown house dust mite Allergy (Unknown, Verified 10/08/24 11:55) Unknown adhesive tape Adverse Reaction (Intermediate, Verified 10/08/24 11:55) Rash Medication List - Last Reconciled 10/08/24 by ANTONIO Ibrahim- albuterol sulfate 90 mcg/actuation 2 puffs PO Q6H PRN amlodipine 5 mg PO DAILY atenolol 25 mg PO DAILY cholecalciferol (vitamin D3) 50 mcg PO DAILY fluticasone furoate-vilanterol 200-25 mcg/dose (Breo Ellipta) 1 ea inhalation DAILY fluticasone propionate 50 mcg/actuation 1 spray intranasal BID ipratropium bromide 2 sprays intranasal Q12H losartan 50 mg PO DAILY oxycodone 5 mg PO Q8H PRN 28 days oxycodone myristate CR-ER (Xtampza ER) 9 mg PO Q12H 28 days pantoprazole 40 mg PO DAILY@0630 rivaroxaban (Xarelto) 20 mg PO QPM 90 days romosozumab-aqqg (Evenity) 210 mg (2.34 mL) subcut .q month 12 months sertraline 100 mg PO DAILY trazodone 100 mg PO BEDTIME vibegron (Gemtesa) 75 mg PO DAILY walker A rolling walker with seat use daily As directed HPI Comments Details: [place] a very pleasant 89-year-old female patient of Dr. Ham. She has a past medical history of anxiety, insomnia, depression, arthritis, hypercholesteremia, COPD, urge incontinence, chronic back pain, hypertension, and hemorrhoids. She presents to the office today as a new patient for renal cysts. In discussion with the patient today she reports having had recent renal imaging performed in recommendations were made for urology referral for further assessment evaluation. These results were reviewed with the patient and her daughter Maureen who was present on the phone during today's office visit. 08/22 right kidney with stable hypoechoic lesion measuring 1.6 cm. per radiology report follow-up in 1 year. in discussion with the patient today she reports to be doing and feeling well. She denies any bothersome urinary issues or concerns. In review of patient's chart it does appear patient is on Gemtesa. Patient reports having followed up with a uro analytical data miner a few years ago and undergoing further workup for her stress incontinence/ overactive bladder she had been experiencing at which time she was started on Gemtesa and has since been taking the medication as she noted significant improvement. She discusses her recent experience with financial challenges due to insurance changes affecting medication coverage but has recently secured prior authorization for the continuation of Gemtesa for another year. There was a prior alteration of dosage when affordability was an issue where the patient was advised to half the original dose. The cyst has been stable over time, as confirmed by assessments of previous imaging studies, with no significant growth observed. The plan recommended by the previous evaluations included an ultrasound follow-up one year after the latest scan to monitor any changes in size or character of the cyst. In office urinalysis results reviewed with the patient today. She currently denies urinary urgency, urinary frequency, incontinence, nocturia, hematuria, dysuria, foul smelling urine, changes to urinary stream, flank pain, fever, and or chills. She is happy with her current voiding parameters. [facility] Medical History Generalized anxiety disorder Insomnia Major depression, recurrent, chronic Arthritis High blood cholesterol COPD (chronic obstructive pulmonary disease) Urge incontinence Joint pain Chronic back pain HTN (hypertension) Bleeding hemorrhoid Back pain with history of spinal surgery Surgical History History of back surgery History of surgery Family History Father Thrombosis Mother Diabetes Heart rate problem Social History Household Members: None Housing: Apartment Do you presently have visiting nurse or other home services: Yes (PUMPER GAUGER APPRENTICE for housekeeping 2 times per week) Patient Tobacco Use Status: Former Tobacco user Tobacco use type: Cigarette Cigarettes Per Day: 15 Years Smoked: 10 e-Cigarette/Vaping Use: Never Used Second Hand Smoke Exposure: No Substance Use Type: Painkillers service: No Current occupational status: retired Cognitive needs: No Hearing needs: Yes (hearing aids) Vision needs: No Review of Systems Const Reports no additional complaints Eyes Reports no additional complaints ENT Details: hard of hearing patient with bilateral hearing aids Card Reports as per HPI Resp Reports as per HPI GI Reports no additional complaints Reports as per HPI Musc Reports as per HPI Neuro Reports no additional complaints Psych Reports as per HPI Endo Reports no additional complaints Mina/Lymph Reports no additional complaints Aller/Immun Reports no additional complaints Physical Exam Const General: cooperative, healthy appearing, comfortable, no acute distress, well developed, alert and awake Orientation/consciousness: patient oriented x3 Limitations: no limitations HEENT Head: Yes normal to inspection, Yes normocephalic and Yes atraumatic Ears: hearing grossly normal bilaterally Eyes General: appearance normal, both eyes and all related structures Neck Neck: Yes normal visual inspection and Yes trachea midline Chest Chest palpation & inspection: normal inspection of the chest Resp Effort & Inspection: normal respiratory effort and able to speak in complete sentences Cardio Rate: regular rate GI Inspection: Yes normal to inspection General: Yes no CVA tenderness Back/Spine/Pelvis Back: no CVA tenderness Skin General skin exam: no rashes or lesions noted Neuro General: patient oriented x3 Extrem General: Yes normal to inspection Psych Appearance: grossly normal and well kempt Mental Status: mental status grossly normal Speech and movement: Normal speech and movement present and Clear speech present Affect: normal affect Attitude: cooperative Thought process: Normal thought process present Thought content: Normal thought content present Insight: Fair insight present (Psych) Judgement: Fair judgement present (Psych) Results AMB Urinalysis, Automated UA Leukoctes 0 Yenny/uL Last Edit by [employer] on 10/08/24 11:26 UA Nitrite Last Edit by [employer] on 10/08/24 11:26 UA Urobilinogen 0.2 mg/dL Last Edit by [employer] on 10/08/24 11:26 UA Protein 0 mg/dL Last Edit by Jarrett Coon on 10/08/24 11:26 UA pH 6.0 Last Edit by Jarrett Coon on 10/08/24 11:26 UA Blood 0 Dre/uL Last Edit by Jarrett Coon on 10/08/24 11:26 UA Specific Encinal 1.015 Last Edit by Jarrett Coon on 10/08/24 11:26 UA Ketone Last Edit by Jarrett Coon on 10/08/24 11:26 UA Bilirubin 0 mg/dL Last Edit by Jarrett Coon on 10/08/24 11:26 UA Glucose 0 mg/dL Last Edit by Jarrett Coon on 10/08/24 11:26 Results Reviewed Results Reviewed: Date of Service: 08/11/24 Procedure(s): US renal RT US Renal Comparison: US/AL/SR - US RENAL BI - 02/05/24 11:26 EDT Findings: The prior CT is not available for review. Right kidney normal size and echotexture, 10 cm length. 1.6 x 1.3 x 1.3 cm hypoechoic lesion. No hydronephrosis. Normal color Doppler. IMPRESSION: Stable hypoechoic lesion of the right kidney. Ultrasound follow-up in 1 year as indicated. Assessment & Plan Assessment & Plan (1) Renal lesion: Code(s): N28.9 - Disorder of kidney and ureter, unspecified Category: Medical (2) Overactive bladder: Code(s): N32.81 - Overactive bladder Category: Medical (3) Urinary incontinence: Code(s): R32 - Unspecified urinary incontinence Category: Medical Plan Recent renal imaging results reviewed with the patient today; as noted above. We discussed stability in lesion when compared to previous imaging. We discussed further treatment options and risks and benefits of these treatment options Will continue with surveillance monitoring at this time. Patient currently denies any bothersome urinary issues or concerns. She reports be happy with current voiding parameters on 75 mg of Gemtesa; will continue. In office urinalysis results reviewed with the patient today; as noted above. All questions were answered. Follow-up in 1 year with imaging to be completed prior; or sooner with any issues, concerns, and or questions. Orders: Orders AMB Urinalysis Automated Today Z13.9 - Encounter for screening, unspecified US renal BI 1 Year N28.9 - Disorder of kidney and ureter, unspecified Patient Instructions: The patient had an opportunity to ask questions regarding the treatment plan. All questions were answered. Physical exam, labs, and imaging were discussed and reviewed in detail. As well as risks, benefits, and discussion of treatment choices. No major barriers to understanding were identified. The patient expressed understanding and agreement with the above treatment plan. The patient was made aware they should contact our office by phone for worsening of their current condition, the appearance of new symptoms, or with any questions or concerns. Compliance is encouraged with any medications and follow up testing that is ordered. It is a privilege to be allowed the opportunity to participate in? your urological care.? Again, if you have any questions or concerns If you have any questions or concerns please do not hesitate to contact me. The office is [phone]. This note is constructed using voice recognition software. While every effort has been made to ensure accuracy bilingual patient support caseworker errors may have been included. Yours sincerely, LEONOR Ibrahim Coding Level of Care Code New Pt Level 3 (65299) Diagnoses Renal lesion N28.9 Overactive bladder N32.81 Urinary incontinence R32
--- OUTSIDE RECORDS SUMMARY | 2024-10-08 14:08 | XMS_ITS ---
Author Organization [facility] [employer] [facility] Address [address] [place] [id number] Care Team Providers Care Organisational Psychologist Name Role Phone SHANDRA MIDDLETON Primary Care Provider [phone] ALLERGIES Allergen (clinical drug ingredient) Drug/Non Drug [...] a day for 90 days Active Nystatin 555144 UNIT/GM apply a light dusting to the [...] unspecified type (I48.91) Active confirmed Atrial fibrillation (72239759) VITAL SIGNS Blood pressure systolic 122 mm Hg 01/22/20 24 Blood pressure diastolic 68 mm Hg 024 Heart Rate 55 /min 01/22/2024 Height 59 in 01/22/2024 Weight 174.6 lbs 01/22/2024 BMI 35.26 kg/m2 01/22/2024 Oximetry 95 % 01/22/2024 Height-cm 149.86 cm 01/22/2024 Weight-kg 79.2 kg 01/22/2024 Encounters Encounter Location Date Provider Diagnosis [address] [id number] 01/22/2024 SHANDRA MIDDLETON Moderate persistent asthma, uncomplicated [...] by hospital team. She was referred to [facility], we encouraged her to make this appointment. Continue with current care plan until this time. She continues to diurese fluid, we will continue to monitor breathing. Provided extensive education to patient and her daughter regarding signs and symptoms that require emergency care 01/22/2024 Other This visit was performed by [facility] student Sumi Jacome RN under the supervision of Shandra Middleton DNP, ART, TOOLMAKER HELPER-C, MAURY. PLAN OF TREATMENT Treatment Notes Assessment [...] by hospital team. She was referred to [facility], we encouraged her to make this appointment. Continue with current care plan until this time. She continues to diurese fluid, we will continue to monitor breathing. Provided extensive education to patient and her daughter regarding signs and symptoms that require emergency care Other This visit was perfo rmed by [facility] [facility] student Sumi Jacome RN under the supervision of Shandra Middleton DNP, ART, TOOLMAKER HELPER-C, MAURY. Progress Notes * JACKIE COLLINSOB:[birth year] (89 yo F)Acc No.[id number]:01/22/2024 Progress Notes Patient:??DENNISMEKAKAY Provider:??Shandra Middleton DNP :1935?Age:88 Y?Sex:Fe male Date:01/22/2024 Phone: Address:[address] [place] [address], [place] [address] , [place], [id number] Subjective: * Chief Complaints: * ?1. F/u [...] at the ED, she was feeling extremely eir9tihvo and SOB for 2.5 days. At ED [...] Bruise easily, PND - Sinus Infections. 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 ?Lives in [place], [place] in elderly complex, alone. * Medications:??Taking [...] MOUTH EVERY DAY NEEDED , Taking Nystatin 848599 UNIT/GM Powder apply a light dusting to [...] by hospital team. She was referred to [facility], we encouraged her to make this appointment. Continue with current care plan until this time. She continues to diurese fluid, we will continue to monitor breathing. Provided extensive education to patient and her daughter regarding signs and symptoms that require emergency care? 4.??Others?? Notes: This visit was performed by TOOLMAK[employer] HEL[employer] student Sumi Jacome RN under the supervision of Shandra Middleton DNP, MANAGER FLEET, TOOLMAKER HELPER-C, VWCN. ? * Preventive Medicine:?Last CPE: 04/11/2022 DEXA: Colonoscopy: Yes, no longer gets them Endoscopy: No Covid Vac: Yes Flu Vac: Yes PV: Yes Shingles Vac: Yes. * Billing Information: * Visit Code:?? 38786 Office Visit, Est Pt., Level 3. * [...] she is urinating quite often. Concerned that Truea is not working the way it used [...]
--- OUTSIDE RECORDS SUMMARY | 2024-10-08 14:08 | XMS_ITS ---
Author Organization [facility], [facility] Address [address] [place] [phone] Care Team Providers Care Foreign Legal Consultant Name Role Phone SHANDRA MIDDLETON Primary Care Provider REASON FOR VISIT f/u meds, pain Encounters Encounter Location Date Provider Diagnosis [address] [id number] 01/01/2024 SHANDRA MIDDLETON PLAN OF TREATMENT No Information Progress Notes * JACKIE COLLINSOB:[birth year] (89 yo F)Acc No.[id number]:01/01/2024 Progress Notes Patient:??KAY COLLINS Provider:??Shandra Middleton DNP :1935?Age:88 Y?Sex:Fe male Date:01/01/2024 Phone: Address:[address] [place] [address], [address] , [place], [id number] Subjective: * Chief Complaints: * ?1. F/u meds, pain. * Medical History:?? Objective: Assessment: Plan: * Treatment: * Billing Information: * Visit Code:?? * Procedure Codes:?? * Sign off status: Pending * Provider:??Shandra Middleton DNP Date:??0 01/01/2024
--- OUTSIDE RECORDS SUMMARY | 2024-10-08 14:09 | XMS_ITS | Data Portability ---
Author Organization [facility] Pain Managem michael, [facility] Address [address] [facility] [address] [place] [address] Care Team Providers Care Pasta Maker Name Role Phone SHALA DELGADO Referring Provider [...] booked for the same. She needs a lumber driver on the day of the procedure. [...] [id number], [address] [place], [address], 6 11:36:11 Celebrex 200 mg capsule 2015 016 [id number], [address] [place], [address], 6 08:56:14 Patient TargetsNo targets recorded. Patient Instructions Encounter Date Encounter Id Patient Instructions Last Modified By Organization Details Last Modified Time 08/16/2015 [id number] She was advised against bed rest lasting longer than four days and to continue activities as tolerated. [email or web address] Not available 08/16/2015 13:04:51 09/01/2015 [id number] She was advised against bed rest lasting longer than four days and to continue activities as tolerated. [email or web address] Not available 09/01/2015 15:28:37 09/07/2015 [id number] She was advised against bed rest lasting longer than four days and to continue activities as tolerated. [email or web address] Not available 09/08/2015 14:18:24 09/13/2015 [id number] She was advised against bed rest lasting longer than four days and to continue activities as tolerated. tmanikantan Not available 09/13/2015 14:59:45 09/23/2015 [id number] She was advised against bed rest lasting longer than four days and to continue activities as tolerated. [email or web address] Not available 09/27/2015 10:03:45 Reason for Referral None Reported. Results Created Date Observation Date Name Description Value Unit Range Abnormal Flag Note LastModifiedBy Organization Detail LastModifiedTime 08/22/19 16 08/22/2015 x-ray , tony mclaughlin, 2 views No observ ation record ed. [facility] Diagnosit Imaging Dept [address] [place] [address], [address], 09/01/2015 15:28:37 Result Notes None recorded. Problems Name Problem SNOMED Code Status Onset Date Resolution Date Notes Provider Name and Address Organization Details Recorded Time Enthesopathy of hip region 00550988 Active Johnny henning MD [address] , [address], [place], [address], [place] [facility] 6 11:36:10 Lumbosacral spondylosis without myelopathy 90688432 Jillian henning MD [address] , [address], [place], [address], [place] [facility] 6 11:36:10 Lumbar post-laminecto my syndrome 384524436 Jillian henning MD [address] , [address], [place], [address], [place] [facility] 6 11:36:10 Lumbosacral radiculitis 06497892 Jillian henning MD [address] , [address], [place], [address], [place] [facility] 6 11:36:10 Disorder of bursa of shoulder region 89105929 Active Johnny henning MD [address] [facility] , [address], [place], [address], [place] [facility] 6 11:36:11 Muscle pain 25202771 Active Johnny henning MD [address] [facility] , [address], [place], [address], [place] [facility] 6 11:36:10 Problem Notes None recorded. Procedures Surgical History Date Name Laterality Status Provider Name and Address Organization Details Recorded Time 09/13/19 16 Radiofrequency of Lumbar/Sacral medial branches supplying the facets under fluoroscopic guidance completed Johnny Montanez MD [address] [facility] , [address], [place], [address], [place] [facility] 09/14/2015 14:17:33 09/07/19 16 Lumbar median branch block under fluroscopic guidance completed Johnny Montanez MD [address] [facility] , [address], [place], [address], [place] [facility] 09/08/2015 14:23:25 08/16/19 16 Fluoroscopic Guided Lumbar Facet Steroid Injections of levels completed Johnny Montanez MD [address] [facility] , [address], [place], [address], [place] [facility] 08/16/2015 13:09:50 03/08/20 15 Fluoroscopic Guided Lumbar Facet Steroid Injections of levels completed Johnny Montanez MD [address] [facility] , [address], [place], [address], [place] [facility] 03/09/2015 [...] Time 08/22/2015 x-ray, shoulder, 2 views completed [facility] Dept [address] [place] [address], [place], [address], 09/01/2015 15:28:37 Procedure Notes None recorded. Medical [...] Smoker Quit x 40 years Not Available [facility] 05/13/2020 03:16:11 What Is Your Level Of Alcohol Consumption? Moderate Wine [id number] Information not available 05/13/2020 Are You Currently Employed? No [id number] Information not available 05/13/2020 Which Illicit Or Recreational Drugs Have You Used? No [id number] Information not available 05/13/2020 Education 12 Information no t available 03/01/2015 Live Alone Or With Others? Alone Information not available 03/01/2015 Marital Status Informatio n not available 03/01/2015 How Many Years Have You Smoked Tobacco? 20 [id number] Information not available 05/13/2020 Sex: Unknown Functional [...] SNOMED-CT Code Diagnosis ICD10 Code Diagnosis Note 24129 [facility] [address] [place] [address] 03/01/2015 10:09:29 03/02/2015 11:29:26 Lumbar post-laminectomy syndrome 225977448 Lumbosacra l radiculitis 55206220 Lumbosacra l spondylosis without myelopathy 31996362 Enthesopat hy of hip region 96272498 68713 [facility] [address] [place] [address] 03/08/2015 14:21:23 03/09/2015 09:25:14 Lumbosacral spondylosis without myelopathy 78271770 Enthesopat hy of hip region 07787320 Lumbosacra l radiculitis 27509953 Lumbar post-laminectomy syndrome 089452080 03775 [facility] [address] [place] [address] 04/11/2015 14:50:34 04/12/2015 09:13:56 Lumbosacral spondylosis without myelopathy 58831817 Enthesopat hy of hip region 13141444 Lumbosacra l radiculitis 51090256 Lumbar post-laminectomy syndrome 907513763 74112 Johnny Montanez MD [facility] [address] [place] [address] 08/16/2015 10:11:47 08/16/2015 14:46:00 Lumbosacral spondylosis without myelopathy 00753007 M47.817 Enthesopat hy of hip region 99728748 M76.9 Lumbosacra l radiculitis 42019929 M54.17 Lumbar post-laminectomy syndrome 827511007 M96.1 Disorder o f bursa of shoulder region 83010222 M25.812 91398 Johnny Montanez MD PAIN OFFICE [address] [place] [address] 09/01/2015 14:03:53 09/01/2015 15:37:11 Lumbosacral spondylosis without myelopathy 40873607 M47.817 Enthesopat hy of hip region 85409897 M76.9 Disorder o f bursa of shoulder region 36220722 M25.812 Lumbosacra l radiculitis 07895853 M54.17 Lumbar post-laminectomy syndrome 786950616 M96.1 02088 Johnny Montanez MD [facility] [address] [place] [address] 09/07/2015 09:36:32 09/08/2015 14:24:03 Lumbosacral spondylosis without myelopathy 83801002 M47.817 Enthesopat hy of hip region 07948140 M70.61 Disorder o f bursa of shoulder region 86161412 M25.812 Lumbosacra l radiculitis 38658476 M54.17 Lumbar post-laminectomy syndrome 468972450 M96.1 10607 Johnny Montanez MD [facility] [address] [place] [address] 09/13/2015 10:08:37 09/13/2015 15:13:45 Lumbosacral spondylosis without myelopathy 87689090 M47.817 Lumbar post-laminectomy syndrome 764216059 M96.1 Enthesopat hy of hip region 01579281 M70.61 Disorder o f bursa of shoulder region 16243737 M25.812 Lumbosacra l radiculitis 19913395 M54.17 33788 Johnny Montanez MD [facility] [address] [place] [address] 09/23/2015 08:47:47 09/27/2015 11:36:33 Lumbosacral spondylosis without myelopathy 04660833 M47.817 Lumbar post-laminectomy syndrome 021426967 M96.1 Lumbosacra l radiculitis 39769502 M54.17 Muscle pain 71246770 M79 .1 Enthesopat hy of hip region 26467298 M70.61 Disorder o f bursa of shoulder region 59658762 M25.812 Health Concerns Section Related Observation LastModified by Organization Detai ls LastModified Time None Recorded Concern Status LastModified by Organization Details LastModified Time None Recorded Advance Directives Directive None Recorded Payers Encounter Date Sequence Insurance Name Policy Number Policy Blanco Covered Member ID Blanco Member ID Guarantor Name 08/16/2015 1 [place]: [employer] Brenda M Andras [id number] Brenda Andras 08/16/2015 2 [facility] (MEDICARE SUPPLEMENT) Brenda Andras [id number] Brenda Andras 09/01/2015 1 [place]: [employer] Brenda M Andras [id number] Brenda Andras 09/01/2015 2 [facility] (MEDICARE SUPPLEMENT) Brenda Andras [id number] Brenda Andras 09/07/2015 1 MEDICARE [place]: [employer] Brenda M Andras [id number] Brenda Andras 09/07/2015 2 [facility] (MEDICARE SUPPLEMENT) Brenda Andras [id number] Brenda Andras 09/13/2015 1 [place] Brenda M Andras [id number] Brenda Andras 09/13/2015 2 [facility] (MEDICARE SUPPLEMENT) Brenda Andras [id number] Brenda Andras 09/23/2015 1 MEDICARE [place]: [employer] Brenda M Andras [id number] Brenda Andras 09/23/2015 2 [facility] (MEDICARE SUPPLEMENT) Brenda Andras [id number] Brenda Andras Notes Date Note Type [...] her left shoulder. Johnny Montanez MD [address] [facility] , [address], [place], [address], [facility] - Pain Management 08/18/2015 09:24:14 09/01/2015 text/html She is here for a follow up after a left shoulder X-ray. 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 She states she has seen a PA at [facility] and she recommended a total knee [...] an issue presently. Johnny Montanez MD [address] [facility] , [address], [place], [address], [facility] - [facility] 09/02/2015 11:09:45 09/07/2015 text/html She is here for a trial of right median branch block under fluoroscopic guidance at L4, L5and S1 medial branches. Johnny Montanez MD [address] [facility] , [address], [place], [address], [facility] - Pain Management 09/08/2015 15:45:44 [...] MD [address] , [address], [place], [address], [facility] - Pain Management 09/14/2015 14:17:41 09/23/2015 text/html She is here for a follow up. She states she is noticing pain in her muscles in the low back and she had difficulty sleeping due to pain and muscle spasms since the radiofrequency ablation. She has been applying ice. She has seen Tamika at [facility] and has started synvisc injections for [...] bladder or bowel incontinence. Johnny Montanez MD [address] [place] [address] , [address], [place], [address], [facility] 10/03/2015 08:52:43 OBGyn Episode No OBEpisode recorded.
--- OUTSIDE RECORDS SUMMARY | 2024-10-08 14:09 | XMS_ITS ---
Author Organization [facility], [facility] Address [address] [place], [place] [address] Care Team Providers Care Digital Associate Media Director Name Role Phone SHANDRA MCDONALD Primary Care Provider [phone] REASON FOR VISIT Refills MEDICATIONS Medication SIG [...] Active Encounters Encounter Location Date Provider Diagnosis [address] [id number] 01/22/2024 SHANDRA MCDONALD Sacroiliitis, not elsewhere classified [...] * JACKIE COLLINSOB:[birth year] (88 yo F)Acc No.[id number]:01/22/2024 Patient:??KAY COLLINS :1935?Age:88 Y?Sex:Fe male Phone: Address:[address] , [address] , [place] [address] * Refills?? Refill oxyCODONE HCl Tablet, 5 [...]
--- OUTSIDE RECORDS SUMMARY | 2024-10-08 14:09 | XMS_ITS | Data Portability ---
Author Organization [place] [facility], _[facility] Address [address] [place] [address] Assessment Encounter Date Assessment Date Assessment LastModified [...] 143 mm[Hg] 79 mm[Hg] Yun Harrell MD [address] [place] [address], [address] [place], [place] - [facility] 8 16:35:36 Date Recorded Body temperature Heart rate Respiratory rate Systolic blood pressure Diastolic blood pressure Provider Name and Address Organization Details Last Updated DateTime 8 98.5 [degF] 80 /min 18 /min 125 mm[Hg] 59 mm[Hg] GUILHERME Cazares NP [address] [place], [address] [place] [address] [facility] 8 10:16:59 Date Recorded Body temperature Heart rate Respiratory rate Systolic blood pressure Diastolic blood pressure Provider Name and Address Organization Details Last Updated DateTime 8 99.7 [degF] 68 /min 18 /min 103 mm[Hg] 57 mm[Hg] GUILHERME Cazares NP [address] [place] [address], [address] [place] [address] [facility] 8 09:45:06 Date Recorded Body temperature Heart rate Systolic blood pressure Diastolic blood pressure Provider Name and Address Organization Details Last Updated DateTime 12/05/2017 97.8 [degF] 80 /min 147 mm[Hg] 78 mm[Hg] GUILHERME HALL NP [address] [place] [address], [address] [facility] 12/05/2017 10:18:56 Date Recorded Body weight Body temperature Heart rate Oxygen saturation Oxygen saturation in Arterial blood by Pulse oximetry Systolic blood pressure Diastolic blood pressure Provider Name and Address Organization Details Last Updated DateTime 8 [address].5 2 g 97.8 [degF] 72 /min 96 % 96 % 99 mm[Hg] 41 mm[Hg] GUILHERME Cazares NP [address] [place] [address], [address] [place] [address] [facility] 8 09:38:58 Social History Question Answer Notes LastModified by Organizat ion Details LastModified Time Tobacco Smoking Status Former Smoker Yun Harrell MD [address] [place] [address], [address], [facility] 12/01/2017 16:36:41 What Is [...] SNOMED-CT Code Diagnosis ICD10 Code Diagnosis Note [id number] Yun Harrell MD [facility] [address] [place] [address] 12/01/2017 16:22:36 12/06/2017 14:56:06 Spinal stenosis of lumbar region 19298568 M48.061 s/p decompress ion, pain is controlled on tylenol, dilaudid, fentanyl patch, PT, OT, wound care Essential hypertension 19398502 I10 cont amlodipin, losartan Hyperlipidemia 19138972 E78.5 cont lipitor Gastroesop hageal reflux disease without esophagitis 629544934 K21.9 cont PPI Constipation 98586604 K5 9.00 colace, senna, miralax ,enema if needed Depressive disorder 3548 9007 F32.9 cont zoloft, trazodone [id number] GUILHERME HALL NP [place] [address] [place] [address] 12/02/2017 10:05:52 12/04/2017 11:11:45 Spinal stenosis of lumbar region 39306333 M48.061 s/p decompress ion, pain is controlled on tylenol, dilaudid, fentanyl patch, cont with PT and OT here; incision is covered with steri stips and DPD Essential hypertension 89255975 I10 cont amlodipin, losartango od BP control Hyperlipidemia 52298964 E78.5 cont lipitor Gastroesop hageal reflux disease without esophagitis 141984705 K21.9 cont PPI Constipation 62508956 K5 9.00 good BM; cont current med regiment Depressive disorder 3548 9007 F32.9 cont zoloft, trazodone [id number] GUILHERME HALL NP [facility] [address] [place] [address] 12/04/2017 09:44:05 12/06/2017 14:28:20 Spinal stenosis of lumbar region 85470159 M48.061 s/p decompress ion, pain is controlled on tylenol, dilaudid, fentanyl patch, cont with PT and OT here; incision is covered with steri stips. Essential hypertension 65279566 I10 cont amlodipin, losartango od BP control Hyperlipidemia 25801708 E78.5 cont lipitor Gastroesop hageal reflux disease without esophagitis 165237519 K21.9 cont PPI Constipation 90119394 K5 9.00 good BM; cont current med regiment Depressive disorder 9035 9007 F32.9 cont zoloft, trazodone Leukocytosis 512899832 D 72.829 wbc 12; pt has a fever; will get UA [id number] GUILHERME HALL NP [facility] ill House [address] [place] [address] 12/05/2017 10:17:51 12/10/2017 16:37:53 Spinal stenosis of lumbar region 02866197 M48.061 s/p decompress ion, pain is controlled on tylenol, dilaudid, fentanyl patch, cont with PT and OT here; incision is covered with steri stips.pt jose be d/c home in a few days Leukocytosis 292823186 D 72.829 UA neg, afebrile; cbc pending from today Essential hypertension 97484409 I10 cont amlodipine , losartango od BP control Constipation 81150030 K5 9.00 good BM; cont current med regiment [id number] GUILHERME HALL NP [facility] [address] [place] [address] 12/06/2017 09:34:53 12/13/2017 12:45:01 Spinal stenosis of lumbar region 21314682 M48.061 s/p decompress ion, pain is controlled on tylenol, dilaudid, fentanyl patch,will give rx for fentalyn pathc #4 to go home withMass pat checkedf/u wit [place] in 8 weeks Essential hypertension 07949317 I10 cont amlodipin, losartan Hyperlipidemia 34297430 E78.5 cont lipitor Gastroesop hageal reflux disease without esophagitis 519514000 K21.9 cont PPI Constipation 10804899 K5 9.00 colace, senna, miralax ,enema if needed Depressive disorder 2345 9007 F32.9 cont zoloft, trazodone Health Concerns Section Related Observation LastModified by Organization Detai ls LastModified Time None Recorded Concern Status LastModified by Organization Details LastModified Time None Recorded Advance Directives Directive None Recorded Payers Encounter Date Sequence Insurance Name Policy Number Policy Blanco Covered Member ID Blanco Member ID Guarantor Name 12/01/2017 1 [place] [employer] Brenda M Andras [id number] Brenda Andras 12/02/2017 1 [place] [employer] Brenda M Andras [id number] Brenda Andras 12/04/2017 1 [place] [facility] Brenda M Andras [id number] Brenda Andras 12/04/2017 2 [facility] - MEDICARE ENHANCE (INDEMNITY PLAN) Brenda Andras [id number] Brenda Andras 12/05/2017 1 [place] [employer] Brenda M Andras [id number] Brenda Andras 12/05/2017 2 [facility] - MEDICARE ENHANCE (INDEMNITY PLAN) Brenda Andras [id number] Brenda Andras 12/06/2017 1 [place] [facility] Brenda M Andras [id number] Brenda Andras 12/06/2017 2 [facility] - MEDICARE ENHANCE (INDEMNITY PLAN) Brenda Andras [id number] Brenda Andras Notes Date Note Type Note Provider Name and Address Organization Details Recorded Time 12/01/2017 text/html seen for admission- came from [facility] where pt had L3-S1 decompression.Pt tolerated procedure well, pain is controlled on current fentanyl patch and dilaudidPt came to for further care Yun Harrell MD [address] [place], [address], [facility] 12/01/2017 16:43:01 12/02/2017 text/html seeing pt today for f/u; continues to work with therapy here, making progress. Pt came from [facility] where pt had L3-S1 decompression.Pt tolerated procedure well, pain is controlled on current fentanyl patch and dilaudid. GUILHERME HALL NP [address] [place], [address], [facility] 12/02/2017 10:21:10 12/04/2017 text/html seeing pt today for f/u; continues to work with therapy here, making progress. Pt came from [facility] where pt had L3-S1 decompression.Pt tolerated procedure well, pain is controlled on current fentanyl patch and dilaudid. GUILHERME HALL NP [address] [place], [address], [facility] 12/04/2017 12:59:51 12/05/2017 text/html seeing pt today for f/u; continues to work with therapy here, making progress.Ua was obtained yesterday; pt had elevated wbc Pt came from [facility] where pt had L3-S1 decompression.Pt tolerated procedure well, pain is controlled on current fentanyl patch and dilaudid. GUILHERME HALL NP [address] [place], [address], [facility] - [facility] 12/07/2017 15:19:06 12/06/2017 text/html seeing pt today for d/c; pt has done well with therapy here, made progress, will be d/c home tomorrow. GUILHERME HALL NP [address] [place], [address], [facility] - [facility] 12/08/2017 11:15:02 OBGyn Episode No OBEpisode recorded.
--- OUTSIDE RECORDS SUMMARY | 2024-10-08 14:09 | XMS_ITS ---
Author Organization [facility] Care Team Providers Care Employee Benefits Director Name Role Phone Yun Harrell Unavailable Unavailable Allergies and adverse reactions No Known Allergies Care Team Name Role Address Phone Organization Dates Yun Harrell PCP [facility] @ [address], [address], [place] (Office): : : (Pager): [facility] 11/29/2017 - 12/07/2017 Goals Section Description Status Target Date Mrs. Wolf will ambulate 60 0' with , PA, through the next review date. Active 02/27/2018 Ms. Wolf back surgical incision will heal with out complications Active 02/27/2018 Ms. Wolf will be free of falls through the rev iew date. Active 02/27/2018 Ms. Wolf will have intact skin, free of redness, blisters or discoloration by/through review date. Active 02/27/2018 Ms. Wolf will verbalize ad equate relief of pain or ability to cope with incompletely relieved pain through the review date. Active 02/27/2018 Mental Status Section Date Assessment Total Score Description 12/07/2017 BIMS 15 cognitively int act CAM 0 No delirium ind icated PHQ-9 02 minimal depress ion 12/06/2017 BIMS 15 cognitively int act CAM 0 No delirium ind icated PHQ-9 02 minimal depress ion Problems Problem # Description Date of onset Resolved Date Code CodeSystem Concern Status 1 ANXIETY DISORDER, UNSPECIFIED 11/29/[address] active 2 ENCOUNTER FOR OTHER SPECIFIED AFTERCARE 11/29/[address] active 3 ENCOUNTER FOR OTHER SPECIFIED SURGICAL AFTERCARE 11/29/[address] active 4 ESSENTIAL (PRIMARY) HYPERTENSION 11/29/[address] active 5 GASTRO-ESOPHAGEAL REFLUX DISEASE WITHOUT ESOPHAGITIS 11/29/[address] active 6 HYPERLIPIDEMIA, UNSPECIFIED 11/29/[address] active 7 INSOMNIA, UNSPECIFIED 11/29/[address] active 8 MAJOR DEPRESSIVE DISORDER, SINGLE EPISODE, UNSPECIFIED 11/29/[address] active 9 MUSCLE SPASM OF BACK 11/29/[address] active 10 MUSCLE WEAKNESS (GENERALIZED) 11/29/[address] active 11 OTHER DORSALGIA 11/29/[address] a ctive 12 SPINAL STENOSIS, SITE UNSPECIFIED 11/29/[address] active 13 UNSPECIFIED OSTEOARTHRITIS, UNSPECIFIED SITE 11/29/[address] active Reason for Referral No Reasons for Referral Entered Social History Social History Observation Description Start Date End Date Code Code System Current Smoking Status Tobacco smoking consumption unknown 492938832 SNOMED CT Sex Assigned At Female 1935 [address] [facility] Vital Signs Code Code System Vitals Name Values and Units Timing Information 28234-1 LOINC Pain Level Value=0.0 12/07/2017 9279-1 LOINC Respiratory Rate Value=18.0 Units=/m in 12/07/2017 8462-4 LOINC Blood Pressure-Diastolic Value=67 Un its=mmHg 12/07/2017 8480-6 LOINC Blood Pressure-Systolic Volkx=049 Un its=mmHg 12/07/2017 8310-5 LOINC Body Temperature Value=98.0 Units=?? F 12/07/2017 8867-4 LOINC Heart rate Value=93.0 Units=/min 06/2018 07587-4 LOINC O2 % BldC Oximetry Value=94.0 Units= % 12/07/2017 53201-9 LOINC Weight Szmge=934.0 Units=Lbs 01/2018
--- OUTSIDE RECORDS SUMMARY | 2024-10-08 14:09 | XMS_ITS | Patient Health Record ---
Author Organization [facility] Address [address] [place] [address] Care Team Providers Care Director Mortgage Name Role Phone Ling Middleton DNP Primary Care Provider Elbert Jose Jr Unavailable Allergies Allergen (clinical drug ingredient) Drug/Non Drug Allergy documented on EMR Reaction Allergy Type Onset Date Status chlorpheniramine Allergy Unknown Drug Allergy Active Reason For Referral No Information Medications Medication SIG (Take, Route, Frequency, Duration) Notes [...] a day for 30 day(s) Active Ipratropium [place] 0.06 % 2 sprays in e ach nostril Nasally Three times a day for 4 day(s) Active Amoxicillin 500 MG 1 capsule Orally NEEDED FOR DENTIST Active Calcium 500 MG 1 tablet Orally Once a day Active Tramadol & Dietary Manage Prod Active Vitamin D3 Ultra Potency 83082 UNIT 1 tablet Orally as directed Active Immunizations Vaccine Route Administration Date Status Comme nts Influenza Unknown 03/29/2016 Administered Influenza Unknown 02/29/2020 Administered Influenza Unknown 05/16/2022 Administered Social History Alcohol Screen Question Answer Notes Did you [...] Never (0 point) Points 3 Interpretation Positive Section Notes: wine at dinner wine at dinner wine at dinner wine at dinner wine at dinner wine at dinner Problems Problem Type SNOMED Code ICD Code Onset Dates Problem Status W/U Status Risk Notes Problem 00750724 Rectal bleeding (K62.5) Active confirmed Problem 946080078 Gastro-esophagea l reflux disease without esophagitis (K21.9) Active confirmed Problem 69320881 Cough (R05) Active confirmed Problem 079512350 Urinary incontinence, unspecified type (R32) Active confirmed Plan Of Treatment Pending Test Test Name Order Date XR GI SERIES 07/14/2015 Insurance Providers Payer Name Payer Address Payer Phone Subscriber Number Group Number Insured Name Patient Relationship to Insured Coverage Start Date Coverage End Date MEDICARE OF [place] [address] [place] [address] [id number] KAY COLLINS Self - patient is the insured [employer] [address] [place] [phone] [id number] KAY COLLINS Self - patient is the insured Medical (General) History Medical History History ICD Code EGD/colonoscopy 01/03/2006. No evidence of Morse's esophagus. Hyperplastic colon polyp. Seasonal allergic rhinitis hypertension hypercholesterolemia scoliosis arthritis depression Surgical History Surgery Date(Month/Year) Vocal cord polyp 2006 Multiple back and neck surgeries rotator cuff surgery both knee replacement left
== END 2024-10-08 12:03 | disposition home or self-care (01) ==
LOC: HO.HUSH 11:00
PROVIDERS: PCP Physician Assistant; Visit Provider Nurse Practitioner Family
DX: N28.9 Disorder of kidney and ureter, unspecified (principal); N32.81 Overactive bladder; R32 Unspecified urinary incontinence; Z13.9 Encounter for screening, unspecified
CPT/HCPCS: 99203

== ENCOUNTER → 2024-10-08 10:59 | Outpatient (BNVA) | payer MEDICARE, OTHER, SELFPAY | PROVIDERS: PCP Physician Assistant; Visit Provider Nurse Practitioner Family | DX: M81.0 Age-related osteoporosis without current pathological fracture (principal); N28.9 Disorder of kidney and ureter, unspecified; N32.81 Overactive bladder; R32 Unspecified urinary incontinence | CPT/HCPCS: 81003; 96372; 99202; 99212; J3111 ==

== ENCOUNTER 2024-10-08 14:56 | Outpatient (AMB) | payer MEDICARE, OTHER, SELFPAY ==
--- NOTE | 2024-10-08 15:00 | MHC.OFFVIS ---
Vital Signs 10/08/24 15:03 Height 4 ft 10.25 in Weight 177 lb 0.499 oz BMI 36.7 BP 132/58 L Blood Pressure Location Rt brachial Position Sitting Pulse 88 Pulse Source Pulse Oximeter Pulse Oximetry (%) 98 Oxygen Delivery Method Room Air Intake Visit Reasons: Osteoporosis/ evenity #3 Intake Note: Patient present today for Osteoporosis and third Evenity injection. Router Setter Required: No Accompanied by: Self / Same As Patient Allergies bee pollen Allergy (Unknown, Verified 10/08/24 15:04) Unknown house dust mite Allergy (Unknown, Verified 10/08/24 15:04) Unknown adhesive tape Adverse Reaction (Intermediate, Verified 10/08/24 15:04) Rash Medication List - Last Reconciled 10/08/24 by Rommel Lopez MD albuterol sulfate 90 mcg/actuation 2 puffs PO Q6H PRN amlodipine 5 mg PO DAILY atenolol 25 mg PO DAILY cholecalciferol (vitamin D3) 50 mcg PO DAILY fluticasone furoate-vilanterol 200-25 mcg/dose (Breo Ellipta) 1 ea inhalation DAILY fluticasone propionate 50 mcg/actuation 1 spray intranasal BID ipratropium bromide 2 sprays intranasal Q12H losartan 50 mg PO DAILY oxycodone 5 mg PO Q8H PRN 28 days oxycodone myristate CR-ER (Xtampza ER) 9 mg PO Q12H 28 days pantoprazole 40 mg PO DAILY@0630 rivaroxaban (Xarelto) 20 mg PO QPM 90 days romosozumab-aqqg (Evenity) 210 mg (2.34 mL) subcut .q month 12 months sertraline 100 mg PO DAILY trazodone 100 mg PO BEDTIME vibegron (Gemtesa) 75 mg PO DAILY walker A rolling walker with seat use daily As directed HPI Comments Details: 89 YO Female is seen in consultation at the request of PCP for Osteoporosis. First diagnosed in 25 yrs ago .Took Fosamax for 1 yr . 25 yrs ago . Never saw endo before . Tolerated treatment well without complication. history of pathologic fracture in right wrist when falling but no ONJ. Has several servings of dietary calcium per day in the form of cheese, broccoli . Stopped Taking Calcium supplement. Takes 2000 IU of Vitamin D daily. Takes PPI, takes anticoagulant Xarelto , antiepileptic or glucocorticoid medication. Does weight bearing exercise 2 days per week in the form of weight exercises . Fracture history: No Height loss: Yes SURGICAL TECH history: menarche at age12 - menopause at age 51 - had menses each mo Denies history of Kidney stones: Has family history of Osteoporosis in mother and hip fracture.Sister has osteoporosis UTD on dental cleanings and sees dentist every 6 months. No planned upcoming dental work or extractions. DXA dated 02/28/24:FINDINGS: LEFT FEMUR, NECK: Current: BMD 0.780 g/cm2, Z-score 0.3, T-score -1.9, osteopenia. Baseline: BMD 0.774 g/cm2. LEFT FEMUR, TOTAL: Current: BMD 0.804 g/cm2, Z-score 0.4, T-score -1.6, osteopenia, 5.0% decrease from baseline (<5% change is not significant). Baseline: BMD 0.846 g/cm2. LEFT FOREARM RADIUS 33%: BMD 0.644 g/cm2, Z-score 0.7, T-score -2.6, osteoporosis. IDENTIFIED RISK FACTORS: Early menopause, secondary osteoporosis, height loss. HISTORY OF FRACTURE: None listed. MEDICATIONS: Vitamin D. MM/XR DEXA appendicular skeleton IMPRESSION: 1. DIAGNOSIS: Osteoporosis based on the lowest T-score value of -2.6 in the forearm radius 33% applying World Health Organization criteria. Secondary workup was negative. Currently on Evenity 3 rd injection today. . She has experienced significant back pain both in the low and mid-back regions, affecting her ability to lay down comfortably. Her pain has shown improvement following a series of injections, with the third dose being administered today. There were previous issues with sleeping due to leg cramps. She uses topical Volteran for occasional foot pain with good effect and has a prior wrist fracture without any history of vertebral fractures. [facility] Medical History Generalized anxiety disorder Insomnia Major depression, recurrent, chronic Arthritis High blood cholesterol COPD (chronic obstructive pulmonary disease) Urge incontinence Joint pain Chronic back pain HTN (hypertension) Bleeding hemorrhoid Back pain with history of spinal surgery Surgical History (Reviewed 10/08/24 @ 15:04 by Kanchan Worthington [facility]) History of back surgery History of surgery Family History Father Thrombosis Mother Diabetes Heart rate problem Social History Household Members: None Housing: Apartment Do you presently have visiting nurse or other home services: Yes (BOOSTER ASSEMBLER for housekeeping 2 times per week) Patient Tobacco Use Status: Former Tobacco user Tobacco use type: Cigarette Cigarettes Per Day: 15 Years Smoked: 10 e-Cigarette/Vaping Use: Never Used Second Hand Smoke Exposure: No Substance Use Type: Painkillers service: No Current occupational status: retired Cognitive needs: No Hearing needs: Yes (hearing aids) Vision needs: No Physical Exam Vital Signs: Last Vital Signs Pulse 88 10/08/24 15:03 BP 132/58 L 10/08/24 15:03 Pulse Ox 98 10/08/24 15:03 Oxygen Delivery Method Room Air 10/08/24 15:03 BMI result Body Mass Index 36.7 Results AMB Urinalysis, Automated UA Leukoctes 0 Yenny/uL Last Edit by Jarrett Coon on 10/08/24 11:26 UA Nitrite Last Edit by Jarrett Coon on 10/08/24 11:26 UA Urobilinogen 0.2 mg/dL Last Edit by Jarrett Coon on 10/08/24 11:26 UA Protein 0 mg/dL Last Edit by Jarrett Coon on 10/08/24 11:26 UA pH 6.0 Last Edit by Jarrett Coon on 10/08/24 11:26 UA Blood 0 Dre/uL Last Edit by Jarrett Coon on 10/08/24 11:26 UA Specific [place] 1.015 Last Edit by Jarrett Coon on 10/08/24 11:26 UA Ketone Last Edit by Jarrett Coon on 10/08/24 11:26 UA Bilirubin 0 mg/dL Last Edit by Jarrett Coon on 10/08/24 11:26 UA Glucose 0 mg/dL Last Edit by [employer] Coon on 10/08/24 11:26 Assessment & Plan Assessment & Plan (1) Osteoporosis: Code(s): M81.0 - Age-related osteoporosis without current pathological fracture Category: Medical Plan: This is a 88-year-old white female with a history of osteoporosis of left forearm. Secondary causes were ruled out. According to orthopedic note, The CT of the lumbar spine shows a fusion from L3 to the sacrum, osteoporosis and thoraco lumbar scoliosis. I explained to the patient why she is not a surgical candidate. The main reason is obviously osteoporosis. While the lumbar spine bone density could not be measured, This suggests the presence of severe osteoporosis of the lumbar spine. There is a prior history of wrist fracture Plan is to continue 1200 mg of calcium continue vitamin-D supplementation as well as Evenity for 1 yrs course . The treatment plan for osteoporosis involves continued Evenity injections to enhance bone density and alleviate associated back pain, evident by improved patient symptoms. Following the completion of this series, considering Fosamax for maintaining gains in bone structure is advisable. Monitoring of bone density and coordination for transitioning medication will occur at the conclusion of Evenity therapy. The patient had an opportunity to ask questions regarding treatment plan. The patient expressed understanding and agreement with the above treatment plan. I discussed the ongoing treatment plan with the patient for osteoporosis, emphasizing the importance of continuing the Evenity njections to build bone strength. We reviewed the potential of transitioning to Fosamax post-injection regimen and the noted improvements in back pain, allowing her to rest more comfortably. We talked about the rationale behind this therapy, its anticipated benefits, and the necessity to reassess bone density upon concluding the current treatment. The patient acknowledged understanding and agreement with the planned approach. Patient was informed and verbally consented to the use of an ambient scribe for clinic note documentation during this visit. Coding Level of Care Code Est Pt Level 3 (36289) Diagnoses Osteoporosis M81.0
[2024-10-08 15:03] VITALS: BP 132/58; PULSE 88; O2SAT 98; BMI 36.7
--- OUTSIDE RECORDS SUMMARY | 2024-10-08 18:42 | XMS_ITS | Patient Health Record ---
Author Organization [facility] Address [address] [place] [id number] Care Team Providers Care Cook Short Order Name Role Phone SHANDRA MIDDLETON Primary Care Provider Shelby Johnson Unavailable [phone] ALLERGIES Allergen (clinical drug ingredient) Drug/Non Drug [...] a day for 90 days Active Nystatin 046386 UNIT/GM apply a light dusting to the [...] (primary) hypertension (I10) Active confirmed Essential hypertension (00395487) Problem Moderate persistent asthma, uncomplicated (J45.40) Active confirmed Uncomplicated moderate persistent asthma (957468756) Problem Osteoarthritis of hip, unspecified (M16.9) Active confirmed Osteoarthritis of hip (121179243) Problem Sacroiliitis, not elsewhere classified (M46.1) Active confirmed Solitary sacroiliitis (887809852) Problem Overactive bladder (N32.81) Active confirmed Overactive bladder (460890807) Problem 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) Active confirmed Postmenopa usal atrophic vaginitis (69610239) Problem Atrial fibrillation, unspecified type (I48.91) Active confirmed Atrial fibrillation (71816235) VITAL SIGNS Heart Rate 55 /min 01/22/2024 Temperature 98.4 degrees Fahrenheit 12/11/2023 Height-cm 149.86 cm 01/22/2024 Oximetry 95 % 01/22/2024 Blood pressure diastolic 68 mm Hg 01/22/2024 Weight-kg 79.2 kg 01/22/2024 Height 59 in 01/22/2024 Blood pressure systolic 122 mm Hg 01/22/2024 Weight 174.6 lbs 01/22/2024 BMI 35.26 kg/m2 01/22/2024 Encounters Encounter Location Date Provider Diagnosis [facility], [address], [place] [id number] 01/01/[address] [id number] 01/22/2024 SHANDRA MIDDLETON Moderate persistent asthma, uncomplicated J45.40 ; Overactive bladder N32.81 and Atrial fibrillation, unspecified type I48.[address] [id number] 10/29/2023 SHANDRA MIDDLETON Cervicalgia M54.2 ; Sacroiliitis, not elsewhere classified M46.1 ; Overactive bladder N32.81 and Moderate persistent asthma, uncomplicated J45.[address] [id number] 12/03/2023 Shelby Johnson Skin rash R21 [address] [id number] 12/11/2023 Shelby Johnson Shortness of breath R06.02 ; Wheezing R06.2 ; Acute cough R05.1 and Pneumonia of right lung due to infectious organism, unspecified part of lung J18.[address] [id number] 12/24/2023 SHANDRA MIDDLETON Sacroiliitis, not elsewhere classified M46.1 ; Depression, unspecified F32.A ; Moderate persistent asthma, uncomplicated J45.40 and Essential (primary) hypertension I10 [address] [id number] 10/11/[address] [id number] 10/21/2023 SHANDRA MIDDLETON Sacroiliitis, not elsewhere classified M46.[address] [id number] 11/29/2023 SHANDRA MIDDLETON Sacroiliitis, not elsewhere classified M46.[address] [id number] 12/12/[address] [id number] 01/22/2024 SHANDRA MIDDLETON Sacroiliitis, not elsewhere classified [...] and coordination of care. Gil Irizarry BSN, FARM ADVISOR student saw the patient and formulated the [...] by hospital team. She was referred to [facility], we encouraged her to make this [...] 01/22/2024 Other This visit was performed by VETERANS REHABILITATION COUNSELORReed Jacome RN under the supervision of Shandra Middleton, ZINA, FISH BIN TENDER, VETERANS REHABILITATION COUNSELOR-C, VWKB. 10/29/2023 Other Total time spen t [...] Medicare [address] [place] [address] [phone] [id number] ANDKAY AVILES Self - patient is the insured [facility] [address] [place]AKK[place] [phone] [id number] KAY COLLINS Self - patient is the [...]
--- OUTSIDE RECORDS SUMMARY | 2024-10-08 18:42 | XMS_ITS ---
Author Organization [facility] Care Team Providers Care Procurement Assistant Name Role Phone Yun Harrell Unavailable Unavailable Allergies and adverse reactions No Known Allergies Care Team Name Role Address Phone Organization Dates Yun Harrell PCP [facility] @ [address], [address], [place] States (Office): : : (Pager): [facility] 11/29/2017 - 12/07/2017 Goals Section Description Status Target Date Mrs. Wolf will ambulate 60 0' with , CT, through the next review date. Active 02/27/2018 [...] Concern Status 1 ANXIETY DISORDER, UNSPECIFIED 11/29/[address] active 2 ENCOUNTER FOR OTHER SPECIFIED AFTERCARE 11/29/[address] active 3 ENCOUNTER FOR OTHER SPECIFIED SURGICAL AFTERCARE 11/29/[address] active 4 ESSENTIAL (PRIMARY) HYPERTENSION 11/29/[address] active 5 GASTRO-ESOPHAGEAL REFLUX DISEASE WITHOUT ESOPHAGITIS 11/29/[address] active 6 HYPERLIPIDEMIA, UNSPECIFIED 11/29/[address] active 7 INSOMNIA, UNSPECIFIED 11/29/[address] active 8 MAJOR DEPRESSIVE DISORDER, SINGLE EPISODE, UNSPECIFIED 11/29/[address] active 9 MUSCLE SPASM OF BACK 11/29/[address] active 10 MUSCLE WEAKNESS (GENERALIZED) 11/29/[address] active 11 OTHER DORSALGIA 11/29/[address] a ctive 12 SPINAL STENOSIS, SITE UNSPECIFIED 11/29/[address] active 13 UNSPECIFIED OSTEOARTHRITIS, UNSPECIFIED SITE 11/29/[address] active Reason for Referral No Reasons for Referral Entered Social History Social History Observation Description Start Date End Date Code Code System Current Smoking Status Tobacco smoking consumption unknown 438081640 SNOMED CT Sex Assigned At Female 1935 [address]-4 [facility] Vital Signs Code Code System Vitals Name Values and Units Timing Information 84429-3 LOINC Pain Level Value=0.0 12/07/2017 9279-1 LOINC Respiratory Rate Value=18.0 Units=/m in 12/07/2017 8462-4 LOINC Blood Pressure-Diastolic Value=67 Un its=mmHg 12/07/2017 8480-6 LOINC Blood Pressure-Systolic Yyoze=462 Un its=mmHg 12/07/2017 8310-5 LOINC Body Temperature Value=98.0 Units=?? F 12/07/2017 8867-4 LOINC Heart rate Value=93.0 Units=/min 06/2018 84688-9 LOINC O2 % BldC Oximetry Value=94.0 Units= % 12/07/2017 26522-8 LOINC Weight Sxnhl=118.0 Units=Lbs 01/2018
== END 2024-10-08 15:29 | disposition home or self-care (01) ==
LOC: HO.ENCR 14:57
PROVIDERS: PCP Physician Assistant; Visit Provider Internal Medicine Endocrinology, Diabetes & Metabolism
DX: M81.0 Age-related osteoporosis without current pathological fracture (principal)
CPT/HCPCS: 99213

== ENCOUNTER 2024-10-30 12:25 | Outpatient (REF) | payer MEDICARE, OTHER, SELFPAY | END 2024-10-30 12:26 | disposition home or self-care (01) | LOC: HO.LAB 12:25 | PROVIDERS: PCP Physician Assistant | DX: S90.425A Blister (nonthermal), left lesser toe(s), initial encounter (principal); L08.9 Local infection of the skin and subcutaneous tissue, unspecified | CPT/HCPCS: 10060; 87070; 87205; 99212 ==

== ENCOUNTER 2024-10-30 12:25 | Outpatient (AMB) | payer MEDICARE, OTHER, SELFPAY ==
--- NOTE | 2024-10-30 12:44 | AM.OFFWIN_ITS ---
Intake Vital Signs 10/30/24 12:51 Height 4 ft 10 in BP 140/78 H Blood Pressure Location Lt brachial Position Sitting Pulse 81 Pulse Source Pulse Oximeter Pulse Oximetry (%) 98 Intake Visit Reasons: EP-lt leg big toe infected Patient Tobacco Use Status: Former Tobacco user Allergies bee pollen Allergy (Unknown, Verified 10/30/24 12:52) Unknown house dust mite Allergy (Unknown, Verified 10/30/24 12:52) Unknown adhesive tape Adverse Reaction (Intermediate, Verified 10/30/24 12:52) Rash Do you need a note to return to daycare/school/sports/work: No HPI EP-lt leg big toe infected HPI Details This is an 89-year-old female patient who presents to the walk-in clinic with an infection on her left great toe, beneath her toenail. She states that she went for a pedicure about 1 week ago, and later developed throbbing under her right big toenail. She has since noticed there is an abscess there now. She has applied some antibiotic ointment without relief. She denies any pain beyond her toe. Denies any fever/chills. [facility] Medical History Generalized anxiety disorder Insomnia Major depression, recurrent, chronic Arthritis High blood cholesterol COPD (chronic obstructive pulmonary disease) Urge incontinence Joint pain Chronic back pain HTN (hypertension) Bleeding hemorrhoid Back pain with history of spinal surgery Surgical History History of back surgery History of surgery Family History Father Thrombosis Mother Diabetes Heart rate problem Social History Household Members: None Housing: Apartment Do you presently have visiting nurse or other home services: Yes (OPEN HEARTH HELPER for housekeeping 2 times per week) Patient Tobacco Use Status: Former Tobacco user Tobacco use type: Cigarette Cigarettes Per Day: 15 Years Smoked: 10 e-Cigarette/Vaping Use: Never Used Second Hand Smoke Exposure: No Substance Use Type: Painkillers service: No Current occupational status: retired Cognitive needs: No Hearing needs: Yes (hearing aids) Vision needs: No Review of Systems Const All systems reviewed & are unremarkable except as noted in HPI and below Physical Exam Vital Signs: Last Vital Signs Pulse 81 10/30/24 12:51 BP 140/78 H 10/30/24 12:51 Pulse Ox 98 10/30/24 12:51 Const General: cooperative, healthy appearing, comfortable, no acute distress and well developed Limitations: no limitations Resp Effort & Inspection: normal respiratory effort Skin General skin exam: no rashes or lesions noted Extrem Left lower extremity: foot (abscess at tip of L great toe beneath distal end of toenail, mild erythema) Details: toes with normal ROM Psych Appearance: grossly normal Mental Status: mental status grossly normal Speech and movement: Normal speech and movement present Office Procedures I&D Drain 58267-Nwqdunnu of Skin Abscess, simple All charges added?: Procedure code (CPT) selection complete Assessment & Plan Assessment & Plan (1) Blister of toe of left foot with infection: Code(s): S90.425A - Blister (nonthermal), left lesser toe(s), initial encounter; L08.9 - Local infection of the skin and subcutaneous tissue, unspecified Qualifiers: Encounter type: initial encounter Qualified Code(s): S90.425A - Blister (nonthermal), left lesser toe(s), initial encounter; L08.9 - Local infection of the skin and subcutaneous tissue, unspecified Plan: I&D done of abscess of left great toe. Area cleansed with iodine and incised with tip of 25g needle - easily drained purulent fluid. Culture obtained and sen t to lab. Area cleansed with NS and bacitracin/DSD applied. Patient tolerated well and reports significant relief following drainage. Patient does not wish to have p.o. antibiotics at this time. I have prescribed her topical bacitracin instead, and we reviewed use of this. We discussed indications to return to the clinic for further evaluation, including increase in pain, redness, swelling, recurrence of fluid buildup in that toe, fever/chills. Patient verbalizes understanding and agrees to plan. Orders: Orders 2 Routine Culture w Gram Stain Today L08.9 - Local infection of the skin and subcutaneous tissue, unspecified, S90.425A - Blister (nonthermal), left lesser toe(s), initial encounter Medications: New bacitracin Apply to affected area on left great toe three times a day until infection resolved. 1 appl topical Q8H 14 grams 1RF L08.9 - Local infection of the skin and subcutaneous tissue, unspecified, S90.425A - Blister (nonthermal), left lesser toe(s), initial encounter Coding Level of Care Code Est Pt Level 4 (82976) Diagnoses Blister of toe of left foot with infection, initial encounter S90.425A; L08.9 Encounter type: initial encounter CPT Codes I&D Drain - Drain 1: 06608-Pyarfyid of Skin Abscess, simple ([id number])
[2024-10-30 12:51] VITALS: BP 140/78; PULSE 81; O2SAT 98
--- OUTSIDE RECORDS SUMMARY | 2024-10-30 14:17 | XMS_ITS | Patient Health Record ---
Author Organization [facility] [employer] Address [address] [place] [phone] Care Team Providers Care Software Qa System Specialist Name Role Phone SHANDRA MIDDLETON Primary Care Provider [phone] Shelby Johnson Unavailable [phone] ALLERGIES Allergen (clinical drug ingredient) Drug/Non Drug [...] a day for 90 days Active Nystatin 001122 UNIT/GM apply a light dusting to the [...] (primary) hypertension (I10) Active confirmed Essential hypertension (18267444) Problem Moderate persistent asthma, uncomplicated (J45.40) Active confirmed Uncomplicated moderate persistent asthma (662210510) Problem Osteoarthritis of hip, unspecified (M16.9) Active confirmed Osteoarthritis of hip (632257570) Problem Sacroiliitis, not elsewhere classified (M46.1) Active confirmed Solitary sacroiliitis (454569781) Problem Overactive bladder (N32.81) Active confirmed Overactive bladder (038835695) Problem 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) Active confirmed Postmenopa usal atrophic vaginitis (25879765) Problem Atrial fibrillation, unspecified type (I48.91) Active confirmed Atrial fibrillation (03220156) VITAL SIGNS Heart Rate 55 /min 01/22/2024 Temperature 98.4 degrees Fahrenheit 12/11/2023 Height-cm 149.86 cm 01/22/2024 Oximetry 95 % 01/22/2024 Blood pressure diastolic 68 mm Hg 01/22/2024 Weight-kg 79.2 kg 01/22/2024 Height 59 in 01/22/2024 Blood pressure systolic 122 mm Hg 01/22/2024 Weight 174.6 lbs 01/22/2024 BMI 35.26 kg/m2 01/22/2024 Encounters Encounter Location Date Provider Diagnosis [facility], [address], [place] [id number] 01/01/2024 SHANDRA MIDDLETON [address] [id number] 01/22/2024 SHANDRA MIDDLETON Moderate persistent asthma, uncomplicated J45.40 ; Overactive bladder N32.81 and Atrial fibrillation, unspecified type I48.[address] [id number] 12/03/2023 Shelby Johnson Skin rash R21 [address] [id number] 12/11/2023 Shelby Johnson Shortness of breath R06.02 ; Wheezing R06.2 ; Acute cough R05.1 and Pneumonia of right lung due to infectious organism, unspecified part of lung J18.[address] [id number] 12/24/2023 SHANDRA MIDDLETON Sacroiliitis, not elsewhere classified M46.1 ; Depression, unspecified F32.A ; Moderate persistent asthma, uncomplicated J45.40 and Essential (primary) hypertension I10 [address] [id number] 11/29/2023 SHANDRA MIDDLETON Sacroiliitis, not elsewhere classified M46.[address] [id number] 12/12/[address] [id number] 01/22/2024 SHANDRA MIDDLETON Sacroiliitis, not elsewhere classified M46.1 ASSESSMENTS Encounter Date Diagnosis Assessment Notes Treatment Notes Treatment Clinical Notes Section Notes 11/29/2023 Sacroiliitis, not elsewhere classified (ICD-10 - [...] and coordination of care. Gil Irizarry BSN, NURSE PRN student saw the patient and formulated the [...] by hospital team. She was referred to [place] [facility], we encouraged her to make this appointment. Continue with current care plan until this time. She continues to diurese fluid, we will continue to monitor breathing. Provided extensive education to patient and her daughter regarding signs and symptoms that require emergency care 12/11/2023 Acute cough (ICD-10 - R05.1) [employer] swab- nasal- respiratory panel 12/11/2023 Pneumonia of right lung due to infectious organism, unspecified part of lung (ICD-10 - J18.9) 12/24/2023 Essential (primary) hypertension (ICD-10 - I10) Patient is being managed for elevated blood pressure. Her reading in office today was 118/62, an improvement from her previous readings with us. Patient is stable on her current regimen. 01/22/2024 Other This visit was performed by MANAGER INVENTORY CONTROL student Sumi Jacome RN under the supervision of Shandra Middleton DNP, ETIQUETTE TEACHER, MANAGER INVENTORY CONTROL-C, VWKB. 12/03/2023 Other Total time spen t with [...] Medicare [address] [place] [address] [id number] KAY COLLINS Self - patient is the insured [facility] [address] BRINDA THAKKAR [phone] [id number] KAY COLLINS Self - patient is the [...]
--- OUTSIDE RECORDS SUMMARY | 2024-10-30 14:17 | XMS_ITS ---
Author Organization [facility] Address [address] [place] [phone] Care Team Providers Care Entry Level Business Analyst Name Role Phone SHANDRA MIDDLETON Primary Care [...] a day for 90 days Active Nystatin 133665 UNIT/GM apply a light dusting to the [...] unspecified type (I48.91) Active confirmed Atrial fibrillation (94364140) VITAL SIGNS Blood pressure systolic 122 mm Hg 01/22/20 24 Blood pressure diastolic 68 mm Hg 024 Heart Rate 55 /min 01/22/2024 Height 59 in 01/22/2024 Weight 174.6 lbs 01/22/2024 BMI 35.26 kg/m2 01/22/2024 Oximetry 95 % 01/22/2024 Height-cm 149.86 cm 01/22/2024 Weight-kg 79.2 kg 01/22/2024 Encounters Encounter Location Date Provider Diagnosis [address] [id number] 01/22/2024 SHANDRA MIDDLETON Moderate persistent asthma, uncomplicated [...] by hospital team. She was referred to [place] [facility], we encouraged her to make this appointment. Continue with current care plan until this time. She continues to diurese fluid, we will continue to monitor breathing. Provided extensive education to patient and her daughter regarding signs and symptoms that require emergency care 01/22/2024 Other This visit was performed by [facility] student Sumi Jacome RN under the supervision of Shandra Middleton DNP, ART, CLAY CASTER-C, MAURY. PLAN OF TREATMENT Treatment Notes Assessment [...] by hospital team. She was referred to [place] [facility], we encouraged her to make this appointment. Continue with current care plan until this time. She continues to diurese fluid, we will continue to monitor breathing. Provided extensive education to patient and her daughter regarding signs and symptoms that require emergency care Other This visit was perfo rmed by [facility] student Sumi Jacome RN under the supervision of Shandra Middleton DNP, ART, CLAY CASTER-C, MAURY. Progress Notes * JACKIE COLLINSOB:[birth year] (89 yo F)Acc No.[id number]:01/22/2024 Progress Notes Patient:??DENNISMEKAKAY Provider:??Shandra Middleton DNP :1935?Age:88 Y?Sex:Fe male Date:01/22/2024 Phone: Address:[address] [place] [address], [place] [address] , [place], [place] Subjective: * Chief Complaints: * ?1. F/u [...] at the ED, she was feeling extremely pap4sddor and SOB for 2.5 days. At ED [...] Bruise easily, PND - Sinus Infections. 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 ?Lives in [place], [place] in elderly complex, alone. * Medications:??Taking [...] MOUTH EVERY DAY NEEDED , Taking Nystatin 095702 UNIT/GM Powder apply a light dusting to [...] by hospital team. She was referred to [place] [facility], we encouraged her to make this appointment. Continue with current care plan until this time. She continues to diurese fluid, we will continue to monitor breathing. Provided extensive education to patient and her daughter regarding signs and symptoms that require emergency care? 4.??Others?? Notes: This visit was performed by CLAY CASTER student Sumi Jacome RN under the supervision of Shandra Middleton DNP, POLICE OFFICER BOOKING, CLAY CASTER-C, VWCN. ? * Preventive Medicine:?Last CPE: 04/11/2022 DEXA: Colonoscopy: Yes, no longer gets them Endoscopy: No Covid Vac: Yes Flu Vac: Yes PV: Yes Shingles Vac: Yes. * Billing Information: * Visit Code:?? 35596 Office Visit, Est Pt., Level 3. * [...]
--- OUTSIDE RECORDS SUMMARY | 2024-10-30 14:17 | XMS_ITS ---
Author Organization [facility], [facility] Address [address] [place] [phone] Care Team Providers Care Grease Maker Name Role Phone SHANDRA MIDDLETON Primary Care Provider REASON FOR VISIT f/u meds, pain Encounters Encounter Location Date Provider Diagnosis [address] [id number] 01/01/2024 SHANDRA MIDDLETON PLAN OF TREATMENT No Information Progress Notes * JACKIE COLLINSOB:[birth year] (89 yo F)Acc No.[id number]:01/01/2024 Progress Notes Patient:??KAY COLLINS Provider:??Shandra Middleton DNP :1935?Age:88 Y?Sex:Fe male Date:01/01/2024 Phone: Address:[address] [place] [address], [address] , [place], [place] Subjective: * Chief Complaints: * ?1. F/u meds, pain. * Medical History:?? Objective: Assessment: Plan: * Treatment: * Billing Information: * Visit Code:?? * Procedure Codes:?? * Sign off status: Pending * Provider:??Shandra Middleton DNP Date:??0 01/01/2024
--- OUTSIDE RECORDS SUMMARY | 2024-10-30 14:18 | XMS_ITS ---
Author Organization [facility], [facility] Address [address] [place], [place] [id number] Care Team Providers Care Systems Librarian Name Role Phone SHANDRA MCDONALD Primary Care Provider [phone] REASON FOR VISIT Refills MEDICATIONS Medication SIG [...] Encounters Encounter Location Date Provider Diagnosis [address] [id number] 01/22/2024 SHANDRA MCDONALD Sacroiliitis, not elsewhere classified [...] * JACKIE COLLINSOB:[birth year] (88 yo F)Acc No.[id number]:01/22/2024 Patient:??KAY COLLINS :1935?Age:88 Y?Sex:Fe male Phone: Address:[address] , [address] , [place] [address] * Refills?? Refill oxyCODONE HCl Tablet, 5 [...]
--- OUTSIDE RECORDS SUMMARY | 2024-10-30 14:18 | XMS_ITS | Data Portability ---
Author Organization [facility] Pain Managem michael, [facility] Address [address] [facility] [address] [place] [address] Care Team Providers Care Forms Analysis Manager Name Role Phone SHALA DELGADO Referring Provider [phone] ANISHA RALPH Primary Care Provider Assessment Encounter [...] booked for the same. She needs a tour bus driver on the day of the procedure. [...] [id number], [address] [place], [address], 6 11:36:11 Celebrex 200 mg capsule 2015 016 [id number], [address] [place], [address], 6 08:56:14 Patient TargetsNo targets recorded. Patient Instructions Encounter Date Encounter Id Patient Instructions Last Modified By Organization Details Last Modified Time 08/16/2015 [id number] She was advised against bed rest lasting longer than four days and to continue activities as tolerated. [email or web address] Not available 08/16/2015 13:04:51 09/01/2015 [id number] She was advised against bed rest lasting longer than four days and to continue activities as tolerated. [email or web address] Not available 09/01/2015 15:28:37 09/07/2015 [id number] She was advised against bed rest lasting longer than four days and to continue activities as tolerated. [email or web address] Not available 09/08/2015 14:18:24 09/13/2015 [id number] She was advised against bed rest lasting longer than four days and to continue activities as tolerated. [email or web address] Not available 09/13/2015 14:59:45 09/23/2015 [id number] She was advised against bed rest lasting longer than four days and to continue activities as tolerated. [email or web address] Not available 09/27/2015 10:03:45 Reason for Referral None Reported. Results Created Date Observation Date Name Description Value Unit Range Abnormal Flag Note LastModifiedBy Organization Detail LastModifiedTime 08/22/19 16 08/22/2015 x-ray , tony mclaughlin, 2 views No observ ation record ed. [facility] Diagn[facility] Imaging Dept [address] [place] [address], [address], 09/01/2015 15:28:37 Result Notes None recorded. Problems Name Problem SNOMED Code Status Onset Date Resolution Date Notes Provider Name and Address Organization Details Recorded Time Enthesopathy of hip region 78131488 Active Johnny henning MD [address] , [address], [place], [address], [place] [facility] 6 11:36:10 Lumbosacral spondylosis without myelopathy 04343814 Jillian henning MD [address] , [address], [place], [address], [place] [facility] 6 11:36:10 Lumbar post-laminecto my syndrome 344971874 Jillian henning MD [address] , [address], [place], [address], [place] [facility] 6 11:36:10 Lumbosacral radiculitis 15982857 Jillian henning MD [address] , [address], [place], [address], [place] [facility] 6 11:36:10 Disorder of bursa of shoulder region 30747250 Active Johnny henning MD [address] [facility] [facility] , [address], [place], [address], [place] [facility] 6 11:36:11 Muscle pain 72473697 Active Johnny henning MD [address] [facility] , [address], [place], [address], [place] [facility] 6 11:36:10 Problem Notes None recorded. Procedures Surgical History Date Name Laterality Status Provider Name and Address Organization Details Recorded Time 09/13/19 16 Radiofrequency of Lumbar/Sacral medial branches supplying the facets under fluoroscopic guidance completed Johnny Montanez MD [address] [facility] , [address], [place], [address], [place] [facility] 09/14/2015 14:17:33 09/07/19 16 Lumbar median branch block under fluroscopic guidance completed Johnny Montanez MD [address] [facility] , [address], [place], [address], [place] [facility] 09/08/2015 14:23:25 08/16/19 16 Fluoroscopic Guided Lumbar Facet Steroid Injections of levels completed Johnny Montanez MD [address] [facility] , [address], [place], [address], [place] [facility] 08/16/2015 13:09:50 03/08/20 15 Fluoroscopic Guided Lumbar Facet Steroid Injections of levels completed Johnny Montanez MD [address] [facility] , [address], [place], [address], [place] [facility] 03/09/2015 [...] Time 08/22/2015 x-ray, shoulder, 2 views completed [facility] Diagnosit Imaging Dept [address] [place] [address], [place], [address], 09/01/2015 15:28:37 Procedure Notes None recorded. Medical [...] x 40 years Not Available [facility] 05/13/2020 03:16:11 What Is Your Level Of Alcohol Consumption? Moderate Wine [id number] Information not available 05/13/2020 Are You Currently Employed? No [id number] Information not available 05/13/2020 Which Illicit Or Recreational Drugs Have You Used? No [id number] Information not available 05/13/2020 Education 12 Information no t available 03/01/2015 Live Alone Or With Others? Alone Information not available 03/01/2015 Marital Status Informatio n not available 03/01/2015 How Many Years Have You Smoked Tobacco? 20 [id number] Information not available 05/13/2020 Sex: Unknown Functional [...] SNOMED-CT Code Diagnosis ICD10 Code Diagnosis Note [id number] [facility] [address] [place] [address] 03/01/2015 10:09:29 03/02/2015 11:29:26 Lumbar post-laminectomy syndrome 819435891 Lumbosacra l radiculitis 78631592 Lumbosacra l spondylosis without myelopathy 72699955 Enthesopat hy of hip region 38867375 76003 [facility] [address] [place] [address] 03/08/2015 14:21:23 03/09/2015 09:25:14 Lumbosacral spondylosis without myelopathy 30511926 Enthesopat hy of hip region 69651527 Lumbosacra l radiculitis 36288717 Lumbar post-laminectomy syndrome 114967345 76221 [facility] [address] [place] [address] 04/11/2015 14:50:34 04/12/2015 09:13:56 Lumbosacral spondylosis without myelopathy 69065842 Enthesopat hy of hip region 62296276 Lumbosacra l radiculitis 62930035 Lumbar post-laminectomy syndrome 698212593 65477 Johnny Montanez MD [facility] [address] [place] [address] 08/16/2015 10:11:47 08/16/2015 14:46:00 Lumbosacral spondylosis without myelopathy 14767590 M47.817 Enthesopat hy of hip region 45489609 M76.9 Lumbosacra l radiculitis 54141452 M54.17 Lumbar post-laminectomy syndrome 145311223 M96.1 Disorder o f bursa of shoulder region 51929231 M25.812 48938 Johnny Montanez MD PAIN OFFICE [address] [place] [address] 09/01/2015 14:03:53 09/01/2015 15:37:11 Lumbosacral spondylosis without myelopathy 60050246 M47.817 Enthesopat hy of hip region 04439517 M76.9 Disorder o f bursa of shoulder region 64355989 M25.812 Lumbosacra l radiculitis 29678737 M54.17 Lumbar post-laminectomy syndrome 126466147 M96.1 87587 Johnny Montanez MD [facility] [address] [place] [address] 09/07/2015 09:36:32 09/08/2015 14:24:03 Lumbosacral spondylosis without myelopathy 80882456 M47.817 Enthesopat hy of hip region 46869810 M70.61 Disorder o f bursa of shoulder region 20950647 M25.812 Lumbosacra l radiculitis 63477508 M54.17 Lumbar post-laminectomy syndrome 037698652 M96.1 96851 Johnny Montanez MD [facility] [address] [place] [address] 09/13/2015 10:08:37 09/13/2015 15:13:45 Lumbosacral spondylosis without myelopathy 88814760 M47.817 Lumbar post-laminectomy syndrome 344432996 M96.1 Enthesopat hy of hip region 34718606 M70.61 Disorder o f bursa of shoulder region 80717802 M25.812 Lumbosacra l radiculitis 24381618 M54.17 32903 Johnny Montanez MD [facility] [address] [place] [address] 09/23/2015 08:47:47 09/27/2015 11:36:33 Lumbosacral spondylosis without myelopathy 71898852 M47.817 Lumbar post-laminectomy syndrome 445595766 M96.1 Lumbosacra l radiculitis 63308508 M54.17 Muscle pain 61825157 M79 .1 Enthesopat hy of hip region 34402154 M70.61 Disorder o f bursa of shoulder region 41615069 M25.812 Health Concerns Section Related Observation LastModified by Organization Detai ls LastModified Time None Recorded Concern Status LastModified by Organization Details LastModified Time None Recorded Advance Directives Directive None Recorded Payers Encounter Date Sequence Insurance Name Policy Number Policy Blanco Covered Member ID Blanco Member ID Guarantor Name 08/16/2015 1 [place] [employer] Brenda M Andras [id number] Brenda Andras 08/16/2015 2 [facility] (MEDICARE SUPPLEMENT) Brenda Andras [id number] Brenda Andras 09/01/2015 1 [place] Brenda M Andras [id number] Brenda Andras 09/01/2015 2 [facility] (MEDICARE SUPPLEMENT) Brenda Andras [id number] Brenda Andras 09/07/2015 1 [place] [employer] Brenda M Andras [id number] Brenda Andras 09/07/2015 2 [facility] (MEDICARE SUPPLEMENT) Brenda Andras [id number] Brenda Andras 09/13/2015 1 [place] Brenda M Andras [id number] Brenda Andras 09/13/2015 2 [facility] (MEDICARE SUPPLEMENT) Brenda Andras [id number] Brenda Andras 09/23/2015 1 [place] [employer] Brenda M Andras [id number] Brenda Andras 09/23/2015 2 [facility] (MEDICARE SUPPLEMENT) Brenda Andras [id number] Brenda Andras Notes Date Note Type [...] her left shoulder. Johnny Montanez MD [address] [facility] , [address], [place], [address], [facility] 08/18/2015 09:24:14 09/01/2015 text/html She is here for a follow up after a left shoulder X-ray. 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 She states she has seen a PA at [facility] and she recommended a total knee [...] an issue presently. Johnny Montanez MD [address] [facility] , [address], [place], [address], [facility] 09/02/2015 11:09:45 09/07/2015 text/html She is here for a trial of right median branch block under fluoroscopic guidance at L4, L5and S1 medial branches. Johnny Montanez MD [address] [facility] , [address], [place], [address], [facility] 09/08/2015 15:45:44 09/13/2015 text/html [...] MD [address] , [address], [place], [address], [facility] 09/14/2015 14:17:41 09/23/2015 text/html She is here for a follow up. She states she is noticing pain in her muscles in the low back and she had difficulty sleeping due to pain and muscle spasms since the radiofrequency ablation. She has been applying ice. She has seen Tamika at [facility] and has started synvisc injections for her [...] bladder or bowel incontinence. Johnny Montanez MD [address] [place] [address] , [address], [place], [address], [facility] 10/03/2015 08:52:43 OBGyn Episode No OBEpisode recorded.
--- OUTSIDE RECORDS SUMMARY | 2024-10-30 14:18 | XMS_ITS | Data Portability ---
Author Organization [place] - [facility], _[facility] Address [address] [place] [address] Assessment Encounter Date Assessment Date Assessment LastModified [...] 143 mm[Hg] 79 mm[Hg] Yun Harrell MD [address] [place] [address], [phone] [place], [place] - [facility] 8 16:35:36 Date Recorded Body temperature Heart rate Respiratory rate Systolic blood pressure Diastolic blood pressure Provider Name and Address Organization Details Last Updated DateTime 8 98.5 [degF] 80 /min 18 /min 125 mm[Hg] 59 mm[Hg] GUILHERME Cazares NP [address] [place], [address] [place] [address] [facility] 8 10:16:59 Date Recorded Body temperature Heart rate Respiratory rate Systolic blood pressure Diastolic blood pressure Provider Name and Address Organization Details Last Updated DateTime 8 99.7 [degF] 68 /min 18 /min 103 mm[Hg] 57 mm[Hg] GUILHERME Cazares NP [address] [place] [address], [address] [place] [address] [facility] 8 09:45:06 Date Recorded Body temperature Heart rate Systolic blood pressure Diastolic blood pressure Provider Name and Address Organization Details Last Updated DateTime 12/05/2017 97.8 [degF] 80 /min 147 mm[Hg] 78 mm[Hg] GUILHERME HALL NP [address] [place] [address], [phone] [facility] 12/05/2017 10:18:56 Date Recorded Body weight Body temperature Heart rate Oxygen saturation Oxygen saturation in Arterial blood by Pulse oximetry Systolic blood pressure Diastolic blood pressure Provider Name and Address Organization Details Last Updated DateTime 8 [address]204.5 2 g 97.8 [degF] 72 /min 96 % 96 % 99 mm[Hg] 41 mm[Hg] GUILHERME Cazares NP [address] [place] [address], [address] [place] [address] [facility] 8 09:38:58 Social History Question Answer Notes LastModified by Organizat ion Details LastModified Time Tobacco Smoking Status Former Smoker Yun Harrell MD [address] [place] [address], [phone], [facility] 12/01/2017 16:36:41 What Is [...] SNOMED-CT Code Diagnosis ICD10 Code Diagnosis Note [id number] Yun Harrell MD [facility] [address] [place] [address] 12/01/2017 16:22:36 12/06/2017 14:56:06 Spinal stenosis of lumbar region 43016755 M48.061 s/p decompress ion, pain is controlled on tylenol, dilaudid, fentanyl patch, PT, OT, wound care Essential hypertension 72710645 I10 cont amlodipin, losartan Hyperlipidemia 41966353 E78.5 cont lipitor Gastroesop hageal reflux disease without esophagitis 579552230 K21.9 cont PPI Constipation 63241035 K5 9.00 colace, senna, miralax ,enema if needed Depressive disorder 3548 9007 F32.9 cont zoloft, trazodone [id number] GUILHERME HALL NP [place] [address] [place] [address] 12/02/2017 10:05:52 12/04/2017 11:11:45 Spinal stenosis of lumbar region 20806986 M48.061 s/p decompress ion, pain is controlled on tylenol, dilaudid, fentanyl patch, cont with PT and OT here; incision is covered with steri stips and DPD Essential hypertension 63510028 I10 cont amlodipin, losartango od BP control Hyperlipidemia 02448095 E78.5 cont lipitor Gastroesop hageal reflux disease without esophagitis 698610460 K21.9 cont PPI Constipation 65531814 K5 9.00 good BM; cont current med regiment Depressive disorder 3548 9007 F32.9 cont zoloft, trazodone [id number] GUILHERME HALL NP [facility] [address] [place] [address] 12/04/2017 09:44:05 12/06/2017 14:28:20 Spinal stenosis of lumbar region 09342146 M48.061 s/p decompress ion, pain is controlled on tylenol, dilaudid, fentanyl patch, cont with PT and OT here; incision is covered with steri stips. Essential hypertension 53980062 I10 cont amlodipin, losartango od BP control Hyperlipidemia 10606798 E78.5 cont lipitor Gastroesop hageal reflux disease without esophagitis 059593285 K21.9 cont PPI Constipation 19979867 K5 9.00 good BM; cont current med regiment Depressive disorder 8958 9007 F32.9 cont zoloft, trazodone Leukocytosis 674522035 D 72.829 wbc 12; pt has a fever; will get UA [id number] GUILHERME HALL NP [facility] House [address] [place] [address] 12/05/2017 10:17:51 12/10/2017 16:37:53 Spinal stenosis of lumbar region 56421574 M48.061 s/p decompress ion, pain is controlled on tylenol, dilaudid, fentanyl patch, cont with PT and OT here; incision is covered with steri stips.pt jose be d/c home in a few days Leukocytosis 760574064 D 72.829 UA neg, afebrile; cbc pending from today Essential hypertension 12774093 I10 cont amlodipine , losartango od BP control Constipation 29098024 K5 9.00 good BM; cont current med regiment [id number] GUILHERME HALL NP [facility] [address] [place] [address] 12/06/2017 09:34:53 12/13/2017 12:45:01 Spinal stenosis of lumbar region 10966703 M48.061 s/p decompress ion, pain is controlled on tylenol, dilaudid, fentanyl patch,will give rx for fentalyn pathc #4 to go home withMass pat checkedf/u wit [place] in 8 weeks Essential hypertension 22667436 I10 cont amlodipin, losartan Hyperlipidemia 38315801 E78.5 cont lipitor Gastroesop hageal reflux disease without esophagitis 892247361 K21.9 cont PPI Constipation 31028597 K5 9.00 colace, senna, miralax ,enema if needed Depressive disorder 2060 9007 F32.9 cont zoloft, trazodone Health Concerns Section Related Observation LastModified by Organization Detai ls LastModified Time None Recorded Concern Status LastModified by Organization Details LastModified Time None Recorded Advance Directives Directive None Recorded Payers Encounter Date Sequence Insurance Name Policy Number Policy Blanco Covered Member ID Blanco Member ID Guarantor Name 12/01/2017 1 [place] [employer] Brenda M Andras [id number] Brenda Andras 12/02/2017 1 [place] [employer] Brenda M Andras [id number] Brenda Andras 12/04/2017 1 [place] [facility] Brenda M Andras [id number] Brenda Andras 12/04/2017 2 [facility] - MEDICARE ENHANCE (INDEMNITY PLAN) Brenda Andras [id number] Brenda Andras 12/05/2017 1 [place] [employer] Brenda M Andras [id number] Brenda Andras 12/05/2017 2 [facility] - MEDICARE ENHANCE (INDEMNITY PLAN) Brenda Andras [id number] Brenda Andras 12/06/2017 1 [place] [facility] Brenda M Andras [id number] Brenda Andras 12/06/2017 2 [facility] - MEDICARE ENHANCE (INDEMNITY PLAN) Brenda Andras [id number] Brenda Andras Notes Date Note Type Note Provider Name and Address Organization Details Recorded Time 12/01/2017 text/html seen for admission- came from [facility] where pt had L3-S1 decompression.Pt tolerated procedure well, pain is controlled on current fentanyl patch and dilaudidPt came to for further care Yun Harrell MD [address] [place], [address], [facility] 12/01/2017 16:43:01 12/02/2017 text/html seeing pt today for f/u; continues to work with therapy here, making progress. Pt came from [facility] where pt had L3-S1 decompression.Pt tolerated procedure well, pain is controlled on current fentanyl patch and dilaudid. GUILHERME HALL NP [address] [place], [address], [facility] 12/02/2017 10:21:10 12/04/2017 text/html seeing pt today for f/u; continues to work with therapy here, making progress. Pt came from [facility] where pt had L3-S1 decompression.Pt tolerated procedure well, pain is controlled on current fentanyl patch and dilaudid. GUILHERME HALL NP [address] [place], [address], [facility] 12/04/2017 12:59:51 12/05/2017 text/html seeing pt today for f/u; continues to work with therapy here, making progress.Ua was obtained yesterday; pt had elevated wbc Pt came from [facility] where pt had L3-S1 decompression.Pt tolerated procedure well, pain is controlled on current fentanyl patch and dilaudid. GUILHERME HALL NP [address] [place], [address], [facility] - [facility] 12/07/2017 15:19:06 12/06/2017 text/html seeing pt today for d/c; pt has done well with therapy here, made progress, will be d/c home tomorrow. GUILHERME HALL NP [address] [place], [address], [facility] - [facility] 12/08/2017 11:15:02 OBGyn Episode No OBEpisode recorded.
--- OUTSIDE RECORDS SUMMARY | 2024-10-30 14:18 | XMS_ITS | Continuity of Care Document ---
Author Organization [facility] Address [address] [place] [address], [address] [place] [address]- Care Team Providers Care Project Mgr Name Role Phone Kane JUNG, Ling Parada Primary Care Physician Unavailable Encounter [facility] Date(s): 09/24/24 - 10/24/24 [facility] Olaf [facility]Dial[facility] [address] [facility], [address] [place] [address]- Encounter Type: Triage Allergies, Adverse Reactions, Alerts No Known Allergies Medications acetaminophen-oxycodone 300 mg-5 mg oral tablet 1 tablet, By Mouth, Every 6 hours, 0 Refills, Maintenance, 08/30/22 2:00:00 PM EST, Partial fill uponpatient request if the prescription is for a schedule II opioid drug. Start Date: 08/30/22 Status: Ordered Repeat number: 1 Calcium Carbonate = 600 mg, By Mouth, Daily, 0 Refills, Maintenance, 04/05/16 3:52:39 PM EDT Start Date: 04/05/16 Status: Ordered Repeat number: 1 Colace sodium 100 mg oral capsule 200 mg, 2, capsule, By Mouth, Daily, PRN, # 20 capsule, Refills 0, Maintenance, for constipation, 04/05/16 3:53:16 PM EDT Start Date: 04/05/16 Status: Ordered Quantity: 20.0 Unit: capsule Repeat number: 1 Flonase 50 mcg/inh nasal spray 2 sprays, Nares, Both, Daily in AM, 0 Refills, Maintenance, 04/05/16 3:53:47 PM EDT, [place] Start Date: 04/05/16 Status: Ordered Repeat number: 1 ipratropium nasal 42 mcg/inh spray 2 sprays, Nares, Both, 2 times a day, # 15 mL, 0 Refills, Maintenance, 04/05/16 3:54:06 PM EDT, [place] Start Date: 04/05/16 Status: Ordered Quantity: 15.0 Unit: mL Repeat number: 1 Lipitor 10 mg oral tablet 1 tablet = 10 mg, By Mouth, Daily, # 30 tablet, 0 Refills, Maintenance Start Date: 04/05/16 Status: Ordered Quantity: 30.0 Unit: tablet Repeat number: 1 losartan 100 mg oral tablet 1 tablet = 100 mg, By Mouth, Daily, # 30 tablet, 0 Refills, Maintenance, 04/05/16 3:55:04 PM EDT, Tablet Start Date: 04/05/16 Status: Ordered Quantity: 30.0 Unit: tablet Repeat number: 1 Norvasc Tablet 10 mg, By Mouth, Daily, Refills 0, Tot. Refills 0, 05/08/07 1:34:37 AM EDT Start Date: 05/08/07 Status: Ordered Repeat number: 1 ProAir HFA 90 mcg/inh inhalation aerosol with adapter 2, puffs, Inhalation, Every 6 hours, PRN, # 8.5 Gm, Refills 0, Maintenance, 04/05/16 3:53:07 PM EDT, Aerosol Start Date: 04/05/16 Status: Ordered Quantity: 8.5 Unit: g Repeat number: 1 Protonix 40 mg oral delayed release tablet 40 mg, 1, tablet, By Mouth, Daily, # 30 tablet, Refills 0, Maintenance, 04/05/16 3:53:28 PM EDT Start Date: 04/05/16 Status: Ordered Quantity: 30.0 Unit: tablet Repeat number: 1 Trazodone Tablet 100 mg, By Mouth, Daily at bedtime, Refills 0, Tot. Refills 0, 05/08/07 1:35:28 AM EDT Start Date: 05/08/07 Status: Ordered Repeat number: 1 Tylenol Caplet Extra Strength = 1,000 mg, By Mouth, Every 6 hours, PRN as needed for pain, 0 Refills, Maintenance, 04/05/16 3:54:34PM EDT Start Date: 04/05/16 Status: Ordered Repeat number: 1 vibegron 75 mg oral tablet 1 tablet = 75 mg, By Mouth, Daily, # 30 tablet, 11 Refills, Maintenance, 10/08/24 8:29:00 AM EDT, Tablet, [id number], Partial fill upon patient request if the prescription is for a schedule II opioid drug., 149.86, cm, 11/27/22 10:53:00 EDT, Height, 79.9, kg, 11/27/22 10:53:00 EDT, Dry Weight Start Date: 10/08/24 Status: Ordered Quantity: 30.0 Unit: tablet Repeat number: 12 Vitamin D3 = 2,000 International_Units, By Mouth, Daily, 0 Refills, Maintenance, 04/05/16 3:59:14 PM EDT Start Date: 04/05/16 Status: Ordered Repeat number: 1 Walker See Instructions, # 1 each, Maintenance, Use daily to aid with back pain, 04/05/16 6:14:08 PM EDT, Compound Start Date: 04/05/16 Status: Ordered Quantity: 1.0 Unit: each Repeat number: 1 Zoloft 50 mg oral tablet 50 mg, 1, tablet, By Mouth, Daily, 0 Refills Start Date: 05/08/07 Status: Ordered Repeat number: 1 Problem List Condition Confirmation Course Effective Dates [...] 30 days ago entered on: 08/30/22 Sex Sex Representation Female (finding) Patient Care team information Care Team Personnel Name: Momo Galvin RN Position: [facility]K RN Member Role: Primary Care Nurse Care Team Related Persons Name: JD ABRAHAM Insurance Providers Guarantor name: KAY COLLINS [employer] Plan Information #: 1 Payer: MEDICARE PART B OUTPT Member Number: NA Policy Number: NA Group Number: NA Health Plan Information #: 2 Payer: DALIA NUÑEZ Member Number: NA Policy Number: NA Group Number: NA
--- OUTSIDE RECORDS SUMMARY | 2024-10-30 14:18 | XMS_ITS | Patient Health Record ---
Author Organization [facility] Address [address] [place] [address] Care Team Providers Care Lens Grinder Rough Name Role Phone Ling Middleton DNP Primary [...] a day for 30 day(s) Active Ipratropium [place] 0.06 % 2 sprays in e ach nostril Nasally Three times a day for 4 day(s) Active Amoxicillin 500 MG 1 capsule Orally NEEDED FOR DENTIST Active Calcium 500 MG 1 tablet Orally Once a day Active Tramadol & Dietary Manage Prod Active Vitamin D3 Ultra Potency 29501 UNIT 1 tablet Orally as directed Active [...] Problem Status W/U Status Risk Notes Problem 91928962 Rectal bleeding (K62.5) Active confirmed Problem 411189641 Gastro-esophagea l reflux disease without esophagitis (K21.9) Active confirmed Problem 14987364 Cough (R05) Active confirmed Problem 207226019 Urinary incontinence, unspecified type (R32) Active confirmed Plan Of Treatment Pending Test Test Name Order Date XR GI SERIES 07/14/2015 Insurance Providers Payer Name Payer Address Payer Phone Subscriber Number Group Number Insured Name Patient Relationship to Insured Coverage Start Date Coverage End Date MEDICARE OF [place] [address] [place] [address] [id number] KAY COLLINS Self - patient is the insured [employer] [address] [place] [id number] KAY COLLINS Self - patient is the insured Medical (General) History Medical History History ICD Code EGD/colonoscopy 01/03/2006. No evidence of Morse's esophagus. Hyperplastic colon polyp. Seasonal allergic rhinitis hypertension hypercholesterolemia scoliosis arthritis depression Surgical History Surgery Date(Month/Year) Vocal cord polyp 2006 Multiple back and neck surgeries rotator cuff surgery both knee replacement left
== END 2024-10-30 13:51 | disposition home or self-care (01) ==
PROVIDERS: PCP Physician Assistant; Visit Provider Nurse Practitioner Family
DX: S90.425A Blister (nonthermal), left lesser toe(s), initial encounter (principal); L08.9 Local infection of the skin and subcutaneous tissue, unspecified

== ENCOUNTER 2024-11-04 10:57 | Outpatient (AMB) | payer MEDICARE, OTHER, SELFPAY ==
--- NOTE | 2024-11-04 11:26 | AM.OFFVISNUR ---
Intake Visit Reasons: Evenity #4 Allergies bee pollen Allergy (Unknown, Verified 10/30/24 12:52) Unknown house dust mite Allergy (Unknown, Verified 10/30/24 12:52) Unknown adhesive tape Adverse Reaction (Intermediate, Verified 10/30/24 12:52) Rash Office Meds romosozumab-aqqg 210 mg/2.34 mL(105 mg/1.17 mL x2)subcutaneous syringe Performing Provider: Rommel Lopez MD Performing Location: [facility] Endocrinology Administered by: Aydee White RN on 11/04/24 11:10 Dose Route Admin Location Dispensed Lot Number Expiration Date [employer] 210 mg subcut bilateral upper arms 2.34 mL [id number] 10/26/26 74907-437-67 [facility] Comments: Consent form signed by pt. Pt tolerated injection well. No adverse reactions reported from previous injection. No questions or concerns at this time. Assessment & Plan Assessment & Plan Orders: Orders AMB Romosozumab Injection Patient Supplied Today M81.0 - Age-related osteoporosis without current pathological fracture Medications: New romosozumab-aqqg 210 mg (2.34 mL) subcut ONCE 2.34 mL 0RF M81.0 - Age-related osteoporosis without current pathological fracture Coding
--- OUTSIDE RECORDS SUMMARY | 2024-11-04 12:54 | XMS_ITS ---
Author Organization [facility] [employer] [facility] Address [address] [place] [id number] Care Team Providers Care Lifeline Representatives Name Role Phone SHANDRA MIDDLTEON Primary Care Provider ALLERGIES Allergen (clinical drug [...] a day for 90 days Active Nystatin 498372 UNIT/GM apply a light dusting to the [...] unspecified type (I48.91) Active confirmed Atrial fibrillation (98849489) VITAL SIGNS Blood pressure systolic 122 mm Hg 01/22/20 24 Blood pressure diastolic 68 mm Hg 024 Heart Rate 55 /min 01/22/2024 Height 59 in 01/22/2024 Weight 174.6 lbs 01/22/2024 BMI 35.26 kg/m2 01/22/2024 Oximetry 95 % 01/22/2024 Height-cm 149.86 cm 01/22/2024 Weight-kg 79.2 kg 01/22/2024 Encounters Encounter Location Date Provider Diagnosis [address] [id number] 01/22/2024 SHANDRA MIDDLETON Moderate persistent asthma, uncomplicated [...] by hospital team. She was referred to [place] [facility], we encouraged her to make this appointment. Continue with current care plan until this time. She continues to diurese fluid, we will continue to monitor breathing. Provided extensive education to patient and her daughter regarding signs and symptoms that require emergency care 01/22/2024 Other This visit was performed by [facility] student Sumi Jacome RN under the supervision of Shandra Middleton DNP, ART, NEUROLOGY PHYSICIAN-C, MAURY. PLAN OF TREATMENT Treatment Notes [...] by hospital team. She was referred to [place] [facility], we encouraged her to make this appointment. Continue with current care plan until this time. She continues to diurese fluid, we will continue to monitor breathing. Provided extensive education to patient and her daughter regarding signs and symptoms that require emergency care Other This visit was perfo rmed by [facility] student Sumi Jacome RN under the supervision of Shandra Middleton DNP, ART, NEUROLOGY PHYSICIAN-C, MAURY. Progress Notes * JACKIE COLLINSOB:[birth year] (89 yo F)Acc No.[id number]:01/22/2024 Progress Notes Patient:??DENNISMEKAKAY Provider:??Shandra Middleton DNP :1935?Age:88 Y?Sex:Fe male Date:01/22/2024 Phone: Address:[address] [place] [address], [place] [address] , [place], [id number] Subjective: * Chief Complaints: * ?1. F/u [...] at the ED, she was feeling extremely vif4lhukd and SOB for 2.5 days. At ED [...] Bruise easily, PND - Sinus Infections. * [place] History:?Last pap smear date??Recent MIRROR INSPECTOR visit 2021 for overactive bladder w/full exam, [...] drink alcohol?: Yes, Socially (). ?Lives in [place], [place] in elderly complex, alone. * Medications:??Taking [...] MOUTH EVERY DAY NEEDED , Taking Nystatin 608086 UNIT/GM Powder apply a light dusting to [...] by hospital team. She was referred to [place] [facility], we encouraged her to make this appointment. Continue with current care plan until this time. She continues to diurese fluid, we will continue to monitor breathing. Provided extensive education to patient and her daughter regarding signs and symptoms that require emergency care? 4.??Others?? Notes: This visit was performed by NEUROLOGY PHYSICIAN student Sumi Jacome RN under the supervision of Shandra Middleton DNP, EXECUTIVE COMPENSATION ANALYST, NEUROLOGY PHYSICIAN-C, VWCN. ? * Preventive Medicine:?Last CPE: 04/11/2022 DEXA: Colonoscopy: Yes, no longer gets them Endoscopy: No Covid Vac: Yes Flu Vac: Yes PV: Yes Shingles Vac: Yes. * Billing Information: * Visit Code:?? 17235 Office Visit, Est Pt., Level 3. * [...]
--- OUTSIDE RECORDS SUMMARY | 2024-11-04 12:55 | XMS_ITS | Data Portability ---
Author Organization [facility] Pain Managem michael, PAIN OFFICE Address [address] [facility] [address] [place] [address] Care Team Providers Care Space And Missile Operations Name Role Phone SHALA DELGADO Referring Provider ANGEL LUIS RALPH Primary Care Provider Assessment Encounter Date [...] booked for the same. She needs a driver license examiner on the day of the procedure. If [...] [id number], [address] [place], [address], 6 11:36:11 Celebrex 200 mg capsule 2015 016 [id number], [address] [place], [address], 6 08:56:14 Patient TargetsNo targets recorded. Patient Instructions Encounter Date Encounter Id Patient Instructions Last Modified By Organization Details Last Modified Time 08/16/2015 [id number] She was advised against bed rest lasting longer than four days and to continue activities as tolerated. [email or web address] Not available 08/16/2015 13:04:51 09/01/2015 [id number] She was advised against bed rest lasting longer than four days and to continue activities as tolerated. [email or web address] Not available 09/01/2015 15:28:37 09/07/2015 [id number] She was advised against bed rest lasting longer than four days and to continue activities as tolerated. [email or web address] Not available 09/08/2015 14:18:24 09/13/2015 [id number] She was advised against bed rest lasting longer than four days and to continue activities as tolerated. [email or web address] Not available 09/13/2015 14:59:45 09/23/2015 [id number] She was advised against bed rest lasting longer than four days and to continue activities as tolerated. [email or web address] Not available 09/27/2015 10:03:45 Reason for Referral None Reported. Results Created Date Observation Date Name Description Value Unit Range Abnormal Flag Note LastModifiedBy Organization Detail LastModifiedTime 08/22/19 16 08/22/2015 x-ray , tony mclaughlin, 2 views No observ ation record ed. [facility] Diagn[facility] Imaging Dept [address] [place] [address], [address], 09/01/2015 15:28:37 Result Notes None recorded. Problems Name Problem SNOMED Code Status Onset Date Resolution Date Notes Provider Name and Address Organization Details Recorded Time Enthesopathy of hip region 01271464 Active Johnny henning MD [address] , [address], [place], [address], [place] [facility] 6 11:36:10 Lumbosacral spondylosis without myelopathy 93287726 Jillian henning MD [address] , [address], [place], [address], [place] [facility] 6 11:36:10 Lumbar post-laminecto my syndrome 134495123 Jillian henning MD [address] , [address], [place], [address], [place] [facility] 6 11:36:10 Lumbosacral radiculitis 70845829 Jillian henning MD [address] , [address], [place], [address], [place] [facility] 6 11:36:10 Disorder of bursa of shoulder region 00366681 Active Johnny henning MD [address] [facility] [address], [place], [address], [place] [facility] 6 11:36:11 Muscle pain 66416189 Active Johnny henning MD [address] [facility] , [address], [place], [address], [place] [facility] 6 11:36:10 Problem Notes None recorded. Procedures Surgical History Date Name Laterality Status Provider Name and Address Organization Details Recorded Time 09/13/19 16 Radiofrequency of Lumbar/Sacral medial branches supplying the facets under fluoroscopic guidance completed Johnny Montanez MD [address] [facility] , [address], [place], [address], [place] [facility] 09/14/2015 14:17:33 09/07/19 16 Lumbar median branch block under fluroscopic guidance completed Johnny Montanez MD [address] [facility] , [address], [place], [address], [place] [facility] 09/08/2015 14:23:25 08/16/19 16 Fluoroscopic Guided Lumbar Facet Steroid Injections of levels completed Johnny Montanez MD [address] [facility] , [address], [place], [address], [place] [facility] 08/16/2015 13:09:50 03/08/20 15 Fluoroscopic Guided Lumbar Facet Steroid Injections of levels completed Johnny Montanez MD [address] [facility] , [address], [place], [address], [place] [facility] 03/09/2015 09:22:44 Other completed Angel Luis Mendieta [place] - [facility] 03/01/2015 10:58:13 Carpal tunnel release completed Angel Luis Mendieta [place] [facility] 03/01/2015 10:58:13 Lumbar Fusion completed Angel Luis Mendieta [place] [facility] 03/01/2015 10:58:13 Arthroscopic Surgery completed Angel Luis Mendieta [place] - [facility] 03/01/2015 10:58:13 Other completed Angel Luis Mendieta [place] - [facility] 03/01/2015 10:58:13 Knee Surgery completed Angel Luis Mendieta BRINDA - [facility] 03/01/2015 10:58:13 Other completed Angel Luis Mendieta [place] - [facility] 03/01/2015 10:58:13 Appendectomy completed Angel Luis Mendieta [place] - [facility] 03/01/2015 15:26:13 Imaging Results Imaging Date Name Status LastModified by Organiz ation Details LastModified Time 08/22/2015 x-ray, shoulder, 2 views completed [facility] Diagnosit Imaging Dept [address] [place] [address], [place], [address], 09/01/2015 15:28:37 Procedure Notes None recorded. Medical [...] % 97 % 182 mm[Hg] 72 mm[Hg] Angel Luis Diaz [facility] 6 10:23:34 Date Recorded Oxygen saturation Oxygen saturation in Arterial blood by Pulse oximetry Heart rate Systolic blood pressure Diastolic blood pressure Provider Name and Address Organization Details Last Updated DateTime 6 97 % 97 % 76 /min 118 mm[Hg] 58 mm[Hg] Angel Luis [facility] 6 15:00:38 Date Recorded Oxygen saturation Oxygen saturation in Arterial blood by Pulse oximetry Heart rate Systolic blood pressure Diastolic blood pressure Provider Name and Address Organization Details Last Updated DateTime 6 99 % 99 % 65 /min 140 mm[Hg] 88 mm[Hg] Angel Luis Mendieta [place] [facility] 6 09:43:17 Date Recorded Oxygen saturation Oxygen saturation in Arterial blood by Pulse oximetry Heart rate Systolic blood pressure Diastolic blood pressure Provider Name and Address Organization Details Last Updated DateTime 6 98 % 98 % 67 /min 157 mm[Hg] 45 mm[Hg] Angel Luis Mendieta [place] [facility] 6 10:18:19 Date Recorded Oxygen saturation Oxygen saturation in Arterial blood by Pulse oximetry Heart rate Systolic blood pressure Diastolic blood pressure Provider Name and Address Organization Details Last Updated DateTime 6 97 % 97 % 69 /min 143 mm[Hg] 76 mm[Hg] Angel Luis Mendieta [place] [facility] 6 08:56:14 Social History Question Answer Notes LastModified by Organizat ion Details LastModified Time Tobacco Smoking Status Former Smoker Quit x 40 years Not Available [facility] 05/13/2020 03:16:11 What Is Your Level Of Alcohol Consumption? Moderate Wine [id number] Information not available 05/13/2020 Are You Currently Employed? No [id number] Information not available 05/13/2020 Which Illicit Or Recreational Drugs Have You Used? No [id number] Information not available 05/13/2020 Education 12 Information no t available 03/01/2015 Live Alone Or With Others? Alone Information not available 03/01/2015 Marital Status Informatio n not available 03/01/2015 How Many Years Have You Smoked Tobacco? 20 [id number] Information not available 05/13/2020 Sex: Unknown Functional [...] SNOMED-CT Code Diagnosis ICD10 Code Diagnosis Note 85735 [facility] [address] [place] [address] 03/01/2015 10:09:29 03/02/2015 11:29:26 Lumbar post-laminectomy syndrome 190865819 Lumbosacra l radiculitis 66326980 Lumbosacra l spondylosis without myelopathy 91808252 Enthesopat hy of hip region 54089104 97782 [facility] [address] [place] [address] 03/08/2015 14:21:23 03/09/2015 09:25:14 Lumbosacral spondylosis without myelopathy 14137572 Enthesopat hy of hip region 00038254 Lumbosacra l radiculitis 84111991 Lumbar post-laminectomy syndrome 039544165 62323 [facility] [address] [place] [address] 04/11/2015 14:50:34 04/12/2015 09:13:56 Lumbosacral spondylosis without myelopathy 31219228 Enthesopat hy of hip region 77985619 Lumbosacra l radiculitis 88399723 Lumbar post-laminectomy syndrome 391816981 84702 Johnny Montanez MD [facility] [address] [place] [address] 08/16/2015 10:11:47 08/16/2015 14:46:00 Lumbosacral spondylosis without myelopathy 39977154 M47.817 Enthesopat hy of hip region 89515692 M76.9 Lumbosacra l radiculitis 22350711 M54.17 Lumbar post-laminectomy syndrome 675412597 M96.1 Disorder o f bursa of shoulder region 29761665 M25.812 69058 Johnny Montanez MD PAIN OFFICE [address] [place] [address] 09/01/2015 14:03:53 09/01/2015 15:37:11 Lumbosacral spondylosis without myelopathy 74340383 M47.817 Enthesopat hy of hip region 61712698 M76.9 Disorder o f bursa of shoulder region 05587918 M25.812 Lumbosacra l radiculitis 20981847 M54.17 Lumbar post-laminectomy syndrome 652496942 M96.1 40539 Johnny Montanez MD [facility] [address] [place] [address] 09/07/2015 09:36:32 09/08/2015 14:24:03 Lumbosacral spondylosis without myelopathy 77148080 M47.817 Enthesopat hy of hip region 96733988 M70.61 Disorder o f bursa of shoulder region 65511949 M25.812 Lumbosacra l radiculitis 83736416 M54.17 Lumbar post-laminectomy syndrome 539049500 M96.1 02103 Johnny Montanez MD [facility] [address] [place] [address] 09/13/2015 10:08:37 09/13/2015 15:13:45 Lumbosacral spondylosis without myelopathy 42157358 M47.817 Lumbar post-laminectomy syndrome 423517585 M96.1 Enthesopat hy of hip region 41618649 M70.61 Disorder o f bursa of shoulder region 40998402 M25.812 Lumbosacra l radiculitis 08220709 M54.17 76412 Johnny Montanez MD [facility] PA[facility] [address] [place] [address] 09/23/2015 08:47:47 09/27/2015 11:36:33 Lumbosacral spondylosis without myelopathy 24310265 M47.817 Lumbar post-laminectomy syndrome 768986735 M96.1 Lumbosacra l radiculitis 24160180 M54.17 Muscle pain 08745366 M79 .1 Enthesopat hy of hip region 10535401 M70.61 Disorder o f bursa of shoulder region 98938698 M25.812 Health Concerns Section Related Observation LastModified by Organization Detai ls LastModified Time None Recorded Concern Status LastModified by Organization Details LastModified Time None Recorded Advance Directives Directive None Recorded Payers Encounter Date Sequence Insurance Name Policy Number Policy Blanco Covered Member ID Blanco Member ID Guarantor Name 08/16/2015 1 MEDICARE [place]: [employer] Brenda M Andras [id number] Brenda Andras 08/16/2015 2 [facility] (MEDICARE SUPPLEMENT) Brenda Andras [id number] Brenda Andras 09/01/2015 1 MEDICARE B-[place]: [employer] Brenda M Andras [id number] Brenda Andras 09/01/2015 2 [facility] (MEDICARE SUPPLEMENT) Brenda Andras [id number] Brenda Andras 09/07/2015 1 MEDICARE B-[place]: [employer] Brenda M Andras [id number] Brenda Andras 09/07/2015 2 [facility] (MEDICARE SUPPLEMENT) Brenda Andras [id number] Brenda Andras 09/13/2015 1 [place] [employer] Brenda M Andras [id number] Brenda Andras 09/13/2015 2 [facility] (MEDICARE SUPPLEMENT) Brenda Andras [id number] Brenda Andras 09/23/2015 1 MEDICARE B-[place]: [employer] Brenda M Andras [id number] Brenda Andras 09/23/2015 2 [facility] (MEDICARE SUPPLEMENT) Brenda Andras [id number] Brenda Andras Notes Date Note Type [...] her left shoulder. Johnny Montanez MD [address] [facility] , [address], [place], [address], [facility] - Pain Management 08/18/2015 09:24:14 09/01/2015 text/html She is here for a follow up after a left shoulder X-ray. 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 She states she has seen a PA at [facility] and she recommended a total knee replacement. [...] an issue presently. Johnny Montanez MD [address] [facility] , [address], [place], [address], [facility] - Pain Management 09/02/2015 11:09:45 09/07/2015 text/html She is here for a trial of right median branch block under fluoroscopic guidance at L4, L5and S1 medial branches. Johnny Montanez MD [address] [facility] , [address], [place], [address], [facility] - Pain Management 09/08/2015 15:45:44 09/13/2015 text/html [...] MD [address] , [address], [place], [address], [facility] - Pain Management 09/14/2015 14:17:41 09/23/2015 text/html She is here for a follow up. She states she is noticing pain in her muscles in the low back and she had difficulty sleeping due to pain and muscle spasms since the radiofrequency ablation. She has been applying ice. She has seen Tamika at [facility] and has started synvisc injections for [...] bladder or bowel incontinence. Johnny Montanez MD [address] [place] [address] , [address], [place], [address], [facility] 10/03/2015 08:52:43 OBGyn Episode No OBEpisode recorded.
--- OUTSIDE RECORDS SUMMARY | 2024-11-04 12:55 | XMS_ITS | Patient Health Record ---
Author Organization [facility] Address [address] [place] [id number] Care Team Providers Care Strategic Communications Manager Name Role Phone SHANDRA MIDDLETON Primary Care Provider Shelby Johnson Unavailable [phone] ALLERGIES Allergen (clinical drug ingredient) Drug/Non Drug [...] a day for 90 days Active Nystatin 691134 UNIT/GM apply a light dusting to the [...] (primary) hypertension (I10) Active confirmed Essential hypertension (39213552) Problem Moderate persistent asthma, uncomplicated (J45.40) Active confirmed Uncomplicated moderate persistent asthma (179958658) Problem Osteoarthritis of hip, unspecified (M16.9) Active confirmed Osteoarthritis of hip (115878627) Problem Sacroiliitis, not elsewhere classified (M46.1) Active confirmed Solitary sacroiliitis (433437965) Problem Overactive bladder (N32.81) Active confirmed Overactive bladder (764307380) Problem 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) Active confirmed Postmenopa usal atrophic vaginitis (68267450) Problem Atrial fibrillation, unspecified type (I48.91) Active confirmed Atrial fibrillation (11592253) VITAL SIGNS Heart Rate 55 /min 01/22/2024 Temperature 98.4 degrees Fahrenheit 12/11/2023 Height-cm 149.86 cm 01/22/2024 Oximetry 95 % 01/22/2024 Blood pressure diastolic 68 mm Hg 01/22/2024 Weight-kg 79.2 kg 01/22/2024 Height 59 in 01/22/2024 Blood pressure systolic 122 mm Hg 01/22/2024 Weight 174.6 lbs 01/22/2024 BMI 35.26 kg/m2 01/22/2024 Encounters Encounter Location Date Provider Diagnosis [facility], [address], [place] [id number] 01/01/2024 SHANDRA MIDDLETON [address] [id number] 01/22/2024 SHANDRA MIDDLETON Moderate persistent asthma, uncomplicated J45.40 ; Overactive bladder N32.81 and Atrial fibrillation, unspecified type I48.[address] [id number] 12/03/2023 Shelby Johnson Skin rash R21 [address] [id number] 12/11/2023 Shelby Johnson Shortness of breath R06.02 ; Wheezing R06.2 ; Acute cough R05.1 and Pneumonia of right lung due to infectious organism, unspecified part of lung J18.[address] [id number] 12/24/2023 SHANDRA MIDDLETON Sacroiliitis, not elsewhere classified M46.1 ; Depression, unspecified F32.A ; Moderate persistent asthma, uncomplicated J45.40 and Essential (primary) hypertension I10 [address] [id number] 11/29/2023 SHANDRA MIDDLETON Sacroiliitis, not elsewhere classified M46.[address] [id number] 12/12/[address] [id number] 01/22/2024 SHANDRA MIDDLETON Sacroiliitis, not elsewhere classified [...] and coordination of care. Gil Irizarry BSN, GRIEVANCE AND APPEALS SPECIALIST student saw the patient and formulated the [...] by hospital team. She was referred to [facility], we encouraged her to make this [...] 01/22/2024 Other This visit was performed by LIGHT CLEANER student Sumi Jacome RN under the supervision of Shandra Middleton DNP, CRITICAL CARE CLINICAL NURSE SPECIALIST, LIGHT CLEANER-C, VWKB. 12/03/2023 Other Total time spen t [...] Medicare [address] [place] [address] [id number] KAY COLLINS Self - patient is the insured [facility] [address] BRINDA THAKKAR [id number] [id number] KAY COLLINS Self - patient is the [...]
--- OUTSIDE RECORDS SUMMARY | 2024-11-04 12:55 | XMS_ITS ---
Author Organization [facility] Address [address] [place] [id number] Care Team Providers Care Rear Admiral Name Role Phone SHANDRA MIDDLETON Primary Care Provider REASON FOR VISIT f/u meds, pain Encounters Encounter Location Date Provider Diagnosis [address] [id number] 01/01/2024 SHANDRA MIDDLETON PLAN OF TREATMENT No Information Progress Notes * JACKIE COLLINSOB:[birth year] (89 yo F)Acc No.[id number]:01/01/2024 Progress Notes Patient:??KAY COLLINS Provider:??Shandra Middleton DNP :1935?Age:88 Y?Sex:Fe male Date:01/01/2024 Phone: Address:[address] [place] [address], [address] , [place], [place] Subjective: * Chief Complaints: * ?1. F/u meds, pain. * Medical History:?? Objective: Assessment: Plan: * Treatment: * Billing Information: * Visit Code:?? * Procedure Codes:?? * Sign off status: Pending * Provider:??Shandra Middleton DNP Date:??0 01/01/2024
--- OUTSIDE RECORDS SUMMARY | 2024-11-04 12:56 | XMS_ITS ---
Author Organization [facility] Address [address] [place] [phone] Care Team Providers Care Microsoft Infrastructure Consultant Name Role Phone SHANDRA MCDONALD Primary Care [...] Encounters Encounter Location Date Provider Diagnosis [address] [id number] 01/22/2024 SHANDRA MCDONALD Sacroiliitis, not elsewhere classified [...] * JACKIE COLLINSOB:[birth year] (88 yo F)Acc No.[id number]:01/22/2024 Patient:??KAY COLLINS :1935?Age:88 Y?Sex:Fe male Phone: Address:[address] , [address] , [place] [address] * Refills?? Refill oxyCODONE HCl Tablet, 5 [...]
--- OUTSIDE RECORDS SUMMARY | 2024-11-04 12:56 | XMS_ITS | Patient Health Record ---
Author Organization [facility] Address [address] [place] [address] Care Team Providers Care Call Specialist Name Role Phone Ling Middleton DNP [...] a day for 30 day(s) Active Ipratropium Brokaw 0.06 % 2 sprays in e ach nostril Nasally Three times a day for 4 day(s) Active Amoxicillin 500 MG 1 capsule Orally NEEDED FOR DENTIST Active Calcium 500 MG 1 tablet Orally Once a day Active Tramadol & Dietary Manage Prod Active Vitamin D3 Ultra Potency 16015 UNIT 1 tablet Orally as directed Active [...] Problem Status W/U Status Risk Notes Problem 94139899 Rectal bleeding (K62.5) Active confirmed Problem 922313648 Gastro-esophagea l reflux disease without esophagitis (K21.9) Active confirmed Problem 67420353 Cough (R05) Active confirmed Problem 651959535 Urinary incontinence, unspecified type (R32) Active confirmed Plan Of Treatment Pending Test Test Name Order Date XR GI SERIES 07/14/2015 Insurance Providers Payer Name Payer Address Payer Phone Subscriber Number Group Number Insured Name Patient Relationship to Insured Coverage Start Date Coverage End Date MEDICARE [place] [address] [place] [address] [id number] KAY COLLINS Self - patient is the insured [employer] [address] [place] THAKKAR [phone] [id number] KAY COLLINS Self - patient is the insured Medical (General) History Medical History History ICD Code EGD/colonoscopy 01/03/2006. No evidence of Morse's esophagus. Hyperplastic colon polyp. Seasonal allergic rhinitis hypertension hypercholesterolemia scoliosis arthritis depression Surgical History Surgery Date(Month/Year) Vocal cord polyp 2006 Multiple back and neck surgeries rotator cuff surgery both knee replacement left
--- OUTSIDE RECORDS SUMMARY | 2024-11-04 12:56 | XMS_ITS | Data Portability ---
Author Organization [place] - [facility], _[facility] Address [address] [place] [id number] Assessment Encounter Date Assessment Date Assessment LastModified [...] 143 mm[Hg] 79 mm[Hg] Yun Harrell MD [address] [place] [address], [phone] [place], [place] - [facility] 8 16:35:36 Date Recorded Body temperature Heart rate Respiratory rate Systolic blood pressure Diastolic blood pressure Provider Name and Address Organization Details Last Updated DateTime 8 98.5 [degF] 80 /min 18 /min 125 mm[Hg] 59 mm[Hg] GUILHERME Cazares NP [address] [place], [address] [place] [address] [facility] 8 10:16:59 Date Recorded Body temperature Heart rate Respiratory rate Systolic blood pressure Diastolic blood pressure Provider Name and Address Organization Details Last Updated DateTime 8 99.7 [degF] 68 /min 18 /min 103 mm[Hg] 57 mm[Hg] GUILHERME Cazares NP [address] [place] [address], [phone] [place] [address] [facility] 8 09:45:06 Date Recorded Body temperature Heart rate Systolic blood pressure Diastolic blood pressure Provider Name and Address Organization Details Last Updated DateTime 12/05/2017 97.8 [degF] 80 /min 147 mm[Hg] 78 mm[Hg] GUILHERME HALL NP [address] [place] [address], [phone] [facility] 12/05/2017 10:18:56 Date Recorded Body weight Body temperature Heart rate Oxygen saturation Oxygen saturation in Arterial blood by Pulse oximetry Systolic blood pressure Diastolic blood pressure Provider Name and Address Organization Details Last Updated DateTime 8 [address]263.5 2 g 97.8 [degF] 72 /min 96 % 96 % 99 mm[Hg] 41 mm[Hg] GUILHERME Cazares NP [address] [place] [address], [address] [place] [address] [facility] 8 09:38:58 Social History Question Answer Notes LastModified by Organizat ion Details LastModified Time Tobacco Smoking Status Former Smoker Yun Harrell MD [address] [place] [address], [phone], [facility] 12/01/2017 16:36:41 What Is [...] SNOMED-CT Code Diagnosis ICD10 Code Diagnosis Note [id number] Yun Harrell MD [facility] [address] [place] [address] 12/01/2017 16:22:36 12/06/2017 14:56:06 Spinal stenosis of lumbar region 06236058 M48.061 s/p decompress ion, pain is controlled on tylenol, dilaudid, fentanyl patch, PT, OT, wound care Essential hypertension 21067344 I10 cont amlodipin, losartan Hyperlipidemia 96214656 E78.5 cont lipitor Gastroesop hageal reflux disease without esophagitis 534983017 K21.9 cont PPI Constipation 88859162 K5 9.00 colace, senna, miralax ,enema if needed Depressive disorder 3548 9007 F32.9 cont zoloft, trazodone [id number] GUILHERME HALL NP [place] [address] [place] [address] 12/02/2017 10:05:52 12/04/2017 11:11:45 Spinal stenosis of lumbar region 52729125 M48.061 s/p decompress ion, pain is controlled on tylenol, dilaudid, fentanyl patch, cont with PT and OT here; incision is covered with steri stips and DPD Essential hypertension 72128529 I10 cont amlodipin, losartango od BP control Hyperlipidemia 03217609 E78.5 cont lipitor Gastroesop hageal reflux disease without esophagitis 592617492 K21.9 cont PPI Constipation 77440666 K5 9.00 good BM; cont current med regiment Depressive disorder 3548 9007 F32.9 cont zoloft, trazodone [id number] GUILHERME HALL NP [facility] [address] [place] [address] 12/04/2017 09:44:05 12/06/2017 14:28:20 Spinal stenosis of lumbar region 01862509 M48.061 s/p decompress ion, pain is controlled on tylenol, dilaudid, fentanyl patch, cont with PT and OT here; incision is covered with steri stips. Essential hypertension 22984354 I10 cont amlodipin, losartango od BP control Hyperlipidemia 78191413 E78.5 cont lipitor Gastroesop hageal reflux disease without esophagitis 872801558 K21.9 cont PPI Constipation 64859909 K5 9.00 good BM; cont current med regiment Depressive disorder 1251 9007 F32.9 cont zoloft, trazodone Leukocytosis 083790605 D 72.829 wbc 12; pt has a fever; will get UA [id number] GUILHERME HALL NP [facility] ill House [address] [place] [address] 12/05/2017 10:17:51 12/10/2017 16:37:53 Spinal stenosis of lumbar region 55358628 M48.061 s/p decompress ion, pain is controlled on tylenol, dilaudid, fentanyl patch, cont with PT and OT here; incision is covered with steri stips.pt jose be d/c home in a few days Leukocytosis 974605548 D 72.829 UA neg, afebrile; cbc pending from today Essential hypertension 90576512 I10 cont amlodipine , losartango od BP control Constipation 45336419 K5 9.00 good BM; cont current med regiment [id number] GUILHERME HALL NP [facility] [address] [place] [address] 12/06/2017 09:34:53 12/13/2017 12:45:01 Spinal stenosis of lumbar region 60477123 M48.061 s/p decompress ion, pain is controlled on tylenol, dilaudid, fentanyl patch,will give rx for fentalyn pathc #4 to go home withMass pat checkedf/u wit [place] in 8 weeks Essential hypertension 28179579 I10 cont amlodipin, losartan Hyperlipidemia 61356778 E78.5 cont lipitor Gastroesop hageal reflux disease without esophagitis 282660740 K21.9 cont PPI Constipation 89493343 K5 9.00 colace, senna, miralax ,enema if needed Depressive disorder 7668 9007 F32.9 cont zoloft, trazodone Health Concerns Section Related Observation LastModified by Organization Detai ls LastModified Time None Recorded Concern Status LastModified by Organization Details LastModified Time None Recorded Advance Directives Directive None Recorded Payers Encounter Date Sequence Insurance Name Policy Number Policy Blanco Covered Member ID Blanco Member ID Guarantor Name 12/01/2017 1 [place] [employer] Brenda M Andras [id number] Brenda Andras 12/02/2017 1 [place] [employer] Brenda M Andras [id number] Brenda Andras 12/04/2017 1 [place] [facility] Brenda M Andras [id number] Brenda Andras 12/04/2017 2 [facility] - MEDICARE ENHANCE (INDEMNITY PLAN) Brenda Andras [id number] Brenda Andras 12/05/2017 1 [place] [employer] Brenda M Andras [id number] Brenda Andras 12/05/2017 2 [facility] - MEDICARE ENHANCE (INDEMNITY PLAN) Brenda Andras [id number] Brenda Andras 12/06/2017 1 [place] [facility] Brenda M Andras [id number] Brenda Andras 12/06/2017 2 [facility] - MEDICARE ENHANCE (INDEMNITY PLAN) Brenda Andras [id number] Brenda Andras Notes Date Note Type Note Provider Name and Address Organization Details Recorded Time 12/01/2017 text/html seen for admission- came from [facility] where pt had L3-S1 decompression.Pt tolerated procedure well, pain is controlled on current fentanyl patch and dilaudidPt came to for further care Yun Harrell MD [address] [place], [address], [facility] 12/01/2017 16:43:01 12/02/2017 text/html seeing pt today for f/u; continues to work with therapy here, making progress. Pt came from [facility] where pt had L3-S1 decompression.Pt tolerated procedure well, pain is controlled on current fentanyl patch and dilaudid. GUILHERME HALL NP [address] [place], [address], [facility] 12/02/2017 10:21:10 12/04/2017 text/html seeing pt today for f/u; continues to work with therapy here, making progress. Pt came from [facility] where pt had L3-S1 decompression.Pt tolerated procedure well, pain is controlled on current fentanyl patch and dilaudid. GUILHERME HALL NP [address] [place], [address], [facility] 12/04/2017 12:59:51 12/05/2017 text/html seeing pt today for f/u; continues to work with therapy here, making progress.Ua was obtained yesterday; pt had elevated wbc Pt came from [facility] where pt had L3-S1 decompression.Pt tolerated procedure well, pain is controlled on current fentanyl patch and dilaudid. GUILHERME HALL NP [address] [place], [address], [facility] - [facility] 12/07/2017 15:19:06 12/06/2017 text/html seeing pt today for d/c; pt has done well with therapy here, made progress, will be d/c home tomorrow. GUILHERME HALL NP [address] [place], [address], [facility] - [facility] 12/08/2017 11:15:02 OBGyn Episode No OBEpisode recorded.
== END 2024-11-04 11:25 | disposition home or self-care (01) ==
LOC: HO.ENCR 10:58
PROVIDERS: PCP Physician Assistant; Visit Provider Internal Medicine Endocrinology, Diabetes & Metabolism
DX: M81.0 Age-related osteoporosis without current pathological fracture (principal)

== ENCOUNTER → 2024-11-04 10:57 | Outpatient (BNVA) | payer MEDICARE, OTHER, SELFPAY | PROVIDERS: PCP Physician Assistant; Visit Provider Internal Medicine Endocrinology, Diabetes & Metabolism | DX: M81.0 Age-related osteoporosis without current pathological fracture (principal) | CPT/HCPCS: 96372; J3111 ==

== ENCOUNTER 2024-11-04 12:45 | Outpatient (REF) | payer SELFPAY ==
--- NOTE | 2024-11-04 13:31 | MHC.AU.HA3 ---
Hearing Instrument Follow-Up- Binaural Date of Visit: 11/04/24 Right Ear: Make, Model, Color, Serial Number: [id number] Adult Family Home Program Manager Repair Warranty: 08/30/2015 Adult [employer] Home [employer] Manager Loss and Damage Warranty: 08/30/2015 [facility] Service Plan: Battery Size: 312 Branch Associate/Slim Tube: 1 Earmold/Dome/CShell/SlimTip: 10mm power Type of Wax Guard: Dispensed By: [facility] Date of Fittin08/11/2013 Left Ear: Make, Model, Color, Serial Number: [id number] Adult Family Home Program Manager Repair Warranty: 08/30/2015 Adult Family Home Program Manager Loss and Damage Warranty: 08/30/2015 [facility] Service Plan: Battery Size: 312 Branch Associate/Slim Tube: 1 Earmold/Dome/CShell/SlimTip: 10 mm power Type of Wax Guard: Dispensed By: [facility] Date of Fittin08/11/2013 Follow-Up Summary: Here for maintenance, tubes have become discolored. Cleaned aids, replaced slim tubes and tails, replaced domes. Listening check positive. Recommendations: Recommendations: Hearing instrument follow-up or maintenance as needed. Diagnosis Code(s): Primary Diagnosis: H90.3 Bilateral Sensorineural Hearing Loss Signature: Provider: Fer Brown, [facility]
== END 2024-11-04 12:46 | disposition home or self-care (01) ==
LOC: HO.HAP 12:45
PROVIDERS: Visit Provider Physician Assistant
DX: Z46.1 Encounter for fitting and adjustment of hearing aid (principal); H90.3 Sensorineural hearing loss, bilateral
CPT/HCPCS: 92593

== ENCOUNTER 2024-12-02 10:54 | Outpatient (AMB) | payer MEDICARE, OTHER, SELFPAY ==
--- NOTE | 2024-12-02 11:13 | AM.OFFVISNUR ---
Intake Visit Reasons: Evenity #5 Allergies bee pollen Allergy (Unknown, Verified 10/30/24 12:52) Unknown house dust mite Allergy (Unknown, Verified 10/30/24 12:52) Unknown adhesive tape Adverse Reaction (Intermediate, Verified 10/30/24 12:52) Rash Office Meds romosozumab-aqqg 210 mg/2.34 mL(105 mg/1.17 mL x2)subcutaneous syringe Performing Provider: Rommel Lopez MD Performing Location: [facility] Endocrinology Administered by: Aydee White RN on 12/02/24 11:13 Dose Route Admin Location Dispensed Lot Number Expiration Date NDC Cutting Torch Operator 210 mg subcut bilateral upper arms 2.34 mL [id number] 11/25/26 55092-641-24 [facility] Assessment & Plan Assessment & Plan Orders: Orders AMB Romosozumab Injection Patient Supplied Today M81.0 - Age-related osteoporosis without current pathological fracture Medications: New romosozumab-aqqg 210 mg (2.34 mL) subcut ONCE 2.34 mL 0RF M81.0 - Age-related osteoporosis without current pathological fracture Coding
--- OUTSIDE RECORDS SUMMARY | 2024-12-02 12:17 | XMS_ITS ---
Author Organization [facility], [facility] Address [address] [place] [phone] Care Team Providers Care Instrument Room Technician Name Role Phone SHANDRA MIDDLETON Primary Care Provider REASON FOR VISIT f/u meds, pain Encounters Encounter Location Date Provider Diagnosis [address] [id number] 01/01/2024 SHANDRA MIDDLETON PLAN OF TREATMENT No Information Progress Notes * JACKIE COLLINSOB:[birth year] (89 yo F)Acc No.[id number]:01/01/2024 Progress Notes Patient:??KAY COLLINS Provider:??Shandra Middleton DNP :1935?Age:88 Y?Sex:Fe male Date:01/01/2024 Phone: Address:[address] [place] [address], [address] , [place], [phone] Subjective: * Chief Complaints: * ?1. F/u meds, pain. * Medical History:?? Objective: Assessment: Plan: * Treatment: * Billing Information: * Visit Code:?? * Procedure Codes:?? * Sign off status: Pending * Provider:??Shandra Middleton DNP Date:??0 01/01/2024
--- OUTSIDE RECORDS SUMMARY | 2024-12-02 12:17 | XMS_ITS ---
Author Organization [facility] [employer] [facility] Address [address] [place] [phone] Care Team Providers Care Optometry Professor Name Role Phone LING MIDDLETON Primary Care Provider ALLERGIES Allergen (clinical [...] a day for 90 days Active Nystatin 016708 UNIT/GM apply a light dusting to the [...] Atrial fibrillation, unspecified type (I48.91) Active confirmed VITAL SIGNS Blood pressure systolic 122 mm Hg 01/22/20 24 Blood pressure diastolic 68 mm Hg 024 Heart Rate 55 /min 01/22/2024 Height 59 in 01/22/2024 Weight 174.6 lbs 01/22/2024 BMI 35.26 kg/m2 01/22/2024 Oximetry 95 % 01/22/2024 Height-cm 149.86 cm 01/22/2024 Weight-kg 79.2 kg 01/22/2024 Encounters Encounter Location Date Provider Diagnosis [address] [id number] 01/22/2024 LING MIDDLETON Moderate persistent asthma, uncomplicated [...] by hospital team. She was referred to [place] [facility], we encouraged her to make this appointment. Continue with current care plan until this time. She continues to diurese fluid, we will continue to monitor breathing. Provided extensive education to patient and her daughter regarding signs and symptoms that require emergency care 01/22/2024 Other This visit was performed by [facility] student Sumi Jacome RN under the supervision of Ling Middleton DNP, ART, ANTONIO-C, MAURY. PLAN OF TREATMENT Treatment Notes Assessment [...] by hospital team. She was referred to [place] [facility], we encouraged her to make this appointment. Continue with current care plan until this time. She continues to diurese fluid, we will continue to monitor breathing. Provided extensive education to patient and her daughter regarding signs and symptoms that require emergency care Other This visit was perfo rmed by [facility] [employer] [facility] student Sumi Jacome RN under the supervision of Ling Middleton DNP, ART, RONANC, MAURY. Progress Notes * JACKIE COLLINSOB:[birth year] (89 yo F)Acc No.[id number]:01/22/2024 Progress Notes Patient:??SHANIQUAMEKA AVILESRAINE Provider:??Ling Middleton DNP :1935?Age:88 Y?Sex:Fe male Date:01/22/2024 Phone: Address:[address] [place] [address], [place] [address] , [place], [phone] Subjective: * Chief Complaints: * ?1. F/u meds. * HPI: ?Patient Care Team:? Providers/Specialists:. ?Visit info:? Brenda presents in the office today for a [...] at the ED, she was feeling extremely [id number] and SOB for 2.5 days. At ED [...] Bruise easily, PND - Sinus Infections. * Room Service Manager History:?Last pap smear date??Recent INTERNAL SALES ENGINEER visit 2021 for overactive bladder w/full [...] drink alcohol?: Yes, Socially (). ?Lives in [place], [place] in elderly complex, alone. * Medications:??Taking [...] MOUTH EVERY DAY NEEDED , Taking Nystatin 277587 UNIT/GM Powder apply a light dusting to [...] by hospital team. She was referred to [place] [facility], we encouraged her to make this appointment. Continue with current care plan until this time. She continues to diurese fluid, we will continue to monitor breathing. Provided extensive education to patient and her daughter regarding signs and symptoms that require emergency care? 4.??Others?? Notes: This visit was performed by [employer] student Sumi Jacome RN under the supervision of Ling Middleton DNP, DIVIDER OPERATOR, COMMERCIAL AGENT-C, VWKB. ? * Preventive Medicine:?Last CPE: 04/11/2022 DEXA: Colonoscopy: Yes, no longer gets them Endoscopy: No Covid Vac: Yes Flu Vac: Yes PV: Yes Shingles Vac: Yes. * Billing Information: * Visit Code:?? 45750 Office Visit, Est Pt., Level 3. * Procedure Codes:?? * Sign off status: Pending * Provider:??Ling Middleton DNP Date:??0 01/22/2024 History and Physical Notes * HPI (History of Present Illness) Category Sub-Category Detail Notes Category Not es Patient Care Team Providers/ Specialists: Visit rob Brenda marcus lamont in the office today for [...]
--- OUTSIDE RECORDS SUMMARY | 2024-12-02 12:18 | XMS_ITS | Data Portability ---
Author Organization [facility] Pain Managem michael, [facility] Address [address] [facility] [address] [place] [address] Care Team Providers Care Keying Machine Operator Name Role Phone SHALA DELGADO Referring Provider [phone] ANISHA RALPH Primary Care Provider Assessment Encounter [...] booked for the same. 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 Patient Instructions Encounter Date Encounter Id Patient Instructions Last Modified By Organization Details Last Modified Time 08/16/2015 [id number] She was advised against bed rest lasting longer than four days and to continue activities as tolerated. [email or web address] Not available 08/16/2015 13:04:51 09/01/2015 [id number] She was advised against bed rest lasting longer than four days and to continue activities as tolerated. tmanikantan Not available 09/01/2015 15:28:37 09/07/2015 [id number] She was advised against bed rest lasting longer than four days and to continue activities as tolerated. tmanikantan Not available 09/08/2015 14:18:24 09/13/2015 [id number] She was advised against bed rest lasting longer than four days and to continue activities as tolerated. tmanikantan Not available 09/13/2015 14:59:45 09/23/2015 [id number] She was advised against bed rest lasting longer than four days and to continue activities as tolerated. tmanikantan Not available 09/27/2015 10:03:45 Reason for Referral None Reported. Results Created Date Observation Date Name Description Value Unit Range Abnormal Flag Note LastModifiedBy Organization Detail LastModifiedTime 08/22/19 16 08/22/2015 x-ray , tony mclaughlin, 2 views No observ ation record ed. [facility] Dept [address] [place] [address], [address], 09/01/2015 15:28:37 Result Notes None recorded. Problems Name Problem SNOMED Code Status Onset Date Resolution Date Notes Provider Name and Address Organization Details Recorded Time Enthesopathy of hip region 40868535 Active Johnny henning MD [email or web address] , [address], [place], [address], [place] [facility] 6 11:36:10 Lumbosacral spondylosis without myelopathy 64378177 Jillian henning MD [email or web address] , [address], [place], [address], [place] [facility] 6 11:36:10 Lumbar post-laminecto my syndrome 062198407 Jillian henning MD [email or web address] , [address], [place], [address], [place] [facility] 6 11:36:10 Lumbosacral radiculitis 04563863 Jillian henning MD [address] , [address], [place], [address], [place] [facility] 6 11:36:10 Disorder of bursa of shoulder region 37721301 Active Johnny henning MD [address] [facility] , [address], [place], [address], [place] [facility] 6 11:36:11 Muscle pain 03660985 Active Johnny henning MD [address] [facility] , [address], [place], [address], [place] [facility] 6 11:36:10 Problem Notes None recorded. Procedures Surgical History Date Name Laterality Status Provider Name and Address Organization Details Recorded Time 09/13/19 16 Radiofrequency of Lumbar/Sacral medial branches supplying the facets under fluoroscopic guidance completed Johnny Montanez MD [address] [facility] , [address], [place], [address], [place] [facility] 09/14/2015 14:17:33 09/07/19 16 Lumbar median branch block under fluroscopic guidance completed Johnny Montanez MD [address] [facility] , [address], [place], [address], [place] [facility] 09/08/2015 14:23:25 08/16/19 16 Fluoroscopic Guided Lumbar Facet Steroid Injections of levels completed Johnny Montanez MD [address] [facility] , [address], [place], [address], [place] [facility] 08/16/2015 13:09:50 03/08/20 15 Fluoroscopic Guided Lumbar Facet Steroid Injections of levels completed Johnny Montanez MD [address] [facility] , [address], [place], [address], [place] [facility] 03/09/2015 [...] 08/22/2015 x-ray, shoulder, 2 views completed [facility] [address] [place] [address], [place], [address], 09/01/2015 15:28:37 Procedure Notes None recorded. Medical [...] Smoker Quit x 40 years Not Available [facility] 05/13/2020 03:16:11 What Is Your Level Of Alcohol Consumption? Moderate Wine [id number] Information not available 05/13/2020 Are You Currently Employed? No [id number] Information not available 05/13/2020 Which Illicit Or Recreational Drugs Have You Used? No [id number] Information not available 05/13/2020 Education 12 Information no t available 03/01/2015 Live Alone Or With Others? Alone Information not available 03/01/2015 Marital Status Informatio n not available 03/01/2015 How Many Years Have You Smoked Tobacco? 20 [id number] Information not available 05/13/2020 Sex: Unknown Functional [...] SNOMED-CT Code Diagnosis ICD10 Code Diagnosis Note [id number] Johnny Montanez MD PAIN OFFICE [address] [place] [address] 03/01/2015 10:09:29 03/02/2015 11:29:26 Lumbar post-laminectomy syndrome 810364076 Lumbosacra l radiculitis 92552669 Lumbosacra l spondylosis without myelopathy 89505384 Enthesopat hy of hip region 01193712 34432 Johnny Montanez MD PAIN OFFICE [address] [place] [address] 03/08/2015 14:21:23 03/09/2015 09:25:14 Lumbosacral spondylosis without myelopathy 69442846 Enthesopat hy of hip region 42324432 Lumbosacra l radiculitis 98947440 Lumbar post-laminectomy syndrome 325334804 91220 Johnny Montanez MD PAIN OFFICE [address] [place] [address] 04/11/2015 14:50:34 04/12/2015 09:13:56 Lumbosacral spondylosis without myelopathy 89843437 Enthesopat hy of hip region 38059664 Lumbosacra l radiculitis 88675265 Lumbar post-laminectomy syndrome 050994023 78109 Johnny Montanez MD PAIN OFFICE [address] [place] [address] 08/16/2015 10:11:47 08/16/2015 14:46:00 Lumbosacral spondylosis without myelopathy 34077110 M47.817 Enthesopat hy of hip region 30183490 M76.9 Lumbosacra l radiculitis 27148193 M54.17 Lumbar post-laminectomy syndrome 087122597 M96.1 Disorder o f bursa of shoulder region 34983890 M25.812 76334 Johnny Montanez MD [facility] PA[facility] [address] [place] [address] 09/01/2015 14:03:53 09/01/2015 15:37:11 Lumbosacral spondylosis without myelopathy 59517304 M47.817 Enthesopat hy of hip region 99112759 M76.9 Disorder o f bursa of shoulder region 33916144 M25.812 Lumbosacra l radiculitis 92141914 M54.17 Lumbar post-laminectomy syndrome 073393583 M96.1 60911 Johnny Montanez MD [facility] PA[facility] [address] [place] [address] 09/07/2015 09:36:32 09/08/2015 14:24:03 Lumbosacral spondylosis without myelopathy 08461255 M47.817 Enthesopat hy of hip region 56215887 M70.61 Disorder o f bursa of shoulder region 23447145 M25.812 Lumbosacra l radiculitis 15310200 M54.17 Lumbar post-laminectomy syndrome 648292382 M96.1 40570 Johnny Montanez MD [facility] PA[facility] [address] [place] [address] 09/13/2015 10:08:37 09/13/2015 15:13:45 Lumbosacral spondylosis without myelopathy 83942130 M47.817 Lumbar post-laminectomy syndrome 090554231 M96.1 Enthesopat hy of hip region 41351165 M70.61 Disorder o f bursa of shoulder region 87017035 M25.812 Lumbosacra l radiculitis 72176058 M54.17 18830 Johnny Montanez MD [facility] [address] [place] [address] 09/23/2015 08:47:47 09/27/2015 11:36:33 Lumbosacral spondylosis without myelopathy 89443074 M47.817 Lumbar post-laminectomy syndrome 947544860 M96.1 Lumbosacra l radiculitis 35526380 M54.17 Muscle pain 07227421 M79 .1 Enthesopat hy of hip region 91759209 M70.61 Disorder o f bursa of shoulder region 38928295 M25.812 Health Concerns Section Related Observation LastModified by Organization Detai ls LastModified Time None Recorded Concern Status LastModified by Organization Details LastModified Time None Recorded Advance Directives Directive None Recorded Payers Encounter Date Sequence Insurance Name Policy Number Policy Blanco Covered Member ID Blanco Member ID Guarantor Name 08/16/2015 1 [place] [employer] Brenda M Andras [id number] Brenda Andras 08/16/2015 2 [facility] (MEDICARE SUPPLEMENT) Brenda Andras [id number] Brenda Andras 09/01/2015 1 [place] [employer] Brenda M Andras [id number] Brenda Andras 09/01/2015 2 [facility] (MEDICARE SUPPLEMENT) Brenda Andras [id number] Brenda Andras 09/07/2015 1 [place] Brenda M Andras [id number] Brenda Andras 09/07/2015 2 [facility] (MEDICARE SUPPLEMENT) Brenda Andras [id number] Brenda Andras 09/13/2015 1 [place] [employer] Brenda M Andras [id number] Brenda Andras 09/13/2015 2 [facility] (MEDICARE SUPPLEMENT) Brenda Andras [id number] Brenda Andras 09/23/2015 1 MEDICARE [facility]: NATIONAL GOVERNMENT SERVICES Brenda M Andras [id number] Brenda Andras 09/23/2015 2 [facility] (MEDICARE SUPPLEMENT) Brenda Andras [id number] Brenda Andras Notes Date Note Type [...] her left shoulder. Johnny Montanez MD [address] [facility] , [address], [place], [address], [facility] Pain Management 08/18/2015 09:24:14 09/01/2015 text/html She is here for a follow up after a left shoulder X-ray. 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 She states she has seen a PA at [facility] and she recommended a total knee [...] an issue presently. Johnny Montanez MD [address] [facility] , [address], [place], [address], [facility] Pain Management 09/02/2015 11:09:45 09/07/2015 text/html She is here for a trial of right median branch block under fluoroscopic guidance at L4, L5and S1 medial branches. Johnny Montanez MD [address] [facility] , [address], [place], [address], [facility] Pain Management 09/08/2015 15:45:44 09/13/2015 text/html [...] with the RF. Johnny Montanez MD [address] [facility] , [address], [place], [address], [facility] Pain Management 09/14/2015 14:17:41 09/23/2015 text/html She is here for a follow up. She states she is noticing pain in her muscles in the low back and she had difficulty sleeping due to pain and muscle spasms since the radiofrequency ablation. She has been applying ice. She has seen Tamika at [facility] and has started synvisc injections [...] bladder or bowel incontinence. Johnny Montanez MD [address] [place] [address] , [address], [place], [address], [place] [facility] 10/03/2015 08:52:43 OBGyn Episode No OBEpisode recorded.
--- OUTSIDE RECORDS SUMMARY | 2024-12-02 12:18 | XMS_ITS | Patient Health Record ---
Author Organization [facility] Address [address] [place] [address] Care Team Providers Care Electric Shaver Mechanic Name Role Phone Ling Middleton DNP Primary [...] a day for 30 day(s) Active Ipratropium [place] 0.06 % 2 sprays in e ach nostril Nasally Three times a day for 4 day(s) Active Amoxicillin 500 MG 1 capsule Orally NEEDED FOR DENTIST Active Calcium 500 MG 1 tablet Orally Once a day Active Tramadol & Dietary Manage Prod Active Vitamin D3 Ultra Potency 16306 UNIT 1 tablet Orally as directed Active [...] Problem Status W/U Status Risk Notes Problem 00816130 Rectal bleeding (K62.5) Active confirmed Problem 002479703 Gastro-esophagea l reflux disease without esophagitis (K21.9) Active confirmed Problem 71376536 Cough (R05) Active confirmed Problem 768218132 Urinary incontinence, unspecified type (R32) Active confirmed Plan Of Treatment Pending Test Test Name Order Date XR GI SERIES 07/14/2015 Insurance Providers Payer Name Payer Address Payer Phone Subscriber Number Group Number Insured Name Patient Relationship to Insured Coverage Start Date Coverage End Date MEDICARE OF [place] [address] [place] [address] [id number] KAY COLLINS Self - patient is the insured [employer] [address] [place] [id number] KAY COLLINS Self - patient is the insured Medical (General) History Medical History History ICD Code EGD/colonoscopy 01/03/2006. No evidence of Morse's esophagus. Hyperplastic colon polyp. Seasonal allergic rhinitis hypertension hypercholesterolemia scoliosis arthritis depression Surgical History Surgery Date(Month/Year) Vocal cord polyp 2006 Multiple back and neck surgeries rotator cuff surgery both knee replacement left
--- OUTSIDE RECORDS SUMMARY | 2024-12-02 12:18 | XMS_ITS | Patient Health Record ---
Author Organization [facility] Address [address] [place] [id number] Care Team Providers Care Hip Hop Dance Instructor Name Role Phone SHANDRA MIDDLETON Primary Care Provider Shelby Johnson Unavailable [phone] ALLERGIES Allergen (clinical drug ingredient) Drug/Non Drug [...] a day for 90 days Active Nystatin 786580 UNIT/GM apply a light dusting to the [...] (primary) hypertension (I10) Active confirmed Essential hypertension (50690457) Problem Moderate persistent asthma, uncomplicated (J45.40) Active confirmed Uncomplicated moderate persistent asthma (955311035) Problem Osteoarthritis of hip, unspecified (M16.9) Active confirmed Osteoarthritis of hip (239136466) Problem Sacroiliitis, not elsewhere classified (M46.1) Active confirmed Solitary sacroiliitis (246005105) Problem Overactive bladder (N32.81) Active confirmed Overactive bladder (486871278) Problem 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) Active confirmed Postmenopa usal atrophic vaginitis (10373276) Problem Atrial fibrillation, unspecified type (I48.91) Active confirmed Atrial fibrillation (36748311) VITAL SIGNS Heart Rate 55 /min 01/22/2024 Temperature 98.4 degrees Fahrenheit 12/11/2023 Height-cm 149.86 cm 01/22/2024 Oximetry 95 % 01/22/2024 Blood pressure diastolic 68 mm Hg 01/22/2024 Weight-kg 79.2 kg 01/22/2024 Height 59 in 01/22/2024 Blood pressure systolic 122 mm Hg 01/22/2024 Weight 174.6 lbs 01/22/2024 BMI 35.26 kg/m2 01/22/2024 Encounters Encounter Location Date Provider Diagnosis [facility], [address], [place] [id number] 01/01/2024 SHANDRA MIDDLETON [address] [id number] 01/22/2024 SHANDRA MIDDLETON Moderate persistent asthma, uncomplicated J45.40 ; Overactive bladder N32.81 and Atrial fibrillation, unspecified type I48.91 [facility] [address] [place], [place] [id number] 12/03/2023 Shelby Alex Skin rash R21 [address] [id number] 12/11/2023 Shelby Johnson Shortness of breath R06.02 ; Wheezing R06.2 ; Acute cough R05.1 and Pneumonia of right lung due to infectious organism, unspecified part of lung J18.[address] [id number] 12/24/2023 SHANDRA MIDDLETON Sacroiliitis, not elsewhere classified M46.1 ; Depression, unspecified F32.A ; Moderate persistent asthma, uncomplicated J45.40 and Essential (primary) hypertension I10 [address] [id number] 12/12/2023 SHANDRA MIDDLETON [address] [id number] 01/22/2024 SHANDRA MIDDLETON Sacroiliitis, not elsewhere classified [...] not elsewhere classified (ICD-10 - M46.1) 12/24/2023 Sacroiliitis, not elsewhere classified (ICD-10 - M46.1) Patient has exceptional back pain. She currently doing physical therapy exercises, group classes, and taking oxycodone to relieve her back pain with positive effect. We will make no medication changes today. Total time spent with patient 20 minutes which includes face to face visit, education and coordination of care. Gil Irizarry BSN, CURER FOAM RUBBER student saw the patient and formulated the note under direct supervision of Dr. Shandra Middleton DNP. 12/24/2023 Depression, unspecified (ICD-10 - F32.A) Patient is tolerating her antidepressant therapy well, she denies symptoms of depression or suicidal ideation. She was advised to call the office or emergent services if she were to develop worsening thoughts. 12/11/2023 Shortness of breath (ICD-10 - R06.02) Link R06.2 wheezing; R05.1 acute cough; J18.9 pneumonia Chest x-ray to r/o PNA Use Breo and rescue inhaler Continue with antibiotics for now Obtain [facility] swab- nasally to r/o bacterial vs virus Prednisone to help with inflammation Encourage cool mist humidifier- increase fluid intake Encourage cough syrup- decongestant/expe ctorant 12/11/2023 Wheezing (ICD-10 - R06.2) 12/03/2023 Skin rash (ICD-10 - R21) Encouraged to rinse mouth and face after using Breo Rash does not appear fungal- more like contact dermatitis No bumps noted Area red- no swollen- only area affected Please notify office if rash worsens, spreads, or is not improving over the next 72 hours 12/24/2023 Moderate persistent asthma, uncomplicated (ICD-10 - J45.40) Patient has difficulty walking long distances, takes breo as a daily inhaler and it has helped her respiratory status, will continue with that. 12/11/2023 Acute cough (ICD-10 - R05.1) [facility] swab- nasal- respiratory panel 01/22/2024 Atrial fibrillation, unspecified type (ICD-10 - I48.91) Suspect this new occurrence of A fib was related to pyelonephritis. Patient has been started on metoprolol and Xarelto by hospital team. She was referred to [facility], we encouraged her to make this appointment. Continue with current care plan until this time. She continues to diurese fluid, we will continue to monitor breathing. Provided extensive education to patient and her daughter regarding signs and symptoms that require emergency care 12/24/2023 Essential (primary) hypertension (ICD-10 - I10) Patient is being managed for elevated blood pressure. Her reading in office today was 118/62, an improvement from her previous readings with us. Patient is stable on her current regimen. 12/11/2023 Pneumonia of right lung due to infectious organism, unspecified part of lung (ICD-10 - J18.9) 01/22/2024 Other This visit was performed by ELECTRONIC HEAT SEAL OPERATOR student Sumi Jacome RN under the supervision of Shandra Middleton, DNP, SHAG TRUCK DRIVER, ELECTRONIC HEAT SEAL OPERATOR-C, VWKB. 12/03/2023 Other Total time spen t [...] Medicare [address] [place] [address] [id number] KAY COLLINS Self - patient is the insured [facility] [address] [place] [id number] KAY COLLINS Self - patient is the [...]
--- OUTSIDE RECORDS SUMMARY | 2024-12-02 12:18 | XMS_ITS | Data Portability ---
Author Organization [place] - [facility], _[facility] Address [address] [place] [id number] Assessment Encounter Date Assessment Date Assessment LastModified [...] mm[Hg] 79 mm[Hg] Yun Harrell MD [address] [place] [address], [phone] [place], [place] - [facility] 8 16:35:36 Date Recorded Body temperature Heart rate Respiratory rate Systolic blood pressure Diastolic blood pressure Provider Name and Address Organization Details Last Updated DateTime 8 98.5 [degF] 80 /min 18 /min 125 mm[Hg] 59 mm[Hg] GUILHERME Cazares NP [address] [place], [address] [place] [address] [facility] 8 10:16:59 Date Recorded Body temperature Heart rate Respiratory rate Systolic blood pressure Diastolic blood pressure Provider Name and Address Organization Details Last Updated DateTime 8 99.7 [degF] 68 /min 18 /min 103 mm[Hg] 57 mm[Hg] GUILHERME Cazares NP [address] [place] [address], [address] [place] [address] [facility] 8 09:45:06 Date Recorded Body temperature Heart rate Systolic blood pressure Diastolic blood pressure Provider Name and Address Organization Details Last Updated DateTime 12/05/2017 97.8 [degF] 80 /min 147 mm[Hg] 78 mm[Hg] GUILHERME HALL NP [address] [place] [address], [address] [facility] 12/05/2017 10:18:56 Date Recorded Body weight Body temperature Heart rate Oxygen saturation Oxygen saturation in Arterial blood by Pulse oximetry Systolic blood pressure Diastolic blood pressure Provider Name and Address Organization Details Last Updated DateTime 8 [address]58.5 2 g 97.8 [degF] 72 /min 96 % 96 % 99 mm[Hg] 41 mm[Hg] GUILHERME Cazares NP [address] [place] [address], [address] [place] [address] [facility] 8 09:38:58 Social History Question Answer Notes LastModified by Organizat ion Details LastModified Time Tobacco Smoking Status Former Smoker Yun Harrell MD [address] [place] [address], [phone], [facility] 12/01/2017 16:36:41 What Is [...] SNOMED-CT Code Diagnosis ICD10 Code Diagnosis Note [id number] Yun Harrell MD [facility] [address] [place] [address] 12/01/2017 16:22:36 12/06/2017 14:56:06 Spinal stenosis of lumbar region 80615815 M48.061 s/p decompress ion, pain is controlled on tylenol, dilaudid, fentanyl patch, PT, OT, wound care Essential hypertension 52695735 I10 cont amlodipin, losartan Hyperlipidemia 65984624 E78.5 cont lipitor Gastroesop hageal reflux disease without esophagitis 453059080 K21.9 cont PPI Constipation 20353245 K5 9.00 colace, senna, miralax ,enema if needed Depressive disorder 3548 9007 F32.9 cont zoloft, trazodone [id number] GUILHERME HALL NP [place] [address] [place] [address] 12/02/2017 10:05:52 12/04/2017 11:11:45 Spinal stenosis of lumbar region 44466830 M48.061 s/p decompress ion, pain is controlled on tylenol, dilaudid, fentanyl patch, cont with PT and OT here; incision is covered with steri stips and DPD Essential hypertension 24162141 I10 cont amlodipin, losartango od BP control Hyperlipidemia 70451317 E78.5 cont lipitor Gastroesop hageal reflux disease without esophagitis 971709442 K21.9 cont PPI Constipation 58175898 K5 9.00 good BM; cont current med regiment Depressive disorder 3548 9007 F32.9 cont zoloft, trazodone [id number] GUILHERME HALL NP [facility] [address] [place] [address] 12/04/2017 09:44:05 12/06/2017 14:28:20 Spinal stenosis of lumbar region 89845334 M48.061 s/p decompress ion, pain is controlled on tylenol, dilaudid, fentanyl patch, cont with PT and OT here; incision is covered with steri stips. Essential hypertension 74480852 I10 cont amlodipin, losartango od BP control Hyperlipidemia 42268385 E78.5 cont lipitor Gastroesop hageal reflux disease without esophagitis 021729089 K21.9 cont PPI Constipation 44885098 K5 9.00 good BM; cont current med regiment Depressive disorder 0237 9007 F32.9 cont zoloft, trazodone Leukocytosis 387097627 D 72.829 wbc 12; pt has a fever; will get UA [id number] GUILHERME HALL NP [facility] House [address] [place] [address] 12/05/2017 10:17:51 12/10/2017 16:37:53 Spinal stenosis of lumbar region 22110957 M48.061 s/p decompress ion, pain is controlled on tylenol, dilaudid, fentanyl patch, cont with PT and OT here; incision is covered with steri stips.pt jose be d/c home in a few days Leukocytosis 335097052 D 72.829 UA neg, afebrile; cbc pending from today Essential hypertension 78802212 I10 cont amlodipine , losartango od BP control Constipation 26933429 K5 9.00 good BM; cont current med regiment [id number] GUILHERME HALL NP [facility] [address] [place] [address] 12/06/2017 09:34:53 12/13/2017 12:45:01 Spinal stenosis of lumbar region 13601042 M48.061 s/p decompress ion, pain is controlled on tylenol, dilaudid, fentanyl patch,will give rx for fentalyn pathc #4 to go home withMass pat checkedf/u wit [place] in 8 weeks Essential hypertension 74357417 I10 cont amlodipin, losartan Hyperlipidemia 50517249 E78.5 cont lipitor Gastroesop hageal reflux disease without esophagitis 530258401 K21.9 cont PPI Constipation 29092530 K5 9.00 colace, senna, miralax ,enema if needed Depressive disorder 5568 9007 F32.9 cont zoloft, trazodone Health Concerns Section Related Observation LastModified by Organization Detai ls LastModified Time None Recorded Concern Status LastModified by Organization Details LastModified Time None Recorded Advance Directives Directive None Recorded Payers Insurance Date Sequence Insurance Name Policy Number Policy Blanco Covered Member ID Blanco Member ID Guarantor Name 12/04/2017 1 MEDICARE B-[place]: [facility] Brenda Wolf [id number] Brenda Andyani 12/04/2017 2 [facility] MEDICARE ENHANCE (INDEMNITY PLAN) Brenda Andyani [id number] Brenda Andras Notes Date Note Type Note Provider Name and Address Organization Details Recorded Time 12/01/2017 text/html seen for admission- came from [facility] where pt had L3-S1 decompression.Pt tolerated procedure well, pain is controlled on current fentanyl patch and dilaudidPt came to for further care Yun Harrell MD [address] [place], [address], [facility] - [facility] 12/01/2017 16:43:01 12/02/2017 text/html seeing pt today for f/u; continues to work with therapy here, making progress. Pt came from [facility] where pt had L3-S1 decompression.Pt tolerated procedure well, pain is controlled on current fentanyl patch and dilaudid. GUILHERME HALL NP [address] [place], [address], [facility] 12/02/2017 10:21:10 12/04/2017 text/html seeing pt today for f/u; continues to work with therapy here, making progress. Pt came from [facility] where pt had L3-S1 decompression.Pt tolerated procedure well, pain is controlled on current fentanyl patch and dilaudid. GUILHERME HALL NP [address] [place], [address], [facility] 12/04/2017 12:59:51 12/05/2017 text/html seeing pt today for f/u; continues to work with therapy here, making progress.Ua was obtained yesterday; pt had elevated wbc Pt came from [facility] where pt had L3-S1 decompression.Pt tolerated procedure well, pain is controlled on current fentanyl patch and dilaudid. GUILHERME HALL NP [address] [place], [address], [facility] 12/07/2017 15:19:06 12/06/2017 text/html seeing pt today for d/c; pt has done well with therapy here, made progress, will be d/c home tomorrow. GUILHERME HALL NP [address] [place] [address], [address], [facility] 12/08/2017 11:15:02 OBGyn Episode No OBEpisode recorded.
--- OUTSIDE RECORDS SUMMARY | 2024-12-02 12:19 | XMS_ITS ---
Author Organization [facility], [facility] Address [address], [place] [id number] Care Team Providers Care Community Artist Name Role Phone SHANDRA MCDONALD Primary Care [...] Active Encounters Encounter Location Date Provider Diagnosis [address] [id number] 01/22/2024 SHANDRA MCDONALD Sacroiliitis, not elsewhere classified [...] * JACKIE COLLINSOB:[birth year] (88 yo F)Acc No.[id number]:01/22/2024 Patient:??KAY COLLINS :1935?Age:88 Y?Sex:Fe male Phone: Address:[address] , [address] , [place] [address] * Refills?? Refill oxyCODONE HCl Tablet, 5 [...]
== END 2024-12-02 11:12 | disposition home or self-care (01) ==
LOC: HO.ENCR 10:55
PROVIDERS: PCP Physician Assistant; Visit Provider Internal Medicine Endocrinology, Diabetes & Metabolism
DX: M81.0 Age-related osteoporosis without current pathological fracture (principal)

== ENCOUNTER → 2024-12-02 10:54 | Outpatient (BNVA) | payer MEDICARE, OTHER, SELFPAY | PROVIDERS: PCP Physician Assistant; Visit Provider Internal Medicine Endocrinology, Diabetes & Metabolism | DX: M81.0 Age-related osteoporosis without current pathological fracture (principal) | CPT/HCPCS: 96372; J3111 ==

== ENCOUNTER 2024-12-18 08:11 | Outpatient (REF) | payer MEDICARE, OTHER, SELFPAY ==
--- OUTSIDE RECORDS SUMMARY | 2024-12-18 08:14 | XMS_ITS | Patient Health Record ---
Author Organization [facility] Address [address] [place] [address] Care Team Providers Care Utility Specialist Name Role Phone Ling Middleton DNP [...] a day for 30 day(s) Active Ipratropium [place] 0.06 % 2 sprays in e ach nostril Nasally Three times a day for 4 day(s) Active Amoxicillin 500 MG 1 capsule Orally NEEDED FOR DENTIST Active Calcium 500 MG 1 tablet Orally Once a day Active Tramadol & Dietary Manage Prod Active Vitamin D3 Ultra Potency 77986 UNIT 1 tablet Orally as directed Active [...] Problem Status W/U Status Risk Notes Problem 74746355 Rectal bleeding (K62.5) Active confirmed Problem 364760275 Gastro-esophagea l reflux disease without esophagitis (K21.9) Active confirmed Problem 57246298 Cough (R05) Active confirmed Problem 069982329 Urinary incontinence, unspecified type (R32) Active confirmed Plan Of Treatment Pending Test Test Name Order Date XR GI SERIES 07/14/2015 Insurance Providers Payer Name Payer Address Payer Phone Subscriber Number Group Number Insured Name Patient Relationship to Insured Coverage Start Date Coverage End Date MEDICARE OF [place] [address] [place] [address] [phone] [id number] KAY COLLINS Self - patient is the insured [employer] [address] [place] [id number] [id number] KAY COLLINS Self - patient is the insured Medical (General) History Medical History History ICD Code EGD/colonoscopy 01/03/2006. No evidence of Morse's esophagus. Hyperplastic colon polyp. Seasonal allergic rhinitis hypertension hypercholesterolemia scoliosis arthritis depression Surgical History Surgery Date(Month/Year) Vocal cord polyp 2006 Multiple back and neck surgeries rotator cuff surgery both knee replacement left
[2024-12-18 08:30] LABS: MANUAL DIFF FLAG NO
[2024-12-18 08:50] LABS: Basophils Absolute Auto 0.1 X10*3/uL (0.0-0.2); Basophils Percent Auto 0.6 % (0-2); Eosinophils Absolute Auto 0.3 X10*3/uL (0.0-0.4); Eosinophils Percent Auto 2.6 % (0-4); Hematocrit 40.7 % (37.0-47.0); Hemoglobin 13.4 g/dl (12.0-16.0); Imm Gran Abs Auto 0.09 X10*3/uL (0.00-0.03); Imm Gran Pct Auto 0.8 % (0.0-0.4); Lymphocytes Absolute Auto 2.7 X10*3/uL (1.2-4.9); Lymphocytes Percent Auto 25.6 % (20-40); Mean Corpuscular HGB Conc 32.9 g/dl (31.0-35.0); Mean Corpuscular Volume 94.2 fL (80.0-98.0); Mean Platelet Volume 9.7 fL (9.4-12.3); Monocytes Absolute Auto 0.9 X10*3/uL (0.1-1.2); Neutrophils Absolute Auto 6.7 x10*3/uL (2.0-8.3); Neutrophils Percent Auto 62.4 % (45-73); Platelet Count 337 X10*3/uL (160-400); Red Blood Count 4.32 X10*6/uL (4.20-5.50); Red Cell Distribution Width 14.7 % (11.0-16.0); White Blood Count 10.7 X10*3/uL (4.8-10.8)
[2024-12-18 09:03] LABS: Appearance Urine Turbid; Color Urine Yellow; Glucose Urine UA Negative (Negative); Leukocyte Esterase Urine Negative (Negative); Nitrite Urine Negative (Negative); PH 5.5 (5.0-9.0); Urine Blood Negative (Negative); Urine Ketones Negative (Negative); Urine Protein Negative (Neg-Trace)
[2024-12-18 09:38] LABS: Alanine Aminotransferase 15 U/L (0-31); Albumin Level 4.3 g/dL (3.5-5.0); Alkaline Phosphatase 104 U/L (39-117); Anion Gap 13 (12-20); Aspartate Amino Transferase 20 U/L (5-31); Bilirubin Total 0.6 mg/dL (0.0-1.0); Blood Urea Nitrogen 25 mg/dL (9-16); Calcium 9.5 mg/dL (8.4-10.2); Carbon Dioxide 24 mmol/L (22-29); Chloride 111 mmol/L (96-108); Estimated Glomerular Filt Rate 50; Glucose Fasting 95 mg/dL (60-99); Potassium 4.1 mmol/L (3.3-5.1); Sodium 144 mmol/L (135-145); Total Protein 7.3 g/dL (6.5-8.0)
[2024-12-18 10:01] LABS: TSH reflex Free T4 3.51 uIU/mL (0.32-4.0)
[2024-12-18 10:10] LABS: Folate 8.5 ng/mL (> or = 4.0); Vitamin B12 280 pg/mL (200-900)
== END 2024-12-18 08:12 | disposition home or self-care (01) ==
LOC: HO.LAB 08:11
PROVIDERS: PCP Physician Assistant; Visit Provider Physician Assistant
DX: F33.9 Major depressive disorder, recurrent, unspecified (principal); Z13.220 Encounter for screening for lipoid disorders; I10 Essential (primary) hypertension; E78.00 Pure hypercholesterolemia, unspecified; R41.3 Other amnesia
CPT/HCPCS: 36415; 80053; 81003; 82607; 82746; 83735; 84443; 85025

== ENCOUNTER 2024-12-30 10:53 | Outpatient (AMB) | payer MEDICARE, OTHER, SELFPAY ==
--- NOTE | 2024-12-30 11:07 | AM.OFFVISNUR ---
Intake Visit Reasons: Evenity #6 Allergies bee pollen Allergy (Unknown, Verified 10/30/24 12:52) Unknown house dust mite Allergy (Unknown, Verified 10/30/24 12:52) Unknown adhesive tape Adverse Reaction (Intermediate, Verified 10/30/24 12:52) Rash Office Meds romosozumab-aqqg 210 mg/2.34 mL(105 mg/1.17 mL x2)subcutaneous syringe Performing Provider: Rommel Lopez MD Performing Location: [facility] Administered by: Rosalinda Gimenez RN on 12/30/24 11:07 Dose Route Admin Location Dispensed Lot Number Expiration Date NDC Street Commissioner 210 mg subcut bilateral upper arms 2.34 mL [id number] 02/25/27 23072-785-83 [facility] Comments: Patient tolerated injection well and denies any problems with previous injections. Assessment & Plan Assessment & Plan Orders: Orders AMB Romosozumab Injection Patient Supplied Today M81.0 - Age-related osteoporosis without current pathological fracture Medications: New romosozumab-aqqg 210 mg (2.34 mL) subcut ONCE 2.34 mL 0RF M81.0 - Age-related osteoporosis without current pathological fracture Coding
--- OUTSIDE RECORDS SUMMARY | 2024-12-30 11:50 | XMS_ITS | Data Portability ---
Author Organization [facility] Pain Managem RONAN rodriguez PAIN OFFICE Address [address] [facility] [address] [place] [address] Care Team Providers Care Set O Type Operator Name Role Phone SHALA DELGADO Referring Provider ANGEL LUIS RALPH Primary Care Provider Assessment Encounter Date Assessment Date Assessment LastModified by Organization Details LastModified Time 08/16/2015 08/16/2015 Brenda Wolf is a 79 year old woman with complaints oflow back pain . On exam, she has pain on flexion and a positivefacet loadingon the right. MRI Lumbar spine shows Marked [...] and disc herniation. She is here for aleft facet joint injections at L4-5 and L5-S1 levels under fluoroscopic guidance. The risks and benefits of the procedure were discussed in detail. She wishes to proceed. She will follow up in four weeks. She iscomplaining of pain in her left shoulder . I will order an X-Ray of her left shoulder .She will follow in 3-4 weeks. [email or web address] Not available 08/16/2015 13:06:36 09/01/2015 09/01/2015 Brenda Wolf is a 79 year old woman with complaints of low back pain radiating into both hips, right is greater than left . On exam, she has pain on flexion and a positivefacet loadingon the right. MRI Lumbar spine shows Marked [...] levels of disc osteophyte complex and disc herniation.She reports good pain benefit after right facet joint injections at L4-5 and L5-S1 levels under fluoroscopic guidance with return of pain back to baseline. I recommend right medial branch block under fluoroscopic guidance.The risks and benefits of the procedure were discussed in detail. She wishes to proceed.An appointment has been booked for the same. She needs a tow motor driver on the day of the procedure. [...] a 79 year old woman with complaints of low back pain radiating into both hips, right is greater than left . On exam, she has pain on flexion and a positivefacet loadingon the right. MRI Lumbar spine shows Marked [...] levels of disc osteophyte complex and disc herniation.She reports good pain benefit after right facet joint injections at L4-5 and L5-S1 levels under fluoroscopic guidance with return of pain back to baseline.She is here for aright medial branch block under fluoroscopic guidance.The risks and benefits of the procedure were discussed in detail. She wishes to proceed. If she has good pain benefit after the medial branch block , we will proceed with the radiofrequency ablation for her. She was advised to keep a pain diary. [email or web address] Not available 09/08/2015 14:23:25 09/13/2015 09/13/2015 Brenda Wolf is a 79 year old woman with complaints of low back pain radiating into both hips, right is greater than left . On exam, she has pain on flexion and a positivefacet loadingon the right. MRI Lumbar spine shows Marked [...] levels of disc osteophyte complex and disc herniation.She reports good pain benefit after right facet joint injections and medial branch blocks at L4-5 and L5-S1 levels under fluoroscopic guidance with return of pain back to baseline.[facility], L5 and S1 medial branches under fluoroscopic guidance.The risks and benefits of the procedure were discussed in detail. She wishes to proceed. She will follow up in six weeks. [email or web address] Not available 09/13/2015 15:04:09 09/23/2015 09/23/2015 Brenda Wolf is a 79 year old woman with complaints of low back pain radiating into both hips, right is greater than left .She is here for afollow up after a right radiofrequency ablation of L4, L5 and S1 medial branches under fluoroscopic guidance. She reports muscular [...] transder mal 12 hour patch 2015 016 venturan [id number], [address] [place], [address], 6 11:36:11 Celebrex 200 mg capsule 2015 016 [id number], [address] [place], [address], 08:56:14 Patient TargetsNo targets recorded. Patient Instructions Encounter Date Encounter Id Patient Instructions Last Modified By Organization Details Last Modified Time 08/16/2015 [id number] She was advised against bed rest lasting longer than four days and to continue activities as tolerated. [email or web address] Not available 08/16/2015 13:04:51 09/01/2015 [id number] She was advised against bed rest lasting longer than four days and to continue activities as tolerated. [email or web address] Not available 09/01/2015 15:28:37 09/07/2015 [id number] She was advised against bed rest lasting longer than four days and to continue activities as tolerated. [email or web address] Not available 09/08/2015 14:18:24 09/13/2015 [id number] She was advised against bed rest lasting longer than four days and to continue activities as tolerated. [email or web address] Not available 09/13/2015 14:59:45 09/23/2015 [id number] She was advised against bed rest lasting longer than four days and to continue activities as tolerated. [email or web address] Not available 09/27/2015 10:03:45 Reason for Referral None Reported. Results Created Date Observation Date Name Description Value Unit Range Abnormal Flag Note LastModifiedBy Organization Detail LastModifiedTime 08/22/19 16 08/22/2015 x-ray , tony lissette, 2 views No observ ation record ed. [facility] Imaging Dept [address] [place] [address], [place], [address], 09/01/2015 15:28:37 Result Notes None recorded. Problems Name Problem SNOMED Code Status Onset Date Resolution Date Notes Provider Name and Address Organization Details Recorded Time Enthesopathy of hip region 81560115 Active Johnny henning MD [address] , [address], [place], [address], [place] [facility] 6 11:36:10 Lumbosacral spondylosis without myelopathy 51300828 Active Johnny henning MD [address] , [address], [place], [address], [place] [facility] 6 11:36:10 Lumbar post-laminecto my syndrome 598469818 Active Johnny henning MD [address] , [address], [place], [address], [place] [facility] 6 11:36:10 Lumbosacral radiculitis [id number] Jillian henning MD [address] , [address], [place], [address], [place] [facility] 6 11:36:10 Disorder of bursa of shoulder region 03173220 Jillian henning MD [address] , [address], [place], [address], [place] [facility] 6 11:36:11 Muscle pain 12578729 Jillian henning MD [address] , [address], [place], [address], [place] [facility] 6 11:36:10 Problem Notes None recorded. Procedures Surgical History Date Name Laterality Status Provider Name and Address Organization Details Recorded Time 09/13/19 16 Radiofrequency of Lumbar/Sacral medial branches supplying the facets under fluoroscopic guidance completed Johnny Montanez MD [address] [facility] , [address], [place], [address], [place] [facility] 09/14/2015 14:17:33 09/07/19 16 Lumbar median branch block under fluroscopic guidance completed Johnny Montanez MD [address] [facility] , [address], [place], [address], [place] [facility] 09/08/2015 14:23:25 08/16/19 16 Fluoroscopic Guided Lumbar Facet Steroid Injections of levels completed Johnny Montanez MD [address] [facility] , [address], [place], [address], [place] [facility] 08/16/2015 13:09:50 03/08/20 15 Fluoroscopic Guided Lumbar Facet Steroid Injections of levels completed Johnny Montanez MD [address] [facility] , [address], [place], [address], [place] [facility] 03/09/2015 [...] 10:58:13 Knee Surgery completed Angel Luis Mendieta [place] - [facility] 03/01/2015 10:58:13 Other completed Angel Luis Mendieta [place] - [facility] 03/01/2015 10:58:13 Appendectomy completed Angel Luis Mendieta [place] - [facility] 03/01/2015 15:26:13 Imaging Results None recorded. Procedure Notes None recorded. Medical Equipment None [...] % 182 mm[Hg] 72 mm[Hg] Angel Luis Mendieta [place] - [facility] 6 10:23:34 Date Recorded Oxygen saturation Oxygen saturation in Arterial blood by Pulse oximetry Heart rate Systolic blood pressure Diastolic blood pressure Provider Name and Address Organization Details Last Updated DateTime 6 97 % 97 % 76 /min 118 mm[Hg] 58 mm[Hg] Angel Luis Mendieta [place] - [facility] 6 15:00:38 Date Recorded Oxygen saturation Oxygen saturation in Arterial blood by Pulse oximetry Heart rate Systolic blood pressure Diastolic blood pressure Provider Name and Address Organization Details Last Updated DateTime 6 99 % 99 % 65 /min 140 mm[Hg] 88 mm[Hg] Angel Luis Mendieta [place] [facility] 6 09:43:17 Date Recorded Oxygen saturation Oxygen saturation in Arterial blood by Pulse oximetry Heart rate Systolic blood pressure Diastolic blood pressure Provider Name and Address Organization Details Last Updated DateTime 6 98 % 98 % 67 /min 157 mm[Hg] 45 mm[Hg] Angel Luis Mendieta [place] [facility] 6 10:18:19 Date Recorded Oxygen saturation Oxygen saturation in Arterial blood by Pulse oximetry Heart rate Systolic blood pressure Diastolic blood pressure Provider Name and Address Organization Details Last Updated DateTime 6 97 % 97 % 69 /min 143 mm[Hg] 76 mm[Hg] Angel Luis Mendieta [place] - [facility] 6 08:56:14 Social History Question Answer Notes LastModified by Organizat ion Details LastModified Time Tobacco Smoking Status Former Smoker Quit x 40 years Not Available [employer] 05/13/2020 03:16:11 Which Illicit Or Recreational Drugs Have You Used? No [id number] Information not available 05/13/2020 Education 12 [email or web address] Information no t available 03/01/2015 Live Alone Or With Others? Alone [email or web address] Information not available 03/01/2015 Marital Status [facility] In[facility] n not available 03/01/2015 How Many Years Have You Smoked Tobacco? 20 [id number] Information not available 05/13/2020 Sex: Unknown Functional Status Question Answer Note LastModified by Organization D etails LastModified Time What is your level of alcohol consumption? Moderate Wine [id number] Information not available 05/13/2020 Are you currently employed? No [id number] Information not available 05/13/2020 Mental Status None recorded. Family History Relationship [...] SNOMED-CT Code Diagnosis ICD10 Code Diagnosis Note [id number] MD RONAN Treviño PAIN OFFICE [address] [facility] [address] [facility] [place] [address] 03/01/2015 10:09:29 03/02/2015 11:29:26 Lumbar post-laminectomy syndrome 661987410 Lumbosacra l radiculitis 87376991 Lumbosacra l spondylosis without myelopathy 29360662 Enthesopat hy of hip region 65631164 75600 Johnny Montanez MD [facility] [address] [place] [address] 03/08/2015 14:21:23 03/09/2015 09:25:14 Lumbosacral spondylosis without myelopathy 59653169 Enthesopat hy of hip region 43530508 Lumbosacra l radiculitis 63077605 Lumbar post-laminectomy syndrome 992044068 02736 Johnny Montanez MD [facility] PA[facility] [address] [place] [address] 04/11/2015 14:50:34 04/12/2015 09:13:56 Lumbosacral spondylosis without myelopathy 18000410 Enthesopat hy of hip region 45863663 Lumbosacra l radiculitis 23505285 Lumbar post-laminectomy syndrome 835610310 62213 Johnny Montanez MD PAIN OFFICE [address] [place] [address] 08/16/2015 10:11:47 08/16/2015 14:46:00 Lumbosacral spondylosis without myelopathy 21334773 M47.817 Enthesopat hy of hip region 69458950 M76.9 Lumbosacra l radiculitis 72608700 M54.17 Lumbar post-laminectomy syndrome 140980817 M96.1 Disorder o f bursa of shoulder region 10373843 M25.812 90425 Johnny Montanez MD [facility] [address] [place] [address] 09/01/2015 14:03:53 09/01/2015 15:37:11 Lumbosacral spondylosis without myelopathy 81015784 M47.817 Enthesopat hy of hip region 37028263 M76.9 Disorder o f bursa of shoulder region 73551071 M25.812 Lumbosacra l radiculitis 85132474 M54.17 Lumbar post-laminectomy syndrome 628444534 M96.1 37842 Johnny Montanez MD PAIN OFFICE [address] [place] [address] 09/07/2015 09:36:32 09/08/2015 14:24:03 Lumbosacral spondylosis without myelopathy 83303809 M47.817 Enthesopat hy of hip region 26962994 M70.61 Disorder o f bursa of shoulder region 77064301 M25.812 Lumbosacra l radiculitis 72135857 M54.17 Lumbar post-laminectomy syndrome 347690719 M96.1 16466 Johnny Montanez MD [facility] [address] [place] [address] 09/13/2015 10:08:37 09/13/2015 15:13:45 Lumbosacral spondylosis without myelopathy 97807554 M47.817 Lumbar post-laminectomy syndrome 835721116 M96.1 Enthesopat hy of hip region 19672262 M70.61 Disorder o f bursa of shoulder region 76940573 M25.812 Lumbosacra l radiculitis 11571669 M54.17 11175 Johnny Montanez MD PAIN OFFICE [address] [place] [address] 09/23/2015 08:47:47 09/27/2015 11:36:33 Lumbosacral spondylosis without myelopathy 15223622 M47.817 Lumbar post-laminectomy syndrome 890746113 M96.1 Lumbosacra l radiculitis 42920936 M54.17 Muscle pain 50649306 M79 .1 Enthesopat hy of hip region 05896832 M70.61 Disorder o f bursa of shoulder region 09986382 M25.812 Health Concerns Section Related Observation LastModified by Organization Detai ls LastModified Time None Recorded Concern Status LastModified by Organization Details LastModified Time None Recorded Advance Directives Directive None Recorded Payers Encounter Date Sequence Insurance Name Policy Number Policy Blanco Covered Member ID Blanco Member ID Guarantor Name 08/16/2015 1 [place]: [email or web address] Brenda Wolf [id number] Brenda Wolf 08/16/2015 2 [facility] (MEDICARE SUPPLEMENT) Brenda Wolf [id number] Brenda Andras 09/01/2015 1 MEDICARE B-[place]: N[employer] Brenda M Andras [id number] Brenda Andras 09/01/2015 2 [facility] (MEDICARE SUPPLEMENT) Brenda Andras [id number] Brenda Andras 09/07/2015 1 MEDICARE B-KS: [employer] Brenda M Andras [id number] Brenda Andras 09/07/2015 2 [facility] (MEDICARE SUPPLEMENT) Brenda Andras [id number] Brenda Andras 09/13/2015 1 MEDICARE B-KS: NATIONAL [facility] SERVICES Brenda M Andras [id number] Brenda Andras 09/13/2015 2 [facility] (MEDICARE SUPPLEMENT) Brenda Andras [id number] Brenda Andras 09/23/2015 1 MEDICARE B-KS: N[employer] Brenda M Andras [id number] Brenda Andras 09/23/2015 2 [facility] (MEDICARE SUPPLEMENT) Brenda Andras [id number] Brenda Andras Notes Date Note Type [...] in her left shoulder. Johnny Montanez MD [address] [place] [address] , [address], [place], [address], [place] [facility] 08/18/2015 09:24:14 09/01/2015 text/html She is here for a follow up after a left shoulder X-ray. 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 She states she has seen a PA at [facility] and she recommended a total knee [...] an issue presently. Johnny Montanez MD [address] [facility] , [address], [place], [address], [facility] - Pain Management 09/02/2015 11:09:45 09/07/2015 text/html She is here for a trial of right median branch block under fluoroscopic guidance at L4, L5and S1 medial branches. Johnny Montanez MD [address] [facility] , [address], [place], [address], [place] - [facility] 09/08/2015 15:45:44 09/13/2015 text/html [...] with the RF. Johnny Montanez MD [address] [facility] , [address], [place], [address], [employer] - [facility] Management 09/14/2015 14:17:41 09/23/2015 text/html She is here for a follow up. She states she is noticing pain in her muscles in the low back and she had difficulty sleeping due to pain and muscle spasms since the radiofrequency ablation. She has been applying ice. She has seen Tamika at [facility] and has started synvisc injections for [...] or bowel incontinence. Johnny Montanez MD [address] [facility] , [address], [place], [address], [place] - [facility] 10/03/2015 08:52:43 OBGyn Episode No OBEpisode recorded.
== END 2024-12-30 11:06 | disposition home or self-care (01) ==
LOC: HO.ENCR 10:53
PROVIDERS: PCP Physician Assistant; Visit Provider Internal Medicine Endocrinology, Diabetes & Metabolism
DX: M81.0 Age-related osteoporosis without current pathological fracture (principal)

== ENCOUNTER → 2024-12-30 10:53 | Outpatient (BNVA) | payer MEDICARE, OTHER, SELFPAY | PROVIDERS: PCP Physician Assistant; Visit Provider Internal Medicine Endocrinology, Diabetes & Metabolism | DX: M81.0 Age-related osteoporosis without current pathological fracture (principal) | CPT/HCPCS: 96372; J3111 ==

== ENCOUNTER 2025-01-21 09:10 | Outpatient (AMB) | payer MEDICARE, OTHER, SELFPAY ==
--- NOTE | 2025-01-21 09:18 | A.OFFPC_ITS ---
Vital Signs 01/21/25 09:20 01/21/25 09:27 Height 4 ft 10 in Weight 179 lb 6 oz BMI 37.5 BP 158/82 H 160/74 H Blood Pressure Location Rt brachial Rt brachial Position Sitting Sitting Respiration 16 Pulse 76 Pulse Source Pulse Oximeter Temp 98.4 F Temp Source Oral Pulse Oximetry (%) 96 Oxygen Delivery Method Room Air Intake Visit Reasons: labs and meds 30 min appointments Intake Note: Mediation and lab follow up. Needs refill on Atorvastatin and hydrocortisone cream Remote Sensing Specialist Required: No Allergies bee pollen Allergy (Unknown, Verified 01/21/25 09:19) Unknown house dust mite Allergy (Unknown, Verified 01/21/25 09:19) Unknown adhesive tape Adverse Reaction (Intermediate, Verified 01/21/25 09:19) Rash Medication List - Last Reconciled 01/21/25 by Allison Ham PA-C albuterol sulfate 90 mcg/actuation 2 puffs PO Q6H PRN amlodipine 5 mg PO DAILY atenolol 25 mg PO DAILY bacitracin 1 appl topical Q8H cholecalciferol (vitamin D3) 50 mcg PO DAILY fluticasone furoate-vilanterol 200-25 mcg/dose (Breo Ellipta) 1 ea inhalation DAILY fluticasone propionate 50 mcg/actuation 1 spray intranasal BID hydrocortisone-pramoxine 2.5-1 % 1 appl NV BID PRN ipratropium bromide 2 sprays intranasal Q12H losartan 100 mg PO DAILY nystatin 1 appl topical BID PRN oxycodone 5 mg PO Q8H PRN 28 days oxycodone myristate CR-ER (Xtampza ER) 9 mg PO Q12H 28 days pantoprazole 40 mg PO DAILY@0630 prednisone 40 mg (2 x 20 mg) PO DAILY 5 days rivaroxaban (Xarelto) 20 mg PO QPM 90 days romosozumab-aqqg (Evenity) 210 mg (2.34 mL) subcut .q month 12 months sertraline 100 mg PO DAILY trazodone 100 mg PO BEDTIME vibegron (Gemtesa) 75 mg PO DAILY walker A rolling walker with seat use daily As directed Tobacco use date assessed: 01/21/25 Fall risk assessment: No Falls in past year Last assessed Fall Risk: 01/21/25 Dental Screening Dental Screen Date: 01/21/25 Did you have a dental visit in the last 12 months?: Yes Did you have a dental problem in the last 6 months where you did not have access to dental care?: No Was dental information given to patient?: Patient has dentist HPI labs and meds 30 min appointments HPI Details merly is an 89-year-old female who presents today for a follow up. She has a significant past medical history of hypertension, CKD, GERD, chronic pain disorder, s/p laminectomy syndrome, mood disorder, urge incontinence and AFib. She is accompanied today by her daughter on the phone. CV: bp today is 160/74. She is currently on amlodipine 5 mg, losartan 50 mg, and atenolol 50 mg. Compliant with Xarelto. Follows with cardiology. Bps at home have been a little elevated. Uro: Following with urology for right kidney cyst. We will repeat ultrasound in 1 year. PULM: She does have a hx of COPD. Musculoskeletal: She is seeing Dr. Lopez for her SI joint injections and it has helped. She states that he is going to do injections in the right knee. She has been using Tylenol and oxycodone as prescribed. Xtampza just makes her feel too fatigued like it too strong. She states sometimes she does not take it. She has a hard time sleeping with the pain and it causes some anxiety. She is not a surgical candidate. I trialed her on morphine extended release which she states she never picked this up because it was not covered. -Seeing back specialist in [place] Dr. Ra ochoa -has narcan at home Psych: She Was recently increased on the Zoloft to 100 mg and trazodone 100 mg for some time and feels well-controlled with this. She feels that the increased dosage is helpful. GI: She states that she does not go for any routine screening tests. She does follow with a ironer who has offered her a colonoscopy every year but she declines it. She follows for her pantoprazole. Endo: Following with endocrinology for her osteoporosis. She is on evenity. he is lifting weights again. She is doing bone and balance . She was on vitamin D and calcium and plans to start evenity next week. She is following with Dr. Lopez. [facility] Medical History Generalized anxiety disorder Insomnia Major depression, recurrent, chronic Arthritis High blood cholesterol COPD (chronic obstructive pulmonary disease) Urge incontinence Joint pain Chronic back pain HTN (hypertension) Bleeding hemorrhoid Back pain with history of spinal surgery Surgical History History of back surgery History of surgery Family History Father Thrombosis Mother Diabetes Heart rate problem Social History (Updated 01/21/25 @ 13:46 by Siomara Abebe CMA) Household Members: None Housing: Apartment Do you presently have visiting nurse or other home services: Yes ([employer] for housekeeping 2 times per week) Alcohol intake: current Alcohol intake frequency: does not drink Patient Tobacco Use Status: Former Tobacco user Tobacco use type: Cigarette Cigarettes Per Day: 15 Years Smoked: 10 e-Cigarette/Vaping Use: Never Used Second Hand Smoke Exposure: No service: No Current occupational status: retired Cognitive needs: No Hearing needs: Yes (hearing aids) Vision needs: No Questionnaire Thrive Questionnaire Date Thrive assessed: 07/29/24 I am a: Patient What is your living situation today?: I have a steady place to live THRIVE Score: 0 AUDIT C Alcohol Use Questionnaire (AUDIT-C) 1. How often do you have a drink containing alcohol?: 2-3 times a week 2. How many drinks containing alcohol do you have on a typical day when you are drinking?: 1 or 2 3. How often do you have six or more drinks on one occasion?: Never Total Score: 3 RAYNE-7 AMB Questionnaire RAYNE-7 Date RAYNE - 7 assessed: 01/29/24 Source: Developed by Drs. Rommle Olivares, Kaylee Fabian, Al Ny and colleagues, with an educational ken from [employer]. Physical exam (Primary Care) Vital Signs: Last Vital Signs Temp 98.4 F 01/21/25 09:20 Pulse 76 01/21/25 09:20 Resp 16 01/21/25 09:20 BP 160/74 H 01/21/25 09:27 Pulse Ox 96 01/21/25 09:20 Oxygen Delivery Method Room Air 01/21/25 09:20 BMI result Body Mass Index 37.5 Tobacco/Smoking Status: Tobacco use Status Tobacco use date assessed 01/21/25 01/21/25 09:30 Patient Tobacco Use Status Former Tobacco user 01/21/25 09:30 Tobacco use type Cigarette 01/21/25 09:30 e-Cigarette/Vaping Use Never Used 01/21/25 09:30 Thrive Assessment: Date of Thrive Assessment Date Thrive assessed 07/29/24 01/21/25 09:30 Const Orientation/consciousness: patient oriented x3 HENMT Ears: hearing grossly normal bilaterally Neck Thyroid: Thyroid normal Lymphatic: no lymphadenopathy noted Resp Auscultation: clear to auscultation bilaterally Cardio Rate: regular rate Rhythm: regular rhythm Heart sounds: S1 normal heart sound present and S2 normal heart sound present GI Inspection: Yes normal to inspection Palpation (GI): Soft to palpation and Other GI palpation findings present (nontender, no cva tenderness) Auscultation: normoactive bowel sounds Rectal Exam - Female: deferred Skin General skin exam: no rashes or lesions noted Neuro General: patient oriented x3, gait normal and no focal motor deficits Coding Level of Care Code Est Pt Level 4 (50628) Complex EM visit Add On G2211 Diagnoses Primary hypertension I10 Hypertension type: primary hypertension Major depression, recurrent, chronic F33.9 Chronic pain syndrome G89.4 Assessment & Plan Assessment & Plan (1) HTN (hypertension): Code(s): I10 - Essential (primary) hypertension Category: Medical Qualifiers: Hypertension type: primary hypertension Qualified Code(s): I10 - Essential (primary) hypertension Plan: increase losartan to 100 mg continue norvasc and atenolol (2) Major depression, recurrent, chronic: Code(s): F33.9 - Major depressive disorder, recurrent, unspecified Category: Medical Plan: improved with increased sertraline and trazodone (3) Chronic pain syndrome: Code(s): G89.4 - Chronic pain syndrome Category: Medical Plan: will try gabapentin stop xtampza continue oxycodone Orders: Referrals Podiatry Referral B35.1 - Tinea unguium Medications: New losartan 100 mg PO DAILY 90 tabs 3RF gabapentin 300 mg PO BID 60 caps 3RF hydrocortisone-pramoxine 2.5-1 % 1 appl NV BID PRN 30 grams 4RF hemorrhoids Discontinued losartan Discontinued Reason: Doctor's Order 50 mg PO DAILY 90 tabs 3RF oxycodone myristate CR-ER (Xtampza ER) must administer with a meal/food; Partial Fill upon patient request. Discontinued Reason: Doctor's Order 9 mg PO Q12H 28 days 56 caps 0RF Patient Instructions: increase losartan to 100 mg daily, continue amlodipine 5 mg daily and atenolol 25 mg daily stop/hold xtampza- start gabapentin 300 mg twice a day continue oxycodone as needed
[2025-01-21 09:20] VITALS: BP 158/82; PULSE 76; RESP 16; TEMP 36.9; O2SAT 96; BMI 37.5
[2025-01-21 09:27] VITALS: BP 160/74
--- OUTSIDE RECORDS SUMMARY | 2025-01-21 10:00 | XMS_ITS | Data Portability ---
Author Organization [facility] Pain Managem ent, PAIN OFFICE Address [address] [address] [place] [address] Care Team Providers Care Bargain Table Clerk Name Role Phone DANNY SHALA Referring Provider ANISHA RALPH Primary Care Provider [...] booked for the same. She needs a industrial tractor driver on the day of the procedure. [...] was advised to keep a pain diary. [email or web address] Not available 09/08/2015 14:23:25 09/13/2015 09/13/2015 Brenda [...] pain back to baseline.[facility], L5 and S1 [...] patch 2015 016 miguel [id number], [address] [facility] [place], [address], 6 11:36:11 Celebrex 200 mg capsule 2015 016 [id number], [address] [place], [address], 6 08:56:14 Patient TargetsNo targets recorded. Patient Instructions Encounter Date Encounter Id Patient Instructions Last Modified By Organization Details Last Modified Time 08/16/2015 [id number] She was advised against bed rest lasting longer than four days and to continue activities as tolerated. [email or web address] Not available 08/16/2015 13:04:51 09/01/2015 [id number] She was advised against bed rest lasting longer than four days and to continue activities as tolerated. [email or web address] Not available 09/01/2015 15:28:37 09/07/2015 [id number] She was advised against bed rest lasting longer than four days and to continue activities as tolerated. [email or web address] Not available 09/08/2015 14:18:24 09/13/2015 [id number] She was advised against bed rest lasting longer than four days and to continue activities as tolerated. [email or web address] Not available 09/13/2015 14:59:45 09/23/2015 [id number] She was advised against bed rest lasting longer than four days and to continue activities as tolerated. [email or web address] Not available 09/27/2015 10:03:45 Reason for Referral None Reported. Results Created Date Observation Date Name Description Value Unit Range Abnormal Flag Note LastModifiedBy Organization Detail LastModifiedTime 08/22/19 16 08/22/2015 x-ray , tony lissette, 2 views No observ ation record [facility] Imaging Dept [address] [place] [address], [address], 09/01/2015 15:28:37 Result Notes None recorded. Problems Name Problem SNOMED Code Status Onset Date Resolution Date Notes Provider Name and Address Organization Details Recorded Time Enthesopathy of hip region 54527363 Active Johnny henning MD [address] , [address], [facility] [place], [address], [place] [facility] 6 11:36:10 Lumbosacral spondylosis without myelopathy 92363894 Active Johnny henning MD [address] , [address], [facility] [place], [address], [place] [facility] 6 11:36:10 Lumbar post-laminecto my syndrome 909028194 Jillian henning MD [address] , [address], [facility] [place], [address], [place] [facility] 6 11:36:10 Lumbosacral radiculitis 94887181 Jillian henning MD [address] , [address], [facility] [place], [address], [place] [facility] 6 11:36:10 Disorder of bursa of shoulder region 55598850 Jillian henning MD [address] , [address], [facility] [place], [address], [place] [facility] 6 11:36:11 Muscle pain 96052309 Jillian henning MD [address] , [address], [facility] [place], [address], [place] [facility] 6 11:36:10 Problem Notes None recorded. Procedures Surgical History Date Name Laterality Status Provider Name and Address Organization Details Recorded Time 09/13/19 16 Radiofrequency of Lumbar/Sacral medial branches supplying the facets under fluoroscopic guidance completed Johnny Montanez MD [address] , [address], [place], [address], [place] [facility] 09/14/2015 14:17:33 09/07/19 16 Lumbar median branch block under fluroscopic guidance completed Johnny Montanez MD [address] , [address], [place], [address], [place] [facility] 09/08/2015 14:23:25 08/16/19 16 Fluoroscopic Guided Lumbar Facet Steroid Injections of levels completed Johnny Montanez MD [address] , [address], [place], [address], [place] [facility] 08/16/2015 13:09:50 03/08/20 15 Fluoroscopic Guided Lumbar Facet Steroid Injections of levels completed Johnny Montanez MD [address] , [address], [place], [address], [place] [facility] 03/09/2015 09:22:44 [...] 03/01/2015 10:58:13 Knee Surgery completed Anisha Mendieta [place] - [place] [...] % 182 mm[Hg] 72 mm[Hg] Anisha Mendieta [place] [facility] 6 10:23:34 Date Recorded Oxygen saturation Oxygen saturation in Arterial blood by Pulse oximetry Heart rate Systolic blood pressure Diastolic blood pressure Provider Name and Address Organization Details Last Updated DateTime 6 97 % 97 % 76 /min 118 mm[Hg] 58 mm[Hg] Anisha Mendieta [place] [facility] 6 15:00:38 Date Recorded Oxygen saturation Oxygen saturation in Arterial blood by Pulse oximetry Heart rate Systolic blood pressure Diastolic blood pressure Provider Name and Address Organization Details Last Updated DateTime 6 99 % 99 % 65 /min 140 mm[Hg] 88 mm[Hg] Anisha Mendieta [place] [facility] 6 09:43:17 Date Recorded Oxygen saturation Oxygen saturation in Arterial blood by Pulse oximetry Heart rate Systolic blood pressure Diastolic blood pressure Provider Name and Address Organization Details Last Updated DateTime 6 98 % 98 % 67 /min 157 mm[Hg] 45 mm[Hg] Anisha Mendieta [place] [facility] 6 10:18:19 Date Recorded Oxygen saturation Oxygen saturation in Arterial blood by Pulse oximetry Heart rate Systolic blood pressure Diastolic blood pressure Provider Name and Address Organization Details Last Updated DateTime 6 97 % 97 % 69 /min 143 mm[Hg] 76 mm[Hg] Anisha Mendieta [place] - [facility] 6 08:56:14 Social History Question Answer Notes LastModified by Organizat ion Details LastModified Time Tobacco Smoking Status Former Smoker Quit x 40 years Not Available [employer] 05/13/2020 03:16:11 Which Illicit Or Recreational Drugs Have You Used? No [id number] Information not available 05/13/2020 Education 12 Information no t available 03/01/2015 Live Alone Or With Others? Alone [email or web address] Information not available 03/01/2015 Mar[facility] Status [email or web address] Informatio n not available 03/01/2015 How Many Years Have You Smoked Tobacco? 20 [id number] Information not available 05/13/2020 Sex: Unknown Functional Status Question Answer Note LastModified by Organization D etails LastModified Time What is your level of alcohol consumption? Moderate Wine [id number] Information not available 05/13/2020 Are you currently employed? No [id number] Information not available 05/13/2020 Mental Status None [...] SNOMED-CT Code Diagnosis ICD10 Code Diagnosis Note [id number] MD RONAN Treviño PAIN OFFICE [address] [address] [facility] [place] [address] 03/01/2015 10:09:29 03/02/2015 11:29:26 Lumbar post-laminectomy syndrome 787117719 Lumbosacra l radiculitis 32593582 Lumbosacra l spondylosis without myelopathy 07458283 Enthesopat hy of hip region 01831648 38385 Johnny Montanez MD [facility] [address] [facility] [place] [address] 03/08/2015 14:21:23 03/09/2015 09:25:14 Lumbosacral spondylosis without myelopathy 65410967 Enthesopat hy of hip region 32916768 Lumbosacra l radiculitis 21669287 Lumbar post-laminectomy syndrome 133177521 82642 Johnny Montanez MD [facility] [address] [facility] [place] [address] 04/11/2015 14:50:34 04/12/2015 09:13:56 Lumbosacral spondylosis without myelopathy 21844976 Enthesopat hy of hip region 32479535 Lumbosacra l radiculitis 87145339 Lumbar post-laminectomy syndrome 563316156 38697 Johnny Montanez MD PAIN OFFICE [address] [facility] [place] [address] 08/16/2015 10:11:47 08/16/2015 14:46:00 Lumbosacral spondylosis without myelopathy 50677131 M47.817 Enthesopat hy of hip region 33690880 M76.9 Lumbosacra l radiculitis 05100365 M54.17 Lumbar post-laminectomy syndrome 827658461 M96.1 Disorder o f bursa of shoulder region 65258273 M25.812 75740 Johnny Montanez MD PAIN OFFICE [address] [facility] [place] [address] 09/01/2015 14:03:53 09/01/2015 15:37:11 Lumbosacral spondylosis without myelopathy 26320963 M47.817 Enthesopat hy of hip region 52112228 M76.9 Disorder o f bursa of shoulder region 71979806 M25.812 Lumbosacra l radiculitis 54588366 M54.17 Lumbar post-laminectomy syndrome 992492667 M96.1 [id number] Johnny Montanez MD PAIN OFFICE [address] [place] [address] 09/07/2015 09:36:32 09/08/2015 14:24:03 Lumbosacral spondylosis without myelopathy 01514173 M47.817 Enthesopat hy of hip region 55568898 M70.61 Disorder o f bursa of shoulder region 22680125 M25.812 Lumbosacra l radiculitis 48425300 M54.17 Lumbar post-laminectomy syndrome 498888899 M96.1 67707 Johnny Montanez MD [facility] PA[facility] [address] [facility] [place] [address] 09/13/2015 10:08:37 09/13/2015 15:13:45 Lumbosacral spondylosis without myelopathy 54257726 M47.817 Lumbar post-laminectomy syndrome 076265551 M96.1 Enthesopat hy of hip region 15726389 M70.61 Disorder o f bursa of shoulder region 70297818 M25.812 Lumbosacra l radiculitis 63750675 M54.17 [id number] Johnny Montanez MD PAIN OFFICE [address] [place] [address] 09/23/2015 08:47:47 09/27/2015 11:36:33 Lumbosacral spondylosis without myelopathy 96178610 M47.817 Lumbar post-laminectomy syndrome 985578682 M96.1 Lumbosacra l radiculitis 91812816 M54.17 Muscle pain 45812427 M79 .1 Enthesopat hy of hip region 80250330 M70.61 Disorder o f bursa of shoulder region 63165285 M25.812 Health Concerns Section Related Observation LastModified by Organization Detai ls LastModified Time None Recorded Concern Status LastModified by Organization Details LastModified Time None Recorded Advance Directives Directive None Recorded Payers Insurance Date Sequence Insurance Name Policy Number Policy Blanco Covered Member ID Blanco Member ID Guarantor Name 04/11/2015 1 ROSITA IBANEZA - MEDICARE-[facility] [facility]ARD (MEDICARE) Brenda Wolf [id number] Brenda Wolf 09/01/2015 1 MEDICARE B-[place]: [facility] Brenda Wolf [id number] Brenda Wolf 09/27/2015 2 [facility] (MEDICARE SUPPLEMENT) Brenda Wolf [id number] Brendakarina Wolf Notes Date Note Type Note Provider Name [...] her left shoulder. Johnny Montanez MD [address] , [address], [place], [address], [facility] Pain Management 08/18/2015 09:24:14 09/01/2015 text/html She is here for a follow up after a left shoulder X-ray. 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 She states she has seen a PA at [facility] and she recommended a total [...] an issue presently. Johnny Montanez MD [address] , [address], [place], [address], [facility] Pain Management 09/02/2015 11:09:45 09/07/2015 text/html She is here for a trial of right median branch block under fluoroscopic guidance at L4, L5and S1 medial branches. Johnny Montanez MD [address] , [address], [place], [address], [facility] - Pain Management 09/08/2015 15:45:44 [...] with the RF. Johnny Montanez MD [address] , [address], [place], [address], [facility] Pain Management 09/14/2015 14:17:41 09/23/2015 text/html She is here for a follow up. She states she is noticing pain in her muscles in the low back and she had difficulty sleeping due to pain and muscle spasms since the radiofrequency ablation. She has been applying ice. She has seen Tamika at [facility] and has started synvisc injections for her [...] or bowel incontinence. Johnny Montanez MD [address] , [address], [place], [address], [facility] Pain Management 10/03/2015 08:52:43 OBGyn Episode No OBEpisode recorded.
== END 2025-01-21 10:08 | disposition home or self-care (01) ==
LOC: HO.HMCFM 09:10
PROVIDERS: PCP Physician Assistant; Visit Provider Physician Assistant
DX: I10 Essential (primary) hypertension (principal); F33.9 Major depressive disorder, recurrent, unspecified; G89.4 Chronic pain syndrome

== ENCOUNTER → 2025-01-21 09:10 | Outpatient (BNVA) | payer MEDICARE, OTHER, SELFPAY | PROVIDERS: PCP Physician Assistant; Visit Provider Physician Assistant | DX: I10 Essential (primary) hypertension (principal); F33.9 Major depressive disorder, recurrent, unspecified; G89.4 Chronic pain syndrome | CPT/HCPCS: 99212 ==

== ENCOUNTER 2025-01-27 10:55 | Outpatient (AMB) | payer MEDICARE, OTHER, SELFPAY ==
--- OUTSIDE RECORDS SUMMARY | 2017-02-20 06:52 | XMS_ITS | Continuity of Care Document ---
Author Organization [employer] [facility] cine Address [address] 2nd [place] [address] Phone Care Team Providers Care Aircraft Manager Name Role Phone Rodney Campos MD Unavailable [...] Location Reason(s) For Visit Diagnoses Date Provider [facility], [address] [place] [address], [place], [place], [id number], tel:[phone] [employer] [facility] No Information Beth Stevens. [address] [place] [address], [address] [place] [address], [place], [place], [id number], [place]. tel:[phone] [facility], [address] [place], [place] [address], [place], [place], [id number], tel:[phone] [facility] Spondyls w/o myelopathy or radiculopathy, lumbosacr region Beth Rodney. [address] [place] [address], [place], [place], [address], [place]. tel:[phone] 0221 [facility], [address] [place] [address], [place], [place], [id number], [place] tel:[phone] [facility] No Information [facility]. [address] [place] [address], [id number], [place]. tel:[phone] [facility], [address] [place] [address], [place], [place], [address], [place] tel:[phone] [facility] Spondyls w/o myelopathy or radiculopathy, lumbosacr region Beth Rodney. [address] [place] [address], [place], [place], [id number], [place]. tel:[phone] 2978 [facility], [address] [place] [address], [place], [place], [id number], [place] tel:[phone] [facility] No Information Surgery [facility]. [address] [place] [address], [id number], [place]. tel:[phone] MD_Follow Up Level 4 [facility], [address] [place] [address], [place], [place], [id number], [place] tel:[phone] [facility] Spondylosis without myelopathy or radiculopathy, lumbosacral regionOther spondylosis with radiculopathy, lumbar region Yoli Justice. [address] [place] [address], [address], [place]. tel:[phone] 7195 [facility], [address] [place] [address], [place], [place], [address], [place] tel:[phone] [facility] Spondylosis w/o myelopathy or radiculopathy, thoracic region Beth Rodney. [address] [place] [address], [place], [place], [address], [place]. tel:[phone] [facility], [address] [place] [address], [place], [place], [address], [place] tel:[phone] [facility] No Information [facility]. [address] [place] [address], [id number], [place]. tel:[phone] 8524 [facility], [address] [place] [address], [place], [place], [address], [place] tel:[phone] [facility] Spondylosis w/o myelopathy or radiculopathy, cervical region Blanca Obregon. [address] [place] [address], [place], [place], [address], [place]. tel:[phone] [facility], [address] [place] [address], [place], [place], [address], [place] tel:[phone] [facility] No Information [facility]. [address] [place] [address], [id number], [place]. tel:[phone] [facility], [address] [place] [address], [place], [place], [address], [place] tel:[phone] [facility] Spondylosis w/o myelopathy or radiculopathy, cervical region Beth Stevens. [address] [place] [address], [place], [place], [address], [place]. tel:[phone] 5464 [facility], [address] [place] [address], [place], [place], [address], [place] tel:[phone] [facility] No Information [facility]. [address] [place] [address], [id number], [place]. tel:[phone] [facility], [address] [place] [address], [place], [place], [address], [place] tel:[phone] [facility] Cervical disc disorder w radiculopathy, unsp cervical region Blanca Obregon. [address] [place] [address], [place], [place], [address], [place]. tel:[phone] 8869 [facility], [address] [place] [address], [place], [place], [address], [place] tel:[phone] [facility] No Information [facility]. [address] [place] [address], [id number], [place]. tel:[phone] MD_Follow Up Level 4 [facility], [address] [place], [place] [address], [place], [place], [address], [place] tel:[phone] [facility] Postlaminectomy syndrome, not elsewhere classified Yoli Reshma. [address] [place] [address], [address], [place]. tel:[phone] MD_Follow Up Level 4 [facility], [address] [place], [place] [address], [place], [place], [id number], [place] tel:[phone] [facility] Spondyls w/o myelopathy or radiculopathy, lumbosacr region Otilia Marin. [address] [place] [address], [id number], [place]. tel:[phone] 2846 [facility], [address] [place] [address], [place], [place], [address], [place] tel:[phone] [facility] Cervical disc disorder w radiculopathy, unsp cervical region Beth Stevens. [address] [place] [address], [facility] Floor, [place], [place], [id number], [place]. tel:[phone] [facility], [address] [place], [place] [address], [place], [place], [address], [place] tel:[phone] [facility] No Information [facility]. [address] [place] [address], [id number], [place]. tel:[phone] MD_Follow Up Level 4 [facility], [address] [place], [place] [address], [place], [place], [id number], [place] tel:[phone] [facility] Spondyls w/o myelopathy or radiculopathy, lumbosacr region Broderick Nye. [address] [place] [address], [id number], [place]. tel:[phone] 8039 [facility], [address] [place], [place] [address], [place], [place], [id number], [place] tel:[phone] [facility] Cervical disc disorder w radiculopathy, unsp cervical region Beth Stevens. [address] [place] [address], [place], [place], [id number], [place]. tel:[phone] 1097 [facility], [address] [place] [address], [place], [place], [address], [place] tel:[phone] [facility] No Information [facility]. [address] [place] [address], [id number], [place]. tel:[phone] MD_Follow Up Level 4 [facility], [address] [place] [address], [place], [place], [id number], [place] tel:[phone] [facility] No Information Yoli Justice. [address] [place] [address], [address], [place]. tel:[phone] [facility], [address] [place] [address], [place], [place], [id number], [place] tel:[phone] [facility] No Information Beth Stevens. [address] [place] [address], [place], [place], [address], [place]. tel:[phone] 6024 [facility], [address] [place] [address], [place], [place], [address], [place] tel:[phone] [facility] No Information [facility]. [address] [place] [address], [id number], [place]. tel:[phone] MD_Follow Up Level 4 [facility], [address] [place] [address], [place], [place], [id number], [place] tel:[phone] [facility] Spondylosis without myelopathy or radiculopathy, lumbosacral region Beth Stevens. [address] [place] [address], [place], [place], [address], [place]. tel:[phone] [facility], [address] [place] [address], [place], [place], [address], [place] tel:[phone] [facility] Postlaminectomy syndrome, not elsewhere classified Blanca Obregon. [address] [place] [address], [place], [place], [address], [place]. tel:[phone] [facility], [address] [place] [address], [place], [place], [address], [place] tel:[phone] [facility] No Information [facility]. [address] [place] [address], [id number], [place]. tel:[phone] MD_Follow Up Level 4 [facility], [address] [place] [address], [place], [place], [address], [place] tel:[phone] [facility] Other spondylosis with radiculopathy, lumbar region Otilia Marin. [address] [place] [address], [id number], [place]. tel:[phone] MD_Follow Up Level 4 [facility], [address] [place] [address], [place], [place], [address], [place] tel:[phone] [facility] Other spondylosis with radiculopathy, lumbar region Beléna Tania. [address] [place] [address], [id number], [place]. tel:[phone] 5972 [facility], [address] [place] [address], [place], [place], [id number], [place] tel:[phone] [facility] No Information Freeholdcristhian LeesVivian. [address] [place] [address], [address], [place]. tel:[phone] 4232 [facility], [address] [place] [address], [place], [place], [id number], [place] tel:[phone] [facility] No Information [facility]. [address] [place] [address], [id number], [place]. tel:[phone] 4519 [facility], [address] [place] [address], [place], [place], [address], [place] tel:[phone] [facility] No Information Beth Stevens. [address] [place] [address], [place], [place], [id number], [place]. tel:[phone] 4978 [facility], [address] [place] [address], [place], [place], [address], [place] tel:[phone] [facility] No Information Otilia Marin. [address] [place] [address], [id number], [place]. tel:[phone] 8035 [facility], [address] [place] [address], [place], [place], [address], tel:[phone] [facility] No Information Arsalanrichardtammy Praveen. [address] [place] [address], [address] [place] [address], [place], [place], [id number], [place]. tel:[phone] MD_Follow Up Level 5 [facility], [address] [place] [address], [place], [place], [id number], [place] tel:[phone] [facility] No Information Otilia Marin. [address] [place] [address], [id number], . tel:[phone] Behavioral (Psych) 60 mins [facility], [address] [place] [address], [place], [place], [address], [place] tel:[phone] [facility] Spondylosis without myelopathy or radiculopathy, lumbosacral region Hermelinda Peña. [address] [place] [address], [id number], [place]. tel:[phone] 0467 [facility], [address] [place] [address], [place], [place], [address]3938, [place] tel:[phone] [facility] No Information [facility]. [address] [place] [address], [id number], [place]. tel:[phone] 4197 [facility], [address] [place] [address], [place], [place], 867189635, [place] tel:[phone] [facility] No Information Beth Stevens. [address] [place] [address], [address] [place] [address], [place], [place], [address]19180546, [place]. tel:[phone] 9430 [facility], [address] [place] [address], [place], [place], [address]327, [place] tel:[phone] [facility] No Information Tyler Rodney. [address] [place] [address], [place], [place], [id number], [place]. tel:[phone] 4449 [facility], [address] [place] [address], [place], [place], 8705[address]759, [place] tel:[phone] [facility] No Information [facility]. [address] [place] [address], [id number], [place]. tel:[phone] [facility], [address] [place] [address], [place], [place], 4101[address]689, [place] tel:[phone] [facility] No Information Tyler Rodney. [address] [place] [address], [place], [place], [id number], [place]. tel:[phone] MD_Follow Up Level 4 [facility], [address] [place] [address], [place], [place], [id number], [place] tel:[phone] [facility] Spondylosis without myelopathy or radiculopathy, lumbosacral region Tyler Rodney. [address] [place] [address], [place], [place], [id number], [place]. tel:[phone] [facility], [address] [place] [address], [place], [place], [id number], [place] tel:[phone] [facility] No Information Beth Rodney. [address] [place] [address], [place], [place], [id number], [place]. tel:[phone] 0622 [facility], [address] [place] [address], [place], [place], [address]40[address]23, [place] tel:[phone] [facility] No Information [facility]. [address] [place] [address], [id number], [place]. tel:[phone] [facility], [address] [place] [address], [place], [place], [id number], [place] tel:[phone] [facility] No Information Beth Rodney. [address] [place] [address], [id number], [place]. tel:[phone] [facility], [address] [place], [place] [address], [place], [place], [address], [place] tel:[phone] [facility] No Information [facility]. [address] [place] [address], [id number], [place]. tel:[phone] 6543 [facility], [address] [place] [address], [place], [place], [id number], [place] tel:[phone] [facility] No Information Beth Stevens. [address] [place] [address], [address] [place] [address], [place], [place], [address]293, [place]. tel:[phone] 3731 [facility], [address] [place] [address], [place], [place], [address]80[address]72, [place] tel:[phone] [facility] No Information [facility]. [address] [place] [address], [id number], [place]. tel:[phone] MD_Follow Up Level 3 [facility], [address] [place] [address], [place], [place], [address], [place] tel:[phone] [facility] Lumbosacral spondylosis without myelopathy Beth Stevens. [address] [place] [address], [place], [place], [address]793049, [place]. tel:[phone] MD_Follow Up Level 3 [facility], [address] [place] [address], [place], [place], [id number], [place] tel:[phone] [facility] Knee Pain (chief complaint) Enthesopathy of knee, unspecified Roque Garcia. [address] [place] [address], [address], [place]. tel:[phone] [facility], [address] [place] [address], [place], [place], 108808771, [place] tel:[phone] [facility] No Information Otoniel Wang. [address] [place] [address], [address] [place] [address], [place], [place], [id number], [place]. tel:[phone] [facility], [address] [place] [address], [place], [place], [id number], [place] tel:[phone] [facility] No Information [facility]. [address] [place] [address], [id number], [place]. tel:[phone] MD_Follow Up Level 3 [facility], [address] [place] [address], [place], [place], [address]34, [place] tel:[phone] [facility] Opioid type dependence, continuous useLumbosacral spondylosis without myelopathyComplete rupture of rotator cuff Tylersamson Stevens. [address] [place] [address], [place], [place], [address]35, [place]. tel:[phone] 4045 [facility], [address] [place] [address], [place], [place], [address]66[address]761, [place] tel:[phone] [facility] No Information Beth Stevens. [address] [place] [address], [place], [place], [address]12[address]496, [place]. tel:[phone] [facility], [address] [place] [address], [place], [place], [address]143030, [place] tel:[phone] [facility] No Information [facility]. [address] [place] [address], [id number], [place]. tel:[phone] MD_Follow Up Level 4 [facility], [address] [place] [address], [place], [place], 995[address]602, [place] tel:[phone] [facility] back pain (chief complaint)s houlder pain (chief complaint) No Information Del Avalos. [address] [place] [address], [id number], [place]. tel:[phone] MD_Follow Up Level 4 [facility], [address] [place] [address], [place], [place], [address]195[address]82, [place] tel:[phone] [facility] shoulder pain (chief complaint) Osteoarthrosis, localized, primary, involving shoulder regionOther specified disorders of bursae and tendons in shoulder regionMyalgia and myositis, unspecifiedComplete rupture of rotator cuff Babatunde Jauregui. [address] [place] [address], [address], [place]. tel:[phone] NP_Office Visit Level 4 [facility], [address] [place] [address], [place], [place], [id number], [place] tel:[phone] [facility] shoulder pain (chief complaint) Lumbosacral spondylosis without myelopathyOther specified disorders of bursae and tendons in shoulder regionBicipital tenosynovitisMyalgia and myositis, unspecified Babatunde Jauregui. [address] [place], [address], . tel:[phone] MD_Follow Up Level 4 [facility], [address] [place] [address], [place], [place], [id number], [place] tel:[phone] [facility] back pain (chief complaint)s houlder pain (chief complaint) No Information Mathis Angélica Sheri Avalos. [address] [place], [place], [id number], [place]. tel:[phone] 9964 [facility], [address] [place] [address], [place], [place], 657[address]275, [place] tel:[phone] [facility] No Information Beth Stevens. [address] [place] [address], [place], [place], [id number], [place]. tel:[phone] 2279 [facility], [address] [place] [address], [place], [place], 366060705, [place] tel:[phone] [facility] No Information [facility]. [address] [place] [address], [id number], [place]. tel:[phone] 5976 [facility], [address] [place] [address], [place], [place], [address]68114544, [place] tel:[phone] [facility] No Information Christianne Grimes. [address] [facility], [address], [place], [place], [id number], [place]. tel:[phone] 4455 [facility], [address] [place] [address], [place], [place], 515770495, [place] tel:[phone] [facility] No Information Beth Stevens. [address] [place] [address], [address] [place] [address], [place], [place], 894829567, [place]. tel:[phone] 5185 [facility], [address] [place], [place] [address], [place], [place], [id number], [place] tel:[phone] [facility] No Information [facility]. [address] [place] [address], [id number], . tel:[phone] MD_Follow Up Level 5 [facility], [address] [place], [place] [address], [place], [place], [address]596721, [place] tel:[phone] [facility] back pain (chief complaint) No Information Yoli Reshma. [address] [place] [address], [address], . tel:[phone] 7374 [facility], [address] [place] [address], [place], [place], 761568029, tel:[phone] [facility] back pain (chief complaint) Adjustment disorder with mixed anxiety and depressed mood Shiva Samano. [address] [place] [address], [address], [place]. tel:[phone] 3086 [facility], [address] [place], [place] [address], [place], [place], 126962083, [place] tel:[phone] [facility] No Information Beth Stevens. [address] [place] [address], [facility] Floor, [place], [place], [id number], [place]. tel:[phone] [facility], [address] [place], [place] [address], [place], [place], [address]455, [place] tel:[phone] [facility] No Information [facility]. [address] [place] [address], [id number], [place]. tel:[phone] NP_Office Visit Level 5 [facility], [address] [place], [place] [address], [place], [place], [id number], [place] tel:[phone] [facility] arm pain (chief complaint) Hypertension, UnspecifiedOpioid type dependence, continuous useTherapeutic Drug MonitoringSciatica Due To Displacement Of Lumbar DiscPostlaminectomy syndrome of thoracic regionLumbosacral spondylosis without myelopathySpinal Stenosis, Lumbar Region, With Neurogenic Claudication Robert Rodríguez. [address] [place] [address], [address] Floor, [place], [place], [address], [place]. tel:[phone] Family History Family Member Type Diagnosis Age [...] Covered constitution party ID Authoriza tion(s) Medicare [id number] Nunda Ostrander MCR Supplement Plan [id number] Social History Type Description Quantity Date Captured Comments Alcohol Use Details Unknown Caffeine Use Details Unknown Tobacco Use Status No Information Smoking Status No Information Sex Female Chief Complaint And Reason For Visit No Information History Of Present Illness Encounter Date Complaint History Of Prese nt Illness Knee Pain Instructions Date Instruction Additional Infor chris Ms. oWlf presents in followup. She continues to experience [...]
--- OUTSIDE RECORDS SUMMARY | 2025-01-27 11:39 | XMS_ITS | Data Portability ---
Author Organization [facility] Pain Managem ent, PAIN OFFICE Address [address],[facility] [address] [place] [address] Care Team Providers Care Oyster Culler Name Role Phone DANNY SHALA Referring Provider [phone] ANISHA RALPH Primary Care Provider Assessment Encounter [...] booked for the same. 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 [...] pain back to baseline.She is here for the dimock centert radiofrequency ablation of L4, L5 and [...] patch 2015 016 miguel [id number], [address] [facility] [place], [address], 6 11:36:11 Celebrex 200 mg capsule 2015 016 [id number], [address] [place], [address], 6 08:56:14 Patient TargetsNo targets recorded. Patient Instructions Encounter Date Encounter Id Patient Instructions Last Modified By Organization Details Last Modified Time 08/16/2015 [id number] She was advised against bed rest lasting longer than four days and to continue activities as tolerated. [email or web address] Not available 08/16/2015 13:04:51 09/01/2015 [id number] She was advised against bed rest lasting longer than four days and to continue activities as tolerated. [email or web address] Not available 09/01/2015 15:28:37 09/07/2015 [id number] She was advised against bed rest lasting longer than four days and to continue activities as tolerated. [email or web address] Not available 09/08/2015 14:18:24 09/13/2015 [id number] She was advised against bed rest lasting longer than four days and to continue activities as tolerated. [email or web address] Not available 09/13/2015 14:59:45 09/23/2015 [id number] She was advised against bed rest lasting longer than four days and to continue activities as tolerated. [email or web address] Not available 09/27/2015 10:03:45 Reason for Referral None Reported. Results Created Date Observation Date Name Description Value Unit Range Abnormal Flag Note LastModifiedBy Organization Detail LastModifiedTime 08/22/19 16 08/22/2015 x-ray , tony lissette, 2 views No observ ation record ed. [facility] Diagn[facility] Imaging Dept [address] [place] [address], [address], 09/01/2015 15:28:37 Result Notes None recorded. Problems Name Problem SNOMED Code Status Onset Date Resolution Date Notes Provider Name and Address Organization Details Recorded Time Enthesopathy of hip region 66097331 Active Johnny henning MD [address] , [address], [facility] [place], [address], [place] [facility] 6 11:36:10 Lumbosacral spondylosis without myelopathy 55712698 Active Johnny henning MD [address] , [address], [facility] [place], [address], [place] [facility] 6 11:36:10 Lumbar post-laminecto my syndrome 556655965 Jillian henning MD [address] , [address], [facility] [place], [address], [place] [facility] 6 11:36:10 Lumbosacral radiculitis [id number] Jillian henning MD [address] , [address], [facility] [place], [address], [place] [facility] 6 11:36:10 Disorder of bursa of shoulder region 56005568 Jillian henning MD [address] , [address], [facility] [place], [address], [place] [facility] 6 11:36:11 Muscle pain 82716513 Jillian henning MD [address] , [address], [facility] [place], [address], [place] [facility] 6 11:36:10 Problem Notes None recorded. Procedures Surgical History Date Name Laterality Status Provider Name and Address Organization Details Recorded Time 09/13/19 16 Radiofrequency of Lumbar/Sacral medial branches supplying the facets under fluoroscopic guidance completed Johnny Montanez MD [address] , [address], [place], [address], [place] [facility] 09/14/2015 14:17:33 09/07/19 16 Lumbar median branch block under fluroscopic guidance completed Johnny Montanez MD [address] , [address], [place], [address], [place] [facility] 09/08/2015 14:23:25 08/16/19 16 Fluoroscopic Guided Lumbar Facet Steroid Injections of levels completed Johnny Montanez MD [address] , [address], [place], [address], [place] [facility] 08/16/2015 13:09:50 03/08/20 15 Fluoroscopic Guided Lumbar Facet Steroid Injections of levels completed Johnny Montanez MD [address] , [address], [place], [address], [place] [facility] 03/09/2015 09:22:44 [...] % 182 mm[Hg] 72 mm[Hg] Anisha Mendieta [place] - [facility] 6 10:23:34 Date Recorded Oxygen saturation Oxygen saturation in Arterial blood by Pulse oximetry Heart rate Systolic blood pressure Diastolic blood pressure Provider Name and Address Organization Details Last Updated DateTime 6 97 % 97 % 76 /min 118 mm[Hg] 58 mm[Hg] Anisha Mendieta [place] [facility] 6 15:00:38 Date Recorded Oxygen saturation Oxygen saturation in Arterial blood by Pulse oximetry Heart rate Systolic blood pressure Diastolic blood pressure Provider Name and Address Organization Details Last Updated DateTime 6 99 % 99 % 65 /min 140 mm[Hg] 88 mm[Hg] Anisha Mendieta [place] [facility] 6 09:43:17 Date Recorded Oxygen saturation Oxygen saturation in Arterial blood by Pulse oximetry Heart rate Systolic blood pressure Diastolic blood pressure Provider Name and Address Organization Details Last Updated DateTime 6 98 % 98 % 67 /min 157 mm[Hg] 45 mm[Hg] Anisha Mendieta [place] [facility] 6 10:18:19 Date Recorded [...] Or Recreational Drugs Have You Used? No [id number] Information not available 05/13/2020 Education 12 Information no t available 03/01/2015 Live Alone Or With Others? Alone [email or web address] Information not available 03/01/2015 Marital Status [email or web address] Informatio n not available 03/01/2015 How Many Years Have You Smoked Tobacco? 20 [id number] Information not available 05/13/2020 Sex: Unknown Functional Status Question Answer Note LastModified by Organization D etails LastModified Time What is your level of alcohol consumption? Moderate Wine [id number] Information not available 05/13/2020 Are you currently employed? No [id number] Information not available 05/13/2020 Mental Status None [...] SNOMED-CT Code Diagnosis ICD10 Code Diagnosis Note [id number] MD RONAN Treviño PAIN OFFICE [address] [facility] [address] [facility] [place] [address] 03/01/2015 10:09:29 03/02/2015 11:29:26 Lumbar post-laminectomy syndrome 335340159 Lumbosacra l radiculitis 32548465 Lumbosacra l spondylosis without myelopathy 51023798 Enthesopat hy of hip region 17920171 82580 Johnny Montanez MD [facility] PA[facility] [address] [facility] [address] 03/08/2015 14:21:23 03/09/2015 09:25:14 Lumbosacral spondylosis without myelopathy 11706466 Enthesopat hy of hip region 33281548 Lumbosacra l radiculitis 78638442 Lumbar post-laminectomy syndrome 777206547 31883 Johnny Montanez MD [facility] PAIN OFFICE [address] [facility] [place] [address] 04/11/2015 14:50:34 04/12/2015 09:13:56 Lumbosacral spondylosis without myelopathy 86218033 Enthesopat hy of hip region 05249255 Lumbosacra l radiculitis 07992781 Lumbar post-laminectomy syndrome 152558139 77401 Johnny Montanez MD PAIN OFFICE [address] [facility] [place] [address] 08/16/2015 10:11:47 08/16/2015 14:46:00 Lumbosacral spondylosis without myelopathy 17507739 M47.817 Enthesopat hy of hip region 73825166 M76.9 Lumbosacra l radiculitis 22235041 M54.17 Lumbar post-laminectomy syndrome 950819415 M96.1 Disorder o f bursa of shoulder region 72271000 M25.812 67157 Johnny Montanez MD PAIN OFFICE [address] [facility] [place] [place] [address] 09/01/2015 14:03:53 09/01/2015 15:37:11 Lumbosacral spondylosis without myelopathy 73448717 M47.817 Enthesopat hy of hip region 17366732 M76.9 Disorder o f bursa of shoulder region 81497889 M25.812 Lumbosacra l radiculitis 36794389 M54.17 Lumbar post-laminectomy syndrome 002810137 M96.1 [id number] Johnny Montanez MD PAIN OFFICE [address] [address] 09/07/2015 09:36:32 09/08/2015 14:24:03 Lumbosacral spondylosis without myelopathy 35576654 M47.817 Enthesopat hy of hip region 73525273 M70.61 Disorder o f bursa of shoulder region 17995275 M25.812 Lumbosacra l radiculitis 51657698 M54.17 Lumbar post-laminectomy syndrome 404572452 M96.1 [id number] Johnny Montanez MD [facility] PAIN OFFICE [address] [facility] [place] [place] [address] 09/13/2015 10:08:37 09/13/2015 15:13:45 Lumbosacral spondylosis without myelopathy 02349870 M47.817 Lumbar post-laminectomy syndrome 131464494 M96.1 Enthesopat hy of hip region 15023034 M70.61 Disorder o f bursa of shoulder region 66144426 M25.812 Lumbosacra l radiculitis 56113456 M54.17 43455 Jhonny Montanez MD PAIN OFFICE [address] [place] [address] 09/23/2015 08:47:47 09/27/2015 11:36:33 Lumbosacral spondylosis without myelopathy 20289463 M47.817 Lumbar post-laminectomy syndrome 634461740 M96.1 Lumbosacra l radiculitis 89240328 M54.17 Muscle pain 82218390 M79 .1 Enthesopat hy of hip region 27875821 M70.61 Disorder o f bursa of shoulder region 24082831 M25.812 Health Concerns Section Related Observation LastModified by Organization Detai ls LastModified Time None Recorded Concern Status LastModified by Organization Details LastModified Time None Recorded Advance Directives Directive None Recorded Payers Insurance Date Sequence Insurance Name Policy Number Policy Blanco Covered Member ID Blanco Member ID Guarantor Name 04/11/2015 1 ROSITA IBANEZA - MEDICARE-[address] [facility] [employer]ARD (MEDICARE) Brenda Wolf [id number] Brenda Wolf 09/01/2015 1 [place] B-[place]: [facility] Brenda Wolf [id number] Brenda Wolf 09/27/2015 2 [facility] (MEDICARE SUPPLEMENT) Brenda Wolf [id number] Brendakarina Wolf Notes Date Note Type [...] her left shoulder. Johnny Montanez MD [address] [facility] , [address], [place], [address], [facility] Pain Management 08/18/2015 09:24:14 09/01/2015 text/html She is here for a follow up after a left shoulder X-ray. 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 She states she has seen a PA at [facility] and she recommended a total knee [...] an issue presently. Johnny Montanez MD [address] [facility] , [address], [place], [address], [facility] Pain Management 09/02/2015 11:09:45 09/07/2015 text/html She is here for a trial of right median branch block under fluoroscopic guidance at L4, L5and S1 medial branches. Johnny Montanez MD [address] [facility] , [address], [place], [address], [facility] - Pain Management 09/08/2015 15:45:44 09/13/2015 [...] with the RF. Johnny Montanez MD [address] [facility] , [address], [place], [address], [facility] Pain Management 09/14/2015 14:17:41 09/23/2015 text/html She is here for a follow up. She states she is noticing pain in her muscles in the low back and she had difficulty sleeping due to pain and muscle spasms since the radiofrequency ablation. She has been applying ice. She has seen Tamika at [facility] and has started synvisc injections for her [...] or bowel incontinence. Johnny Montanez MD [address] [facility] , [address], [place], [address], [facility] Pain Management 10/03/2015 08:52:43 OBGyn Episode No OBEpisode recorded.
--- OUTSIDE RECORDS SUMMARY | 2025-01-27 11:39 | XMS_ITS | Patient Health Record ---
Author Organization [facility] Address [address] [facility] [place] [address] Care Team Providers Care Nursing Care Attendant Name Role Phone Allison Ham Primary Care Provider Nyla Sharma Unavailable [phone] Allergies Allergen (clinical drug ingredient) Drug/Non Drug Allergy documented on EMR Reaction Allergy Type Onset Date Status Adhesive - Paper Tap e (uncoded) Unknown Allergy Active Grass Mix Pollens Allergen Ext Unknown Drug Allergy Active Cats Unknown Allergy Active Dust Mites Unknown Allergy Active Reason For Referral No Information Medications Medication SIG (Take, Route, Frequency, Duration) Notes Start Date End Date Status Physical Therapy . . . 2-3x/week; Duration: 3-4 weeks 06/28/2020 Active Feldene 20 MG 1 capsule with food Orally Once a day; Duration: 30 day(s) 07/05/2020 Active Physical Therapy . . . 2-3x/week; Duration: 3-4 weeks 05/25/2020 Active Medrol 4 MG as directed Orally 06/28/2020 Active Ipratropium [place] 0.06 % USE 1 SPRAY IN EACH NOSTRIL TWICE A DAY Nasal; Duration: 41 Not-Taking amLODIPine Besylate 10 MG 1 tablet Orall y Once a day Active oxyCODONE HCl as needed Active Physical Therapy . . . 2-3x/week; Duration: 3-4 weeks 01/06/2020 Active Losartan Potassium 100 MG 1 tablet Orall y Once a day Active Atorvastatin Calcium 10 MG 1 tablet Orally Once a day Active Zoloft 50 MG 1 tablet Orally Once a day Active Cephalexin 500 MG TAKE ONE CAPSULE BY MOUTH 3 TIMES A DAY Oral; Duration: 10 Not-Taking traZODone HCl 50 MG 1 tablet at bedtime Orally Once a day; Duration: 30 day(s) Active fentaNYL Not-Taking traMADol HCl Not-Serge ing Nasal [place] Active Meloxicam Not-Taking Vitamin D 400 UNIT 1 capsule Orally Onc e a day; Duration: 30 day(s) Active Pantoprazole Sodium 40 MG 1 tablet Orall y Once a day Active Gabapentin Not-Takin g Metoprolol & Diet Manage Prod Not-Taking Vitamin B12 100 MCG 1 tablet Orally Once a day; Duration: 30 day(s) Not-Taking Exforge Not-Taking Nightsplint . . . AFO - L1930; Duration: . Not-Taking fentaNYL Not-Taking Social History Tobacco Use: Social History Observation Description Date Details (start date - stop date) Never Smoker NA - NA Tobacco use other than smoking: Question Answer Notes Are you an other tobacco user? No Tobacco Control (Standard) Question Answer Notes Tobacco use: Nonsmoker Additional Findings: Tobacco non-user Current no nsmoker Problems Problem Type SNOMED Code ICD Code Onset Dates Problem Status W/U Status Risk Notes Problem Localized, primary osteoarthritis of the ankle and/or foot (078716165) 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 Plan Of Treatment Pending Test Test Name Order Date MRI : Foot, left 06/28/2020 X ray : Foot, left 3V 05/25/2020 X ray : Foot, right 3V 07/19/2017 X ray : Foot, right 3V 06/19/2019 [id number]-[id number] NAIL, 6 OR MORE 03/07/2018 77926-Okjcxveh Plate 06/25/2011 72657- Debride <25 sq cm 07/11/2011 39007,T6435-VRA TENDON SHEATH/LIGAMENT 1 08/19/2018 53431,E5930-JBI TENDON SHEATH/LIGAMENT 0 03/07/2018 77490,H9585-WUQ TENDON SHEATH/LIGAMENT 1 53236,A3480-JQS TENDON SHEATH/LIGAMENT 0 01/06/2020 65137,Q4198-ZXL TENDON SHEATH/LIGAMENT 0 04/12/2020 54348- Unna Boot 06/19/2019 X ray : Ankle, right 3V 06/19/2019 Next Appt Details Provider Name:Nyla wang, 04/09/2025 10:30:00 AM, [address] [place] [address], [phone], Insurance Providers Payer Name Payer Address Payer Phone Subscriber Number Group Number Insured Name Patient Relationship to Insured Coverage Start Date Coverage End Date Medicare National Govt [employer] [address] [place] [address] [id number] Brenda Wolf Self - patient is the insured 6 [employer] [address] [place] [phone] [id number] Brenda Wolf Self - patient is the insured Medical (General) History Medical History History ICD Code anxiety Arthritis back, hip, knee pain hypertension osteoporosis measles joint implants/screws asthma CAD (Cholesterol) Depression A fib Surgical History Surgery Date(Month/Year) neck surgery 1989 back surgery 1992 knee replacement 2007 carpal tunnel surgery 05/2017 spinal stenosis surgery 11/26/2017 Hospitalization History Reason Date(Month/Year) right foot hurting diagnosed plantar 07/17/2017 [facility]- jaswinder,CAT scan, yaz, 06/15/19- 1 08/19/18 [facility]- Spinal sten osis Sx 11/26/2017
--- OUTSIDE RECORDS SUMMARY | 2025-01-27 11:39 | XMS_ITS | Patient Health Record ---
Author Organization [facility] Address [address] [place] [address] Care Team Providers Care Governor Assembler Hydraulic Name Role Phone Ling Middleton DNP Primary [...] a day for 30 day(s) Active Ipratropium [place] 0.06 % 2 sprays in e ach nostril Nasally Three times a day for 4 day(s) Active Amoxicillin 500 MG 1 capsule Orally NEEDED FOR DENTIST Active Calcium 500 MG 1 tablet Orally Once a day Active Tramadol & Dietary Manage Prod Active Vitamin D3 Ultra Potency 12241 UNIT 1 tablet Orally as directed Active [...] Problem Status W/U Status Risk Notes Problem 39297154 Rectal bleeding (K62.5) Active confirmed Problem 170364732 Gastro-esophagea l reflux disease without esophagitis (K21.9) Active confirmed Problem 58103706 Cough (R05) Active confirmed Problem 607757807 Urinary incontinence, unspecified type (R32) Active confirmed Plan Of Treatment Pending Test Test Name Order Date XR GI SERIES 07/14/2015 Insurance Providers Payer Name Payer Address Payer Phone Subscriber Number Group Number Insured Name Patient Relationship to Insured Coverage Start Date Coverage End Date MEDICARE OF [place] [address] [place] [address] [phone] [id number] KAY COLLINS Self - patient is the insured [employer] [address] [place] [phone] [id number] KAY COLLINS Self - patient is the insured Medical (General) History Medical History History ICD Code EGD/colonoscopy 01/03/2006. No evidence of Morse's esophagus. Hyperplastic colon polyp. Seasonal allergic rhinitis hypertension hypercholesterolemia scoliosis arthritis depression Surgical History Surgery Date(Month/Year) Vocal cord polyp 2006 Multiple back and neck surgeries rotator cuff surgery both knee replacement left
--- NOTE | 2025-01-27 12:51 | AM.OFFVISNUR ---
Intake Visit Reasons: Evenity #7 Allergies bee pollen Allergy (Unknown, Verified 01/21/25 09:19) Unknown house dust mite Allergy (Unknown, Verified 01/21/25 09:19) Unknown adhesive tape Adverse Reaction (Intermediate, Verified 01/21/25 09:19) Rash Office Meds romosozumab-aqqg 210 mg/2.34 mL(105 mg/1.17 mL x2)subcutaneous syringe Performing Provider: Rommel Lopez MD Performing Location: [facility] [place]ology Administered by: Rosalinda Gimenez RN on 01/27/25 11:00 Dose Route Admin Location Dispensed Lot Number Expiration Date NDC Bobbin Winder 210 mg subcut bilateral upper arms 2.34 mL [id number] 02/25/27 62042-568-42 [employer] Total Dispensed Waste 2.34 mL 0 % Comments: Patient tolerated injection well. Denies any problems with previous injections. Assessment & Plan Assessment & Plan Orders: Orders AMB Romosozumab Injection Patient Supplied Today M81.0 - Age-related osteoporosis without current pathological fracture Coding
== END 2025-01-27 11:08 | disposition home or self-care (01) ==
LOC: HO.ENCR 10:56
PROVIDERS: PCP Physician Assistant; Visit Provider Internal Medicine Endocrinology, Diabetes & Metabolism
DX: M81.0 Age-related osteoporosis without current pathological fracture (principal)

== ENCOUNTER → 2025-01-27 10:55 | Outpatient (BNVA) | payer MEDICARE, OTHER, SELFPAY | PROVIDERS: PCP Physician Assistant; Visit Provider Internal Medicine Endocrinology, Diabetes & Metabolism | DX: M81.0 Age-related osteoporosis without current pathological fracture (principal); Z79.899 Other long term (current) drug therapy | CPT/HCPCS: 96372; J3111 ==

== ENCOUNTER 2025-02-04 11:25 | Outpatient (AMB) | payer MEDICARE, OTHER, SELFPAY ==
--- OUTSIDE RECORDS SUMMARY | 2017-02-20 06:52 | XMS_ITS | Continuity of Care Document ---
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 [address] [place] [address], [address] [place] [address], [place], [place], [id number], [place]. tel:[phone] [facility], [address] [place], [place] [address], [place], [place], [id number], tel:[phone] [facility] Spondyls w/o myelopathy or radiculopathy, lumbosacr region Andover Rodney. [address] [place] [address], [place], [place], [id number], [place]. tel:[phone] [facility], [address] [place] [address], [place], [id number], [place] tel:[phone] [facility] No Information [facility]. [address] [place] [address], [id number], [place]. tel:[phone] [facility], [address] [place] [address], [place], [place], [id number], [place] tel:[phone] [facility] Spondyls w/o myelopathy or radiculopathy, lumbosacr region Andover Rodney. [address] [place] [address], [place], [place], [id number], [place]. tel:[phone] [facility], [address] [place] [address], [place], [place], [id number], [place] tel:[phone] [facility] No Information Surgery [facility]. [address] [place] [address], [id number], [place]. tel:[phone] MD_Follow Up Level 4 [facility], [address] [place] [address], [place], [place], [id number], [place] tel:[phone] [facility] Spondylosis without myelopathy or radiculopathy, lumbosacral regionOther spondylosis with radiculopathy, lumbar region Yoli Justice. [address] [place] [address], [address], [place]. tel:[phone] [facility], [address] [place] [address], [place], [place], [id number], [place] tel:[phone] [facility] Spondylosis w/o myelopathy or radiculopathy, thoracic region Beth Rodney. [address] [place] [address], [place], [place], [id number], [place]. tel:[phone] [facility], [address] [place] [address], [place], [place], [id number], [place] tel:[phone] [facility] No Information [facility]. [address] [place] [address], [id number], [place]. tel:[phone] [facility], [address] [place] [address], [place], [place], [id number], [place] tel:[phone] [facility] Spondylosis w/o myelopathy or radiculopathy, cervical region Blanca Obregon. [address] [place] [address], [place], [place], [id number], [place]. tel:[phone] [facility], [address] [place] [address], [place], [place], [id number], [place] tel:[phone] [facility] No Information [facility]. [address] [place] [address], [id number], [place]. tel:[phone] [facility], [address] [place] [address], [place], [place], [id number], [place] tel:[phone] [facility] Spondylosis w/o myelopathy or radiculopathy, cervical region Beth Stevens. [address] [place] [address], [place], [place], [id number], [place]. tel:[phone] [facility], [address] [place] [address], [place], [place], [id number], [place] tel:[phone] [facility] No Information [facility]. [address] [place] [address], [id number], [place]. tel:[phone] [facility], [address] [place] [address], [place], [place], [id number], [place] tel:[phone] [facility] Cervical disc disorder w radiculopathy, unsp cervical region Blanca Obregon. [address] [place] [address], [place], [place], [id number], [place]. tel:[phone] [facility], [address] [place] [address], [place], [place], [id number], [place] tel:[phone] [facility] No Information [facility]. [address] [place] [address], [id number], [place]. tel:[phone] MD_Follow Up Level 4 [facility], [address] [place], [place] [address], [place], [place], [id number], [place] tel:[phone] [facility] Postlaminectomy syndrome, not elsewhere classified Yoli Reshma. [address] [place] [address], [address], [place]. tel:[phone] MD_Follow Up Level 4 [facility], [address] [place], [place] [address], [place], [place], [id number], [place] tel:[phone] [facility] Spondyls w/o myelopathy or radiculopathy, lumbosacr region Otilia Marin. [address] [place] [address], [id number], [place]. tel:[phone] [facility], [address] [place] [address], [place], [place], [id number], [place] tel:[phone] [facility] Cervical disc disorder w radiculopathy, unsp cervical region Beth Stevens. [address] [place] [address], [facility] Floor, [place], [place], [id number], [place]. tel:[phone] [facility], [address] [place], [place] [address], [place], [place], [id number], [place] tel:[phone] [facility] No Information [facility]. [address] [place] [address], [id number], [place]. tel:[phone] MD_Follow Up Level 4 [facility], [address] [place], [place] [address], [place], [place], [id number], [place] tel:[phone] [facility] Spondyls w/o myelopathy or radiculopathy, lumbosacr region Broderick Nye. [address] [place] [address], [id number], [place]. tel:[phone] [facility], [address] [place], [place] [address], [place], [place], [id number], [place] tel:[phone] [facility] Cervical disc disorder w radiculopathy, unsp cervical region Beth Stevens. [address] [place] [address], [place], [place], [id number], [place]. tel:[phone] [facility], [address] [place] [address], [place], [place], [id number], [place] tel:[phone] [facility] No Information [facility]. [address] [place] [address], [id number], [place]. tel:[phone] MD_Follow Up Level 4 [facility], [address] [place] [address], [place], [place], [id number], [place] tel:[phone] [facility] No Information Yoli Justice. [address] [place] [address], [address], [place]. tel:[phone] [facility], [address] [place] [address], [place], [place], [id number], [place] tel:[phone] [facility] No Information Beth Stevens. [address] [place] [address], [place], [place], [id number], [place]. tel:[phone] [facility], [address] [place] [address], [place], [place], [id number], [place] tel:[phone] [facility] No Information [facility]. [address] [place] [address], [id number], [place]. tel:[phone] MD_Follow Up Level 4 [facility], [address] [place] [address], [place], [place], [id number], [place] tel:[phone] [facility] Spondylosis without myelopathy or radiculopathy, lumbosacral region Beth Stevens. [address] [place] [address], [place], [place], [id number], [place]. tel:[phone] [facility], [address] [place] [address], [place], [place], [id number], [place] tel:[phone] [facility] Postlaminectomy syndrome, not elsewhere classified Blanca Obregon. [address] [place] [address], [place], [place], [id number], [place]. tel:[phone] [facility], [address] [place] [address], [place], [place], [id number], [place] tel:[phone] [facility] No Information Surgery [facility]. [address] [place] [address], [id number], [place]. tel:[phone] MD_Follow Up Level 4 [facility], [address] [place] [address], [place], [place], [id number], [place] tel:[phone] [facility] Other spondylosis with radiculopathy, lumbar region Otilia Marin. [address] [place] [address], [id number], [place]. tel:[phone] MD_Follow Up Level 4 [facility], [address] [place] [address], [place], [place], [id number], [place] tel:[phone] [facility] Other spondylosis with radiculopathy, lumbar region Beléna Tania. [address] [place] [address], [id number], [place]. tel:[phone] [facility], [address] [place] [address], [place], [place], [id number], [place] tel:[phone] [facility] No Information Roycristhian LeesVivian. [address] [place] [address], [address], [place]. tel:[phone] [facility], [address] [place] [address], [place], [place], [id number], [place] tel:[phone] [facility] No Information [facility]. [address] [place] [address], [id number], [place]. tel:[phone] [facility], [address] [place] [address], [place], [place], [id number], [place] tel:[phone] [facility] No Information Beth Stevens. [address] [place] [address], [place], [place], [id number], [place]. tel:[phone] [facility], [address] [place] [address], [place], [place], [id number], [place] tel:[phone] [facility] No Information Otilia Marin. [address] [place] [address], [id number], [place]. tel:[phone] [facility], [address] [place] [address], [place], [place], [id number], tel:[phone] [facility] No Information Arsalanrichardtammy Praveen. [address] [place] [address], [address] [place] [address], [place], [place], [id number], [place]. tel:[phone] MD_Follow Up Level 5 [facility], [address] [place] [address], [place], [place], [id number], [place] tel:[phone] [facility] No Information Otilia Marin. [address] [place] [address], [id number], . tel:[phone] Behavioral (Psych) 60 mins [facility], [address] [place] [address], [place], [place], [id number], [place] tel:[phone] [facility] Spondylosis without myelopathy or radiculopathy, lumbosacral region Hermelinda Peña. [address] [place] [address], [id number], [place]. tel:[phone] [facility], [address] [place] [address], [place], [place], [id number], [place] tel:[phone] [facility] No Information [facility]. [address] [place] [address], [id number], [place]. tel:[phone] [facility], [address] [place] [address], [place], [place], [id number], [place] tel:[phone] [facility] No Information Beth Stevens. [address] [place] [address], [address] [place] [address], [place], [place], [id number], [place]. tel:[phone] [facility], [address] [place] [address], [place], [place], [id number], [place] tel:[phone] [facility] No Information Andover Rodney. [address] [place] [address], [place], [place], [id number], [place]. tel:[phone] [facility], [address] [place] [address], [place], [place], [id number], [place] tel:[phone] [facility] No Information [facility]. [address] [place] [address], [id number], [place]. tel:[phone] [facility], [address] [place] [address], [place], [place], [id number], [place] tel:[phone] [facility] No Information Andover Rodney. [address] [place] [address], [place], [place], [id number], [place]. tel:[phone] MD_Follow Up Level 4 [facility], [address] [place] [address], [place], [place], [id number], [place] tel:[phone] [facility] Spondylosis without myelopathy or radiculopathy, lumbosacral region Beth Rodney. [address] [place] [address], [place], [place], [id number], [place]. tel:[phone] [facility], [address] [place] [address], [place], [place], [id number], [place] tel:[phone] [facility] No Information Beth Rodney. [address] [place] [address], [place], [place], [id number], [place]. tel:[phone] [facility], [address] [place] [address], [place], [place], [id number], [place] tel:[phone] [facility] No Information [facility]. [address] [place] [address], [id number], [place]. tel:[phone] [facility], [address] [place] [address], [place], [place], [id number], [place] tel:[phone] [facility] No Information Andover Rodney. [address] [place] [address], [id number], [place]. tel:[phone] [facility], [address] [place], [place] [address], [place], [place], [id number], [place] tel:[phone] [facility] No Information [facility]. [address] [place] [address], [id number], [place]. tel:[phone] [facility], [address] [place] [address], [place], [place], [id number], [place] tel:[phone] [facility] No Information Beth Stevens. [address] [place] [address], [address] [place] [address], [place], [place], [id number], [place]. tel:[phone] [facility], [address] [place] [address], [place], [place], [id number], [place] tel:[phone] [facility] No Information [facility]. [address] [place] [address], [id number], [place]. tel:[phone] MD_Follow Up Level 3 [facility], [address] [place] [address], [place], [place], [id number], [place] tel:[phone] [facility] Lumbosacral spondylosis without myelopathy Beth Stevens. [address] [place] [address], [place], [place], [id number], [place]. tel:[phone] MD_Follow Up Level 3 [facility], [address] [place] [address], [place], [place], [id number], [place] tel:[phone] [facility] Knee Pain (chief complaint) Enthesopathy of knee, unspecified Roque Garcia. [address] [place] [address], [address], [place]. tel:[phone] [facility], [address] [place] [address], [place], [place], [id number], [place] tel:[phone] [facility] No Information Otoniel Wang. [address] [place] [address], [address] [place] [address], [place], [place], [id number], [place]. tel:[phone] [facility], [address] [place] [address], [place], [place], [id number], [place] tel:[phone] [facility] No Information [facility]. [address] [place] [address], [id number], [place]. tel:[phone] MD_Follow Up Level 3 [facility], [address] [place] [address], [place], [place], [id number], [place] tel:[phone] [facility] Opioid type dependence, continuous useLumbosacral spondylosis without myelopathyComplete rupture of rotator cuff Andoversamson Stevens. [address] [place] [address], [place], [place], [id number], [place]. tel:[phone] [facility], [address] [place] [address], [place], [place], [id number], [place] tel:[phone] [facility] No Information Beth Stevens. [address] [place] [address], [place], [place], [id number], [place]. tel:[phone] [facility], [address] [place] [address], [place], [place], [id number], [place] tel:[phone] [facility] No Information [facility]. [address] [place] [address], [id number], [place]. tel:[phone] MD_Follow Up Level 4 [facility], [address] [place] [address], [place], [place], [id number], [place] tel:[phone] [facility] back pain (chief complaint)s [place]oulder pain (chief complaint) No Information Del Avalos. [address] [place] [address], [id number], [place]. tel:[phone] MD_Follow Up Level 4 [facility], [address] [place] [address], [place], [place], [id number], [place] tel:[phone] [facility] shoulder pain (chief complaint) Osteoarthrosis, localized, primary, involving shoulder regionOther specified disorders of bursae and tendons in shoulder regionMyalgia and myositis, unspecifiedComplete rupture of rotator cuff Babatunde Jauregui. [address] [place] [address], [address], [place]. tel:[phone] NP_Office Visit Level 4 [facility], [address] [place] [address], [place], [place], [id number], [place] tel:[phone] [facility] shoulder pain (chief complaint) Lumbosacral spondylosis without myelopathyOther specified disorders of bursae and tendons in shoulder regionBicipital tenosynovitisMyalgia and myositis, unspecified Babatunde Jauregui. [address] [place], [address], . tel:[phone] MD_Follow Up Level 4 [facility], [address] [place] [address], [place], [place], [id number], [place] tel:[phone] [facility] back pain (chief complaint)s [place]oulder pain (chief complaint) No Information Mathis Angélica Sheri Avalos. [address] [place], [place], [id number], [place]. tel:[phone] [facility], [address] [place] [address], [place], [place], [id number], [place] tel:[phone] [facility] No Information Beth Stevens. [address] [place] [address], [place], [place], [id number], [place]. tel:[phone] [facility], [address] [place] [address], [place], [place], [id number], [place] tel:[phone] [facility] No Information [facility]. [address] [place] [address], [id number], [place]. tel:[phone] [facility], [address] [place] [address], [place], [place], [id number], [place] tel:[phone] [facility] No Information Christianne Grimes. [address] [facility], [address], [place], [place], [id number], [place]. tel:[phone] [facility], [address] [place] [address], [place], [place], [id number], [place] tel:[phone] [facility] No Information Beth Stevens. [address] [place] [address], [address] [place] [address], [place], [place], [id number], [place]. tel:[phone] [facility], [address] [place], [place] [address], [place], [place], [id number], [place] tel:[phone] [facility] No Information [facility]. [address] [place] [address], [id number], . tel:[phone] MD_Follow Up Level 5 [facility], [address] [place], [place] [address], [place], [place], [id number], [place] tel:[phone] [facility] back pain (chief complaint) No Information Yoli Reshma. [address] [place] [address], [address], . tel:[phone] [facility], [address] [place] [address], [place], [place], [id number], tel:[phone] [facility] back pain (chief complaint) Adjustment disorder with mixed anxiety and depressed mood Shiva Samano. [address] [place] [address], [address], [place]. tel:[phone] [facility], [address] [place], [place] [address], [place], [place], [id number], [place] tel:[phone] [facility] No Information Beth Stevens. [address] [place] [address], [facility], [place], [place], [id number], [place]. tel:[phone] [facility], [address] [place], [place] [address], [place], [id number], [place] tel:[phone] [facility] No Information [facility]. [address] [place] [address], [id number], [place]. tel:[phone] NP_Office Visit Level 5 [facility], [address] [place], [place] [address], [place], [id number], [place] tel:[phone] [facility] arm pain (chief complaint) Hypertension, UnspecifiedOpioid type dependence, continuous useTherapeutic Drug MonitoringSciatica Due To Displacement Of Lumbar DiscPostlaminectomy syndrome of thoracic regionLumbosacral spondylosis without myelopathySpinal Stenosis, Lumbar Region, With Neurogenic Claudication Robert Rodríguez. [address] [place] [address], [address] Floor, [place], [place], [id number], [place]. tel:[phone] Family History Family Member Type Diagnosis Age [...] Covered green party ID Authoriza tion(s) Medicare [id number] [facility] MCR Supplement Plan [id number] Social History Type Description Quantity Date Captured [...]
[2025-02-04 11:28] VITALS: BP 160/60; PULSE 84; TEMP 36.7; O2SAT 95; BMI 38.3
--- NOTE | 2025-02-04 11:28 | AM.OFFWIN_ITS ---
Intake Vital Signs 02/04/25 11:28 Height 4 ft 10 in Weight 183 lb 4 oz BMI 38.3 BP 160/60 H Blood Pressure Location Rt brachial Position Sitting Pulse 84 Pulse Source Pulse Oximeter Temp 98.0 F Temp Source Oral Pulse Oximetry (%) 95 Oxygen Delivery Method Room Air Intake Visit Reasons: PE Gout in LT ankle? Intake Note: Patient present with a painful ankle times 2 days and swollen times 1 day Patient Tobacco Use Status: Former Tobacco user Is last menstrual period known: No Post menopausal: Yes Patient : No Allergies bee pollen Allergy (Unknown, Verified 02/04/25 11:35) Unknown house dust mite Allergy (Unknown, Verified 02/04/25 11:35) Unknown adhesive tape Adverse Reaction (Intermediate, Verified 02/04/25 11:35) Rash Do you need a note to return to daycare/school/sports/work: No HPI HPI Comments History of Present Illness Details 89 y/o Female patient who presents to [facility] walk in clinic with c/o Left Ankle swelling and pain for 2 days. Pt believes she might have Gout, because she had similar condition on the right knee and was told it was Gout. [facility] Medical History Generalized anxiety disorder Insomnia Major depression, recurrent, chronic Arthritis High blood cholesterol COPD (chronic obstructive pulmonary disease) Urge incontinence Joint pain Chronic back pain HTN (hypertension) Bleeding hemorrhoid Back pain with history of spinal surgery Surgical History History of back surgery History of surgery Family History Father Thrombosis Mother Diabetes Heart rate problem Social History (Updated 01/21/25 @ 13:46 by Siomara Abebe CMA) Household Members: None Housing: Apartment Do you presently have visiting nurse or other home services: Yes ([employer] for housekeeping 2 times per week) Alcohol intake: current Alcohol intake frequency: does not drink Patient Tobacco Use Status: Former Tobacco user Tobacco use type: Cigarette Cigarettes Per Day: 15 Years Smoked: 10 e-Cigarette/Vaping Use: Never Used Second Hand Smoke Exposure: No Patient : No service: No Current occupational status: retired Cognitive needs: No Hearing needs: Yes (hearing aids) Vision needs: No Review of Systems Const All systems reviewed & are unremarkable except as noted in HPI and below Physical Exam Vital Signs: Last Vital Signs Temp 98.0 F 02/04/25 11:28 Pulse 84 02/04/25 11:28 BP 160/60 H 02/04/25 11:28 Pulse Ox 95 02/04/25 11:28 Oxygen Delivery Method Room Air 02/04/25 11:28 BMI result Body Mass Index 38.3 Const General: no acute distress; No comfortable Nutritional Appearance: obese Orientation/consciousness: patient oriented x3 Neuro General: patient oriented x3, gait normal (Walks with a Cane) and moves all extremities Extrem Right lower extremity: normal to inspection and full ROM Left lower extremity: ankle Details: tenderness Location: of the lateral malleolus and of the medial malleolus, swelling Details: diffusely and abnormal ROM (Due to pain) Details: pain with active ROM and pain with passive ROM; no crepitus Psych Speech and movement: Normal speech and movement present Assessment & Plan Assessment & Plan (1) Left ankle swelling: Code(s): M25.472 - Effusion, left ankle Plan: DDx's: Gout vs OA Ordered Prednisone for few days Ordered Acetaminophen for pain relief Rest joint Ice/hot Medications: New prednisone 20 mg PO DAILY 10 tabs 0RF 10 days M25.472 - Effusion, left ankle acetaminophen 1,000 mg (2 x 500 mg) PO Q6H 30 caps 0RF pain 10 days M25.472 - Effusion, left ankle Discontinued prednisone Discontinued Reason: Patient Completed Course 40 mg (2 x 20 mg) PO DAILY 5 days 10 tabs 0RF Coding Level of Care Code Est Pt Level 4 (01966) Diagnoses Left ankle swelling M25.472 Time Spent (min) 20
--- OUTSIDE RECORDS SUMMARY | 2025-02-04 12:04 | XMS_ITS | Data Portability ---
Author Organization [facility] Pain Managem ent, PAIN OFFICE Address [address] [facility] [address] [place] [address] Care Team Providers Care Hackler Doll Wigs Name Role Phone DANNY SHALA Referring Provider [phone] ANISHA RALPH Primary Care Provider Assessment Encounter [...] booked for the same. She needs a straddle bug driver on the day of the procedure. [...] pain back to baseline.[facility], L5 and S1 [...] patch 2015 016 miguel [id number], [address] [facility] [place] [place], [address], 6 11:36:11 Celebrex 200 mg capsule 2015 016 [id number], [address] [place], [address], 6 08:56:14 Patient TargetsNo targets recorded. Patient Instructions Encounter Date Encounter Id Patient Instructions Last Modified By Organization Details Last Modified Time 08/16/2015 [id number] She was advised against bed rest lasting longer than four days and to continue activities as tolerated. [email or web address] Not available 08/16/2015 13:04:51 09/01/2015 [id number] She was advised against bed rest lasting longer than four days and to continue activities as tolerated. tmanikantan Not available 09/01/2015 15:28:37 09/07/2015 [id number] She was advised against bed rest lasting longer than four days and to continue activities as tolerated. tmanikantan Not available 09/08/2015 14:18:24 09/13/2015 [id number] She was advised against bed rest lasting longer than four days and to continue activities as tolerated. tmanikantan Not available 09/13/2015 14:59:45 09/23/2015 [id number] She was advised against bed rest lasting longer than four days and to continue activities as tolerated. [email or web address] Not available 09/27/2015 10:03:45 Reason for Referral None Reported. Results Created Date Observation Date Name Description Value Unit Range Abnormal Flag Note LastModifiedBy Organization Detail LastModifiedTime 08/22/19 16 08/22/2015 x-ray , tony lissette, 2 views No observ ation record ed. [facility] Diagnosit Imaging Dept [address] [place] [address], [address], 09/01/2015 15:28:37 Result Notes None recorded. Problems Name Problem SNOMED Code Status Onset Date Resolution Date Notes Provider Name and Address Organization Details Recorded Time Enthesopathy of hip region 08550764 Active Johnny henning MD [address] , [address], [facility] [place], [address], [place] [facility] 6 11:36:10 Lumbosacral spondylosis without myelopathy 08497364 Active Johnny henning MD [address] , [address], [facility] [place], [address], [place] [facility] 6 11:36:10 Lumbar post-laminecto my syndrome 396499366 Jillian henning MD [address] , [address], [facility] [place], [address], [place] [facility] 6 11:36:10 Lumbosacral radiculitis 47036909 Jillian henning MD [address] , [address], [facility] [place], [address], [place] [facility] 6 11:36:10 Disorder of bursa of shoulder region 69040459 Jillian henning MD [address] , [address], [facility] [place], [address], [place] [facility] 6 11:36:11 Muscle pain 06158931 Jillian henning MD [address] , [address], [facility] [place], [address], [place] [facility] 6 11:36:10 Problem Notes None recorded. Procedures Surgical History Date Name Laterality Status Provider Name and Address Organization Details Recorded Time 09/13/19 16 Radiofrequency of Lumbar/Sacral medial branches supplying the facets under fluoroscopic guidance completed Johnny Montanez MD [address] , [address], [place], [address], [place] [facility] 09/14/2015 14:17:33 09/07/19 16 Lumbar median branch block under fluroscopic guidance completed Johnny Montanez MD [address] , [address], [place], [address], [place] [facility] 09/08/2015 14:23:25 08/16/19 16 Fluoroscopic Guided Lumbar Facet Steroid Injections of levels completed Johnny Montanez MD [address] , [address], [place], [address], [place] [facility] 08/16/2015 13:09:50 03/08/20 15 Fluoroscopic Guided Lumbar Facet Steroid Injections of levels completed Johnny Montanez MD [address] , [address], [place], [address], [place] [facility] 03/09/2015 09:22:44 [...] in Arterial blood by Pulse oximetry Systolic And Diastolic Provider Name and Address Organization Details Last Updated DateTime 08/16/2015 68 /min 97 % 97 % 182/72 mm[Hg] Anisha Mendieta [facility] Pain Management 6 10:23:34 Date Recorded Oxygen saturation Oxygen saturation in Arterial blood by Pulse oximetry Heart rate Systolic And Diastolic Provider Name and Address Organization Details Last Updated DateTime 09/01/2015 97 % 97 % 76 /min 118/58 mm[Hg] Anisha Mendieta [facility] Pain Management 6 15:00:38 Date Recorded Oxygen saturation Oxygen saturation in Arterial blood by Pulse oximetry Heart rate Systolic And Diastolic Provider Name and Address Organization Details Last Updated DateTime 09/07/2015 99 % 99 % 65 /min 140/88 mm[Hg] Anisha Mendieta [facility] Pain Management 6 09:43:17 Date Recorded Oxygen saturation Oxygen saturation in Arterial blood by Pulse oximetry Heart rate Systolic And Diastolic Provider Name and Address Organization Details Last Updated DateTime 09/13/2015 98 % 98 % 67 /min 157/45 mm[Hg] Anisha Mendieta [facility] Pain Management 6 10:18:19 Date Recorded Oxygen saturation Oxygen saturation in Arterial blood by Pulse oximetry Heart rate Systolic And Diastolic Provider Name and Address Organization Details Last Updated DateTime 09/23/2015 97 % 97 % 69 /min 143/76 mm[Hg] Anisha Carrollzier [place] [facility] 6 08:56:14 Social History Question Answer Notes LastModified by Organizat ion Details LastModified Time Tobacco Smoking Status Former Smoker Quit x 40 years Not Available [employer] 05/13/2020 03:16:11 Which Illicit Or Recreational Drugs Have You Used? No [id number] Information not available 05/13/2020 Education 12 [employer] Information no t available 03/01/2015 Live Alone Or With Others? Alone [facility] Information not available 03/01/2015 Marital Status [employer] Informatio n not available 03/01/2015 How Many Years Have You Smoked Tobacco? 20 [id number] Information not available 05/13/2020 Sex: Unknown Functional Status Question Answer Note LastModified by Organization D etails LastModified Time What is your level of alcohol consumption? Moderate Wine [id number] Information not available 05/13/2020 Are you currently employed? No [id number] Information not available 05/13/2020 Mental Status None [...] SNOMED-CT Code Diagnosis ICD10 Code Diagnosis Note [id number] Johnny Montanez MD PAIN OFFICE [address] [place] [address] 03/01/2015 10:09:29 03/02/2015 11:29:26 Lumbar post-laminectomy syndrome 022256358 Lumbosacra l radiculitis 43155479 Lumbosacra l spondylosis without myelopathy 17528231 Enthesopat hy of hip region 58837459 93471 Johnny Montanez MD PAIN OFFICE [address] [place] [address] 03/08/2015 14:21:23 03/09/2015 09:25:14 Lumbosacral spondylosis without myelopathy 40448757 Enthesopat hy of hip region 29006407 Lumbosacra l radiculitis 13551713 Lumbar post-laminectomy syndrome 499304515 99376 Johnny Montanez MD [facility] PAIN OFFICE [address] [facility] [place] [address] 04/11/2015 14:50:34 04/12/2015 09:13:56 Lumbosacral spondylosis without myelopathy 47879220 Enthesopat hy of hip region 20901302 Lumbosacra l radiculitis 02294765 Lumbar post-laminectomy syndrome 899518185 41970 Johnny Montanez MD PAIN OFFICE [address] [facility] [place] [address] 08/16/2015 10:11:47 08/16/2015 14:46:00 Lumbosacral spondylosis without myelopathy 42565513 M47.817 Enthesopat hy of hip region 24413066 M76.9 Lumbosacra l radiculitis 91516567 M54.17 Lumbar post-laminectomy syndrome 944412732 M96.1 Disorder o f bursa of shoulder region 88036514 M25.812 56639 Johnny Montanez MD [facility] PAIN OFFICE [address] [facility] [place] [address] 09/01/2015 14:03:53 09/01/2015 15:37:11 Lumbosacral spondylosis without myelopathy 27571885 M47.817 Enthesopat hy of hip region 03019622 M76.9 Disorder o f bursa of shoulder region 01995268 M25.812 Lumbosacra l radiculitis 06212269 M54.17 Lumbar post-laminectomy syndrome 301514903 M96.1 52674 Johnny Montanez MD [facility] PAIN OFFICE [address] [facility] [place] [address] 09/07/2015 09:36:32 09/08/2015 14:24:03 Lumbosacral spondylosis without myelopathy 87486242 M47.817 Enthesopat hy of hip region 77019822 M70.61 Disorder o f bursa of shoulder region 39854419 M25.812 Lumbosacra l radiculitis 04574267 M54.17 Lumbar post-laminectomy syndrome 994129756 M96.1 01891 Johnny Montanez MD PAIN OFFICE [address] [place] [address] 09/13/2015 10:08:37 09/13/2015 15:13:45 Lumbosacral spondylosis without myelopathy 41240360 M47.817 Lumbar post-laminectomy syndrome 325201639 M96.1 Enthesopat hy of hip region 30943551 M70.61 Disorder o f bursa of shoulder region 26081423 M25.812 Lumbosacra l radiculitis 63083776 M54.17 24316 Johnny Montanez MD PAIN OFFICE [address] [place] [address] 09/23/2015 08:47:47 09/27/2015 11:36:33 Lumbosacral spondylosis without myelopathy 96542346 M47.817 Lumbar post-laminectomy syndrome 699585937 M96.1 Lumbosacra l radiculitis 42273664 M54.17 Muscle pain 03942103 M79 .1 Enthesopat hy of hip region 32041414 M70.61 Disorder o f bursa of shoulder region 69409872 M25.812 Health Concerns Section Related Observation LastModified by Organization Detai ls LastModified Time None Recorded Concern Status LastModified by Organization Details LastModified Time None Recorded Advance Directives Directive None Recorded Payers Insurance Date Sequence Insurance Name Policy Number Policy Blanco Covered Member ID Blanco Member ID Guarantor Name 04/11/2015 1 ROSITA BARRIOS - MEDICARE-[address] LONG-TERM BOARD (MEDICARE) Brenda Wolf [id number] Brenda Wolf 09/01/2015 1 MEDICARE B-[place]: [facility] [employer] Brenda Wolf [id number] Brenda Wolf 09/27/2015 2 [facility] (MEDICARE SUPPLEMENT) Brenda Wolf [id number] Brenda Luciano Notes Date Note Type Note Provider Name [...] her left shoulder. Johnny Montanez MD [address], [place], [address], [facility] 08/18/2015 09:24:14 09/01/2015 text/html She is here for a follow up after a left shoulder X-ray. 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 She states she has seen a PA at [facility] and she recommended a total knee [...] an issue presently. Johnny Montanez MD [address] [facility] , [address], [place], [address], [facility] 09/02/2015 11:09:45 09/07/2015 text/html She is here for a trial of right median branch block under fluoroscopic guidance at L4, L5and S1 medial branches. Johnny Montanez MD [address] [facility] , [address], [place], [address], [facility] 09/08/2015 15:45:44 09/13/2015 text/html [...] with the RF. Johnny Montanez MD [address] [facility] , [address], [place], [address], [facility] Pain Management 09/14/2015 14:17:41 09/23/2015 text/html [...] or bowel incontinence. Johnny Montanez MD [address] [facility] , [address], [place], [address], [facility] Pain Management 10/03/2015 08:52:43 OBGyn Episode No OBEpisode recorded.
--- OUTSIDE RECORDS SUMMARY | 2025-02-04 12:04 | XMS_ITS | Patient Health Record ---
Author Organization [facility] Address [address] [place] [address] Care Team Providers Care Assessment Analyst Name Role Phone Ling Middleton DNP Primary Care Provider Elbert Jose Jr Unavailable [phone] Allergies Allergen (clinical drug ingredient) Drug/Non Drug [...] a day for 30 day(s) Active Ipratropium [place] 0.06 % 2 sprays in e ach nostril Nasally Three times a day for 4 day(s) Active Amoxicillin 500 MG 1 capsule Orally NEEDED FOR DENTIST Active Calcium 500 MG 1 tablet Orally Once a day Active Tramadol & Dietary Manage Prod Active Vitamin D3 Ultra Potency 39265 UNIT 1 tablet Orally as directed Active [...] Problem Status W/U Status Risk Notes Problem 26578883 Rectal bleeding (K62.5) Active confirmed Problem 248677048 Gastro-esophagea l reflux disease without esophagitis (K21.9) Active confirmed Problem 86176353 Cough (R05) Active confirmed Problem 120833491 Urinary incontinence, unspecified type (R32) Active confirmed Plan Of Treatment Pending Test Test Name Order Date XR GI SERIES 07/14/2015 Insurance Providers Payer Name Payer Address Payer Phone Subscriber Number Group Number Insured Name Patient Relationship to Insured Coverage Start Date Coverage End Date MEDICARE OF [place] [address] [place] [address] [id number] KAY COLLINS Self - patient is the insured [employer] [address] [place] [phone] [id number] KAY COLLINS Self - patient is the insured Medical (General) History Medical History History ICD Code EGD/colonoscopy 01/03/2006. No evidence of Morse's esophagus. Hyperplastic colon polyp. Seasonal allergic rhinitis hypertension hypercholesterolemia scoliosis arthritis depression Surgical History Surgery Date(Month/Year) Vocal cord polyp 2006 Multiple back and neck surgeries rotator cuff surgery both knee replacement left
--- OUTSIDE RECORDS SUMMARY | 2025-02-04 12:05 | XMS_ITS | Patient Health Record ---
Author Organization [facility] Address [address] [facility] [place] [address] Care Team Providers Care Straight Slicing Machine Operator Name Role Phone Allison Ham Primary Care Provider Nyla Sharma Unavailable [phone] Allergies Allergen (clinical drug ingredient) Drug/Non Drug [...] MG as directed Orally 06/28/2020 Active Ipratropium [place] 0.06 % USE 1 SPRAY IN EACH [...] fentaNYL Not-Taking traMADol HCl Not-Serge ing Nasal [place] Active Meloxicam Not-Taking Vitamin D 400 UNIT [...] primary osteoarthritis of the ankle and/or foot (895702597) 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 Plan Of Treatment Pending Test Test Name Order Date MRI : Foot, left 06/28/2020 X ray : Foot, left 3V 05/25/2020 X ray : Foot, right 3V 07/19/2017 X ray : Foot, right 3V 06/19/2019 78922-QRUTONM NAIL, 6 OR MORE 03/07/2018 86062-Yoigycfy Plate 06/25/2011 88820- Debride <25 sq cm 07/11/2011 59287,F2157-YVC TENDON SHEATH/LIGAMENT 1 08/19/2018 94458,Q3964-PEV TENDON SHEATH/LIGAMENT 0 03/07/2018 13681,Q7977-SQP TENDON SHEATH/LIGAMENT 1 77877,G1431-HDR TENDON SHEATH/LIGAMENT 0 01/06/2020 36058,Y4296-FUM TENDON SHEATH/LIGAMENT 0 04/12/2020 42894- Unna Boot 06/19/2019 X ray : Ankle, right 3V 06/19/2019 Next Appt Details Provider Name:Nyla wang, 04/09/2025 10:30:00 AM, [address] [place] [address], [address], Insurance Providers Payer Name Payer Address Payer Phone Subscriber Number Group Number Insured Name Patient Relationship to Insured Coverage Start Date Coverage End Date Medicare National [employer] [address] [place] [address] [id number] Brenda Wolf Self - patient is the insured [address] [place] [address] [place] [phone] [id number] Brenda Wolf Self - patient is the [...] Date(Month/Year) right foot hurting diagnosed plantar 07/17/2017 [facility]- jaswinder,CAT scan, yaz, 06/15/19- 1 08/19/18 [facility]- Spinal sten osis Sx 11/26/2017
== END 2025-02-04 13:15 | disposition home or self-care (01) ==
PROVIDERS: PCP Physician Assistant; Visit Provider Nurse Practitioner Family
DX: M25.472 Effusion, left ankle (principal)

== ENCOUNTER → 2025-02-04 11:25 | Outpatient (BNVA) | payer MEDICARE, OTHER, SELFPAY | PROVIDERS: PCP Physician Assistant; Visit Provider Nurse Practitioner Family | DX: M25.472 Effusion, left ankle (principal) | CPT/HCPCS: 99212 ==

== ENCOUNTER 2025-02-20 10:20 | Inpatient (IN) | payer MEDICARE, OTHER, SELFPAY ==
--- NOTE | ~2025-02-20 | XR_ITS ---
CLINICAL HISTORY: pain, fall 3 view, pelvis and left hip Comparison: None provided Findings: No acute fracture. No dislocation. Lumbosacral spine fusion hardware is present. Mild arthritic change. Chondrocalcinosis is present. The soft tissues are unremarkable. IMPRESSION: No acute findings. This document has been electronically signed by: Anisha Andino MD on 02/20/2025 13:15:17
--- NOTE | ~2025-02-20 | CT_ITS ---
CLINICAL HISTORY: fall neck trauma CT cervical spine without contrast Comparison: CR/LA/SR - XR CERVICAL SPINE 3V - 04/09/24 17:13 EDT Findings: Grade 1 anterolisthesis of C3 on C4. Remaining alignment is normal. There is ankylosis of the C5 and C6 vertebral bodies. There is multilevel spondylosis and osteoarthritis. There is no significant central canal stenosis. No acute fractures or dislocations. No acute findings on limited view of the intracranial contents. No cervical fluid collections or masses. No consolidation or effusion at the lung apices. IMPRESSION: No acute abnormality of the cervical spine. This document has been electronically signed by: Anisha Andino MD on 02/20/2025 13:21:30
--- NOTE | ~2025-02-20 | XR_ITS ---
CLINICAL HISTORY: Right foot pain 3 view right foot Comparison: None provided Findings: No fractures or dislocations. Joint space narrowing and periarticular osteophyte formation at the 1st metatarsophalangeal joint as well as the interphalangeal joints of the digits. There is chronic appearing erosion of the medial aspect of the 1st metatarsal head with adjacent soft tissue calcifications. Calcaneal spurring No ankle effusion. No radiopaque foreign body. IMPRESSION: 1. No acute findings. 2. Possible gout involving the 1st metatarsal head. This document has been electronically signed by: Sage Yo MD on 02/21/2025 15:35:42
--- NOTE | ~2025-02-20 | XR_ITS ---
CLINICAL HISTORY: fall 1 view chest x-ray Comparison: CR/SR - XR CHEST 2 VIEWS - 01/31/24 15:31 EDT Findings: No consolidation or effusion. Heart size is normal. No acute fracture. IMPRESSION: 1. No acute findings. This document has been electronically signed by: Anisha Andino MD on 02/20/2025 13:15:27
--- NOTE | ~2025-02-20 | CT_ITS ---
CLINICAL HISTORY: fall headstrike on xarelto CT head without contrast Comparison: None Findings: Involutional change and nonspecific white matter hypodensity. No intracranial mass, midline shift, hydrocephalus, or acute hemorrhage. Orbits, paranasal sinuses, and mastoid air cells are unremarkable. No skull fracture Impression: 1. No acute findings This document has been electronically signed by: Anisha Andino MD on 02/20/2025 13:21:48
--- NOTE | 2025-02-20 10:31 | ECG_ITS ---
Test Reason : WEAKNESS Blood Pressure : */* mmHG Vent. Rate : 74 BPM Atrial Rate : 74 BPM P-R Int : 140 ms QRS Dur : 78 ms QT Int : 408 ms P-R-T Axes : 36 -9 12 degrees QTcB Int : 452 ms Normal sinus rhythm Minimal voltage criteria for LVH, may be normal variant ( R in aVL ) Borderline ECG When compared with ECG of 08-Jan-2024 10:35, No significant change was found Referred By: Linh Deng Electronically Signed By: Jigar Gant
[2025-02-20 10:33] VITALS: BP 198/90; BP 199/67; PULSE 72; RESP 18; TEMP 36.3; O2SAT 96; BMI 37.5
--- NOTE | 2025-02-20 10:58 | ED.SYNCOPE ---
HPI - Syncope General Chief Complaint: Fall Stated Complaint: SYNCOPE @ 9PM,ON FLOOR ALL NIGHT PER EMS Source: patient, EMS and old records reviewed Mode of arrival: EMS Limitations: no limitations History of Present Illness ED Provider: LESLY HPI narrative: 89 yo female with PMH of HTN, HLD, deperssion, afib on xarelto, on gabapentin (did not take it last night she doesn't like how she feels) and oxycodone who comes in with c/o feeling sluggish yesterday but no pain no fevers/cough/dysuria. She then was on the cough watching TV went to get up and then woke up on the ground. Unclear LOC. She fell around 9pm she was able this AM to drag herself on the ground to the phone. She has been on the ground since 9pm. She had no preceding symptoms prior to waking up on the floor. She got rugburn and bruising on elbows and knees from dragging herself. MD complaint: loss of consciousness Onset (ago): day(s) (last night 9pm) Prodromal symptoms: none Witnessed: No Context: standing up Injuries sustained associated with event: head and LLE Current symptoms: other (pain with movement of LLE) History: other Treatments prior to arrival: none Related Data Home Medications ?Medication ?Instructions ?Recorded ?Confirmed albuterol sulfate 90 mcg/actuation 2 puff PO Q6H PRN wheezing 03/18/21 01/21/25 aerosol inhaler cholecalciferol (vitamin D3) 50 50 mcg PO DAILY 01/29/24 01/21/25 mcg (2,000 unit) tablet Previous Rx's ?Medication ?Instructions ?Recorded walker #1 ea 05/20/24 fluticasone propionate 50 1 spray intranasal BID #16 grams 06/03/24 mcg/actuation nasal spray,suspension romosozumab-aqqg 210 mg/2.34 210 mg (2.34 mL) subcut .q month 07/30/24 mL(105 mg/1.17 mL x2)subcutaneous 12 months #2.34 mL syringe (Evenity) sertraline 100 mg tablet 100 mg PO DAILY #90 tabs 08/27/24 trazodone 100 mg tablet 100 mg PO BEDTIME Insomnia #90 tabs 09/28/24 vibegron 75 mg tablet (Gemtesa) 75 mg PO DAILY #30 tabs 10/07/24 amlodipine 5 mg tablet 5 mg PO DAILY #90 tabs 10/26/24 bacitracin 500 unit/gram topical 1 appl topical Q8H #14 grams 10/30/24 ointment fluticasone furoate 200 1 ea inhalation DAILY #60 ea 11/04/24 mcg-vilanterol 25 mcg/dose inhalation powder (Breo Ellipta) ipratropium bromide 21 mcg (0.03 2 spray intranasal Q12H #30 mL 11/11/24 %) nasal spray nystatin 100,000 unit/gram topical 1 appl topical BID PRN rash #60 12/08/24 powder grams oxycodone 5 mg tablet 5 mg PO Q8H PRN Pain 28 days #84 01/14/25 tabs gabapentin 300 mg capsule 300 mg PO BID #60 caps 01/21/25 hydrocortisone-pramoxine 2.5 %-1 % 1 appl HI BID PRN hemorrhoids #30 01/21/25 rectal cream grams losartan 100 mg tablet 100 mg PO DAILY #90 tabs 01/21/25 atenolol 25 mg tablet 25 mg PO DAILY #90 tabs 02/01/25 rivaroxaban 20 mg tablet (Xarelto) 20 mg PO QPM 90 days #90 tabs 02/01/25 acetaminophen 500 mg capsule 1,000 mg (2 x 500 mg) PO Q6H pain 02/04/25 10 days #30 caps prednisone 20 mg tablet 20 mg PO DAILY 10 days #10 tabs 02/04/25 atorvastatin 10 mg tablet (Lipitor) 10 mg PO BEDTIME #90 tabs 02/08/25 pantoprazole 40 mg tablet,delayed 40 mg PO DAILY@0630 #90 tabs 02/19/25 release Allergies Allergy/AdvReac Type Severity Reaction Status Date / Time bee pollen Allergy Unknown Unknown Verified 02/20/25 10:39 house dust mite Allergy Unknown Unknown Verified 02/20/25 10:39 adhesive tape AdvReac Intermediate Rash Verified 02/20/25 10:39 Review of Systems Review of Systems: Constitutional : No Fever, No Chills, No Fatigue ENT/Mouth : No sore throat, No Rhinorrhea Eyes: No Eye Pain, No Swelling, No Redness Cardiovascular : No Chest Pain, No SOB, No Dyspnea on Exertion Respiratory : No Cough, No Sputum Gastrointestinal : No Nausea, No Vomiting, No Diarrhea, No abdominal Pain Genitourinary : No Dysuria, No Urinary Frequency, No Hematuria, Musculoskeletal : No joint pain, No Myalgias, No Joint Swelling Skin : No Skin Lesions, No rash, pos skin avulsion Neuro : No Weakness, No Numbness, No Dizziness, positive Headache, pos syncope All other systems reviewed and are negative PMFSH Past Medical History Attestation statement: The following information was validated with the patient. Source: old records reviewed Medical History Left ankle swelling Generalized anxiety disorder Insomnia Major depression, recurrent, chronic Arthritis High blood cholesterol COPD (chronic obstructive pulmonary disease) Urge incontinence Joint pain Chronic back pain HTN (hypertension) Bleeding hemorrhoid Back pain with history of spinal surgery Surgical History History of back surgery History of surgery Family History Family History Father Thrombosis Mother Diabetes Heart rate problem Social History Social History Household Members: None Housing: Apartment Do you presently have visiting nurse or other home services: Yes ([employer] TECHNICIAN for housekeeping 2 times per week) Alcohol intake: current Alcohol intake frequency: holidays/special occasions only Alcohol type: wine Patient Tobacco Use Status: Former Tobacco user Tobacco use type: Cigarette Cigarettes Per Day: 15 Years Smoked: 10 Smoked in Last 30 Days: No e-Cigarette/Vaping Use: Never Used Second Hand Smoke Exposure: No Use of substances other than those prescribed or required for medical reasons: No Advance Directives: No Advance Directives Information Provided: Yes Do you have a plan to hurt others: No Plan service: No Current occupational status: retired Cognitive needs: No Hearing needs: Yes (hearing aids) Vision needs: No Physical Exam Vital Signs: Vital Signs: Last Vital Signs Temp 97.3 F 02/20/25 10:33 Pulse 72 02/20/25 10:33 Resp 18 02/20/25 10:33 BP 199/67 H 02/20/25 10:33 Pulse Ox 96 02/20/25 10:33 O2 Del Method Room Air 02/20/25 10:33 BMI result Body Mass Index 37.5 Appearance: Alert. Oriented X3. No acute distress. Eyes: Pupils equal, round and reactive to light. ENT: Pharynx normal. atraumatic Neck: Normal inspection. Neck supple. no midline ttp CVS: Normal heart rate and rhythm. Pulses normal. Respiratory: No respiratory distress. Breath sounds normal. Abdomen: Soft and nontender. Skin: Skin warm and dry. Normal skin color. Normal skin turgor. Extremities: No lower extremity edema. superficial skin tear R elbow but no pain with ROM, L hip area ttp compartments soft and compressible Neuro: Oriented X 3. No motor deficit. No sensory deficit. CN2-12 intact Course Course Course Narrative: wbc count 21 - lactic acid cultures ordered - infection suspected 1216pm Medications Administered Generic Name Dose Route Start Last Admin Trade Name Freq PRN Reason Stop Dose Admin Lactated Ringer's 1,000 mls @ 80 mls/hr 02/20/25 12:30 02/20/25 12:40 Lr IVCONT 80 mls/hr .[id number] MARCY Administration Discontinued Medications Generic Name Dose Route Start Last Admin Trade Name Freq PRN Reason Stop Dose Admin Ceftriaxone Sodium 1 gm 02/20/25 12:13 02/20/25 12:39 Ceftriaxone Sodium 1 Gm Vial IVPUSH 02/20/25 12:14 1 gm ONCE ONE Administration Medical Decision Making Medical Decision Making [facility] Narrative: 89 yo female with PMH of HTN, HLD, deperssion, afib on xarelto, on gabapentin and oxycodone who comes in with c/o syncope but no prodrome and was on floor for 12 hours - at this time CT head/cspine given age and DOAC use, labs, EKG, hip xray. She had no CP/SOB and always takes her DOAC doubt VTE. She is GCS 15 on arrival. Differential Diagnosis Differential Diagnoses: The differential diagnosis associated with the presentation includes syncope, rhabdo, hip fracture, ICH, anemia, lyte abnormality, arrhythmia Admission/Observation Consideration of admission/observation: Escalation of care including admission/observation considered will admit given WBC count, syncope Consult Healthcare Provider Management of the patient was discussed with: Hospitalist (will admit) Lab Data [facility] Lab Attestation statement: I reviewed the patient's lab results. 02/20/25 11:25 02/20/25 11:41 Labs: Lab Results 02/20/25 02/20/25 02/20/25 Range/Units 11:25 11:41 11:51 WBC 21.3 H (4.8-10.8) X10*3/uL RBC 4.33 (4.20-5.50) X10*6/uL Hgb 13.4 (12.0-16.0) g/dl Hct 39.8 (37.0-47.0) % MCV 91.9 (80.0-98.0) fL MCH 30.9 (27.0-33.0) pg MCHC 33.7 (31.0-35.0) g/dl RDW 13.8 (11.0-16.0) % Plt Count 305 (160-400) X10*3/uL MPV 10.0 (9.4-12.3) fL Immature Gran % (Auto) 0.6 H (0.0-0.4) % Neut % (Auto) 87.6 H (45-73) % Lymph % (Auto) 3.6 L (20-40) % [place] % (Auto) 7.9 (2-11) % Eos % (Auto) 0.0 (0-4) % Baso % (Auto) 0.3 (0-2) % Lymph # (Auto) 0.8 L (1.2-4.9) X10*3/uL [place] # (Auto) 1.7 H (0.1-1.2) X10*3/uL Eos # (Auto) 0.0 (0.0-0.4) X10*3/uL Baso # (Auto) 0.1 (0.0-0.2) X10*3/uL Abs Immat Gran (auto) 0.13 H (0.00-0.03) X10*3/uL Absolute Neuts (auto) 18.7 H (2.0-8.3) x10*3/uL Absolute Nucleated RBC 0.000 (0.0-0.012) X10*3/uL Nucleated RBC % (auto) 0.0 (0.0-0.2) /100WBC Smear Tech's Comments VERIFIED VBG pH 7.39 (7.32-7.43) VBG pCO2 45 mmHg VBG pO2 37 mmHg VBG HCO3 28 H (22-26) mmol/L VBG O2 Saturation 58.0 % VBG Base Excess 2.8 mmol/L Sodium 143 (135-145) mmol/L Potassium 4.4 (3.3-5.1) mmol/L Chloride 109 H (96-108) mmol/L Carbon Dioxide 25 (22-29) mmol/L Anion Gap 13 (12-20) BUN 16 (9-16) mg/dL Creatinine 0.76 (0.5-1.4) mg/dL Estim Creat Clear Calc 46.1 Estimated GFR > 60 Random Glucose 105 (60-115) mg/dL Lactic Acid (0.5-2.0) mmol/L Calcium 9.2 (8.4-10.2) mg/dL Magnesium 1.6 (1.6-2.6) mg/dL Total Bilirubin 0.7 (0.0-1.0) mg/dL Direct Bilirubin 0.3 (0.0-0.5) mg/dL AST 39 H (5-31) U/L ALT 20 (0-31) U/L Alkaline Phosphatase 105 (39-117) U/L Total Creatine Kinase 621 H (26-140) U/L Troponin I High Sens 5.2 D (<3.5-17.0) ng/L B-Natriuretic Peptide 146 H (<100) pg/mL Total Protein 6.8 (6.5-8.0) g/dL Albumin 4.2 (3.5-5.0) g/dL Lipase 15 (8-78) U/L Urine Color Yellow Urine Appearance Clear Urine pH 5.5 (5.0-9.0) Ur Specific [place] 1.010 (1.005-1.025) Urine Protein Trace (Neg-Trace) mg/dL Urine Glucose (UA) Negative (Negative) mg/dL Urine Ketones Negative (Negative) mg/dL Urine Blood Trace H (Negative) Urine Nitrite Negative (Negative) Ur Leukocyte Esterase Negative (Negative) Urine RBC 0-2 (0-2) /HPF Urine WBC 0-5 (0-5) /HPF Ur Squamous Epith Cells 0-2 (0-2) /HPF Urine Bacteria None Seen (None Seen) Hyaline Casts 3-5 (0-2) /LPF Influenza Type A (PCR) NEGATIVE (Negative) Influenza Type B (PCR) NEGATIVE (Negative) RSV RNA Qual (PCR) NEGATIVE (Negative) SARS-CoV-2 RNA (RT-PCR) NEGATIVE (Negative) 02/20/25 Range/Units 12:37 WBC (4.8-10.8) X10*3/uL RBC (4.20-5.50) X10*6/uL Hgb (12.0-16.0) g/dl Hct (37.0-47.0) % MCV (80.0-98.0) fL MCH (27.0-33.0) pg MCHC (31.0-35.0) g/dl RDW (11.0-16.0) % Plt Count (160-400) X10*3/uL MPV (9.4-12.3) fL Immature Gran % (Auto) (0.0-0.4) % Neut % (Auto) (45-73) % Lymph % (Auto) (20-40) % [place] % (Auto) (2-11) % Eos % (Auto) (0-4) % Baso % (Auto) (0-2) % Lymph # (Auto) (1.2-4.9) X10*3/uL [place] # (Auto) (0.1-1.2) X10*3/uL Eos # (Auto) (0.0-0.4) X10*3/uL Baso # (Auto) (0.0-0.2) X10*3/uL Abs Immat Gran (auto) (0.00-0.03) X10*3/uL Absolute Neuts (auto) (2.0-8.3) x10*3/uL Absolute Nucleated RBC (0.0-0.012) X10*3/uL Nucleated RBC % (auto) (0.0-0.2) /100WBC Smear Tech's Comments VBG pH (7.32-7.43) VBG pCO2 mmHg VBG pO2 mmHg VBG HCO3 (22-26) mmol/L VBG O2 Saturation % VBG Base Excess mmol/L Sodium (135-145) mmol/L Potassium (3.3-5.1) mmol/L Chloride (96-108) mmol/L Carbon Dioxide (22-29) mmol/L Anion Gap (12-20) BUN (9-16) mg/dL Creatinine (0.5-1.4) mg/dL Estim Creat Clear Calc Estimated GFR Random Glucose (60-115) mg/dL Lactic Acid 1.5 (0.5-2.0) mmol/L Calcium (8.4-10.2) mg/dL Magnesium (1.6-2.6) mg/dL Total Bilirubin (0.0-1.0) mg/dL Direct Bilirubin (0.0-0.5) mg/dL AST (5-31) U/L ALT (0-31) U/L Alkaline Phosphatase (39-117) U/L Total Creatine Kinase (26-140) U/L Troponin I High Sens (<3.5-17.0) ng/L B-Natriuretic Peptide (<100) pg/mL Total Protein (6.5-8.0) g/dL Albumin (3.5-5.0) g/dL Lipase (8-78) U/L Urine Color Urine Appearance Urine pH (5.0-9.0) Ur Specific [place] (1.005-1.025) Urine Protein (Neg-Trace) mg/dL Urine Glucose (UA) (Negative) mg/dL Urine Ketones (Negative) mg/dL Urine Blood (Negative) Urine Nitrite (Negative) Ur Leukocyte Esterase (Negative) Urine RBC (0-2) /HPF Urine WBC (0-5) /HPF Ur Squamous Epith Cells (0-2) /HPF Urine Bacteria (None Seen) Hyaline Casts (0-2) /LPF Influenza Type A (PCR) (Negative) Influenza Type B (PCR) (Negative) RSV RNA Qual (PCR) (Negative) SARS-CoV-2 RNA (RT-PCR) (Negative) Independent Interpretation I performed an independent interpretation of an: EKG, Plain X-Ray (no trauma) and CT Scan (no trauma) Interpretation: Rate: 74 Rhythm: NSR [place]: left, LVH Normal P waves. Normal TANJA. Normal QRS complex. ST T wave : normal no BELKIS, inverted T wave V1 qTC: 452 prior studies: no acute change from prior The study has been interpreted contemporaneously by me. . Radiology Impression Discussion of test interpretation with radiology: I have reviewed the radiologist's reading. Independent Historian Clinical information obtained from an independent historian. History obtained from or confirmed by: EMS and Other (daughter) External Record Review External record reviewed: Inpatient record and Outpatient record Discharge Plan Discharge Clinical Impression: Elevated WBC count, Syncope Patient Disposition: Admitted As Inpatient Print Language: Mauritanian
--- OUTSIDE RECORDS SUMMARY | 2025-02-20 11:33 | XMS_ITS | Encounter Summary ---
Author Organization [facility] Address [address] [place] [address] Phone Care Team Providers Care Fuel Cell Systems Engineer Name Role Phone Ne Cho MD Unavailable [phone] Unknown, Unknown Primary Care Provider Ling Blanc NP Primary Care Provider + Reason for Referral * Consultation (Elective) - Closed Specialty Diagnoses / Procedures Referred By Contac t Referred To Contact Pulmonary Disease Diagnoses Wheezing Ling Middleton NP Phone: tel: fax: [address] [address] Phone: tel: Referral ID Status Reason Start Date Expiration Date Visits Re quested Visits Authorized [id number] Closed 06/26/2021 06/26/2022 1 1 Encounter Details Date Type Department Care Team (Late st Contact Info) Description 06/26/2021 Transcribe Orders [facility] Pulmonary, Allergy and Critical Care Medicine [address] [place], [place] [id number] Ling Middleton NP [address] [place] [address] [phone] Wheezing (Primary Dx) Social History Tobacco Use Types Packs/Day Years Used Date Smoking Tobacco: Former Cigarettes 1 8 - 1966 Smokeless Tobacco: Never Education Answer Date Recorded Are you interested in help w ith more adult education (for example, completing high school, GED, job training, learning the Italian language, technical skills, or developing parenting skills)? No 10/17/2020 Are you concerned about learning? Not on file 10/17/2020 Not on file 10/17/2020 Not on file 10/17/2020 Food Answer Date Recorded Within the past 6 months we worried whether our food would run out before we got money to buy more. Never True 10/17/2020 Within the past 6 months the food we bought just didn't last and we didn't have enough money to get more. Never True Paying for Meds Answer Date Recorded Do you have trouble paying for medicines? No 10/17/2020 Paying Utility Bills Answer Date Record ed Do you have trouble paying your heating or elect ricity bill? No 10/17/2020 Transportation Answer Date Recorded Has the lack of transportati on kept you from medical appointments or from getting medications? No 10/17/2020 Comments Unknown Sex and Gender Information Value Date Recorded Sex Assigned at Not on file Legal Sex Female 10:14 PM EDT Gender Identity Not on file Sexual Orientation Not on file documented as of this encounter Plan of Treatment Scheduled Referrals Name Type Priority Associated Diagnoses Order Schedule Ambulatory referral to [facility] Pulmonology Outpatient Referral Routine Wheezing Ordered: 06/26/2021 documented as of this encounter Goals Goal Patient Goal Type Associated Problems Recent Progress Patient-Stated? Author Coordinate Care Lifestyle Coordination of complex care Jill Mckeon, RN Note: 1. Assist with coordination of care as needed. 2. Assess patient's knowledge of health conditions and provide education as needed. 3. Ongoing assessment of need for community resources and provide information as needed. Increase Understanding of Health Issues & Promote Good Health Management SKills Lifestyle Chronic back pain No Jill Babcock, RN Note: 1. Pt will call Dr. Kc's office to ensure she is on cancellation list for next f/u appt which was pushed out over 1mo. 2. Pt will continue to use bone stimulator as directed. 3. Pt will attend all post operative appointments and adhere to treatment recommendations. Encourage Healthy Nutrition/Exercise Lifestyle Impaired functional mobility and activity tolerance Jill Mckeon, BIBIANA Note: 1. Pt will explore exercise classes at [facility] once cleared by spinal surgeon. 2. Pt will engage in Weight [employer]chers classes. documented as of this encounter Visit Diagnoses Diagnosis Wheezing- Primary documented in this encounter Additional Health Concerns Assessment Noted Time PHQ-2 Depression Total Score: 0 03/12/20 18 1:28 PM EDT documented as of this encounter Care Teams Fuel Cell Systems Engineer Relationship Specialty Start Date End Date Unknown, Unknown, MD PCP - General 06/28/21 07/04/21 Ling Middleton NP [address] [place] [id number] PCP - General Family Medicine 07/05/21 Ne Cho MD [address] [place] [address], [address] [place] [address] [email or web address] Insurance Assigned Provider 11/04/19 08/04/22 documented as of this encounter Additional Source Comments The information contained in this document represents components of the legal health record. It is not the complete legal health record.[facility]
--- OUTSIDE RECORDS SUMMARY | 2025-02-20 11:33 | XMS_ITS | Patient Health Record ---
[facility] Address [address] [place] [address] Care Team Providers Care Plastic Outfitter Name Role Phone Allison Ham Primary Care Provider Nyla Sharma Unavailable [phone] Allergies Allergen (clinical drug ingredient) Drug/Non Drug [...] MG as directed Orally 06/28/2020 Active Ipratropium [place] 0.06 % USE 1 SPRAY IN EACH [...] fentaNYL Not-Taking traMADol HCl Not-Serge ing Nasal Proctor Active Meloxicam Not-Taking Vitamin D 400 UNIT [...] primary osteoarthritis of the ankle and/or foot (102483986) 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 Plan Of Treatment Pending Test Test Name Order Date MRI : Foot, left 06/28/2020 X ray : Foot, left 3V 05/25/2020 X ray : Foot, right 3V 07/19/2017 X ray : Foot, right 3V 06/19/2019 [id number] NAIL, 6 OR MORE 03/07/2018 [id number] Plate 06/25/2011 32498- Debride <25 sq cm 07/11/2011 [id number] TENDON SHEATH/LIGAMENT 1 08/19/2018 [id number] TENDON SHEATH/LIGAMENT 0 03/07/2018 [id number] TENDON SHEATH/LIGAMENT 1 [id number] TENDON SHEATH/LIGAMENT 0 01/06/2020 [id number] TENDON SHEATH/LIGAMENT 0 04/12/2020 03755- Unna Boot 06/19/2019 X ray : Ankle, right 3V 06/19/2019 Next Appt Details Provider Name:Nyla wang, 04/09/2025 10:30:00 AM, [address] [place] [address], [phone], Insurance Providers Payer Name Payer Address Payer Phone Subscriber Number Group Number Insured Name Patient Relationship to Insured Coverage Start Date Coverage End Date Medicare National Govt [employer] [address] [place] [address] [id number] Brenda Wolf Self - patient is the insured [address] [place] [address] [place] [phone] [id number] Brenda Wolf Self - patient is the [...] Date(Month/Year) right foot hurting diagnosed plantar 07/17/2017 [facility]- jaswinder,CAT scan, yaz, 06/15/19- 1 08/19/18 [place] Jay Crum- Spinal sten osis Sx 11/26/2017
--- OUTSIDE RECORDS SUMMARY | 2025-02-20 11:33 | XMS_ITS | Patient Health Record ---
Author Organization [facility] Address [address] [place] [address] Care Team Providers Care Seed Mill Superintendent Name Role Phone Ling Middleton DNP Primary [...] a day for 30 day(s) Active Ipratropium [place] 0.06 % 2 sprays in e ach nostril Nasally Three times a day for 4 day(s) Active Amoxicillin 500 MG 1 capsule Orally NEEDED FOR DENTIST Active Calcium 500 MG 1 tablet Orally Once a day Active Tramadol & Dietary Manage Prod Active Vitamin D3 Ultra Potency 09966 UNIT 1 tablet Orally as directed Active [...] Problem Status W/U Status Risk Notes Problem 41800018 Rectal bleeding (K62.5) Active confirmed Problem 118652222 Gastro-esophagea l reflux disease without esophagitis (K21.9) Active confirmed Problem 10171033 Cough (R05) Active confirmed Problem 310705844 Urinary incontinence, unspecified type (R32) Active confirmed Plan Of Treatment Pending Test Test Name Order Date XR GI SERIES 07/14/2015 Insurance Providers Payer Name Payer Address Payer Phone Subscriber Number Group Number Insured Name Patient Relationship to Insured Coverage Start Date Coverage End Date MEDICARE OF [place] [address] [place] [address] [id number] KAY COLLINS Self - patient is the insured [employer] [address] [place] [phone] [id number] KAY COLLINS Self - patient is the insured Medical (General) History Medical History History ICD Code EGD/colonoscopy 01/03/2006. No evidence of Morse's esophagus. Hyperplastic colon polyp. Seasonal allergic rhinitis hypertension hypercholesterolemia scoliosis arthritis depression Surgical History Surgery Date(Month/Year) Vocal cord polyp 2006 Multiple back and neck surgeries rotator cuff surgery both knee replacement left
[2025-02-20 11:35] LABS: Hematocrit 39.8 % (37.0-47.0); Hemoglobin 13.4 g/dl (12.0-16.0); Imm Gran Abs Auto 0.13 X10*3/uL (0.00-0.03); Imm Gran Pct Auto 0.6 % (0.0-0.4); Lymphocytes Absolute Auto 0.8 X10*3/uL (1.2-4.9); MANUAL DIFF FLAG SCAN; Mean Corpuscular HGB Conc 33.7 g/dl (31.0-35.0); Mean Corpuscular Hemoglobin 30.9 pg (27.0-33.0); Mean Corpuscular Volume 91.9 fL (80.0-98.0); NRBC Abs Auto 0.000 X10*3/uL (0.0-0.012); NRBC Pct Auto 0.0 /100WBC (0.0-0.2); Platelet Count 305 X10*3/uL (160-400); Red Blood Count 4.33 X10*6/uL (4.20-5.50); SCAN SMEAR FLAG 1; White Blood Count 21.3 X10*3/uL (4.8-10.8)
[2025-02-20 11:37] LABS: Appearance Urine Clear; Glucose Urine UA Negative (Negative); PH 5.5 (5.0-9.0); Specific Gravity - Urine 1.010 (1.005-1.025); UMIC TRIGGER UACC YES
--- NOTE | 2025-02-20 11:52 | PC.NURSE ---
patient a&ox3, vss, c/o lle 9-05/07 pain, c-collar removed by provider, pt notable ecchymosis to upper/lower extremities as well as skin tears to rt/lt elbow area- rt elbow dressed with non stick/cling. pt also had assorted bandaids to lower extremity areas stating she is on a blood thinner and bleeds easy sometimes. ekg performed-nsr, US obtained, labs obtained, pt awaiting radiology, family at bedside, call wilcox within reach, plan of care ongoing
[2025-02-20 11:57] LABS: VBG HCO3 28 mmol/L (22-26); VBG O2 % Saturation 58.0 %
[2025-02-20 11:58] LABS: Venous Blood Gas Refer to POC result
[2025-02-20 12:11] LABS: Resp Syncy Virus RNA Qual PCR NEGATIVE (Negative); SARS COV2 PCR INHOUSE NEGATIVE (Negative)
[2025-02-20 12:13] LABS: Troponin-I High Sensitivity 5.2 ng/L (<3.5-17.0)
[2025-02-20 12:16] LABS: Alanine Aminotransferase 20 U/L (0-31); Albumin Level 4.2 g/dL (3.5-5.0); Alkaline Phosphatase 105 U/L (39-117); Anion Gap 13 (12-20); Aspartate Amino Transferase 39 U/L (5-31); Blood Urea Nitrogen 16 mg/dL (9-16); Calcium 9.2 mg/dL (8.4-10.2); Carbon Dioxide 25 mmol/L (22-29); Chloride 109 mmol/L (96-108); Creatinine Clr Calc Pharmacy 46.1; Estimated Glomerular Filt Rate > 60; Lipase 15 U/L (8-78); Magnesium 1.6 mg/dL (1.6-2.6); Potassium 4.4 mmol/L (3.3-5.1); Sodium 143 mmol/L (135-145); Total Protein 6.8 g/dL (6.5-8.0)
[2025-02-20 12:20] LABS: B Type Natriuretic Peptide 146 pg/mL (<100)
[2025-02-20] MEDS: Lactated Ringers 1,000 ML 80 ML IVCONT ×2 (12:40→17:02)
--- NOTE | 2025-02-20 13:28 | PC.NURSE ---
pt is a very difficult stick, multiple attempts to obtain labs as well as blood cultures. 1 set of blood cultures was obtained, pt was medicated with abx after that was obtained, additional tech will attempt a final time for the second set.
--- NOTE | 2025-02-20 14:23 | PHA.MEDREC ---
Addendum entered by Sisi Huynh RPh 02/20/25 15:04: MED REC REVIEWED BY [facility] Original Note: Pharmacy Consult ? Medication Reconciliation Pharmacy has completed the medication reconciliation. Spoke to patient to confirm med list. Patient was able to say yes to all the medications she takes. Patient states she is no longer taking Prednisone 20 mg. Patient confirmed Evenity 210 mg every month, last dose 01/26/25 next toth is 02/24/25. Patient last had her medications last night.
--- NOTE | 2025-02-20 14:39 | P.HPHOSP_ITS ---
History of Present Illness Date of Service: 02/20/25 Attending physician on admission: Maite Casey Chief Complaint: Fainting Brenda Wolf is a very pleasant 89 years old woman with past medical history significant for hypertension, COPD -no home oxygen, AFib on Xarelto and chronic back pain on oxycodone presents to the ED after she lost consciousness last night around 21:00. She did not remember having any symptoms before and after losing consciousness such as palpitations, dizziness, chest pain or shortness on breath. She denied hitting her head but did hit her legs and arms. She does complain of left growing pain upon flexing it. Upon regaining consciousness she was on the floor where she is unable to tell for how long. Patient mentioned that she has not been feeling well over the last 2 days. No urinary incontinence reported. Patient denied any headache, abdominal pain, nausea, vomiting, diarrhea or pain with urination. She denied double vision, speech difficulty or focal weakness. She is not taking diuretics. She does take only her immediate release oxycodone for chronic pain on gabapentin. She has not been taking her extended release oxycodone because it does not make her feel good. Daughter who was at bedside commented that last she underwent an MR right and received IV contrast. She did not take her home medications this morning. She is a former tobacco smoker and denies alcohol during holidays only. In the ED, was found to have stable vital signs. Her blood pressure is increasing. Last BP is 199/67. Blood workup showed leukocytosis of 21.3. There is no lactic acidosis. Hemoglobin and platelets are normal. Venous blood gas showed no respiratory acidosis. Electrolytes are unremarkable. BUN is 16 and creatinine 0.76. Lipase is normal. AST is 39, ALT 20, alk-phos 105 and total CK is 621. BNP is 146. Urinalysis showed trace blood and RBCs 0-2. There is no evidence of UTI. Viral testing for COVID-19, influenza and RSV is negative. Head CT scan without contrast showed no acute findings. C-spine CT showed no fractures or dislocations. Hip and pelvis x-ray showed no acute findings. CXR is negative. ECG showed normal sinus rhythm, heart rate is 74 beats per minute without ischemic changes. ED tx: Ceftriaxone 1 g IV, LR 80 mL/hour. Review of Systems 2 Review of Systems: All 12 systems were reviewed and normal except as noted in HPI. [facility] Medical History Left ankle swelling Generalized anxiety disorder Insomnia Major depression, recurrent, chronic Arthritis High blood cholesterol COPD (chronic obstructive pulmonary disease) Urge incontinence Joint pain Chronic back pain HTN (hypertension) Bleeding hemorrhoid Back pain with history of spinal surgery Family History Father Thrombosis Mother Diabetes Heart rate problem Surgical History History of back surgery History of surgery Social History Household Members: None Housing: Apartment Do you presently have visiting nurse or other home services: Yes ([employer] for housekeeping 2 times per week) Alcohol intake: current Alcohol intake frequency: holidays/special occasions only Alcohol type: wine Patient Tobacco Use Status: Former Tobacco user Tobacco use type: Cigarette Cigarettes Per Day: 15 Years Smoked: 10 Smoked in Last 30 Days: No e-Cigarette/Vaping Use: Never Used Second Hand Smoke Exposure: No Use of substances other than those prescribed or required for medical reasons: No Advance Directives: No Advance Directives Information Provided: Yes Do you have a plan to hurt others: No Plan service: No Current occupational status: retired Cognitive needs: No Hearing needs: Yes (hearing aids) Vision needs: No Meds Allergies Allergy/AdvReac Type Severity Reaction Status Date / Time bee pollen Allergy Unknown Unknown Verified 02/20/25 10:39 house dust mite Allergy Unknown Unknown Verified 02/20/25 10:39 adhesive tape AdvReac Intermediate Rash Verified 02/20/25 10:39 Active Medications: Current Medications Acetaminophen (Acetaminophen 325 Mg Tablet) 975 mg PO Q6H PRN PRN Reason: Pain, Mild 1-3,fever,headache Amlodipine Besylate (Amlodipine Besylate 5 Mg Tablet) 5 mg PO DAILY [facility]; Protocol Atorvastatin Calcium (Atorvastatin Calcium 10 Mg Tablet) 10 mg PO BEDTIME MARCY Calcium Carbonate (Calcium Carbonate 750 Mg Tab.Chew) 750 mg PO Q4H PRN PRN Reason: Heartburn Fluticasone Propionate (Fluticasone Propionate Nasal 16 Gm [place]) 1 spray NOSTRIL-B BID MARCY Fluticasone/Vilanterol (Fluticasone/Vilanterol 200/25 Blst.W.Dev) puff INHALE DAILY [facility] Lactated Ringer's (Lr) 1,000 mls @ 80 mls/hr IVCONT .[id number] [facility] Last Admin: 02/20/25 12:40 Dose: 80 mls/hr Lactated Ringer's (Lr) 1,000 mls @ 80 mls/hr IVCONT .[id number] [facility] Stop: 02/21/25 02:29 Ipratropium [place] (Ipratropium [place] Benjamin 0.03 % 30 Ml [place]) 2 spray NOSTRIL-B Q12H [facility] Losartan Potassium (Losartan Potassium 50 Mg Tablet) 100 mg PO DAILY MARCY; Protocol Magnesium Hydroxide (Milk Of Magnesia 30 Ml Oral.Susp) 30 ml PO DAILY PRN PRN Reason: Constipation Melatonin (Melatonin 3 Mg Tablet) 6 mg PO BEDTIME PRN PRN Reason: Insomnia Metoprolol Succinate (Metoprolol Succinate Er 50 Mg Tab.Er.24h) 50 mg PO DAILY MARCY; Protocol Non-Formulary Medication (Vibegron [Gemtesa]) 75 mg PO DAILY [facility] Non-Formulary Medication (Pantoprazole) 40 mg PO DAILY@0630 [facility] Oxycodone HCl (Oxycodone Hcl Immed Release 5 Mg Tablet) 5 mg PO Q8H PRN PRN Reason: chronic pain Rivaroxaban (Rivaroxaban 20 Mg Tablet) 20 mg PO BEDTIME MARCY Sertraline HCl (Sertraline Hcl 100 Mg Tablet) 100 mg PO DAILY [facility] Sodium Chloride (0.9 % Sodium Chloride Flush 3 Ml Syringe) 3 ml IVFLUSH QSHIFT [facility] Vitamin D (Cholecalciferol (Vitamin D3) 25 Mcg Tablet) 50 mcg PO DAILY [facility] Home Medications ?Medication ?Instructions ?Recorded ?Confirmed ?Last Taken ?Type albuterol sulfate 90 mcg/actuation 2 puff PO Q6H PRN w heezing 03/18/21 02/20/25 Unknown History aerosol inhaler cholecalciferol (vitamin D3) 50 50 mcg PO DAILY 02/20/25 02/19/25 History mcg (2,000 unit) tablet bacitracin 500 unit/gram topical 1 appl topical Q8H SD N Wound Care 02/20/25 02/20/25 Unknown History ointment fluticasone furoate 200 1 ea inhalation DAILY 02/20/25 02/19/25 History mcg-vilanterol 25 mcg/dose inhalation powder (Breo Ellipta) gabapentin 300 mg capsule 300 mg PO BID PRN Pain 02/2002/20/25 Unknown History metoprolol succinate 50 mg 50 mg PO DAILY 02/20/2502/19/25 History tablet,extended release 24 hr oxycodone myristate 9 mg capsule 9 mg PO Q12H PRN Pain 02/20/25 02/20/25 Unknown History sprinkle extended release 12 hr(DON'T CRUSH) (Xtampza ER) rivaroxaban 20 mg tablet (Xarelto) 20 mg PO BEDTIME 02/20/25 Unknown History romosozumab-aqqg 210 mg/2.34 210 mg subcut QMONTH 01/2702/20/25 01/26/25 History mL(105 mg/1.17 mL x2)subcutaneous syringe (Evenity) vibegron 75 mg tablet (Gemtesa) 75 mg PO DAILY 5 02/20/25 02/19/25 History Physical Exam 2 Vital Signs and Narrative: Vital Signs: Last Vital Signs Temp 97.3 F 02/20/25 10:33 Pulse 72 02/20/25 10:33 Resp 18 02/20/25 10:33 BP 199/67 H 02/20/25 10:33 Pulse Ox 96 02/20/25 10:33 O2 Del Method Room Air 02/20/25 10:33 BMI result Body Mass Index 37.5 Constitutional - Awake and Alert, No apparent distress. Cooperative. Obese. HEENT - Atraumatic head. Dry oral mucosa. PERRL, EOMI Heart - RRR, No murmurs Lungs - Normal lung expansion, Normal respiratory effort, No respiratory distress, CTA bilaterally Abdomen - NT / ND; +BS; No rebound or guarding - No CVA tenderness Extremities - no calf tenderness bilaterally, no swelling. Right hip tenderness, limited ROM due to pain. Right foot: 3rd toe: Edema, hematoma. Right forearm: Abrasions Musculoskeletal - generalized atrophy Skin - Warm/Dry. No pallor. No jaundice. Neurological - Alert & oriented x3. Moving all extremities spontaneously. Normal speech. Psychological - Appropriate affect Results Labs 02/20/25 11:25 02/20/25 11:41 Labs: Laboratory Results - last 24 hr 02/20/25 02/20/25 02/20/25 11:25 11:41 11:51 MCV 91.9 MCH 30.9 MCHC 33.7 RDW 13.8 Plt Count 305 MPV 10.0 Immature Gran % (Auto) 0.6 H Neut % (Auto) 87.6 H Lymph % (Auto) 3.6 L [place] % (Auto) 7.9 Eos % (Auto) 0.0 Baso % (Auto) 0.3 Lymph # (Auto) 0.8 L [place] # (Auto) 1.7 H Eos # (Auto) 0.0 Baso # (Auto) 0.1 Abs Immat Gran (auto) 0.13 H Absolute Neuts (auto) 18.7 H Absolute Nucleated RBC 0.000 Nucleated RBC % (auto) 0.0 Smear Tech's Comments VERIFIED VBG pH 7.39 VBG pCO2 45 VBG pO2 37 VBG HCO3 28 H VBG O2 Saturation 58.0 VBG Base Excess 2.8 Anion Gap 13 Estim Creat Clear Calc 46.1 Estimated GFR > 60 Random Glucose 105 Lactic Acid Calcium 9.2 Magnesium 1.6 Total Bilirubin 0.7 Direct Bilirubin 0.3 AST 39 H ALT 20 Alkaline Phosphatase 105 Total Creatine Kinase 621 H B-Natriuretic Peptide 146 H Total Protein 6.8 Albumin 4.2 Lipase 15 Urine Color Yellow Urine Appearance Clear Urine pH 5.5 Ur Specific [place] 1.010 Urine Protein Trace Urine Glucose (UA) Negative Urine Ketones Negative Urine Blood Trace H Urine Nitrite Negative Ur Leukocyte Esterase Negative Urine RBC 0-2 Urine WBC 0-5 Ur Squamous Epith Cells 0-2 Urine Bacteria None Seen Hyaline Casts 3-5 Influenza Type A (PCR) NEGATIVE Influenza Type B (PCR) NEGATIVE RSV RNA Qual (PCR) NEGATIVE SARS-CoV-2 RNA (RT-PCR) NEGATIVE 02/20/25 12:37 MCV MCH MCHC RDW Plt Count MPV Immature Gran % (Auto) Neut % (Auto) Lymph % (Auto) [place] % (Auto) Eos % (Auto) Baso % (Auto) Lymph # (Auto) [place] # (Auto) Eos # (Auto) Baso # (Auto) Abs Immat Gran (auto) Absolute Neuts (auto) Absolute Nucleated RBC Nucleated RBC % (auto) Smear Tech's Comments VBG pH VBG pCO2 VBG pO2 VBG HCO3 VBG O2 Saturation VBG Base Excess Anion Gap Estim Creat Clear Calc Estimated GFR Random Glucose Lactic Acid 1.5 Calcium Magnesium Total Bilirubin Direct Bilirubin AST ALT Alkaline Phosphatase Total Creatine Kinase B-Natriuretic Peptide Total Protein Albumin Lipase Urine Color Urine Appearance Urine pH Ur Specific [place] Urine Protein Urine Glucose (UA) Urine Ketones Urine Blood Urine Nitrite Ur Leukocyte Esterase Urine RBC Urine WBC Ur Squamous Epith Cells Urine Bacteria Hyaline Casts Influenza Type A (PCR) Influenza Type B (PCR) RSV RNA Qual (PCR) SARS-CoV-2 RNA (RT-PCR) Assessment and Plan (1) Syncope: Qualifiers: Syncope type: unspecified Qualified Code(s): R55 - Syncope and collapse Status: Acute (2) Chronic pain syndrome: Status: Acute Plan Brenda Wolf is a 89 y/o woman admitted with: Syncope, possible cardiac. No prodrome symptoms. Observation. Telemetry. Orthostatic vital signs Q shift. Hold Stampza ER/oxycodone, gabapentin and trazodone. Patient is on 2 different beta-blockers: Atenolol and metoprolol. Hold atenolol and continue metoprolol for now. Check TTE. Cardiology consult. Elevated total CK, + blood in urine (normal RBC). Mild rhabdomyolysis. Renal function is normal. Ringer lactate 500 mg IV now then 80 mL/hour. Encourage oral hydration. Continue to monitor total CK. Leukocytosis, likely secondary to above. IV fluids. No other SIRS criteria. Blood culture obtained in the ED -following resolved. Continue to monitor. Left groin hip pain. Hip and pelvic x-rays negative for fractures. Likely secondary to recent trauma/muscular. Continue oxycodone. Paroxysmal atrial fibrillation, currently rate and rhythm controlled. Continue metoprolol and Xarelto Multiple abrasions to extremities. Local care daily. Essential hypertension. Continue metoprolol and amlodipine, to be given now. Continue losartan. COPD. I did not acute exacerbation. Continue home inhalers. Overeactive bladder. Continue Gemtesa. Depression. Continue sertraline. Hyperlipidemia. Continue statin. Chronic back pain/history of spinal surgery due to spinal stenosis. Continue oxycodone immediate release 5 mg every 8 hours as needed. DVT prophylaxis: Xarelto Code status: Full Quality Stroke Does the patient have a stroke diagnosis?: No VTE Prior VTE?: No VTE Risk Level:: Medical - moderate - high VTE Device Contraindication: Treatment Not Indicated VTE Drug Contraindication: N/A - Med Ordered
[2025-02-20 16:00] VITALS: BP 201/89; PULSE 79; RESP 18; TEMP 36.7; O2SAT 97
[2025-02-20] MEDS: Lactated Ringers 500 ML 999 ML IV (16:19)
[2025-02-20 16:23] VITALS: BP 201/89; PULSE 79
[2025-02-20] MEDS: Metoprolol Succinate ER 50 MG TAB.ER.24H PO (16:23)
--- NOTE | 2025-02-20 16:33 | PC.NURSE ---
pt placed back on nurse monitoring- nsr on monitor, iv bolus running per order, vitals stable-but had notable htn- pt medicated for her bp as ordered. pt requested rt arm skin tear to be redressed, this nurse put a non stick and juan. family continues to be at bedside, call wilcox within reach, plan of care ongoing.
[2025-02-20] MEDS: Ipratropium Bromide Nas 0.03 % 30 ML SPRAY 2 SPRAY NOSTRIL-B (16:47)
[2025-02-20] MEDS: oxyCODONE HCl Immed Release 5 MG TABLET PO (17:57)
[2025-02-20 18:34] LABS: MANUAL DIFF FLAG NO
[2025-02-20 18:36] LABS: Hematocrit 35.8 % (37.0-47.0); Hemoglobin 12.1 g/dl (12.0-16.0); Imm Gran Abs Auto 0.08 X10*3/uL (0.00-0.03); Imm Gran Pct Auto 0.5 % (0.0-0.4); Lymphocytes Absolute Auto 1.6 X10*3/uL (1.2-4.9); Mean Corpuscular HGB Conc 33.8 g/dl (31.0-35.0); Mean Corpuscular Hemoglobin 30.9 pg (27.0-33.0); Mean Corpuscular Volume 91.3 fL (80.0-98.0); NRBC Abs Auto 0.000 X10*3/uL (0.0-0.012); NRBC Pct Auto 0.0 /100WBC (0.0-0.2); Platelet Count 270 X10*3/uL (160-400); Red Blood Count 3.92 X10*6/uL (4.20-5.50); White Blood Count 16.6 X10*3/uL (4.8-10.8)
[2025-02-20 19:13] VITALS: BMI 38.3
[2025-02-20 19:39] VITALS: BP 193/82; PULSE 76; RESP 18; TEMP 37.1; O2SAT 94
[2025-02-20 20:07] VITALS: BP 168/70
[2025-02-20 23:27] VITALS: BP 146/82; PULSE 72; RESP 16; TEMP 36.6; O2SAT 94
[2025-02-21] VITALS (9 sets, daily range): BP systolic 146–160; BP diastolic 65–90; PULSE 62–81; RESP 16–17; TEMP 36.1–36.6; O2SAT 93–96
[2025-02-21] MEDS: Ipratropium Bromide Nas 0.03 % 30 ML SPRAY 2 SPRAY NOSTRIL-B ×2 (03:31→15:37)
[2025-02-21 07:08] LABS: MANUAL DIFF FLAG NO
[2025-02-21 07:10] LABS: Hematocrit 36.4 % (37.0-47.0); Hemoglobin 12.2 g/dl (12.0-16.0); Imm Gran Abs Auto 0.06 X10*3/uL (0.00-0.03); Imm Gran Pct Auto 0.5 % (0.0-0.4); Lymphocytes Absolute Auto 1.7 X10*3/uL (1.2-4.9); Mean Corpuscular HGB Conc 33.5 g/dl (31.0-35.0); Mean Corpuscular Hemoglobin 31.3 pg (27.0-33.0); Mean Corpuscular Volume 93.3 fL (80.0-98.0); NRBC Abs Auto 0.000 X10*3/uL (0.0-0.012); NRBC Pct Auto 0.0 /100WBC (0.0-0.2); Platelet Count 271 X10*3/uL (160-400); Red Blood Count 3.90 X10*6/uL (4.20-5.50); White Blood Count 12.3 X10*3/uL (4.8-10.8)
[2025-02-21 07:28] LABS: Magnesium 1.8 mg/dL (1.6-2.6)
[2025-02-21 07:31] LABS: Anion Gap 13 (12-20); Blood Urea Nitrogen 9 mg/dL (9-16); Calcium 8.7 mg/dL (8.4-10.2); Carbon Dioxide 27 mmol/L (22-29); Chloride 110 mmol/L (96-108); Creatinine Clr Calc Pharmacy 52.1; Estimated Glomerular Filt Rate > 60; Potassium 3.9 mmol/L (3.3-5.1); Sodium 146 mmol/L (135-145)
[2025-02-21] MEDS: Fluticasone/Vilanterol 200/25 BLST.W.DEV 1 PUFF INHALE (07:32)
--- NOTE | 2025-02-21 07:43 | P.PNIM_ITS ---
Subjective Subjective Date of Service: 02/21/25 Interval History: f/u syncope with fall resulting in signficant injury with bruses all arm, but no head injury and h as no recollection of events Physical Exam 2 Vital Signs: Vital Signs: Last Vital Signs Temp 97.7 F 02/21/25 03:47 Pulse 74 02/21/25 07:34 Resp 16 02/21/25 07:34 BP 160/90 H 02/21/25 03:47 Pulse Ox 94 02/21/25 03:47 O2 Del Method Room Air 02/21/25 03:47 BMI result Body Mass Index 38.3 General: AO X 3, no acute distress Resp: CTA bilateral CVS: S1,S2,RRR GI: +BS, NT, no distention Skin: bruses on left arm tears on right arm with dressing in place Neuro: motor grossly intact Psych: appropriate affect Objective Data Active Medications Acetaminophen (Acetaminophen 325 Mg Tablet) 975 mg PO Q6H PRN PRN Reason: Pain, Mild 1-3,fever,headache Amlodipine Besylate (Amlodipine Besylate 5 Mg Tablet) 5 mg PO DAILY [facility]; Protocol Last Admin: 02/20/25 16:23 Dose: 5 mg Documented By: SUSANNAH Atorvastatin Calcium (Atorvastatin Calcium 10 Mg Tablet) 10 mg PO BEDTIME [facility] Last Admin: 02/20/25 20:02 Dose: 10 mg Documented By: CHERI Calcium Carbonate (Calcium Carbonate 750 Mg Tab.Chew) 750 mg PO Q4H PRN PRN Reason: Heartburn Fluticasone Propionate (Fluticasone Propionate Nasal 16 Gm [place]) 1 spray NOSTRIL-B BID [facility] Last Admin: 02/20/25 22:43 Dose: Not Given Documented By: CHERI Non-Admin Reason: Med Not Available Fluticasone/Vilanterol (Fluticasone/Vilanterol 200/25 Blst.W.Dev) 1 puff INHALE RDAILY [facility] Last Admin: 02/21/25 07:32 Dose: 1 puff Documented By: YOLANDA Ipratropium [place] (Ipratropium [place] Benjamin 0.03 % 30 Ml [place]) 2 spray NOSTRIL-B Q12H [facility] Last Admin: 02/21/25 03:31 Dose: 2 spray Documented By: CHERI Losartan Potassium (Losartan Potassium 50 Mg Tablet) 100 mg PO DAILY [facility]; Protocol Magnesium Hydroxide (Milk Of Magnesia 30 Ml Oral.Susp) 30 ml PO DAILY PRN PRN Reason: Constipation Melatonin (Melatonin 3 Mg Tablet) 6 mg PO BEDTIME PRN PRN Reason: Insomnia Metoprolol Succinate (Metoprolol Succinate Er 50 Mg Tab.Er.24h) 50 mg PO DAILY [facility]; Protocol Last Admin: 02/20/25 16:23 Dose: 50 mg Documented By: SUSANNAH Non-Formulary Medication (Vibegron [Gemtesa]) 75 mg PO DAILY [facility] Omeprazole (Omeprazole 20 Mg Capsule.Dr) 20 mg PO DAILY@0630 [facility] Last Admin: 02/21/25 05:30 Dose: 20 mg Documented By: CHERI Oxycodone HCl (Oxycodone Hcl Immed Release 5 Mg Tablet) 5 mg PO Q8H PRN PRN Reason: chronic pain Last Admin: 02/20/25 17:57 Dose: 5 mg Documented By: SUSANNAH Rivaroxaban (Rivaroxaban 20 Mg Tablet) 20 mg PO BEDTIME [facility] Last Admin: 02/20/25 20:02 Dose: 20 mg Documented By: CHERI Sertraline HCl (Sertraline Hcl 100 Mg Tablet) 100 mg PO DAILY [facility] Sodium Chloride (0.9 % Sodium Chloride Flush 3 Ml Syringe) 3 ml IVFLUSH QSHIFT [facility] Last Admin: 02/21/25 01:06 Dose: Not Given Documented By: CHERI Non-Admin Reason: IV Running Vitamin D (Cholecalciferol (Vitamin D3) 25 Mcg Tablet) 50 mcg PO DAILY [facility] Labs 02/21/25 06:37 02/21/25 06:37 Labs: Laboratory Results - last 24 hr 02/20/25 02/20/25 02/20/25 11:25 11:41 11:51 MCV 91.9 MCH 30.9 MCHC 33.7 RDW 13.8 Plt Count 305 MPV 10.0 Immature Gran % (Auto) 0.6 H Neut % (Auto) 87.6 H Lymph % (Auto) 3.6 L [place] % (Auto) 7.9 Eos % (Auto) 0.0 Baso % (Auto) 0.3 Lymph # (Auto) 0.8 L [place] # (Auto) 1.7 H Eos # (Auto) 0.0 Baso # (Auto) 0.1 Abs Immat Gran (auto) 0.13 H Absolute Neuts (auto) 18.7 H Absolute Nucleated RBC 0.000 Nucleated RBC % (auto) 0.0 Smear Tech's Comments VERIFIED VBG pH 7.39 VBG pCO2 45 VBG pO2 37 VBG HCO3 28 H VBG O2 Saturation 58.0 VBG Base Excess 2.8 Anion Gap 13 Estim Creat Clear Calc 46.1 Estimated GFR > 60 Random Glucose 105 Lactic Acid Calcium 9.2 Magnesium 1.6 Total Bilirubin 0.7 Direct Bilirubin 0.3 AST 39 H ALT 20 Alkaline Phosphatase 105 Total Creatine Kinase 621 H B-Natriuretic Peptide 146 H Total Protein 6.8 Albumin 4.2 Lipase 15 Urine Color Yellow Urine Appearance Clear Urine pH 5.5 Ur Specific [place] 1.010 Urine Protein Trace Urine Glucose (UA) Negative Urine Ketones Negative Urine Blood Trace H Urine Nitrite Negative Ur Leukocyte Esterase Negative Urine RBC 0-2 Urine WBC 0-5 Ur Squamous Epith Cells 0-2 Urine Bacteria None Seen Hyaline Casts 3-5 Influenza Type A (PCR) NEGATIVE Influenza Type B (PCR) NEGATIVE RSV RNA Qual (PCR) NEGATIVE SARS-CoV-2 RNA (RT-PCR) NEGATIVE 02/20/25 02/20/25 02/21/25 12:37 18:30 06:37 MCV 91.3 93.3 MCH 30.9 31.3 MCHC 33.8 33.5 RDW 14.0 14.3 Plt Count 270 271 MPV 9.9 10.4 Immature Gran % (Auto) 0.5 H 0.5 H Neut % (Auto) 79.8 H 73.4 H Lymph % (Auto) 9.7 L 13.6 L [place] % (Auto) 9.0 9.2 Eos % (Auto) 0.6 2.9 Baso % (Auto) 0.4 0.4 Lymph # (Auto) 1.6 1.7 [place] # (Auto) 1.5 H 1.1 Eos # (Auto) 0.1 0.4 Baso # (Auto) 0.1 0.1 Abs Immat Gran (auto) 0.08 H 0.06 H Absolute Neuts (auto) 13.3 H 9.1 H Absolute Nucleated RBC 0.000 0.000 Nucleated RBC % (auto) 0.0 0.0 Smear Tech's Comments VBG pH VBG pCO2 VBG pO2 VBG HCO3 VBG O2 Saturation VBG Base Excess Anion Gap 13 Estim Creat Clear Calc 52.1 Estimated GFR > 60 Random Glucose 110 Lactic Acid 1.5 Calcium 8.7 Magnesium 1.8 Total Bilirubin Direct Bilirubin AST ALT Alkaline Phosphatase Total Creatine Kinase B-Natriuretic Peptide Total Protein Albumin Lipase Urine Color Urine Appearance Urine pH Ur Specific [place] Urine Protein Urine Glucose (UA) Urine Ketones Urine Blood Urine Nitrite Ur Leukocyte Esterase Urine RBC Urine WBC Ur Squamous Epith Cells Urine Bacteria Hyaline Casts Influenza Type A (PCR) Influenza Type B (PCR) RSV RNA Qual (PCR) SARS-CoV-2 RNA (RT-PCR) Assessment and Plan (1) Syncope: Status: Acute Plan 89 years old woman with past medical history significant for hypertension, COPD -no home oxygen, AFib on Xarelto and chronic back pain on oxycodone presented with syncope Syncope, possible cardiac. No prodrome symptoms. Telemetry. Orthostatic vitals. Hold Stampza ER/oxycodone, gabapentin and trazodone. Patient is on 2 different beta-blockers: Atenolol and metoprolol. Hold atenolol and continue metoprolol for now. Check TTE. Cardiology consult. Elevated total CK, + blood in urine (normal RBC). Mild rhabdomyolysis. Renal function is normal. Ringer lactate 500 mg IV now then 80 mL/hour. Encourage oral hydration. Continue to monitor total CK. Leukocytosis, likely secondary to above. IV fluids. No other SIRS criteria. Blood culture obtained in the ED -following resolved. Down from 16 to 12 Left groin hip pain. Hip and pelvic x-rays negative for fractures. Likely secondary to recent trauma/muscular. Continue oxycodone. Paroxysmal atrial fibrillation, currently rate and rhythm controlled. Continue metoprolol and Xarelto Multiple abrasions to extremities. Local care daily. Essential hypertension. Continue metoprolol and amlodipine, to be given now. Continue losartan. COPD. No acute exacerbation. Continue home inhalers. Overeactive bladder. Continue Gemtesa. Depression. Continue sertraline. Hyperlipidemia. Continue statin. Chronic back pain/history of spinal surgery due to spinal stenosis. Continue oxycodone immediate release 5 mg every 8 hours as needed. DVT prophylaxis: Xarelto Code status: Full Quality Stroke Does the patient have a stroke diagnosis?: No VTE Prior VTE?: No VTE Risk Level:: Medical - moderate - high VTE Device Contraindication: Treatment Not Indicated VTE Drug Contraindication: N/A - Med Ordered
[2025-02-21] MEDS: Metoprolol Succinate ER 50 MG TAB.ER.24H PO (07:55)
[2025-02-21] MEDS: 0.9 % Sodium Chloride Flush 3 ML SYRINGE IVFLUSH ×3 (07:56→20:09)
[2025-02-21] MEDS: oxyCODONE HCl Immed Release 5 MG TABLET PO ×2 (08:09→20:15)
--- NOTE | 2025-02-21 13:05 | PM.CNCAR ---
History of Present Illness History of Present Illness Date of Service: 02/21/25 Requesting physician: Allan Ruiz Chief complaint: SYNCOPE Narrative: 89-year-old female presenting for syncope. She said she was sitting in her chair when she started walking towards the kitchen and passed out. She found herself on the floor with abrasion on the leg and the arm with bleeding from the arm. She said she could not stand up and had to crawl her way to the phone and eventually coronary daughter who called 911. She had a CTA head and neck which was normal. No fracture seen or hip pelvis x-ray. Chest x-ray did not show any acute abnormalities 2. Her labs showed leukocytosis initially which has been improving. She was previously on metoprolol but had some hair loss and was eventually changed to atenolol. She was not taking both of them and was only taking atenolol on admission. No prodrome before she passed out. No chest pain or shortness of breath. [facility] Past Medical History Medical History Left ankle swelling Generalized anxiety disorder Insomnia Major depression, recurrent, chronic Arthritis High blood cholesterol COPD (chronic obstructive pulmonary disease) Urge incontinence Joint pain Chronic back pain HTN (hypertension) Bleeding hemorrhoid Back pain with history of spinal surgery Family History Family History Father Thrombosis Mother Diabetes Heart rate problem Surgical History Surgical History History of back surgery History of surgery Social History Social History Household Members: None Housing: Assisted Living Facility Do you presently have visiting nurse or other home services: No Alcohol intake: current Alcohol intake frequency: holidays/special occasions only Alcohol type: wine Patient Tobacco Use Status: Former Tobacco user Tobacco use type: Cigarette Cigarettes Per Day: 15 Years Smoked: 10 e-Cigarette/Vaping Use: Never Used Second Hand Smoke Exposure: No service: No Current occupational status: retired Cognitive needs: No Hearing needs: Yes (hearing aids) Vision needs: No Meds Allergies Allergy/AdvReac Type Severity Reaction Status Date / Time bee pollen Allergy Unknown Unknown Verified 02/20/25 10:39 house dust mite Allergy Unknown Unknown Verified 02/20/25 10:39 adhesive tape AdvReac Intermediate Rash Verified 02/20/25 10:39 Active Medications: Current Medications Acetaminophen (Acetaminophen 325 Mg Tablet) 975 mg PO Q6H PRN PRN Reason: Pain, Mild 1-3,fever,headache Amlodipine Besylate (Amlodipine Besylate 5 Mg Tablet) 5 mg PO DAILY [facility]; Protocol Last Admin: 02/21/25 07:55 Dose: 5 mg Atorvastatin Calcium (Atorvastatin Calcium 10 Mg Tablet) 10 mg PO BEDTIME [facility] Last Admin: 02/20/25 20:02 Dose: 10 mg Calcium Carbonate (Calcium Carbonate 750 Mg Tab.Chew) 750 mg PO Q4H PRN PRN Reason: Heartburn Fluticasone Propionate (Fluticasone Propionate Nasal 16 Gm [place]) 1 spray NOSTRIL-B BID [facility] Last Admin: 02/21/25 09:21 Dose: 1 spray Fluticasone/Vilanterol (Fluticasone/Vilanterol 200/25 Blst.W.Dev) 1 puff INHALE RDAILY [facility] Last Admin: 02/21/25 07:32 Dose: 1 puff Ipratropium [place] (Ipratropium [place] Benjamin 0.03 % 30 Ml [place]) 2 spray NOSTRIL-B Q12H [facility] Last Admin: 02/21/25 03:31 Dose: 2 spray Losartan Potassium (Losartan Potassium 50 Mg Tablet) 100 mg PO DAILY [facility]; Protocol Last Admin: 02/21/25 07:54 Dose: 100 mg Magnesium Hydroxide (Milk Of Magnesia 30 Ml Oral.Susp) 30 ml PO DAILY PRN PRN Reason: Constipation Melatonin (Melatonin 3 Mg Tablet) 6 mg PO BEDTIME PRN PRN Reason: Insomnia Metoprolol Succinate (Metoprolol Succinate Er 50 Mg Tab.Er.24h) 50 mg PO DAILY [facility]; Protocol Last Admin: 02/21/25 07:55 Dose: 50 mg Non-Formulary Medication (Vibegron [Gemtesa]) 75 mg PO DAILY [facility] Omeprazole (Omeprazole 20 Mg Capsule.Dr) 20 mg PO DAILY@0630 [facility] Last Admin: 02/21/25 05:30 Dose: 20 mg Oxycodone HCl (Oxycodone Hcl Immed Release 5 Mg Tablet) 5 mg PO Q8H PRN PRN Reason: chronic pain Last Admin: 02/21/25 08:09 Dose: 5 mg Rivaroxaban (Rivaroxaban 20 Mg Tablet) 20 mg PO BEDTIME [facility] Last Admin: 02/20/25 20:02 Dose: 20 mg Sertraline HCl (Sertraline Hcl 100 Mg Tablet) 100 mg PO DAILY [facility] Last Admin: 02/21/25 07:55 Dose: 100 mg Sodium Chloride (0.9 % Sodium Chloride Flush 3 Ml Syringe) 3 ml IVFLUSH QSHIFT [facility] Last Admin: 02/21/25 07:56 Dose: 3 ml Vitamin D (Cholecalciferol (Vitamin D3) 25 Mcg Tablet) 50 mcg PO DAILY [facility] Last Admin: 02/21/25 07:56 Dose: 50 mcg Home Medications ?Medication ?Instructions ?Recorded ?Confirmed ?Last Taken ?Type albuterol sulfate 90 mcg/actuation 2 puff PO Q6H PRN wheezing 03/18/21 02/20/25 Unknown History aerosol inhaler cholecalciferol (vitamin D3) 50 50 mcg PO DAILY 01/29/24 02/20/25 02/19/25 History mcg (2,000 unit) tablet bacitracin 500 unit/gram topical 1 appl topical Q8H PRN Wound Care 02/20/25 02/20/25 Unknown History ointment fluticasone furoate 200 1 ea inhalation DAILY 02/20/25 02/20/25 02/19/25 History mcg-vilanterol 25 mcg/dose inhalation powder (Breo Ellipta) gabapentin 300 mg capsule 300 mg PO BID PRN Pain 02/20/25 02/20/25 Unknown History metoprolol succinate 50 mg 50 mg PO DAILY 02/20/25 02/20/25 02/19/25 History tablet,extended release 24 hr oxycodone myristate 9 mg capsule 9 mg PO Q12H PRN Pain 02/20/25 02/20/25 Unknown History sprinkle extended release 12 hr(DON'T CRUSH) (Xtampza ER) rivaroxaban 20 mg tablet (Xarelto) 20 mg PO BEDTIME 02/20/25 02/20/25 Unknown History romosozumab-aqqg 210 mg/2.34 210 mg subcut QMONTH 02/20/25 02/20/25 01/26/25 History mL(105 mg/1.17 mL x2)subcutaneous syringe (Evenity) vibegron 75 mg tablet (Gemtesa) 75 mg PO DAILY 02/20/25 02/20/25 02/19/25 History Physical Exam Vital Signs: Vital Signs: Last Vital Signs Temp 97.9 F 02/21/25 11:26 Pulse 81 02/21/25 11:26 Resp 17 02/21/25 11:26 BP 154/68 H 02/21/25 11:26 Pulse Ox 96 02/21/25 11:26 O2 Del Method Room Air 02/21/25 11:26 BMI result Body Mass Index 38.3 GENERAL APPEARANCE: in no acute distress, pleasant. NECK: no carotid bruit, no jugular venous distention. SKIN: no suspicious lesions, warm and dry. HEART: no murmurs, regular rate and rhythm. LUNGS: clear to auscultation bilaterally. ABDOMEN: soft, nontender. EXTREMITIES: Bruising lateral aspect of the right leg. Right arm has dressing on it. PERIPHERAL PULSES: equal. NEUROLOGIC: No gross deficits, AAO X 3 Objective Labs and Meds 02/21/25 06:37 02/21/25 06:37 Lab results: Laboratory Results - last 24 hr 02/20/25 02/21/25 18:30 06:37 WBC 16.6 H 12.3 H RBC 3.92 L 3.90 L Hgb 12.1 12.2 Hct 35.8 L 36.4 L MCV 91.3 93.3 MCH 30.9 31.3 MCHC 33.8 33.5 RDW 14.0 14.3 Plt Count 270 271 MPV 9.9 10.4 Immature Gran % (Auto) 0.5 H 0.5 H Neut % (Auto) 79.8 H 73.4 H Lymph % (Auto) 9.7 L 13.6 L [place] % (Auto) 9.0 9.2 Eos % (Auto) 0.6 2.9 Baso % (Auto) 0.4 0.4 Lymph # (Auto) 1.6 1.7 [place] # (Auto) 1.5 H 1.1 Eos # (Auto) 0.1 0.4 Baso # (Auto) 0.1 0.1 Abs Immat Gran (auto) 0.08 H 0.06 H Absolute Neuts (auto) 13.3 H 9.1 H Absolute Nucleated RBC 0.000 0.000 Nucleated RBC % (auto) 0.0 0.0 Sodium 146 H Potassium 3.9 Chloride 110 H Carbon Dioxide 27 Anion Gap 13 BUN 9 Creatinine 0.68 Estim Creat Clear Calc 52.1 Estimated GFR > 60 Random Glucose 110 Calcium 8.7 Magnesium 1.8 Assessment and Plan (1) Syncope: Status: Acute Plan 89-year-old female presenting for syncope. She did not have any prodrome before she passed out. She does not drink water. Her blood pressure was quite elevated but it is improving slowly. She was not taking atenolol and metoprolol and was only taking atenolol. She had some hair loss after metoprolol and apparently was changed to atenolol by her contact center engineer. Check orthostatic vital signs. Encourage hydration. We will do an echocardiogram tomorrow. Continue to monitor on telemetry. Thank you for allowing me to participate in the care of your patient. Please feel free to contact me if you have any questions. Procedures Date of Service Date of Service: 02/21/25
--- NOTE | 2025-02-21 14:36 | MHC.CM.PN ---
Sylwia 02/21/25, Pt lives alone, she has [employer] services from [facility] 2 days a week to assist with housekeeping, she is able to do personal care independently. PCP is confirmed: Allison Ham, HCP is on file and confirmed: Maureen. Pt. does not use DME, she has a walker at home. Family to transport home at DC, DCP: home with services, CM to follow for DC needs.
[2025-02-22] VITALS (9 sets, daily range): BP systolic 120–170; BP diastolic 66–98; PULSE 62–68; RESP 14–20; TEMP 36.2–36.8; O2SAT 94–98
--- NOTE | 2025-02-22 07:00 | CA_ITS ---
Transthoracic Echocardiogram Patient (Last, First, Middle): Brenda Wolf M Gender: Female Date of : 1935 Age: 89 Procedure Date: 02/22/2025 Procedure Type: Transthoracic [place] [facility] [place]: 149.86 cm Weight: 83.01 kg BSA: 1.78 m2 Heart Rate: 64 bpm BP: 160 / 70 mmHg Stoker Installation Mechanic: Referring MD: Maite Casey MD Skein Winder: Shahram Quintana MD Symptoms: Syncope and collapse Study Quality: Adequate w/Contrast ECG Rhythm: Sinus Conclusions: - 1. Normal LV ejection fraction 60 65% with mild LVH with grade 2 diastolic dysfunction 2. Moderately dilated left atrium 3. Normal cardiac valvular Dopplers 4. No gross pericardial effusion Findings Procedure Information Contrast agent, definity, is being given per protocol without apparent complications. Left Ventricle Normal left ventricular size and systolic function. There is mildly increased left ventricular wall thickness. The visually estimated ejection fraction is between 60-65%. Spectral Doppler is indicative of a pseudonormal filling pattern. E/E prime ratio is >15, consistent with elevated filling pressures. Evidence suggests grade II (moderate) diastolic dysfunction. Right Ventricle Normal right ventricular cavity size and systolic function. Atria The left atrium is moderately dilated. The right atrium is normal in size. Aortic Valve The aortic valve structure and function is likely normal. There is no aortic valve stenosis. There is no aortic valve regurgitation. Mitral Valve There is mild posterior mitral leaflet thickening. There is trace mitral valve regurgitation. There is no mitral valve stenosis. Pulmonic Valve The pulmonic valve was not well visualized. Tricuspid Valve Likely normal tricuspid valve structure and function. Tricuspid regurgitation envelope is inadequate for calculation of right ventricular systolic pressure. Normal right atrial pressure. Great Vessels The aorta was not well visualized. The pulmonary artery was not well visualized. Moderate plaque is seen in the sino tubular ridge. Venous The inferior vena cava is normal in size and collapses greater than 50% with inspiration. Pericardium/Pleural There is no evidence of pericardial effusion. Prior Study Comparison Changes noted compared to prior study dated: 01/07/2024. Mild LVH and diastolic dysfunction was noted under started Measurements 2D Linear Measurements IVSd: 1.24 0.6-0.9/0.6-1.0 cm LVIDd: 3.93 3.9-5.3/4.2-5.9 cm LVIDd Index: 2.21 2.4-3.2/2.2-3.1 cm/m2 LVIDs: 2.58 2.0-3.6 cm LVPWd: 1.25 0.7-1.1 cm LA Diam: 4.00 2.7-3.8/3.0-4.0 cm LAIDs Index: 2.25 1.5-2.3 cm/m2 LV Mass: 212.07 67-162/88-224 g LV Mass Index: 119.14 43-95/49-115 g/m2 LVOT Diam: 2.00 3.0+(-)1.3 cm 2D Systolic Function EF 4C: 61.70 >55% EF 2C: 60.60 >55% EF BiP: 60.80 >55% Mitral Valve MV Pk E: 1.11 MV PK A: 0.94 MV Decel Time: 185.00 E/A: 1.20 E'Lateral: 6.64 E'Medial: 7.18 E/E' Med: 15.50 E/E' Lat: 16.70 PHT: 54.00 MVA PHT: 4.07 Decel Lynn: 6.04 Aortic Valve AoV Pk Jhonny: 1.32 AoV Mn Jhonny: 0.87 AoV VTI: 0.37 AoV Pk Grad: 7.00 Aov Mn Grad: 4.00 NICOLAS Cont.VTI: 1.99 LVOT LVOT Pk Jhonny: 0.82 LVOT Mn Jhonny: 0.55 LVOT VTI: 0.24 LVOT Pk Grad: 3.00 LVOT Mn Grad: 1.00 LVOT Diam: 2.00 LVOT Area: 3.14 Diastolic Function MV Pk E: 1.11 MV Pk A: 0.94 E/A: 1.20 E'Medial: 7.18 E/E' Med: 15.50 E' Laterial: 6.64 E/E' Lat: 16.70 Tricuspid Valve TR Pk Jhonny: 1.64 TR Pk Grad: 11.00 Great Vessels Aorta Sinus of Valsalva: 2.90 2.0-3.5 cm Pulmonary Valve PV Pk Jhonny: 0.99 Peak PV Grad: 4.00 Updated in Other Vendor System with Status of Final Shahram Quintana MD electronically signed on 02/22/2025 11:59:19 AM with status of Final
[2025-02-22] MEDS: 0.9 % Sodium Chloride Flush 3 ML SYRINGE IVFLUSH (08:34)
[2025-02-22] MEDS: Metoprolol Succinate ER 50 MG TAB.ER.24H PO (08:35)
[2025-02-22] MEDS: Fluticasone/Vilanterol 200/25 BLST.W.DEV 1 PUFF INHALE (09:00)
--- NOTE | 2025-02-22 10:33 | P.PNCA_ITS ---
Subjective Subjective Date of Service: 02/22/25 Principal diagnosis: Syncope Interval history: Overnight patient has had no symptoms. No overnight arrhythmias or significant pauses. Blood pressure is still slightly elevated. Review of Systems Review of Systems Yes all other systems are reviewed and are negative Physical Exam Vital Signs: Last Vital Signs Temp 97.1 F 02/22/25 08:00 Pulse 68 02/22/25 09:03 Resp 14 02/22/25 09:03 BP 152/74 H 02/22/25 08:00 Pulse Ox 98 02/22/25 08:00 O2 Del Method Room Air 02/22/25 08:00 BMI result Body Mass Index 38.3 GENERAL APPEARANCE: in no acute distress, pleasant. NECK: no carotid bruit, no jugular venous distention. SKIN: no suspicious lesions, warm and dry. HEART: no murmurs, regular rate and rhythm. LUNGS: clear to auscultation bilaterally. ABDOMEN: soft, nontender. EXTREMITIES: Bruising lateral aspect of the right leg. Right arm has dressing on it. PERIPHERAL PULSES: equal. NEUROLOGIC: No gross deficits, AAO X 3 Objective Labs and Meds 02/21/25 06:37 02/21/25 06:37 Lab results: Laboratory Results - last 24 hr 02/22/25 06:30 Total Creatine Kinase 216 H Progress Note: A&P Assessment and plan (1) Syncope: Status: Acute Assessment and Plan: Syncope of unclear origin but it appears to be mostly orthostatic from patient's presentation. Although this is not been documented. Blood pressure is elevated. Will check orthostatic vitals again to see if there was any significant drop that would changer fixer. If none then will require outpatient monitoring with a event monitor. This was discussed with her. She is encouraged to participate in orthostatic precautions also participate in aggressive oral fluid intake of at least 60 oz. She says she does not drink adequately. Monitor blood pressure at home closely. (2) Paroxysmal A-fib: Status: Acute Assessment and Plan: Prior history of paroxysmal atrial fibrillation without any obvious clinical recurrence at this point in time. Continue current therapy. Will follow up as an outpatient. Thank you for allowing me to partake in her care Time Spent With Patient Time: Total time managing care of this patient today ____ minutes. Progress Note: Quality Stroke Does the patient have a stroke diagnosis?: No Procedures Date of Service Date of Service: 02/22/25
--- NOTE | 2025-02-22 10:47 | P.PNIM_ITS ---
Subjective Subjective Date of Service: 02/22/25 Interval History: f/u syncope with fall resulting in signficant injury with bruses all arm, but no head injury and h as no recollection of events No arrythmia noted on monitor, has right foot pain making ambulation difficult, xray no fracture Physical Exam 2 Vital Signs: Vital Signs: Last Vital Signs Temp 97.1 F 02/22/25 08:00 Pulse 68 02/22/25 09:03 Resp 14 02/22/25 09:03 BP 152/74 H 02/22/25 08:00 Pulse Ox 98 02/22/25 08:00 O2 Del Method Room Air 02/22/25 08:00 BMI result Body Mass Index 38.3 General: AO X 3, no acute distress Resp: CTA bilateral CVS: S1,S2,RRR GI: +BS, NT, no distention Skin: bruses on left arm tears on right arm with dressing in place Neuro: motor grossly intact Psych: appropriate affect Objective Data Active Medications Acetaminophen (Acetaminophen 325 Mg Tablet) 975 mg PO Q6H PRN PRN Reason: Pain, Mild 1-3,fever,headache Last Admin: 02/22/25 03:49 Dose: 975 mg Documented By: YINKA Amlodipine Besylate (Amlodipine Besylate 5 Mg Tablet) 5 mg PO DAILY [facility]; Protocol Last Admin: 02/22/25 08:35 Dose: 5 mg Documented By: DANY Atorvastatin Calcium (Atorvastatin Calcium 10 Mg Tablet) 10 mg PO BEDTIME [facility] Last Admin: 02/21/25 20:09 Dose: 10 mg Documented By: YINKA Calcium Carbonate (Calcium Carbonate 750 Mg Tab.Chew) 750 mg PO Q4H PRN PRN Reason: Heartburn Fluticasone Propionate (Fluticasone Propionate Nasal 16 Gm [place]) 1 spray NOSTRIL-B BID [facility] Last Admin: 02/22/25 08:35 Dose: 1 spray Documented By: DANY Fluticasone/Vilanterol (Fluticasone/Vilanterol 200/25 Blst.W.Dev) 1 puff INHALE RDAILY [facility] Last Admin: 02/22/25 09:00 Dose: 1 puff Documented By: SRINATH Ipratropium [place] (Ipratropium [place] Benjamin 0.03 % 30 Ml [place]) 2 spray NOSTRIL-B Q12H [facility] Last Admin: 02/21/25 15:37 Dose: 2 spray Documented By: JOHANNE Losartan Potassium (Losartan Potassium 50 Mg Tablet) 100 mg PO DAILY [facility]; Protocol Last Admin: 02/22/25 08:35 Dose: 100 mg Documented By: DANY Magnesium Hydroxide (Milk Of Magnesia 30 Ml Oral.Susp) 30 ml PO DAILY PRN PRN Reason: Constipation Melatonin (Melatonin 3 Mg Tablet) 6 mg PO BEDTIME PRN PRN Reason: Insomnia Last Admin: 02/21/25 23:00 Dose: 6 mg Documented By: YINKA Comments: requested for sleep Metoprolol Succinate (Metoprolol Succinate Er 50 Mg Tab.Er.24h) 50 mg PO DAILY [facility]; Protocol Last Admin: 02/22/25 08:35 Dose: 50 mg Documented By: DANY Non-Formulary Medication (Vibegron [Gemtesa]) 75 mg PO DAILY [facility] Omeprazole (Omeprazole 20 Mg Capsule.Dr) 20 mg PO DAILY@0630 [facility] Last Admin: 02/22/25 05:58 Dose: 20 mg Documented By: YINKA Oxycodone HCl (Oxycodone Hcl Immed Release 5 Mg Tablet) 5 mg PO Q8H PRN PRN Reason: chronic pain Last Admin: 02/21/25 20:15 Dose: 5 mg Documented By: YINKA Rivaroxaban (Rivaroxaban 20 Mg Tablet) 20 mg PO BEDTIME [facility] Last Admin: 02/21/25 20:09 Dose: 20 mg Documented By: YINKA Sertraline HCl (Sertraline Hcl 100 Mg Tablet) 100 mg PO DAILY [facility] Last Admin: 02/22/25 08:35 Dose: 100 mg Documented By: DANY Sodium Chloride (0.9 % Sodium Chloride Flush 3 Ml Syringe) 3 ml IVFLUSH QSHIFT [facility] Last Admin: 02/22/25 08:34 Dose: 3 ml Documented By: DANY Vitamin D (Cholecalciferol (Vitamin D3) 25 Mcg Tablet) 50 mcg PO DAILY [facility] Last Admin: 02/22/25 08:35 Dose: 50 mcg Documented By: DANY Labs 02/21/25 06:37 02/21/25 06:37 Labs: Laboratory Results - last 24 hr 02/22/25 06:30 Total Creatine Kinase 216 H Microbiology Microbiology Results: Microbiology 02/20/25 13:40 Blood Culture - Preliminary Blood - Venous No growth after 24 hours. 02/20/25 12:37 Blood Culture - Preliminary Blood - Venous No growth after 24 hours. Assessment and Plan (1) Syncope: Status: Acute Plan 89 years old woman with past medical history significant for hypertension, COPD -no home oxygen, AFib on Xarelto and chronic back pain on oxycodone presented with syncope Syncope, possible cardiac. No prodrome symptoms. Telemetry. Orthostatic vitals. Hold Stampza ER/oxycodone, gabapentin and trazodone. Patient is on 2 different beta-blockers: Atenolol and metoprolol. Hold atenolol and continue metoprolol for now. Check TTE. Cardiology consult. Orthostatic BP Elevated total CK, + blood in urine (normal RBC). Mild rhabdomyolysis. Renal function is normal. Ringer lactate 500 mg IV now then 80 mL/hour. Encourage oral hydration. Continue to monitor total CK. Leukocytosis, likely secondary to above. IV fluids. No other SIRS criteria. Blood culture obtained in the ED -following resolved. Down from 16 to 12 Left groin hip pain. Hip and pelvic x-rays negative for fractures. Likely secondary to recent trauma/muscular. Continue oxycodone. PAF currently rate and rhythm controlled. Continue metoprolol and Xarelto Multiple abrasions to extremities. Local care daily. hypertension. Continue metoprolol, amlodipine, andContinue losartan. COPD. No acute exacerbation. Continue home inhalers. Overeactive bladder. Continue Gemtesa. Depression. Continue sertraline. Hyperlipidemia. Continue statin. Chronic back pain/history of spinal surgery due to spinal stenosis. Continue oxycodone immediate release 5 mg every 8 hours as needed. DVT prophylaxis: Xarelto Code status: Full PT eval Quality Stroke Does the patient have a stroke diagnosis?: No VTE Prior VTE?: No VTE Risk Level:: Medical - moderate - high VTE Device Contraindication: Treatment Not Indicated VTE Drug Contraindication: N/A - Med Ordered
--- NOTE | 2025-02-22 12:55 | MHC.CM.PN ---
Pt changed to inpatient, IMM given 02/22. This CM met with pt and her daughter present at bedside to discuss her discharge plan. Pt states she would like to return home with new VNA services, and would not want to go to [facility]. Pts preferred [facility] agency is [facility], referral placed through [facility], awaiting agency acceptance.
[2025-02-22] MEDS: oxyCODONE HCl Immed Release 5 MG TABLET PO (20:48)
[2025-02-23] VITALS: BP 154/78; PULSE 65; RESP 20; TEMP 36.8; O2SAT 95
[2025-02-23] MEDS: Ipratropium Bromide Nas 0.03 % 30 ML SPRAY 2 SPRAY NOSTRIL-B (03:30)
[2025-02-23 04:00] VITALS: BP 166/80; PULSE 63; RESP 20; TEMP 37.4; O2SAT 94
[2025-02-23 07:50] VITALS: BP 146/54; PULSE 61; RESP 18; TEMP 36.6; O2SAT 96
[2025-02-23] MEDS: Metoprolol Succinate ER 50 MG TAB.ER.24H PO (07:51)
[2025-02-23 08:45] VITALS: PULSE 61; RESP 18; O2SAT 96
[2025-02-23] MEDS: Fluticasone/Vilanterol 200/25 BLST.W.DEV 1 PUFF INHALE (08:45)
--- NOTE | 2025-02-23 09:41 | PM.DS ---
DS: Providers Provider Date of Service: 02/23/25 Date of admission: 02/22/25 11:24 Date of discharge: 02/23/25 Primary care physician: Allison Ham PA-C Consults: 02/20/25 14:37 Consult to Cardiology Routine Consulting Provider: [facility] Reason for consultation: Syncope Has provider been notified: No DS: Diagnosis Discharge Diagnosis (1) Syncope: Status: Acute DS: Summary Hospital Course Hospital Course: admission hpi by Dr. Maite Casey Chief Complaint: Fainting Brenda Wolf is a very pleasant 89 years old woman with past medical history significant for hypertension, COPD -no home oxygen, AFib on Xarelto and chronic back pain on oxycodone presents to the ED after she lost consciousness last night around 21:00. She did not remember having any symptoms before and after losing consciousness such as palpitations, dizziness, chest pain or shortness on breath. She denied hitting her head but did hit her legs and arms. She does complain of left growing pain upon flexing it. Upon regaining consciousness she was on the floor where she is unable to tell for how long. Patient mentioned that she has not been feeling well over the last 2 days. No urinary incontinence reported. Patient denied any headache, abdominal pain, nausea, vomiting, diarrhea or pain with urination. She denied double vision, speech difficulty or focal weakness. She is not taking diuretics. She does take only her immediate release oxycodone for chronic pain on gabapentin. She has not been taking her extended release oxycodone because it does not make her feel good. Daughter who was at bedside commented that last she underwent an MR right and received IV contrast. She did not take her home medications this morning. She is a former tobacco smoker and denies alcohol during holidays only. In the ED, was found to have stable vital signs. Her blood pressure is increasing. Last BP is 199/67. Blood workup showed leukocytosis of 21.3. There is no lactic acidosis. Hemoglobin and platelets are normal. Venous blood gas showed no respiratory acidosis. Electrolytes are unremarkable. BUN is 16 and creatinine 0.76. Lipase is normal. AST is 39, ALT 20, alk-phos 105 and total CK is 621. BNP is 146. Urinalysis showed trace blood and RBCs 0-2. There is no evidence of UTI. Viral testing for COVID-19, influenza and RSV is negative. Head CT scan without contrast showed no acute findings. C-spine CT showed no fractures or dislocations. Hip and pelvis x-ray showed no acute findings. CXR is negative. ECG showed normal sinus rhythm, heart rate is 74 beats per minute without ischemic changes. ED tx: Ceftriaxone 1 g IV, LR 80 mL/hour. Hospital course; Patient presented with a syncopal episode as detailed above, the etiology of the syncope is not certain, work up in the hospital has revealed no arrhymaia. CT head, C-spine, tru of hip and foot demonstrate no acute pathology. Ortho BP have been negative. Patient was hydrated and monitored on cardiac telemetry and no maligant arrythmia noted. Cardiology saw and had echocardiogram showin. Normal LV ejection fraction 60 65% with mild LVH with grade 2 diastolic dysfunction 2. Moderately dilated left atrium 3. Normal cardiac valvular Dopplers 4. No gross pericardial effusion Patient was evaluated by Physical therapy and recommended for STR, however she prefers going home and with home health services. Elevated total CK, 621-->216 Leukocytosis, likely secondary to above. IV fluids. No other SIRS criteria. Blood culture obtained in the ED -following resolved. Down from 16 to 12 Left groin hip pain. Hip and pelvic x-rays negative for fractures. Likely secondary to recent trauma/muscular. Tylenol PRN PAF currently rate and rhythm controlled. Continue metoprolol and Xarelto Multiple abrasions to extremities. Local care daily. hypertension. Continue metoprolol, amlodipine, and losartan. COPD. No acute exacerbation. Continue home inhalers. Overeactive bladder. Continue Gemtesa. Depression. Continue sertraline. Hyperlipidemia. Continue statin. Chronic back pain/history of spinal surgery due to spinal stenosis. dispo: home with vna Time Attestation Discharge Coordination Time (in mins): 45 Quality: Safe Use of Opioids Does Pt have an Active Cancer Diagnosis on the Problem List?: No Quality: Stroke Does the patient have a stroke diagnosis?: No Physical Exam Vital Signs: Vital Signs: Last Vital Signs Temp 97.9 F 02/23/25 07:50 Pulse 61 02/23/25 08:45 Resp 18 02/23/25 08:45 BP 146/54 H 02/23/25 07:50 Pulse Ox 96 02/23/25 07:50 O2 Del Method Room Air 02/23/25 07:50 BMI result Body Mass Index 38.3 General: AO X 3, no acute distress Resp: CTA bilateral CVS: S1,S2,RRR GI: +BS, NT, no distention Skin: bruses on left arm tears on right arm with dressing in place Neuro: motor grossly intact Psych: appropriate affect DS: Data Data Completed and Pending Labs on day of discharge: Preliminary micro results at discharge 02/20/25 13:40 Blood Culture - Preliminary Blood - Venous No growth after 48 hours. 02/20/25 12:37 Blood Culture - Preliminary Blood - Venous No growth after 48 hours. Discharge Plan Discharge Anticipated Discharge Date/Time: 02/23/25 09:41 Patient Disposition: Home Health Service Discharge Diagnosis: Syncope, fall Referrals: [facility] [Outside] - 1 Week Allison Ham PA-C [Primary Care Provider, Endocrinology] - 1 Week Discharge Medications: Continued fluticasone propionate 50 mcg/actuation spray,suspension 1 spray intranasal BID Qty: 16 11RF Rx Instructions: administer into each nostril trazodone 100 mg tablet 100 mg PO BEDTIME Qty: 90 3RF amlodipine 5 mg tablet 5 mg PO DAILY Qty: 90 3RF ipratropium bromide 21 mcg (0.03 %) spray,non-aerosol 2 spray intranasal Q12H Qty: 30 4RF nystatin 100,000 unit/gram powder 1 appl topical BID PRN (Reason: rash) Qty: 60 3RF oxycodone 5 mg tablet 5 mg PO Q8H PRN (Reason: Pain) 28 Days Qty: 84 0RF atenolol 25 mg tablet 25 mg PO DAILY Qty: 90 3RF atorvastatin [Lipitor] 10 mg tablet 10 mg PO BEDTIME Qty: 90 0RF pantoprazole 40 mg tablet,delayed release (DR/EC) 40 mg PO DAILY@0630 Qty: 90 0RF metoprolol succinate 50 mg tablet extended release 24 hr 50 mg PO DAILY Xarelto 20 mg tablet 20 mg PO BEDTIME fluticasone furoate-vilanterol [Breo Ellipta] 200-25 mcg/dose blister with device 1 ea INHALATION DAILY Xtampza ER 9 mg cap,sprinkl,ER12hr(DONT CRUSH) 9 mg PO Q12H PRN (Reason: Pain) Evenity 210mg/2.34mL ( 105mg/1.17mLx2) syringe 210 mg SUBCUT QMONTH Rx Instructions: Next dose 02/23/25 Gemtesa 75 mg tablet 75 mg PO DAILY bacitracin 500 unit/gram ointment 1 appl topical Q8H PRN (Reason: Wound Care) Rx Instructions: Apply to affected area on left great toe three times a day until infection resolved. gabapentin 300 mg capsule 300 mg PO BID PRN (Reason: Pain) albuterol sulfate 90 mcg/actuation HFA aerosol inhaler 2 puff PO Q6H PRN (Reason: wheezing) cholecalciferol (vitamin D3) 50 mcg (2,000 unit) tablet 50 mcg PO DAILY sertraline 100 mg tablet 100 mg PO DAILY Qty: 90 2RF losartan 100 mg tablet 100 mg PO DAILY Qty: 90 3RF hydrocortisone-pramoxine 2.5-1 % cream 1 appl MD BID PRN (Reason: hemorrhoids) Qty: 30 4RF acetaminophen 500 mg capsule 1,000 mg PO Q6H 10 Days Qty: 30 0RF (DME) walker Misc See Rx Instructions .Route Qty: 1 0RF Rx Instructions: A rolling walker with seat use daily As directed Discharge Orders: Discharge Order (Routine); Ordered 02/23/25 Ordered By: Allan Ruiz Diet: Advance to usual diet Activity on Discharge: As tolerated Stand Alone Forms: Patient Portal Discharge page Print Language: Lithuanian Care Plan Goals: recovery from syncope, Health Concerns: syncope uti Plan of Treatment: Drink pleanty of fluid at least 60 oz a day follow up with Dr. Quintana for further testing Follow up with your primary care doctor in a week, call for appointment Assessment: see rashawn
[2025-02-23 11:20] VITALS: BP 164/62; PULSE 72; RESP 18; TEMP 36.7; O2SAT 96
--- NOTE | 2025-02-23 11:20 | W.MHC.F2F ---
Service Date Service Date: 02/23/25 Encounter Date of encounter: 02/23/25 Encounter: 40 Reasons for Services Signs and symptoms assessed: weakness and fall Reason for fci: CV/CP assess and/or care, neurological assessment and teach disease management Reason for physical therapy: home safety and mobility, therapeutic exercises and gait/transfer training Homebound: Leaving the home is medically contraindicated at this time without the asist of a device and/or another person due th the listed conditions above and below. Reason homebound: fall risk related to blood pressure changes Homebound supporting statement: Homebound due to fall risk, fall due to syncope , high risk for fall and therefore needs the assistrance of another person Certification: Based on the above findings, I certify that this patient is confined to the home and needs intermittent fci care, physical therapy and/or speech therapy, or continues to need occupational therapy. The patient is under my care, and I have initiated the establishment of the plan of care. The patient will be followed by a physician who will periodically review the plan of care. Time Spent With Patient Time: Total time managing care of this patient today ____ minutes.
--- NOTE | 2025-02-23 11:46 | MHC.CM.PN ---
Pt is medically cleared for discharge home today with new [facility] services, pts daughter will transport her home today. Pt is aware and in agreement with the discharge plan.
== END 2025-02-23 13:57 | disposition home health service (06) | DRG 312 ==
LOC: HO.ED 13:29 → HO.EDOVER 13:52 → HO.IMC 17:20
PROVIDERS: Admitting Provider Internal Medicine; Emergency Provider Emergency Medicine; PCP Physician Assistant; Visit Provider Internal Medicine
DX: R55 Syncope and collapse (principal); M62.82 Rhabdomyolysis; G89.29 Other chronic pain; M54.9 Dorsalgia, unspecified; I48.0 Paroxysmal atrial fibrillation; J44.9 Chronic obstructive pulmonary disease, unspecified; N32.81 Overactive bladder; E78.5 Hyperlipidemia, unspecified; I11.9 Hypertensive heart disease without heart failure; F32.A Depression, unspecified; Z20.822 Contact with and (suspected) exposure to COVID-19; Z87.891 Personal history of nicotine dependence; Z79.01 Long term (current) use of anticoagulants; Z79.51 Long term (current) use of inhaled steroids; Z79.891 Long term (current) use of opiate analgesic; Z79.899 Other long term (current) drug therapy
CPT/HCPCS: 36415; 70450; 71045; 72125; 73502; 73630; 80048; 80076; 81001; 82550; 82803; 83605; 83690; 83735; 83880; 84484; 85025; 87040; 87637; 93005; 93306; 94640; 99222; 99285; J0696; J7120; Q9957

== ENCOUNTER → 2025-02-20 10:31 | Outpatient (BNV) | payer MEDICARE, OTHER, SELFPAY | PROVIDERS: Admitting Provider Internal Medicine; Emergency Provider Emergency Medicine; PCP Physician Assistant; Visit Provider Radiology Diagnostic Radiology | DX: M43.12 Spondylolisthesis, cervical region (principal); R55 Syncope and collapse; M25.552 Pain in left hip | CPT/HCPCS: 70450; 71045; 72125; 73502 ==

== ENCOUNTER 2025-02-20 13:45 | Outpatient (BNV) | payer MEDICARE, OTHER, SELFPAY | END 2025-02-21 14:11 | PROVIDERS: Admitting Provider Internal Medicine; Emergency Provider Emergency Medicine; PCP Physician Assistant; Visit Provider Radiology Diagnostic Radiology | DX: M20.11 Hallux valgus (acquired), right foot (principal) | CPT/HCPCS: 73630 ==

== ENCOUNTER → 2025-02-20 13:45 | Outpatient (BNV) | payer MEDICARE, OTHER, SELFPAY | PROVIDERS: Admitting Provider Internal Medicine; Emergency Provider Emergency Medicine; PCP Physician Assistant; Visit Provider Internal Medicine | DX: R55 Syncope and collapse (principal) | CPT/HCPCS: 99223; 99232; G0180 ==

== ENCOUNTER → 2025-02-20 13:45 | Outpatient (BNV) | payer MEDICARE, OTHER, SELFPAY | PROVIDERS: Admitting Provider Internal Medicine; Emergency Provider Emergency Medicine; PCP Physician Assistant; Visit Provider Internal Medicine Cardiovascular Disease | DX: R55 Syncope and collapse (principal) | CPT/HCPCS: 93010; 99223 ==

== ENCOUNTER → 2025-02-22 07:00 | Outpatient (BNV) | payer MEDICARE, OTHER, SELFPAY | PROVIDERS: Admitting Provider Internal Medicine; Emergency Provider Emergency Medicine; PCP Physician Assistant; Visit Provider Internal Medicine Cardiovascular Disease | DX: I51.7 Cardiomegaly (principal); I51.89 Other ill-defined heart diseases | CPT/HCPCS: 93306 ==

== ENCOUNTER 2025-03-02 11:06 | Outpatient (AMB) | payer MEDICARE, OTHER, SELFPAY ==
--- NOTE | 2025-03-02 11:34 | AM.OFFVISNUR ---
Intake Visit Reasons: Evenity #8 Allergies bee pollen Allergy (Unknown, Verified 02/20/25 10:39) Unknown house dust mite Allergy (Unknown, Verified 02/20/25 10:39) Unknown adhesive tape Adverse Reaction (Intermediate, Verified 02/20/25 10:39) Rash Office Meds romosozumab-aqqg 210 mg/2.34 mL(105 mg/1.17 mL x2)subcutaneous syringe Performing Provider: Rommel Lopez MD Performing Location: [facility] [place] End[facility] Administered by: Rosalinda Gimenez RN on 03/02/25 11:34 Dose Route Admin Location Dispensed Lot Number Expiration Date NDC Collection Teller 210 mg subcut bilateral upper arms 2.34 mL [id number] 04/27/27 12355-565-07 [employer] Total Dispensed Waste 2.34 mL 0 % Comments: Patient tolerated injection well and denied any adverse reactions to previous injections. Patient reporting she did have a fall last week but did not fracture or break any bones. Scheduled for f/u in x4 weeks. Assessment & Plan Assessment & Plan Orders: Orders AMB Romosozumab Injection Patient Supplied Today M81.0 - Age-related osteoporosis without current pathological fracture Coding
--- OUTSIDE RECORDS SUMMARY | 2025-03-02 11:54 | XMS_ITS | Patient Health Record ---
Author Organization [facility] Address [address] [place] [address] Care Team Providers Care Seaming Machine Operator Name Role Phone Allison Ham Primary Care Provider Nyla Sharma Unavailable [phone] Allergies Allergen (clinical drug ingredient) Drug/Non Drug [...] MG as directed Orally 06/28/2020 Active Ipratropium Sheldon 0.06 % USE 1 SPRAY IN EACH [...] fentaNYL Not-Taking traMADol HCl Not-Serge ing Nasal [place] Active Meloxicam Not-Taking Vitamin D 400 UNIT [...] primary osteoarthritis of the ankle and/or foot (569523481) 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 Plan Of Treatment Pending Test Test Name Order Date MRI : Foot, left 06/28/2020 X ray : Foot, left 3V 05/25/2020 X ray : Foot, right 3V 07/19/2017 X ray : Foot, right 3V 06/19/2019 [id number] NAIL, 6 OR MORE 03/07/2018 [id number]-Uosemazh Plate 06/25/2011 78948- Debride <25 sq cm 07/11/2011 13695,[id number] TENDON SHEATH/LIGAMENT 1 08/19/2018 51292,[id number] TENDON SHEATH/LIGAMENT 0 03/07/2018 56366,[id number] TENDON SHEATH/LIGAMENT 1 04900,J5336-TYM TENDON SHEATH/LIGAMENT 0 01/06/2020 61023,C5566-GNC TENDON SHEATH/LIGAMENT 0 04/12/2020 60658- Unna Boot 06/19/2019 X ray : Ankle, right 3V 06/19/2019 Next Appt Details Provider Name:Nyla wang, 04/09/2025 10:30:00 AM, [address] [place] [address], [phone], Insurance Providers Payer Name Payer Address Payer Phone Subscriber Number Group Number Insured Name Patient Relationship to Insured Coverage Start Date Coverage End Date Medicare National [employer] [address] [place] [address] [id number] Brenda Wolf Self - patient is the insured [address] [place] [address] [place] [phone] [id number] Brenda Wolf Self - patient is the [...] Date(Month/Year) right foot hurting diagnosed plantar 07/17/2017 [facility] [place]- jaswinder,CAT scan, yaz, 06/15/19- 1 08/19/18 [place] Jay Crum- Spinal sten osis Sx 11/26/2017
--- OUTSIDE RECORDS SUMMARY | 2025-03-02 11:54 | XMS_ITS | Patient Health Record ---
Author Organization [facility] Address [address] [place] [address] Care Team Providers Care Wafer Mounter Name Role Phone Ling Middleton DNP Primary [...] a day for 30 day(s) Active Ipratropium [place] 0.06 % 2 sprays in e ach nostril Nasally Three times a day for 4 day(s) Active Amoxicillin 500 MG 1 capsule Orally NEEDED FOR DENTIST Active Calcium 500 MG 1 tablet Orally Once a day Active Tramadol & Dietary Manage Prod Active Vitamin D3 Ultra Potency 11277 UNIT 1 tablet Orally as directed Active [...] Problem Status W/U Status Risk Notes Problem 92450076 Rectal bleeding (K62.5) Active confirmed Problem 454589138 Gastro-esophagea l reflux disease without esophagitis (K21.9) Active confirmed Problem 99859731 Cough (R05) Active confirmed Problem 496513907 Urinary incontinence, unspecified type (R32) Active confirmed Plan Of Treatment Pending Test Test Name Order Date XR GI SERIES 07/14/2015 Insurance Providers Payer Name Payer Address Payer Phone Subscriber Number Group Number Insured Name Patient Relationship to Insured Coverage Start Date Coverage End Date MEDICARE OF [place] [address] [place] [address] [id number] KAY COLLINS Self - patient is the insured [employer] [address] [place] [phone] [id number] KAY COLLINS Self - patient is the insured Medical (General) History Medical History History ICD Code EGD/colonoscopy 01/03/2006. No evidence of Morse's esophagus. Hyperplastic colon polyp. Seasonal allergic rhinitis hypertension hypercholesterolemia scoliosis arthritis depression Surgical History Surgery Date(Month/Year) Vocal cord polyp 2006 Multiple back and neck surgeries rotator cuff surgery both knee replacement left
--- OUTSIDE RECORDS SUMMARY | 2025-03-02 11:54 | XMS_ITS | Encounter Summary ---
Author Organization [facility] Address [address] [place] [address] Phone Care Team Providers Care Honeycomb Decapper Name Role Phone Ne Cho MD Unavailable [phone] Unknown, Unknown Primary Care Provider Ling Blanc NP Primary Care Provider + Reason for Referral * Consultation (Elective) - Closed Specialty Diagnoses / Procedures Referred By Contac t Referred To Contact Pulmonary Disease Diagnoses Wheezing Ling Middleton NP Phone: tel: fax: [address] [address] Phone: tel: Referral ID Status Reason Start Date Expiration Date Visits Re quested Visits Authorized [id number] Closed 06/26/2021 06/26/2022 1 1 Encounter Details Date Type Department Care Team (Late st Contact Info) Description 06/26/2021 Transcribe Orders [facility] Pulmonary, Allergy and Critical Care Medicine [address] [place], [place] [address] Ling Middleton NP [address] [place] [address] [phone] Wheezing (Primary Dx) Social History Tobacco Use Types Packs/Day Years Used Date Smoking Tobacco: Former Cigarettes 1 8 - 1966 Smokeless Tobacco: Never Education Answer Date Recorded Are you interested in help w ith more adult education (for example, completing high school, GED, job training, learning the Swazi language, technical skills, or developing parenting skills)? [...] Associated Diagnoses Order Schedule Ambulatory referral to [facility] Pulmonology Outpatient Referral Routine Wheezing Ordered: [...] 1. Pt will explore exercise classes [facility] once cleared by spinal surgeon. 2. Pt will engage in Weight [employer] classes. documented as of this encounter Visit Diagnoses Diagnosis Wheezing- Primary documented in this encounter Additional Health Concerns Assessment Noted Time PHQ-2 Depression Total Score: 0 03/12/20 18 1:28 PM EDT documented as of this encounter Care Teams Honeycomb Decapper Relationship Specialty Start Date End Date Unknown, Unknown, MD PCP - General 06/28/21 07/04/21 Ling Middleton NP [address] [place] [phone] PCP - General Family Medicine 07/05/21 Ne Cho MD [address] [place] [address], [address] [place] [address] [email or web address] Insurance Assigned Provider 11/04/19 08/04/22 documented as of this encounter Additional Source Comments The information contained in this document represents components of the legal health record. It is not the complete legal health record.[facility]
== END 2025-03-02 11:33 | disposition home or self-care (01) ==
LOC: HO.ENCR 11:07
PROVIDERS: PCP Physician Assistant; Visit Provider Internal Medicine Endocrinology, Diabetes & Metabolism
DX: M81.0 Age-related osteoporosis without current pathological fracture (principal)

== ENCOUNTER → 2025-03-02 11:06 | Outpatient (BNVA) | payer MEDICARE, OTHER, SELFPAY | PROVIDERS: PCP Physician Assistant; Visit Provider Internal Medicine Endocrinology, Diabetes & Metabolism | DX: M81.0 Age-related osteoporosis without current pathological fracture (principal) | CPT/HCPCS: 96372; J3111 ==

== ENCOUNTER 2025-03-03 14:41 | Outpatient (AMB) | payer MEDICARE, OTHER, SELFPAY ==
--- NOTE | 2025-03-03 14:44 | MHC.PC.OV ---
Vital Signs 03/03/25 14:55 03/03/25 15:11 Height 4 ft 10 in Weight 179 lb 6 oz BMI 37.5 BP 221/95 H 170/84 H Blood Pressure Location Rt brachial Lt brachial Position Sitting Sitting Respiration 14 Pulse 86 Pulse Source Pulse Oximeter Temp 97.9 F Pulse Oximetry (%) 95 Oxygen Delivery Method Room Air Intake Visit Reasons: TCM syncope Intake Note: Emergency follow up. Passed out and had a fall. Blood pressure taking today by physical therapist, 128/77. Needs refill on atorvastatin, pantoprazole, oxycodone, and antibiotic for dental work. 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: No Allergies bee pollen Allergy (Unknown, Verified 03/03/25 14:48) Unknown house dust mite Allergy (Unknown, Verified 03/03/25 14:48) Unknown adhesive tape Adverse Reaction (Intermediate, Verified 03/03/25 14:48) Rash Medication List - Last Reconciled 03/03/25 by Allison Ham PA-C acetaminophen 1,000 mg (2 x 500 mg) PO Q6H 10 days albuterol sulfate 90 mcg/actuation 2 puffs PO Q6H PRN amlodipine 5 mg PO DAILY atenolol 25 mg PO DAILY atorvastatin (Lipitor) 10 mg PO BEDTIME bacitracin 1 appl topical Q8H PRN cholecalciferol (vitamin D3) 50 mcg PO DAILY fluticasone furoate-vilanterol 200-25 mcg/dose (Breo Ellipta) 1 ea inhalation DAILY fluticasone propionate 50 mcg/actuation 1 spray intranasal BID gabapentin 300 mg PO BID PRN hydrocortisone-pramoxine 2.5-1 % 1 appl ND BID PRN ipratropium bromide 2 sprays intranasal Q12H losartan 100 mg PO DAILY nystatin 1 appl topical BID PRN oxycodone 5 mg PO Q8H PRN 28 days oxycodone myristate CR-ER (Xtampza ER) 9 mg PO Q12H PRN pantoprazole 40 mg PO DAILY@30 rivaroxaban (Xarelto) 20 mg PO BEDTIME romosozumab-aqqg (Evenity) 210 mg subcut QMONTH sertraline 100 mg PO DAILY trazodone 100 mg PO BEDTIME vibegron (Gemtesa) 75 mg PO DAILY walker A rolling walker with seat use daily As directed Tobacco use date assessed: 01/21/25 Fall risk assessment: 1 Fall in past year Last assessed Fall Risk: 03/03/25 Dental Screening Dental Screen Date: 01/21/25 HPI TCM syncope HPI Details Pt is an 89 y/o female with past medical history significant for hypertension, COPD -no home oxygen, AFib on Xarelto and chronic back pain on oxycodone presenting today for hospital follow up. She is accompanied today by her daughter. She presented to the ED on 02/20 after syncope. She was then admitted for monitoring and then discharged on 02/23. She states that they told her it was likely dehydration. Prior to presenting to the ER she had an MRI the previous day and has been dehydrated for this and states that she has a poor water drinker at baseline. She had a leukocytosis on admission that was trending down. Total CK elevated and trending down from hospitalization. Head CT scan without contrast showed no acute findings. C-spine CT showed no fractures or dislocations. Hip and pelvis x-ray showed no acute findings. CXR is negative. ECG showed normal sinus rhythm, heart rate is 74 beats per minute without ischemic changes. Ortho BP were negative. She tells me today that from discharge she is overall feeling better. The abrasions on her extremities have healed and the bruising seems to be fading. She is overall feeling well besides having elevated blood pressure readings. She does have nursing services and physical therapy coming to her house. Today the physical therapist noted that her blood pressure was normal. Upon discharge they told her to continue with metoprolol and Xarelto for treatment of hypertension and PAF. Daughter states today that she has also been taking atenolol. Patient was previously discontinued on metoprolol by Cardiology due to possible hair loss from the metoprolol. She is still taking the amlodipine 5 mg and the losartan 100 mg daily. She is not scheduled to see Cardiology until the end of the month. She states that in regards to the fall this is very unlike her and overall her house is safe. She did get a life Alert bracelet because part of the problem after she fell and lost consciousness she felt too weak to get up off the floor and had to lay there for awhile. [facility] Medical History Left ankle swelling Generalized anxiety disorder Insomnia Major depression, recurrent, chronic Arthritis High blood cholesterol COPD (chronic obstructive pulmonary disease) Urge incontinence Joint pain Chronic back pain HTN (hypertension) Bleeding hemorrhoid Back pain with history of spinal surgery Surgical History History of back surgery History of surgery Family History Father Thrombosis Mother Diabetes Heart rate problem Social History (Updated 03/03/25 @ 15:15 by Siomara Abebe CMA) Household Members: None Housing: Assisted Living Facility Do you presently have visiting nurse or other home services: No Alcohol intake: current Alcohol intake frequency: holidays/special occasions only Alcohol type: wine Patient Tobacco Use Status: Former Tobacco user Tobacco use type: Cigarette Cigarettes Per Day: 15 Years Smoked: 10 e-Cigarette/Vaping Use: Never Used Second Hand Smoke Exposure: No service: No Current occupational status: retired Cognitive needs: No Hearing needs: Yes (hearing aids) Vision needs: No Questionnaire Thrive Questionnaire Date Thrive assessed: 02/21/25 I am a: Patient What is your living situation today?: I have a steady place to live THRIVE Score: 0 RAYNE-7 AMB Questionnaire RAYNE-7 Date RAYNE - 7 assessed: 01/29/24 Source: Developed by Drs. Rommel Olivares, Kaylee Fabian, Al Ny and colleagues, with an educational ken from [employer]. Physical exam (Primary Care) Vital Signs: Last Vital Signs Temp 97.9 F 03/03/25 14:55 Pulse 86 03/03/25 14:55 Resp 14 03/03/25 14:55 BP 170/84 H 03/03/25 15:11 Pulse Ox 95 03/03/25 14:55 Oxygen Delivery Method Room Air 03/03/25 14:55 BMI result Body Mass Index 37.5 Tobacco/Smoking Status: Tobacco use Status Tobacco use date assessed 01/21/25 03/03/25 14:45 Patient Tobacco Use Status Former Tobacco user 03/03/25 15:15 Tobacco use type Cigarette 03/03/25 15:15 e-Cigarette/Vaping Use Never Used 03/03/25 15:15 Thrive Assessment: Date of Thrive Assessment Date Thrive assessed 02/21/25 03/03/25 14:45 Const Orientation/consciousness: patient oriented x3 HENMT Ears: hearing grossly normal bilaterally Neck Thyroid: Thyroid normal Lymphatic: no lymphadenopathy noted Resp Auscultation: clear to auscultation bilaterally Cardio Rate: regular rate Rhythm: regular rhythm Heart sounds: S1 normal heart sound present and S2 normal heart sound present GI Inspection: Yes normal to inspection Palpation (GI): Soft to palpation and Other GI palpation findings present (nontender, no cva tenderness) Auscultation: normoactive bowel sounds Rectal Exam - Female: deferred Skin General skin exam: no rashes or lesions noted Neuro General: patient oriented x3, gait normal and no focal motor deficits Results Reviewed Results Reviewed: Report Number: [id number]: Total DLP = 705.00 mGy-cm CLINICAL HISTORY: fall headstrike on xarelto CT head without contrast Comparison: None Findings: Involutional change and nonspecific white matter hypodensity. No intracranial mass, midline shift, hydrocephalus, or acute hemorrhage. Orbits, paranasal sinuses, and mastoid air cells are unremarkable. No skull fracture Impression: 1. No acute findings Laboratory Tests 02/21/25 02/22/25 06:37 06:30 WBC 12.3 H RBC 3.90 L Hgb 12.2 Hct 36.4 L Plt Count 271 Estim Creat Clear Calc 52.1 Estimated GFR > 60 Random Glucose 110 Total Creatine Kinase 216 H Coding Level of Care Code TCM Mod MDM <= 14 Days Complex EM visit Add On G2211 Diagnoses Primary hypertension I10 Hypertension type: primary hypertension Elevated CK R74.8 Fall at home W19.XXXA; Y92.009 Assessment & Plan Assessment & Plan (1) HTN (hypertension): Code(s): I10 - Essential (primary) hypertension Category: Medical Qualifiers: Hypertension type: primary hypertension Qualified Code(s): I10 - Essential (primary) hypertension Plan: There was a lot of confusion today regarding her current antihypertensive regimen. Apparently she has been taking metoprolol 50 mg and atenolol 25 mg. She was supposed to be stopped on the metoprolol and switch to atenolol due to hair loss however, on discharge from the hospital she was told to resume the metoprolol so she has been taking both. She has been consistent with the losartan 100 mg and amlodipine 5 mg daily (does not tolerate higher dose due to swelling) Today I will have her stop the atenolol as she did follow up with Dermatology for the hair loss and they did not feel like this was related at all to medications. She will just be on the metoprolol and I have increased the dose to 100 mg given the elevated blood pressure reading here today. She is going to contact me with her blood pressures at home. I will do a short term follow up with her. She will continue with the losartan 100 mg and amlodipine 5 mg daily. Medications have been reconciled. Labs have been reviewed and imaging with patient. (2) Elevated CK: Code(s): R74.8 - Abnormal levels of other serum enzymes Category: Medical Plan: Trending down. We will monitor. Labs ordered today. (3) Fall at home: Code(s): W19.XXXA - Unspecified fall, initial encounter; Y92.009 - Unspecified place in unspecified non-institutional (private) residence as the place of occurrence of the external cause Category: Medical Plan: She has a life Alert bracelet now She has a follow up with Cardiology on 03/19 It was felt that the fall was related to dehydration. She did have an MRI that day and was not hydrated. Orders: Orders Comprehensive Met. Panel 03/03/25 E78.00 - Pure hypercholesterolemia, unspecified, F33.9 - Major depressive disorder, recurrent, unspecified, F41.1 - Generalized anxiety disorder, I10 - Essential (primary) hypertension, R74.8 - Abnormal levels of other serum enzymes Complete Blood Count Auto Diff 03/03/25 E78.00 - Pure hypercholesterolemia, unspecified, F33.9 - Major depressive disorder, recurrent, unspecified, F41.1 - Generalized anxiety disorder, I10 - Essential (primary) hypertension, R74.8 - Abnormal levels of other serum enzymes UA CC w/rflx Micro + Cult 03/03/25 E78.00 - Pure hypercholesterolemia, unspecified, F33.9 - Major depressive disorder, recurrent, unspecified, F41.1 - Generalized anxiety disorder, I10 - Essential (primary) hypertension, R74.8 - Abnormal levels of other serum enzymes, Z13.220 - Encounter for screening for lipoid disorders TSH reflex Free T4 03/03/25 E78.00 - Pure hypercholesterolemia, unspecified, F33.9 - Major depressive disorder, recurrent, unspecified, F41.1 - Generalized anxiety disorder, I10 - Essential (primary) hypertension, R74.8 - Abnormal levels of other serum enzymes Creatine Kinase Total 03/03/25 R74.8 - Abnormal levels of other serum enzymes Medications: New metoprolol succinate ER 100 mg PO DAILY 90 tabs 1RF Discontinued atenolol Discontinued Reason: Doctor's Order 25 mg PO DAILY 90 tabs 3RF Patient Instructions: Continue losartan 100 mg Increase metoprolol to 100 mg daily discontinue atenolol Continue amlodipine 5 mg Do blood work today Call me tomorrow with blood pressure readings in the afternoon
[2025-03-03 14:55] VITALS: BP 221/95; PULSE 86; RESP 14; TEMP 36.6; O2SAT 95; BMI 37.5
--- OUTSIDE RECORDS SUMMARY | 2025-03-03 15:06 | XMS_ITS | Encounter Summary ---
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 [employer] Name Role Phone Ne Cho MD Unavailable [phone] Unknown, Unknown Primary Care Provider Ling Blanc NP Primary Care Provider + Reason for Referral * Consultation (Elective) - Closed Specialty Diagnoses / Procedures Referred By Contac t Referred To Contact Pulmonary Disease Diagnoses Wheezing Ling Middleton NP Phone: tel: fax: [address] [address] Phone: tel: Referral ID Status Reason Start Date Expiration Date Visits Re quested Visits Authorized [id number] Closed 06/26/2021 06/26/2022 1 1 Encounter Details Date Type Department Care Team (Late st Contact Info) Description 06/26/2021 Transcribe Orders [facility] Pulmonary, Allergy and Critical Care Medicine [address] [place], [place] [id number] Ling Middleton NP [address] [place] [address] [phone] Wheezing (Primary Dx) Social History Tobacco Use Types Packs/Day Years Used Date Smoking Tobacco: Former Cigarettes 1 8 - 1966 Smokeless Tobacco: Never Education Answer Date Recorded Are you interested in help w ith more adult education (for example, completing high school, GED, job training, learning the Pryde[place] language, technical skills, or developing parenting skills)? [...] Associated Diagnoses Order Schedule Ambulatory referral to [facility] Pulmonology Outpatient Referral Routine Wheezing Ordered: [...] 1. Pt will explore exercise classes at [facility] once cleared by spinal surgeon. 2. Pt will engage in Weight [employer] classes. documented as of this encounter Visit Diagnoses Diagnosis Wheezing- Primary documented in this encounter Additional Health Concerns Assessment Noted Time PHQ-2 Depression Total Score: 0 03/12/20 18 1:28 PM EDT documented as of this encounter Care Teams [employer]worker [employer] Relationship Specialty Start Date End Date Unknown, Unknown, MD PCP - General 06/28/21 07/04/21 Ling Middleton NP [address] [place] [id number] PCP - General Family Medicine 07/05/21 Ne Cho MD [address] [place] [address], [address] [place] [address] [email or web address] Insurance Assigned Provider 11/04/19 08/04/22 documented as of this encounter Additional Source Comments The information contained in this document represents components of the legal health record. It is not the complete legal health record.[facility]
--- OUTSIDE RECORDS SUMMARY | 2025-03-03 15:06 | XMS_ITS | Patient Health Record ---
[facility] Address [address] [place] [address] Care Team Providers Care Process Line Operator Name Role Phone Allison Ham Primary Care Provider Nyla Sharma Unavailable [phone] Allergies Allergen (clinical drug ingredient) Drug/Non Drug [...] MG as directed Orally 06/28/2020 Active Ipratropium [place] 0.06 % USE 1 SPRAY IN EACH [...] fentaNYL Not-Taking traMADol HCl Not-Serge ing Nasal [place] Active Meloxicam Not-Taking Vitamin D 400 UNIT [...] primary osteoarthritis of the ankle and/or foot (404221692) 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 Plan Of Treatment Pending Test Test Name Order Date MRI : Foot, left 06/28/2020 X ray : Foot, left 3V 05/25/2020 X ray : Foot, right 3V 07/19/2017 X ray : Foot, right 3V 06/19/2019 [id number] NAIL, 6 OR MORE 03/07/2018 87827-Macrydeg Plate 06/25/2011 94256- Debride <25 sq cm 07/11/2011 [id number] TENDON SHEATH/LIGAMENT 1 08/19/2018 [id number] TENDON SHEATH/LIGAMENT 0 03/07/2018 90739,[id number] TENDON SHEATH/LIGAMENT 1 87227,Q9077-PRE TENDON SHEATH/LIGAMENT 0 01/06/2020 [id number] TENDON SHEATH/LIGAMENT 0 04/12/2020 00796- Unna Boot 06/19/2019 X ray : Ankle, right 3V 06/19/2019 Next Appt Details Provider Name:Nyla wang, 04/09/2025 10:30:00 AM, [address] [place] [address], [phone], Insurance Providers Payer Name Payer Address Payer Phone Subscriber Number Group Number Insured Name Patient Relationship to Insured Coverage Start Date Coverage End Date Medicare National Govt [employer] [address] [place] [address] [id number] Brenda Wolf Self - patient is the insured [address] [place] [phone] [id number] Brenda Wolf Self - patient is the [...] Date(Month/Year) right foot hurting diagnosed plantar 07/17/2017 [facility]- jaswinder,CAT scan, yaz, 06/15/19- 1 08/19/18 [facility]- Spinal sten osis Sx 11/26/2017
--- OUTSIDE RECORDS SUMMARY | 2025-03-03 15:06 | XMS_ITS | Patient Health Record ---
Author Organization [facility] Address [address] [place] [address] Care Team Providers Care Visiting Professor Name Role Phone Ling Middleton DNP Primary [...] a day for 30 day(s) Active Ipratropium Lindstrom 0.06 % 2 sprays in e ach nostril Nasally Three times a day for 4 day(s) Active Amoxicillin 500 MG 1 capsule Orally NEEDED FOR DENTIST Active Calcium 500 MG 1 tablet Orally Once a day Active Tramadol & Dietary Manage Prod Active Vitamin D3 Ultra Potency 80016 UNIT 1 tablet Orally as directed Active [...] Problem Status W/U Status Risk Notes Problem 21549825 Rectal bleeding (K62.5) Active confirmed Problem 502356496 Gastro-esophagea l reflux disease without esophagitis (K21.9) Active confirmed Problem 93903926 Cough (R05) Active confirmed Problem [id number] Urinary incontinence, unspecified type (R32) Active confirmed Plan Of Treatment Pending Test Test Name Order Date XR GI SERIES 07/14/2015 Insurance Providers Payer Name Payer Address Payer Phone Subscriber Number Group Number Insured Name Patient Relationship to Insured Coverage Start Date Coverage End Date MEDICARE OF [place] [address] [place] [address] [id number] KAY COLLINS Self - patient is the insured [employer] [address] [place] [phone] [id number] KAY COLLINS Self - patient is the insured Medical (General) History Medical History History ICD Code EGD/colonoscopy 01/03/2006. No evidence of Morse's esophagus. Hyperplastic colon polyp. Seasonal allergic rhinitis hypertension hypercholesterolemia scoliosis arthritis depression Surgical History Surgery Date(Month/Year) Vocal cord polyp 2006 Multiple back and neck surgeries rotator cuff surgery both knee replacement left
[2025-03-03 15:11] VITALS: BP 170/84
== END 2025-03-03 15:41 | disposition home or self-care (01) ==
LOC: HO.HMCFM 14:42
PROVIDERS: PCP Physician Assistant; Visit Provider Physician Assistant
DX: I10 Essential (primary) hypertension (principal); R74.8 Abnormal levels of other serum enzymes; W19.XXXA Unspecified fall, initial encounter

== ENCOUNTER 2025-03-03 14:41 | Outpatient (REF) | payer MEDICARE, OTHER, SELFPAY ==
[2025-03-03 18:10] LABS: Hematocrit 37.8 % (37.0-47.0); Hemoglobin 12.7 g/dl (12.0-16.0); Imm Gran Abs Auto 0.12 X10*3/uL (0.00-0.03); Imm Gran Pct Auto 0.9 % (0.0-0.4); Lymphocytes Absolute Auto 1.8 X10*3/uL (1.2-4.9); MANUAL DIFF FLAG NO; Mean Corpuscular HGB Conc 33.6 g/dl (31.0-35.0); Mean Corpuscular Hemoglobin 31.4 pg (27.0-33.0); Mean Corpuscular Volume 93.3 fL (80.0-98.0); NRBC Abs Auto 0.000 X10*3/uL (0.0-0.012); NRBC Pct Auto 0.0 /100WBC (0.0-0.2); Platelet Count 363 X10*3/uL (160-400); Red Blood Count 4.05 X10*6/uL (4.20-5.50); White Blood Count 12.7 X10*3/uL (4.8-10.8)
[2025-03-03 18:22] LABS: Appearance Urine Clear; Glucose Urine UA Negative (Negative); PH 5.5 (5.0-9.0); Specific Gravity - Urine 1.015 (1.005-1.025)
[2025-03-03 19:08] LABS: Alanine Aminotransferase 20 U/L (0-31); Albumin Level 4.3 g/dL (3.5-5.0); Alkaline Phosphatase 90 U/L (39-117); Anion Gap 13 (12-20); Aspartate Amino Transferase 20 U/L (5-31); Blood Urea Nitrogen 25 mg/dL (9-16); Calcium 9.5 mg/dL (8.4-10.2); Carbon Dioxide 25 mmol/L (22-29); Chloride 107 mmol/L (96-108); Estimated Glomerular Filt Rate 50; Potassium 4.0 mmol/L (3.3-5.1); Sodium 141 mmol/L (135-145); Total Protein 7.0 g/dL (6.5-8.0)
== END 2025-03-03 14:42 | disposition home or self-care (01) ==
LOC: HO.WFDLDS 14:41
PROVIDERS: PCP Physician Assistant; Visit Provider Physician Assistant
DX: I10 Essential (primary) hypertension (principal); R74.8 Abnormal levels of other serum enzymes; E78.00 Pure hypercholesterolemia, unspecified; F33.9 Major depressive disorder, recurrent, unspecified; F41.1 Generalized anxiety disorder; J44.9 Chronic obstructive pulmonary disease, unspecified; I48.91 Unspecified atrial fibrillation; M54.9 Dorsalgia, unspecified; G89.29 Other chronic pain; Z79.01 Long term (current) use of anticoagulants; Z79.891 Long term (current) use of opiate analgesic; Z79.899 Other long term (current) drug therapy; Z91.81 History of falling; Z13.220 Encounter for screening for lipoid disorders
CPT/HCPCS: 36415; 80053; 81003; 82550; 84443; 85025; 99495

== ENCOUNTER 2025-03-10 10:50 | Outpatient (AMB) | payer MEDICARE, OTHER, SELFPAY ==
--- NOTE | 2025-03-10 11:09 | A.OFFPC_ITS ---
Vital Signs 03/10/25 11:15 Height 4 ft 10 in Weight 176 lb BMI 36.8 BP 140/74 H Blood Pressure Location Rt brachial Position Sitting Respiration 14 Pulse 62 Pulse Source Pulse Oximeter Temp 97.8 F Temp Source Temporal Artery Scan Pulse Oximetry (%) 99 Oxygen Delivery Method Room Air Intake Visit Reasons: follow up blood pressure Intake Note: Brenda presents in the office to follow up to her blood pressure. Allergies bee pollen Allergy (Unknown, Verified 03/10/25 11:11) Unknown house dust mite Allergy (Unknown, Verified 03/10/25 11:11) Unknown adhesive tape Adverse Reaction (Intermediate, Verified 03/10/25 11:11) Rash Medication List - Last Reconciled 03/10/25 by Allison Ham PA-C acetaminophen 1,000 mg (2 x 500 mg) PO Q6H 10 days albuterol sulfate 90 mcg/actuation 2 puffs PO Q6H PRN amlodipine 5 mg PO DAILY atorvastatin (Lipitor) 10 mg PO BEDTIME bacitracin 1 appl topical Q8H PRN cholecalciferol (vitamin D3) 50 mcg PO DAILY fluticasone furoate-vilanterol 200-25 mcg/dose (Breo Ellipta) 1 ea inhalation DAILY fluticasone propionate 50 mcg/actuation 1 spray intranasal BID gabapentin 300 mg PO BID PRN hydrocortisone-pramoxine 2.5-1 % 1 appl [place] BID PRN ipratropium bromide 2 sprays intranasal Q12H losartan 100 mg PO DAILY metoprolol succinate ER 100 mg PO DAILY nystatin 1 appl topical BID PRN oxycodone 5 mg PO Q8H PRN 28 days oxycodone myristate CR-ER (Xtampza ER) 9 mg PO Q12H PRN pantoprazole 40 mg PO DAILY@0630 rivaroxaban (Xarelto) 20 mg PO BEDTIME romosozumab-aqqg (Evenity) 210 mg subcut QMONTH sertraline 100 mg PO DAILY trazodone 100 mg PO BEDTIME vibegron (Gemtesa) 75 mg PO DAILY walker A rolling walker with seat use daily As directed Tobacco use date assessed: 03/10/25 Dental Screening Dental Screen Date: 03/10/25 Did you have a dental visit in the last 12 months?: Yes Did you have a dental problem in the last 6 months where you did not have access to dental care?: No Was dental information given to patient?: Patient has dentist HPI follow up blood pressure HPI Details Pt is an 89 y/o female with past medical history significant for hypertension, COPD -no home oxygen, AFib on Xarelto and chronic back pain on oxy codone presenting today for blood pressure follow up. CV: Blood pressure today in the office is 140 over 74. She says at home it has been even lower than this. She is currently on metoprolol 100 mg daily (recently switch from atenolol), losartan 100 mg daily and amlodipine 5 mg daily. She is following with Cardiology at the end of the month. She remains on Xarelto and is compliant with this. No falls since the hospital. Psych: She tells me today that the trazodone does not appear to be that effective for getting her to sleep and keeping her asleep. She states it feels like she takes a bunch and naps at night. She does not feel physically tired either and has been less physically active due to her chronic back pain. She used to go to the gym it was swimming a lot. She does feel that the sertraline is helpful for her overall anxiety and depression. No SI/HI. Nephro: Recently had labs which showed a decreased GFR. She was poorly hydrated. Msk: pain is currently well managed. [facility] Medical History Left ankle swelling Generalized anxiety disorder Insomnia Major depression, recurrent, chronic Arthritis High blood cholesterol COPD (chronic obstructive pulmonary disease) Urge incontinence Joint pain Chronic back pain HTN (hypertension) Bleeding hemorrhoid Back pain with history of spinal surgery Surgical History History of back surgery History of surgery Family History Father Thrombosis Mother Diabetes Heart rate problem Social History (Updated 03/10/25 @ 11:15 by Chely Lloyd MA) Household Members: None Housing: Assisted Living Facility Do you presently have visiting nurse or other home services: No Alcohol intake: current Alcohol intake frequency: holidays/special occasions only Alcohol type: wine Patient Tobacco Use Status: Former Tobacco user Tobacco use type: Cigarette Cigarettes Per Day: 15 Years Smoked: 10 e-Cigarette/Vaping Use: Never Used Second Hand Smoke Exposure: No service: No Current occupational status: retired Cognitive needs: No Hearing needs: Yes (hearing aids) Vision needs: No Questionnaire Thrive Questionnaire Date Thrive assessed: 07/29/24 I am a: Patient What is your living situation today?: I have a steady place to live THRIVE Score: 0 RAYNE-7 AMB Questionnaire RAYNE-7 Date RAYNE - 7 assessed: 01/29/24 Source: Developed by Drs. Rommel Olivares, Kaylee Fabian, Al Ny and colleagues, with an educational ken from [employer]. Physical exam (Primary Care) Vital Signs: Last Vital Signs Temp 97.8 F 03/10/25 11:15 Pulse 62 03/10/25 11:15 Resp 14 03/10/25 11:15 BP 140/74 H 03/10/25 11:15 Pulse Ox 99 03/10/25 11:15 Oxygen Delivery Method Room Air 03/10/25 11:15 BMI result Body Mass Index 36.8 Tobacco/Smoking Status: Tobacco use Status Tobacco use date assessed 03/10/25 03/10/25 11:18 Patient Tobacco Use Status Former Tobacco user 03/10/25 11:15 Tobacco use type Cigarette 03/10/25 11:15 e-Cigarette/Vaping Use Never Used 03/10/25 11:15 Thrive Assessment: Date of Thrive Assessment Date Thrive assessed 07/29/24 03/10/25 11:11 Const Orientation/consciousness: patient oriented x3 HENMT Ears: hearing grossly normal bilaterally Neck Thyroid: Thyroid normal Lymphatic: no lymphadenopathy noted Resp Auscultation: clear to auscultation bilaterally Cardio Rate: regular rate Rhythm: regular rhythm Heart sounds: S1 normal heart sound present and S2 normal heart sound present GI Inspection: Yes normal to inspection Palpation (GI): Soft to palpation and Other GI palpation findings present (nontender, no cva tenderness) Auscultation: normoactive bowel sounds Rectal Exam - Female: deferred Skin General skin exam: no rashes or lesions noted Neuro General: patient oriented x3, gait normal and no focal motor deficits Results Reviewed Results Reviewed: Laboratory Tests 02/21/25 03/03/25 06:37 15:38 WBC 12.7 H RBC 4.05 L Hgb 12.7 Hct 37.8 Plt Count 363 D Sodium 141 Potassium 4.0 Chloride 107 Carbon Dioxide 25 Anion Gap 13 BUN 25 H Creatinine 0.68 1.04 Estimated GFR > 60 50 Random Glucose 88 Calcium 9.5 D Total Bilirubin 0.5 Coding Level of Care Code Est Pt Level 4 (54383) Complex EM visit Add On G2211 Diagnoses Major depression, recurrent, chronic F33.9 Primary hypertension I10 Hypertension type: primary hypertension Insomnia G47.00 Decreased GFR R94.4 Assessment & Plan Assessment & Plan (1) Major depression, recurrent, chronic: Code(s): F33.9 - Major depressive disorder, recurrent, unspecified Category: Medical Plan: continue sertraline (2) HTN (hypertension): Code(s): I10 - Essential (primary) hypertension Category: Medical Qualifiers: Hypertension type: primary hypertension Qualified Code(s): I10 - Essential (primary) hypertension Plan: continue current plan (3) Insomnia: Code(s): G47.00 - Insomnia, unspecified Category: Medical Plan: will try hydroxyzine (4) Decreased GFR: Code(s): R94.4 - Abnormal results of kidney function studies Category: Medical Plan: recheck labs Orders: Orders Basic Metabolic Panel Today F33.9 - Major depressive disorder, recurrent, unspecified, G47.00 - Insomnia, unspecified, I10 - Essential (primary) hypertension, R94.4 - Abnormal results of kidney function studies Complete Blood Count Auto Diff Today F33.9 - Major depressive disorder, recurrent, unspecified, G47.00 - Insomnia, unspecified, I10 - Essential (primary) hypertension, R94.4 - Abnormal results of kidney function studies Medications: New hydroxyzine HCl 25 mg PO BEDTIME 90 tabs 0RF Refilled oxycodone 5 mg PO Q8H PRN 84 tabs 0RF Pain 28 days Discontinued trazodone Discontinued Reason: Doctor's Order 100 mg PO BEDTIME 90 tabs 3RF Insomnia Patient Instructions: stop trazodone start hydroxyzine - take 1 tab but you could try 2 if you needed to let me know how it goes recheck labs in a couple weeks hydrate
[2025-03-10 11:15] VITALS: BP 140/74; PULSE 62; RESP 14; TEMP 36.6; O2SAT 99; BMI 36.8
--- OUTSIDE RECORDS SUMMARY | 2025-03-10 11:44 | XMS_ITS | Patient Health Record ---
Author Organization [facility] Address [address] [place] [address] Care Team Providers Care Client Specialist Name Role Phone Ling Middleton DNP [...] a day for 30 day(s) Active Ipratropium [place] 0.06 % 2 sprays in e ach nostril Nasally Three times a day for 4 day(s) Active Amoxicillin 500 MG 1 capsule Orally NEEDED FOR DENTIST Active Calcium 500 MG 1 tablet Orally Once a day Active Tramadol & Dietary Manage Prod Active Vitamin D3 Ultra Potency 49280 UNIT 1 tablet Orally as directed Active [...] Problem Status W/U Status Risk Notes Problem 36060960 Rectal bleeding (K62.5) Active confirmed Problem 170970288 Gastro-esophagea l reflux disease without esophagitis (K21.9) Active confirmed Problem 64018348 Cough (R05) Active confirmed Problem [id number] Urinary incontinence, unspecified type (R32) Active confirmed Plan Of Treatment Pending Test Test Name Order Date XR GI SERIES 07/14/2015 Insurance Providers Payer Name Payer Address Payer Phone Subscriber Number Group Number Insured Name Patient Relationship to Insured Coverage Start Date Coverage End Date MEDICARE OF [place] [address] [place] [address] [id number] KAY COLLINS Self - patient is the insured [employer] [address] [place] [phone] [id number] KAY COLLINS Self - patient is the insured Medical (General) History Medical History History ICD Code EGD/colonoscopy 01/03/2006. No evidence of Morse's esophagus. Hyperplastic colon polyp. Seasonal allergic rhinitis hypertension hypercholesterolemia scoliosis arthritis depression Surgical History Surgery Date(Month/Year) Vocal cord polyp 2006 Multiple back and neck surgeries rotator cuff surgery both knee replacement left
--- OUTSIDE RECORDS SUMMARY | 2025-03-10 11:44 | XMS_ITS | Patient Health Record ---
Author [facility] Address [address] [place] [address] Care Team Providers Care Heavy Truck Technician Name Role Phone Allison Ham Primary Care Provider Nyla Sharma Unavailable [phone] Allergies Allergen (clinical drug ingredient) Drug/Non Drug [...] MG as directed Orally 06/28/2020 Active Ipratropium [place] 0.06 % USE 1 SPRAY IN EACH [...] fentaNYL Not-Taking traMADol HCl Not-Serge ing Nasal [place] Active Meloxicam Not-Taking Vitamin D 400 UNIT [...] primary osteoarthritis of the ankle and/or foot (734170690) 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 Plan Of Treatment Pending Test Test Name Order Date MRI : Foot, left 06/28/2020 X ray : Foot, left 3V 05/25/2020 X ray : Foot, right 3V 07/19/2017 X ray : Foot, right 3V 06/19/2019 [id number] NAIL, 6 OR MORE 03/07/2018 10033-Eriasdpt Plate 06/25/2011 12544- Debride <25 sq cm 07/11/2011 84261,[id number] TENDON SHEATH/LIGAMENT 1 08/19/2018 83516,[id number] TENDON SHEATH/LIGAMENT 0 03/07/2018 24704,[id number] TENDON SHEATH/LIGAMENT 1 39499,[id number] TENDON SHEATH/LIGAMENT 0 01/06/2020 72674,[id number] TENDON SHEATH/LIGAMENT 0 04/12/2020 09150- Unna Boot 06/19/2019 X ray : Ankle, right 3V 06/19/2019 Next Appt Details Provider Name:Nyla wang, 04/09/2025 10:30:00 AM, [address] [place] [address], [phone], Insurance Providers Payer Name Payer Address Payer Phone Subscriber Number Group Number Insured Name Patient Relationship to Insured Coverage Start Date Coverage End Date Medicare National Govt [employer] [address] [place] [address] [id number] Brenda Wolf Self - patient is the insured [address] [place] [phone] [id number] Brenda Wolf Self - patient is the [...] Date(Month/Year) right foot hurting [place] plantar [place] [facility] [place] yaz, 06/15/19- 1 08/19/18 [place] Jay Crum- Spinal sten osis Sx 11/26/2017
--- OUTSIDE RECORDS SUMMARY | 2025-03-10 11:44 | XMS_ITS | Encounter Summary ---
Author Organization [facility] Address [address] [place] [address] Phone Care Team Providers Care Distribution Center Manager Name Role Phone Ne Cho MD Unavailable [phone] Unknown, Unknown Primary Care Provider Ling Blanc NP Primary Care Provider + Reason for Referral * Consultation (Elective) - Closed Specialty Diagnoses / Procedures Referred By Contac t Referred To Contact Pulmonary Disease Diagnoses Wheezing Ling Middleton NP Phone: tel: fax: [address] [address] Phone: tel: Referral ID Status Reason Start Date Expiration Date Visits Re quested Visits Authorized [id number] Closed 06/26/2021 06/26/2022 1 1 Encounter Details Date Type Department Care Team (Late st Contact Info) Description 06/26/2021 Transcribe Orders [facility] Pulmonary, Allergy and Critical Care Medicine [address] [place], [place] [id number] Ling Middleton NP [address] [place] [address] [phone] Wheezing (Primary Dx) Social History Tobacco Use Types Packs/Day Years Used Date Smoking Tobacco: Former Cigarettes 1 8 - 1966 Smokeless Tobacco: Never Education Answer Date Recorded Are you interested in help w ith more adult education (for example, completing high school, GED, job training, learning the Maldivian language, technical skills, or developing parenting skills)? [...] Associated Diagnoses Order Schedule Ambulatory referral to [facility] Pulmonology Outpatient Referral Routine Wheezing Ordered: 06/26/2021 [...] 1. Pt will explore exercise classes at [facility] once cleared by spinal surgeon. 2. Pt will engage in Weight Watchers classes. documented as of this encounter Visit Diagnoses Diagnosis Wheezing- Primary documented in this encounter Additional Health Concerns Assessment Noted Time PHQ-2 Depression Total Score: 0 03/12/20 18 1:28 PM EDT documented as of this encounter Care Teams Distribution Center Manager Relationship Specialty Start Date End Date Unknown, Unknown, MD PCP - General 06/28/21 07/04/21 Ling Middleton NP [address] [place] [address] PCP - General Family Medicine 07/05/21 Ne Cho MD [address] [place] [address], [address] [place] [address] [email or web address] Insurance Assigned Provider 11/04/19 08/04/22 documented as of this encounter Additional Source Comments The information contained in this document represents components of the legal health record. It is not the complete legal health record.[facility]
== END 2025-03-10 11:33 | disposition home or self-care (01) ==
LOC: HO.HMCFM 10:51
PROVIDERS: PCP Physician Assistant; Visit Provider Physician Assistant
DX: F33.9 Major depressive disorder, recurrent, unspecified (principal); I10 Essential (primary) hypertension; G47.00 Insomnia, unspecified; R94.4 Abnormal results of kidney function studies

== ENCOUNTER → 2025-03-10 10:50 | Outpatient (BNVA) | payer MEDICARE, OTHER, SELFPAY | PROVIDERS: PCP Physician Assistant; Visit Provider Physician Assistant | DX: F33.9 Major depressive disorder, recurrent, unspecified (principal); I10 Essential (primary) hypertension; G47.00 Insomnia, unspecified; R94.4 Abnormal results of kidney function studies | CPT/HCPCS: 99212 ==

== ENCOUNTER 2025-03-19 14:37 | Outpatient (AMB) | payer MEDICARE, OTHER, SELFPAY ==
[2025-03-19 14:41] VITALS: BP 138/68; PULSE 80; BMI 36.4
--- NOTE | 2025-03-19 14:41 | MHC.OFFVIS ---
Vital Signs 03/19/25 14:41 Height 4 ft 10 in Weight 174 lb 2.643 oz BMI 36.4 BP 138/68 Blood Pressure Location Lt brachial Position Sitting Pulse 80 Pulse Source Pulse Oximeter Intake Visit Reasons: 2 week [facility] f/up Allergies bee pollen Allergy (Unknown, Verified 03/10/25 11:11) Unknown house dust mite Allergy (Unknown, Verified 03/10/25 11:11) Unknown adhesive tape Adverse Reaction (Intermediate, Verified 03/10/25 11:11) Rash Medication List - Last Reconciled 03/19/25 by Goldy Jean-Baptiste NP acetaminophen 1,000 mg (2 x 500 mg) PO Q6H 10 days albuterol sulfate 90 mcg/actuation 2 puffs PO Q6H PRN amlodipine 5 mg PO DAILY atorvastatin (Lipitor) 10 mg PO BEDTIME bacitracin 1 appl topical Q8H PRN cholecalciferol (vitamin D3) 50 mcg PO DAILY fluticasone furoate-vilanterol 200-25 mcg/dose (Breo Ellipta) 1 ea inhalation DAILY fluticasone propionate 50 mcg/actuation 1 spray intranasal BID gabapentin 300 mg PO BID PRN hydrocortisone-pramoxine 2.5-1 % 1 appl SC BID PRN hydroxyzine HCl 25 mg PO BEDTIME ipratropium bromide 2 sprays intranasal Q12H losartan 100 mg PO DAILY metoprolol succinate ER 100 mg PO DAILY nystatin 1 appl topical BID PRN oxycodone 5 mg PO Q8H PRN 28 days oxycodone myristate CR-ER (Xtampza ER) 9 mg PO Q12H PRN pantoprazole 40 mg PO DAILY@0630 rivaroxaban (Xarelto) 20 mg PO BEDTIME romosozumab-aqqg (Evenity) 210 mg subcut QMONTH sertraline 100 mg PO DAILY vibegron (Gemtesa) 75 mg PO DAILY walker A rolling walker with seat use daily As directed HPI Comments Details: This is an 89-year-old female patient coming in for a hospital discharge follow-up, accompanied by her daughter. Patient with a history of paroxysmal AFib, hypertension, COPD, and dyslipidemia. Patient was recently in the hospital for syncopal episode. Patient denies any prodromal symptoms before passing out and remembers getting up from her couch and walking towards her bedroom and then she found herself passed out on the ground. In the hospital, patient's orthostatics were negative however her blood pressures were noted to be elevated. Patient was previously on metoprolol but due to hair loss she was switched to atenolol. In the hospital, patient was switched back from atenolol to metoprolol however patient seems to have taken both of them after discharge. Patient states that at her recent PCP visit, patient was stopped on atenolol and was increase the metoprolol to 100 mg. Patient states that her blood pressures have been stable and has started hydrating herself better. Patient states that other than her chronic shortness of breath from the COPD, she is feeling well overall and is denying any exertional chest pain, palpitations, dizziness, fatigue, orthopnea, PND, leg edema, presyncope or syncope. Patient is reporting compliance with all her medications [facility] Medical History Paroxysmal A-fib Chronic pain syndrome Left ankle swelling Generalized anxiety disorder Insomnia Major depression, recurrent, chronic Arthritis High blood cholesterol COPD (chronic obstructive pulmonary disease) Urge incontinence Joint pain Chronic back pain HTN (hypertension) Bleeding hemorrhoid Back pain with history of spinal surgery Surgical History History of back surgery History of surgery Family History Father Thrombosis Mother Diabetes Heart rate problem Social History Household Members: None Housing: Assisted Living Facility Do you presently have visiting nurse or other home services: No Alcohol intake: current Alcohol intake frequency: holidays/special occasions only Alcohol type: wine Patient Tobacco Use Status: Former Tobacco user Tobacco use type: Cigarette Cigarettes Per Day: 15 Years Smoked: 10 e-Cigarette/Vaping Use: Never Used Second Hand Smoke Exposure: No service: No Current occupational status: retired Cognitive needs: No Hearing needs: Yes (hearing aids) Vision needs: No Review of Systems Const Denies weakness ENT Denies dizziness Card Denies chest pain, Denies chest pain with activity, Denies syncope, Denies rapid heart rate, Denies pedal edema, Denies edema, Denies leg edema, Denies lightheadedness, Denies palpitations, Denies dyspnea, Denies dyspnea on exertion and Denies orthopnea Resp Denies cough, Denies dyspnea and Denies dyspnea on exertion GI Denies hematochezia and Denies change in stool character Musc Denies abnormal gait, Denies muscle cramps, Denies muscle weakness, Denies numbness, Denies radiating pain into limb and Denies tingling Neuro Denies abnormal gait, Denies dizziness, Denies syncope, Denies numbness, Denies tingling and Denies weakness Endo Denies palpitations Physical Exam Vital Signs: Last Vital Signs Pulse 80 03/19/25 14:41 BP 138/68 03/19/25 14:41 BMI result Body Mass Index 36.4 Const General: cooperative, healthy appearing, comfortable and no acute distress Orientation/consciousness: patient oriented x3 HEENT Head: Yes normal to inspection Neck Neck: Yes normal visual inspection, Yes trachea midline and Yes supple Chest Chest palpation & inspection: normal inspection of the chest Resp Effort & Inspection: normal respiratory effort Auscultation: clear to auscultation bilaterally, no crackles, no rales, no rhonchi and no wheezes Cardio Jugular venous distension: no JVD Palpation: normal PMI Rate: regular rate Rhythm: regular rhythm Heart sounds: S1 normal heart sound present, S2 normal heart sound present, no click, no gallops, no murmurs and no rubs Peripheral pulses: Peripheral pulses 2+ throughout GI Inspection: Yes normal to inspection Palpation (GI): Soft to palpation Auscultation: normal bowel sounds Skin General skin exam: no rashes or lesions noted Neuro General: patient oriented x3 Extrem General: Yes normal to inspection, No no pedal edema and No calf tenderness Psych Appearance: grossly normal Mental Status: mental status grossly normal Speech and movement: Normal speech and movement present Assessment & Plan Assessment & Plan (1) Syncope: Code(s): R55 - Syncope and collapse Category: Medical Plan: Syncopal episode leading to hospitalization without any prodromal symptoms. Patient's blood pressure was noted to be quite elevated and also dehydrated. Patient's imaging were negative and EKG was normal sinus at that time without any ischemic changes. Patient was hydrated with IV fluids and blood pressure was controlled. Echo study had shown normal LV systolic function with an ejection fraction between 60-65% with mild LVH with a grade 2 diastolic dysfunction, and moderately dilated left atrium. Clinically stable and without any cardiac symptoms. Patient's syncopal episode could most likely be due to dehydration however, to rule out any potential arrhythmias, we will proceed with a Holter study. Further treatment based on findings. (2) Paroxysmal A-fib: Code(s): I48.0 - Paroxysmal atrial fibrillation Category: Medical Plan: History of paroxysmal AFib. Continue Xarelto for full anticoagulation. Patient on metoprolol for rate control approach. No reported signs of bleeding. (3) HTN (hypertension): Code(s): I10 - Essential (primary) hypertension Category: Medical Qualifiers: Hypertension type: primary hypertension Qualified Code(s): I10 - Essential (primary) hypertension Plan: Blood pressure today is well controlled. Patient brings in her log of blood pressures and systolic blood pressure averaging at 120s. Continue current regimen. Advised monitoring blood pressures at home and maintaining a log of it. Ideally, blood pressure goal less than 130/80. (4) Hospital discharge follow-up: Code(s): Z09 - Encounter for follow-up examination after completed treatment for conditions other than malignant neoplasm Plan: As above. Advised heart healthy diet, regular exercise, adequate hydration, med compliance, and management of vascular risk factors. Patient will plan to follow up with Dr. Collier. In the interim, patient will call the office with any concerns or change in symptoms. This note was generated using voice recognition software. While every effort has been made to ensure accuracy and proper international trade specialist, there may be occasional errors that could affect the content or meaning of the described symptoms. Orders: Orders ECG 7 day holter monitor Today R55 - Syncope and collapse Coding Level of Care Code Est Pt Level 4 (18426) Complex EM visit Add On G2211 Diagnoses Syncope R55 Paroxysmal A-fib I48.0 Primary hypertension I10 Hypertension type: primary hypertension Hospital discharge follow-up Z09 Time Spent (min) 33 Comment Time spent in reviewing the chart, test results, assessment, counseling and documentation.
--- OUTSIDE RECORDS SUMMARY | 2025-03-19 14:41 | XMS_ITS | Encounter Summary ---
Author Organization [facility] Address [address] [place] [address] Phone Care Team Providers Care Repairer Switchgear Name Role Phone Ne Cho MD Unavailable Unknown, Unknown Primary Care Provider Ling Blanc NP Primary Care Provider + Reason for Referral * Consultation (Elective) - Closed Specialty Diagnoses / Procedures Referred By Contac t Referred To Contact Pulmonary Disease Diagnoses Wheezing Ling Middleton NP Phone: tel: fax: [address] [address] Phone: tel: Referral ID Status Reason Start Date Expiration Date Visits Re quested Visits Authorized [id number] Closed 06/26/2021 06/26/2022 1 1 Encounter Details Date Type Department Care Team (Late st Contact Info) Description 06/26/2021 Transcribe Orders [facility] Pulmonary, Allergy and Critical Care Medicine [address] [place], [place] [id number] Ling Middleton NP [address] [place] [address] [phone] Wheezing (Primary Dx) Social History Tobacco Use Types Packs/Day Years Used Date Smoking Tobacco: Former Cigarettes 1 8 - 1966 Smokeless Tobacco: Never Education Answer Date Recorded Are you interested in help w ith more adult education (for example, completing high school, GED, job training, learning the Colombian language, technical skills, or developing parenting skills)? [...] Associated Diagnoses Order Schedule Ambulatory referral to [facility] Pulmonology Outpatient Referral Routine Wheezing Ordered: [...] Pt will explore exercise classes at [facility] once cleared by spinal surgeon. 2. Pt will engage in Weight Watchers classes. documented as of this encounter Visit Diagnoses Diagnosis Wheezing- Primary documented in this encounter Additional Health Concerns Assessment Noted Time PHQ-2 Depression Total Score: 0 03/12/20 18 1:28 PM EDT documented as of this encounter Care Teams Repairer Switchgear Relationship Specialty Start Date End Date Unknown, Unknown, MD PCP - General 06/28/21 07/04/21 Ling Middleton NP [address] [place] [address] PCP - General Family Medicine 07/05/21 Ne Cho MD [address] [place] [address], [address] [place] [address] [email or web address] Insurance Assigned Provider 11/04/19 08/04/22 documented as of this encounter Additional Source Comments The information contained in this document represents components of the legal health record. It is not the complete legal health record.[facility]
--- OUTSIDE RECORDS SUMMARY | 2025-03-19 14:41 | XMS_ITS | Patient Health Record ---
Author Organization [facility] Address [address] [place] [address] Care Team Providers Care Tissue Specialist Name Role Phone Ling Middleton DNP [...] a day for 30 day(s) Active Ipratropium [place] 0.06 % 2 sprays in e ach nostril Nasally Three times a day for 4 day(s) Active Amoxicillin 500 MG 1 capsule Orally NEEDED FOR DENTIST Active Calcium 500 MG 1 tablet Orally Once a day Active Tramadol & Dietary Manage Prod Active Vitamin D3 Ultra Potency 36679 UNIT 1 tablet Orally as directed Active [...] Problem Status W/U Status Risk Notes Problem 81017334 Rectal bleeding (K62.5) Active confirmed Problem 430161482 Gastro-esophagea l reflux disease without esophagitis (K21.9) Active confirmed Problem 18797703 Cough (R05) Active confirmed Problem 367870674 Urinary incontinence, unspecified type (R32) Active confirmed Plan Of Treatment Pending Test Test Name Order Date XR GI SERIES 07/14/2015 Insurance Providers Payer Name Payer Address Payer Phone Subscriber Number Group Number Insured Name Patient Relationship to Insured Coverage Start Date Coverage End Date MEDICARE OF [place] [address] [place] [address] [id number] KAY COLLINS Self - patient is the insured [employer] [address] [place] [phone] [id number] KAY COLLINS Self - patient is the insured Medical (General) History Medical History History ICD Code EGD/colonoscopy 01/03/2006. No evidence of Morse's esophagus. Hyperplastic colon polyp. Seasonal allergic rhinitis hypertension hypercholesterolemia scoliosis arthritis depression Surgical History Surgery Date(Month/Year) Vocal cord polyp 2006 Multiple back and neck surgeries rotator cuff surgery both knee replacement left
--- OUTSIDE RECORDS SUMMARY | 2025-03-19 14:41 | XMS_ITS | Patient Health Record ---
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 Plan Of Treatment Pending Test Test Name Order Date MRI : Foot, left 06/28/2020 X ray : Foot, left 3V 05/25/2020 X ray : Foot, right 3V 07/19/2017 X ray : Foot, right 3V 06/19/2019 [id number] NAIL, 6 OR MORE 03/07/2018 62598-Xlccimqj Plate 06/25/2011 84485- Debride <25 sq cm 07/11/2011 65291,[id number] TENDON SHEATH/LIGAMENT 1 08/19/2018 27419,[id number] TENDON SHEATH/LIGAMENT 0 03/07/2018 34768,[id number] TENDON SHEATH/LIGAMENT 1 98044,[id number] TENDON SHEATH/LIGAMENT 0 01/06/2020 55488,[id number] TENDON SHEATH/LIGAMENT 0 04/12/2020 02405- Unna Boot 06/19/2019 X ray : Ankle, right 3V 06/19/2019 Next Appt Details Provider Name:Nyla wang, 04/09/2025 10:30:00 AM, [address] [place] [address], [phone], Insurance Providers Payer Name Payer Address Payer Phone Subscriber Number Group Number Insured Name Patient Relationship to Insured Coverage Start Date Coverage End Date Medicare National Govt [employer] [address] [place] [address] [id number] Brenda Wolf Self - patient is the insured [address] [place] [address] [place] [address] [place] [phone] [id number] Brenda Wolf Self - patient is the [...] foot hurting diagnosed plantar 07/17/2017 [facility] [place] jaswinder,CAT scan, yaz, 06/15/19- 1 08/19/18 [place] Jay Crum- Spinal sten osis Sx 11/26/2017
== END 2025-03-19 15:16 | disposition home or self-care (01) ==
LOC: HO.HCS 14:38
PROVIDERS: PCP Physician Assistant
DX: R55 Syncope and collapse (principal); I48.0 Paroxysmal atrial fibrillation; I10 Essential (primary) hypertension; Z09 Encounter for follow-up examination after completed treatment for conditions other than malignant neoplasm
CPT/HCPCS: 99214; G2211

== ENCOUNTER → 2025-03-19 14:37 | Outpatient (BNVA) | payer MEDICARE, OTHER, SELFPAY | PROVIDERS: PCP Physician Assistant | DX: Z09 Encounter for follow-up examination after completed treatment for conditions other than malignant neoplasm (principal); R55 Syncope and collapse; I48.0 Paroxysmal atrial fibrillation; I10 Essential (primary) hypertension; Z87.891 Personal history of nicotine dependence | CPT/HCPCS: 99212 ==

== ENCOUNTER 2025-03-30 11:15 | Outpatient (AMB) | payer MEDICARE, OTHER, SELFPAY ==
--- OUTSIDE RECORDS SUMMARY | 2017-02-20 06:52 | XMS_ITS | Continuity of Care Document ---
Author Organization [facility] [employer] [facility] cine Address [address] 2nd [place] [address] Phone Care Team Providers Care Hooker Off Name Role Phone Rodney Campos MD Unavailable [...] No Burn, Fall, Wrong Site, Side, Or Mrei ent, Procedure Patient W/O Pre Operartive IV [...] Location Reason(s) For Visit Diagnoses Date Provider [facility], [address] [place] [address], [place], [place], [id number], tel:[phone] [facility] No Information Beth Stevens. [address] [place] [address], [address] [place] [address], [place], [place], [id number], [place]. tel:[phone] 9225 [facility], [address] [place], [place] [address], [place], [place], [id number], tel:[phone] [facility] Spondyls w/o myelopathy or radiculopathy, lumbosacr region Dandridge Rodney. [address] [place] [address], [place], [place], [address], [place]. tel:[phone] [facility], [address] [place] [address], [place], [place], [address], [place] tel:[phone] [facility] No Information [facility]. [address] [place] [address], [id number], [place]. tel:[phone] [facility], [address] [place] [address], [place], [place], [address], [place] tel:[phone] [facility] Spondyls w/o myelopathy or radiculopathy, lumbosacr region Dandridge Rodney. [address] [place] [address], [place], [place], [address], [place]. tel:[phone] [facility], [address] [place] [address], [place], [place], [address], [place] tel:[phone] [facility] No Information [facility]. [address] [place] [address], [id number], [place]. tel:[phone] MD_Follow Up Level 4 [facility], [address] [place] [address], [place], [place], [address], [place] tel:[phone] [facility] Spondylosis without myelopathy or radiculopathy, lumbosacral regionOther spondylosis with radiculopathy, lumbar region Yoli Justice. [address] [place] [address], [address], [place]. tel:[phone] [facility], [address] [place] [address], [place], [place], [address], [place] tel:[phone] [facility] Spondylosis w/o myelopathy or radiculopathy, thoracic region Dandridge Rodney. [address] [place] [address], [place], [place], [address], [place]. tel:[phone] [facility], [address] [place] [address], [place], [place], [address], [place] tel:[phone] [facility] No Information [facility]. [address] [place] [address], [id number], [place]. tel:[phone] [facility], [address] [place] [address], [place], [place], [address], [place] tel:[phone] [facility] Spondylosis w/o myelopathy or radiculopathy, cervical region Blanca Obregon. [address] [place] [address], [place], [place], [address], [place]. tel:[phone] [facility], [address] [place] [address], [place], [place], [address], [place] tel:[phone] [facility] No Information [facility]. [address] [place] [address], [id number], [place]. 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 [address] [place] [address], [place], [place], [address]35[address], [place]. tel:[phone] [facility], [address] [place] [address], [place], [place], [address], [place] tel:[phone] [facility] No Information [facility]. [address] [place] [address], [id number], [place]. tel:[phone] [facility], [address] [place] [address], [place], [place], [address]2981, [place] tel:[phone] [facility] Cervical disc disorder w radiculopathy, unsp cervical region Blanca Obregon. [address] [place] [address], [place], [place], 2137[address]18, [place]. tel:[phone] [facility], [address] [place] [address], [place], [place], 2334[address]777, [place] tel:[phone] [facility] No Information [facility]. [address] [place] [address], [id number], [place]. tel:[phone] MD_Follow Up Level 4 [facility], [address] [place], [place] [address], [place], [place], [address], [place] tel:[phone] [facility] Postlaminectomy syndrome, not elsewhere classified Yoli Reshma. [address] [place] [address], [address], [place]. tel:[phone] MD_Follow Up Level 4 [facility], [address] [place], [place] [address], [place], [place], [address], [place] tel:[phone] [facility] Spondyls w/o myelopathy or radiculopathy, lumbosacr region Otilia Marin. [address] [place] [address], [id number], [place]. tel:[phone] [facility], [address] [place] [address], [place], [place], [address]66[address], [place] tel:[phone] [facility] Cervical disc disorder w radiculopathy, unsp cervical region Beth Stevens. [address] [place] [address], [facility], [place], [place], [id number], [place]. tel:[phone] [facility], [address] [place], [place] [address], [place], [place], [address], [place] tel:[phone] [facility] No Information [facility]. [address] [place] [address], [id number], [place]. tel:[phone] MD_Follow Up Level 4 [facility], [address] [place], [place] [address], [place], [place], [address], [place] tel:[phone] [facility] Spondyls w/o myelopathy or radiculopathy, lumbosacr region Broderick Nye. [address] [place] [address], [id number], [place]. tel:[phone] [facility], [address] [place], [place] [address], [place], [place], [address], [place] tel:[phone] [facility] Cervical disc disorder w radiculopathy, unsp cervical region Beth Stevens. [address] [place] [address], [place], [place], [address]40, [place]. tel:[phone] [facility], [address] [place] [address], [place], [place], [address], [place] tel:[phone] [facility] No Information [facility]. [address] [place] [address], [id number], [place]. tel:[phone] MD_Follow Up Level 4 [facility], [address] [place] [address], [place], [place], 157[address]771, [place] tel:[phone] [facility] No Information Yoli Justice. [address] [place] [address], [address], [place]. tel:[phone] [facility], [address] [place] [address], [place], [place], 157[address]484, [place] tel:[phone] [facility] No Information Beth Stevens. [address] [place] [address], [place], [place], [id number], [place]. tel:[phone] [facility], [address] [place] [address], [place], [place], [address]46, [place] tel:[phone] [facility] No Information [facility]. [address] [place] [address], [id number], [place]. tel:[phone] MD_Follow Up Level 4 [facility], [address] [place] [address], [place], [place], [address]892814, [place] tel:[phone] [facility] Spondylosis without myelopathy or radiculopathy, lumbosacral region Beth Stevens. [address] [place] [address], [place], [place], [address]27463933, [place]. tel:[phone] [facility], [address] [place] [address], [place], [place], [address]479[address]188, [place] tel:[phone] [facility] Postlaminectomy syndrome, not elsewhere classified Blanca Obregon. [address] [place] [address], [place], [place], 889474726, [place]. tel:[phone] [facility], [address] [place] [address], [place], [place], [address], [place] tel:[phone] [facility] No Information [facility]. [address] [place] [address], [id number], [place]. tel:[phone] MD_Follow Up Level 4 [facility], [address] [place] [address], [place], [place], 966[address], [place] tel:[phone] [facility] Other spondylosis with radiculopathy, lumbar region Otilia Marin. [address] [place] [address], [id number], [place]. tel:[phone] MD_Follow Up Level 4 [facility], [address] [place] [address], [place], [place], [address]88[address]75, [place] tel:[phone] [facility] Other spondylosis with radiculopathy, lumbar region Beléna Tania. [address] [place] [address], [id number], [place]. tel:[phone] [facility], [address] [place] [address], [place], [place], 117832631, [place] tel:[phone] [facility] No Information [place]cristhian LeesVivian. [address] [place] [address], [address], [place]. tel:[phone] [facility], [address] [place] [address], [place], [place], [address]60[address]80, [place] tel:[phone] [facility] No Information [facility]. [address] [place] [address], [id number], [place]. tel:[phone] [facility], [address] [place] [address], [place], [place], 964423870, [place] tel:[phone] [facility] No Information Beth Stevens. [address] [place] [address], [place], [place], 228736787, [place]. tel:[phone] [facility], [address] [place] [address], [place], [place], 5297[address]456, [place] tel:[phone] [facility] No Information Otilia Marin. [address] [place] [address], [id number], [place]. tel:[phone] [facility], [address] [place] [address], [place], [place], [address]55[address]09, tel:[phone] [facility] No Information Arsalanrichardtammy Praveen. [address] [place] [address], [address] [place] [address], [place], [place], [address]648, [place]. tel:[phone] MD_Follow Up Level 5 [facility], [address] [place] [address], [place], [place], [id number], [place] tel:[phone] [facility] No Information Otilia Marin. [address] [place] [address], [id number], . tel:[phone] Behavioral (Psych) 60 mins [facility], [address] [place] [address], [place], [place], [address]256[address]657, [place] tel:[phone] [facility] Spondylosis without myelopathy or radiculopathy, lumbosacral region Hermelinda Peña. [address] [place] [address], [id number], [place]. tel:[phone] [facility], [address] [place] [address], [place], [place], 886920946, [place] tel:[phone] [facility] No Information [facility]. [address] [place] [address], [id number], [place]. tel:[phone] [facility], [address] [place] [address], [place], [place], [address]21, [place] tel:[phone] [facility] No Information Beth Stevens. [address] [place] [address], [address] [place] [address], [place], [place], 603931892, [place]. tel:[phone] [facility], [address] [place] [address], [place], [place], 227282435, [place] tel:[phone] [facility] No Information Dandridge Rodney. [address] [place] [address], [place], [place], 490836969, [place]. tel:[phone] [facility], [address] [place] [address], [place], [place], 103956411, [place] tel:[phone] [facility] No Information [facility]. [address] [place] [address], [id number], [place]. tel:[phone] [facility], [address] [place] [address], [place], [place], 061695321, [place] tel:[phone] [facility] No Information Dandridge Rodney. [address] [place] [address], [place], [place], 9784[address]132, [place]. tel:[phone] MD_Follow Up Level 4 [facility], [address] [place] [address], [place], [place], 295025754, [place] tel:[phone] [facility] Spondylosis without myelopathy or radiculopathy, lumbosacral region Dandridge Rodney. [address] [place] [address], [place], [place], 9212[address]140, [place]. tel:[phone] [facility], [address] [place] [address], [place], [place], 287707577, [place] tel:[phone] [facility] No Information Dandridge Rodney. [address] [place] [address], [place], [place], [address]76[address]013, [place]. tel:[phone] [facility], [address] [place] [address], [place], [place], 779350222, [place] tel:[phone] [facility] No Information [facility]. [address] [place] [address], [id number], [place]. tel:[phone] [facility], [address] [place] [address], [place], [place], 022103675, [place] tel:[phone] [facility] No Information Dandridge Rodney. [address] [place] [address], [id number], [place]. tel:[phone] [facility], [address] [place], [place] [address], [place], [place], [address]80[address]502, [place] tel:[phone] [facility] No Information [facility]. [address] [place] [address], [id number], [place]. tel:[phone] [facility], [address] [place] [address], [place], [place], 568934671, [place] tel:[phone] [facility] No Information Beth Stevens. [address] [place] [address], [address] [place] [address], [place], [place], 737313955, [place]. tel:[phone] [facility], [address] [place] [address], [place], [place], 750195771, [place] tel:[phone] [facility] No Information [facility]. [address] [place] [address], [id number], [place]. tel:[phone] MD_Follow Up Level 3 [facility], [address] [place] [address], [place], [place], 624365316, [place] tel:[phone] [facility] Lumbosacral spondylosis without myelopathy Beth Stevens. [address] [place] [address], [place], [place], 397388759, [place]. tel:[phone] MD_Follow Up Level 3 [facility], [address] [place] [address], [place], [place], 772505246, [place] tel:[phone] [facility] Knee Pain (chief complaint) Enthesopathy of knee, unspecified Roque Gacria. [address] [place] [address], [address], [place]. tel:[phone] [facility], [address] [place] [address], [place], [place], 310958272, [place] tel:[phone] [facility] No Information Otoniel Wang. [address] [place] [address], [address] [place] [address], [place], [place], 517855458, [place]. tel:[phone] [facility], [address] [place] [address], [place], [place], 582547540, [place] tel:[phone] [facility] No Information [facility]. [address] [place] [address], [id number], [place]. tel:[phone] MD_Follow Up Level 3 [facility], [address] [place] [address], [place], [place], 582215564, [place] tel:[phone] [facility] Opioid type dependence, continuous useLumbosacral spondylosis without myelopathyComplete rupture of rotator cuff Dandridgesamson Stevens. [address] [place] [address], [place], [place], 348863110, [place]. tel:[phone] [facility], [address] [place] [address], [place], [place], 442989608, [place] tel:[phone] [facility] No Information Beth Stevens. [address] [place] [address], [place], [place], 007916301, [place]. tel:[phone] [facility], [address] [place] [address], [place], [place], 149489201, [place] tel:[phone] [facility] No Information [facility]. [address] [place] [address], [id number], [place]. tel:[phone] MD_Follow Up Level 4 [facility], [address] [place] [address], [place], [place], 943475681, [place] tel:[phone] [facility] back pain (chief complaint)s houlder pain (chief complaint) No Information Del Avalos. [address] [place] [address], [id number], [place]. tel:[phone] MD_Follow Up Level 4 [facility], [address] [place] [address], [place], [place], 842489545, [place] tel:[phone] [facility] shoulder pain (chief complaint) Osteoarthrosis, localized, primary, involving shoulder regionOther specified disorders of bursae and tendons in shoulder regionMyalgia and myositis, unspecifiedComplete rupture of rotator cuff Babatunde Jauregui. [address] [place] [address], [address], [place]. tel:[phone] NP_Office Visit Level 4 [facility], [address] [place] [address], [place], [place], 995111441, [place] tel:[phone] [facility] shoulder pain (chief complaint) Lumbosacral spondylosis without myelopathyOther specified disorders of bursae and tendons in shoulder regionBicipital tenosynovitisMyalgia and myositis, unspecified Babatunde Jauregui. [address] [place], [address], . tel:[phone] MD_Follow Up Level 4 [facility], [address] [place] [address], [place], [place], 561981873, [place] tel:[phone] [facility] back pain (chief complaint)s houlder pain (chief complaint) No Information Mathis Angélica Sheri Avalos. [address] [place], [place], [address], [place]. tel:[phone] [facility], [address] [place] [address], [place], [place], 932345737, [place] tel:[phone] [facility] No Information Beth Stevens. [address] [place] [address], [place], [place], 410124783, [place]. tel:[phone] [facility], [address] [place] [address], [place], [place], 849319080, [place] tel:[phone] [facility] No Information [facility]. [address] [place] [address], [id number], [place]. tel:[phone] [facility], [address] [place] [address], [place], [place], 942429266, [place] tel:[phone] [facility] No Information Christianne Grimes. [address], [address], [place], [place], [address], [place]. tel:[phone] [facility], [address] [place] [address], [place], [place], 690584022, [place] tel:[phone] [facility] No Information Beth Stevens. [address] [place] [address], [address] [place] [address], [place], [place], 742219838, [place]. tel:[phone] [facility], [address] [place], [place] [address], [place], [place], [address]642338, [place] tel:[phone] [facility] No Information [facility]. [address] [place] [address], [id number], . tel:[phone] MD_Follow Up Level 5 [facility], [address] [place], [place] [address], [place], [place], 653936244, [place] tel:[phone] [facility] back pain (chief complaint) No Information Yoli Reshma. [address] [place] [address], [address], . tel:[phone] [facility], [address] [place] [address], [place], [place], 858692881, tel:[phone] [facility] back pain (chief complaint) Adjustment disorder with mixed anxiety and depressed mood Shiva Samano. [address] [place] [address], [address], [place]. tel:[phone] 1829 [facility], [address] [place], [place] [address], [place], [place], 129019441, [place] tel:[phone] [facility] No Information Beth Stevens. [address] [place] [address], [facility], [place], [place], [address]04[address]146, [place]. tel:[phone] [facility], [address] [place], [place] [address], [place], [place], [address], [place] tel:[phone] [facility] No Information [facility]. [address] [place] [address], [id number], [place]. tel:[phone] NP_Office Visit Level 5 [facility], [address] [place], [place] [address], [place], [place], 746[address]34, [place] tel:[phone] [facility] arm pain (chief complaint) Hypertension, UnspecifiedOpioid type dependence, continuous useTherapeutic Drug MonitoringSciatica Due To Displacement Of Lumbar DiscPostlaminectomy syndrome of thoracic regionLumbosacral spondylosis without myelopathySpinal Stenosis, Lumbar Region, With Neurogenic Claudication Robert Rodríguez. [address] [place] [address], [address] Floor, [place], [place], [id number], [place]. tel:[phone] Family History Family Member Type Diagnosis Age [...] type Covered democrat ID Authoriza tion(s) Medicare [id number] [place] MCR Supplement Plan [id number] Social History Type Description Quantity Date Captured [...]
--- NOTE | 2025-03-30 11:36 | AM.OFFVISNUR ---
Intake Visit Reasons: Evenity #9 Allergies bee pollen Allergy (Unknown, Verified 03/10/25 11:11) Unknown house dust mite Allergy (Unknown, Verified 03/10/25 11:11) Unknown adhesive tape Adverse Reaction (Intermediate, Verified 03/10/25 11:11) Rash Office Meds romosozumab-aqqg 210 mg/2.34 mL(105 mg/1.17 mL x2)subcutaneous syringe Performing Provider: Rommel Lopez MD Performing Location: [facility] Endocrinology Administered by: Aydee White RN on 03/30/25 11:36 Dose Route Admin Location Dispensed Lot Number Expiration Date NDC Field Installer 210 mg subcut bilateral upper arms 2.34 mL [id number] 05/28/27 02933-775-20 [employer] Total Dispensed Waste 2.34 mL 0 % Comments: Pt reported some slight back pain from previous injection that went away after about a week. Other than that, no other adverse reactions reported. Pt tolerated injection well. Pt scheduled in 4 weeks for next appt with no further questions. Assessment & Plan Assessment & Plan Orders: Orders AMB Romosozumab Injection Patient Supplied Today M81.0 - Age-related osteoporosis without current pathological fracture Coding
--- OUTSIDE RECORDS SUMMARY | 2025-03-30 12:49 | XMS_ITS | Encounter Summary ---
Author Organization [facility] Address [address] [place] [id number] Phone Care Team Providers Care Internet And E Business Project Manager Name Role Phone Ne Cho MD Unavailable [phone] Ling Middleton NP Primary Care Provider + Encounter Details Date Type Department Care Team (Late st Contact Info) Description 12/05/2021 Transcribe Orders [facility] [address] [place] [address] Darrin Gómez MD, MS [address] [id number] Social History Tobacco Use Types Packs/Day Years Used Date Smoking Tobacco: Former Cigarettes 0.8 10 1 958 - 0243 Smokeless Tobacco: Never Alcohol Use Standard Drinks/Week Comments Yes 10 (1 standard drink = 0.6 oz pu re alcohol) Education Answer Date Recorded Are you interested in help w ith more adult education (for example, completing high school, GED, job training, learning the Citizen [place] language, technical skills, or developing parenting skills)? [...] as of this encounter Plan of Treatment Not on file documented as of this encounter Goals Goal Patient Goal Type Associated Problems Recent Progress Patient-Stated? Author Coordinate Care Lifestyle Coordination of complex care No Jill Babcock, [place] Note: 1. Assist with coordination of care as needed. 2. Assess patient's knowledge of health conditions and provide education as needed. 3. Ongoing assessment of need for community resources and provide information as needed. Increase Understanding of Health Issues & Promote Good Health Management SKills Lifestyle Chronic back pain No Jill Babcock, [place] Note: 1. Pt will call Dr. Kc's office to ensure she is on cancellation list for next f/u appt which was pushed out over 1mo. 2. Pt will continue to use bone stimulator as directed. 3. Pt will attend all post operative appointments and adhere to treatment recommendations. Encourage Healthy Nutrition/Exercise Lifestyle Impaired functional mobility and activity tolerance No Jill Babcock, [place] Note: 1. Pt will explore exercise classes at [facility] once cleared by spinal surgeon. 2. Pt will engage in Weight Watchers classes. documented as of this encounter Visit Diagnoses Not on filedocumented in this encounter Additional Health Concerns Assessment Noted Time PHQ-2 Depression Total Score: 0 03/12/20 18 1:28 PM EDT documented as of this encounter Care Teams Internet And E Business Project Manager Relationship Specialty Start Date End Date Ling Middleton NP [address] [place] [id number] PCP - General Family Medicine 07/05/21 Ne Cho MD [address] [place] [address], [address] BRIN[place] Izquierdo [id number] [email or web address] Insurance Assigned Provider 11/04/19 08/04/22 documented as of this encounter Additional Source Comments The information contained in this document represents components of the legal health record. It is not the complete legal health record.[facility]
--- OUTSIDE RECORDS SUMMARY | 2025-03-30 12:49 | XMS_ITS | Encounter Summary ---
Author Organization [facility] Address [address] [place] [address] Phone Care Team Providers Care Curam Developer Name Role Phone Ne Cho MD Unavailable [phone] Unknown, Unknown Primary Care Provider Ling Blanc NP Primary Care Provider + Reason for Referral * Consultation (Elective) - Closed Specialty Diagnoses / Procedures Referred By Contac t Referred To Contact Pulmonary Disease Diagnoses Wheezing Ling Middleton NP Phone: tel: fax: [address] [address] Phone: tel: Referral ID Status Reason Start Date Expiration Date Visits Re quested Visits Authorized [id number] Closed 06/26/2021 06/26/2022 1 1 Encounter Details Date Type Department Care Team (Late st Contact Info) Description 06/26/2021 Transcribe Orders [facility] Pulmonary, Allergy and Critical Care Medicine [address] [place], [place] [phone] Ling Middleton NP [address] [place] [address] [phone] Wheezing (Primary Dx) Social History Tobacco Use Types Packs/Day Years Used Date Smoking Tobacco: Former Cigarettes 1 8 - 1966 Smokeless Tobacco: Never Education Answer Date Recorded Are you interested in help w ith more adult education (for example, completing high school, GED, job training, learning the [place] language, technical skills, or developing parenting skills)? [...] Associated Diagnoses Order Schedule Ambulatory referral to [facility] Pulmonology Outpatient Referral Routine Wheezing Ordered: [...] 1. Pt will explore exercise classes at [facility] once cleared by spinal surgeon. 2. Pt will engage in Weight Watchers classes. documented as of this encounter Visit Diagnoses Diagnosis Wheezing- Primary documented in this encounter Additional Health Concerns Assessment Noted Time PHQ-2 Depression Total Score: 0 03/12/20 18 1:28 PM EDT documented as of this encounter Care Teams Curam Developer Relationship Specialty Start Date End Date Unknown, Unknown, MD PCP - General 06/28/21 07/04/21 Ling Middleton NP [address] [place] [id number] PCP - General Family Medicine 07/05/21 Ne Cho MD [address] [place] [address], [address] [place] [address] [email or web address] Insurance Assigned Provider 11/04/19 08/04/22 documented as of this encounter Additional Source Comments The information contained in this document represents components of the legal health record. It is not the complete legal health record.[facility]
--- OUTSIDE RECORDS SUMMARY | 2025-03-30 12:50 | XMS_ITS | Clinical Summary ---
Author Organization [facility] Address [address] [place] [phone] Phone Care Team Providers Care Sas Etl Developer Name Role Phone Ling Middleton NP Primary Care Provider + Allergies No known active allergies Medications docusate sodium (COLACE) 100 MG capsule 1 tablet as needed 02/01/20 17 Active pantoprazole (PROTONIX) 40 MG tablet Take 40 mg by mouth daily. Active cholecalciferol (VITAMIN D3) 2,000 unit tablet 1 tablet Active fluticasone propionate (FLONASE) 50 mcg/actuation nasal spray 1 spray per nostril once daily 1 Bottle 3 09/20/19 21 Active amoxicillin (AMOXIL) 500 MG capsule TAKE 4 CAPSULES BY MOUTH 1 HOUR BEFORE DENTAL APPOINTMENT DIRECTED 10/20/19 21 Active atorvastatin (LIPITOR) 10 MG tabletIndications: Mixed hyperlipidemia TAKE 1 TABLET(10 MG) BY MOUTH DAILY 90 tablet 3 12/14/19 21 Active losartan (COZAAR) 100 MG tabletIndications: Benign essential hypertension TAKE 1 TABLET(100 MG) BY MOUTH DAILY 90 tablet 3 12/14/19 21 Active amLODIPine (NORVASC) 10 MG tabletIndications: Benign essential hypertension TAKE 1 TABLET(10 MG) BY MOUTH DAILY 90 tablet 3 12/14/19 21 Active albuterol 90 mcg/actuation inhaler INHALE 2 PUFFS INTO THE LUNGS EVERY 6 HOURS NEEDED FOR WHEEZING 8.5 g 2 02/08/20 21 Active traZODone (DESYREL) 100 MG tabletIndications: Insomnia TAKE 1 TABLET(100 MG) BY MOUTH EVERY NIGHT AT BEDTIME 30 tablet 03/13/20 21 Active sertraline (ZOLOFT) 50 MG tabletIndications: Moderate episode of recurrent major depressive disorder TAKE 1 TABLET BY MOUTH DAILY 30 tablet 03/13/20 21 Active Additional Information Patient taking differently: 75 mg Oral Daily, TAKE 1 TABLET BY MOUTH DAILY, Reported on 08/29/2021 levocetirizine (XYZAL) 5 MG tablet Take 5 mg by mouth every evening. Active ipratropium (ATROVENT) 21 mcg (0.03 %) nasal sprayIndications:A llergic rhinitis, unspecified seasonality, unspecified trigger 2 sprays by Nasal route every 12 (twelve) hours. 30 mL 5 08/29/19 22 Active cetirizine (ZYRTEC) 10 MG tablet Take 10 mg by mouth daily. Active fluticasone furoate-vilanteroL (BREO ELLIPTA) 100-25 mcg/dose inhalerIndications :Former smoker Inhale 1 puff into the lungs daily. 180 each 3 01/09/20 22 Active Active Problems Problem Noted Date Diagnosed Date Restrictive lung disease 01/08/2022 Assessment & Plan (01/08/2022 3:59 PM EDT): Given the markedly impaired ERV, I suspect this is related to extrapulmonary restriction and the imprint of body habitus. A component of height loss secondary to spinal surgeries may be playing a role as well. Her chest x-ray, thankfully, revealed no evidence of interstitial lung disease, pleural effusions or significant skeletal deformity. Obesity with body mass index (BMI) of 35.0 to 39.9 without comorbidity 01/08/2022 Assessment & Plan (01/08/2022 4:00 PM EDT): Activity program and weight loss were encouraged. Former smoker 01/08/2022 Assessment & Plan (01/08/2022 4:01 PM EDT): She states Breo helps with wheezing. While spirometry is are normal, mild underlying asthma is not completely ruled out. For now, would continue daily Breo given perceived clinical benefits, but will try decreasing to the low-dose inhaled steroid component. FOREMAN (dyspnea on exertion) 12/05/2020 Assessment & Plan (01/08/2022 4:00 PM EDT): This is likely multifactorial, but I suspect deconditioning and obesity are playing a role here. No significant underlying pulmonary or airways disease has been identified in our work-up. I have encouraged the patient to remain active, continue water aerobic activities at the pool and try to walk on her off days. Assessment & Plan (08/29/2021 3:37 PM EST): Will obtain baseline pulmonary function studies and chest x-ray. A repeat echocardiogram could be considered as next step. There is no clinical suggestion of thromboembolic disease. Her hemoglobin was normal back in November. Assessment & Plan (12/05/2020 2:31 PM EDT): Diff dx includes asthma., CAD. I asked her to trial albuterol next time sx occur. I referred her for cardiac consult. Trochanteric bursitis of right hip 12/05/2020 Overview (12/05/2020): Had steroid shot w [facility] 10/2020 Left foot pain 08/03/2020 Overview (12/05/2020): PLantar fasciitis- steroid shot w Dr Butt 08/2020. Has orthotics. Assessment & Plan (08/03/2020 4:04 PM EST): Brenda has left foot pain. I reviewed a recent MRI showing left-sided plantar fasciitis and a left heel spur. I referred her to a new tank welder today and she will call for an appointment. She will call if things get worse or if they change. She understands and agrees. Lumbar post-laminectomy syndrome 05/26/2020 Enthesopathy of hip region 05/26/2020 Disorder of bursae of shoulder region 05/26/2020 Chronic pain of right ankle 12/03/2019 Assessment & Plan (01/05/2020 1:01 PM EDT): I recommend she call [facility] and request a second opinion from Dr. Michael. In the meantime I encouraged her to continue physical therapy. She agrees with the plan. Assessment & Plan (12/03/2019 4:24 PM EDT): A virtual visit was used during the COVID-[address] of an in-person visit. This real-time interactive virtual clinical encounter was conducted using telephone-only technology from clinic or home office. The patient participated in the visit from home/temporary residence or other location as specified below. Consent for virtual care, including informing the patient that insurance will be billed, and that in-person care is available in case of emergencies or as needed otherwise, was discussed at the time of scheduling. Pt participated in visit from home. Brenda has continued right ankle pain- for about a month now. She has tried colchicine as well as prednisone but both have not helped her and the prednisone she developed some side effects to. I advised her to get the x-ray done as well as some blood work done to evaluate what is going on. I advised her to drink plenty water to stay well-hydrated. She is undergoing a low uric acid diet at this time. She should follow-up with her PCP next week. She will call if this gets worse. She understands and agrees with this plan. Other chronic pain 07/01/2018 Assessment & Plan (12/05/2020 2:29 PM EDT): I do think there is a component of opioid induced hyperalgesia. I do not recommend increasing her oxycodone dose. She doesn't wish to try adjuvant pain medications as she's tried a few, including gabapentin & had side effects. She will continue current dose of oxycodone, tylenol and meloxicam Assessment & Plan (03/08/2020 2:05 PM EDT): Increase gabapentin to 200 mg twice daily Assessment & Plan (02/02/2020 2:05 PM EDT): Pt asked about increasing oxycodone dose. I do not recommend this. I am already concerned re opioid induced hyperalgesia. We will restart gabapentin. Possible side effects reviewed. FU 4 weeks Assessment & Plan (07/02/2019 2:53 PM EST): stable Assessment & Plan (03/04/2019 2:45 PM EDT): Her chronic back pain is stable. Her neck pain and hip pain continue to be an issue but she is a lot more functional than she was this time last year. She is going to hold off on radiofrequency ablation, she has a lot of doubts about this and she feels that her current level of pain is tolerable. Assessment & Plan (09/02/2018 2:46 PM EST): Transferring to Dr Antony for pain management. Struggling w R SI pain & chronic neck pain. Has OA in multiple joints. Has undergone multiple spine surgeries. Oxycodone rx w fill date of 09/10 given today Assessment & Plan (07/01/2018 6:51 PM EST): Pt is amenable to tapering off fentanyl patch. We will decrease her to 12 mcg patch. She can use acetaminophen & oxycodone for breakthrough pain. Encouraged to swim every other day. She is reminded to book FU w Dr Trinh. FU with me in 1 month Stress incontinence of urine 07/01/2018 Assessment & Plan (07/02/2019 2:53 PM EST): Continue pelvic floor PT Assessment & Plan (07/01/2018 6:50 PM EST): Pt UA unremarkable. Not sent for UC because she in on antibiotics from recent resipiratory infection. I do recommend she resume kegel exercises. I also asked her to inform her sinal surgeon since she noticed significant worsening since her spinal surgery. She will FU with me in 1 month for recheck Coordination of complex care 03/12/2018 Advanced directives, counseling/discussion 03/12 Impaired functional mobility and activity tolera nce 03/12/2018 Ankle edema 02/18/2018 Assessment & Plan (08/03/2020 4:04 PM EST): Brenda has lower leg edema. I advised her to stop her anti-inflammatory medication as this might be affecting her kidneys. I want her to get a CMP done and I will evaluate her electrolytes and kidney functions. I advised her to elevate her feet during the day to call if things get worse. She is to follow-up with her PCP in 1 month. She understands and agrees. Assessment & Plan (02/18/2018 1:18 PM EDT): This looks like venous insufficiency but she does have some crackles on pulmonary exam. I have ordered a BNP and echocardiogram today. The fact that it is bilateral and really only affecting the ankle and feet makes DVT unlikely. I did recommend that she restart compression stocking use. Right foot pain 01/22/2018 Overview (12/05/2020): Hx Posterior tibialis tenosynovitis- [facility] Plantar Fasciitis Dr Perez. Steroid shot ~ helped. Has orthotics Assessment & Plan (03/08/2020 2:06 PM EDT): I recommend she continue with physical therapy exercises. We discussed the risks and benefits of surgery. My main concern is that surgery will require nonweightbearing for some time and this always aggravates her back pain and resulting deconditioning. We discussed taking more a palliative approach to her pain management. Assessment & Plan (01/22/2018 10:11 AM EDT): Discussed appropriate foot wear. Exercises given Allergic rhinitis 07/02/2017 Assessment & Plan (08/29/2021 3:37 PM EST): Continue Flonase. Add back Atrovent nasal spray. Previously seen by ENT. Assessment & Plan (05/26/2020 10:34 PM EDT): Start flonase. Change from claritin to xyzal Referred to allergy Breast calcification seen on mammogram 7 Overview (07/02/2017): Seen 12/2014, stable 06/2015 Neck pain 07/02/2017 Assessment & Plan (12/01/2018 2:51 PM EDT): Following w Dr Antony. Sx are stable/ slightly improved Chronic cough 07/02/2017 Assessment & Plan (08/29/2021 3:38 PM EST): I suspect her cough is likely secondary to postnasal drip and a component of GERD. Asthma or some other underlying obstructive airways disease is a possible contributor as well. There is no clinical suggestion of heart failure. An echocardiogram performed a few years ago was essentially normal. At this time, we will continue her PPI. We will continue Flonase and add back Atrovent nasal spray. We will continue high-dose Breo and obtain baseline pulmonary function studies as well as a chest x-ray. We will hold off on pursuing chest CT at this time. She may have had a CT of the chest in the past according to records, though where and when remains elusive (and patient does not recall). Assessment & Plan (05/26/2020 10:39 PM EDT): Recommend she tx the PND w flonase and antihistamine. Referred to allergy. Depression with anxiety 07/02/2017 Assessment & Plan (12/05/2020 2:30 PM EDT): She decreased her own dose & did ok. Continue sertraline 50 mg Assessment & Plan (02/02/2020 2:03 PM EDT): Stable, continue sertraline 75 mg Assessment & Plan (10/01/2019 2:57 PM EST): She was encouraged to increase dose back to 75 mg, which is what I thought she was taking. I think depression and anxiety contributes to her concerns about her memory. She had a very normal Mini-Mental Status exam and seems quite sharp when I see her. Assessment & Plan (09/02/2018 2:42 PM EST): Continue sertraline 75 mg. Gabapentin may help w anxiety too Assessment & Plan (10/02/2017 4:41 AM EST): Increase sertraline to 75 mg, continue therapy Drug-induced constipation 07/02/2017 Assessment & Plan (12/18/2017 10:46 AM EDT): Increase fluids, continue daily colace, use metamucil as needed Benign essential hypertension 07/02/2017 Assessment & Plan (12/05/2020 2:23 PM EDT): stable Assessment & Plan (02/02/2020 2:04 PM EDT): stable Assessment & Plan (12/09/2019 11:07 AM EDT): Brenda is taking her blood pressure medication as directed. Assessment & Plan (10/01/2019 2:57 PM EST): Stable, continue current regimen Assessment & Plan (03/04/2019 2:46 PM EDT): Stable Assessment & Plan (12/01/2018 2:53 PM EDT): Stable. Congratulated re Healthy lifestyle changes, but discussed risks of strict keto diet . Assessment & Plan (06/03/2018 8:02 PM EST): Stable continue current regimen Assessment & Plan (03/18/2018 12:02 PM EDT): Well controlled Assessment & Plan (10/02/2017 4:40 AM EST): Stable on current regimen, labs ordered GERD (gastroesophageal reflux disease) 7 Assessment & Plan (08/29/2021 3:37 PM EST): Continue PPI. Previously seen by GI. Adequate control of reflux symptoms is important in the setting of underlying obstructive lung disease. Hyperlipidemia 07/02/2017 Assessment & Plan (03/04/2019 2:45 PM EDT): Stable Insomnia 07/02/2017 Assessment & Plan (12/01/2018 2:52 PM EDT): Stopped gabapentin but trazodone 100 mg now working well for her. Assessment & Plan (09/02/2018 2:43 PM EST): Start gabapentin for insomnia, pain & anxiety. She will wean off trazodone, decreasing to 50 mg, overlapping w gabapentin 300 mg nightly. After a week, if sleeping well she will try eliminating trazodone. She will call to let me know how it goes. Lumbar stenosis 07/02/2017 Overview (12/18/2017): MRI lumbar: prominent dextroscoliosis mid lumbar spine, mild stairstep retrolisthesis L1-L4, spinal stenosis & degenerative changes. Severe R nerual foraminal stenosis with L5 nerve root compression S/p spinal surgery w Dr Kc 11/26/17 Dr. Kc, [place] Assessment & Plan (05/06/2018 8:32 PM EDT): Patient with complex chronic pain status post multiple spinal surgeries. She has been using fentanyl patch 25 mcg, this is been tapered down from 37 mcg. This last month she excessively used oxycodone due to pain flare. I think she would be better served in a comprehensive pain management clinic. She was referred to [facility]. For the meantime we will continue current medication doses and she was given refills today. Assessment & Plan (12/18/2017 10:46 AM EDT): She will continue current dose of fentanyl patches (37 mg). She returned unfilled dilaudid rx from 12/12 from my office since she got the rx from Dr Abreu office in time. She willc continue gradually weaning down dilaudid. We discussed in future weaning fentanyl down as well. She will continue PT & FU w me in 8 weeks. She is seeing Dr Kc in January Assessment & Plan (07/02/2017 2:13 PM EST): As pain control improving w PT she delayed surgery Lumbosacral radiculopathy 07/02/2017 Assessment & Plan (10/01/2019 2:58 PM EST): She is having more right hip pain which seems to be secondary to her chronic radiculopathy. She is benefiting from physical therapy. She is following with shaper setter Assessment & Plan (12/01/2018 2:52 PM EDT): No longer having radiating pain but low back pain is chronic. Continue current dose of oxycodone. Encouraged to continue exercising. Assessment & Plan (08/05/2018 1:35 PM EST): Understands she can not refill oxycodone early, fill date 07/12 and that if further meds are lost I will no longer prescribe her controlled substances. Assessment & Plan (06/03/2018 8:00 PM EST): Continue current pain medication regimen w fentanyl patch & oxycodone for btp. I am sending her to pain management for consult regarding pain management options going forward with her chronic pain, which has been a continuous struggle. Assessment & Plan (03/18/2018 12:01 PM EDT): Continue current pain medication regimen. FU 3 months. Assessment & Plan (02/18/2018 1:15 PM EDT): She will continue current pain regimen and continue with physical therapy. Fentanyl patch was refilled today. She will call when she needs refill of oxycodone for breakthrough pain Assessment & Plan (01/22/2018 10:10 AM EDT): She will taper from fentanyl 37 mcg patch to 25 mcg patch. She was given oxycodone 5 mg to use BID prn for break through pain. Again reviewed multiple side effects associated w longer term opioid use. She is hopeful she can continue weaning down further & will FU w me in 1 month. Assessment & Plan (10/02/2017 4:43 AM EST): Plans to proceed w surgery. Will continue current pain medication regimen with hope of weaning down post op. Of note urine was collected today for UDS w unexpected results. I suspect lab error as I have low index of suspicion for pt misconduct. I will have her RTC to give another sample & pill count. Mallet finger 07/02/2017 Osteoarthritis of both knees 07/02/2017 Overview (07/02/2017): S/p TKR. surgeon who did TKR advised her to use amox prophylaxis prior to dental procedures Assessment & Plan (12/09/2019 11:08 AM EDT): I advised her to use heat as needed and to take glucosamine/chondroitin as needed to help prevent further arthritis. She understands and agrees. Osteopenia 07/02/2017 Left wrist pain 07/02/2017 Arthritis Assessment & Plan (12/09/2019 11:08 AM EDT): A virtual visit was used during the COVID-[address] of an in-person visit. This real-time interactive virtual clinical encounter was conducted using telephone-only technology from clinic or home office. The patient participated in the visit from home/temporary residence or other location as specified below. Consent for virtual care, including informing the patient that insurance will be billed, and that in-person care is available in case of emergencies or as needed otherwise, was discussed at the time of scheduling. Pt participated in visit from home. I spent 10 minutes on the phone with Brenda today. I advised her to F/U with her PCP regarding her chronic joint pains likely secondary to arthritis. I informed her that she can try heat to the joints and to take her pain medication as directed by her PCP. I also referred her to ortho for a telemedicine note for her joint pains. She is appreciative of this referral. She will call if there is any other issues. Resolved Problems Problem Noted Date Diagnosed Date Resolved Date Acute cystitis without hematuria 06/09/2020 09/08/2020 Assessment & Plan (06/09/2020 4:59 PM EST): Brenda was diagnosed with a urinary tract infection today in the office. I reviewed her urinalysis which shows blood as well as leukoesterase positive. I will send for urine culture and I will update her with the results. I started her on antibiotics today-sent to her pharmacy. She will take them as directed and she will call if there is any other issues. She understands and agrees. Thrush, oral 02/19/2019 07/02/2019 Assessment & Plan (02/19/2019 2:51 PM EDT): Brenda has thrush to the inside of her mouth and she was treated with the above nystatin solution- as directed. She will call if this does not improve or if this gets worse. She understands and agrees. Pseudogout of foot 06/03/2018 0 Overview (11/11/2019): Right foot/ ankle intermittent intense pain & mild swelling. Dx by Dr Caballero in 2018. Given colcrys. Assessment & Plan (11/18/2019 5:02 PM EDT): Completed colcrys with significant improvement but not resolution. Colcrys very expensive. Avoids NSAIDs due to renal risk. Sent prednisone. Side effects reviewed. Assessment & Plan (11/11/2019 3:46 PM EDT): Will tx w course of colchicine. Recommend rest & elevation. Pt advised to follow up if sx worsen or fail to improve. Assessment & Plan (06/03/2018 7:58 PM EST): Pt concerned that she may not be able to continue colcrys due to cost. She will FU w Dr Caballero's office. Chronic back pain 07/02/2017 03/18/2018 Closed displaced fracture of styloid process of left radius 07/02/2017 07/02/2017 HTN (hypertension) 07/02/2017 7 Immunizations Immunization Administration Dates Next Due COVID-19 (Pre-05/20) Pfizer Vaccine, mRNA, PF 09/07/2020,08/17/2020 INFLUENZA, SPLIT VIRUS, TRIV ALENT W/ PRESERVATIVE IM 03/29/2016,06/28/2009 Influenza High-Dose Quadriva lent Preservative Free IM 03/19/2020 Influenza High-Dose Trivalen t Preservative Free IM 05/08/2019,05/08/2018,05/29/2017 Influenza Quadrivalent MDCK w/Preservative IM 05/07/2017 Influenza Trivalent Adjuvant ed Preservative free IM 04/11/2016 Pneumococcal conjugate PCV13 07/16/2018,05/12/20 15 Pneumococcal polysaccharide PPSV23 07/17/2019 Td (adult),2 Lf Tetanus Toxo id, PF, Adsorbed 06/15/2019,06/28/2009 Zoster live 05/11/2015 Family History Medical History Relation Comments Lung disease Neg Hx Social History Tobacco Use Types Packs/Day Years Used Date Smoking Tobacco: Former Cigarettes 0.8 10 1 958 - 8383 Smokeless Tobacco: Never Alcohol Use Standard Drinks/Week Comments Yes 10 (1 standard drink = 0.6 oz pu re alcohol) Education Answer Date Recorded Are you interested in more education? Not on tico e 11/23/2022 Are you concerned about learning? Not on file 11/23/2022 No 11/23/2022 No 11/23/2022 Food Answer Date Recorded Within the past [...] appointments or from getting medications? No 10/17/2020 Digital Access Answer Date Recorded No 12/22/2022 No 12/22/2022 Reliable internet access at home? Not on file 12/22/2022 Device with a working camera? Not on file Comments Unknown Sex and Gender Information Value Date Recorded Sex Assigned at Not on file Legal Sex Female 10:14 PM EDT Gender Identity Not on file Sexual Orientation Not on file Last Filed Vital Signs Vital Sign Reading Time Taken Comments Blood Pressure 116/60 01/08/2022 3:28 PM EDT Pulse 90 01/08/2022 3:28 PM EDT Temperature 36.9 C (98.4 F) 01/08/2022 3:28 PM EDT Respiratory Rate 18 01/08/2022 3:28 PM EDT Oxygen Saturation 95% 01/08/2022 3:28 PM EDT Inhaled Oxygen Concentration - - Weight 81.2 kg (179 lb) 01/08/2022 3:28 PM EDT Height 149.9 cm (4' 11.02 ) 01/08/2022 3:28 PM E DT Body Mass Index 36.13 01/08/2022 3:28 PM EDT Plan of Treatment Health Maintenance Due Date Last Done Comments RSV VACCINE (1 - 1-dose 75+ series) 10/05/2011 DEPRESSION SCREENING 03/12/2019 03/12/2018 CREATININE LEVEL 12/05/2021 12/05/2020, 01/2021, 02/22/2020, Additional history exists POTASSIUM LEVEL 12/05/2021 12/05/2020, 01/2021, 02/22/2020, Additional history exists INFLUENZA VACCINE (#1) 2025 , 03/19/2020, 05/08/2019, Additional history exists COVID-19 VACCINE ( season) 2025 11/15/2021, 05/23/2021, 09/07/2020, Additional history exists Adult Td,Tdap Booster 05/07/2032 05/07/2022 , 06/15/2019, 06/28/2009 OSTEOPOROSIS SCREENING INITIAL (ONE-TIME) Completed 11/19/2013 PNEUMOCOCCAL VACCINES (50+ years) Completed 07/17/2019, 07/16/2018, 05/12/2015 ZOSTER VACCINES Completed 06/26/2021, 02/26, 05/11/2015 HEPATITIS A VACCINES Aged Out No long er eligible based on patient's age to complete this topic HIB VACCINES Aged Out No longer eligi ble based on patient's age to complete this topic MENINGOCOCCAL VACCINES (ACWY) Aged Out No longer eligible based on patient's age to complete this topic MENINGOCOCCAL VACCINES (B) Aged Out N o longer eligible based on patient's age to complete this topic Goals Goal Patient Goal Type Associated Problems Recent Progress Patient-Stated? Author Coordinate Care Lifestyle Coordination of complex care No Jill Babcock, RN Note: 1. Assist with coordination of [...] mobility and activity tolerance No Jill Babcock, RN Note: 1. Pt will explore exercise classes at [facility] once cleared by spinal surgeon. 2. Pt will engage in [employer] classes. Medical Devices Not on file Procedures Procedure Name Priority Date/Time Associated Diagnosis Comments COMPREHENSIVE METABOLIC PANEL Routine 12/05/2020 2:15 PM EDT Benign essential hypertension OUTSIDE BONE DENSITY SCREENING Routine 11/19/2013 from Last 3 Months or Most Recently Relevant to Health Maintenance Results * (ABNORMAL) Comprehensive metabolic panel (12/05/2020 2:15 PM EDT) SODIUM 140 133 - 146 mmol/L [facility] POTASSIUM 4.2 3.3 - 5.1 mmol/L [facility] CHLORIDE 105 96 - 108 mmol/L [facility] CO2 23 21 - 35 mmol/L [facility] BUN 27(H) 6 - 19 mg/dL [facility] CREATININE 0.80 0.5 - 1.5 mg/dL [facility] GLUCOSE 86 70 - 99 mg/dL [facility] ALBUMIN 4.2 3.9 - 4.8 g/dL [facility] TOTAL PROTEIN 7.2 6.5 - 8.0 g/dL [facility] CALCIUM 9.6 8.4 - 10.3 mg/dL [facility] ALKALINE PHOSPHATASE 102 39 - 117 U/L [facility] TOTAL BILIRUBIN 0.3 0.0 - 1.2 mg/dL [facility] AST 24 0 - 37 U/L [facility] ALT 21 0 - 40 U/L [facility] GLOBULIN 3.0 1 - 4.8 g/dL [facility] EGFR 68 >59 mL/min/1.7 3m2 [facility] Comment:Estimated glomerular filtration rate calculated using the CKD-EPI equation. ANION GAP 16 10 - 20 mmol/L [facility] Blood 12/05/2020 2:15 PM EDT 12/05/2020 2:16 PM EDT us Chely Samara Zurba JEWELRY BENCH WORKER LAB BLOOD ORDERABLES Final Re sult [facility] [address] [place] [address] * OUTSIDE BONE DENSITY SCREENING (11/19/2013) BONE DENSITY SCREENING - EXTERNAL osteopenia us Historical Provider MD HEALTH MAINTENANCE Final Result from Last 3 Months or Most Recently Relevant to Health Maintenance Insurance [address] [place] [address] MEDICARE PART A & B [employer] MEDICARE ENHANCE SUPPLEMENT MEDICARE PART A & B [facility] MEDICARE ENHANCE SUPPLEMENT MEDICARE PART A & B [facility] MEDICARE ENHANCE SUPPLEMENT MEDICARE PART A & B MEDICARE ENHANCE SUPPLEMENT MEDICARE PART A & B [facility] MEDICARE ENHANCE SUPPLEMENT MEDICARE PART A & B [facility] MEDICARE ENHANCE SUPPLEMENT MEDICARE PART A & B [facility] MEDICARE ENHANCE SUPPLEMENT MEDICARE PART A & B [facility] MEDICARE ENHANCE SUPPLEMENT MEDICARE PART A & B [facility] MEDICARE ENHANCE SUPPLEMENT Advance Directives For more information, please contact: [phone] (9AM - 5PM [facility], Saturday-Saturday) Documents on File Type Date Recorded Patient Operations Research Group Manager Expl anation Healthcare Proxy 03/28/2018 1:38 PM Care Teams Sas Etl Developer Relationship Specialty Start Date End Date Ling Middleton NP [address] [place] [address] PCP - General Family Medicine 07/05/21 Additional Source Comments The information contained in this document represents components of the legal health record. It is not the complete legal health record.[facility]
== END 2025-03-30 11:34 | disposition home or self-care (01) ==
LOC: HO.ENCR 11:16
PROVIDERS: PCP Physician Assistant; Visit Provider Internal Medicine Endocrinology, Diabetes & Metabolism
DX: M81.0 Age-related osteoporosis without current pathological fracture (principal)

== ENCOUNTER → 2025-03-30 11:15 | Outpatient (BNVA) | payer MEDICARE, OTHER, SELFPAY | PROVIDERS: PCP Physician Assistant; Visit Provider Internal Medicine Endocrinology, Diabetes & Metabolism | DX: M81.0 Age-related osteoporosis without current pathological fracture (principal) | CPT/HCPCS: 96372; J3111 ==

== ENCOUNTER → 2025-03-31 12:57 | Outpatient (REF) | payer MEDICARE, OTHER, SELFPAY ==
--- OUTSIDE RECORDS SUMMARY | 2017-02-20 06:52 | XMS_ITS | Continuity of Care Document ---
Author Organization [place] [employer] [facility] cine Address [address] [facility] 2nd [place] [address] Phone Care Team Providers Care Car Body Inspector Name Role Phone Rodney Campos MD Unavailable [...] Location Reason(s) For Visit Diagnoses Date Provider [facility] [place], [address] [place] [address], [place], [place], [id number], tel:[phone] [facility] No Information Beth Stevens. [address] [place] [address], [address] [place] [address], [place], [place], [id number], [place]. tel:[phone] [facility] [place], [address] [place], [place] [address], [place], [place], [id number], tel:[phone] [facility] Spondyls w/o myelopathy or radiculopathy, lumbosacr region Exton Rodney. [address] [place] [address], [place], [place], [id number], [place]. tel:[phone] [facility] [place], [address] [place] [address], [place], [place], [id number], [place] tel:[phone] [facility] No Information [facility]. [address] [place] [address], [id number], [place]. tel:[phone] [facility] [place], [address] [place] [address], [place], [place], [address], [place] tel:[phone] [facility] Spondyls w/o myelopathy or radiculopathy, lumbosacr region Exton Rodney. [address] [place] [address], [place], [place], [address], [place]. tel:[phone] [facility] [place], [address] [place] [address], [place], [place], [address], [place] tel:[phone] [facility] No Information Surgery [facility]. [address] [place] [address], [id number], [place]. tel:[phone] MD_Follow Up Level 4 [facility] [place], [address] [place] [address], [place], [place], [address], [place] tel:[phone] [facility] [place] Spondylosis without myelopathy or radiculopathy, lumbosacral regionOther spondylosis with radiculopathy, lumbar region Yoli Justice. [address] [place] [address], [address], [place]. tel:[phone] [facility] [place], [address] [place] [address], [place], [place], [address], [place] tel:[phone] [facility] Spondylosis w/o myelopathy or radiculopathy, thoracic region Exton Rodney. [address] [place] [address], [place], [place], [address], [place]. tel:[phone] [facility] [place], [address] [place] [address], [place], [place], [address], [place] tel:[phone] [place] [facility] No Information [facility]. [address] [place] [address], [id number], [place]. tel:[phone] [facility] [place], [address] [place] [address], [place], [place], [address], [place] tel:[phone] [facility] Spondylosis w/o myelopathy or radiculopathy, cervical region Blanca Obregon. [address] [place] [address], [place], [place], [address], [place]. tel:[phone] [facility] [place], [address] [place] [address], [place], [place], [address], [place] tel:[phone] [facility] No Information [facility]. [address] [place] [address], [id number], [place]. tel:[phone] [facility] [place], [address] [place] [address], [place], [place], [address], [place] tel:[phone] [facility] Spondylosis w/o myelopathy or radiculopathy, cervical region Beth Stevens. [address] [place] [address], [place], [place], [address], [place]. tel:[phone] [facility] [place], [address] [place] [address], [place], [place], [address], [place] tel:[phone] [facility] No Information [facility]. [address] [place] [address], [id number], [place]. tel:[phone] [facility] [place], [address] [place] [address], [place], [place], [address], [place] tel:[phone] [facility] Cervical disc disorder w radiculopathy, unsp cervical region Blanca Obregon. [address] [place] [address], [place], [place], [address], [place]. tel:[phone] [facility] [place], [address] [place] [address], [place], [place], [address], [place] tel:[phone] [place] [facility] No Information [facility]. [address] [place] [address], [id number], [place]. tel:[phone] MD_Follow Up Level 4 [facility] [place], [address] [place], [place] [address], [place], [place], [address], [place] tel:[phone] [facility] [place] Postlaminectomy syndrome, not elsewhere classified Yoli Reshma. [address] [place] [address], [address], [place]. tel:[phone] MD_Follow Up Level 4 [facility] [place], [address] [place], [place] [address], [place], [place], [address], [place] tel:[phone] [facility] [place] Spondyls w/o myelopathy or radiculopathy, lumbosacr region Otilia Marin. [address] [place] [address], [id number], [place]. tel:[phone] [facility] [place], [address] [place] [address], [place], [place], [address], [place] tel:[phone] [facility] Cervical disc disorder w radiculopathy, unsp cervical region Beth Stevens. [address] [place] [address], [facility], [place], [place], [address], [place]. tel:[phone] [facility] [place], [address] [place], [place] [address], [place], [place], [address], [place] tel:[phone] [facility] No Information [facility]. [address] [place] [address], [id number], [place]. tel:[phone] MD_Follow Up Level 4 [facility] [place], [address] [place], [place] [address], [place], [place], [address], [place] tel:[phone] [facility] [place] Spondyls w/o myelopathy or radiculopathy, lumbosacr region Broderick Nye. [address] [place] [address], [id number], [place]. tel:[phone] [facility] [place], [address] [place], [place] [address], [place], [place], [address], [place] tel:[phone] [place] [facility] Cervical disc disorder w radiculopathy, unsp cervical region Beth Stevens. [address] [place] [address], [place], [place], [address], [place]. tel:[phone] [facility] [place], [address] [place] [address], [place], [place], [address], [place] tel:[phone] [place] [facility] No Information [facility]. [address] [place] [address], [id number], [place]. tel:[phone] MD_Follow Up Level 4 [facility] [place], [address] [place] [address], [place], [place], [address], [place] tel:[phone] [facility] [place] No Information Yoli Justice. [address] [place] [address], [address], [place]. tel:[phone] [facility] [place], [address] [place] [address], [place], [place], [address], [place] tel:[phone] [facility] No Information Beth Stevens. [address] [place] [address], [place], [place], [address], [place]. tel:[phone] [facility] [place], [address] [place] [address], [place], [place], [address], [place] tel:[phone] [place] [facility] No Information [facility]. [address] [place] [address], [id number], [place]. tel:[phone] MD_Follow Up Level 4 [facility] [place], [address] [place] [address], [place], [place], [address], [place] tel:[phone] [facility] [place] Spondylosis without myelopathy or radiculopathy, lumbosacral region Beth Stevens. [address] [place] [address], [place], [place], [address], [place]. tel:[phone] [facility] [place], [address] [place] [address], [place], [place], [address], [place] tel:[phone] [place] [facility] Postlaminectomy syndrome, not elsewhere classified Blanca Obregon. [address] [place] [address], [place], [place], [address], [place]. tel:[phone] [facility] [place], [address] [place] [address], [place], [place], [address], [place] tel:[phone] [place] [facility] No Information Surgery [facility]. [address] [place] [address], [id number], [place]. tel:[phone] MD_Follow Up Level 4 [facility] [place], [address] [place] [address], [place], [place], [address], [place] tel:[phone] [facility] [place] Other spondylosis with radiculopathy, lumbar region Otilia Marin. [address] [place] [address], [id number], [place]. tel:[phone] MD_Follow Up Level 4 [facility] [place], [address] [place] [address], [place], [place], [id number], [place] tel:[phone] [facility] [place] Other spondylosis with radiculopathy, lumbar region Beléna Tania. [address] [place] [address], [id number], [place]. tel:[phone] [facility] [place], [address] [place] [address], [place], [place], [address], [place] tel:[phone] [facility] [place] No Information Hendersoncristhian LeesVivian. [address] [place] [address], [address], [place]. tel:[phone] [facility] [place], [address] [place] [address], [place], [place], [address], [place] tel:[phone] [place] [facility] No Information [facility]. [address] [place] [address], [id number], [place]. tel:[phone] [facility] [place], [address] [place] [address], [place], [place], [address], [place] tel:[phone] [place] [facility] No Information Beth Stevens. [address] [place] [address], [place], [place], [address], [place]. tel:[phone] [facility] [place], [address] [place] [address], [place], [place], [address], [place] tel:[phone] [facility] [place] No Information Otilia Marin. [address] [place] [address], [id number], [place]. tel:[phone] [facility] [place], [address] [place] [address], [place], [place], [address], tel:[phone] [place] [facility] No Information Arsalanrichardtammy Praveen. [address] [place] [address], [address] [place] [address], [place], [place], [address], [place]. tel:[phone] MD_Follow Up Level 5 [facility] [place], [address] [place] [address], [place], [place], [address], [place] tel:[phone] [facility] [place] No Information Otilia Marin. [address] [place] [address], [id number], . tel:[phone] Behavioral (Psych) 60 mins [facility] [place], [address] [place] [address], [place], [place], [address], [place] tel:[phone] [facility] [place] Spondylosis without myelopathy or radiculopathy, lumbosacral region Hermelinda Peña. [address] [place] [address], [id number], [place]. tel:[phone] [facility] [place], [address] [place] [address], [place], [place], [address], [place] tel:[phone] [place] [facility] No Information [facility]. [address] [place] [address], [id number], [place]. tel:[phone] [facility] [place], [address] [place] [address], [place], [place], [address], [place] tel:[phone] [facility] [place] No Information Beth Stevens. [address] [place] [address], [address] [place] [address], [place], [place], [address], [place]. tel:[phone] [facility] [place], [address] [place] [address], [place], [place], [address], [place] tel:[phone] [place] [facility] No Information Exton Rodney. [address] [place] [address], [place], [place], [address], [place]. tel:[phone] [facility] [place], [address] [place] [address], [place], [place], [address], [place] tel:[phone] [place] [facility] No Information [facility]. [address] [place] [address], [id number], [place]. tel:[phone] [facility] [place], [address] [place] [address], [place], [place], [address], [place] tel:[phone] [place] [facility] No Information Exton Rodney. [address] [place] [address], [place], [place], [address], [place]. tel:[phone] MD_Follow Up Level 4 [facility] [place], [address] [place] [address], [place], [place], [address]85, [place] tel:[phone] [facility] [place] Spondylosis without myelopathy or radiculopathy, lumbosacral region Exton Rodney. [address] [place] [address], [place], [place], [address], [place]. tel:[phone] [facility] [place], [address] [place] [address], [place], [place], [address]35, [place] tel:[phone] [place] [facility] No Information Exton Rodney. [address] [place] [address], [place], [place], [address], [place]. tel:[phone] [facility] [place], [address] [place] [address], [place], [place], [address], [place] tel:[phone] [place] [facility] No Information [facility]. [address] [place] [address], [id number], [place]. tel:[phone] [facility] [place], [address] [place] [address], [place], [place], [address], [place] tel:[phone] [place] [facility] No Information Exton Rodney. [address] [place] [address], [id number], [place]. tel:[phone] [facility] [place], [address] [place], [place] [address], [place], [place], [address], [place] tel:[phone] [place] [facility] No Information [facility]. [address] [place] [address], [id number], [place]. tel:[phone] [facility] [place], [address] [place] [address], [place], [place], [address], [place] tel:[phone] [place] [facility] No Information Beth Stevens. [address] [place] [address], [address] [place] [address], [place], [place], [address]97, [place]. tel:[phone] [facility] [place], [address] [place] [address], [place], [place], [address], [place] tel:[phone] [place] [facility] No Information [facility]. [address] [place] [address], [id number], [place]. tel:[phone] MD_Follow Up Level 3 [facility] [place], [address] [place] [address], [place], [place], [address], [place] tel:[phone] [facility] [place] Lumbosacral spondylosis without myelopathy Beth Stevesn. [address] [place] [address], [place], [place], [address]05, [place]. tel:[phone] MD_Follow Up Level 3 [facility] [place], [address] [place] [address], [place], [place], [address], [place] tel:[phone] [facility] [place] Knee Pain (chief complaint) Enthesopathy of knee, unspecified Roque Garcia. [address] [place] [address], [address], [place]. tel:[phone] [facility] [place], [address] [place] [address], [place], [place], [address]04, [place] tel:[phone] [place] [facility] No Information Otoniel Wang. [address] [place] [address], [address] [place] [address], [place], [place], [address]22, [place]. tel:[phone] [facility], [address] [place] [address], [place], [place], [address], [place] tel:[phone] [place] [facility] No Information [facility]. [address] [place] [address], [id number], [place]. tel:[phone] MD_Follow Up Level 3 [facility] [place], [address] [place] [address], [place], [place], [address], [place] tel:[phone] [facility] [place] Opioid type dependence, continuous useLumbosacral spondylosis without myelopathyComplete rupture of rotator cuff Extonsamson Stevens. [address] [place] [address], [place], [place], [address], [place]. tel:[phone] [facility] [place], [address] [place] [address], [place], [place], [address], [place] tel:[phone] [place] [facility] No Information Beth Stevens. [address] [place] [address], [place], [place], [address], [place]. tel:[phone] [facility] [place], [address] [place] [address], [place], [place], [address]957[address]15, [place] tel:[phone] [place] [facility] No Information [facility]. [address] [place] [address], [id number], [place]. tel:[phone] MD_Follow Up Level 4 [facility] [place], [address] [place] [address], [place], [place], [address]126, [place] tel:[phone] [facility] [place] back pain (chief complaint)s houlder pain (chief complaint) No Information Del Avalos. [address] [place] [address], [id number], [place]. tel:[phone] MD_Follow Up Level 4 [facility] [place], [address] [place] [address], [place], [place], 1960[address]578, [place] tel:[phone] [facility] [place] shoulder pain (chief complaint) Osteoarthrosis, localized, primary, involving shoulder regionOther specified disorders of bursae and tendons in shoulder regionMyalgia and myositis, unspecifiedComplete rupture of rotator cuff Babatunde Jauregui. [address] [place] [address], [address], [place]. tel:[phone] NP_Office Visit Level 4 [facility] [place], [address] [place] [address], [place], [place], [address]37, [place] tel:[phone] [facility] [place] shoulder pain (chief complaint) Lumbosacral spondylosis without myelopathyOther specified disorders of bursae and tendons in shoulder regionBicipital tenosynovitisMyalgia and myositis, unspecified Babatunde Jauregui. [address] [place], [address], . tel:[phone] MD_Follow Up Level 4 [facility] [place], [address] [place] [address], [place], [place], [address], [place] tel:[phone] [facility] [place] back pain (chief complaint)s houlder pain (chief complaint) No Information Mathis Angélica Sheri Avalos. [address] [place], [place], [id number], [place]. tel:[phone] [facility] [place], [address] [place] [address], [place], [place], [address]33[address]378, [place] tel:[phone] [place] [facility] No Information Beth Stevens. [address] [place] [address], [place], [place], [address], [place]. tel:[phone] [facility] [place], [address] [place] [address], [place], [place], [address]01, [place] tel:[phone] [place] [facility] No Information [facility]. [address] [place] [address], [id number], [place]. tel:[phone] [facility] [place], [address] [place] [address], [place], [place], [id number], [place] tel:[phone] [facility] [place] No Information Christianne Grimes. [address] [facility], [address], [place], [place], [address], [place]. tel:[phone] [facility] [place], [address] [place] [address], [place], [place], [address]26, [place] tel:[phone] [place] [facility] No Information Beth Stevens. [address] [place] [address], [address] [place] [address], [place], [place], [address], [place]. tel:[phone] [facility] [place], Operated By [facility], [address] [place], [place] [id number], [place], [place], [id number], [place] tel:[phone] [place] [facility] No Information [facility]. [address] [place] [address], [id number], . tel:[phone] MD_Follow Up Level 5 [facility], [place], [facility], [address] [place], [place] [id number], [place], [place], [id number], [place] tel:[phone] [facility], [place], [facility] back pain (chief complaint) No Information Yoli Reshma. [address] [place] [address], [address], . tel:[phone] [facility], [place], [facility], [address] [place] [address], [place], [place], [id number], tel:[phone] [facility] [place], [facility] back pain (chief complaint) Adjustment disorder with mixed anxiety and depressed mood Shiva Samano. [address] [place] [address], [id number], [place]. tel:[phone] [facility], [place], [facility], [address] [place], [place] [id number], [place], [place], [id number], [place] tel:[phone] [place] [facility] No Information Beth Stevens. [address] [place] [address], [facility], [place], [place], [id number], [place]. tel:[phone] [facility], [place], [facility], [address] [place], [place] [id number], [place], [place], [id number], [place] tel:[phone] [place] [facility] No Information [facility]. [address] [place] [address], [id number], [place]. tel:[phone] NP_Office Visit Level 5 [facility], [place], [facility], [address] [place], [place] [id number], [place], [place], [id number], [place] tel:[phone] [facility] [place], [facility] arm pain (chief complaint) Hypertension, UnspecifiedOpioid type dependence, continuous useTherapeutic Drug MonitoringSciatica Due To Displacement Of Lumbar DiscPostlaminectomy syndrome of thoracic regionLumbosacral spondylosis without myelopathySpinal Stenosis, Lumbar Region, With Neurogenic Claudication Robert Rodríguez. [address] [place] [address], [address] Floor, [place], [place], [id number], [place]. tel:[phone] Family History Family Member Type Diagnosis Age [...] type Covered democrat ID Authoriza tion(s) Medicare [id number] [place] MCR Supplement Plan [id number] Social History Type Description Quantity Date Captured [...]
--- NOTE | 2025-03-31 13:00 | HM_ITS ---
* Total monitoring time 7 days. * Underlying rhythm is sinus with an average rate of 59/Min. About 58% of the time, rate < 60/Min. * Rare supraventricular ectopy. * Rare ventricular ectopy. * Transient AV block around 20:00. * Patient marker used with sinus rhythm. * No diary events. MTDD
--- OUTSIDE RECORDS SUMMARY | 2025-03-31 15:19 | XMS_ITS | Encounter Summary ---
Author Organization [facility] Address [address] [place] [address] Phone Care Team Providers Care Neurophysiological Technician Name Role Phone Ne Cho MD Unavailable Unknown, Unknown Primary Care Provider Ling Blanc NP Primary Care Provider + Reason for Referral * Consultation (Elective) - Closed Specialty Diagnoses / Procedures Referred By Contac t Referred To Contact Pulmonary Disease Diagnoses Wheezing Ling Middleton NP Phone: tel: fax: [address] [address] Phone: tel: Referral ID Status Reason Start Date Expiration Date Visits Re quested Visits Authorized [id number] Closed 06/26/2021 06/26/2022 1 1 Encounter Details Date Type Department Care Team (Late st Contact Info) Description 06/26/2021 Transcribe Orders [facility] Pulmonary, Allergy and Critical Care Medicine [address] [place], [place] [id number] Ling Middleton NP [address] [place] [phone] Wheezing (Primary Dx) Social History Tobacco Use Types Packs/Day Years Used Date Smoking Tobacco: Former Cigarettes 1 8 - 1966 Smokeless Tobacco: Never Education Answer Date Recorded Are you interested in help w ith more adult education (for example, completing high school, GED, job training, learning the Turkmen language, technical skills, or developing parenting skills)? [...] 1. Pt will explore exercise classes at [facility] once cleared by spinal surgeon. 2. Pt will engage in Weight Watchers classes. documented as of this encounter Visit Diagnoses Diagnosis Wheezing- Primary documented in this encounter Additional Health Concerns Assessment Noted Time PHQ-2 Depression Total Score: 0 03/12/20 18 1:28 PM EDT documented as of this encounter Care Teams Neurophysiological Technician Relationship Specialty Start Date End Date Unknown, Unknown, MD PCP - General 06/28/21 07/04/21 Ling Middleton NP [address] [place] [address] PCP - General Family Medicine 07/05/21 Ne Cho MD [address] [place] [address], [address] [place] [address] [email or web address] Insurance Assigned Provider 11/04/19 08/04/22 documented as of this encounter Additional Source Comments The information contained in this document represents components of the legal health record. It is not the complete legal health record.[facility]
--- OUTSIDE RECORDS SUMMARY | 2025-03-31 15:19 | XMS_ITS | Patient Health Record ---
[facility] Address [address] [place] [address] Care Team Providers Care Equipment Operator Wage Hand Name Role Phone Allison Ham Primary Care Provider Nyla Sharma Unavailable [phone] Allergies Allergen (clinical drug ingredient) Drug/Non Drug [...] MG as directed Orally 06/28/2020 Active Ipratropium [place] 0.06 % USE 1 SPRAY IN EACH [...] fentaNYL Not-Taking traMADol HCl Not-Serge ing Nasal [place] Active Meloxicam Not-Taking Vitamin D 400 UNIT [...] primary osteoarthritis of the ankle and/or foot (802108120) 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 Plan Of Treatment Pending Test Test Name Order Date MRI : Foot, left 06/28/2020 X ray : Foot, left 3V 05/25/2020 X ray : Foot, right 3V 07/19/2017 X ray : Foot, right 3V 06/19/2019 [id number] NAIL, 6 OR MORE 03/07/2018 [id number] Plate 06/25/2011 32362- Debride <25 sq cm 07/11/2011 [id number] TENDON SHEATH/LIGAMENT 1 08/19/2018 36164,[id number] TENDON SHEATH/LIGAMENT 0 03/07/2018 99761,[id number] TENDON SHEATH/LIGAMENT 1 11845,[id number] TENDON SHEATH/LIGAMENT 0 01/06/2020 25639,[id number] TENDON SHEATH/LIGAMENT 0 04/12/2020 06658- Unna Boot 06/19/2019 X ray : Ankle, right 3V 06/19/2019 Next Appt Details Provider Name:Nyla wang, 04/09/2025 10:30:00 AM, [address] [place] [address], [phone], Insurance Providers Payer Name Payer Address Payer Phone Subscriber Number Group Number Insured Name Patient Relationship to Insured Coverage Start Date Coverage End Date Medicare National Govt [employer] [address] [place] [address] [id number] Brenda Wolf Self - patient is the insured [address] [place] [phone] [id number] Brenda Wolf Self - patient is the [...] Date(Month/Year) right foot hurting diagnosed plantar 07/17/2017 [facility], yaz, 06/15/19- 1 08/19/18 Elizabeth Jay Crum- Spinal sten osis Sx 11/26/2017
--- OUTSIDE RECORDS SUMMARY | 2025-03-31 15:19 | XMS_ITS | Patient Health Record ---
Author Organization [facility] Address [address] [place] [address] Care Team Providers Care Target Protection Specialist Name Role Phone Ling Middleton DNP [...] a day for 30 day(s) Active Ipratropium [place] 0.06 % 2 sprays in e ach nostril Nasally Three times a day for 4 day(s) Active Amoxicillin 500 MG 1 capsule Orally NEEDED FOR DENTIST Active Calcium 500 MG 1 tablet Orally Once a day Active Tramadol & Dietary Manage Prod Active Vitamin D3 Ultra Potency 82567 UNIT 1 tablet Orally as directed Active [...] Problem Status W/U Status Risk Notes Problem 92680639 Rectal bleeding (K62.5) Active confirmed Problem 602966978 Gastro-esophagea l reflux disease without esophagitis (K21.9) Active confirmed Problem 07246748 Cough (R05) Active confirmed Problem 320814295 Urinary incontinence, unspecified type (R32) Active confirmed Plan Of Treatment Pending Test Test Name Order Date XR GI SERIES 07/14/2015 Insurance Providers Payer Name Payer Address Payer Phone Subscriber Number Group Number Insured Name Patient Relationship to Insured Coverage Start Date Coverage End Date MEDICARE OF [place] [address] [place] [address] [id number] KAY COLLINS Self - patient is the insured [employer] [address] [place] THAKKAR [id number] KAY COLLINS Self - patient is the insured Medical (General) History Medical History History ICD Code EGD/colonoscopy 01/03/2006. No evidence of Morse's esophagus. Hyperplastic colon polyp. Seasonal allergic rhinitis hypertension hypercholesterolemia scoliosis arthritis depression Surgical History Surgery Date(Month/Year) Vocal cord polyp 2006 Multiple back and neck surgeries rotator cuff surgery both knee replacement left
--- OUTSIDE RECORDS SUMMARY | 2025-03-31 15:19 | XMS_ITS | Clinical Summary ---
Author Organization [facility] Address [address] [facility] [address] [place] [address] Phone Care Team Providers Care Foreign Food Cook Specialty Name Role Phone Ling Middleton NP Primary [...] spur. I referred her to a new supervisor locomotive today and she will call for an appointment. She will call if things get worse or if they change. She understands and agrees. Lumbar post-laminectomy syndrome 05/26/2020 Enthesopathy of hip region 05/26/2020 Disorder of bursae of shoulder region 05/26/2020 Chronic pain of right ankle 12/03/2019 Assessment & Plan (01/05/2020 1:01 PM EDT): I recommend she call [facility] and request a second opinion from [...] surgery w Dr Kc 11/26/17 Dr. Kc, [place] Assessment & Plan (05/06/2018 8:32 PM EDT): Patient with complex chronic pain status post multiple spinal surgeries. She has been using fentanyl patch 25 mcg, this is been tapered down from 37 mcg. This last month she excessively used oxycodone due to pain flare. I think she would be better served in a comprehensive pain management clinic. She was referred to [facility]. For the meantime we will [...] from physical therapy. She is following with commercial baker helper Assessment & Plan (12/01/2018 2:52 PM EDT): [...] Former Cigarettes 0.8 10 1 958 - 9963 Smokeless Tobacco: Never Alcohol Use Standard Drinks/Week [...] 1. Pt will explore exercise classes at [facility] once cleared by spinal surgeon. 2. [...] EDT) SODIUM 140 133 - 146 mmol/L [facility] POTASSIUM 4.2 3.3 - 5.1 mmol/L [facility] CHLORIDE 105 96 - 108 mmol/L [facility] CO2 23 21 - 35 mmol/L [facility] BUN 27(H) 6 - 19 mg/dL [facility] CREATININE 0.80 0.5 - 1.5 mg/dL [facility] GLUCOSE 86 70 - 99 mg/dL [facility] ALBUMIN 4.2 3.9 - 4.8 g/dL [facility] TOTAL PROTEIN 7.2 6.5 - 8.0 g/dL [facility] CALCIUM 9.6 8.4 - 10.3 mg/dL [facility] ALKALINE PHOSPHATASE 102 39 - 117 U/L [facility] TOTAL BILIRUBIN 0.3 0.0 - 1.2 mg/dL [facility] AST 24 0 - 37 U/L [facility] ALT 21 0 - 40 U/L [facility] GLOBULIN 3.0 1 - 4.8 g/dL [facility] EGFR 68 >59 mL/min/1.7 3m2 [facility] Comment:Estimated glomerular filtration rate calculated using the CKD-EPI equation. ANION GAP 16 10 - 20 mmol/L [facility] Blood 12/05/2020 2:15 PM EDT 12/05/2020 2:16 PM EDT us Chely Samara Zurba [facility] [facility] LAB BLOOD ORDERABLES Final Re sult [facility] [address] [place] [address] * OUTSIDE BONE DENSITY SCREENING (11/19/2013) BONE DENSITY SCREENING - EXTERNAL osteopenia us Historical Provider MD HEALTH MAINTENANCE Final Result from Last 3 Months or Most Recently Relevant to Health Maintenance Insurance [address] [place] [address] MEDICARE PART A & B [employer] MEDICARE ENHANCE SUPPLEMENT MEDICARE PART A & B [facility] MEDICARE ENHANCE SUPPLEMENT MEDICARE PART A & B [facility] MEDICARE ENHANCE SUPPLEMENT MEDICARE PART A & B MEDICARE ENHANCE SUPPLEMENT MEDICARE PART A & B [facility] MEDICARE ENHANCE SUPPLEMENT MEDICARE PART A & B [facility] MEDICARE ENHANCE SUPPLEMENT MEDICARE PART A & B [facility] MEDICARE ENHANCE SUPPLEMENT MEDICARE PART A & B [facility] MEDICARE ENHANCE SUPPLEMENT MEDICARE PART A & B [facility] MEDICARE ENHANCE SUPPLEMENT Advance Directives For more information, please contact: [phone] (9AM - 5PM [facility], Saturday-Saturday) Documents on File Type Date Recorded Patient Chamber Walker Expl anation Healthcare Proxy 03/28/2018 1:38 PM Care Teams Foreign Food Cook Specialty Relationship Specialty Start Date End Date Ling Middleton NP [address] [place] [address] PCP - General Family Medicine 07/05/21 Additional Source Comments The information contained in this document represents components of the legal health record. It is not the complete legal health record.[facility]
--- OUTSIDE RECORDS SUMMARY | 2025-03-31 15:19 | XMS_ITS | Encounter Summary ---
Author Organization [facility] Address [address] [place] [address] Phone Care Team Providers Care Thermoforming Machine Operator Name Role Phone Ne Cho MD Unavailable [phone] Ling Middleton NP Primary Care Provider + Encounter Details Date Type Department Care Team (Late st Contact Info) Description 12/05/2021 Transcribe Orders [facility] [address] [place] [address] Darrin Gómez MD, [place] [address] [id number] Social History Tobacco Use Types Packs/Day Years Used Date Smoking Tobacco: Former Cigarettes 0.8 10 1 958 - 1593 Smokeless Tobacco: Never Alcohol Use Standard Drinks/Week Comments Yes 10 (1 standard drink = 0.6 oz pu re alcohol) Education Answer Date Recorded Are you interested in help w ith more adult education (for example, completing high school, GED, job training, learning the Eritrean language, technical skills, or developing parenting skills)? [...] 1. Pt will explore exercise classes at [facility] once cleared by spinal surgeon. 2. Pt will engage in Weight Watchers classes. documented as of this encounter Visit Diagnoses Not on filedocumented in this encounter Additional Health Concerns Assessment Noted Time PHQ-2 Depression Total Score: 0 03/12/20 18 1:28 PM EDT documented as of this encounter Care Teams Thermoforming Machine Operator Relationship Specialty Start Date End Date Ling Middleton NP [address] [place] [address] PCP - General Family Medicine 07/05/21 Ne Cho MD [address] [place] [address], [address] [place] [address] [email or web address] Insurance Assigned Provider 11/04/19 08/04/22 documented as of this encounter Additional Source Comments The information contained in this document represents components of the legal health record. It is not the complete legal health record.[facility]
== END ==
LOC: HO.CARD 12:57
PROVIDERS: PCP Physician Assistant
DX: R55 Syncope and collapse (principal)
CPT/HCPCS: 93242

== ENCOUNTER → 2025-03-31 13:00 | Outpatient (BNV) | payer MEDICARE, OTHER, SELFPAY | PROVIDERS: PCP Physician Assistant; Visit Provider Internal Medicine | DX: I49.3 Ventricular premature depolarization (principal); I49.49 Other premature depolarization | CPT/HCPCS: 93244 ==

== ENCOUNTER → 2025-04-21 23:59 | Outpatient (BNV) | payer MEDICARE, OTHER, SELFPAY | PROVIDERS: PCP Physician Assistant; Visit Provider Physician Assistant | DX: I10 Essential (primary) hypertension (principal); S81.819A Laceration without foreign body, unspecified lower leg, initial encounter | CPT/HCPCS: G0180 ==

== ENCOUNTER 2025-04-27 13:52 | Outpatient (AMB) | payer MEDICARE, OTHER, SELFPAY ==
--- OUTSIDE RECORDS SUMMARY | 2017-02-20 06:52 | XMS_ITS | Continuity of Care Document ---
Author Organization [employer] [facility] cine Address [address] [facility] 2nd [place] [address] Phone Care Team Providers Care Scrap Burner Name Role Phone Rodney Campos MD Unavailable [...] Reason(s) For Visit Diagnoses Date Provider [facility], [address] [place] [address], [place], [place], [id number], tel:[phone] [facility] No Information Beth Stevens. [address] [place] [address], [address] [place] [address], [place], [place], [id number], [place]. tel:[phone] [facility], [address] [place], [place] [address], [place], [place], [id number], tel:[phone] [facility] Spondyls w/o myelopathy or radiculopathy, lumbosacr region Rockford Rodney. [address] [place] [address], [place], [place], [id number], [place]. tel:[phone] [facility], [address] [place] [address], [place], [place], [id number], [place] tel:[phone] [facility] No Information [facility]. [address] [place] [address], [id number], [place]. tel:[phone] [facility], [address] [place] [address], [place], [place], [id number], [place] tel:[phone] [facility] Spondyls w/o myelopathy or radiculopathy, lumbosacr region Rockford Rodney. [address] [place] [address], [place], [place], [id number], [place]. tel:[phone] [facility], [address] [place] [address], [place], [place], [id number], [place] tel:[phone] [facility] No Information [facility]. [address] [place] [address], [id number], [place]. tel:[phone] MD_Follow Up Level 4 [facility], [address] [place] [address], [place], [place], [id number], [place] tel:[phone] [facility] Spondylosis without myelopathy or radiculopathy, lumbosacral regionOther spondylosis with radiculopathy, lumbar region Yoli Justice. [address] [place] [address], [address], [place]. tel:[phone] [facility], [address] [place] [address], [place], [place], [id number], [place] tel:[phone] [facility] Spondylosis w/o myelopathy or radiculopathy, thoracic region Rockford Rodney. [address] [place] [address], [place], [place], [id number], [place]. tel:[phone] [facility], [address] [place] [address], [place], [place], [id number], [place] tel:[phone] [facility] No Information [facility]. [address] [place] [address], [id number], [place]. tel:[phone] [facility], [address] [place] [address], [place], [place], [address]39, [place] tel:[phone] [facility] Spondylosis w/o myelopathy or radiculopathy, cervical region Blanca Obregon. [address] [place] [address], [place], [place], [id number], [place]. tel:[phone] [facility], [address] [place] [address], [place], [place], [address], [place] tel:[phone] [facility] No Information [facility]. [address] [place] [address], [id number], [place]. tel:[phone] [facility], [address] [place] [address], [place], [place], [address], [place] tel:[phone] [facility] Spondylosis w/o myelopathy or radiculopathy, cervical region Beth Stevens. [address] [place] [address], [place], [place], [address], [place]. tel:[phone] [facility], [address] [place] [address], [place], [place], [address], [place] tel:[phone] [facility] No Information [facility]. [address] [place] [address], [id number], [place]. tel:[phone] [facility], [address] [place] [address], [place], [place], [id number], [place] tel:[phone] [facility] Cervical disc disorder w radiculopathy, unsp cervical region Blanca Obregon. [address] [place] [address], [place], [place], [address]92, [place]. tel:[phone] [facility], [address] [place] [address], [place], [place], [address], [place] tel:[phone] [facility] No Information [facility]. [address] [place] [address], [id number], [place]. tel:[phone] MD_Follow Up Level 4 [facility], [address] [place], [place] [address], [place], [place], [address], [place] tel:[phone] [facility] Postlaminectomy syndrome, not elsewhere classified Yoli Reshma. [address] [place] [address], [address], [place]. tel:[phone] MD_Follow Up Level 4 [facility], [address] [place], [place] [address], [place], [place], [address], [place] tel:[phone] [facility] Spondyls w/o myelopathy or radiculopathy, lumbosacr region Otilia Marin. [address] [place] [address], [id number], [place]. tel:[phone] [facility], [address] [place] [address], [place], [place], [address], [place] tel:[phone] [facility] Cervical disc disorder w radiculopathy, unsp cervical region Beth Stevens. [address] [place] [address], [facility], [place], [place], [id number], [place]. tel:[phone] [facility], [address] [place], [place] [address], [place], [place], [address], [place] tel:[phone] [facility] No Information [facility]. [address] [place] [address], [id number], [place]. tel:[phone] MD_Follow Up Level 4 [facility], [address] [place], [place] [address], [place], [place], [address], [place] tel:[phone] [facility] Spondyls w/o myelopathy or radiculopathy, lumbosacr region Broderick Nye. [address] [place] [address], [id number], [place]. tel:[phone] [facility], [address] [place], [place] [address], [place], [place], [address], [place] tel:[phone] [facility] Cervical disc disorder w radiculopathy, unsp cervical region Beth Stevens. [address] [place] [address], [place], [place], [address], [place]. tel:[phone] [facility], [address] [place] [address], [place], [place], [id number], [place] tel:[phone] [facility] No Information [facility]. [address] [place] [address], [id number], [place]. tel:[phone] MD_Follow Up Level 4 [facility], [address] [place] [address], [place], [place], [id number], [place] tel:[phone] [facility] No Information Yoli Justice. [address] [place] [address], [address], [place]. tel:[phone] [facility], [address] [place] [address], [place], [place], [address]68, [place] tel:[phone] [facility] No Information Beth Stevens. [address] [place] [address], [place], [place], [address], [place]. tel:[phone] [facility], [address] [place] [address], [place], [place], [address]454, [place] tel:[phone] [facility] No Information [facility]. [address] [place] [address], [id number], [place]. tel:[phone] MD_Follow Up Level 4 [facility], [address] [place] [address], [place], [place], [id number], [place] tel:[phone] [facility] Spondylosis without myelopathy or radiculopathy, lumbosacral region Beth Stevens. [address] [place] [address], [place], [place], [id number], [place]. tel:[phone] [facility], [address] [place] [address], [place], [place], [address], [place] tel:[phone] [facility] Postlaminectomy syndrome, not elsewhere classified Blanca Obregon. [address] [place] [address], [place], [place], 240[address], [place]. tel:[phone] [facility], [address] [place] [address], [place], [place], [address]90, [place] tel:[phone] [facility] No Information [facility]. [address] [place] [address], [id number], [place]. tel:[phone] MD_Follow Up Level 4 [facility], [address] [place] [address], [place], [place], [id number], [place] tel:[phone] [facility] Other spondylosis with radiculopathy, lumbar region Otilia Marin. [address] [place] [address], [id number], [place]. tel:[phone] MD_Follow Up Level 4 [facility], [address] [place] [address], [place], [place], [id number], [place] tel:[phone] [facility] Other spondylosis with radiculopathy, lumbar region Beléna Tania. [address] [place] [address], [id number], [place]. tel:[phone] [facility], [address] [place] [address], [place], [place], [address], [place] tel:[phone] [facility] No Information Flensburgcristhian LeesVivian. [address] [place] [address], [address], [place]. tel:[phone] [facility], [address] [place] [address], [place], [place], [address]39[address]89, [place] tel:[phone] [facility] No Information [facility]. [address] [place] [address], [id number], [place]. tel:[phone] [facility], [address] [place] [address], [place], [place], [address]46[address]24, [place] tel:[phone] [facility] No Information Beth Stevens. [address] [place] [address], [place], [place], [address]165[address]468, [place]. tel:[phone] [facility], [address] [place] [address], [place], [place], [address]63, [place] tel:[phone] [facility] No Information Otilia Marin. [address] [place] [address], [id number], [place]. tel:[phone] [facility], [address] [place] [address], [place], [place], [id number], tel:[phone] [facility] No Information Arsalanrichardtammy Praveen. [address] [place] [address], [address] [place] [address], [place], [place], [id number], [place]. tel:[phone] MD_Follow Up Level 5 [facility], [address] [place] [address], [place], [place], [id number], [place] tel:[phone] [facility] No Information Otilia Marin. [address] [place] [address], [id number], . tel:[phone] Behavioral (Psych) 60 mins [facility], [address] [place] [address], [place], [place], 835[address], [place] tel:[phone] [facility] Spondylosis without myelopathy or radiculopathy, lumbosacral region Hermelinda Peña. [address] [place] [address], [id number], [place]. tel:[phone] [facility], [address] [place] [address], [place], [place], 546[address]171, [place] tel:[phone] [facility] No Information [facility]. [address] [place] [address], [id number], [place]. tel:[phone] [facility], [address] [place] [address], [place], [place], [id number], [place] tel:[phone] [facility] No Information Beth Stevens. [address] [place] [address], [address] [place] [address], [place], [place], [address]597967, [place]. tel:[phone] [facility], [address] [place] [address], [place], [place], 389150106, [place] tel:[phone] [facility] No Information Beth Rodney. [address] [place] [address], [place], [place], [id number], [place]. tel:[phone] [facility], [address] [place] [address], [place], [place], 998618219, [place] tel:[phone] [facility] No Information [facility]. [address] [place] [address], [id number], [place]. tel:[phone] [facility], [address] [place] [address], [place], [place], [id number], [place] tel:[phone] [facility] No Information Beth Ordney. [address] [place] [address], [place], [place], 175752351, [place]. tel:[phone] MD_Follow Up Level 4 [facility], [address] [place] [address], [place], [place], [id number], [place] tel:[phone] [facility] Spondylosis without myelopathy or radiculopathy, lumbosacral region Rockford Rodney. [address] [place] [address], [place], [place], 513[address]492, [place]. tel:[phone] [facility], [address] [place] [address], [place], [place], [id number], [place] tel:[phone] [facility] No Information Beth Rodney. [address] [place] [address], [place], [place], 908688905, [place]. tel:[phone] [facility], [address] [place] [address], [place], [place], 052979070, [place] tel:[phone] [facility] No Information [facility]. [address] [place] [address], [id number], [place]. tel:[phone] [facility], [address] [place] [address], [place], [place], 402970146, [place] tel:[phone] [facility] No Information Rockford Rodney. [address] [place] [address], [id number], [place]. tel:[phone] [facility], [address] [place], [place] [address], [place], [place], [address]6510, [place] tel:[phone] [facility] No Information [facility]. [address] [place] [address], [id number], [place]. tel:[phone] [facility], [address] [place] [address], [place], [place], 858482090, [place] tel:[phone] [facility] No Information Beth Stevens. [address] [place] [address], [address] [place] [address], [place], [place], [address]97683824, [place]. tel:[phone] [facility], [address] [place] [address], [place], [place], 136289300, [place] tel:[phone] [facility] No Information [facility]. [address] [place] [address], [id number], [place]. tel:[phone] MD_Follow Up Level 3 [facility], [address] [place] [address], [place], [place], [id number], [place] tel:[phone] [facility] Lumbosacral spondylosis without myelopathy Beth Stevens. [address] [place] [address], [place], [place], [id number], [place]. tel:[phone] MD_Follow Up Level 3 [facility], [address] [place] [address], [place], [place], [id number], [place] tel:[phone] [facility] Knee Pain (chief complaint) Enthesopathy of knee, unspecified Roque Garcia. [address] [place] [address], [address], [place]. tel:[phone] [facility], [address] [place] [address], [place], [place], 032701304, [place] tel:[phone] [facility] No Information Otoniel Wang. [address] [place] [address], [address] [place] [address], [place], [place], 963960413, [place]. tel:[phone] [facility], [address] [place] [address], [place], [place], 781823926, [place] tel:[phone] [facility] No Information [facility]. [address] [place] [address], [id number], [place]. tel:[phone] MD_Follow Up Level 3 [facility], [address] [place] [address], [place], [place], 580805002, [place] tel:[phone] [facility] Opioid type dependence, continuous useLumbosacral spondylosis without myelopathyComplete rupture of rotator cuff Rockfordsamson Stevens. [address] [place] [address], [place], [place], [id number], [place]. tel:[phone] [facility], [address] [place] [address], [place], [place], [id number], [place] tel:[phone] [facility] No Information Beth Stevens. [address] [place] [address], [place], [place], 899469870, [place]. tel:[phone] [facility], [address] [place] [address], [place], [place], 406292062, [place] tel:[phone] [facility] No Information [facility]. [address] [place] [address], [id number], [place]. tel:[phone] MD_Follow Up Level 4 [facility], [address] [place] [address], [place], [place], 438873553, [place] tel:[phone] [facility] back pain (chief complaint)s houlder pain (chief complaint) No Information Del Avalos. [address] [place] [address], [id number], [place]. tel:[phone] MD_Follow Up Level 4 [facility], [address] [place] [address], [place], [place], 463441022, [place] tel:[phone] [facility] shoulder pain (chief complaint) Osteoarthrosis, localized, primary, involving shoulder regionOther specified disorders of bursae and tendons in shoulder regionMyalgia and myositis, unspecifiedComplete rupture of rotator cuff Babatunde Jauregui. [address] [place] [address], [address], [place]. tel:[phone] NP_Office Visit Level 4 [facility], [address] [place] [address], [place], [place], 696709448, [place] tel:[phone] [facility] shoulder pain (chief complaint) Lumbosacral spondylosis without myelopathyOther specified disorders of bursae and tendons in shoulder regionBicipital tenosynovitisMyalgia and myositis, unspecified Babatunde Jauregui. [address] [place], [address], . tel:[phone] MD_Follow Up Level 4 [facility], [address] [place] [address], [place], [place], [id number], [place] tel:[phone] [facility] back pain (chief complaint)s houlder pain (chief complaint) No Information Mathis Angélica Sheri Avalos. [address], [place], [id number], [place]. tel:[phone] [facility], [address] [place] [address], [place], [place], 643796308, [place] tel:[phone] [facility] No Information Beth Stevens. [address] [place] [address], [place], [place], 624588397, [place]. tel:[phone] [facility], [address] [place] [address], [place], [place], 976926431, [place] tel:[phone] [facility] No Information [facility]. [address] [place] [address], [id number], [place]. tel:[phone] [facility], [address] [place] [address], [place], [place], [id number], [place] tel:[phone] [facility] No Information Christianne Grimes. [address] [facility], [address], [place], [place], [id number], [place]. tel:[phone] [facility], [address] [place] [address], [place], [place], 869951090, [place] tel:[phone] [facility] No Information Beth Stevens. [address] [place] [address], [address] [place] [address], [place], [place], 434243700, [place]. tel:[phone] [facility], [address] [place], [place] [address], [place], [place], 889381027, [place] tel:[phone] [facility] No Information [facility]. [address] [place] [address], [id number], . tel:[phone] MD_Follow Up Level 5 [facility], [address] [place], [place] [address], [place], [place], 815006802, [place] tel:[phone] [facility] back pain (chief complaint) No Information Yoli Reshma. [address] [place] [address], [address], . tel:[phone] [facility], [address] [place] [address], [place], [place], [id number], tel:[phone] [facility] back pain (chief complaint) Adjustment disorder with mixed anxiety and depressed mood Shiva Samano. [address] [place] [address], [address], [place]. tel:[phone] [facility], [address] [place], [place] [address], [place], [place], 349883061, [place] tel:[phone] [facility] No Information Beth Stevens. [address] [place] [address], [facility], [place], [place], [id number], [place]. tel:[phone] [facility], [address] [place], [place] [address], [place], [place], 857857146, [place] tel:[phone] [facility] No Information [facility]. [address] [place] [address], [id number], [place]. tel:[phone] NP_Office Visit Level 5 [facility], [address] [place], [place] [address], [place], [place], 453635015, [place] tel:[phone] [facility] arm pain (chief complaint) Hypertension, UnspecifiedOpioid type dependence, continuous useTherapeutic Drug MonitoringSciatica Due To Displacement Of Lumbar DiscPostlaminectomy syndrome of thoracic regionLumbosacral spondylosis without myelopathySpinal Stenosis, Lumbar Region, With Neurogenic Claudication Robert Rodríguez. [address] [place] [address], [address] Floor, [place], [place], [id number], [place]. tel:[phone] Family History Family Member Type Diagnosis Age At Onset Problem (finding) Family history of Subst ance Abuse Problem (finding) Family history of Heart Disease Problem (finding) Family history of High Blood Pressure Problem (finding) Family history of depre ssion Problem (finding) Family history of alcoh olism Problem (finding) Family history of Diabe sofia mellitus Payers Payer name Insurance type Covered republican ID Authoriza tion(s) Medicare [id number] [place] MCR Supplement Plan [id number] Social History Type Description Quantity Date Captured [...]
--- NOTE | 2025-04-27 13:54 | A.OFFVIS_ITS ---
Vital Signs 04/27/25 13:57 Height 4 ft 10.82 in Weight 177 lb 7.554 oz BMI 36.1 BP 128/68 Blood Pressure Location Rt radial Position Sitting Pulse 67 Pulse Source Pulse Oximeter Pulse Oximetry (%) 97 Oxygen Delivery Method Room Air Intake Visit Reasons: Osteoporosis/evenity #10 Intake Note: Patient present today for Osteoporosis follow up and Evenity injection. Bad Cloth Checker Required: No Accompanied by: Self / Same As Patient Allergies bee pollen Allergy (Unknown, Verified 04/27/25 13:57) Unknown house dust mite Allergy (Unknown, Verified 04/27/25 13:57) Unknown adhesive tape Adverse Reaction (Intermediate, Verified 04/27/25 13:57) Rash HPI Comments Details: 89 YO Female is seen in consultation at the request of PCP for Osteoporosis. First diagnosed in 25 yrs ago .Took Fosamax for 1 yr . 25 yrs ago . Never saw endo before . Tolerated treatment well without complication. history of pathologic fracture in right wrist when falling but no ONJ. Has several servings of dietary calcium per day in the form of cheese, broccoli . Stopped Taking Calcium supplement. Takes 2000 IU of Vitamin D daily. Takes PPI, takes anticoagulant Xarelto , antiepileptic or glucocorticoid medication. Does weight bearing exercise 2 days per week in the form of weight exercises . 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 No planned upcoming dental work or extractions. DXA dated 02/28/24:FINDINGS: LEFT FEMUR, NECK: Current: BMD 0.780 g/cm2, Z-score 0.3, T-score -1.9, osteopenia. Baseline: BMD 0.774 g/cm2. LEFT FEMUR, TOTAL: Current: BMD 0.804 g/cm2, Z-score 0.4, T-score -1.6, osteopenia, 5.0% decrease from baseline (<5% change is not significant). Baseline: BMD 0.846 g/cm2. LEFT FOREARM RADIUS 33%: BMD 0.644 g/cm2, Z-score 0.7, T-score -2.6, osteoporosis. IDENTIFIED RISK FACTORS: Early menopause, secondary osteoporosis, height loss. HISTORY OF FRACTURE: None listed. MEDICATIONS: Vitamin D. MM/XR DEXA appendicular skeleton IMPRESSION: 1. DIAGNOSIS: Osteoporosis based on the lowest T-score value of -2.6 in the forearm radius 33% applying World Health Organization criteria. Secondary workup was negative. Currently on Evenity 10 rd injection today. . She has experienced significant back pain both in the low and mid-back regions, affecting her ability to lay down comfortably. Her pain has shown improvement following a series of injections, with the third dose being administered today. There were previous issues with sleeping due to leg cramps. She uses topical Volteran for occasional foot pain with good effect and has a prior wrist fracture without any history of vertebral fractures. [facility]LY [facility] Medical History Paroxysmal A-fib Chronic pain syndrome Left ankle swelling Generalized anxiety disorder Insomnia Major depression, recurrent, chronic Arthritis High blood cholesterol COPD (chronic obstructive pulmonary disease) Urge incontinence Joint pain Chronic back pain HTN (hypertension) Bleeding hemorrhoid Back pain with history of spinal surgery Surgical History History of back surgery History of surgery Family History Father Thrombosis Mother Diabetes Heart rate problem Social History Household Members: None Housing: Assisted Living Facility Do you presently have visiting nurse or other home services: No Alcohol intake: current Alcohol intake frequency: holidays/special occasions only Alcohol type: wine Patient Tobacco Use Status: Former Tobacco user Tobacco use type: Cigarette Cigarettes Per Day: 15 Years Smoked: 10 e-Cigarette/Vaping Use: Never Used Second Hand Smoke Exposure: No service: No Current occupational status: retired Cognitive needs: No Hearing needs: Yes (hearing aids) Vision needs: No Physical Exam Vital Signs: Last Vital Signs Pulse 67 04/27/25 13:57 BP 128/68 04/27/25 13:57 Pulse Ox 97 04/27/25 13:57 Oxygen Delivery Method Room Air 04/27/25 13:57 BMI result Body Mass Index 36.1 Office Meds romosozumab-aqqg 210 mg/2.34 mL(105 mg/1.17 mL x2)subcutaneous syringe Performing Provider: Rommel Lopez MD Performing Location[place] [facility] [place] [facility] Administered by: Rosalinda Gimenez RN on 04/27/25 14:23 Dose Route Admin Location Dispensed Lot Number Expiration Date NDC Psychiatric Attendant 210 mg subcut bilateral upper arm 2.34 mL [id number] 06/27/27 52356-957-7 2 [facility] Total Dispensed Waste 2.34 mL 0 % Comments: Patient tolerated injection well. Denies any adverse reactions with previous injections. Patient scheduled in x4 weeks for next injection. Assessment & Plan Assessment & Plan (1) Osteoporosis: Code(s): M81.0 - Age-related osteoporosis without current pathological fracture Category: Medical Plan: This is a 88-year-old white female with a history of osteoporosis of left forearm. Secondary causes were ruled out. According to orthopedic note, The CT of the lumbar spine shows a fusion from L3 to the sacrum, osteoporosis and thoraco lumbar scoliosis. I explained to the patient why she is not a surgical candidate. The main reason is obviously osteoporosis. While the lumbar spine bone density could not be measured, This suggests the presence of severe osteoporosis of the lumbar spine. There is a prior history of wrist fracture Plan is to continue Evenity for 1 yrs course . We will transition back to alendronate for 1 year in 3 months f Orders: Orders AMB Romosozumab Injection Patient Supplied Today M81.0 - Age-related osteoporosis without current pathological fracture Coding Level of Care Code Est Pt Level 3 (51338) Diagnoses Osteoporosis M81.0
[2025-04-27 13:57] VITALS: BP 128/68; PULSE 67; O2SAT 97; BMI 36.1
--- OUTSIDE RECORDS SUMMARY | 2025-04-27 15:15 | XMS_ITS | Patient Health Record ---
Author Organization [facility] Address [address] [place] [address] Care Team Providers Care Dog Licenser Name Role Phone Ling Middleton DNP Primary Care Provider Elbert Jose Jr Unavailable [phone] Allergies Allergen (clinical drug ingredient) Drug/Non Drug [...] a day for 30 day(s) Active Ipratropium [place] 0.06 % 2 sprays in e ach nostril Nasally Three times a day for 4 day(s) Active Amoxicillin 500 MG 1 capsule Orally NEEDED FOR DENTIST Active Calcium 500 MG 1 tablet Orally Once a day Active Tramadol & Dietary Manage Prod Active Vitamin D3 Ultra Potency 23883 UNIT 1 tablet Orally as directed Active [...] Problem Status W/U Status Risk Notes Problem 58899276 Rectal bleeding (K62.5) Active confirmed Problem 847759626 Gastro-esophagea l reflux disease without esophagitis (K21.9) Active confirmed Problem 96276168 Cough (R05) Active confirmed Problem 093636340 Urinary incontinence, unspecified type (R32) Active confirmed Plan Of Treatment Pending Test Test Name Order Date XR GI SERIES 07/14/2015 Insurance Providers Payer Name Payer Address Payer Phone Subscriber Number Group Number Insured Name Patient Relationship to Insured Coverage Start Date Coverage End Date MEDICARE OF [place] [address] [place] [address] [id number] KAY COLLINS Self - patient is the insured [employer] [address] BRIN[place] THAKKAR [id number] KAY COLLINS Self - patient is the insured Medical (General) History Medical History History ICD Code EGD/colonoscopy 01/03/2006. No evidence of Morse's esophagus. Hyperplastic colon polyp. Seasonal allergic rhinitis hypertension hypercholesterolemia scoliosis arthritis depression Surgical History Surgery Date(Month/Year) Vocal cord polyp 2006 Multiple back and neck surgeries rotator cuff surgery both knee replacement left
--- OUTSIDE RECORDS SUMMARY | 2025-04-27 15:15 | XMS_ITS | Patient Health Record ---
Author Organization [facility] Address [address] [place] [address] Care Team Providers Care Air Analyst Name Role Phone Allison Ham Primary Care Provider Nyla Sharma Unavailable [phone] Allergies Allergen (clinical drug ingredient) Drug/Non Drug Allergy documented on EMR Reaction Allergy Type Onset Date Status Adhesive - Paper Tap e (uncoded) Unknown Allergy Active Grass Mix Pollens Allergen Ext Unknown Drug Allergy Active Cats Unknown Allergy Active Dust Mites Unknown Allergy Active Reason For Referral No Information Medications Medication SIG (Take, Route, Frequency, Duration) Notes Start Date End Date Status Nasal [place] Not-Taki ng Vitamin D 400 UNIT 1 capsule Orally Onc e a day; Duration: 30 day(s) Not-Taking Atorvastatin Calcium 40 MG 1 tablet Oral ly Once a day Active Gabapentin Active Pantoprazole Sodium 40 MG 1 tablet Orall y Once a day Active amLODIPine Besylate 5 MG 1 tablet Orally Once a day Active Zoloft Active traZODone HCl 50 MG 1 tablet at bedtime Orally Once a day; Duration: 30 day(s) Active Colchicine 0.6 MG 1 tablet Orally Active Cephalexin 500 MG TAKE ONE CAPSULE BY MOUTH 3 TIMES A DAY Oral; Duration: 10 Not-Taking Losartan Potassium 10 MG/ML as directed Orally Active fentaNYL Not-Taking traMADol HCl Not-Serge ing Meloxicam Not-Taking HYDROmorphone HCl 2 MG 1 tablet as neede d Orally every 6 hrs Active Piroxicam 20 MG 1 capsule with food Orally Once a day Active Exforge Not-Taking VESIcare 5 MG 1 tablet Orally Once a day Active Amparo-Colace Active fentaNYL Not-Taking Ativan 0.5 MG 1 tablet at bedtime as needed Orally Once a day Active Vitamin B12 100 MCG 1 tablet Orally Once a day; Duration: 30 day(s) Not-Taking Metoprolol & Diet Manage Prod Not-Taking Nightsplint . . . AFO - L1930; Duration: . Not-Taking Feldene 20 MG 1 capsule with food Orally Once a day; Duration: 30 day(s) 07/05/2020 Not-Taking Ipratropium Casco 0.06 % USE 1 SPRAY I N EACH NOSTRIL TWICE A DAY Nasal; Duration: 41 Not-Taking Physical Therapy . . . 2-3x/week; Duration: 3-4 weeks 01/06/2020 Not-Taking Medrol 4 MG as directed Orally 06/28/2020 Not-Taking oxyCODONE HCl as needed Not-Ta mehdi Social History Tobacco Use: Social History Observation Description Date Details (start date - stop date) Never Smoker NA - NA Tobacco use other than smoking: Question Answer Notes Are you an other tobacco user? No Tobacco Control (Standard) Question Answer Notes Tobacco use: Nonsmoker Additional Findings: Tobacco non-user Current no nsmoker AUDIT-C (Standard) Question Answer Notes Did you have a drink contain ing alcohol in the past year? Yes How often did you have a dri nk containing alcohol in the past year? 2 to 4 times a month (2 points) How many drinks did you have on a typical day when you were drinking in the past year? 1 or 2 drinks (0 point) How often did you have six o r more drinks on one occasion in the past year? Never (0 point) Points 2 Interpretation Negative Problems Problem Type SNOMED Code ICD Code Onset Dates Problem Status W/U Status Risk Notes Problem Localized, primary osteoarthritis of the ankle and/or foot (825052134) 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 Vital Signs Blood pressure diastolic 80 mm Hg 04/09/2025 Height 4 ft 11 in in 04/09/2025 Blood pressure systolic 140 mm Hg 04/09/2025 Weight 175 lbs 04/09/2025 BMI 35.34 kg/m2 04/09/2025 Encounters Encounter Location Date Provider Diagnosis [facility] [address] [place] [address] 04/09/2025 Nyla Perica Pain in right toe(s) M79.674 ; Onychomycosis B35.1 and Pain in left toe(s) M79.675 Assessments Encounter Date Diagnosis (ICD Code) Assessment Notes Treatment Notes Treatment Clinical Notes Section Notes 04/09/2025 Pain in right toe(s) (ICD-10 - M79.674) 04/09/2025 Onychomycosis (ICD-10 - B35.1) 04/09/2025 Pain in left toe(s) (ICD-10 - M79.675) Plan Of Treatment Pending Test Test Name Order Date MRI : Foot, left 06/28/2020 X ray : Foot, left 3V 05/25/2020 X ray : Foot, right 3V 07/19/2017 X ray : Foot, right 3V 06/19/2019 [id number] NAIL, 6 OR MORE 03/07/2018 [id number] Plate 06/25/2011 95230- Debride <25 sq cm 07/11/2011 [id number] TENDON SHEATH/LIGAMENT 1 08/19/2018 [id number] TENDON SHEATH/LIGAMENT 0 03/07/2018 60733,[id number] TENDON SHEATH/LIGAMENT 1 [id number] TENDON SHEATH/LIGAMENT 0 01/06/2020 [id number] TENDON SHEATH/LIGAMENT 0 04/12/2020 27127- Unna Boot 06/19/2019 X ray : Ankle, right 3V 06/19/2019 Next Appt Details Provider Name:Nyla Cory wang, 06/18/2025 01:30:00 PM, [address] [facility], [place], [address], Insurance Providers Payer Name Payer Address Payer Phone Subscriber Number Group Number Insured Name Patient Relationship to Insured Coverage Start Date Coverage End Date Medicare National [facility] [employer] [address] [place] [address] [id number] Brenda Wolf Self - patient is the insured 3 [employer]xton Hargill [address] BRINDA Fischer [id number] [phone] [id number] Brenda Wolf Self - patient is the insured Medical (General) History Medical History History ICD Code anxiety Arthritis back, hip, knee pain hypertension osteoporosis measles joint implants/screws asthma CAD (Cholesterol) Depression A fib Surgical History Surgery Date(Month/Year) neck surgery 1989 back surgery 1992 knee replacement 2007 carpal tunnel surgery 05/2017 spinal stenosis surgery 11/26/2017 Hospitalization History Reason Date(Month/Year) [facility]- fell,CAT scan, stiches, 06/15/19- 1 08/19/18 [facility]- Spinal sten osis Sx 11/26/2017 right foot hurting diagnosed plantar 07/17/2017
--- OUTSIDE RECORDS SUMMARY | 2025-04-27 15:15 | XMS_ITS | Encounter Summary ---
Author Organization [facility] Address [address] [place] [address] Phone Care Team Providers Care Mannequin Decorator Name Role Phone Ne Cho MD Unavailable [phone] Ling Middleton NP Primary Care Provider + Encounter Details Date Type Department Care Team (Late st Contact Info) Description 12/05/2021 Transcribe Orders [facility] P[facility] [address] [place] [address] Darrin Gómez MD, MS [address] [id number] Social History Tobacco Use Types Packs/Day Years Used Date Smoking Tobacco: Former Cigarettes 0.8 10 1 958 - 6810 Smokeless Tobacco: Never Alcohol Use Standard Drinks/Week Comments Yes 10 (1 standard drink = 0.6 oz pu re alcohol) Education Answer Date Recorded Are you interested in help w ith more adult education (for example, completing high school, GED, job training, learning the British language, technical skills, or developing parenting skills)? [...] 1. Pt will explore exercise classes at [facility] once cleared by spinal surgeon. 2. Pt will engage in Weight Watchers classes. documented as of this encounter Visit Diagnoses Not on filedocumented in this encounter Additional Health Concerns Assessment Noted Time PHQ-2 Depression Total Score: 0 03/12/20 18 1:28 PM EDT documented as of this encounter Care Teams Mannequin Decorator Relationship Specialty Start Date End Date Ling Middleton NP [address] [place] [address] PCP - General Family Medicine 07/05/21 Ne Cho MD [address] [place] [address], [address] BRINDA Izquierdo [address] [email or web address] Insurance Assigned Provider 11/04/19 08/04/22 documented as of this encounter Additional Source Comments The information contained in this document represents components of the legal health record. It is not the complete legal health record.[facility]
--- OUTSIDE RECORDS SUMMARY | 2025-04-27 15:15 | XMS_ITS | Encounter Summary ---
Author Organization [facility] Address [address] [facility] [address] [place] [address] Phone Care Team Providers Care Flanging Operator Name Role Phone Ne Cho MD Unavailable [phone] Unknown, Unknown Primary Care Provider Ling Blanc NP Primary Care Provider + Reason for Referral * Consultation (Elective) - Closed Specialty Diagnoses / Procedures Referred By Contac t Referred To Contact Pulmonary Disease Diagnoses Wheezing Ling Middleton NP Phone: tel: fax: [address] [address] Phone: tel: Referral ID Status Reason Start Date Expiration Date Visits Re quested Visits Authorized [id number] Closed 06/26/2021 06/26/2022 1 1 Encounter Details Date Type Department Care Team (Late st Contact Info) Description 06/26/2021 Transcribe Orders [facility] Pulmonary, Allergy and Critical Care Medicine [address] [place], [place] [id number] Ling Middleton NP [address] [place] [address] [id number] Wheezing (Primary Dx) Social History Tobacco Use Types Packs/Day Years Used Date Smoking Tobacco: Former Cigarettes 1 8 - 1966 Smokeless Tobacco: Never Education Answer Date Recorded Are you interested in help w ith more adult education (for example, completing high school, GED, job training, learning the Indian language, technical skills, or developing parenting skills)? [...] Associated Diagnoses Order Schedule Ambulatory referral to [facility] Pulmonology Outpatient Referral Routine Wheezing Ordered: [...] 1. Pt will explore exercise classes at [facility] once cleared by spinal surgeon. 2. Pt will engage in Weight Watchers classes. documented as of this encounter Visit Diagnoses Diagnosis Wheezing- Primary documented in this encounter Additional Health Concerns Assessment Noted Time PHQ-2 Depression Total Score: 0 03/12/20 18 1:28 PM EDT documented as of this encounter Care Teams Flanging Operator Relationship Specialty Start Date End Date Unknown, Unknown, MD PCP - General 06/28/21 07/04/21 Ling Middleton NP [address] [place] [address] PCP - General Family Medicine 07/05/21 Ne Cho MD [address] [place] [address], [address] [place] [address] [email or web address] Insurance Assigned Provider 11/04/19 08/04/22 documented as of this encounter Additional Source Comments The information contained in this document represents components of the legal health record. It is not the complete legal health record.[facility]
--- OUTSIDE RECORDS SUMMARY | 2025-04-27 15:16 | XMS_ITS | Clinical Summary ---
Author Organization [facility] Address [address] [facility] [address] [place] [address] Phone Care Team Providers Care Pipe Coverer Helper Name Role Phone Ling Middleton NP Primary [...] spur. I referred her to a new formulation scientist today and she will call for an appointment. She will call if things get worse or if they change. She understands and agrees. Lumbar post-laminectomy syndrome 05/26/2020 Enthesopathy of hip region 05/26/2020 Disorder of bursae of shoulder region 05/26/2020 Chronic pain of right ankle 12/03/2019 Assessment & Plan (01/05/2020 1:01 PM EDT): I recommend she call [facility] and request a second opinion from [...] surgery w Dr Kc 11/26/17 Dr. Kc, [place] Assessment & Plan (05/06/2018 8:32 PM EDT): Patient with complex chronic pain status post multiple spinal surgeries. She has been using fentanyl patch 25 mcg, this is been tapered down from 37 mcg. This last month she excessively used oxycodone due to pain flare. I think she would be better served in a comprehensive pain management clinic. She was referred to [facility]. For the meantime we will [...] from physical therapy. She is following with product technician Assessment & Plan (12/01/2018 2:52 PM EDT): [...] Former Cigarettes 0.8 10 1 958 - 3127 Smokeless Tobacco: Never Alcohol Use Standard Drinks/Week [...] 1. Pt will explore exercise classes at [facility] once cleared by spinal surgeon. 2. [...] EDT) SODIUM 140 133 - 146 mmol/L [facility] POTASSIUM 4.2 3.3 - 5.1 mmol/L [facility] CHLORIDE 105 96 - 108 mmol/L [facility] CO2 23 21 - 35 mmol/L [facility] BUN 27(H) 6 - 19 mg/dL [facility] CREATININE 0.80 0.5 - 1.5 mg/dL [facility] GLUCOSE 86 70 - 99 mg/dL [facility] ALBUMIN 4.2 3.9 - 4.8 g/dL [facility] TOTAL PROTEIN 7.2 6.5 - 8.0 g/dL [facility] CALCIUM 9.6 8.4 - 10.3 mg/dL [facility] ALKALINE PHOSPHATASE 102 39 - 117 U/L [facility] TOTAL BILIRUBIN 0.3 0.0 - 1.2 mg/dL [facility] AST 24 0 - 37 U/L [facility] ALT 21 0 - 40 U/L [facility] GLOBULIN 3.0 1 - 4.8 g/dL [facility] EGFR 68 >59 mL/min/1.7 3m2 [facility] Comment:Estimated glomerular filtration rate calculated using the CKD-EPI equation. ANION GAP 16 10 - 20 mmol/L [facility] Blood 12/05/2020 2:15 PM EDT 12/05/2020 2:16 PM EDT us Chely Samara Zurba CAB DRIVER LAB BLOOD ORDERABLES Final Re sult [facility] [address] [place] [address] * OUTSIDE BONE DENSITY SCREENING (11/19/2013) BONE DENSITY SCREENING - EXTERNAL osteopenia us Historical Provider MD HEALTH MAINTENANCE Final Result from Last 3 Months or Most Recently Relevant to Health Maintenance Insurance [address] [place] [address] MEDICARE PART A & B [facility] MED[facility] ENHANCE SUPPLEMENT MEDICARE PART A & B [facility] MEDICARE ENHANCE SUPPLEMENT MEDICARE PART A & B [facility] MEDICARE ENHANCE SUPPLEMENT MEDICARE PART A & B MEDICARE ENHANCE SUPPLEMENT MEDICARE PART A & B [facility] MEDICARE ENHANCE SUPPLEMENT MEDICARE PART A & B [facility] MEDICARE ENHANCE SUPPLEMENT MEDICARE PART A & B [facility] MEDICARE ENHANCE SUPPLEMENT MEDICARE PART A & B [facility] MEDICARE ENHANCE SUPPLEMENT MEDICARE PART A & B [facility] MEDICARE ENHANCE SUPPLEMENT Advance Directives For more information, please contact: [phone] (9AM - 5PM [facility], Saturday-Saturday) Documents on File Type Date Recorded Patient Dental Treatment Coordinator Expl anation Healthcare Proxy 03/28/2018 1:38 PM Care Teams Pipe Coverer Helper Relationship Specialty Start Date End Date Ling Middleton NP [address] [place] [address] PCP - General Family Medicine 07/05/21 Additional Source Comments The information contained in this document represents components of the legal health record. It is not the complete legal health record.[facility]
== END 2025-04-27 15:36 | disposition home or self-care (01) ==
LOC: HO.ENCR 13:53
PROVIDERS: PCP Physician Assistant; Visit Provider Internal Medicine Endocrinology, Diabetes & Metabolism
DX: M81.0 Age-related osteoporosis without current pathological fracture (principal)
CPT/HCPCS: 99213

== ENCOUNTER → 2025-04-27 13:52 | Outpatient (BNVA) | payer MEDICARE, OTHER, SELFPAY | PROVIDERS: PCP Physician Assistant; Visit Provider Internal Medicine Endocrinology, Diabetes & Metabolism | DX: M81.0 Age-related osteoporosis without current pathological fracture (principal); Z79.620 Long term (current) use of immunosuppressive biologic | CPT/HCPCS: 96372; 99212; J3111 ==

== ENCOUNTER 2025-05-12 14:11 | Outpatient (AMB) | payer MEDICARE, OTHER, SELFPAY ==
--- OUTSIDE RECORDS SUMMARY | 2017-02-20 06:52 | XMS_ITS | Continuity of Care Document ---
Author Organization [facility] cine Address [address] [facility] 2nd [place] [address] Phone Care Team Providers Care Swim Coach Name Role Phone Rodney Campos MD Unavailable [...] route every day at night - Active trazodone 50 mg tablet take [...] route every day 100 MG - Active amlodipine 10 mg tablet take 1 tablet by oral route every day 10 MG - Active Procedures Procedure Date Inj_Facet_Lumbar [...] Reason(s) For Visit Diagnoses Date Provider [facility], [address] [place] [address], [place], [place], [id number], tel:[phone] [facility] No Information Beth Stevens. [address] [place] [address], [address] [place] [address], [place], [place], [id number], [place]. tel:[phone] [facility], [address] [place], [place] [address], [place], [place], [id number], tel:[phone] [facility] Spondyls w/o myelopathy or radiculopathy, lumbosacr region Beth Rodney. [address] [place] [address], [place], [place], [id number], [place]. tel:[phone] 8064 [facility], [address] [place] [address], [place], [place], [id number], [place] tel:[phone] [facility] No Information [facility]. [address] [place] [address], [id number], [place]. tel:[phone] [facility], [address] [place] [address], [place], [place], [address], [place] tel:[phone] [facility] Spondyls w/o myelopathy or radiculopathy, lumbosacr region Beth Rodney. [address] [place] [address], [place], [place], [address], [place]. tel:[phone] 5204 [facility], [address] [place] [address], [place], [place], [id number], [place] tel:[phone] [facility] No Information [facility]. [address] [place] [address], [id number], [place]. tel:[phone] MD_Follow Up Level 4 [facility], [address] [place] [address], [place], [place], [id number], [place] tel:[phone] [facility] Spondylosis without myelopathy or radiculopathy, lumbosacral regionOther spondylosis with radiculopathy, lumbar region Yoli Justice. [address] [place] [address], [address], [place]. tel:[phone] 1805 [facility], [address] [place] [address], [place], [place], [address], [place] tel:[phone] [facility] Spondylosis w/o myelopathy or radiculopathy, thoracic region Sacramento Rodney. [address] [place] [address], [place], [place], [id number], [place]. tel:[phone] 3201 [facility], [address] [place] [address], [place], [place], [address], [place] tel:[phone] [facility] No Information [facility]. [address] [place] [address], [id number], [place]. tel:[phone] 5272 [facility], [address] [place] [address], [place], [place], [address], [place] tel:[phone] [facility] Spondylosis w/o myelopathy or radiculopathy, cervical region Blanca Obregon. [address] [place] [address], [place], [place], [id number], [place]. tel:[phone] 8756 [facility], [address] [place] [address], [place], [place], [id number], [place] tel:[phone] [facility] No Information [facility]. [address] [place] [address], [id number], [place]. tel:[phone] 2260 [facility], [address] [place] [address], [place], [place], [address], [place] tel:[phone] [facility] Spondylosis w/o myelopathy or radiculopathy, cervical region Beth Stevens. [address] [place] [address], [place], [place], [address], [place]. tel:[phone] 5044 [facility], [address] [place] [address], [place], [place], [address], [place] tel:[phone] [facility] No Information [facility]. [address] [place] [address], [id number], [place]. tel:[phone] 8796 [facility], [address] [place] [address], [place], [place], [address], [place] tel:[phone] [facility] Cervical disc disorder w radiculopathy, unsp cervical region Blanca Obregon. [address] [place] [address], [place], [place], [address], [place]. tel:[phone] 1937 [facility], [address] [place] [address], [place], [place], [address], [place] tel:[phone] [facility] No Information [facility]. [address] [place] [address], [id number], [place]. tel:[phone] MD_Follow Up Level 4 [facility], [address] [place], [place] [address], [place], [place], [address], [place] tel:[phone] [facility] Postlaminectomy syndrome, not elsewhere classified Yoli Reshma. [address] [place] [address], [address], [place]. tel:[phone] MD_Follow Up Level 4 [facility], [address] [place], [place] [address], [place], [place], [address], [place] tel:[phone] [facility] Spondyls w/o myelopathy or radiculopathy, lumbosacr region Otilia Marin. [address] [place] [address], [id number], [place]. tel:[phone] 0982 [facility], [address] [place] [address], [place], [place], [address], [place] tel:[phone] [facility] Cervical disc disorder w radiculopathy, unsp cervical region Beth Stevens. [address] [place] [address], [facility] Floor, [place], [place], [id number], [place]. tel:[phone] 1716 [facility], [address] [place], [place] [address], [place], [place], [address], [place] tel:[phone] [facility] No Information [facility]. [address] [place] [address], [id number], [place]. tel:[phone] MD_Follow Up Level 4 [facility], [address] [place], [place] [address], [place], [place], [address], [place] tel:[phone] [facility] Spondyls w/o myelopathy or radiculopathy, lumbosacr region Broderick Nye. [address] [place] [address], [id number], [place]. tel:[phone] 6138 [facility], [address] [place], [place] [address], [place], [place], [address], [place] tel:[phone] [facility] Cervical disc disorder w radiculopathy, unsp cervical region Beth Stevens. [address] [place] [address], [place], [place], [address], [place]. tel:[phone] 1829 [facility], [address] [place] [address], [place], [place], [address], [place] tel:[phone] [facility] No Information [facility]. [address] [place] [address], [id number], [place]. tel:[phone] MD_Follow Up Level 4 [facility], [address] [place] [address], [place], [place], [id number], [place] tel:[phone] [facility] No Information Yoli Justice. [address] [place] [address], [address], [place]. tel:[phone] 2711 [facility], [address] [place] [address], [place], [place], [address]33, [place] tel:[phone] [facility] No Information Beth Stevens. [address] [place] [address], [place], [place], [address], [place]. tel:[phone] 5721 [facility], [address] [place] [address], [place], [place], [address], [place] tel:[phone] [facility] No Information [facility]. [address] [place] [address], [id number], [place]. tel:[phone] MD_Follow Up Level 4 [facility], [address] [place] [address], [place], [place], [address]44[address]679, [place] tel:[phone] [facility] Spondylosis without myelopathy or radiculopathy, lumbosacral region Beth Stevens. [address] [place] [address], [place], [place], [address], [place]. tel:[phone] 8433 [facility], [address] [place] [address], [place], [place], [address], [place] tel:[phone] [facility] Postlaminectomy syndrome, not elsewhere classified Blanca Obregon. [address] [place] [address], [place], [place], [address]66[address], [place]. tel:[phone] 3274 [facility], [address] [place] [address], [place], [place], [address], [place] tel:[phone] [facility] No Information [facility]. [address] [place] [address], [id number], [place]. tel:[phone] MD_Follow Up Level 4 [facility], [address] [place] [address], [place], [place], 826[address]993, [place] tel:[phone] [facility] Other spondylosis with radiculopathy, lumbar region Otilia Marin. [address] [place] [address], [id number], [place]. tel:[phone] MD_Follow Up Level 4 [facility], [address] [place] [address], [place], [place], [address]78[address], [place] tel:[phone] [facility] Other spondylosis with radiculopathy, lumbar region Beléna Tania. [address] [place] [address], [id number], [place]. tel:[phone] 1238 [facility], [address] [place] [address], [place], [place], 1437[address]487, [place] tel:[phone] [facility] No Information Polaccacristhian LeesVivian. [address] [place] [address], [address], [place]. tel:[phone] 1943 [facility], [address] [place] [address], [place], [place], [address], [place] tel:[phone] [facility] No Information [facility]. [address] [place] [address], [id number], [place]. tel:[phone] 2661 [facility], [address] [place] [address], [place], [place], [address]6783210, [place] tel:[phone] [facility] No Information Beth Stevens. [address] [place] [address], [place], [place], [id number], [place]. tel:[phone] 8399 [facility], [address] [place] [address], [place], [place], [address]3926, [place] tel:[phone] [facility] No Information Otilia Marin. [address] [place] [address], [id number], [place]. tel:[phone] 4301 [facility], [address] [place] [address], [place], [place], [id number], tel:[phone] [facility] No Information Arsalanrichardtammy Praveen. [address] [place] [address], [address] [place] [address], [place], [place], [address]28, [place]. tel:[phone] MD_Follow Up Level 5 [facility], [address] [place] [address], [place], [place], [address]37[address]37, [place] tel:[phone] [facility] No Information Otilia Marin. [address] [place] [address], [id number], . tel:[phone] Behavioral (Psych) 60 mins [facility], [address] [place] [address], [place], [place], [address]81, [place] tel:[phone] [facility] Spondylosis without myelopathy or radiculopathy, lumbosacral region Hermelinda Peña. [address] [place] [address], [id number], [place]. tel:[phone] 0801 [facility], [address] [place] [address], [place], [place], [address]3606, [place] tel:[phone] [facility] No Information [facility]. [address] [place] [address], [id number], [place]. tel:[phone] 0257 [facility], [address] [place] [address], [place], [place], 067163999, [place] tel:[phone] [facility] No Information Beth Stevens. [address] [place] [address], [address] [place] [address], [place], [place], 242097083, [place]. tel:[phone] 1804 [facility], [address] [place] [address], [place], [place], [id number], [place] tel:[phone] [facility] No Information Sacramento Rodney. [address] [place] [address], [place], [place], [address]247, [place]. tel:[phone] 2603 [facility], [address] [place] [address], [place], [place], 933651924, [place] tel:[phone] [facility] No Information [facility]. [address] [place] [address], [id number], [place]. tel:[phone] 2126 [facility], [address] [place] [address], [place], [place], 866[address]906, [place] tel:[phone] [facility] No Information Sacramento Rodney. [address] [place] [address], [place], [place], 830650874, [place]. tel:[phone] MD_Follow Up Level 4 [facility], [address] [place] [address], [place], [place], 8955[address]355, [place] tel:[phone] [facility] Spondylosis without myelopathy or radiculopathy, lumbosacral region Sacramento Rodney. [address] [place] [address], [place], [place], 730315921, [place]. tel:[phone] 9010 [facility], [address] [place] [address], [place], [place], 764641571, [place] tel:[phone] [facility] No Information Sacramento Rodney. [address] [place] [address], [place], [place], 560[address]695, [place]. tel:[phone] 8721 [facility], [address] [place] [address], [place], [place], 836735463, [place] tel:[phone] [facility] No Information [facility]. [address] [place] [address], [id number], [place]. tel:[phone] 1806 [facility], [address] [place] [address], [place], [place], 845657858, [place] tel:[phone] [facility] No Information Sacramento Rodney. [address] [place] [address], [id number], [place]. tel:[phone] [facility], [address] [place], [place] [address], [place], [place], [address]6601, [place] tel:[phone] [facility] No Information [facility]. [address] [place] [address], [id number], [place]. tel:[phone] 7005 [facility], [address] [place] [address], [place], [place], [address]3626349, [place] tel:[phone] [facility] No Information Beth Stevens. [address] [place] [address], [address] [place] [address], [place], [place], 135[address]298, [place]. tel:[phone] 5603 [facility], [address] [place] [address], [place], [place], 236[address]295, [place] tel:[phone] [facility] No Information [facility]. [address] [place] [address], [id number], [place]. tel:[phone] MD_Follow Up Level 3 [facility], [address] [place] [address], [place], [place], 394181383, [place] tel:[phone] [facility] Lumbosacral spondylosis without myelopathy Beth Stevens. [address] [place] [address], [place], [place], 831649452, [place]. tel:[phone] MD_Follow Up Level 3 [facility], [address] [place] [address], [place], [place], 657800822, [place] tel:[phone] [facility] Knee Pain (chief complaint) Enthesopathy of knee, unspecified Roque Garcia. [address] [place] [address], [address], [place]. tel:[phone] 0148 [facility], [address] [place] [address], [place], [place], 520979385, [place] tel:[phone] [facility] No Information Otoniel Wang. [address] [place] [address], [address] [place] [address], [place], [place], 149588510, [place]. tel:[phone] [facility], [address] [place] [address], [place], [place], 134198786, [place] tel:[phone] [facility] No Information [facility]. [address] [place] [address], [id number], [place]. tel:[phone] MD_Follow Up Level 3 [facility], [address] [place] [address], [place], [place], 870658160, [place] tel:[phone] [facility] Opioid type dependence, continuous useLumbosacral spondylosis without myelopathyComplete rupture of rotator cuff Bethsamson Stevens. [address] [place] [address], [place], [place], [address]368[address]014, [place]. tel:[phone] 2201 [facility], [address] [place] [address], [place], [place], 641724395, [place] tel:[phone] [facility] No Information Beth Stevens. [address] [place] [address], [place], [place], 012961742, [place]. tel:[phone] [facility], [address] [place] [address], [place], [place], [address]80[address]386, [place] tel:[phone] [facility] No Information [facility]. [address] [place] [address], [id number], [place]. tel:[phone] MD_Follow Up Level 4 [facility], [address] [place] [address], [place], [place], 770280615, [place] tel:[phone] [facility] back pain (chief complaint)s houlder pain (chief complaint) No Information Del Avalos. [address] [place] [address], [id number], [place]. tel:[phone] MD_Follow Up Level 4 [facility], [address] [place] [address], [place], [place], [address]248, [place] tel:[phone] [facility] shoulder pain (chief complaint) Osteoarthrosis, localized, primary, involving shoulder regionOther specified disorders of bursae and tendons in shoulder regionMyalgia and myositis, unspecifiedComplete rupture of rotator cuff Babatunde Jauregui. [address] [place] [address], [address], [place]. tel:[phone] NP_Office Visit Level 4 [facility], [address] [place] [address], [place], [place], [address]1006413, [place] tel:[phone] [facility] shoulder pain (chief complaint) Lumbosacral spondylosis without myelopathyOther specified disorders of bursae and tendons in shoulder regionBicipital tenosynovitisMyalgia and myositis, unspecified Babatunde Jauregui. [address] [place], [address], . tel:[phone] MD_Follow Up Level 4 [facility], [address] [place] [address], [place], [place], 627388348, [place] tel:[phone] [facility] back pain (chief complaint)s houlder pain (chief complaint) No Information Mathis Angélica Sheri Avalos. [address] [place], [place], [address], [place]. tel:[phone] 0169 [facility], [address] [place] [address], [place], [place], 356472365, [place] tel:[phone] [facility] No Information Beth Stevens. [address] [place] [address], [place], [place], 043584733, [place]. tel:[phone] 5056 [facility], [address] [place] [address], [place], [place], 0978[address]118, [place] tel:[phone] [facility] No Information [facility]. [address] [place] [address], [id number], [place]. tel:[phone] 5109 [facility], [address] [place] [address], [place], [place], 850048246, [place] tel:[phone] [facility] No Information Christianne Grimes. [address], [address], [place], [place], [address], [place]. tel:[phone] [facility], [address] [place] [address], [place], [place], 374440256, [place] tel:[phone] [facility] No Information Beth Stevens. [address] [place] [address], [address] [place] [address], [place], [place], 2780[address]119, [place]. tel:[phone] 7038 [facility], [address] [place], [place] [address], [place], [place], [address]1900, [place] tel:[phone] [facility] No Information [facility]. [address] [place] [address], [id number], . tel:[phone] MD_Follow Up Level 5 [facility], [address] [place], [place] [address], [place], [place], 885310259, [place] tel:[phone] [facility] back pain (chief complaint) No Information Yoli Reshma. [address] [place] [address], [address], . tel:[phone] 8384 [facility], [address] [place] [address], [place], [place], 070731881, tel:[phone] [facility] back pain (chief complaint) Adjustment disorder with mixed anxiety and depressed mood Shiva Samano. [address] [place] [address], [address], [place]. tel:[phone] 7004 [facility], [address] [place], [place] [address], [place], [place], 278089581, [place] tel:[phone] [facility] No Information Beth Stevens. [address] [place] [address], [facility], [place], [place], [id number], [place]. tel:[phone] 3056 [facility], [address] [place], [place] [address], [place], [place], 560776830, [place] tel:[phone] [facility] No Information [facility]. [address] [place] [address], [id number], [place]. tel:[phone] NP_Office Visit Level 5 [facility], [address] [place], [place] [address], [place], [place], 928918839, [place] tel:[phone] [facility] arm pain (chief complaint) Hypertension, UnspecifiedOpioid type dependence, continuous useTherapeutic Drug MonitoringSciatica Due To Displacement Of Lumbar DiscPostlaminectomy syndrome of thoracic regionLumbosacral spondylosis without myelopathySpinal Stenosis, Lumbar Region, With Neurogenic Claudication Robert Rodríguez. [address] [place] [address], [address] Floor, [place], [place], 1635[address]149, [place]. tel:[phone] Family History Family Member Type Diagnosis Age [...] Covered green party ID Authoriza tion(s) Medicare [id number] [place] MCR Supplement Plan [id number] Social History Type Description Quantity Date Captured [...]
--- NOTE | 2025-05-12 14:16 | MHC.PC.OV ---
Vital Signs 05/12/25 14:23 Height 4 ft 10.82 in Weight 180 lb BMI 36.6 BP 154/74 H Blood Pressure Location Rt brachial Position Sitting Respiration 14 Pulse 60 Pulse Source Pulse Oximeter Pulse Oximetry (%) 93 Oxygen Delivery Method Room Air Intake Visit Reasons: Discuss seeing sales and service specialist -Reschedule Intake Note: Pain in right knee and SI joint. Already has appt with Pulmonolgist 06/16/[address] Aguilar. Wants to know whether to take amlodpine at night or in the morning. Rx bottle says to take at night, but pt has them in am pill organizer. Computer Assistant Required: No Allergies bee pollen Allergy (Unknown, Verified 05/12/25 14:18) Unknown house dust mite Allergy (Unknown, Verified 05/12/25 14:18) Unknown adhesive tape Adverse Reaction (Intermediate, Verified 05/12/25 14:18) Rash Medication List - Last Reconciled 05/12/25 by Allison Ham PA-C acetaminophen 1,000 mg (2 x 500 mg) PO Q6H 10 days albuterol sulfate 90 mcg/actuation 2 puffs PO Q6H PRN amlodipine 5 mg PO .pm atorvastatin (Lipitor) 10 mg PO BEDTIME bacitracin 1 appl topical Q8H PRN cholecalciferol (vitamin D3) 50 mcg PO DAILY fluticasone furoate-vilanterol 200-25 mcg/dose (Breo Ellipta) 1 ea inhalation DAILY fluticasone propionate 50 mcg/actuation 1 spray intranasal BID gabapentin 300 mg PO BID PRN hydrocortisone-pramoxine 2.5-1 % 1 appl DC BID PRN hydroxyzine HCl 25 mg PO BEDTIME ipratropium bromide 2 sprays intranasal Q12H losartan 100 mg PO DAILY metoprolol succinate ER 100 mg PO DAILY nystatin 1 appl topical BID PRN oxycodone 5 mg PO Q8H PRN 28 days oxycodone myristate CR-ER (Xtampza ER) 9 mg PO Q12H PRN pantoprazole 40 mg PO DAILY@0630 rivaroxaban (Xarelto) 20 mg PO BEDTIME romosozumab-aqqg (Evenity) 210 mg subcut QMONTH sertraline 100 mg PO DAILY vibegron (Gemtesa) 75 mg PO DAILY walker A rolling walker with seat use daily As directed Tobacco use date assessed: 03/10/25 Dental Screening Dental Screen Date: 03/10/25 HPI Discuss seeing sales and service specialist -Reschedule HPI Details Pt is an 89 y/o female with past medical history significant for hypertension, COPD -no home oxygen, AFib on Xarelto and chronic back pain on oxycodone presenting today for blood pressure follow up. Eyes: following with eye and lasik for glaucoma. CV: Blood pressure today in the office is 154/74. She says at home blood pressures are normal. She has a list of the readings and mostly less than 130/70. She is currently on metoprolol 100 mg daily (recently switch from atenolol), losartan 100 mg daily and amlodipine 5 mg daily. She remains on Xarelto and is compliant with this. No falls since the hospital. Pulm: Referred for her COPD recently and booked 06/06/25. Psych: She tells me today that the trazodone does not appear to be that effective for getting her to sleep and keeping her asleep. She states it feels like she takes a bunch and naps at night. She does not feel physically tired either and has been less physically active due to her chronic back pain. She used to go to the gym it was swimming a lot. She does feel that the sertraline is helpful for her overall anxiety and depression. No SI/HI. Nephro: Recently had labs which showed a decreased GFR. She was poorly hydrated. Endo: following with endo for osteoporosis. Msk: Reports right knee pain and had an injection from [facility]. The injection was ineffective. She started taking gabapentin and that seems to helpful with the oxycodone. pain is currently well managed. [facility] Medical History Paroxysmal A-fib Chronic pain syndrome Left ankle swelling Generalized anxiety disorder Insomnia Major depression, recurrent, chronic Arthritis High blood cholesterol COPD (chronic obstructive pulmonary disease) Urge incontinence Joint pain Chronic back pain HTN (hypertension) Bleeding hemorrhoid Back pain with history of spinal surgery Surgical History History of back surgery History of surgery Family History Father Thrombosis Mother Diabetes Heart rate problem Social History Household Members: None Housing: Assisted Living Facility Do you presently have visiting nurse or other home services: No Alcohol intake: current Alcohol intake frequency: holidays/special occasions only Alcohol type: wine Patient Tobacco Use Status: Former Tobacco user Tobacco use type: Cigarette Cigarettes Per Day: 15 Years Smoked: 10 e-Cigarette/Vaping Use: Never Used Second Hand Smoke Exposure: No service: No Current occupational status: retired Cognitive needs: No Hearing needs: Yes (hearing aids) Vision needs: No Questionnaire PHQ-9 Over the last 2 weeks, how often have you been bothered by any of the following problems? 1. Little interest or pleasure in doing things: several days 2. Feeling down, depressed, or hopeless: several days Source: Developed by Drs. Rommel Olivares, Al Ordoñez and colleagues, with an educational ken from [employer]. Thrive Questionnaire Date Thrive assessed: 07/29/24 I am a: Patient What is your living situation today?: I have a steady place to live THRIVE Score: 0 RAYNE-7 AMB Questionnaire RAYNE-7 Date RAYNE - 7 assessed: 01/29/24 Source: Developed by Drs. Rommel Olivares, Kaylee Fabian, Al Ny and colleagues, with an educational ken from [employer]. Physical exam (Primary Care) Vital Signs: Last Vital Signs Pulse 60 05/12/25 14:23 Resp 14 05/12/25 14:23 BP 154/74 H 05/12/25 14:23 Pulse Ox 93 05/12/25 14:23 Oxygen Delivery Method Room Air 05/12/25 14:23 BMI result Body Mass Index 36.6 Tobacco/Smoking Status: Tobacco use Status Tobacco use date assessed 03/10/25 05/12/25 14:21 Patient Tobacco Use Status Former Tobacco user 05/12/25 14:21 Tobacco use type Cigarette 05/12/25 14:21 e-Cigarette/Vaping Use Never Used 05/12/25 14:21 Thrive Assessment: Date of Thrive Assessment Date Thrive assessed 07/29/24 05/12/25 14:21 Const Orientation/consciousness: patient oriented x3 HENMT Ears: hearing grossly normal bilaterally Neck Thyroid: Thyroid normal Lymphatic: no lymphadenopathy noted Resp Auscultation: clear to auscultation bilaterally Cardio Rate: regular rate Rhythm: regular rhythm Heart sounds: S1 normal heart sound present and S2 normal heart sound present GI Inspection: Yes normal to inspection Palpation (GI): Soft to palpation and Other GI palpation findings present (nontender, no cva tenderness) Auscultation: normoactive bowel sounds Rectal Exam - Female: deferred Skin General skin exam: no rashes or lesions noted Neuro General: patient oriented x3, gait normal and no focal motor deficits Coding Level of Care Code Est Pt Level 4 (04138) Complex EM visit Add On G2211 Diagnoses Primary hypertension I10 Hypertension type: primary hypertension Postlaminectomy syndrome M96.1 High blood cholesterol E78.00 Assessment & Plan Assessment & Plan (1) HTN (hypertension): Code(s): I10 - Essential (primary) hypertension Category: Medical Qualifiers: Hypertension type: primary hypertension Qualified Code(s): I10 - Essential (primary) hypertension Plan: WNL. Continue current regimen (2) Postlaminectomy syndrome: Code(s): M96.1 - Postlaminectomy syndrome, not elsewhere classified Category: Medical Plan: Continue current pain regimen (3) High blood cholesterol: Code(s): E78.00 - Pure hypercholesterolemia, unspecified Category: Medical Plan: Doing well on atorvastatin. We will monitor labs. Orders: Orders Complete Blood Count Auto Diff 05/12/25 E78.00 - Pure hypercholesterolemia, unspecified, I10 - Essential (primary) hypertension, M96.1 - Postlaminectomy syndrome, not elsewhere classified TSH reflex Free T4 05/12/25 E78.00 - Pure hypercholesterolemia, unspecified, I10 - Essential (primary) hypertension, M96.1 - Postlaminectomy syndrome, not elsewhere classified UA CC w/rflx Micro + Cult 05/12/25 E78.00 - Pure hypercholesterolemia, unspecified, I10 - Essential (primary) hypertension, M96.1 - Postlaminectomy syndrome, not elsewhere classified, R30.0 - Dysuria Comprehensive Met. Panel 05/12/25 E78.00 - Pure hypercholesterolemia, unspecified, I10 - Essential (primary) hypertension, M96.1 - Postlaminectomy syndrome, not elsewhere classified Medications: Changed From amlodipine 5 mg PO DAILY 90 tabs 3RF To amlodipine 5 mg PO .pm
[2025-05-12 14:23] VITALS: BP 154/74; PULSE 60; RESP 14; O2SAT 93; BMI 36.6
--- OUTSIDE RECORDS SUMMARY | 2025-05-12 17:54 | XMS_ITS | Patient Health Record ---
Author Organization [facility] Address [address] [place] [address] Care Team Providers Care Mortuary Technician Name Role Phone Ling Middleton DNP Primary Care Provider Elbert Jose Jr Unavailable [phone] Allergies Allergen (clinical drug ingredient) Drug/Non Drug Allergy documented on EMR Reaction Allergy Type Onset Date Status chlorpheniramine Allergy Unknown Drug Allergy Active Reason For Referral No Information Medications Medication SIG (Take, Route, Frequency, Duration) Notes Start Date End Date Status Pantoprazole Sodium 40 MG TAKE 1 TABLET BY MOUTH EVERY DAY; Duration: 90 days Active Losartan Potassium 100 MG 1 tablet Orall y Once a day Active Sertraline HCl 50 MG 1 tablet Orally Onc e a day; Duration: 30 day(s) Active Atorvastatin Calcium 10 MG 1 tablet Oral ly Once a day Active Breo Ellipta Active Albuterol Sulfate HFA Active amLODIPine Besylate 10 MG 1 tablet Orall y Once a day Active Tylenol 8 Hour Arthritis Pain Active Claritin 10 MG 1 tablet Orally Once a day; Duration: 30 day(s) Active Ipratropium [place] 0.06 % 2 sprays in e ach nostril Nasally Three times a day; Duration: 4 day(s) Active Amoxicillin 500 MG 1 capsule Orally NEEDED FOR DENTIST Active Calcium 500 MG 1 tablet Orally Once a day Active Tramadol & Dietary Manage Prod Active Vitamin D3 Ultra Potency 89158 UNIT 1 tablet Orally as directed Active [...] Problem Status W/U Status Risk Notes Problem Rectal bleeding (07906255) Rectal bleeding (K62.5) Active confirmed Problem Gastro-esophagea l reflux disease without esophagitis (909632520) Gastro-esophage al reflux disease without esophagitis (K21.9) Active confirmed Problem Cough (75381315) Cough (R05) Active confirmed Problem Urinary incontinence (505362416) Urinary incontinence, unspecified type (R32) Active confirmed Plan Of Treatment Pending Test Test Name Order Date XR GI SERIES 07/14/2015 Insurance Providers Payer Name Payer Address Payer Phone Subscriber Number Group Number Insured Name Patient Relationship to Insured Coverage Start Date Coverage End Date MEDICARE OF [place] [address] [place] [phone] [id number] KAY COLLINS Self - patient is the insured [employer] [address] BRINDA THAKKAR [phone] [id number] KAY COLLINS Self - patient is the insured Medical (General) History Medical History History ICD Code EGD/colonoscopy 01/03/2006. No evidence of Morse's esophagus. Hyperplastic colon polyp. Seasonal allergic rhinitis hypertension hypercholesterolemia scoliosis arthritis depression Surgical History Surgery Date(Month/Year) Vocal cord polyp 2006 Multiple back and neck surgeries rotator cuff surgery both knee replacement left
--- OUTSIDE RECORDS SUMMARY | 2025-05-12 17:55 | XMS_ITS | Encounter Summary ---
Author Organization [facility] Address [address] [facility] [address] [facility] [address] [place] [address] Phone Care Team Providers Care Equipment Maintenance Supervisor Name Role Phone Ne Cho MD Unavailable [phone] Unknown, Unknown Primary Care Provider Ling Blanc NP Primary Care Provider + Reason for Referral * Consultation (Elective) - Closed Specialty Diagnoses / Procedures Referred By Contac t Referred To Contact Pulmonary Disease Diagnoses Wheezing Ling Middleton NP Phone: tel: fax: [address] [address] Phone: tel: Referral ID Status Reason Start Date Expiration Date Visits Re quested Visits Authorized [id number] Closed 06/26/2021 06/26/2022 1 1 Encounter Details Date Type Department Care Team (Late st Contact Info) Description 06/26/2021 Transcribe Orders [facility] Pulmonary, Allergy and Critical Care Medicine [address] [place], [place] [phone] Ling Middleton NP [address] [place] [address] [phone] Wheezing (Primary Dx) Social History Tobacco Use [...] Associated Diagnoses Order Schedule Ambulatory referral to [facility] Pulmonology Outpatient Referral Routine Wheezing Ordered: 06/26/2021 [...] 1. Pt will explore exercise classes at [facility] once cleared by spinal surgeon. 2. Pt will engage in Weight Watchers classes. documented as of this encounter Visit Diagnoses Diagnosis Wheezing- Primary documented in this encounter Additional Health Concerns Assessment Noted Time PHQ-2 Depression Total Score: 0 03/12/20 18 1:28 PM EDT documented as of this encounter Care Teams Equipment Maintenance Supervisor Relationship Specialty Start Date End Date Unknown, Unknown, MD PCP - General 06/28/21 07/04/21 Ling Middleton NP [address] [place] [address] PCP - General Family Medicine 07/05/21 Ne Cho MD [address] [place] [address], [address] [place] [address] [email or web address] Insurance Assigned Provider 11/04/19 08/04/22 documented as of this encounter Additional Source Comments The information contained in this document represents components of the legal health record. It is not the complete legal health record.[facility]
--- OUTSIDE RECORDS SUMMARY | 2025-05-12 17:55 | XMS_ITS | Patient Health Record ---
Author Organization [facility] Address [address] [facility] [address] [facility] [place] [address] Care Team Providers Care Carpenter Streetcar Name Role Phone Allison Ham Primary Care Provider Nyla Sharma Unavailable [phone] Allergies Allergen (clinical drug ingredient) Drug/Non Drug Allergy documented on EMR Reaction Allergy Type Onset Date Status Adhesive - Paper Tap e (uncoded) Unknown Allergy Active Grass Mix Pollens Allergen Ext Unknown Drug Allergy Active Cats Unknown Allergy Active Dust Mites Unknown Allergy Active Reason For Referral No Information Medications Medication SIG (Take, Route, Frequency, Duration) Notes Start Date End Date Status Nasal [place] Not-Taki ng Vitamin D 400 UNIT 1 [...] day; Duration: 30 day(s) 07/05/2020 Not-Taking Ipratropium [place] 0.06 % USE 1 SPRAY I N [...] primary osteoarthritis of the ankle and/or foot (430408690) 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 Vital Signs Blood pressure diastolic 80 mm Hg 04/09/2025 Height 4 ft 11 in in 04/09/2025 Blood pressure systolic 140 mm Hg 04/09/2025 Weight 175 lbs 04/09/2025 BMI 35.34 kg/m2 04/09/2025 Encounters Encounter Location Date Provider Diagnosis [facility] [place] [address] [place] [address] 04/09/2025 Nyla Perica Pain in right toe(s) [...] X ray : Foot, right 3V 06/19/2019 [id number] NAIL, 6 OR MORE 03/07/2018 [id number] Plate 06/25/2011 06418- Debride <25 sq cm 07/11/2011 52048,[id number] TENDON SHEATH/LIGAMENT 1 08/19/2018 47596,[id number] TENDON SHEATH/LIGAMENT 0 03/07/2018 83385,[id number] TENDON SHEATH/LIGAMENT 1 15094,[id number] TENDON SHEATH/LIGAMENT 0 01/06/2020 28220,[id number] TENDON SHEATH/LIGAMENT 0 04/12/2020 48246- Unna Boot 06/19/2019 X ray : Ankle, right 3V 06/19/2019 Next Appt Details Provider Name:Nyla Cory wang, 06/18/2025 01:30:00 PM, [address] [facility], [place], [address], Insurance Providers Payer Name Payer Address Payer Phone Subscriber Number Group Number Insured Name Patient Relationship to Insured Coverage Start Date Coverage End Date Medicare [facility] [employer] [address] [place] [address] [phone] [id number] Brenda Wolf Self - patient is the insured [address] BRINDA Fischer [address] [phone] [id number] Brenda Wolf Self - patient is the insured Medical (General) History Medical History History ICD Code anxiety Arthritis back, hip, knee pain hypertension osteoporosis measles joint implants/screws asthma CAD (Cholesterol) Depression A fib Surgical History Surgery Date(Month/Year) neck surgery 1989 back surgery 1992 knee replacement 2007 carpal tunnel surgery 05/2017 spinal stenosis surgery 11/26/2017 Hospitalization History Reason Date(Month/Year) [facility], st[place], 06/15/19- 1 08/19/18 [facility]- Spinal sten osis Sx 11/26/2017 right foot hurting diagnosed plantar 07/17/2017
--- OUTSIDE RECORDS SUMMARY | 2025-05-12 17:55 | XMS_ITS | Clinical Summary ---
Author Organization [facility] Address [address] [facility] [facility] [address] [place] [address] Phone Care Team Providers Care Sports Coordinator Name Role Phone iLng Middleton NP Primary Care Provider + Allergies [...] spur. I referred her to a new assayer helper today and she will call for an appointment. She will call if things get worse or if they change. She understands and agrees. Lumbar post-laminectomy syndrome 05/26/2020 Enthesopathy of hip region 05/26/2020 Disorder of bursae of shoulder region 05/26/2020 Chronic pain of right ankle 12/03/2019 Assessment & Plan (01/05/2020 1:01 PM EDT): I recommend she call [facility] and request a second opinion from [...] surgery w Dr Kc 11/26/17 Dr. Kc, Mccoll Assessment & Plan (05/06/2018 8:32 PM EDT): Patient with complex chronic pain status post multiple spinal surgeries. She has been using fentanyl patch 25 mcg, this is been tapered down from 37 mcg. This last month she excessively used oxycodone due to pain flare. I think she would be better served in a comprehensive pain management clinic. She was referred to [facility]. For the meantime we will [...] from physical therapy. She is following with crust sorter Assessment & Plan (12/01/2018 2:52 PM EDT): [...] Former Cigarettes 0.8 10 1 958 - 0149 Smokeless Tobacco: Never Alcohol Use Standard Drinks/Week [...] 1. Pt will explore exercise classes at [facility] once cleared by spinal surgeon. 2. Pt [...] EDT) SODIUM 140 133 - 146 mmol/L [facility] POTASSIUM 4.2 3.3 - 5.1 mmol/L [facility] CHLORIDE 105 96 - 108 mmol/L [facility] CO2 23 21 - 35 mmol/L [facility] BUN 27(H) 6 - 19 mg/dL [facility] CREATININE 0.80 0.5 - 1.5 mg/dL [facility] GLUCOSE 86 70 - 99 mg/dL [facility] ALBUMIN 4.2 3.9 - 4.8 g/dL [facility] TOTAL PROTEIN 7.2 6.5 - 8.0 g/dL [facility] CALCIUM 9.6 8.4 - 10.3 mg/dL [facility] ALKALINE PHOSPHATASE 102 39 - 117 U/L [facility] TOTAL BILIRUBIN 0.3 0.0 - 1.2 mg/dL [facility] AST 24 0 - 37 U/L [facility] ALT 21 0 - 40 U/L [facility] GLOBULIN 3.0 1 - 4.8 g/dL [facility] EGFR 68 >59 mL/min/1.7 3m2 [facility] Comment:Estimated glomerular filtration rate calculated using the CKD-EPI equation. ANION GAP 16 10 - 20 mmol/L [facility] Blood 12/05/2020 2:15 PM EDT 12/05/2020 2:16 PM EDT us Chely Samara Zurba [facility] BLOOD ORDERABLES Final Re sult [facility] [address] [place] [address] * OUTSIDE BONE DENSITY SCREENING (11/19/2013) BONE DENSITY SCREENING - EXTERNAL osteopenia us Historical Provider MD HEALTH MAINTENANCE Final Result from Last 3 Months or Most Recently Relevant to Health Maintenance Insurance [address] [place] [address] MEDICARE PART A & B [employer] MEDIC[employer] ENHANCE SUPPLEMENT MEDICARE PART A & B [facility] MEDICARE ENHANCE SUPPLEMENT MEDICARE PART A & B [facility] MEDICARE ENHANCE SUPPLEMENT [facility] Address: [address] [place] [id number] MEDICARE PART A & B MEDICARE ENHANCE SUPPLEMENT [facility] Address: [facility] [id number] BR[place] THAKKAR [id number] MEDICARE PART A & B [facility] MEDICARE ENHANCE SUPPLEMENT [facility] Address: [address] [place] THAKKAR [id number] MEDICARE PART A & B [facility] MEDICARE ENHANCE SUPPLEMENT [facility] Address: [address] [place] THAKKRA [address] MEDICARE PART A & B [facility] MEDICARE ENHANCE SUPPLEMENT [facility] Address: [address] [place]AKK[place] [address] MEDICARE PART A & B [facility] MEDICARE ENHANCE SUPPLEMENT MEDICARE PART A & B [facility] MEDICARE ENHANCE SUPPLEMENT [facility] Address: [facility] [id number] BR[place] THAKKAR [id number] Advance Directives For more information, please contact: [phone] (9AM - 5PM [facility], Saturday-Saturday) Documents on File Type Date Recorded Patient Leave Specialist Expl anation Healthcare Proxy 03/28/2018 1:38 PM Care Teams Sports Coordinator Relationship Specialty Start Date End Date Ling Middleton NP [address] [place] [address] PCP - General Family Medicine 07/05/21 Additional Source Comments The information contained in this document represents components of the legal health record. It is not the complete legal health record.[facility]
--- OUTSIDE RECORDS SUMMARY | 2025-05-12 17:55 | XMS_ITS | Encounter Summary ---
Author Organization [facility] Address [address] [place] [address] Phone Care Team Providers Care Complex Director Name Role Phone Ne Cho MD Unavailable [phone] Ling Middleton NP Primary Care Provider + Encounter Details Date Type Department Care Team (Late st Contact Info) Description 12/05/[address] [facility] [address] [place] [address] Darrin Gómez MD, [place] [address] [phone] [email or web address] Social History Tobacco Use Types Packs/Day Years Used Date Smoking Tobacco: Former Cigarettes 0.8 10 1 958 - 3879 Smokeless Tobacco: Never Alcohol Use Standard Drinks/Week Comments Yes 10 (1 standard drink = 0.6 oz pu re alcohol) Education Answer Date Recorded Are you interested in help w ith more adult education (for example, completing high school, GED, job training, learning the Bah[place]ian language, technical skills, or developing parenting skills)? [...] 1. Pt will explore exercise classes at [facility] once cleared by spinal surgeon. 2. Pt will engage in Weight Watchers classes. documented as of this encounter Visit Diagnoses Not on filedocumented in this encounter Additional Health Concerns Assessment Noted Time PHQ-2 Depression Total Score: 0 03/12/20 18 1:28 PM EDT documented as of this encounter Care Teams Complex Director Relationship Specialty Start Date End Date Ling Middleton NP [address] [place] [address] PCP - General Family Medicine 07/05/21 Ne Cho MD [address] [place] [address], [address] [place] Izquierdo [address] [email or web address] Insurance Assigned Provider 11/04/19 08/04/22 documented as of this encounter Additional Source Comments The information contained in this document represents components of the legal health record. It is not the complete legal health record.[facility]
--- OUTSIDE RECORDS SUMMARY | 2025-05-12 17:55 | XMS_ITS | Data Portability ---
Author Organization [place] - [facility] Address [address] [place] [address] Assessment Encounter Date Assessment Date Assessment LastModified [...] [degF] 65 /min 96 % 96 % 143/79 mm[Hg] Yun Harrell MD [address] [place] [address], [phone] [place], [place] - [facility] 8 16:35:36 Date Recorded Body temperature Heart rate Respiratory rate Systolic And Diastolic Provider Name and Address Organization Details Last Updated DateTime 12/02/2017 98.5 [degF] 80 /min 18 /min 125/59 mm[Hg] GUILHERME Cazares NP [address] [place] [address], [phone] [place] [address] [facility] 10:16:59 Date Recorded Body temperature Heart rate Respiratory rate Systolic And Diastolic Provider Name and Address Organization Details Last Updated DateTime 12/04/2017 99.7 [degF] 68 /min 18 /min 103/57 mm[Hg] GUILHERME Cazares NP [address] [place] [address], [phone] [place] [address] [facility] 09:45:06 Date Recorded Body temperature Heart rate Systolic And Diastolic Provider Name and Address Organization Details Last Updated DateTime 12/05/2017 97.8 [degF] 80 /min 147/78 mm[Hg] GUILHERME HALL NP [address] [place] [address], [phone] 12/05/2017 10:18:56 Date Recorded Body weight Body temperature Heart rate Oxygen saturation Oxygen saturation in Arterial blood by Pulse oximetry Systolic And Diastolic Provider Name and Address Organization Details Last Updated DateTime 8 12502.5 2 g 97.8 [degF] 72 /min 96 % 96 % 99/41 mm[Hg] GUILHERME Cazares NP [address] [place] [address], [phone] [place] [address] [facility] 8 09:38:58 Social History Question Answer Notes LastModified by Organizat ion Details LastModified Time Tobacco Smoking Status Former Smoker Yun Harrell MD [address] [place] [address], [phone], [facility] 12/01/2017 16:36:41 Live Alone Or With Others? Alone Daughter Is Nearby Information not available 12/01/2017 What Was The Date Of Your Most Recent Tobacco Screening? 12/01/2017 Information not available 02/19/2019 How Much Tobacco Do You Smoke? No Information not available 12/01/2017 Has Tobacco Cessation Counseling Been Provided? No Information not available 12/01/2017 Sex: Unknown Functional Status Question Answer Note LastModified by Organization D etails LastModified Time What is your level of alcohol consumption? None Information not available 12/01/2017 What is your occupation? retired Information not available 12/01/2017 Mental Status None recorded. Family History Nothing Reported. Medical History No medical history recorded. Gynecological HistoryNo gynecological history recorded. Obstetrics History GPAL:G 0 P 0 0 0 0 Past Encounters Encounter ID Performer Location Encounter Start Date Encounter Closed Date Diagnosis/Indication Diagnosis SNOMED-CT Code Diagnosis ICD10 Code Diagnosis IMO Codes Diagnosis Note [id number] Yun Harrell MD [facility] [address] [place] [address] 12/01/2017 16:22:36 12/06/2017 14:56:06 Spinal stenosis of lumbar region 48532123 M48.061 s/p decompress ion, pain is controlled on tylenol, dilaudid, fentanyl patch, PT, OT, wound care Essential hypertension 88734099 I10 cont amlodipin, losartan Hyperlipidemia 72847214 E78.5 cont lipitor Gastroesop hageal reflux disease without esophagitis 603922249 K21.9 cont PPI Constipation 23687940 K5 9.00 colace, senna, miralax ,enema if needed Depressive disorder 3548 9007 F32.9 cont zoloft, trazodone [id number] GUILHERME HALL NP [facility] [address] [place] [address] 12/02/2017 10:05:52 12/04/2017 11:11:45 Spinal stenosis of lumbar region 22712324 M48.061 s/p decompress ion, pain is controlled on tylenol, dilaudid, fentanyl patch, cont with PT and OT here; incision is covered with steri stips and DPD Essential hypertension 32191103 I10 cont amlodipin, losartango od BP control Hyperlipidemia 03544021 E78.5 cont lipitor Gastroesop hageal reflux disease without esophagitis 097593247 K21.9 cont PPI Constipation 78239397 K5 9.00 good BM; cont current med regiment Depressive disorder 3548 9007 F32.9 cont zoloft, trazodone [id number] GUILHERME HALL NP [facility] [address] [place] [address] 12/04/2017 09:44:05 12/06/2017 14:28:20 Spinal stenosis of lumbar region 40110760 M48.061 s/p decompress ion, pain is controlled on tylenol, dilaudid, fentanyl patch, cont with PT and OT here; incision is covered with steri stips. Essential hypertension 89208569 I10 cont amlodipin, losartango od BP control Hyperlipidemia 66274225 E78.5 cont lipitor Gastroesop hageal reflux disease without esophagitis 920502254 K21.9 cont PPI Constipation 46723391 K5 9.00 good BM; cont current med regiment Depressive disorder 1515 9007 F32.9 cont zoloft, trazodone Leukocytosis 117903185 D 72.829 wbc 12; pt has a fever; will get UA [id number] GUILHERME HALL NP [facility] [address] [place] [address] 12/05/2017 10:17:51 12/10/2017 16:37:53 Spinal stenosis of lumbar region 95429581 M48.061 s/p decompress ion, pain is controlled on tylenol, dilaudid, fentanyl patch, cont with PT and OT here; incision is covered with steri stips.pt jose be d/c home in a few days Leukocytosis 573764841 D 72.829 UA neg, afebrile; cbc pending from today Essential hypertension 61002676 I10 cont amlodipine , losartango od BP control Constipation 43701155 K5 9.00 good BM; cont current med regiment [id number] GUILHERME HALL NP [facility] [address] [place] [address] 12/06/2017 09:34:53 12/13/2017 12:45:01 Spinal stenosis of lumbar region 80716857 M48.061 s/p decompress ion, pain is controlled on tylenol, dilaudid, fentanyl patch,will give rx for fentalyn pathc #4 to go home withMass pat checkedf/u wit [place] in 8 weeks Essential hypertension 04685687 I10 cont amlodipin, losartan Hyperlipidemia 05639005 E78.5 cont lipitor Gastroesop hageal reflux disease without esophagitis 486337871 K21.9 cont PPI Constipation 54281718 K5 9.00 colace, senna, miralax ,enema if needed Depressive disorder 3547 9007 F32.9 cont zoloft, trazodone Health Concerns Section Related Observation LastModified by Organization Detai ls LastModified Time None Recorded Concern Status LastModified by Organization Details LastModified Time None Recorded Advance Directives Directive None Recorded Payers Insurance Date Sequence Insurance Name Policy Number Policy Blanco Covered Member ID Blanco Member ID Guarantor Name 12/04/2017 1 [place]: [employer] Brendakarina Wolf [id number] Brenda Andras 12/04/2017 2 [facility] - MEDICARE ENHANCE (INDEMNITY PLAN) Brenda Andyani [id number] Brenda Andras Notes Date Note Type Note Provider Name and Address Organization Details Recorded Time 12/01/2017 text/html ROS as noted in the HPI seen for admission- came from [facility] where pt had L3-S1 decompression.Pt tolerated procedure well, pain is controlled on current fentanyl patch and dilaudidPt came to for further care Yun Harrell MD [address] [place] [address], [phone], [facility] 12/01/2017 16:43:01 12/02/2017 text/html ROS as noted in the HPI seeing pt today for f/u; continues to work with therapy here, making progress. Pt came from [facility] where pt had L3-S1 decompression.Pt tolerated procedure well, pain is controlled on current fentanyl patch and dilaudid. GUILHERME HALL NP [address] [place] [address], [phone], [facility] 12/02/2017 10:21:10 12/04/2017 text/html ROS as noted in the HPI seeing pt today for f/u; continues to work with therapy here, making progress. Pt came from [facility] where pt had L3-S1 decompression.Pt tolerated procedure well, pain is controlled on current fentanyl patch and dilaudid. GUILHERME HALL NP [address] [place] [address], [phone], [facility] 12/04/2017 12:59:51 12/05/2017 text/html ROS as noted in the HPI seeing pt today for f/u; continues to work with therapy here, making progress.Ua was obtained yesterday; pt had elevated wbc Pt came from [facility] where pt had L3-S1 decompression.Pt tolerated procedure well, pain is controlled on current fentanyl patch and dilaudid. GUILHERME HALL NP [address] [place], [phone], [facility] 12/07/2017 15:19:06 12/06/2017 text/html seeing pt today for d/c; pt has done well with therapy here, made progress, will be d/c home tomorrow. GUILHERME HALL NP [address] [place] [address], [phone], [facility] 12/08/2017 11:15:02 OBGyn Episode No OBEpisode recorded.
--- OUTSIDE RECORDS SUMMARY | 2025-05-12 17:55 | XMS_ITS | Data Portability ---
Author Organization [facility] Pain Managem ent, PAIN OFFICE Address [address] [facility] [address] [place] [address] Care Team Providers Care Student Ministries Director Name Role Phone DANNY SHALA Referring Provider [...] the same. She needs a driver license agent on the day of the procedure. If [...] pain back to baseline.She is here for [facility] radiofrequency ablation of L4, L5 and [...] patch 2015 016 miguel [id number], [address] [facility] [place], [address], 6 11:36:11 Celebrex 200 mg capsule 2015 016 [id number], [address] [place], [address], 6 08:56:14 Patient TargetsNo targets recorded. Patient Instructions Encounter Date Encounter Id Patient Instructions Last Modified By Organization Details Last Modified Time 08/16/2015 [id number] She was advised against bed rest lasting longer than four days and to continue activities as tolerated. [email or web address] Not available 08/16/2015 13:04:51 09/01/2015 [id number] She was advised against bed rest lasting longer than four days and to continue activities as tolerated. [email or web address] Not available 09/01/2015 15:28:37 09/07/2015 [id number] She was advised against bed rest lasting longer than four days and to continue activities as tolerated. [email or web address] Not available 09/08/2015 14:18:24 09/13/2015 [id number] She was advised against bed rest lasting longer than four days and to continue activities as tolerated. [email or web address] Not available 09/13/2015 14:59:45 09/23/2015 [id number] She was advised against bed rest lasting longer than four days and to continue activities as tolerated. [email or web address] Not available 09/27/2015 10:03:45 Reason for Referral None Reported. Results Created Date Observation Date Name Description Value Unit Range Abnormal Flag Note LastModifiedBy Organization Detail LastModifiedTime 08/22/19 16 08/22/2015 x-ray , tony lissette, 2 views No observ ation record ed. [facility] [address] [place] [address], [address], 09/01/2015 15:28:37 Result Notes None recorded. Problems Name Problem SNOMED Code Status Onset Date Resolution Date Notes Provider Name and Address Organization Details Recorded Time Enthesopathy of hip region 75705166 Active Johnny henning MD [address] , [address], [facility] [place], [address], [place] [facility] 6 11:36:10 Lumbosacral spondylosis without myelopathy 05125031 Active Johnny henning MD [address] , [address], [facility] [place], [address], [place] [facility] 6 11:36:10 Lumbar post-laminecto my syndrome [id number] Jillian henning MD [address] , [address], [facility] [place], [address], [place] [facility] 6 11:36:10 Lumbosacral radiculitis 41586938 Jillian henning MD [address] , [address], [facility] [place], [address], [place] [facility] 6 11:36:10 Disorder of bursa of shoulder region 05939848 Jillian henning MD [address] , [address], [facility] [place], [address], [place] [facility] 6 11:36:11 Muscle pain 81232455 Jillian henning MD [address] , [address], [facility] [place], [address], [place] [facility] 6 11:36:10 Problem Notes None recorded. Procedures Surgical History Date Name Laterality Status Provider Name and Address Organization Details Recorded Time 09/13/19 16 Radiofrequency of Lumbar/Sacral medial branches supplying the facets under fluoroscopic guidance completed Johnny Montanez MD [address] , [address], [place], [address], [place] [facility] 09/14/2015 14:17:33 09/07/19 16 Lumbar median branch block under fluroscopic guidance completed Johnny Montanez MD [address] , [address], [place], [address], [place] [facility] 09/08/2015 14:23:25 08/16/19 16 Fluoroscopic Guided Lumbar Facet Steroid Injections of levels completed Johnny Montanez MD [address] , [address], [place], [address], [place] [facility] 08/16/2015 13:09:50 03/08/20 15 Fluoroscopic Guided Lumbar Facet Steroid Injections of levels completed Johnny Montanez MD [address] , [address], [place], [address], [place] [facility] 03/09/2015 09:22:44 [...] % 97 % 182/72 mm[Hg] Anisha Mendieta [facility] Pain Management 6 10:23:34 Date Recorded Oxygen saturation Oxygen saturation in Arterial blood by Pulse oximetry Heart rate Systolic And Diastolic Provider Name and Address Organization Details Last Updated DateTime 09/01/2015 97 % 97 % 76 /min 118/58 mm[Hg] Anisha Mendieta [facility] Pain Management 6 15:00:38 Date Recorded Oxygen saturation Oxygen saturation in Arterial blood by Pulse oximetry Heart rate Systolic And Diastolic Provider Name and Address Organization Details Last Updated DateTime 09/07/2015 99 % 99 % 65 /min 140/88 mm[Hg] Anisha Mendeita [facility] Pain Management 6 09:43:17 Date Recorded Oxygen saturation Oxygen saturation in Arterial blood by Pulse oximetry Heart rate Systolic And Diastolic Provider Name and Address Organization Details Last Updated DateTime 09/13/2015 98 % 98 % 67 /min 157/45 mm[Hg] Anisha Mendieta [facility] Pain Management 6 10:18:19 Date Recorded [...] Or Recreational Drugs Have You Used? No [id number] Information not available 05/13/2020 Education [address] [address] Information no t available 03/01/2015 Live Alone Or With Others? Alone vencor Information not available 03/01/2015 Marital Status vencor Informatio n not available 03/01/2015 How Many Years Have You Smoked Tobacco? 20 [id number] Information not available 05/13/2020 Sex: Unknown Functional Status Question Answer Note LastModified by Organization D etails LastModified Time What is your level of alcohol consumption? Moderate Wine [id number] Information not available 05/13/2020 Are you currently employed? No [id number] Information not available 05/13/2020 Mental Status None [...] ICD10 Code Diagnosis IMO Codes Diagnosis Note [id number] Johnny Montanez MD PAIN OFFICE [address] [place] [address] 03/01/2015 10:09:29 03/02/2015 11:29:26 Lumbar post-laminectomy syndrome 009982000 Lumbosacra l radiculitis 22503138 Lumbosacra l spondylosis without myelopathy 15123649 Enthesopat hy of hip region 75632848 04831 Johnny Montanez MD PAIN OFFICE [address],[place] [address] 03/08/2015 14:21:23 03/09/2015 09:25:14 Lumbosacral spondylosis without myelopathy 90721322 Enthesopat hy of hip region 40692888 Lumbosacra l radiculitis 40167616 Lumbar post-laminectomy syndrome 255753806 06977 Johnny Montanez MD [facility] PAIN OFFICE [address] [facility] [place] [address] 04/11/2015 14:50:34 04/12/2015 09:13:56 Lumbosacral spondylosis without myelopathy 03315377 Enthesopat hy of hip region 50606497 Lumbosacra l radiculitis 06885426 Lumbar post-laminectomy syndrome 961998640 12960 Johnny Montanez MD PAIN OFFICE [address] [facility] [place] [address] 08/16/2015 10:11:47 08/16/2015 14:46:00 Lumbosacral spondylosis without myelopathy 10579833 M47.817 Enthesopat hy of hip region 85670719 M76.9 Lumbosacra l radiculitis 83961179 M54.17 Lumbar post-laminectomy syndrome 856066010 M96.1 Disorder o f bursa of shoulder region 51119445 M25.812 99498 Johnny Montanez MD [facility] PAIN OFFICE [address] [facility] [place] [address] 09/01/2015 14:03:53 09/01/2015 15:37:11 Lumbosacral spondylosis without myelopathy 01263056 M47.817 Enthesopat hy of hip region 53004314 M76.9 Disorder o f bursa of shoulder region 17688987 M25.812 Lumbosacra l radiculitis 32270259 M54.17 Lumbar post-laminectomy syndrome 605368372 M96.1 58577 Johnny Montanez MD [facility] PAIN OFFICE [address] [facility] [place] [address] 09/07/2015 09:36:32 09/08/2015 14:24:03 Lumbosacral spondylosis without myelopathy 18070792 M47.817 Enthesopat hy of hip region 33139143 M70.61 Disorder o f bursa of shoulder region 66063741 M25.812 Lumbosacra l radiculitis 85241594 M54.17 Lumbar post-laminectomy syndrome 869191786 M96.1 43009 Johnny Montanez MD PAIN OFFICE [address] [place] [address] 09/13/2015 10:08:37 09/13/2015 15:13:45 Lumbosacral spondylosis without myelopathy 31680648 M47.817 Lumbar post-laminectomy syndrome 546793542 M96.1 Enthesopat hy of hip region 33763205 M70.61 Disorder o f bursa of shoulder region 45657462 M25.812 Lumbosacra l radiculitis 25246263 M54.17 87908 Johnny Montanez MD PAIN OFFICE [address] [place] [address] 09/23/2015 08:47:47 09/27/2015 11:36:33 Lumbosacral spondylosis without myelopathy 88871353 M47.817 Lumbar post-laminectomy syndrome 817926590 M96.1 Lumbosacra l radiculitis 50917273 M54.17 Muscle pain 83067163 M79 .1 Enthesopat hy of hip region 07258895 M70.61 Disorder o f bursa of shoulder region 98840337 M25.812 Health Concerns Section Related Observation LastModified by Organization Detai ls LastModified Time None Recorded Concern Status LastModified by Organization Details LastModified Time None Recorded Advance Directives Directive None Recorded Payers Insurance Date Sequence Insurance Name Policy Number Policy Blanco Covered Member ID Blanco Member ID Guarantor Name 04/11/2015 1 ROSITA BARRIOS - MEDICARE-[address] [address] [facility] [employer] (MEDICARE) Brenda Wolf [id number] Brenda Wolf 09/01/2015 1 [place] B-[place]: [facility] Brenda Wolf [id number] Brenda Wolf 09/27/2015 2 [facility] (MEDICARE SUPPLEMENT) Brenda [id number] Brenda Wolf Notes Date Note Type Note Provider [...] her left shoulder. Johnny Montanez MD [address] [facility] , [address], [place], [address], [facility] [employer] Pain Management 08/18/2015 09:24:14 09/01/2015 text/html She is here for a follow up after a left shoulder X-ray. 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 She states she has seen a PA at [facility] and she recommended a total knee [...] an issue presently. Johnny Montanez MD [address] [facility] , [address], [place], [address], [facility] [employer] [facility] Pain Management 09/02/2015 11:09:45 09/07/2015 text/html She is here for a trial of right median branch block under fluoroscopic guidance at L4, L5and S1 medial branches. Johnny Montanez MD [address] [facility] , [address], [place], [address], [facility] [employer] [facility] Pain Management 09/08/2015 15:45:44 09/13/2015 text/html She [...] with the RF. Johnny Montanez MD [address] [facility] , [address], [place], [address], [facility] Pain Management 09/14/2015 14:17:41 09/23/2015 text/html She is here for a follow up. She states she is noticing pain in her muscles in the low back and she had difficulty sleeping due to pain and muscle spasms since the radiofrequency ablation. She has been applying ice. She has seen Tamika at [facility] and has started synvisc injections for [...] or bowel incontinence. Johnny Montanez MD [address] [facility] , [address], [place], [address], [facility] Pain Management 10/03/2015 08:52:43 OBGyn Episode No OBEpisode recorded.
== END 2025-05-12 15:00 | disposition home or self-care (01) ==
LOC: HO.HMCFM 14:11
PROVIDERS: PCP Physician Assistant; Visit Provider Physician Assistant
DX: I10 Essential (primary) hypertension (principal); M96.1 Postlaminectomy syndrome, not elsewhere classified; E78.00 Pure hypercholesterolemia, unspecified

== ENCOUNTER → 2025-05-12 14:11 | Outpatient (BNVA) | payer MEDICARE, OTHER, SELFPAY | PROVIDERS: PCP Physician Assistant; Visit Provider Physician Assistant | DX: I10 Essential (primary) hypertension (principal); J44.9 Chronic obstructive pulmonary disease, unspecified; I48.91 Unspecified atrial fibrillation; G89.29 Other chronic pain; M96.1 Postlaminectomy syndrome, not elsewhere classified; E78.00 Pure hypercholesterolemia, unspecified; R30.0 Dysuria; Z99.81 Dependence on supplemental oxygen; Z79.891 Long term (current) use of opiate analgesic; Z79.01 Long term (current) use of anticoagulants | CPT/HCPCS: 99212 ==

== ENCOUNTER 2025-05-25 14:53 | Outpatient (AMB) | payer MEDICARE, OTHER, SELFPAY ==
--- OUTSIDE RECORDS SUMMARY | 2017-02-20 06:52 | XMS_ITS | Continuity of Care Document ---
Author Organization [facility] cine Address [address] [facility] 2nd [place] [address] Phone Care Team Providers Care Gasket Winder Name Role Phone Rodney Campos MD Unavailable [...] Location Reason(s) For Visit Diagnoses Date Provider [facility], [address] [place] [address], [place], [place], [id number], tel:[phone] [facility] No Information Beth Stevens. [address] [place] [address], [address] [place] [address], [place], [place], [id number], [place]. tel:[phone] [facility], [address] [place], [place] [address], [place], [place], [id number], tel:[phone] [facility] Spondyls w/o myelopathy or radiculopathy, lumbosacr region Beth Rodney. [address] [place] [address], [place], [place], [id number], [place]. tel:[phone] [facility], [address] [place] [address], [place], [place], [id number], [place] tel:[phone] [facility] No Information [facility]. [address] [place] [address], [id number], [place]. tel:[phone] [facility], [address] [place] [address], [place], [place], [id number], [place] tel:[phone] [facility] Spondyls w/o myelopathy or radiculopathy, lumbosacr region Beth Rodney. [address] [place] [address], [place], [place], [id number], [place]. tel:[phone] [facility], [address] [place] [address], [place], [place], [id number], [place] tel:[phone] [facility] No Information Surgery [facility]. [address] [place] [address], [id number], [place]. tel:[phone] MD_Follow Up Level 4 [facility], [address] [place] [address], [place], [place], [id number], [place] tel:[phone] [facility] Spondylosis without myelopathy or radiculopathy, lumbosacral regionOther spondylosis with radiculopathy, lumbar region Yoli Justice. [address] [place] [address], [address], [place]. tel:[phone] [facility], [address] [place] [address], [place], [place], [id number], [place] tel:[phone] [facility] Spondylosis w/o myelopathy or radiculopathy, thoracic region Slidell Rodney. [address] [place] [address], [place], [place], [id number], [place]. tel:[phone] [facility], [address] [place] [address], [place], [place], [id number], [place] tel:[phone] [facility] [facility] No Information [facility]. [address] [place] [address], [id number], [place]. tel:[phone] [facility], [address] [place] [address], [place], [place], [id number], [place] tel:[phone] [facility] Spondylosis w/o myelopathy or radiculopathy, cervical region Blanca Obregon. [address] [place] [address], [place], [place], [id number], [place]. tel:[phone] [facility], [address] [place] [address], [place], [place], [id number], [place] tel:[phone] [facility] No Information [facility]. [address] [place] [address], [id number], [place]. tel:[phone] [facility], [address] [place] [address], [place], [place], [id number], [place] tel:[phone] [facility] Spondylosis w/o myelopathy or radiculopathy, cervical region Beth Stevens. [address] [place] [address], [place], [place], [id number], [place]. tel:[phone] [facility], [address] [place] [address], [place], [place], [id number], [place] tel:[phone] [facility] No Information [facility]. [address] [place] [address], [id number], [place]. tel:[phone] [facility], [address] [place] [address], [place], [place], [id number], [place] tel:[phone] [facility] Cervical disc disorder w radiculopathy, unsp cervical region Blanca Obregon. [address] [place] [address], [place], [place], [id number], [place]. tel:[phone] [facility], [address] [place] [address], [place], [place], [id number], [place] tel:[phone] [facility] [facility] No Information [facility]. [address] [place] [address], [id number], [place]. tel:[phone] MD_Follow Up Level 4 [facility], [address] [place], [place] [address], [place], [place], [id number], [place] tel:[phone] [facility] Postlaminectomy syndrome, not elsewhere classified Yoli Reshma. [address] [place] [address], [address], [place]. tel:[phone] MD_Follow Up Level 4 [facility], [address] [place], [place] [address], [place], [place], [id number], [place] tel:[phone] [facility] Spondyls w/o myelopathy or radiculopathy, lumbosacr region Otilia Marin. [address] [place] [address], [id number], [place]. tel:[phone] [facility], [address] [place] [address], [place], [place], [id number], [place] tel:[phone] [facility] Cervical disc disorder w radiculopathy, unsp cervical region Beth Stevens. [address] [place] [address], [facility], [place], [place], [id number], [place]. tel:[phone] [facility], [address] [place], [place] [address], [place], [place], [id number], [place] tel:[phone] [facility] No Information [facility]. [address] [place] [address], [id number], [place]. tel:[phone] MD_Follow Up Level 4 [facility], [address] [place], [place] [address], [place], [place], [id number], [place] tel:[phone] [facility] Spondyls w/o myelopathy or radiculopathy, lumbosacr region Broderick Nye. [address] [place] [address], [id number], [place]. tel:[phone] [facility], [address] [place], [place] [address], [place], [place], [id number], [place] tel:[phone] [facility] [facility] Cervical disc disorder w radiculopathy, unsp cervical region Beth Stevens. [address] [place] [address], [place], [place], [id number], [place]. tel:[phone] [facility], [address] [place] [address], [place], [place], [id number], [place] tel:[phone] [place] [facility] No Information [facility]. [address] [place] [address], [id number], [place]. tel:[phone] MD_Follow Up Level 4 [facility], [address] [place] [address], [place], [place], [id number], [place] tel:[phone] [facility] No Information Yoli Justice. [address] [place] [address], [id number], [place]. tel:[phone] [facility], [address] [place] [address], [place], [place], [id number], [place] tel:[phone] [facility] No Information Beth Stevens. [address] [place] [address], [place], [place], [id number], [place]. tel:[phone] [facility], [address] [place] [address], [place], [place], [id number], [place] tel:[phone] [place] [facility] No Information [facility]. [address] [place] [address], [id number], [place]. tel:[phone] MD_Follow Up Level 4 [facility], [address] [place] [address], [place], [place], [id number], [place] tel:[phone] [facility] Spondylosis without myelopathy or radiculopathy, lumbosacral region Beth Stevens. [address] [place] [address], [place], [place], [id number], [place]. tel:[phone] [facility], [address] [place] [address], [place], [place], [id number], [place] tel:[phone] [facility] [facility] Postlaminectomy syndrome, not elsewhere classified Blanca Obregon. [address] [place] [address], [place], [place], [id number], [place]. tel:[phone] [facility], [address] [place] [address], [place], [place], [id number], [place] tel:[phone] [facility] [facility] No Information Surgery [facility]. [address] [place] [address], [id number], [place]. tel:[phone] MD_Follow Up Level 4 [facility], [address] [place] [address], [place], [place], [id number], [place] tel:[phone] [facility] Other spondylosis with radiculopathy, lumbar region Otilia Marin. [address] [place] [address], [id number], [place]. tel:[phone] MD_Follow Up Level 4 [facility], [address] [place] [address], [place], [place], [id number], [place] tel:[phone] [facility] Other spondylosis with radiculopathy, lumbar region Beléna Tania. [address] [place] [address], [id number], [place]. tel:[phone] [facility], [address] [place] [address], [place], [place], [id number], [place] tel:[phone] [facility] No Information Albuquerquecristhian LeesVivian. [address] [place] [address], [address], [place]. tel:[phone] [facility], [address] [place] [address], [place], [place], [id number], [place] tel:[phone] [place] [facility] No Information [facility]. [address] [place] [address], [id number], [place]. tel:[phone] [facility], [address] [place] [address], [place], [place], [id number], [place] tel:[phone] [place] [facility] No Information Beth Stevens. [address] [place] [address], [place], [place], [id number], [place]. tel:[phone] [facility], [address] [place] [address], [place], [place], [id number], [place] tel:[phone] [facility] No Information Otilia Marin. [address] [place] [address], [id number], [place]. tel:[phone] [facility], [address] [place] [address], [place], [place], [id number], tel:[phone] [facility] No Information Arsalanrichardtammy Praveen. [address] [place] [address], [address] [place] [address], [place], [place], [id number], [place]. tel:[phone] MD_Follow Up Level 5 [facility], [address] [place] [address], [place], [place], [id number], [place] tel:[phone] [facility] No Information Otilia Marin. [address] [place] [address], [id number], . tel:[phone] Behavioral (Psych) 60 mins [facility], [address] [place] [address], [place], [place], [id number], [place] tel:[phone] [facility] Spondylosis without myelopathy or radiculopathy, lumbosacral region Hermelinda Peña. [address] [place] [address], [id number], [place]. tel:[phone] [facility], [address] [place] [address], [place], [place], [id number], [place] tel:[phone] [place] [facility] No Information [facility]. [address] [place] [address], [id number], [place]. tel:[phone] [facility], [address] [place] [address], [place], [place], [id number], [place] tel:[phone] [facility] No Information Beth Stevens. [address] [place] [address], [address] [place] [address], [place], [place], [id number], [place]. tel:[phone] [facility], [address] [place] [address], [place], [place], [id number], [place] tel:[phone] [place] [facility] No Information Slidell Rodney. [address] [place] [address], [place], [place], [id number], [place]. tel:[phone] [facility], [address] [place] [address], [place], [place], [id number], [place] tel:[phone] [facility] No Information [facility]. [address] [place] [address], [id number], [place]. tel:[phone] [facility], [address] [place] [address], [place], [place], [id number], [place] tel:[phone] [facility] No Information Slidell Rodney. [address] [place] [address], [place], [place], [id number], [place]. tel:[phone] MD_Follow Up Level 4 [facility], [address] [place] [address], [place], [place], [id number], [place] tel:[phone] [facility] Spondylosis without myelopathy or radiculopathy, lumbosacral region Slidell Rodney. [address] [place] [address], [place], [place], [id number], [place]. tel:[phone] [facility], [address] [place] [address], [place], [place], [id number], [place] tel:[phone] [place] [facility] No Information Slidell Rodney. [address] [place] [address], [place], [place], [id number], [place]. tel:[phone] [facility], [address] [place] [address], [place], [place], [id number], [place] tel:[phone] [place] [facility] No Information [facility]. [address] [place] [address], [id number], [place]. tel:[phone] [facility], [address] [place] [address], [place], [place], [id number], [place] tel:[phone] [place] [facility] No Information Slidell Rodney. [address] [place] [address], [id number], [place]. tel:[phone] [facility], [address] [place], [place] [address], [place], [place], [id number], [place] tel:[phone] [place] [facility] No Information [facility]. [address] [place] [address], [id number], [place]. tel:[phone] [facility], [address] [place] [address], [place], [place], [id number], [place] tel:[phone] [place] [facility] No Information Beth Stevens. [address] [place] [address], [address] [place] [address], [place], [place], [id number], [place]. tel:[phone] [facility], [address] [place] [address], [place], [place], [id number], [place] tel:[phone] [place] [facility] No Information [facility]. [address] [place] [address], [id number], [place]. tel:[phone] MD_Follow Up Level 3 [facility], [address] [place] [address], [place], [place], [id number], [place] tel:[phone] [facility] Lumbosacral spondylosis without myelopathy Beth Stevens. [address] [place] [address], [place], [place], [id number], [place]. tel:[phone] MD_Follow Up Level 3 [facility], [address] [place] [address], [place], [place], [id number], [place] tel:[phone] [facility] Knee Pain (chief complaint) Enthesopathy of knee, unspecified Roque Garcia. [address] [place] [address], [address], [place]. tel:[phone] [facility], [address] [place] [address], [place], [place], [id number], [place] tel:[phone] [place] [facility] No Information Otoniel Wang. [address] [place] [address], [address] [place] [address], [place], [place], [id number], [place]. tel:[phone] [facility], [address] [place] [address], [place], [place], [id number], [place] tel:[phone] [place] [facility] No Information [facility]. [address] [place] [address], [id number], [place]. tel:[phone] MD_Follow Up Level 3 [facility], [address] [place] [address], [place], [place], [id number], [place] tel:[phone] [facility] Opioid type dependence, continuous useLumbosacral spondylosis without myelopathyComplete rupture of rotator cuff Bethsamson Stevens. [address] [place] [address], [place], [place], [id number], [place]. tel:[phone] [facility], [address] [place] [address], [place], [place], [id number], [place] tel:[phone] [place] [facility] No Information Beth Stevens. [address] [place] [address], [place], [place], [id number], [place]. tel:[phone] [facility], [address] [place] [address], [place], [place], [id number], [place] tel:[phone] [place] [facility] No Information [facility]. [address] [place] [address], [id number], [place]. tel:[phone] MD_Follow Up Level 4 [facility], [address] [place] [address], [place], [place], [id number], [place] tel:[phone] [facility] back pain (chief complaint)s houlder pain (chief complaint) No Information Del Avalos. [address] [place] [address], [id number], [place]. tel:[phone] MD_Follow Up Level 4 [facility], [address] [place] [address], [place], [place], [id number], [place] tel:[phone] [facility] shoulder pain (chief complaint) Osteoarthrosis, localized, primary, involving shoulder regionOther specified disorders of bursae and tendons in shoulder regionMyalgia and myositis, unspecifiedComplete rupture of rotator cuff Babatunde Jauregui. [address] [place] [address], [address], [place]. tel:[phone] NP_Office Visit Level 4 [facility], [address] [place] [address], [place], [place], [id number], [place] tel:[phone] [facility] shoulder pain (chief complaint) Lumbosacral spondylosis without myelopathyOther specified disorders of bursae and tendons in shoulder regionBicipital tenosynovitisMyalgia and myositis, unspecified Babatunde Jauregui. [address] [place], [address], . tel:[phone] MD_Follow Up Level 4 [facility], [address] [place] [address], [place], [place], [id number], [place] tel:[phone] [facility] back pain (chief complaint)s houlder pain (chief complaint) No Information Mathis Angélica Sheri Avalos. [address] [place], [place], [id number], [place]. tel:[phone] [facility], [address] [place] [address], [place], [place], [id number], [place] tel:[phone] [place] [facility] No Information Beth Stevens. [address] [place] [address], [place], [place], [id number], [place]. tel:[phone] [facility], [address] [place] [address], [place], [place], [id number], [place] tel:[phone] [place] [facility] No Information [facility]. [address] [place] [address], [id number], [place]. tel:[phone] [facility], [address] [place] [address], [place], [place], [id number], [place] tel:[phone] [facility] No Information Crhistianne Grimes. [address] [facility], [address], [place], [place], [id number], [place]. tel:[phone] [facility], [address] [place] [address], [place], [place], [id number], [place] tel:[phone] [place] [facility] No Information Beth Stevens. [address] [place] [address], [address] [place] [address], [place], [place], [id number], [place]. tel:[phone] [facility], [address] [place], [place] [address], [place], [place], [id number], [place] tel:[phone] [place] [facility] No Information [facility]. [address] [place] [address], [id number], . tel:[phone] MD_Follow Up Level 5 [facility], [address] [place], [place] [address], [place], [place], [id number], [place] tel:[phone] [facility] back pain (chief complaint) No Information Yoli Reshma. [address] [place] [address], [address], . tel:[phone] [facility], [address] [place] [address], [place], [place], [id number], tel:[phone] [facility] back pain (chief complaint) Adjustment disorder with mixed anxiety and depressed mood Shiva Samano. [address] [place] [address], [address], [place]. tel:[phone] [facility], [address] [place], [place] [address], [place], [place], [id number], [place] tel:[phone] [place] [facility] No Information Beth Stevens. [address] [place] [address], [facility], [place], [place], [id number], [place]. tel:[phone] [facility], [address] [place], [place] [address], [place], [place], [id number], [place] tel:[phone] [place] [facility] No Information [facility]. [address] [place] [address], [id number], [place]. tel:[phone] NP_Office Visit Level 5 [facility], [address] [place], [place] [address], [place], [place], [id number], [place] tel:[phone] [facility] arm pain (chief complaint) Hypertension, UnspecifiedOpioid type dependence, continuous useTherapeutic Drug MonitoringSciatica Due To Displacement Of Lumbar DiscPostlaminectomy syndrome of thoracic regionLumbosacral spondylosis without myelopathySpinal Stenosis, Lumbar Region, With Neurogenic Claudication Robert Rodríguez. [address] [place] [address], [address] Floor, [place], [place], [id number], [place]. tel:[phone] Family History Family Member Type Diagnosis Age [...] type Covered democrat ID Authoriza tion(s) Medicare [id number] [place] MCR Supplement Plan [id number] Social History Type Description Quantity Date Captured [...]
--- NOTE | 2025-05-25 15:27 | AM.OFFVISNUR ---
Intake Visit Reasons: evenity #11 Allergies bee pollen Allergy (Unknown, Verified 05/12/25 14:18) Unknown house dust mite Allergy (Unknown, Verified 05/12/25 14:18) Unknown adhesive tape Adverse Reaction (Intermediate, Verified 05/12/25 14:18) Rash Office Meds romosozumab-aqqg 210 mg/2.34 mL(105 mg/1.17 mL x2)subcutaneous syringe Performing Provider: Rommel Lopez MD Performing Location: [facility] Endocrinology Administered by: Aydee White RN on 05/25/25 15:02 Dose Route Admin Location Dispensed Lot Number Expiration Date NDC Review Trainer 210 mg subcut bilateral upper arms 2.34 mL [id number] 04/27/27 73115-005-07 [facility] Total Dispensed Waste 2.34 mL 0 % Comments: No adverse reactions reported from previous injection. Pt tolerated injection well. Pt scheduled in 4 weeks for next appt. No further questions at this time. Assessment & Plan Assessment & Plan Orders: Orders AMB Romosozumab Injection Patient Supplied Today M81.0 - Age-related osteoporosis without current pathological fracture Coding
--- OUTSIDE RECORDS SUMMARY | 2025-05-25 19:18 | XMS_ITS | Clinical Summary ---
Author Organization [facility] Address [address] [place] [address] Phone Care Team Providers Care Audio Visual Production Specialist Name Role Phone Ling Middleton NP Primary [...] spur. I referred her to a new ball mill mixer today and she will call for an appointment. She will call if things get worse or if they change. She understands and agrees. Lumbar post-laminectomy syndrome 05/26/2020 Enthesopathy of hip region 05/26/2020 Disorder of bursae of shoulder region 05/26/2020 Chronic pain of right ankle 12/03/2019 Assessment & Plan (01/05/2020 1:01 PM EDT): I recommend she call [facility] and request a second opinion from [...] surgery w Dr Kc 11/26/17 Dr. Kc, [place] Assessment & Plan (05/06/2018 8:32 PM EDT): Patient with complex chronic pain status post multiple spinal surgeries. She has been using fentanyl patch 25 mcg, this is been tapered down from 37 mcg. This last month she excessively used oxycodone due to pain flare. I think she would be better served in a comprehensive pain management clinic. She was referred to [place]. For the meantime we will [...] from physical therapy. 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 Pt will explore exercise classes at [facility] once cleared by spinal surgeon. [...] EDT) SODIUM 140 133 - 146 mmol/L [facility] POTASSIUM 4.2 3.3 - 5.1 mmol/L [facility] CHLORIDE 105 96 - 108 mmol/L [facility] CO2 23 21 - 35 mmol/L [facility] BUN 27(H) 6 - 19 mg/dL [facility] CREATININE 0.80 0.5 - 1.5 mg/dL [facility] GLUCOSE 86 70 - 99 mg/dL [facility] ALBUMIN 4.2 3.9 - 4.8 g/dL [facility] TOTAL PROTEIN 7.2 6.5 - 8.0 g/dL [facility] CALCIUM 9.6 8.4 - 10.3 mg/dL [facility] ALKALINE PHOSPHATASE 102 39 - 117 U/L [facility] TOTAL BILIRUBIN 0.3 0.0 - 1.2 mg/dL [facility] AST 24 0 - 37 U/L [facility] ALT 21 0 - 40 U/L [facility] GLOBULIN 3.0 1 - 4.8 g/dL [facility] EGFR 68 >59 mL/min/1.7 3m2 [facility] Comment:Estimated glomerular filtration rate calculated using the CKD-EPI equation. ANION GAP 16 10 - 20 mmol/L [facility] Blood 12/05/2020 2:15 PM EDT 12/05/2020 2:16 PM EDT us Chely Samara Zurba [employer]PERATIONS MANAGER LAB BLOOD ORDERABLES Final Re sult [facility] [address] [place] [address] * OUTSIDE BONE DENSITY SCREENING (11/19/2013) BONE DENSITY SCREENING - EXTERNAL osteopenia us Historical Provider MD HEALTH MAINTENANCE Final Result from Last 3 Months or Most Recently Relevant to Health Maintenance Insurance [address] [place] [address] MEDICARE PART A & B [facility] MEDIC[facility] ENHANCE SUPPLEMENT MEDICARE PART A & B [facility] MEDICARE ENHANCE SUPPLEMENT MEDICARE PART A & B [facility] MEDICARE ENHANCE SUPPLEMENT [facility] Address: [address] [place] [address] MEDICARE PART A & B MEDICARE ENHANCE SUPPLEMENT [facility] Address: [facility] [id number] [place] [id number] MEDICARE PART A & B [place] MEDICARE ENHANCE SUPPLEMENT [facility] Address: [address] [place] [address] MEDICARE PART A & B [facility] MEDICARE ENHANCE SUPPLEMENT [facility] Address: [address] [place] [address] MEDICARE PART A & B [facility] MEDICARE ENHANCE SUPPLEMENT [facility] Address: [address] [place] [address] MEDICARE PART A & B [facility] MEDICARE ENHANCE SUPPLEMENT MEDICARE PART A & B [facility] MEDICARE ENHANCE SUPPLEMENT [facility] Address: [facility] [address] [place] [address] Advance Directives For more information, please contact: [phone] (9AM - 5PM [facility], Saturday-Saturday) Documents on File Type Date Recorded Patient Immigration Law Specialist Expl anation Healthcare Proxy 03/28/2018 1:38 PM Care Teams Audio Visual Production Specialist Relationship Specialty Start Date End Date Ling Middleton NP [address] [place] [id number] PCP - General Family Medicine 07/05/21 Additional Source Comments The information contained in this document represents components of the legal health record. It is not the complete legal health record.[facility]
--- OUTSIDE RECORDS SUMMARY | 2025-05-25 19:18 | XMS_ITS | Data Portability ---
Author Organization [facility] Pain Managem ent, PAIN OFFICE Address [address] [facility] [address] [place] [address] Care Team Providers Care Community Manager Name Role Phone DANNY SHALA Referring Provider [...] booked for the same. She needs a freight delivery driver on the day of the procedure. [...] pain back to baseline.[facility], L5 and [...] patch 2015 016 miguel [id number], [address] [facility] [place], [address], 6 11:36:11 Celebrex 200 mg capsule 2015 016 [id number], [address] [place], [address], 6 08:56:14 Patient TargetsNo targets recorded. Patient Instructions Encounter Date Encounter Id Patient Instructions Last Modified By Organization Details Last Modified Time 08/16/2015 [id number] She was advised against bed rest lasting longer than four days and to continue activities as tolerated. [email or web address] Not available 08/16/2015 13:04:51 09/01/2015 [id number] She was advised against bed rest lasting longer than four days and to continue activities as tolerated. [email or web address] Not available 09/01/2015 15:28:37 09/07/2015 [id number] She was advised against bed rest lasting longer than four days and to continue activities as tolerated. tmanikantan Not available 09/08/2015 14:18:24 09/13/2015 [id number] She was advised against bed rest lasting longer than four days and to continue activities as tolerated. [email or web address] Not available 09/13/2015 14:59:45 09/23/2015 [id number] She was advised against bed rest lasting longer than four days and to continue activities as tolerated. [email or web address] Not available 09/27/2015 10:03:45 Reason for Referral None Reported. Results Created Date Observation Date Name Description Value Unit Range Abnormal Flag Note LastModifiedBy Organization Detail LastModifiedTime 08/22/19 16 08/22/2015 x-ray , tony lissette, 2 views No observ ation record ed. [facility] Diagn[facility] Imaging Dept [address] [place] [address], [address], 09/01/2015 15:28:37 Result Notes None recorded. Problems Name Problem SNOMED Code Status Onset Date Resolution Date Notes Provider Name and Address Organization Details Recorded Time Enthesopathy of hip region 33444774 Active Johnny henning MD [address] , [address], [facility] [place], [address], [place] [facility] 6 11:36:10 Lumbosacral spondylosis without myelopathy 54019437 Active Johnny henning MD [address] , [address], [facility] [place], [address], [place] [facility] 6 11:36:10 Lumbar post-laminecto my syndrome 097072316 Jillian henning MD [address] , [address], [facility] [place], [address], [place] [facility] 6 11:36:10 Lumbosacral radiculitis [id number] Jillian henning MD [address] , [address], [facility] [place], [address], [place] [facility] 6 11:36:10 Disorder of bursa of shoulder region 61762909 Jillian henning MD [address] , [address], [facility] [place], [address], [place] [facility] 6 11:36:11 Muscle pain 46326853 Jillian henning MD [address] , [address], [facility] [place], [address], [place] [facility] 6 11:36:10 Problem Notes None recorded. Procedures Surgical History Date Name Laterality Status Provider Name and Address Organization Details Recorded Time 09/13/19 16 Radiofrequency of Lumbar/Sacral medial branches supplying the facets under fluoroscopic guidance completed Johnny Montanez MD [address] , [address], [place], [address], [place] [facility] 09/14/2015 14:17:33 09/07/19 16 Lumbar median branch block under fluroscopic guidance completed Johnny Montanez MD [address] , [address], [place], [address], [place] [facility] 09/08/2015 14:23:25 08/16/19 16 Fluoroscopic Guided Lumbar Facet Steroid Injections of levels completed Johnny Montanez MD [address] , [address], [place], [address], [place] [facility] 08/16/2015 13:09:50 03/08/20 15 Fluoroscopic Guided Lumbar Facet Steroid Injections of levels completed Johnny Montanez MD [address] , [address], [place], [address], [place] [facility] 03/09/2015 09:22:44 [...] % 97 % 182/72 mm[Hg] Anisha Mendieta [facility] 6 10:23:34 Date Recorded Oxygen saturation Oxygen saturation in Arterial blood by Pulse oximetry Heart rate Systolic And Diastolic Provider Name and Address Organization Details Last Updated DateTime 09/01/2015 97 % 97 % 76 /min 118/58 mm[Hg] Anisha Mendieta [facility] Management 6 15:00:38 Date Recorded Oxygen saturation Oxygen saturation in Arterial blood by Pulse oximetry Heart rate Systolic And Diastolic Provider Name and Address Organization Details Last Updated DateTime 09/07/2015 99 % 99 % 65 /min 140/88 mm[Hg] Anisha Mendieta [facility] Pain Management 6 09:43:17 Date Recorded Oxygen saturation Oxygen saturation in Arterial blood by Pulse oximetry Heart rate Systolic And Diastolic Provider Name and Address Organization Details Last Updated DateTime 09/13/2015 98 % 98 % 67 /min 157/45 mm[Hg] Anisha Mendieta [facility] Pain Management 6 10:18:19 Date Recorded [...] Or Recreational Drugs Have You Used? No [id number] Information not available 05/13/2020 Education [address] [place] [address] Information no t available 03/01/2015 Live Alone Or With Others? Alone [facility] Information not available 03/01/2015 Marital Status [facility] Informatio n not available 03/01/2015 How Many Years Have You Smoked Tobacco? 20 [id number] Information not available 05/13/2020 Sex: Unknown Functional Status Question Answer Note LastModified by Organization D etails LastModified Time What is your level of alcohol consumption? Moderate Wine [id number] Information not available 05/13/2020 Are you currently employed? No [id number] Information not available 05/13/2020 Mental Status None [...] ICD10 Code Diagnosis IMO Codes Diagnosis Note [id number] Johnny Montanez MD PAIN OFFICE [address] [place] [address] 03/01/2015 10:09:29 03/02/2015 11:29:26 Lumbar post-laminectomy syndrome 605044344 Lumbosacra l radiculitis 79156107 Lumbosacra l spondylosis without myelopathy 61512370 Enthesopat hy of hip region 21954155 70696 Johnny Montanez MD PAIN OFFICE [address] [address] 03/08/2015 14:21:23 03/09/2015 09:25:14 Lumbosacral spondylosis without myelopathy 51256787 Enthesopat hy of hip region 47427732 Lumbosacra l radiculitis 67077516 Lumbar post-laminectomy syndrome 433877303 97897 Johnny Montanez MD [facility] PAIN OFFICE [address] [facility] [place] [address] 04/11/2015 14:50:34 04/12/2015 09:13:56 Lumbosacral spondylosis without myelopathy 79066819 Enthesopat hy of hip region 43247831 Lumbosacra l radiculitis 07278310 Lumbar post-laminectomy syndrome 550633627 99677 Johnny Montanez MD PAIN OFFICE [address] [facility] [place] [address] 08/16/2015 10:11:47 08/16/2015 14:46:00 Lumbosacral spondylosis without myelopathy 51319996 M47.817 Enthesopat hy of hip region 12234588 M76.9 Lumbosacra l radiculitis 03705327 M54.17 Lumbar post-laminectomy syndrome 754337229 M96.1 Disorder o f bursa of shoulder region 58690160 M25.812 67618 Johnny Montanez MD [facility] PAIN OFFICE [address] [facility] [place] [address] 09/01/2015 14:03:53 09/01/2015 15:37:11 Lumbosacral spondylosis without myelopathy 57230477 M47.817 Enthesopat hy of hip region 41491247 M76.9 Disorder o f bursa of shoulder region 89950228 M25.812 Lumbosacra l radiculitis 50979592 M54.17 Lumbar post-laminectomy syndrome 993298379 M96.1 50230 Johnny Montanez MD [facility] PAIN OFFICE [address] [facility] [place] [address] 09/07/2015 09:36:32 09/08/2015 14:24:03 Lumbosacral spondylosis without myelopathy 27159535 M47.817 Enthesopat hy of hip region 38697461 M70.61 Disorder o f bursa of shoulder region 47785461 M25.812 Lumbosacra l radiculitis 33402113 M54.17 Lumbar post-laminectomy syndrome 291073330 M96.1 60689 Johnny Montanez MD PAIN OFFICE [address] [place] [address] 09/13/2015 10:08:37 09/13/2015 15:13:45 Lumbosacral spondylosis without myelopathy 86769932 M47.817 Lumbar post-laminectomy syndrome 534512481 M96.1 Enthesopat hy of hip region 35187952 M70.61 Disorder o f bursa of shoulder region 87319478 M25.812 Lumbosacra l radiculitis 38149475 M54.17 94883 Johnny Montanez MD PAIN OFFICE [address] [place] [address] 09/23/2015 08:47:47 09/27/2015 11:36:33 Lumbosacral spondylosis without myelopathy 73508976 M47.817 Lumbar post-laminectomy syndrome 114517889 M96.1 Lumbosacra l radiculitis 68582357 M54.17 Muscle pain 81037622 M79 .1 Enthesopat hy of hip region 78827560 M70.61 Disorder o f bursa of shoulder region 91517198 M25.812 Health Concerns Section Related Observation LastModified by Organization Detai ls LastModified Time None Recorded Concern Status LastModified by Organization Details LastModified Time None Recorded Advance Directives Directive None Recorded Payers Insurance Date Sequence Insurance Name Policy Number Policy Blanco Covered Member ID Blanco Member ID Guarantor Name 04/11/2015 1 ROSITA BARRIOS - MEDICARE-[address] DETENTION [employer]ARD (MEDICARE) Brenda Wolf [id number] Brenda Wolf 09/01/2015 1 [place] B-[place] [facility] Brenda Wolf [id number] Brenda Wolf 09/27/2015 2 [facility] [...] her left shoulder. Johnny Montanez MD [address] [facility] , [address], [place], [address], [facility] 08/18/2015 09:24:14 09/01/2015 text/html She is here for a follow up after a left shoulder X-ray. 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 She states she has seen a PA at [facility] and she recommended a total knee [...] an issue presently. Johnny Montanez MD [address] [facility] [address] , [address], [place], [address], [facility] 09/02/2015 11:09:45 09/07/2015 text/html She is here for a trial of right median branch block under fluoroscopic guidance at L4, L5and S1 medial branches. Johnny Montanez MD [address] [facility] [facility] [address] , [address], [place], [address], [facility] 09/08/2015 15:45:44 09/13/2015 text/html She [...] with the RF. Johnny Montanez MD [address] [facility] [address] , [address], [place], [address], [facility] Pain Management 09/14/2015 14:17:41 09/23/2015 text/html She is here for a follow up. She states she is noticing pain in her muscles in the low back and she had difficulty sleeping due to pain and muscle spasms since the radiofrequency ablation. She has been applying ice. She has seen Tamika at [facility] and has started synvisc injections for [...] or bowel incontinence. Johnny Montanez MD [address] [facility] [address] , [address], [place], [address], [facility] Pain Management 10/03/2015 08:52:43 OBGyn Episode No OBEpisode recorded.
--- OUTSIDE RECORDS SUMMARY | 2025-05-25 19:18 | XMS_ITS | Encounter Summary ---
Author Organization [facility] Address [address] [place] [address] Phone Care Team Providers Care Bacteriologist Medical Name Role Phone Ne Cho MD Unavailable [phone] Ling Middleton NP Primary Care Provider + Encounter Details Date Type Department Care Team (Late st Contact Info) Description 12/05/2021 Transcribe Orders [facility] [address] [place] [address] Darrin Gómez MD, [place] [address] [id number] [email or web address] Social History Tobacco Use Types Packs/Day Years Used Date Smoking Tobacco: Former Cigarettes 0.8 10 1 958 - 6348 Smokeless Tobacco: Never Alcohol Use Standard Drinks/Week Comments Yes 10 (1 standard drink = 0.6 oz pu re alcohol) Education Answer Date Recorded Are you interested in help w ith more adult education (for example, completing high school, GED, job training, learning the [place] language, technical skills, or developing parenting skills)? [...] 1. Pt will explore exercise classes at [facility] once cleared by spinal surgeon. 2. Pt will engage in [employer] classes. documented as of this encounter Visit Diagnoses Not on filedocumented in this encounter Additional Health Concerns Assessment Noted Time PHQ-2 Depression Total Score: 0 03/12/20 18 1:28 PM EDT documented as of this encounter Care Teams Bacteriologist Medical Relationship Specialty Start Date End Date Ling Middleton NP [address] [place] [address] PCP - General Family Medicine 07/05/21 Ne Cho MD [address] [place] [address], [address] BRINDA Izquierdo [address] [email or web address] Insurance Assigned Provider 11/04/19 08/04/22 documented as of this encounter Additional Source Comments The information contained in this document represents components of the legal health record. It is not the complete legal health record.[facility]
--- OUTSIDE RECORDS SUMMARY | 2025-05-25 19:18 | XMS_ITS | Data Portability ---
Author Organization [place] - [facility], [facility] Address [address] [place] [address] Assessment Encounter Date Assessment Date Assessment LastModified [...] 96 % 143/79 mm[Hg] Yun Harrell MD [address] [place] [address], [address] [place], [place] - [facility] 8 16:35:36 Date Recorded Body temperature Heart rate Respiratory rate Systolic And Diastolic Provider Name and Address Organization Details Last Updated DateTime 12/02/2017 98.5 [degF] 80 /min 18 /min 125/59 mm[Hg] GUILHERME Cazares NP [address] [place] [address], [address] [place] [address] [facility] 8 10:16:59 Date Recorded Body temperature Heart rate Respiratory rate Systolic And Diastolic Provider Name and Address Organization Details Last Updated DateTime 12/04/2017 99.7 [degF] 68 /min 18 /min 103/57 mm[Hg] GUILHERME Cazares NP [address] [place] [address], [address] [place] [address] [facility] 8 09:45:06 Date Recorded Body temperature Heart rate Systolic And Diastolic Provider Name and Address Organization Details Last Updated DateTime 12/05/2017 97.8 [degF] 80 /min 147/78 mm[Hg] GUILHERME HALL NP [address] [place] [address], [address] 12/05/2017 10:18:56 Date Recorded Body weight Body temperature Heart rate Oxygen saturation Oxygen saturation in Arterial blood by Pulse oximetry Systolic And Diastolic Provider Name and Address Organization Details Last Updated DateTime 8 [address]697.5 2 g 97.8 [degF] 72 /min 96 % 96 % 99/41 mm[Hg] GUILHERME Cazares NP [address] [place] [address], [address] [place] [address] [facility] 8 09:38:58 Social History Question Answer Notes LastModified by Organizat ion Details LastModified Time Tobacco Smoking Status Former Smoker Yun Harrell MD [address] [place] [address], [address], [facility] 12/01/2017 16:36:41 Live Alone Or [...] ICD10 Code Diagnosis IMO Codes Diagnosis Note [id number] Yun Harrell MD [facility] [address] [place] [address] 12/01/2017 16:22:36 12/06/2017 14:56:06 Spinal stenosis of lumbar region 23771864 M48.061 s/p decompress ion, pain is controlled on tylenol, dilaudid, fentanyl patch, PT, OT, wound care Essential hypertension 66404795 I10 cont amlodipin, losartan Hyperlipidemia 50662714 E78.5 cont lipitor Gastroesop hageal reflux disease without esophagitis 216036878 K21.9 cont PPI Constipation 24390208 K5 9.00 colace, senna, miralax ,enema if needed Depressive disorder 3548 9007 F32.9 cont zoloft, trazodone 2803510 GUILHERME HALL NP [place] [address] [place] [address] 12/02/2017 10:05:52 12/04/2017 11:11:45 Spinal stenosis of lumbar region 74779008 M48.061 s/p decompress ion, pain is controlled on tylenol, dilaudid, fentanyl patch, cont with PT and OT here; incision is covered with steri stips and DPD Essential hypertension 11413021 I10 cont amlodipin, losartango od BP control Hyperlipidemia 02180143 E78.5 cont lipitor Gastroesop hageal reflux disease without esophagitis 160515298 K21.9 cont PPI Constipation 04496785 K5 9.00 good BM; cont current med regiment Depressive disorder 3548 9007 F32.9 cont zoloft, trazodone [id number] GUILHERME HALL NP [facility] [address] [place] [address] 12/04/2017 09:44:05 12/06/2017 14:28:20 Spinal stenosis of lumbar region 81720504 M48.061 s/p decompress ion, pain is controlled on tylenol, dilaudid, fentanyl patch, cont with PT and OT here; incision is covered with steri stips. Essential hypertension 81324545 I10 cont amlodipin, losartango od BP control Hyperlipidemia 07488529 E78.5 cont lipitor Gastroesop hageal reflux disease without esophagitis 853227984 K21.9 cont PPI Constipation 05342966 K5 9.00 good BM; cont current med regiment Depressive disorder 1014 9007 F32.9 cont zoloft, trazodone Leukocytosis 780026799 D 72.829 wbc 12; pt has a fever; will get UA [id number] GUILHERME HALL NP [facility] House [address] [place] [address] 12/05/2017 10:17:51 12/10/2017 16:37:53 Spinal stenosis of lumbar region 47883425 M48.061 s/p decompress ion, pain is controlled on tylenol, dilaudid, fentanyl patch, cont with PT and OT here; incision is covered with steri stips.pt jose be d/c home in a few days Leukocytosis 103110687 D 72.829 UA neg, afebrile; cbc pending from today Essential hypertension 67482213 I10 cont amlodipine , losartango od BP control Constipation 37502197 K5 9.00 good BM; cont current med regiment [id number] GUILHERME HALL NP [facility] [address] [place] [address] 12/06/2017 09:34:53 12/13/2017 12:45:01 Spinal stenosis of lumbar region 22317821 M48.061 s/p decompress ion, pain is controlled on tylenol, dilaudid, fentanyl patch,will give rx for fentalyn pathc #4 to go home withMass pat checkedf/u wit [place] in 8 weeks Essential hypertension 99856142 I10 cont amlodipin, losartan Hyperlipidemia 48576892 E78.5 cont lipitor Gastroesop hageal reflux disease without esophagitis 910766964 K21.9 cont PPI Constipation 01913268 K5 9.00 colace, senna, miralax ,enema if needed Depressive disorder 3546 9007 F32.9 cont zoloft, trazodone Health Concerns Section Related Observation LastModified by Organization Detai ls LastModified Time None Recorded Concern Status LastModified by Organization Details LastModified Time None Recorded Advance Directives Directive None Recorded Payers Insurance Date Sequence Insurance Name Policy Number Policy Blanco Covered Member ID Blanco Member ID Guarantor Name 12/04/2017 1 [place]: [employer] Brendakarina Wolf [id number] Brenda Andras 12/04/2017 2 [facility] - MEDICARE ENHANCE (INDEMNITY PLAN) Brenda Andyani [id number] Brenda Andras Notes Date Note Type Note Provider Name and Address Organization Details Recorded Time 12/01/2017 text/html ROS as noted in the HPI seen for admission- came from [facility] where pt had L3-S1 decompression.Pt tolerated procedure well, pain is controlled on current fentanyl patch and dilaudidPt came to for further care Yun Harrell MD [address] [place] [address], [address], [facility] - [facility] 12/01/2017 16:43:01 12/02/2017 text/html ROS as noted in the HPI seeing pt today for f/u; continues to work with therapy here, making progress. Pt came from [facility] where pt had L3-S1 decompression.Pt tolerated procedure well, pain is controlled on current fentanyl patch and dilaudid. GUILHERME HALL NP [address] [place] [address], [address], [facility] 12/02/2017 10:21:10 12/04/2017 text/html ROS as noted in the HPI seeing pt today for f/u; continues to work with therapy here, making progress. Pt came from [facility] where pt had L3-S1 decompression.Pt tolerated procedure well, pain is controlled on current fentanyl patch and dilaudid. GUILHERME HALL NP [address] [place] [address], [address], [facility] 12/04/2017 12:59:51 12/05/2017 text/html ROS as noted in the HPI seeing pt today for f/u; continues to work with therapy here, making progress.Ua was obtained yesterday; pt had elevated wbc Pt came from [facility] where pt had L3-S1 decompression.Pt tolerated procedure well, pain is controlled on current fentanyl patch and dilaudid. GUILHERME HALL NP [address] [place], [address], [facility] 12/07/2017 15:19:06 12/06/2017 text/html seeing pt today for d/c; pt has done well with therapy here, made progress, will be d/c home tomorrow. GUILHERME HALL NP [address] [place] [address], [address], [facility] 12/08/2017 11:15:02 OBGyn Episode No OBEpisode recorded.
--- OUTSIDE RECORDS SUMMARY | 2025-05-25 19:18 | XMS_ITS | Patient Health Record ---
Author Organization [facility] Address [address] [place] [address] Care Team Providers Care Hand Marker Name Role Phone Ling Middleton DNP Primary [...] a day; Duration: 30 day(s) Active Ipratropium [place] 0.06 % 2 sprays in e ach nostril Nasally Three times a day; Duration: 4 day(s) Active Amoxicillin 500 MG 1 capsule Orally NEEDED FOR DENTIST Active Calcium 500 MG 1 tablet Orally Once a day Active Tramadol & Dietary Manage Prod Active Vitamin D3 Ultra Potency 40271 UNIT 1 tablet Orally as directed Active [...] W/U Status Risk Notes Problem Rectal bleeding (96089014) Rectal bleeding (K62.5) Active confirmed Problem Gastro-esophagea l reflux disease without esophagitis (398847905) Gastro-esophage al reflux disease without esophagitis (K21.9) Active confirmed Problem Cough (34614187) Cough (R05) Active confirmed Problem Urinary incontinence (789725940) Urinary incontinence, unspecified type (R32) Active confirmed Plan Of Treatment Pending Test Test Name Order Date XR GI SERIES 07/14/2015 Insurance Providers Payer Name Payer Address Payer Phone Subscriber Number Group Number Insured Name Patient Relationship to Insured Coverage Start Date Coverage End Date MEDICARE OF [place] [address] [place] [address] [phone] [id number] KAY COLLINS Self - patient is the insured [employer] [address] BRINDA THAKKAR [id number] [phone] [id number] KAY COLLINS Self - patient is the insured Medical (General) History Medical History History ICD Code EGD/colonoscopy 01/03/2006. No evidence of Morse's esophagus. Hyperplastic colon polyp. Seasonal allergic rhinitis hypertension hypercholesterolemia scoliosis arthritis depression Surgical History Surgery Date(Month/Year) Vocal cord polyp 2006 Multiple back and neck surgeries rotator cuff surgery both knee replacement left
--- OUTSIDE RECORDS SUMMARY | 2025-05-25 19:18 | XMS_ITS | Patient Health Record ---
Author Organization [facility] Address [address] [place] [address] Care Team Providers Care It Consultant Name Role Phone Allison Ham Primary Care Provider Nyla Sharma Unavailable [phone] Allergies Allergen (clinical drug ingredient) Drug/Non Drug Allergy documented on EMR Reaction Allergy Type Onset Date Status Adhesive - Paper Tap e (uncoded) Unknown Allergy Active Grass Mix Pollens Allergen Ext Unknown Drug Allergy Active Cats Unknown Allergy Active Dust Mites Unknown Allergy Active Reason For Referral No Information Medications Medication SIG (Take, Route, Frequency, Duration) Notes Start Date End Date Status Nasal [place] Not-Taki ng Vitamin D 400 UNIT 1 [...] day; Duration: 30 day(s) 07/05/2020 Not-Taking Ipratropium [place] 0.06 % USE 1 SPRAY I N [...] primary osteoarthritis of the ankle and/or foot ([id number]) 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 Vital Signs Blood pressure diastolic 80 mm Hg 04/09/2025 Height 4 ft 11 in in 04/09/2025 Blood pressure systolic 140 mm Hg 04/09/2025 Weight 175 lbs 04/09/2025 BMI 35.34 kg/m2 04/09/2025 Encounters Encounter Location Date Provider Diagnosis [facility] [place] [address] [place] [address] 04/09/2025 Nyla Perica Pain in right toe(s) [...] X ray : Foot, right 3V 06/19/2019 [id number] NAIL, 6 OR MORE 03/07/2018 35193-Yxsbpdnn Plate 06/25/2011 62060- Debride <25 sq cm 07/11/2011 24256,[id number] TENDON SHEATH/LIGAMENT 1 08/19/2018 26482,[id number] TENDON SHEATH/LIGAMENT 0 03/07/2018 13545,[id number] TENDON SHEATH/LIGAMENT 1 58187,[id number] TENDON SHEATH/LIGAMENT 0 01/06/2020 10082,[id number] TENDON SHEATH/LIGAMENT 0 04/12/2020 27775- Unna Boot 06/19/2019 X ray : Ankle, right 3V 06/19/2019 Next Appt Details Provider Name:Nyla Cory wang, 06/18/2025 01:30:00 PM, [address] [facility], [place], [address], Insurance Providers Payer Name Payer Address Payer Phone Subscriber Number Group Number Insured Name Patient Relationship to Insured Coverage Start Date Coverage End Date Medicare National [facility] [employer] [address] [place] [address] [phone] [id number] Brenda Wolf Self - patient is the insured [address] BRINDA Fischer [address] [id number] Brenda Wolf Self - patient is the insured Medical (General) History Medical History History ICD Code anxiety Arthritis back, hip, knee pain hypertension osteoporosis measles joint implants/screws asthma CAD (Cholesterol) Depression A fib Surgical History Surgery Date(Month/Year) neck surgery 1989 back surgery 1992 knee replacement 2007 carpal tunnel surgery 05/2017 spinal stenosis surgery 11/26/2017 [place] History Reason Date(Month/[place] [facility] [place], [place]15/19- 1 08/19/18 [facility]- Spinal sten osis Sx 11/26/2017 right foot hurting diagnosed plantar 07/17/2017
--- OUTSIDE RECORDS SUMMARY | 2025-05-25 19:18 | XMS_ITS | Encounter Summary ---
Author Organization [facility] Address [address] [facility] [address] [place] [address] Phone Care Team Providers Care Infection Prevention Coordinator Name Role Phone Ne Cho MD Unavailable [phone] Unknown, Unknown Primary Care Provider Ling Blanc NP Primary Care Provider + Reason for Referral * Consultation (Elective) - Closed Specialty Diagnoses / Procedures Referred By Contac t Referred To Contact Pulmonary Disease Diagnoses Wheezing Ling Middleton NP Phone: tel: fax: [address] [address] Phone: tel: Referral ID Status Reason Start Date Expiration Date Visits Re quested Visits Authorized [id number] Closed 06/26/2021 06/26/2022 1 1 Encounter Details Date Type Department Care Team (Late st Contact Info) Description 06/26/2021 Transcribe Orders [facility] Pulmonary, Allergy and Critical Care Medicine [address] [place], [place] [id number] Ling Middleton NP [address] [place] [address] [phone] Wheezing (Primary Dx) Social History Tobacco Use Types Packs/Day Years Used Date Smoking Tobacco: Former Cigarettes 1 8 1966 Smokeless Tobacco: Never Education Answer Date Recorded Are you interested in help w ith more adult education (for example, completing high school, GED, job training, learning the [place] language, technical skills, or developing parenting skills)? [...] Associated Diagnoses Order Schedule Ambulatory referral to [facility] Pulmonology Outpatient Referral Routine Wheezing Ordered: 06/26/2021 [...] 1. Pt will explore exercise classes at [facility] once cleared by spinal surgeon. 2. Pt will engage in Weight Watchers classes. documented as of this encounter Visit Diagnoses Diagnosis Wheezing- Primary documented in this encounter Additional Health Concerns Assessment Noted Time PHQ-2 Depression Total Score: 0 03/12/20 18 1:28 PM EDT documented as of this encounter Care Teams Infection Prevention Coordinator Relationship Specialty Start Date End Date Unknown, Unknown, MD PCP - General 06/28/21 07/04/21 Ling Middleton NP [address] [place] [address] PCP - General Family Medicine 07/05/21 Ne Cho MD [address] [place] [address], [address] [place] [address] [email or web address] Insurance Assigned Provider 11/04/19 08/04/22 documented as of this encounter Additional Source Comments The information contained in this document represents components of the legal health record. It is not the complete legal health record.[facility]
== END 2025-05-25 15:15 | disposition home or self-care (01) ==
LOC: HO.ENCR 14:54
PROVIDERS: PCP Physician Assistant; Visit Provider Internal Medicine Endocrinology, Diabetes & Metabolism
DX: M81.0 Age-related osteoporosis without current pathological fracture (principal)

== ENCOUNTER → 2025-05-25 14:53 | Outpatient (BNVA) | payer MEDICARE, OTHER, SELFPAY | PROVIDERS: PCP Physician Assistant; Visit Provider Internal Medicine Endocrinology, Diabetes & Metabolism | DX: M81.0 Age-related osteoporosis without current pathological fracture (principal) | CPT/HCPCS: 96372; J3111 ==

== ENCOUNTER 2025-06-16 10:08 | Outpatient (AMB) | payer MEDICARE, OTHER, SELFPAY ==
--- NOTE | 2025-06-16 10:26 | MHC.OFFVIS ---
Vital Signs 06/16/25 10:29 Height 4 ft 10 in Weight 173 lb 1.006 oz BMI 36.2 BP 128/64 Blood Pressure Location Lt radial Position Sitting Pulse 68 Pulse Source Pulse Oximeter Pulse Oximetry (%) 97 Oxygen Delivery Method Room Air Intake Visit Reasons: Dyspnea Photo Engraver Required: No Accompanied by: Self / Same As Patient Allergies bee pollen Allergy (Unknown, Verified 06/16/25 10:30) Unknown house dust mite Allergy (Unknown, Verified 06/16/25 10:30) Unknown adhesive tape Adverse Reaction (Intermediate, Verified 06/16/25 10:30) Rash HPI Comments Details: The patient is here for pulmonary evaluation. The patient is an 89 year woman with a known history of asthma, atrial fibrillation with worsening respiratory symptoms. The patient states that she has been getting short of breath even with minimal activity. She feels very winded gasping for air at times. She has been taking Breo inhaler. She has not seen any significant improvement. She does use her rescue inhaler Ventolin, when she does use that when she does get relief. Although we did go through her technique and she was not taking it effectively. We did provide her a spacer and she was able to go to the technique using the spacer and she did a lot better taking the Ventolin and she actually felt that it worked even better for her. in the meantime we did also take it for 6 minute walk test. The patient was able to ambulate much better with a walker. She does have a walker at home but she does not always use it. Seems that when she does not use a walker she is out of balance and she has increased work of breathing. During her walk we did have a ear probe and also a finger probe checking her oxygen. She did desaturate down to 89% with activity. She did became dyspneic with a dyspnea score of water 10. she was able to rest in her oxygen did come back very quickly. We did talk about starting oxygen but the patient was not keen on the use the oxygen right now. Therefore will go ahead and check an overnight oximetry. But for now will continue to watch her and she should always use the walker to minimize work of breathing. In the meantime the patient will be switched over to a HFA formulation, Symbicort. Will provide her with a spacer. The patient will undergo PFTs and also a chest x-ray. On exam she indeed has underlying bibasilar rales. Also interestingly I did look at a CT scan of the abdomen that she had in the past demonstrating some mosaic pattern suggesting air trapping and also had a hiatal hernia. On further questioning she does have reflux disease and she does cough at nighttime when she lays flat. We did talk about the importance of sleeping elevated. She will do so and she will also make sure she does not need too late. Otherwise the patient is doing okay will start her on respiratory therapy wait for the overnight test and also wait for PFTs and chest x-ray. If she has any issues prior to the next visit she can always call for further recommendations. [facility], [facility] Medical History (Updated 06/16/25 @ 17:42 by Girffin Aguilar MD) Bilateral rales Hypoxia Asthma Dyspnea Paroxysmal A-fib Chronic pain syndrome Left ankle swelling Generalized anxiety disorder Insomnia Major depression, recurrent, chronic Arthritis High blood cholesterol COPD (chronic obstructive pulmonary disease) Urge incontinence Joint pain Chronic back pain HTN (hypertension) Bleeding hemorrhoid Back pain with history of spinal surgery Surgical History History of back surgery History of surgery Family History Father Thrombosis Mother Diabetes Heart rate problem Social History Household Members: None Housing: Assisted Living Facility Do you presently have visiting nurse or other home services: No Alcohol intake: current Alcohol intake frequency: holidays/special occasions only Alcohol type: wine Patient Tobacco Use Status: Former Tobacco user Tobacco use type: Cigarette Cigarettes Per Day: 15 Years Smoked: 10 e-Cigarette/Vaping Use: Never Used Second Hand Smoke Exposure: No service: No Current occupational status: retired Cognitive needs: No Hearing needs: Yes (hearing aids) Vision needs: No Review of Systems Const Denies weakness ENT Denies dizziness Card Denies chest pain and Reports dyspnea on exertion Resp Denies cough, Reports dyspnea on exertion and Reports wheezing GI Denies hematochezia and Denies change in stool character Musc Reports abnormal gait and Reports myalgias Skin/Breast Denies rash Neuro Reports abnormal gait, Denies dizziness and Denies weakness Endo Reports no additional complaints Mina/Lymph Reports no additional complaints Aller/Immun Reports wheezing Physical Exam Vital Signs: Last Vital Signs Pulse 68 06/16/25 10:29 BP 128/64 06/16/25 10:29 Pulse Ox 97 06/16/25 10:29 Oxygen Delivery Method Room Air 06/16/25 10:29 BMI result Body Mass Index 36.2 Const General: comfortable and no acute distress Orientation/consciousness: patient oriented x3 HEENT Head: Yes normal to inspection Neck Neck: Yes supple Chest Chest palpation & inspection: normal inspection of the chest Resp Effort & Inspection: normal respiratory effort Auscultation: rales and diminished lung sounds Cardio Heart sounds: S1 normal heart sound present and S2 normal heart sound present GI Palpation (GI): Soft to palpation Skin General skin exam: no rashes or lesions noted Neuro General: patient oriented x3 Extrem General: Yes normal to inspection, No no pedal edema and No calf tenderness Psych Appearance: grossly normal Assessment & Plan Assessment & Plan (1) Dyspnea: Code(s): R06.00 - Dyspnea, unspecified Category: Medical Qualifiers: Dyspnea type: dyspnea on exertion Qualified Code(s): R06.09 - Other forms of dyspnea (2) Asthma: Code(s): J45.909 - Unspecified asthma, uncomplicated Category: Medical Qualifiers: Asthma severity: moderate Asthma persistence: persistent Asthma complication type: uncomplicated Qualified Code(s): J45.40 - Moderate persistent asthma, uncomplicated (3) Hypoxia: Code(s): R09.02 - Hypoxemia Category: Medical (4) Bilateral rales: Code(s): R09.89 - Other specified symptoms and signs involving the circulatory and respiratory systems Category: Medical Plan stop Breo Start Symbicort with spacer consider LAMA JOSE as needed PFTs/CXR May benefit from Oxygen Overnight oximetry Needs to ambulate with her walker Orders: Orders PFT pulmonary function test Today J45.909 - Unspecified asthma, uncomplicated XR chest 2V Today R09.89 - Other specified symptoms and signs involving the circulatory and respiratory systems Medications: New budesonide-formoterol 160-4.5 mcg/actuation (Symbicort) 2 puffs inhalation BID 10.2 grams 11RF 30 days J44.89 - Other specified chronic obstructive pulmonary disease albuterol sulfate 90 mcg/actuation (Ventolin HFA) 2 puffs inhalation QID PRN 18 grams 11RF shortness of breath or wheezing 30 days Coding Level of Care Code New Pt Level 4 (68976) Diagnoses Dyspnea on exertion R06.09 Dyspnea type: dyspnea on exertion Moderate persistent asthma without complication J45.40 Asthma severity: moderate Asthma persistence: persistent Asthma complication type: uncomplicated Hypoxia R09.02 Bilateral rales R09.89 Time Spent (min) 45
[2025-06-16 10:29] VITALS: BP 128/64; PULSE 68; O2SAT 97; BMI 36.2
== END 2025-06-16 11:12 | disposition home or self-care (01) ==
PROVIDERS: PCP Physician Assistant; Referring Provider Physician Assistant; Visit Provider Hospitalist
DX: R06.09 Other forms of dyspnea (principal); J45.40 Moderate persistent asthma, uncomplicated; R09.02 Hypoxemia; R09.89 Other specified symptoms and signs involving the circulatory and respiratory systems
CPT/HCPCS: 99204

== ENCOUNTER 2025-06-16 10:08 | Outpatient (REF) | payer MEDICARE, OTHER, SELFPAY ==
--- OUTSIDE RECORDS SUMMARY | 2017-02-20 05:52 | XMS_ITS | Continuity of Care Document ---
Author Organization [facility] cine Address [address]nd [place] [address] Phone Care Team Providers Care Sports Information Director Name Role Phone Rodney Campos MD Unavailable [...] route every day 10 MG - Active losartan 100 mg tablet take 1 tablet by oral route every day 100 MG - Active Zoloft 50 mg tablet take 1 Tablet by oral route every day 50 MG - Active Calcium 600 600 mg (1,500 mg) tablet take 1 tablet by oral route every day 1 tablet - Active Vitamin D3 2,000 unit tablet take 1 by Oral route once 1 - Active trazodone 50 mg tablet take 1 tablet by oral route every day 50 MG - Active Procedures Procedure Date Inj_Facet_Lumbar [...] Location Reason(s) For Visit Diagnoses Date Provider [facility], [address] [place] [address], [place], [place], [id number], tel:[phone] [employer] [facility] No Information Beth Stevens. [address] [place] [address], [address] [place] [address], [place], [place], [id number], [place]. tel:[phone] [phone] [facility], [address] [place], [place] [address], [place], [place], [address], tel:[phone] [facility] Spondyls w/o myelopathy or radiculopathy, lumbosacr region Clayton Rodney. [address] [place] [address], [place], [place], [id number], [place]. tel:[phone] [facility], [address] [place] [address], [place], [place], [address], [place] tel:[phone] [facility] No Information [facility]. [address] [place] [address], [id number], [place]. tel:[phone] [facility], [address] [place] [address], [place], [place], [id number], [place] tel:[phone] [facility] Spondyls w/o myelopathy or radiculopathy, lumbosacr region Clayton Rodney. [address] [place] [address], [place], [place], [address], [place]. tel:[phone] 1804 [facility], [address] [place] [address], [place], [place], [id number], [place] tel:[phone] [facility] No Information [facility]. [address] [place] [address], [id number], [place]. tel:[phone] MD_Follow Up Level 4 [facility], [address] [place] [address], [place], [place], [id number], [place] tel:[phone] [facility] Spondylosis without myelopathy or radiculopathy, lumbosacral regionOther spondylosis with radiculopathy, lumbar region Yoli Justice. [address] [place] [address], [address], [place]. tel:[phone] 8069 [facility], [address] [place] [address], [place], [place], [address], [place] tel:[phone] [facility] Spondylosis w/o myelopathy or radiculopathy, thoracic region Clayton Rodney. [address] [place] [address], [place], [place], [address], [place]. tel:[phone] 1560 [facility], [address] [place] [address], [place], [place], [id number], [place] tel:[phone] [facility] No Information [facility]. [address] [place] [address], [id number], [place]. tel:[phone] 7070 [facility], [address] [place] [address], [place], [place], [address], [place] tel:[phone] [facility] Spondylosis w/o myelopathy or radiculopathy, cervical region Blanca Obregon. [address] [place] [address], [place], [place], [id number], [place]. tel:[phone] 2365 [facility], [address] [place] [address], [place], [place], [address], [place] tel:[phone] [facility] No Information [facility]. [address] [place] [address], [id number], [place]. tel:[phone] 2041 [facility], [address] [place] [address], [place], [place], [id number], [place] tel:[phone] [facility] Spondylosis w/o myelopathy or radiculopathy, cervical region Beth Stevens. [address] [place] [address], [place], [place], [address], [place]. tel:[phone] [facility], [address] [place] [address], [place], [place], [address], [place] tel:[phone] [facility] No Information [facility]. [address] [place] [address], [id number], [place]. tel:[phone] 7059 [facility], [address] [place] [address], [place], [place], [address], [place] tel:[phone] [facility] Cervical disc disorder w radiculopathy, unsp cervical region Blanca Obregon. [address] [place] [address], [place], [place], [id number], [place]. tel:[phone] 5966 [facility], [address] [place] [address], [place], [place], [address], [place] tel:[phone] [facility] No Information [facility]. [address] [place] [address], [id number], [place]. tel:[phone] MD_Follow Up Level 4 [facility], [address] [place], [place] [address], [place], [place], [address], [place] tel:[phone] [facility] Postlaminectomy syndrome, not elsewhere classified Yoli Reshma. [address] [place] [address], [address], [place]. tel:[phone] MD_Follow Up Level 4 [facility], [address] [place], [place] [address], [place], [place], [id number], [place] tel:[phone] [facility] Spondyls w/o myelopathy or radiculopathy, lumbosacr region Otilia Marin. [address] [place] [address], [id number], [place]. tel:[phone] [facility], [address] [place] [address], [place], [place], [id number], [place] tel:[phone] [facility] Cervical disc disorder w radiculopathy, unsp cervical region Beth Stevens. [address] [place] [address], [facility], [place], [place], [address], [place]. tel:[phone] 8274 [facility], [address] [place], [place] [address], [place], [place], [address], [place] tel:[phone] [facility] No Information [facility]. [address] [place] [address], [id number], [place]. tel:[phone] MD_Follow Up Level 4 [facility], [address] [place], [place] [address], [place], [place], [id number], [place] tel:[phone] [facility] Spondyls w/o myelopathy or radiculopathy, lumbosacr region Broderick Nye. [address] [place] [address], [id number], [place]. tel:[phone] [facility], [address] [place], [place] [address], [place], [place], [address], [place] tel:[phone] [facility] Cervical disc disorder w radiculopathy, unsp cervical region Beth Stevens. [address] [place] [address], [place], [place], [address], [place]. tel:[phone] 6724 [facility], [address] [place] [address], [place], [place], [id number], [place] tel:[phone] [facility] No Information [facility]. [address] [place] [address], [id number], [place]. tel:[phone] MD_Follow Up Level 4 [facility], [address] [place] [address], [place], [place], [id number], [place] tel:[phone] [facility] No Information Yoli Justice. [address] [place] [address], [address], [place]. tel:[phone] 2601 [facility], [address] [place] [address], [place], [place], [address], [place] tel:[phone] [facility] No Information Beth Stevens. [address] [place] [address], [place], [place], [address], [place]. tel:[phone] [facility], [address] [place] [address], [place], [place], [address], [place] tel:[phone] [facility] No Information [facility]. [address] [place] [address], [id number], [place]. tel:[phone] MD_Follow Up Level 4 [facility], [address] [place] [address], [place], [place], [id number], [place] tel:[phone] [facility] Spondylosis without myelopathy or radiculopathy, lumbosacral region Beth Stevens. [address] [place] [address], [place], [place], [address], [place]. tel:[phone] 5289 [facility], [address] [place] [address], [place], [place], [id number], [place] tel:[phone] [facility] Postlaminectomy syndrome, not elsewhere classified Blanca Obregon. [address] [place] [address], [place], [place], [address], [place]. tel:[phone] [facility], [address] [place] [address], [place], [place], [address], [place] tel:[phone] [facility] No Information [facility]. [address] [place] [address], [id number], [place]. tel:[phone] MD_Follow Up Level 4 [facility], [address] [place] [address], [place], [place], [address]38, [place] tel:[phone] [facility] Other spondylosis with radiculopathy, lumbar region Otilia Marin. [address] [place] [address], [id number], [place]. tel:[phone] MD_Follow Up Level 4 [facility], [address] [place] [address], [place], [place], [address], [place] tel:[phone] [facility] Other spondylosis with radiculopathy, lumbar region Beléna Tania. [address] [place] [address], [id number], [place]. tel:[phone] [facility], [address] [place] [address], [place], [place], [address]37, [place] tel:[phone] [facility] No Information [facility]hian LeesVivian. [address] [place] [address], [address], [place]. tel:[phone] [facility], [address] [place] [address], [place], [place], [id number], [place] tel:[phone] [facility] No Information [facility]. [address] [place] [address], [id number], [place]. tel:[phone] 1860 [facility], [address] [place] [address], [place], [place], [address]893, [place] tel:[phone] [facility] No Information Beth Stevens. [address] [place] [address], [place], [place], [address], [place]. tel:[phone] 7582 [facility], [address] [place] [address], [place], [place], [address]3718, [place] tel:[phone] [facility] No Information Otilia Marin. [address] [place] [address], [id number], [place]. tel:[phone] 7461 [facility], [address] [place] [address], [place], [place], [id number], tel:[phone] [facility] No Information Arsalanrichardtammy Praveen. [address] [place] [address], [address] [place] [address], [place], [place], [address], [place]. tel:[phone] MD_Follow Up Level 5 [facility], [address] [place] [address], [place], [place], [id number], [place] tel:[phone] [facility] No Information Otilia Marin. [address] [place] [address], [id number], . tel:[phone] Behavioral (Psych) 60 mins [facility], [address] [place] [address], [place], [place], [address]240[address]27, [place] tel:[phone] [facility] Spondylosis without myelopathy or radiculopathy, lumbosacral region Hermelinda Peña. [address] [place] [address], [id number], [place]. tel:[phone] [facility], [address] [place] [address], [place], [place], [address]79, [place] tel:[phone] [facility] No Information [facility]. [address] [place] [address], [id number], [place]. tel:[phone] [facility], [address] [place] [address], [place], [place], [address]35[address]398, [place] tel:[phone] [facility] No Information Beth Stevens. [address] [place] [address], [address] [place] [address], [place], [place], [address]742665, [place]. tel:[phone] 7998 [facility], [address] [place] [address], [place], [place], [address]89[address]34, [place] tel:[phone] [facility] No Information Clayton Rodney. [address] [place] [address], [place], [place], [address]7801, [place]. tel:[phone] [facility], [address] [place] [address], [place], [place], 813867963, [place] tel:[phone] [facility] No Information [facility]. [address] [place] [address], [id number], [place]. tel:[phone] 8675 [facility], [address] [place] [address], [place], [place], [address]459[address]24, [place] tel:[phone] [facility] No Information Clayton Rodney. [address] [place] [address], [place], [place], [address]491001, [place]. tel:[phone] MD_Follow Up Level 4 [facility], [address] [place] [address], [place], [place], [id number], [place] tel:[phone] [facility] Spondylosis without myelopathy or radiculopathy, lumbosacral region Clayton Rodney. [address] [place] [address], [place], [place], 7787[address]19, [place]. tel:[phone] 9977 [facility], [address] [place] [address], [place], [place], [id number], [place] tel:[phone] [facility] No Information Clayton Rodney. [address] [place] [address], [place], [place], [address]89, [place]. tel:[phone] [facility], [address] [place] [address], [place], [place], [address]18[address]462, [place] tel:[phone] [facility] No Information [facility]. [address] [place] [address], [id number], [place]. tel:[phone] 2934 [facility], [address] [place] [address], [place], [place], [address]16443840, [place] tel:[phone] [facility] No Information Clayton Rodney. [address] [place] [address], [id number], [place]. tel:[phone] [facility], [address] [place], [place] [address], [place], [place], [id number], [place] tel:[phone] [facility] No Information [facility]. [address] [place] [address], [id number], [place]. tel:[phone] 3863 [facility], [address] [place] [address], [place], [place], [address]1095051, [place] tel:[phone] [facility] No Information Beth Stevens. [address] [place] [address], [address] [place] [address], [place], [place], [address]258075, [place]. tel:[phone] [facility], [address] [place] [address], [place], [place], [address]8414, [place] tel:[phone] [facility] No Information [facility]. [address] [place] [address], [id number], [place]. tel:[phone] MD_Follow Up Level 3 [facility], [address] [place] [address], [place], [place], [id number], [place] tel:[phone] [facility] Lumbosacral spondylosis without myelopathy Beth Stevens. [address] [place] [address], [place], [place], [address]1282180, [place]. tel:[phone] MD_Follow Up Level 3 [facility], [address] [place] [address], [place], [place], [id number], [place] tel:[phone] [facility] Knee Pain (chief complaint) Enthesopathy of knee, unspecified Roque Garcia. [address] [place] [address], [address], [place]. tel:[phone] 0344 [facility], [address] [place] [address], [place], [place], 796502172, [place] tel:[phone] [facility] No Information Otoniel Wang. [address] [place] [address], [address] [place] [address], [place], [place], [id number], [place]. tel:[phone] 5835 [facility], [address] [place] [address], [place], [place], 337033736, [place] tel:[phone] [facility] No Information [facility]. [address] [place] [address], [id number], [place]. tel:[phone] MD_Follow Up Level 3 [facility], [address] [place] [address], [place], [place], [id number], [place] tel:[phone] [facility] Opioid type dependence, continuous useLumbosacral spondylosis without myelopathyComplete rupture of rotator cuff Claytonsamson Stevens. [address] [place] [address], [place], [place], 113[address]336, [place]. tel:[phone] 9931 [facility], [address] [place] [address], [place], [place], [address]95146071, [place] tel:[phone] [facility] No Information Beth Stevens. [address] [place] [address], [place], [place], [address]79, [place]. tel:[phone] [facility], [address] [place] [address], [place], [place], [address]45[address]254, [place] tel:[phone] [facility] No Information [facility]. [address] [place] [address], [id number], [place]. tel:[phone] MD_Follow Up Level 4 [facility], [address] [place] [address], [place], [place], 310716943, [place] tel:[phone] [facility] back pain (chief complaint)s houlder pain (chief complaint) No Information Del Avalos. [address] [place] [address], [id number], [place]. tel:[phone] MD_Follow Up Level 4 [facility], [address] [place] [address], [place], [place], [address]25[address]291, [place] tel:[phone] [facility] shoulder pain (chief complaint) Osteoarthrosis, localized, primary, involving shoulder regionOther specified disorders of bursae and tendons in shoulder regionMyalgia and myositis, unspecifiedComplete rupture of rotator cuff Babatunde Jauregui. [address] [place] [address], [address], [place]. tel:[phone] NP_Office Visit Level 4 [facility], [address] [place] [address], [place], [place], 151123655, [place] tel:[phone] [facility] shoulder pain (chief complaint) Lumbosacral spondylosis without myelopathyOther specified disorders of bursae and tendons in shoulder regionBicipital tenosynovitisMyalgia and myositis, unspecified Babatunde Jauregui. [address] [place], [address], . tel:[phone] MD_Follow Up Level 4 [facility], [address] [place] [address], [place], [place], 357099869, [place] tel:[phone] [facility] back pain (chief complaint)s houlder pain (chief complaint) No Information Mathis Angélica Sheri Avalos. [address] [place], [place], [id number], [place]. tel:[phone] 6895 [facility], [address] [place] [address], [place], [place], 460960480, [place] tel:[phone] [facility] No Information Beth Stevens. [address] [place] [address], [place], [place], [id number], [place]. tel:[phone] [facility], [address] [place] [address], [place], [place], 212187627, [place] tel:[phone] [facility] No Information [facility]. [address] [place] [address], [id number], [place]. tel:[phone] 1184 [facility], [address] [place] [address], [place], [place], 133156483, [place] tel:[phone] [facility] No Information Christianne Grimes. [address] [facility], [address], [place], [place], [id number], [place]. tel:[phone] [facility], [address] [place] [address], [place], [place], 737381582, [place] tel:[phone] [facility] No Information Beth Stevens. [address] [place] [address], [address] [place] [address], [place], [place], 934146111, [place]. tel:[phone] [facility], [address] [place], [place] [address], [place], [place], [address]775845, [place] tel:[phone] [facility] No Information [facility]. [address] [place] [address], [id number], . tel:[phone] MD_Follow Up Level 5 [facility], [address] [place], [place] [address], [place], [place], [address]3851604, [place] tel:[phone] [facility] back pain (chief complaint) No Information Yoli Reshma. [address] [place] [address], [address], . tel:[phone] 5058 [facility], [address] [place] [address], [place], [place], [address]2321058, tel:[phone] [facility] back pain (chief complaint) Adjustment disorder with mixed anxiety and depressed mood Shiva Samano. [address] [place] [address], [address], [place]. tel:[phone] [facility], [address] [place], [place] [address], [place], [place], [address]37[address]131, [place] tel:[phone] [facility] No Information Beth Stevens. [address] [place] [address], [facility], [place], [place], [address]26, [place]. tel:[phone] [facility], [address] [place], [place] [address], [place], [place], [address]3787, [place] tel:[phone] [facility] No Information [facility]. [address] [place] [address], [id number], [place]. tel:[phone] NP_Office Visit Level 5 [facility], [address] [place], [place] [address], [place], [place], [address]5589, [place] tel:[phone] [facility] arm pain (chief complaint) Hypertension, UnspecifiedOpioid type dependence, continuous useTherapeutic Drug MonitoringSciatica Due To Displacement Of Lumbar DiscPostlaminectomy syndrome of thoracic regionLumbosacral spondylosis without myelopathySpinal Stenosis, Lumbar Region, With Neurogenic Claudication Robert Rodríguez. [address] [place] [address], [address] Floor, [place], [place], [id number], [place]. tel:[phone] Family History Family Member Type Diagnosis Age At Onset Problem (finding) Family history of Subst ance Abuse Problem (finding) Family history of Heart Disease Problem (finding) Family history of High Blood Pressure Problem (finding) Family history of depre ssion Problem (finding) Family history of alcoh olism Problem (finding) Family history of Diabe sofia mellitus Payers Payer name Insurance type Covered alliance party ID Authoriza tion(s) Medicare [id number] [employer] [place] M[employer] Supplement Plan [id number] Social History Type Description Quantity Date Captured [...]
--- OUTSIDE RECORDS SUMMARY | 2017-02-20 05:52 | XMS_ITS | Continuity of Care Document ---
Author Organization [employer] [facility] cine Address [address] [facility] 2nd [place] [address] Phone Care Team Providers Care Supervisor Melt [facility] Name Role Phone Rodney Campos MD Unavailable [...] No Burn, Fall, Wrong Site, Side, Or Meir ent, Procedure Patient W/O Pre Operartive IV [...] Location Reason(s) For Visit Diagnoses Date Provider [facility], [address] [place] [address], [place], [place], [id number], tel:[phone] [facility] No Information Beth Stevens. [address] [place] [address], [address] [place] [address], [place], [place], [id number], [place]. tel:[phone] [facility], [address] [place], [place] [address], [place], [place], [id number], tel:[phone] [facility] Spondyls w/o myelopathy or radiculopathy, lumbosacr region [place] Rodney. [address] [place] [address], [place], [place], [id number], [place]. tel:[phone] [facility], [address] [place] [address], [place], [place], [id number], [place] tel:[phone] [facility] No Information [facility]. [address] [place] [address], [id number], [place]. tel:[phone] [facility], [address] [place] [address], [place], [place], [id number], [place] tel:[phone] [facility] Spondyls w/o myelopathy or radiculopathy, lumbosacr region [place] Rodney. [address] [place] [address], [place], [place], [id number], [place]. tel:[phone] 1980 [facility], [address] [place] [address], [place], [place], [id number], [place] tel:[phone] [facility] No Information Surgery [facility]. [address] [place] [address], [id number], [place]. tel:[phone] MD_Follow Up Level 4 [facility], [address] [place] [address], [place], [place], [id number], [place] tel:[phone] [facility] Spondylosis without myelopathy or radiculopathy, lumbosacral regionOther spondylosis with radiculopathy, lumbar region Yoli Justice. [address] [place] [address], [address], [place]. tel:[phone] [facility], [address] [place] [address], [place], [place], [id number], [place] tel:[phone] [facility] Spondylosis w/o myelopathy or radiculopathy, thoracic region [place] Rodney. [address] [place] [address], [place], [place], [id number], [place]. tel:[phone] [facility], [address] [place] [address], [place], [place], [address]73, [place] tel:[phone] [facility] No Information [facility]. [address] [place] [address], [id number], [place]. tel:[phone] [facility], [address] [place] [address], [place], [place], [id number], [place] tel:[phone] [facility] Spondylosis w/o myelopathy or radiculopathy, cervical region Blanca Obregon. [address] [place] [address], [place], [place], [id number], [place]. tel:[phone] [facility], [address] [place] [address], [place], [place], [id number], [place] tel:[phone] [facility] No Information [facility]. [address] [place] [address], [id number], [place]. tel:[phone] [facility], [address] [place] [address], [place], [place], [address]58[address]44, [place] tel:[phone] [facility] Spondylosis w/o myelopathy or radiculopathy, cervical region Beth Stevens. [address] [place] [address], [place], [place], [id number], [place]. tel:[phone] [facility], [address] [place] [address], [place], [place], [id number], [place] tel:[phone] [facility] No Information [facility]. [address] [place] [address], [id number], [place]. tel:[phone] 4110 [facility], [address] [place] [address], [place], [place], [id number], [place] tel:[phone] [facility] Cervical disc disorder w radiculopathy, unsp cervical region Blanca Obregon. [address] [place] [address], [place], [place], [id number], [place]. tel:[phone] [facility], [address] [place] [address], [place], [place], 513343684, [place] tel:[phone] [facility] No Information [facility]. [address] [place] [address], [id number], [place]. tel:[phone] MD_Follow Up Level 4 [facility], [address] [place], [place] [address], [place], [place], [id number], [place] tel:[phone] [facility] Postlaminectomy syndrome, not elsewhere classified Yoli Reshma. [address] [place] [address], [address], [place]. tel:[phone] MD_Follow Up Level 4 [facility], [address] [place], [place] [address], [place], [place], [address], [place] tel:[phone] [facility] Spondyls w/o myelopathy or radiculopathy, lumbosacr region Otilia Marin. [address] [place] [address], [id number], [place]. tel:[phone] [facility], [address] [place] [address], [place], [place], [address]26[address]31, [place] tel:[phone] [facility] Cervical disc disorder w radiculopathy, unsp cervical region Beth Stevens. [address] [place] [address], [facility] Floor, [place], [place], [id number], [place]. tel:[phone] [facility], [address] [place], [place] [address], [place], [place], [id number], [place] tel:[phone] [facility] No Information [facility]. [address] [place] [address], [id number], [place]. 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 [address] [place] [address], [id number], [place]. tel:[phone] [facility], [address] [place], [place] [address], [place], [place], [id number], [place] tel:[phone] [facility] Cervical disc disorder w radiculopathy, unsp cervical region Beth Stevens. [address] [place] [address], [place], [place], [id number], [place]. tel:[phone] [facility], [address] [place] [address], [place], [place], [id number], [place] tel:[phone] [facility] No Information [facility]. [address] [place] [address], [id number], [place]. tel:[phone] MD_Follow Up Level 4 [facility], [address] [place] [address], [place], [place], [id number], [place] tel:[phone] [facility] No Information Yoli Justice. [address] [place] [address], [address], [place]. tel:[phone] 1972 [facility], [address] [place] [address], [place], [place], [id number], [place] tel:[phone] [facility] No Information Beth Stevens. [address] [place] [address], [place], [place], [id number], [place]. tel:[phone] [facility], [address] [place] [address], [place], [place], [id number], [place] tel:[phone] [facility] No Information [facility]. [address] [place] [address], [id number], [place]. tel:[phone] MD_Follow Up Level 4 [facility], [address] [place] [address], [place], [place], [id number], [place] tel:[phone] [facility] Spondylosis without myelopathy or radiculopathy, lumbosacral region Beth Stevens. [address] [place] [address], [place], [place], [id number], [place]. tel:[phone] [facility], [address] [place] [address], [place], [place], [id number], [place] tel:[phone] [facility] Postlaminectomy syndrome, not elsewhere classified Blanca Obregon. [address] [place] [address], [place], [place], [id number], [place]. tel:[phone] [facility], [address] [place] [address], [place], [place], 350279[address], [place] tel:[phone] [facility] No Information [facility]. [address] [place] [address], [id number], [place]. tel:[phone] MD_Follow Up Level 4 [facility], [address] [place] [address], [place], [place], [id number], [place] tel:[phone] [facility] Other spondylosis with radiculopathy, lumbar region Otilia Marin. [address] [place] [address], [id number], [place]. tel:[phone] MD_Follow Up Level 4 [facility], [address] [place] [address], [place], [place], [id number], [place] tel:[phone] [facility] Other spondylosis with radiculopathy, lumbar region Beléna Tania. [address] [place] [address], [id number], [place]. tel:[phone] [facility], [address] [place] [address], [place], [place], 577640337, [place] tel:[phone] [facility] No Information North Starcristhian LeesVivian. [address] [place] [address], [address], [place]. tel:[phone] [facility], [address] [place] [address], [place], [place], 802753035, [place] tel:[phone] [facility] No Information [facility]. [address] [place] [address], [id number], [place]. tel:[phone] 5864 [facility], [address] [place] [address], [place], [place], 545128952, [place] tel:[phone] [facility] No Information Beth Stevens. [address] [place] [address], [place], [place], [id number], [place]. tel:[phone] [facility], [address] [place] [address], [place], [place], [id number], [place] tel:[phone] [facility] No Information Otilia Marin. [address] [place] [address], [id number], [place]. tel:[phone] [facility], [address] [place] [address], [place], [place], [id number], tel:[phone] [facility] No Information Arsalanrichardtammy Praveen. [address] [place] [address], [address] [place] [address], [place], [place], [id number], [place]. tel:[phone] MD_Follow Up Level 5 [facility], [address] [place] [address], [place], [place], [id number], [place] tel:[phone] [facility] No Information Otilia Marin. [address] [place] [address], [id number], . tel:[phone] Behavioral (Psych) 60 mins [facility], [address] [place] [address], [place], [place], [id number], [place] tel:[phone] [facility] Spondylosis without myelopathy or radiculopathy, lumbosacral region Hermelinda Peña. [address] [place] [address], [id number], [place]. tel:[phone] [facility], [address] [place] [address], [place], [place], [id number], [place] tel:[phone] [facility] No Information [facility]. [address] [place] [address], [id number], [place]. tel:[phone] [facility], [address] [place] [address], [place], [place], [id number], [place] tel:[phone] [facility] No Information Beth Stevens. [address] [place] [address], [address] [place] [address], [place], [place], [id number], [place]. tel:[phone] [facility], [address] [place] [address], [place], [place], [id number], [place] tel:[phone] [facility] No Information [place] Rodney. [address] [place] [address], [place], [place], [id number], [place]. tel:[phone] [facility], [address] [place] [address], [place], [place], [id number], [place] tel:[phone] [facility] No Information [facility]. [address] [place] [address], [id number], [place]. tel:[phone] [facility], [address] [place] [address], [place], [place], [id number], [place] tel:[phone] [facility] No Information [place] Rodney. [address] [place] [address], [place], [place], [id number], [place]. tel:[phone] MD_Follow Up Level 4 [facility], [address] [place] [address], [place], [place], [id number], [place] tel:[phone] [facility] Spondylosis without myelopathy or radiculopathy, lumbosacral region [place] Rodney. [address] [place] [address], [place], [place], 278893962, [place]. tel:[phone] [facility], [address] [place] [address], [place], [place], 729688513, [place] tel:[phone] [facility] No Information [place] Augustine Rodney. [address] [place] [address], [place], [place], [id number], [place]. tel:[phone] [facility], [address] [place] [address], [place], [place], 942073937, [place] tel:[phone] [facility] No Information [facility]. [address] [place] [address], [id number], [place]. tel:[phone] [facility], [address] [place] [address], [place], [place], [id number], [place] tel:[phone] [facility] No Information Saint Augustine Rodney. [address] [place] [address], [id number], [place]. tel:[phone] [facility], [address] [place], [place] [address], [place], [place], [address]3963374, [place] tel:[phone] [facility] No Information [facility]. [address] [place] [address], [id number], [place]. tel:[phone] [facility], [address] [place] [address], [place], [place], [id number], [place] tel:[phone] [facility] No Information Beth Stevens. [address] [place] [address], [address] [place] [address], [place], [place], [id number], [place]. tel:[phone] 3063 [facility], [address] [place] [address], [place], [place], 176509335, [place] tel:[phone] [facility] No Information [facility]. [address] [place] [address], [id number], [place]. tel:[phone] MD_Follow Up Level 3 [facility], [address] [place] [address], [place], [place], 215859005, [place] tel:[phone] [facility] Lumbosacral spondylosis without myelopathy Beth Stevens. [address] [place] [address], [place], [place], 380820231, [place]. tel:[phone] MD_Follow Up Level 3 [facility], [address] [place] [address], [place], [place], [id number], [place] tel:[phone] [facility] Knee Pain (chief complaint) Enthesopathy of knee, unspecified Roque Garcia. [address] [place] [address], [address], [place]. tel:[phone] [facility], [address] [place] [address], [place], [place], 678943952, [place] tel:[phone] [facility] No Information Otoneil Wang. [address] [place] [address], [address] [place] [address], [place], [place], 832705435, [place]. tel:[phone] [facility], [address] [place] [address], [place], [place], [id number], [place] tel:[phone] [facility] No Information [facility]. [address] [place] [address], [id number], [place]. tel:[phone] MD_Follow Up Level 3 [facility], [address] [place] [address], [place], [place], 553362345, [place] tel:[phone] [facility] Opioid type dependence, continuous useLumbosacral spondylosis without myelopathyComplete rupture of rotator cuff Saint Augustinesamson Stevens. [address] [place] [address], [place], [place], 982919226, [place]. tel:[phone] [facility], [address] [place] [address], [place], [place], 392264592, [place] tel:[phone] [facility] No Information Beth Stevens. [address] [place] [address], [place], [place], 327493226, [place]. tel:[phone] [facility], [address] [place] [address], [place], [place], 189331127, [place] tel:[phone] [facility] No Information [facility]. [address] [place] [address], [id number], [place]. tel:[phone] MD_Follow Up Level 4 [facility], [address] [place] [address], [place], [place], [id number], [place] tel:[phone] [facility] back pain (chief complaint)s houlder pain (chief complaint) No Information Del Avalos. [address] [place] [address], [id number], [place]. tel:[phone] MD_Follow Up Level 4 [facility], [address] [place] [address], [place], [place], [id number], [place] tel:[phone] [facility] shoulder pain (chief complaint) Osteoarthrosis, localized, primary, involving shoulder regionOther specified disorders of bursae and tendons in shoulder regionMyalgia and myositis, unspecifiedComplete rupture of rotator cuff Babatunde Jauregui. [address] [place] [address], [address], [place]. tel:[phone] NP_Office Visit Level 4 [facility], [address] [place] [address], [place], [place], [id number], [place] tel:[phone] [facility] shoulder pain (chief complaint) Lumbosacral spondylosis without myelopathyOther specified disorders of bursae and tendons in shoulder regionBicipital tenosynovitisMyalgia and myositis, unspecified Babatunde Jauregui. [address] [place], [address], . tel:[phone] MD_Follow Up Level 4 [facility], [address] [place] [address], [place], [place], [id number], [place] tel:[phone] [facility] back pain (chief complaint)s houlder pain (chief complaint) No Information Mathis Angélica Sheri Avalos. [address] [place], [place], [address], [place]. tel:[phone] 6549 [facility], [address] [place] [address], [place], [place], [id number], [place] tel:[phone] [facility] No Information Beth Stevens. [address] [place] [address], [place], [place], 489660243, [place]. tel:[phone] [facility], [address] [place] [address], [place], [place], [id number], [place] tel:[phone] [facility] No Information [facility]. [address] [place] [address], [id number], [place]. tel:[phone] [facility], [address] [place] [address], [place], [place], [id number], [place] tel:[phone] [facility] No Information Christianne Grimes. [address] [facility], [address], [place], [place], [id number], [place]. tel:[phone] [facility], [address] [place] [address], [place], [place], 716804633, [place] tel:[phone] [facility] No Information Beth Stevens. [address] [place] [address], [address] [place] [address], [place], [place], 879661044, [place]. tel:[phone] [facility], [address] [place], [place] [address], [place], [place], [id number], [place] tel:[phone] [facility] No Information [facility]. [address] [place] [address], [id number], . tel:[phone] MD_Follow Up Level 5 [facility], [address] [place], [place] [address], [place], [place], [id number], [place] tel:[phone] [facility] back pain (chief complaint) No Information Yoli Resmha. [address] [place] [address], [address], . tel:[phone] [facility], [address] [place] [address], [place], [place], [id number], tel:[phone] [facility] back pain (chief complaint) Adjustment disorder with mixed anxiety and depressed mood Shiva Samano. [address] [place] [address], [address], [place]. tel:[phone] 2879 [facility], [address] [place], [place] [address], [place], [place], [address]505315, [place] tel:[phone] [facility] No Information Beth Stevens. [address] [place] [address], [facility] Floor, [place], [place], [id number], [place]. tel:[phone] [facility], [address] [place], [place] [address], [place], [place], 765725834, [place] tel:[phone] [facility] No Information [facility]. [address] [place] [address], [id number], [place]. tel:[phone] NP_Office Visit Level 5 [facility], [address] [place], [place] [address], [place], [place], 302463065, [place] tel:[phone] [facility] arm pain (chief complaint) Hypertension, UnspecifiedOpioid type dependence, continuous useTherapeutic Drug MonitoringSciatica Due To Displacement Of Lumbar DiscPostlaminectomy syndrome of thoracic regionLumbosacral spondylosis without myelopathySpinal Stenosis, Lumbar Region, With Neurogenic Claudication Robert Rodríguez. [address] [place] [address], [address] Floor, [place], [place], [id number], [place]. tel:[phone] Family History Family Member Type Diagnosis Age At Onset Problem (finding) Family history of Subst ance Abuse Problem (finding) Family history of Heart Disease Problem (finding) Family history of High Blood Pressure Problem (finding) Family history of depre ssion Problem (finding) Family history of alcoh olism Problem (finding) Family history of Diabe sofia mellitus Payers Payer name Insurance type Covered green party ID Authoriza tion(s) Medicare [id number] [place] MCR Supplement Plan [id number] Social History Type Description Quantity Date Captured [...]
--- OUTSIDE RECORDS SUMMARY | 2017-02-20 05:52 | XMS_ITS | Continuity of Care Document ---
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 [address] [place] [address], [address] [place] [address], [place], [place], [id number], [place]. tel:[phone] [facility], [address] [place], [place] [address], [place], [place], [id number], tel:[phone] [facility] Spondyls w/o myelopathy or radiculopathy, lumbosacr region Parksley Rodney. [address] [place] [address], [place], [place], [id number], [place]. tel:[phone] [facility], [address] [place] [address], [place], [place], [id number], [place] tel:[phone] [facility] No Information [facility]. [address] [place] [address], [id number], [place]. tel:[phone] [facility], [address] [place] [address], [place], [place], [address], [place] tel:[phone] [facility] Spondyls w/o myelopathy or radiculopathy, lumbosacr region Parksley Rodney. [address] [place] [address], [place], [place], [id number], [place]. tel:[phone] [facility], [address] [place] [address], [place], [place], [id number], [place] tel:[phone] [facility] No Information [facility]. [address] [place] [address], [id number], [place]. tel:[phone] MD_Follow Up Level 4 [facility], [address] [place] [address], [place], [place], [id number], [place] tel:[phone] [facility] Spondylosis without myelopathy or radiculopathy, lumbosacral regionOther spondylosis with radiculopathy, lumbar region Yoli Justice. [address] [place] [address], [address], [place]. tel:[phone] [facility], [address] [place] [address], [place], [place], [id number], [place] tel:[phone] [facility] Spondylosis w/o myelopathy or radiculopathy, thoracic region Parksley Rodney. [address] [place] [address], [place], [place], [address], [place]. tel:[phone] [facility], [address] [place] [address], [place], [place], [id number], [place] tel:[phone] [facility] No Information [facility]. [address] [place] [address], [id number], [place]. tel:[phone] [facility], [address] [place] [address], [place], [place], [id number], [place] tel:[phone] [facility] Spondylosis w/o myelopathy or radiculopathy, cervical region Blanca Obregon. [address] [place] [address], [place], [place], [address], [place]. tel:[phone] [facility], [address] [place] [address], [place], [place], [address], [place] tel:[phone] [facility] No Information [facility]. [address] [place] [address], [id number], [place]. tel:[phone] [facility], [address] [place] [address], [place], [place], [address], [place] tel:[phone] [facility] Spondylosis w/o myelopathy or radiculopathy, cervical region Beth Stevens. [address] [place] [address], [place], [place], [id number], [place]. tel:[phone] [facility], [address] [place] [address], [place], [place], [address], [place] tel:[phone] [facility] No Information [facility]. [address] [place] [address], [id number], [place]. tel:[phone] [facility], [address] [place] [address], [place], [place], [address], [place] tel:[phone] [facility] Cervical disc disorder w radiculopathy, unsp cervical region Blanca Obregon. [address] [place] [address], [place], [place], [address], [place]. tel:[phone] [facility], [address] [place] [address], [place], [place], [address], [place] tel:[phone] [facility] No Information [facility]. [address] [place] [address], [id number], [place]. tel:[phone] MD_Follow Up Level 4 [facility], [address] [place], [place] [address], [place], [place], [address], [place] tel:[phone] [facility] Postlaminectomy syndrome, not elsewhere classified Yoli Reshma. [address] [place] [address], [address], [place]. tel:[phone] MD_Follow Up Level 4 [facility], [address] [place], [place] [address], [place], [place], [id number], [place] tel:[phone] [facility] Spondyls w/o myelopathy or radiculopathy, lumbosacr region Otilia Marin. [address] [place] [address], [id number], [place]. tel:[phone] [facility], [address] [place] [address], [place], [place], [address], [place] tel:[phone] [facility] Cervical disc disorder w radiculopathy, unsp cervical region Beth Stevens. [address] [place] [address], [facility], [place], [place], [address], [place]. tel:[phone] [facility], [address] [place], [place] [address], [place], [place], [address], [place] tel:[phone] [facility] No Information [facility]. [address] [place] [address], [id number], [place]. tel:[phone] MD_Follow Up Level 4 [facility], [address] [place], [place] [address], [place], [place], [id number], [place] tel:[phone] [facility] Spondyls w/o myelopathy or radiculopathy, lumbosacr region Broderick Nye. [address] [place] [address], [id number], [place]. tel:[phone] [facility], [address] [place], [place] [address], [place], [place], [address], [place] tel:[phone] [facility] Cervical disc disorder w radiculopathy, unsp cervical region Beth Stevens. [address] [place] [address], [place], [place], [id number], [place]. tel:[phone] [facility], [address] [place] [address], [place], [place], [address], [place] tel:[phone] [facility] No Information [facility]. [address] [place] [address], [id number], [place]. tel:[phone] MD_Follow Up Level 4 [facility], [address] [place] [address], [place], [place], [id number], [place] tel:[phone] [facility] No Information Yoli Justice. [address] [place] [address], [address], [place]. tel:[phone] [facility], [address] [place] [address], [place], [place], [id number], [place] tel:[phone] [facility] No Information Beth Stevens. [address] [place] [address], [place], [place], [id number], [place]. tel:[phone] [facility], [address] [place] [address], [place], [place], [address], [place] tel:[phone] [facility] No Information [facility]. [address] [place] [address], [id number], [place]. tel:[phone] MD_Follow Up Level 4 [facility], [address] [place] [address], [place], [place], [address], [place] tel:[phone] [facility] Spondylosis without myelopathy or radiculopathy, lumbosacral region Beth Stevens. [address] [place] [address], [place], [place], [id number], [place]. tel:[phone] [facility], [address] [place] [address], [place], [place], [id number], [place] tel:[phone] [facility] Postlaminectomy syndrome, not elsewhere classified Blanca Obregon. [address] [place] [address], [place], [place], [id number], [place]. tel:[phone] [facility], [address] [place] [address], [place], [place], [address], [place] tel:[phone] [facility] No Information [facility]. [address] [place] [address], [id number], [place]. tel:[phone] MD_Follow Up Level 4 [facility], [address] [place] [address], [place], [place], [address], [place] tel:[phone] [facility] Other spondylosis with radiculopathy, lumbar region Otilia Marin. [address] [place] [address], [id number], [place]. tel:[phone] MD_Follow Up Level 4 [facility], [address] [place] [address], [place], [place], [id number], [place] tel:[phone] [facility] Other spondylosis with radiculopathy, lumbar region Beléna Tania. [address] [place] [address], [id number], [place]. tel:[phone] [facility], [address] [place] [address], [place], [place], [address]47[address]65, [place] tel:[phone] [facility] No Information Appletoncristhian LeesVivian. [address] [place] [address], [address], [place]. tel:[phone] [facility], [address] [place] [address], [place], [place], [address], [place] tel:[phone] [facility] No Information [facility]. [address] [place] [address], [id number], [place]. tel:[phone] [facility], [address] [place] [address], [place], [place], [address], [place] tel:[phone] [facility] No Information Beth Stevens. [address] [place] [address], [place], [place], [id number], [place]. tel:[phone] [facility], [address] [place] [address], [place], [place], [address]3774, [place] tel:[phone] [facility] No Information Otilia Marin. [address] [place] [address], [id number], [place]. tel:[phone] [facility], [address] [place] [address], [place], [place], [id number], tel:[phone] [facility] No Information Arsalanrichardtammy Praveen. [address] [place] [address], [address] [place] [address], [place], [place], [id number], [place]. tel:[phone] MD_Follow Up Level 5 [facility], [address] [place] [address], [place], [place], [id number], [place] tel:[phone] [facility] No Information Otilia Marin. [address] [place] [address], [id number], . tel:[phone] Behavioral (Psych) 60 mins [facility], [address] [place] [address], [place], [place], [id number], [place] tel:[phone] [facility] Spondylosis without myelopathy or radiculopathy, lumbosacral region Hermelinda Peña. [address] [place] [address], [id number], [place]. tel:[phone] [facility], [address] [place] [address], [place], [place], [address]3350, [place] tel:[phone] [facility] No Information [facility]. [address] [place] [address], [id number], [place]. tel:[phone] [facility], [address] [place] [address], [place], [place], [address]214, [place] tel:[phone] [facility] No Information Beth Stevens. [address] [place] [address], [address] [place] [address], [place], [place], [id number], [place]. tel:[phone] [facility], [address] [place] [address], [place], [place], [id number], [place] tel:[phone] [facility] No Information Parksley Rodney. [address] [place] [address], [place], [place], [address]659[address]995, [place]. tel:[phone] [facility], [address] [place] [address], [place], [place], [address], [place] tel:[phone] [facility] No Information [facility]. [address] [place] [address], [id number], [place]. tel:[phone] [facility], [address] [place] [address], [place], [place], 275[address]136, [place] tel:[phone] [facility] No Information Parksley Rodney. [address] [place] [address], [place], [place], [address]51, [place]. tel:[phone] MD_Follow Up Level 4 [facility], [address] [place] [address], [place], [place], [id number], [place] tel:[phone] [facility] Spondylosis without myelopathy or radiculopathy, lumbosacral region Parksley Rodney. [address] [place] [address], [place], [place], [address]2338, [place]. tel:[phone] [facility], [address] [place] [address], [place], [place], [address]8213, [place] tel:[phone] [facility] No Information Parksley Rodney. [address] [place] [address], [place], [place], [address], [place]. tel:[phone] [facility], [address] [place] [address], [place], [place], 195810866, [place] tel:[phone] [facility] No Information [facility]. [address] [place] [address], [id number], [place]. tel:[phone] [facility], [address] [place] [address], [place], [place], 3249[address]203, [place] tel:[phone] [facility] No Information Parksley Rodney. [address] [place] [address], [id number], [place]. tel:[phone] [facility], [address] [place], [place] [address], [place], [place], [address], [place] tel:[phone] [facility] No Information [facility]. [address] [place] [address], [id number], [place]. tel:[phone] [facility], [address] [place] [address], [place], [place], 6445[address]873, [place] tel:[phone] [facility] No Information Beth Stevens. [address] [place] [address], [address] [place] [address], [place], [place], 173057886, [place]. tel:[phone] [facility], [address] [place] [address], [place], [place], 588[address]992, [place] tel:[phone] [facility] No Information [facility]. [address] [place] [address], [id number], [place]. tel:[phone] MD_Follow Up Level 3 [facility], [address] [place] [address], [place], [place], [address]672253, [place] tel:[phone] [facility] Lumbosacral spondylosis without myelopathy Beth Stevens. [address] [place] [address], [place], [place], [id number], [place]. tel:[phone] MD_Follow Up Level 3 [facility], [address] [place] [address], [place], [place], 364332191, [place] tel:[phone] [facility] Knee Pain (chief complaint) Enthesopathy of knee, unspecified Roque Garcia. [address] [place] [address], [address], [place]. tel:[phone] [facility], [address] [place] [address], [place], [place], 1785[address]261, [place] tel:[phone] [facility] No Information Otoniel Wang. [address] [place] [address], [address] [place] [address], [place], [place], 837[address]123, [place]. tel:[phone] [facility], [address] [place] [address], [place], [place], [id number], [place] tel:[phone] [facility] No Information [facility]. [address] [place] [address], [id number], [place]. tel:[phone] MD_Follow Up Level 3 [facility], [address] [place] [address], [place], [place], [id number], [place] tel:[phone] [facility] Opioid type dependence, continuous useLumbosacral spondylosis without myelopathyComplete rupture of rotator cuff Parksleysamson Stevens. [address] [place] [address], [place], [place], [id number], [place]. tel:[phone] [facility], [address] [place] [address], [place], [place], [address]1621, [place] tel:[phone] [facility] No Information Beth Stevens. [address] [place] [address], [place], [place], [id number], [place]. tel:[phone] [facility], [address] [place] [address], [place], [place], 737360954, [place] tel:[phone] [facility] No Information [facility]. [address] [place] [address], [id number], [place]. tel:[phone] MD_Follow Up Level 4 [facility], [address] [place] [address], [place], [place], [address]8972370, [place] tel:[phone] [facility] back pain (chief complaint)s houlder pain (chief complaint) No Information Del Avalos. [address] [place] [address], [id number], [place]. tel:[phone] MD_Follow Up Level 4 [facility], [address] [place] [address], [place], [place], [id number], [place] tel:[phone] [facility] shoulder pain (chief complaint) Osteoarthrosis, localized, primary, involving shoulder regionOther specified disorders of bursae and tendons in shoulder regionMyalgia and myositis, unspecifiedComplete rupture of rotator cuff Babatunde Jauregui. [address] [place] [address], [address], [place]. tel:[phone] NP_Office Visit Level 4 [facility], [address] [place] [address], [place], [place], [id number], [place] tel:[phone] [facility] shoulder pain (chief complaint) Lumbosacral spondylosis without myelopathyOther specified disorders of bursae and tendons in shoulder regionBicipital tenosynovitisMyalgia and myositis, unspecified Babatunde Jauregui. [address] [place], [address], . tel:[phone] MD_Follow Up Level 4 [facility], [address] [place] [address], [place], [place], [id number], [place] tel:[phone] [facility] back pain (chief complaint)s houlder pain (chief complaint) No Information Mathis Angélica Sheri Avalos. [address] [place], [place], [id number], [place]. tel:[phone] [facility], [address] [place] [address], [place], [place], [id number], [place] tel:[phone] [facility] No Information Beth Stevens. [address] [place] [address], [place], [place], [id number], [place]. tel:[phone] [facility], [address] [place] [address], [place], [place], 450893005, [place] tel:[phone] [facility] No Information [facility]. [address] [place] [address], [id number], [place]. tel:[phone] [facility], [address] [place] [address], [place], [place], 487374897, [place] tel:[phone] [facility] No Information Christianne Grimes. [address] [facility], [address], [place], [place], [address], [place]. tel:[phone] [facility], [address] [place] [address], [place], [place], 8785[address]704, [place] tel:[phone] [facility] No Information Beth Stevens. [address] [place] [address], [address] [place] [address], [place], [place], [address]89[address]342, [place]. tel:[phone] [facility], [address] [place], [place] [address], [place], [place], [address], [place] tel:[phone] [facility] No Information [facility]. [address] [place] [address], [id number], . tel:[phone] MD_Follow Up Level 5 [facility], [address] [place], [place] [address], [place], [place], [id number], [place] tel:[phone] [facility] back pain (chief complaint) No Information Yoli Reshma. [address] [place] [address], [address], . tel:[phone] [facility], [address] [place] [address], [place], [place], 913561154, tel:[phone] [facility] back pain (chief complaint) Adjustment disorder with mixed anxiety and depressed mood Shiva Samano. [address] [place] [address], [address], [place]. tel:[phone] [facility], [address] [place], [place] [address], [place], [place], [id number], [place] tel:[phone] [facility] No Information Beth Stevens. [address] [place] [address], [facility] Floor, [place], [place], [id number], [place]. tel:[phone] [facility], [address] [place], [place] [address], [place], [place], [address]3515, [place] tel:[phone] [facility] No Information [facility]. [address] [place] [address], [id number], [place]. tel:[phone] NP_Office Visit Level 5 [facility], [address] [place], [place] [address], [place], [place], [address], [place] tel:[phone] [facility] arm pain (chief complaint) Hypertension, UnspecifiedOpioid type dependence, continuous useTherapeutic Drug MonitoringSciatica Due To Displacement Of Lumbar DiscPostlaminectomy syndrome of thoracic regionLumbosacral spondylosis without myelopathySpinal Stenosis, Lumbar Region, With Neurogenic Claudication Robert Rodríguez. [address] [place] [address], [address] Floor, [place], [place], [address], [place]. tel:[phone] Family History Family Member Type Diagnosis Age At Onset Problem (finding) Family history of Subst ance Abuse Problem (finding) Family history of Heart Disease Problem (finding) Family history of High Blood Pressure Problem (finding) Family history of depre ssion Problem (finding) Family history of alcoh olism Problem (finding) Family history of Diabe sofia mellitus Payers Payer name Insurance type Covered democrat ID Authoriza tion(s) Medicare [id number] Valentine Opelika MCR Supplement Plan [id number] Social History Type Description Quantity Date Captured [...]
[2025-06-16 12:02] LABS: MANUAL DIFF FLAG NO
[2025-06-16 12:46] LABS: Hematocrit 40.7 % (37.0-47.0); Hemoglobin 12.9 g/dl (12.0-16.0); Imm Gran Abs Auto 0.07 X10*3/uL (0.00-0.03); Imm Gran Pct Auto 0.6 % (0.0-0.4); Lymphocytes Absolute Auto 1.9 X10*3/uL (1.2-4.9); Mean Corpuscular HGB Conc 31.7 g/dl (31.0-35.0); Mean Corpuscular Hemoglobin 29.5 pg (27.0-33.0); Mean Corpuscular Volume 92.9 fL (80.0-98.0); NRBC Abs Auto 0.000 X10*3/uL (0.0-0.012); NRBC Pct Auto 0.0 /100WBC (0.0-0.2); Platelet Count 420 X10*3/uL (160-400); Red Blood Count 4.38 X10*6/uL (4.20-5.50); White Blood Count 12.5 X10*3/uL (4.8-10.8)
[2025-06-16 13:10] LABS: Appearance Urine Clear; Glucose Urine UA Negative (Negative); PH 6.0 (5.0-9.0); Specific Gravity - Urine 1.020 (1.005-1.025); UMIC TRIGGER UACC YES
[2025-06-16 13:52] LABS: Alanine Aminotransferase 11 U/L (0-31); Albumin Level 4.3 g/dL (3.5-5.0); Alkaline Phosphatase 121 U/L (39-117); Anion Gap 12 (12-20); Aspartate Amino Transferase 19 U/L (5-31); Blood Urea Nitrogen 15 mg/dL (9-16); Calcium 9.2 mg/dL (8.4-10.2); Carbon Dioxide 27 mmol/L (22-29); Chloride 107 mmol/L (96-108); Estimated Glomerular Filt Rate > 60; Potassium 3.7 mmol/L (3.3-5.1); Sodium 142 mmol/L (135-145); Total Protein 7.3 g/dL (6.5-8.0)
--- OUTSIDE RECORDS SUMMARY | 2025-06-16 22:16 | XMS_ITS | Encounter Summary ---
Author Organization [facility] Address [address] [place] [address] Phone Care Team Providers Care Truck Driving Instructor Name Role Phone Ne Cho MD Unavailable [phone] Ling Middleton NP Primary Care Provider + Encounter Details Date Type Department Care Team (Late st Contact Info) Description 12/05/2021 Transcribe Orders [facility] P[facility] [address] [place] [address] Darrin Gómez MD, [place] [address] [id number] Social History Tobacco Use Types Packs/Day Years Used Date Smoking Tobacco: Former Cigarettes 0.8 10 1 958 - 3668 Smokeless Tobacco: Never Alcohol Use Standard Drinks/Week Comments Yes 10 (1 standard drink = 0.6 oz pu re alcohol) Education Answer Date Recorded Are you interested in help w ith more adult education (for example, completing high school, GED, job training, learning the [place] language, technical skills, or developing parenting skills)? [...] 1. Pt will explore exercise classes at [facility] once cleared by spinal surgeon. 2. Pt will engage in Weight Watchers classes. documented as of this encounter Visit Diagnoses Not on filedocumented in this encounter Additional Health Concerns Assessment Noted Time PHQ-2 Depression Total Score: 0 03/12/20 18 1:28 PM EDT documented as of this encounter Care Teams Truck Driving Instructor Relationship Specialty Start Date End Date Ling Middleton NP [address] [place] [address] PCP - General Family Medicine 07/05/21 Ne Cho MD [address] [place] [address], [address] BRINDA Izquierdo [address] [email or web address] Insurance Assigned Provider 11/04/19 08/04/22 documented as of this encounter Additional Source Comments The information contained in this document represents components of the legal health record. It is not the complete legal health record.[facility]
--- OUTSIDE RECORDS SUMMARY | 2025-06-16 22:16 | XMS_ITS | Data Portability ---
Author Organization [facility] Pain Managem ent, PAIN OFFICE Address [address] [facility] [address] [place] [address] Care Team Providers Care Locomotive Pipe Fitter Name Role Phone DANNY SHALA Referring Provider [...] Not available 08/16/2015 13:06:36 09/01/2015 09/01/2015 Brenda Wofl is a 79 year old woman with [...] booked for the same. 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 Patient Instructions Encounter Date Encounter Id Patient Instructions Last Modified By Organization Details Last Modified Time 08/16/2015 [id number] She was advised against bed rest lasting longer than four days and to continue activities as tolerated. tmanikantan Not available 08/16/2015 13:04:51 09/01/2015 [id number] She was advised against bed rest lasting longer than four days and to continue activities as tolerated. tmanikantan Not available 09/01/2015 15:28:37 09/07/2015 [id number] She was advised against bed rest lasting longer than four days and to continue activities as tolerated. tmanikantan Not available 09/08/2015 14:18:24 09/13/2015 [id number] She was advised against bed rest lasting longer than four days and to continue activities as tolerated. tmanikantan Not available 09/13/2015 14:59:45 09/23/2015 [id number] She was advised against bed rest lasting longer than four days and to continue activities as tolerated. [email or web address] Not available 09/27/2015 10:03:45 Reason for Referral None Reported. Results Created Date Observation Date Name Description Value Unit Range Abnormal Flag Note LastModifiedBy Organization Detail LastModifiedTime 08/22/19 16 08/22/2015 x-ray , tony lissette, 2 views No observ ation record ed. [facility] [address] [place] [address], [address], 09/01/2015 15:28:37 Result Notes None recorded. Problems Name Problem SNOMED Code Status Onset Date Resolution Date Notes Provider Name and Address Organization Details Recorded Time Enthesopathy of hip region 79987866 Active Johnny henning MD [address] , [address], [facility] [place], [address], [place] [facility] 6 11:36:10 Lumbosacral spondylosis without myelopathy 09830173 Active Johnny henning MD [address] , [address], [facility], [address], [place] [facility] 6 11:36:10 Lumbar post-laminecto my syndrome 557363618 Jillian henning MD [address] , [address], [facility], [address], [place] [facility] 6 11:36:10 Lumbosacral radiculitis 74928011 Jillian henning MD [address] , [address], [facility], [address], [place] [facility] 6 11:36:10 Disorder of bursa of shoulder region 32061820 Jillian henning MD [address] , [address], [facility] [place], [address], [place] [facility] 6 11:36:11 Muscle pain 09613412 Jillian henning MD [address] , [address], [facility] [place], [address], [place] [facility] 6 11:36:10 Problem Notes None recorded. Procedures Surgical History Date Name Laterality Status Provider Name and Address Organization Details Recorded Time 09/13/19 16 Radiofrequency of Lumbar/Sacral medial branches supplying the facets under fluoroscopic guidance completed Johnny Montanez MD [address] , [address], [place], [address], [place] [facility] 09/14/2015 14:17:33 09/07/19 16 Lumbar median branch block under fluroscopic guidance completed Johnny Montanez MD [address] , [address], [place], [address], [place] [facility] 09/08/2015 14:23:25 08/16/19 16 Fluoroscopic Guided Lumbar Facet Steroid Injections of levels completed Johnny Montanez MD [address] , [address], [place], [address], [place] [facility] 08/16/2015 13:09:50 03/08/20 15 Fluoroscopic Guided Lumbar Facet Steroid Injections of levels completed Johnny Montanez MD [address] , [address], [place], [address], [place] [facility] 03/09/2015 09:22:44 [...] % 97 % 182/72 mm[Hg] Anisha Mendieta [facility] Management 6 10:23:34 Date Recorded Oxygen saturation Oxygen saturation in Arterial blood by Pulse oximetry Heart rate Systolic And Diastolic Provider Name and Address Organization Details Last Updated DateTime 09/01/2015 97 % 97 % 76 /min 118/58 mm[Hg] Anisha Mendieta [facility] Pain Management 6 15:00:38 Date Recorded Oxygen saturation Oxygen saturation in Arterial blood by Pulse oximetry Heart rate Systolic And Diastolic Provider Name and Address Organization Details Last Updated DateTime 09/07/2015 99 % 99 % 65 /min 140/88 mm[Hg] Anisha Mendieta [facility] Pain Management 6 09:43:17 Date Recorded Oxygen saturation Oxygen saturation in Arterial blood by Pulse oximetry Heart rate Systolic And Diastolic Provider Name and Address Organization Details Last Updated DateTime 09/13/2015 98 % 98 % 67 /min 157/45 mm[Hg] Anisha Mendieta [facility] Pain Management 6 10:18:19 Date Recorded [...] Or Recreational Drugs Have You Used? No [id number] Information not available 05/13/2020 Education [address] [place] [place] [address] Information no t available 03/01/2015 Live Alone Or With Others? Alone [facility] Information not available 03/01/2015 Marital Status [facility] Informatio n not available 03/01/2015 How Many Years Have You Smoked Tobacco? 20 [id number] Information not available 05/13/2020 Sex: Unknown Functional Status Question Answer Note LastModified by Organization D etails LastModified Time What is your level of alcohol consumption? Moderate Wine [id number] Information not available 05/13/2020 Are you currently employed? No [id number] Information not available 05/13/2020 Mental Status None [...] ICD10 Code Diagnosis IMO Codes Diagnosis Note [id number] Johnny Montanez MD PAIN OFFICE [address] [place] [address] 03/01/2015 10:09:29 03/02/2015 11:29:26 Lumbar post-laminectomy syndrome 928784015 Lumbosacra l radiculitis 61499022 Lumbosacra l spondylosis without myelopathy 73725717 Enthesopat hy of hip region 36499689 21888 Johnny Montanez MD PAIN OFFICE [address] [address] 03/08/2015 14:21:23 03/09/2015 09:25:14 Lumbosacral spondylosis without myelopathy 83409365 Enthesopat hy of hip region 92232963 Lumbosacra l radiculitis 40961280 Lumbar post-laminectomy syndrome 050648111 10706 Johnny Montanez MD [facility] PAIN OFFICE [address] [facility] [address] 04/11/2015 14:50:34 04/12/2015 09:13:56 Lumbosacral spondylosis without myelopathy 72389807 Enthesopat hy of hip region 14273002 Lumbosacra l radiculitis 39968970 Lumbar post-laminectomy syndrome 127800223 21074 Johnny Montanez MD PAIN OFFICE [address] [facility] [place] [address] 08/16/2015 10:11:47 08/16/2015 14:46:00 Lumbosacral spondylosis without myelopathy 00944815 M47.817 Enthesopat hy of hip region 46163356 M76.9 Lumbosacra l radiculitis 55591469 M54.17 Lumbar post-laminectomy syndrome 603426788 M96.1 Disorder o f bursa of shoulder region 87485920 M25.812 12437 Johnny Montanez MD [facility] PAIN OFFICE [address] [facility] [place] [address] 09/01/2015 14:03:53 09/01/2015 15:37:11 Lumbosacral spondylosis without myelopathy 72266064 M47.817 Enthesopat hy of hip region 43755459 M76.9 Disorder o f bursa of shoulder region 73318138 M25.812 Lumbosacra l radiculitis 06993083 M54.17 Lumbar post-laminectomy syndrome 167599575 M96.1 24378 Johnny Montanez MD [facility] PAIN OFFICE [address] [facility] [place] [address] 09/07/2015 09:36:32 09/08/2015 14:24:03 Lumbosacral spondylosis without myelopathy 20671721 M47.817 Enthesopat hy of hip region 35252149 M70.61 Disorder o f bursa of shoulder region 41115610 M25.812 Lumbosacra l radiculitis 86846895 M54.17 Lumbar post-laminectomy syndrome 361716987 M96.1 61355 Johnny Montanez MD PAIN OFFICE [address] [place] [address] 09/13/2015 10:08:37 09/13/2015 15:13:45 Lumbosacral spondylosis without myelopathy 37352266 M47.817 Lumbar post-laminectomy syndrome 727817261 M96.1 Enthesopat hy of hip region 30188498 M70.61 Disorder o f bursa of shoulder region 71639807 M25.812 Lumbosacra l radiculitis 52929613 M54.17 58301 Johnny Montanez MD PAIN OFFICE [address] [place] [address] 09/23/2015 08:47:47 09/27/2015 11:36:33 Lumbosacral spondylosis without myelopathy 16718393 M47.817 Lumbar post-laminectomy syndrome 482581015 M96.1 Lumbosacra l radiculitis 94360941 M54.17 Muscle pain 30926989 M79 .1 Enthesopat hy of hip region 02858891 M70.61 Disorder o f bursa of shoulder region 35979021 M25.812 Health Concerns Section Related Observation LastModified by Organization Detai ls LastModified Time None Recorded Concern Status LastModified by Organization Details LastModified Time None Recorded Advance Directives Directive None Recorded Payers Insurance Date Sequence Insurance Name Policy Number Policy Blanco Covered Member ID Blanco Member ID Guarantor Name 04/11/2015 1 ROSITA BARRIOS - MEDICARE-[address] [employer]ARD (MEDICARE) Brenda Wolf [id number] Brenda Wolf 09/01/2015 1 [place] B-[place] [facility] Brenda Wolf [id number] Brenda Wolf 09/27/2015 2 [facility] (MEDICARE SUPPLEMENT) Brenda [id number] Brenda Wolf [...] her left shoulder. Johnny Montanez MD [address] [facility] , [address], [place], [address], [facility] 08/18/2015 09:24:14 09/01/2015 text/html She is here for a follow up after a left shoulder X-ray. 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 She states she has seen a PA at [facility] and she recommended a total knee [...] an issue presently. Johnny Montanez MD [address] [facility] , [address], [place], [address], [facility] 09/02/2015 11:09:45 09/07/2015 text/html She is here for a trial of right median branch block under fluoroscopic guidance at L4, L5and S1 medial branches. Johnny Montanez MD [address] [facility] , [address], [place], [address], [facility] 09/08/2015 15:45:44 09/13/2015 text/html She [...] with the RF. Johnny Montanez MD [address] [facility] , [address], [place], [address], [facility] 09/14/2015 14:17:41 09/23/2015 text/html She is here for a follow up. She states she is noticing pain in her muscles in the low back and she had difficulty sleeping due to pain and muscle spasms since the radiofrequency ablation. She has been applying ice. She has seen Tamika at [facility] and has started synvisc injections for her [...] or bowel incontinence. Johnny Montanez MD [address] [facility] , [address], [place], [address], [facility] 10/03/2015 08:52:43 OBGyn Episode No OBEpisode recorded.
--- OUTSIDE RECORDS SUMMARY | 2025-06-16 22:16 | XMS_ITS | Patient Health Record ---
Author Organization [facility] Address [address] [place] [address] Care Team Providers Care Associate Store Director Name Role Phone Ling Middleton DNP Primary Care Provider Elbert Jose Jr Unavailable Allergies Allergen (clinical drug ingredient) Drug/Non Drug Allergy documented on EMR Reaction Allergy Type Onset Date Status chlorpheniramine Allergy Unknown Drug Allergy Active Reason For Referral No Information Medications Medication SIG (Take, Route, Frequency, Duration) Notes Start Date End Date Status Pantoprazole Sodium 40 MG Tablet Delayed Release TAKE 1 TABLET BY MOUTH EVERY DAY; Duration: 90 days Active Losartan Potassium 100 MG Tablet 1 tablet Orally Once a day Active Sertraline HCl 50 MG Tablet 1 tablet Ora lly Once a day; Duration: 30 day(s) Active Atorvastatin Calcium 10 MG Tablet 1 tablet Orally Once a day Active Breo Ellipta Active Albuterol Sulfate HFA Active amLODIPine Besylate 10 MG Tablet 1 tablet Orally Once a day Active Tylenol 8 Hour Arthritis Pain Active Claritin 10 MG Tablet 1 tablet Orally On ce a day; Duration: 30 day(s) Active Ipratropium [place] 0.06 % Solution 2 sprays in each nostril Nasally Three times a day; Duration: 4 day(s) Active Amoxicillin 500 MG Capsule 1 capsule Ora lly NEEDED FOR DENTIST Active Calcium 500 MG Tablet Chewable 1 tablet Orally Once a day Active Tramadol & Dietary Manage Prod Active Vitamin D3 Ultra Potency 07492 UNIT Tablet 1 tablet Orally as directed Active Immunizations Vaccine Route Administration Date Status Comme nts Influenza Unknown 03/29/2016 Administered Influenza Unknown 02/29/2020 Administered Influenza Unknown 05/16/2022 Administered Social History Social History Drugs/Alcohol: Social Info Question Answer Notes Alcohol Screen Did you have a drink containing alcohol in the past year? Yes How often did you have a drink containing alcohol in the past year? 2 to 3 times a week (3 points) How many drinks did you have on a typical day when you were drinking in the past year? 1 or 2 drinks (0 point) How often did you have 6 or more drinks on one occasion in the past year? Never (0 point) Points 3 Interpretation Positive Additional Details Category Social Info Options Details Miscellaneous: Marital status: Occupation: retired Section Notes: wine at dinner wine at dinner wine at dinner wine at dinner wine at dinner wine at dinner Problems Problem Type SNOMED Code ICD Code Onset Dates Problem Status W/U Status Risk Notes Problem Rectal bleeding (33002221) Rectal bleeding (K62.5) Active confirmed Problem Gastro-esophagea l reflux disease without esophagitis (431003815) Gastro-esophage al reflux disease without esophagitis (K21.9) Active confirmed Problem Cough (70948701) Cough (R05) Active confirmed Problem Urinary incontinence (416266194) Urinary incontinence, unspecified type (R32) Active confirmed Plan Of Treatment Pending Test Test Name Order Date XR GI SERIES 07/14/2015 Insurance Providers Payer Name Payer Address Payer Phone Subscriber Number Group Number Insured Name Patient Relationship to Insured Coverage Start Date Coverage End Date MEDICARE OF [place] [address] [place] [id number] KAY COLLINS Self - patient is the insured [employer] [address] BR[place] THAKKAR [id number] KAY COLLINS Self - patient is the insured Medical (General) History Medical History History ICD Code EGD/colonoscopy 01/03/2006. No evidence of Morse's esophagus. Hyperplastic colon polyp. Seasonal allergic rhinitis hypertension hypercholesterolemia scoliosis arthritis depression Surgical History Surgery Date(Month/Year) Vocal cord polyp 2006 Multiple back and neck surgeries rotator cuff surgery both knee replacement left
--- OUTSIDE RECORDS SUMMARY | 2025-06-16 22:16 | XMS_ITS | Data Portability ---
Author Organization [place] [facility], [facility] Address [address] [place] [address] Assessment Encounter Date Assessment Date Assessment LastModified [...] 96 % 143/79 mm[Hg] Yun Harrell MD [address] [place] [address], [address] [place], [place] - [facility] 8 16:35:36 Date Recorded Body temperature Heart rate Respiratory rate Systolic And Diastolic Provider Name and Address Organization Details Last Updated DateTime 12/02/2017 98.5 [degF] 80 /min 18 /min 125/59 mm[Hg] GUILHERME Cazares NP [address] [place] [address], [address] [place] [address] [facility] 8 10:16:59 Date Recorded Body temperature Heart rate Respiratory rate Systolic And Diastolic Provider Name and Address Organization Details Last Updated DateTime 12/04/2017 99.7 [degF] 68 /min 18 /min 103/57 mm[Hg] GUILHERME Cazares NP [address] [place] [address], [address] [place] [address] [facility] 8 09:45:06 Date Recorded Body temperature Heart rate Systolic And Diastolic Provider Name and Address Organization Details Last Updated DateTime 12/05/2017 97.8 [degF] 80 /min 147/78 mm[Hg] GUILHERME HALL NP [address] [place] [address], [address] 12/05/2017 10:18:56 Date Recorded Body weight Body temperature Heart rate Oxygen saturation Oxygen saturation in Arterial blood by Pulse oximetry Systolic And Diastolic Provider Name and Address Organization Details Last Updated DateTime 8 [address].5 2 g 97.8 [degF] 72 /min 96 % 96 % 99/41 mm[Hg] GUILHERME Cazares NP [address] [place] [address], [address] [place] [address] [facility] 8 09:38:58 Social History Question Answer Notes LastModified by Organizat ion Details LastModified Time Tobacco Smoking Status Former Smoker Yun Harrell MD [address] [place] [address], [address], [facility] 12/01/2017 16:36:41 Live Alone [...] ICD10 Code Diagnosis IMO Codes Diagnosis Note [id number] Yun Harrell MD [facility] [address] [place] [address] 12/01/2017 16:22:36 12/06/2017 14:56:06 Spinal stenosis of lumbar region 05659545 M48.061 s/p decompress ion, pain is controlled on tylenol, dilaudid, fentanyl patch, PT, OT, wound care Essential hypertension 34704776 I10 cont amlodipin, losartan Hyperlipidemia 69439398 E78.5 cont lipitor Gastroesop hageal reflux disease without esophagitis 064814668 K21.9 cont PPI Constipation 22603667 K5 9.00 colace, senna, miralax ,enema if needed Depressive disorder 3548 9007 F32.9 cont zoloft, trazodone [id number] GUILHERME HALL NP [place] [address] [place] [address] 12/02/2017 10:05:52 12/04/2017 11:11:45 Spinal stenosis of lumbar region 36098024 M48.061 s/p decompress ion, pain is controlled on tylenol, dilaudid, fentanyl patch, cont with PT and OT here; incision is covered with steri stips and DPD Essential hypertension 55409366 I10 cont amlodipin, losartango od BP control Hyperlipidemia 86632538 E78.5 cont lipitor Gastroesop hageal reflux disease without esophagitis 942777123 K21.9 cont PPI Constipation 70122917 K5 9.00 good BM; cont current med regiment Depressive disorder 3548 9007 F32.9 cont zoloft, trazodone [id number] GUILHERME HALL NP [facility] [address] [place] [address] 12/04/2017 09:44:05 12/06/2017 14:28:20 Spinal stenosis of lumbar region 36587839 M48.061 s/p decompress ion, pain is controlled on tylenol, dilaudid, fentanyl patch, cont with PT and OT here; incision is covered with steri stips. Essential hypertension 34590223 I10 cont amlodipin, losartango od BP control Hyperlipidemia 13777311 E78.5 cont lipitor Gastroesop hageal reflux disease without esophagitis 642184897 K21.9 cont PPI Constipation 53664732 K5 9.00 good BM; cont current med regiment Depressive disorder 2176 9007 F32.9 cont zoloft, trazodone Leukocytosis 391429547 D 72.829 wbc 12; pt has a fever; will get UA [id number] GUILHERME HALL NP [facility] [address] [place] [address] 12/05/2017 10:17:51 12/10/2017 16:37:53 Spinal stenosis of lumbar region 58804293 M48.061 s/p decompress ion, pain is controlled on tylenol, dilaudid, fentanyl patch, cont with PT and OT here; incision is covered with steri stips.pt jose be d/c home in a few days Leukocytosis 545553016 D 72.829 UA neg, afebrile; cbc pending from today Essential hypertension 85795584 I10 cont amlodipine , losartango od BP control Constipation 19446281 K5 9.00 good BM; cont current med regiment [id number] GUILHERME HALL NP [facility] [address] [place] [address] 12/06/2017 09:34:53 12/13/2017 12:45:01 Spinal stenosis of lumbar region 77281243 M48.061 s/p decompress ion, pain is controlled on tylenol, dilaudid, fentanyl patch,will give rx for fentalyn pathc #4 to go home withMass pat checkedf/u wit [place] in 8 weeks Essential hypertension 40424636 I10 cont amlodipin, losartan Hyperlipidemia 90087458 E78.5 cont lipitor Gastroesop hageal reflux disease without esophagitis 007563806 K21.9 cont PPI Constipation 17592927 K5 9.00 colace, senna, miralax ,enema if [...] [place]IC[place] B-[place]: [employer] Brendakarina Wolf [id number] Brenda Andras 12/04/2017 2 [facility] - MEDICARE ENHANCE (INDEMNITY PLAN) Brenda Andyani [id number] Brenda Andras Notes Date Note Type Note Provider Name and Address Organization Details Recorded Time 12/01/2017 text/html ROS as noted in the HPI seen for admission- came from [facility] where pt had L3-S1 decompression.Pt tolerated procedure well, pain is controlled on current fentanyl patch and dilaudidPt came to for further care Yun Harrell MD [address] [place] [address], [phone], [facility] 12/01/2017 16:43:01 12/02/2017 text/html ROS as noted in the HPI seeing pt today for f/u; continues to work with therapy here, making progress. Pt came from [facility] where pt had L3-S1 decompression.Pt tolerated procedure well, pain is controlled on current fentanyl patch and dilaudid. GUILHERME HALL NP [address] [place] [address], [address], [facility] 12/02/2017 10:21:10 12/04/2017 text/html ROS as noted in the HPI seeing pt today for f/u; continues to work with therapy here, making progress. Pt came from [facility] where pt had L3-S1 decompression.Pt tolerated procedure well, pain is controlled on current fentanyl patch and dilaudid. GUILHERME HALL NP [address] [place] [address], [address], [facility] 12/04/2017 12:59:51 12/05/2017 text/html [...] patch and dilaudid. GUILHERME HALL NP [address] [place], [address], [facility] 12/07/2017 15:19:06 12/06/2017 text/html seeing pt today for d/c; pt has done well with therapy here, made progress, will be d/c home tomorrow. GUILHERME HALL NP [address] [place] [address], [address], [facility] 12/08/2017 11:15:02 OBGyn Episode No OBEpisode recorded.
--- OUTSIDE RECORDS SUMMARY | 2025-06-16 22:16 | XMS_ITS | Encounter Summary ---
Author Organization [facility] Address [address] [facility] [address] [place] [id number] Phone Care Team Providers Care Head Of Sales Name Role Phone Ne Cho MD Unavailable [phone] Unknown, Unknown Primary Care Provider Ling Blanc NP Primary Care Provider + Reason for Referral * Consultation (Elective) - Closed Specialty Diagnoses / Procedures Referred By Contac t Referred To Contact Pulmonary Disease Diagnoses Wheezing Ling Middleton NP Phone: tel: fax: [address] [address] Phone: tel: Referral ID Status Reason Start Date Expiration Date Visits Re quested Visits Authorized [id number] Closed 06/26/2021 06/26/2022 1 1 Encounter Details Date Type Department Care Team (Late st Contact Info) Description 06/26/2021 Transcribe Orders [facility] Pulmonary, Allergy and Critical Care Medicine [address] [place], [place] [phone] Ling Middleton NP [address] [place] [address] [id number] Wheezing (Primary Dx) Social History Tobacco Use Types Packs/Day Years Used Date Smoking Tobacco: Former Cigarettes 1 8 - 1966 Smokeless Tobacco: Never Education Answer Date Recorded Are you interested in help w ith more adult education (for example, completing high school, GED, job training, learning the [place] language, technical skills, or developing parenting skills)? [...] Associated Diagnoses Order Schedule Ambulatory referral to [facility] Pulmonology Outpatient Referral Routine Wheezing [...] will explore exercise classes at [facility] once cleared by spinal surgeon. 2. Pt will engage in Weight Watchers classes. documented as of this encounter Visit Diagnoses Diagnosis Wheezing- Primary documented in this encounter Additional Health Concerns Assessment Noted Time PHQ-2 Depression Total Score: 0 03/12/20 18 1:28 PM EDT documented as of this encounter Care Teams Head Of Sales Relationship Specialty Start Date End Date Unknown, Unknown, MD PCP - General 06/28/21 07/04/21 Ling Middleton NP [address] [place] [id number] PCP - General Family Medicine 07/05/21 Ne Cho MD [address] [place] [address], [address] [place] [address] [email or web address] Insurance Assigned Provider 11/04/19 08/04/22 documented as of this encounter Additional Source Comments The information contained in this document represents components of the legal health record. It is not the complete legal health record.[facility]
--- OUTSIDE RECORDS SUMMARY | 2025-06-16 22:16 | XMS_ITS | Patient Health Record ---
Author Organization [facility] Address [address] [facility] [place] [address] Care Team Providers Care It Security Architect Name Role Phone Allison Ham Primary Care Provider Nyla Sharma Unavailable [phone] Allergies Allergen (clinical drug ingredient) Drug/Non Drug Allergy documented on EMR Reaction Allergy Type Onset Date Status Adhesive - Paper Tap e (uncoded) Unknown Allergy Active Grass Mix Pollens Allergen Ext Unknown Drug Allergy Active Cats Unknown Allergy Active Dust Mites Unknown Allergy Active Reason For Referral No Information Medications Medication SIG (Take, Route, Frequency, Duration) Notes Start Date End Date Status Nasal Omer Not-Taki ng Vitamin D 400 UNIT 1 [...] day; Duration: 30 day(s) 07/05/2020 Not-Taking Ipratropium [place] 0.06 % USE 1 SPRAY I N [...] primary osteoarthritis of the ankle and/or foot (859252278) 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 Vital Signs Blood pressure diastolic 80 mm Hg 04/09/2025 Height 4 ft 11 in in 04/09/2025 Blood pressure systolic 140 mm Hg 04/09/2025 Weight 175 lbs 04/09/2025 BMI 35.34 kg/m2 04/09/2025 Encounters Encounter Location Date Provider Diagnosis [facility] [address] [place] [address] 04/09/2025 Nyla Perica Pain in right toe(s) [...] X ray : Foot, right 3V 06/19/2019 [id number] NAIL, 6 OR MORE 03/07/2018 21150-Wwvrbfgh Plate 06/25/2011 65408- Debride <25 sq cm 07/11/2011 [id number],[id number] TENDON SHEATH/LIGAMENT 1 08/19/2018 42595,[id number] TENDON SHEATH/LIGAMENT 0 03/07/2018 69039,[id number] TENDON SHEATH/LIGAMENT 1 63823,[id number] TENDON SHEATH/LIGAMENT 0 01/06/2020 81554,[id number] TENDON SHEATH/LIGAMENT 0 04/12/2020 96244- Unna Boot 06/19/2019 X ray : Ankle, right 3V 06/19/2019 Next Appt Details Provider Name:Nyla Cory wang, 06/18/2025 01:30:00 PM, [address] [facility], [place], [address], Insurance Providers Payer Name Payer Address Payer Phone Subscriber Number Group Number Insured Name Patient Relationship to Insured Coverage Start Date Coverage End Date Medicare National [facility] [address] [place] [address] [id number] Brenda Wolf Self - patient is the insured [address] [place] [address] [place] [phone] [id number] Brenda Wolf Self - patient is the insured Medical (General) History Medical History History ICD Code anxiety Arthritis back, hip, knee pain hypertension osteoporosis measles joint implants/screws asthma CAD (Cholesterol) Depression A fib Surgical History Surgery Date(Month/Year) neck surgery 1989 back surgery 1992 knee replacement 2007 carpal tunnel surgery 05/2017 spinal stenosis surgery 11/26/2017 Hospitalization History Reason Date(Month/Year) [facility]- fell,CAT scan, stiches, 06/15/19- 1 08/19/18 [facility]- Spinal sten osis Sx 11/26/2017 right foot hurting diagnosed plantar 07/17/2017
--- OUTSIDE RECORDS SUMMARY | 2025-06-16 22:16 | XMS_ITS | Clinical Summary ---
Author Organization [facility] Address [address] [facility] [address] [place] [phone] Phone Care Team Providers Care Athletic Shoe Designer Name Role Phone Ling Middleton NP Primary [...] spur. I referred her to a new pre press proofer today and she will call for an appointment. She will call if things get worse or if they change. She understands and agrees. Lumbar post-laminectomy syndrome 05/26/2020 Enthesopathy of hip region 05/26/2020 Disorder of bursae of shoulder region 05/26/2020 Chronic pain of right ankle 12/03/2019 Assessment & Plan (01/05/2020 1:01 PM EDT): I recommend she call [facility] and request a second opinion from [...] surgery w Dr Kc 11/26/17 Dr. Kc, [place] Assessment & Plan (05/06/2018 8:32 PM EDT): Patient with complex chronic pain status post multiple spinal surgeries. She has been using fentanyl patch 25 mcg, this is been tapered down from 37 mcg. This last month she excessively used oxycodone due to pain flare. I think she would be better served in a comprehensive pain management clinic. She was referred to [facility]. For the meantime we will [...] from physical therapy. She is following with guidance services coordinator Assessment & Plan (12/01/2018 2:52 PM EDT): [...] Former Cigarettes 0.8 10 1 958 - 7768 Smokeless Tobacco: Never Alcohol Use Standard Drinks/Week [...] 1. Pt will explore exercise classes at [facility] once cleared by spinal surgeon. 2. Pt will engage in Weight Watchers classes. Medical Devices Not on file Procedures Procedure Name Priority Date/Time Associated Diagnosis Comments COMPREHENSIVE METABOLIC PANEL (CMP) Routine 12/05/2020 2:15 PM EDT Benign essential hypertension OUTSIDE BONE DENSITY SCREENING Routine 11/19/2013 from Last 3 Months or Most Recently Relevant to Health Maintenance Results * (ABNORMAL) Comprehensive metabolic panel (12/05/2020 2:15 PM EDT) SODIUM 140 133 - 146 mmol/L [facility] POTASSIUM 4.2 3.3 - 5.1 mmol/L [facility] CHLORIDE 105 96 - 108 mmol/L [facility] CO2 23 21 - 35 mmol/L [facility] BUN 27(H) 6 - 19 mg/dL [facility] CREATININE 0.80 0.5 - 1.5 mg/dL [facility] GLUCOSE 86 70 - 99 mg/dL [facility] ALBUMIN 4.2 3.9 - 4.8 g/dL [facility] TOTAL PROTEIN 7.2 6.5 - 8.0 g/dL [facility] CALCIUM 9.6 8.4 - 10.3 mg/dL [facility] ALKALINE PHOSPHATASE 102 39 - 117 U/L [facility] TOTAL BILIRUBIN 0.3 0.0 - 1.2 mg/dL [facility] AST 24 0 - 37 U/L [facility] ALT 21 0 - 40 U/L [facility] GLOBULIN 3.0 1 - 4.8 g/dL [facility] EGFR 68 >59 mL/min/1.7 3m2 [facility] Comment:Estimated glomerular filtration rate calculated using the CKD-EPI equation. ANION GAP 16 10 - 20 mmol/L [facility] Blood 12/05/2020 2:15 PM EDT 12/05/2020 2:16 PM EDT us Chely Samara Zurba MATCHER OFFBEARER LAB BLOOD BKR ORDERABLES Mame l Result [facility] [address] [place] [address] * OUTSIDE BONE DENSITY SCREENING (11/19/2013) BONE DENSITY SCREENING - EXTERNAL osteopenia us Historical Provider MD HEALTH MAINTENANCE Final Result from Last 3 Months or Most Recently Relevant to Health Maintenance Insurance [address] [place] [address] MEDICARE PART A & B [facility] MEDICARE ENHANCE SUPPLEMENT MEDICARE PART A & B MEDICARE ENHANCE SUPPLEMENT MEDICARE PART A & [place] [address] [place] [address] MEDICARE ENHANCE SUPPLEMENT MEDICARE PART A & [place] [address] [place] [address] MEDICARE ENHANCE SUPPLEMENT [facility] Address: [address] [place] [id number] MEDICARE PART A & B [facility] MEDICARE ENHANCE SUPPLEMENT [facility] MEDICARE ENHANCE SUPPLEMENT [facility] Address: [address] [place] [address] MEDICARE PART A & B [facility] MEDICARE ENHANCE SUPPLEMENT [facility] Address: [address] [place] [id number] MEDICARE PART A & B [facility] MEDICARE ENHANCE SUPPLEMENT MEDICARE PART A & B [facility] MEDICARE ENHANCE SUPPLEMENT Advance Directives For more information, please contact: [phone] (9AM - 5PM [facility], Saturday-Saturday) Documents on File Type Date Recorded Patient Story Editor Expl anation Healthcare Proxy 03/28/2018 1:38 PM Care Teams Athletic Shoe Designer Relationship Specialty Start Date End Date Ling Middleton NP [address] [place] [id number] PCP - General Family Medicine 07/05/21 Additional Source Comments The information contained in this document represents components of the legal health record. It is not the complete legal health record.[facility]
== END 2025-06-16 10:09 | disposition home or self-care (01) ==
LOC: HO.LAB 10:08
PROVIDERS: PCP Physician Assistant; Referring Provider Physician Assistant; Visit Provider Hospitalist
DX: J45.40 Moderate persistent asthma, uncomplicated (principal); R06.09 Other forms of dyspnea; R09.02 Hypoxemia; I10 Essential (primary) hypertension; F33.9 Major depressive disorder, recurrent, unspecified; R94.4 Abnormal results of kidney function studies; G47.00 Insomnia, unspecified; E78.00 Pure hypercholesterolemia, unspecified; M96.1 Postlaminectomy syndrome, not elsewhere classified; R09.89 Other specified symptoms and signs involving the circulatory and respiratory systems; Z87.891 Personal history of nicotine dependence
CPT/HCPCS: 36415; 80053; 81001; 81003; 84443; 85025; 99202

== ENCOUNTER 2025-06-22 14:51 | Outpatient (AMB) | payer MEDICARE, OTHER, SELFPAY ==
--- OUTSIDE RECORDS SUMMARY | 2017-02-20 05:52 | XMS_ITS | Continuity of Care Document ---
Author Organization [facility] cine Address [address] [facility] 2nd [place] [address] Phone Care Team Providers Care Gastrointestinal Technician Name Role Phone Rodney Campos MD Unavailable Unavailable Allergies, Adverse Reactions, Alerts Substance Reaction Status Criticality No Known Drug Allergies Active No I nformation Medications Medication Instructions Dosage Effective Dates (start - stop) Status Comments oxycodone 5 mg tablet take 1 tablet by oral route 4 times every day as needed for pain 1 tablet - Active Do not drive while taking this medication. senna 8.8 mg/5 mL syrup - Active cephalexin 500 mg tablet take 1 tablet by oral route every 3 hours 500 MG - Active Lipitor 10 mg tablet take 1 tablet by oral route every day at night - Active amlodipine 10 mg tablet take 1 tablet by oral route every day 10 MG - Active trazodone 50 mg tablet take 1 tablet by oral route every day 50 MG - Active Vitamin D3 2,000 unit tablet take 1 by Oral route once 1 - Active Calcium 600 600 mg (1,500 mg) tablet take 1 tablet by oral route every day 1 tablet - Active Zoloft 50 mg tablet take 1 Tablet by oral route every day 50 MG - Active losartan 100 mg tablet take 1 tablet by oral route every day 100 MG - Active Procedures Procedure Date Inj_Facet_Lumbar Inj_Facet_Lumbar_2nd Level Facility_Inj_Facet_Lumbar Facility_Inj_Facet_Lumbar_2nd Level No Burn, Fall, Wrong Site, Side, Or Meri ent, Procedure Patient W/O Pre Operartive IV Antibiotic Inj_Facet_Lumbar Inj_Facet_Lumbar_2nd Level Inj_Facet_Lumbar_3rd Level Facility_Inj_Facet_Lumbar Facility_Inj_Facet_Lumbar_2nd Level Facility_Inj_Facet_Lumbar_3rd Level No Burn, Fall, Wrong Site, Side, Or Meri ent, Procedure Patient W/O Pre Operartive IV Antibiotic MD_Follow Up Level 4 Inj_Radiofrequency_Cervical OrThoracic A Inj_Radiofrequency_Cervical Add'l Levles Facility_Radiofrequency_Cervical 2016 Facility_Radiofrequency_Cervical Add'l L evels No Burn, Fall, Wrong Site, Side, Or Meri ent, Procedure Patient W/O Pre Operartive IV Antibiotic Inj_Facet_Cervical Or Thoracic 17 Inj_Facet_Cervical_2nd Level Inj_Facet_Cervical_3rd Level Facility_Inj_Facet_Cervical Facility_Inj_Facet_Cervical_2nd Level Facility_Inj_Facet_Cervical_3rd Level No Burn, Fall, Wrong Site, Side, Or Meri ent, Procedure Patient W/O Pre Operartive IV Antibiotic Inj_Facet_Cervical Or Thoracic 17 Inj_Facet_Cervical_2nd Level Inj_Facet_Cervical_3rd Level Facility_Inj_Facet_Cervical Facility_Inj_Facet_Cervical_2nd Level Ma Facility_Inj_Facet_Cervical_3rd Level Ma No Burn, Fall, Wrong Site, Side, Or Meri ent, Procedure Patient W/O Pre Operartive IV Antibiotic Inj Epidural Cervical_Thoracic Including Imaging Facility Inj Epidrual Cervical Thoracic With Imaging No Burn, Fall, Wrong Site, Side, Or Meri ent, Procedure Patient W/O Pre Operartive IV Antibiotic Drug tests(s), presumptive, any number o f drug cla MD_Follow Up Level 4 UDT Lab_Drug Screen MD_Follow Up Level 4 Inj_Epidural_Cervical_Thoracic 16 Fluroscopic Guidance Facility_Inj_Epidrual_Cervical 16 No Burn, Fall, Wrong Site, Side, Or Meri ent, Procedure Patient W/O Pre Operartive IV Antibiotic UDT Lab_Drug Screen MD_Follow Up Level 4 Inj_Epidural_Cervical_Thoracic 16 Fluroscopic Guidance Facility_Inj_Epidrual_Cervical 16 No Burn, Fall, Wrong Site, Side, Or Meri ent, Procedure Patient W/O Pre Operartive IV Antibiotic UDT Lab_Drug Screen MD_Follow Up Level 4 Inj_Facet_Lumbar Inj_Facet_Lumbar_2nd Level Inj_Facet_Lumbar_3rd Level Facility_Inj_Facet_Lumbar Facility_Inj_Facet_Lumbar_2nd Level Facility_Inj_Facet_Lumbar_3rd Level No Burn, Fall, Wrong Site, Side, Or Meri ent, Procedure Patient W/O Pre Operartive IV Antibiotic MD_Follow Up Level 4 Inj_Transforaminal_Lumbar Facility_Inj_Transforaminal_Lumbar No Burn, Fall, Wrong Site, Side, Or Meri ent, Procedure Patient W/O Pre Operartive IV Antibiotic UDT Lab_Drug Screen MD_Follow Up Level 4 UDT Lab_Drug Screen MD_Follow Up Level 4 [facility] Special [facility] Facility_Radiofrequency_Lumbar 16 Facility_Radiofrequency_Lumbar Add'l Lev els No Burn, Fall, Wrong Site, Side, Or Meri ent, Procedure Patient W/O Pre Operartive IV Antibiotic Inj_Radiofrequency_Lumbar Or SI 016 Inj_Radiofrequency_Lumbar Add'l Levels A CP_Cancelled UDT Lab_Drug Screen MD_Follow Up Level 5 Behavioral (Psych) 60 mins Facility_Inj_Facet_Lumbar Facility_Inj_Facet_Lumbar_2nd Level Facility_Inj_Facet_Lumbar_3rd Level No Burn, Fall, Wrong Site, Side, Or Meri ent, Procedure Patient W/O Pre Operartive IV Antibiotic UDT Lab_Drug Screen Inj_Facet_Lumbar Inj_Facet_Lumbar_2nd Level Inj_Facet_Lumbar_3rd Level Facility_Inj_Facet_Lumbar Facility_Inj_Facet_Lumbar_2nd Level Facility_Inj_Facet_Lumbar_3rd Level No Burn, Fall, Wrong Site, Side, Or Meri ent, Procedure Patient W/O Pre Operartive IV Antibiotic Facility_Trig Point 1 Or 2 Inj_Facet_Lumbar Inj_Facet_Lumbar_2nd Level Inj_Facet_Lumbar_3rd Level TP_Inj_Trigger Point 1 Or 2 Muscles MD_Follow Up Level 4 Inj_Facet_Lumbar Inj_Facet_Lumbar_2nd Level Inj_Facet_Lumbar_3rd Level Facility_Inj_Facet_Lumbar Facility_Inj_Facet_Lumbar_2nd Level Facility_Inj_Facet_Lumbar_3rd Level No Burn, Fall, Wrong Site, Side, Or Meri ent, Procedure Patient W/O Pre Operartive IV Antibiotic Inj_Radiofrequency_Lumbar Inj_Radiofrequency_Lumbar Add'l Levels M Facility_Radiofrequency_Lumbar 15 Facility_Radiofrequency_Lumbar Add'l Lev els No Burn, Fall, Wrong Site, Side, Or Meri ent, Procedure Patient W/O Pre Operartive IV Antibiotic Inj_Facet_Lumbar Inj_Facet_Lumbar_2nd Level Inj_Facet_Lumbar_3rd Level Facility_Inj_Facet_Lumbar Facility_Inj_Facet_Lumbar_2nd Level Facility_Inj_Facet_Lumbar_3rd Level No Burn, Fall, Wrong Site, Side, Or Meri ent, Procedure Patient W/O Pre Operartive IV Antibiotic MD_Follow Up Level 3 MD_Follow Up Level 3 Inj_Transforaminal_Lumbar Inj_Transforaminal_Lumbar Add'l Levels S Facility_Inj_Transforaminal_Lumbar Facility_Inj_Tranforaminal Add'l Levels No Burn, Fall, Wrong Site, Side, Or Meri ent, Procedure Patient W/O Pre Operartive IV Antibiotic MD_Follow Up Level 3 Inj_Transforaminal_Lumbar Facility_Inj_Transforaminal_Lumbar No Burn, Fall, Wrong Site, Side, Or Meri ent, Procedure Patient W/O Pre Operartive IV Antibiotic MD_Follow Up Level 4 Lab_Drug Screen MD_Follow Up Level 4 1 Rx Via Qualified E-Rx System 14 NP_Office Visit Level 4 MD_Follow Up Level 4 Lab_Drug Screen Inj_Radiofrequency_Lumbar Inj_Radiofrequency_Lumbar Add'l Levels J Facility_Radiofrequency_Lumbar Facility_Radiofrequency_Lumbar Add'l Lev els No Burn, Fall, Wrong Site, Side, Or Meri ent, Procedure Patient W/O Pre Operartive IV Antibiotic Cancellation_Exception Inj_Facet_Lumbar Inj_Facet_Lumbar_2nd Level Inj_Facet_Lumbar_3rd Level Facility_Inj_Facet_Lumbar Facility_Inj_Facet_Lumbar_2nd Level Facility_Inj_Facet_Lumbar_3rd Level No Burn, Fall, Wrong Site, Side, Or Meri ent, Procedure Patient W/O Pre Operartive IV Antibiotic Lab_Drug Screen MD_Follow Up Level 5 Beh_Eval Inj_Facet_Lumbar Inj_Facet_Lumbar_2nd Level Inj_Facet_Lumbar_3rd Level Facility_Inj_Facet_Lumbar Facility_Inj_Facet_Lumbar_2nd Level Facility_Inj_Facet_Lumbar_3rd Level No Burn, Fall, Wrong Site, Side, Or Meri ent, Procedure Patient W/O Pre Operartive IV Antibiotic Lab_Drug Screen NP_Office Visit Level 5 Advance Directives Directive Yes / No Effective Date File Name No Information Encounters Encounter Description Practice Location Reason(s) For Visit Diagnoses Date Provider [facility], [address] [place] [address], [place], [place], [id number], tel:[phone] [facility] No Information Beth Stevens. [address] [place] [address], [address] [place] [address], [place], [place], [id number], [place]. tel:[phone] [facility], [address] [place], [place] [address], [place], [place], [id number], tel:[phone] [facility] Spondyls w/o myelopathy or radiculopathy, lumbosacr region [place] Rodney. [address] [place] [address], [place], [place], [id number], [place]. tel:[phone] [facility], [address] [place] [address], [place], [place], [id number], [place] tel:[phone] [facility] No Information [facility]. [address] [place] [address], [id number], [place]. tel:[phone] [facility], [address] [place] [address], [place], [place], [id number], [place] tel:[phone] [facility] Spondyls w/o myelopathy or radiculopathy, lumbosacr region [place] Rodney. [address] [place] [address], [place], [place], [id number], [place]. tel:[phone] [facility], [address] [place] [address], [place], [place], [id number], [place] tel:[phone] [facility] No Information [facility]. [address] [place] [address], [id number], [place]. tel:[phone] MD_Follow Up Level 4 [facility], [address] [place] [address], [place], [place], [id number], [place] tel:[phone] [facility] Spondylosis without myelopathy or radiculopathy, lumbosacral regionOther spondylosis with radiculopathy, lumbar region Yoli Justice. [address] [place] [address], [id number], [place]. tel:[phone] [facility], [address] [place] [address], [place], [place], [id number], [place] tel:[phone] [facility] Spondylosis w/o myelopathy or radiculopathy, thoracic region [place] Rodney. [address] [place] [address], [place], [place], [id number], [place]. tel:[phone] [facility], [address] [place] [address], [place], [place], [id number], [place] tel:[phone] [facility] No Information [facility]. [address] [place] [address], [id number], [place]. tel:[phone] [facility], [address] [place] [address], [place], [place], [id number], [place] tel:[phone] [facility] Spondylosis w/o myelopathy or radiculopathy, cervical region Blanca Obregon. [address] [place] [address], [place], [place], [id number], [place]. tel:[phone] [facility], [address] [place] [address], [place], [place], [id number], [place] tel:[phone] [facility] No Information [facility]. [address] [place] [address], [id number], [place]. tel:[phone] [facility], [address] [place] [address], [place], [place], [id number], [place] tel:[phone] [facility] Spondylosis w/o myelopathy or radiculopathy, cervical region Beth Stevens. [address] [place] [address], [place], [place], [id number], [place]. tel:[phone] [facility], [address] [place] [address], [place], [place], [id number], [place] tel:[phone] [facility] No Information [facility]. [address] [place] [address], [id number], [place]. tel:[phone] [facility], [address] [place] [address], [place], [place], [id number], [place] tel:[phone] [facility] Cervical disc disorder w radiculopathy, unsp cervical region Blanca Obregon. [address] [place] [address], [place], [place], [id number], [place]. tel:[phone] [facility], [address] [place] [address], [place], [place], [id number], [place] tel:[phone] [facility] No Information [facility]. [address] [place] [address], [id number], [place]. tel:[phone] MD_Follow Up Level 4 [facility], [address] [place], [place] [address], [place], [place], [id number], [place] tel:[phone] [facility] Postlaminectomy syndrome, not elsewhere classified Yoli Reshma. [address] [place] [address], [id number], [place]. tel:[phone] MD_Follow Up Level 4 [facility], [address] [place], [place] [address], [place], [place], [id number], [place] tel:[phone] [facility] Spondyls w/o myelopathy or radiculopathy, lumbosacr region Otilia Marin. [address] [place] [address], [id number], [place]. tel:[phone] [facility], [address] [place] [address], [place], [place], [id number], [place] tel:[phone] [facility] Cervical disc disorder w radiculopathy, unsp cervical region Beth Stevens. [address] [place] [address], [facility], [place], [place], [id number], [place]. tel:[phone] [facility], [address] [place], [place] [address], [place], [place], [id number], [place] tel:[phone] [facility] No Information [facility]. [address] [place] [address], [id number], [place]. tel:[phone] MD_Follow Up Level 4 [facility], [address] [place], [place] [address], [place], [place], [id number], [place] tel:[phone] [facility] Spondyls w/o myelopathy or radiculopathy, lumbosacr region Broderick Nye. [address] [place] [address], [id number], [place]. tel:[phone] [facility], [address] [place], [place] [address], [place], [place], [id number], [place] tel:[phone] [facility] Cervical disc disorder w radiculopathy, unsp cervical region Beth Stevens. [address] [place] [address], [place], [place], [id number], [place]. tel:[phone] [facility], [address] [place] [address], [place], [place], [id number], [place] tel:[phone] [facility] No Information [facility]. [address] [place] [address], [id number], [place]. tel:[phone] MD_Follow Up Level 4 [facility], [address] [place] [address], [place], [place], [id number], [place] tel:[phone] [facility] No Information Yoli Justice. [address] [place] [address], [id number], [place]. tel:[phone] [facility], [address] [place] [address], [place], [place], [id number], [place] tel:[phone] [facility] No Information Beth Stevens. [address] [place] [address], [place], [place], [id number], [place]. tel:[phone] [facility], [address] [place] [address], [place], [place], [id number], [place] tel:[phone] [facility] No Information [facility]. [address] [place] [address], [id number], [place]. tel:[phone] MD_Follow Up Level 4 [facility], [address] [place] [address], [place], [place], [id number], [place] tel:[phone] [facility] Spondylosis without myelopathy or radiculopathy, lumbosacral region Beth Stevens. [address] [place] [address], [place], [place], [id number], [place]. tel:[phone] [facility], [address] [place] [address], [place], [place], [id number], [place] tel:[phone] [facility] Postlaminectomy syndrome, not elsewhere classified Blanca Obregon. [address] [place] [address], [place], [place], [id number], [place]. tel:[phone] [facility], [address] [place] [address], [place], [place], [id number], [place] tel:[phone] [facility] No Information [facility]. [address] [place] [address], [id number], [place]. tel:[phone] MD_Follow Up Level 4 [facility], [address] [place] [address], [place], [place], [id number], [place] tel:[phone] [facility] Other spondylosis with radiculopathy, lumbar region Otilia Marin. [address] [place] [address], [id number], [place]. tel:[phone] MD_Follow Up Level 4 [facility], [address] [place] [address], [place], [place], [id number], [place] tel:[phone] [facility] Other spondylosis with radiculopathy, lumbar region Beléna Tania. [address] [place] [address], [id number], [place]. tel:[phone] [facility], [address] [place] [address], [place], [place], [id number], [place] tel:[phone] [facility] No Information [place] LeesVivian. [address] [place] [address], [address], [place]. tel:[phone] [facility], [address] [place] [address], [place], [place], [id number], [place] tel:[phone] [facility] No Information [facility]. [address] [place] [address], [id number], [place]. tel:[phone] [facility], [address] [place] [address], [place], [place], [id number], [place] tel:[phone] [facility] No Information Beth Stevens. [address] [place] [address], [place], [place], [id number], [place]. tel:[phone] [facility], [address] [place] [address], [place], [place], [id number], [place] tel:[phone] [facility] No Information Otilia Marin. [address] [place] [address], [id number], [place]. tel:[phone] [facility], [address] [place] [address], [place], [place], [id number], tel:[phone] [facility] No Information Arsalanrichardtammy Praveen. [address] [place] [address], [address] [place] [address], [place], [place], [id number], [place]. tel:[phone] MD_Follow Up Level 5 [facility], [address] [place] [address], [place], [place], [id number], [place] tel:[phone] [facility] No Information Otilia Marin. [address] [place] [address], [id number], . tel:[phone] Behavioral (Psych) 60 mins [facility], [address] [place] [address], [place], [place], [id number], [place] tel:[phone] [facility] Spondylosis without myelopathy or radiculopathy, lumbosacral region Hermelinda Peña. [address] [place] [address], [id number], [place]. tel:[phone] [facility], [address] [place] [address], [place], [place], [id number], [place] tel:[phone] [facility] No Information [facility]. [address] [place] [address], [id number], [place]. tel:[phone] [facility], [address] [place] [address], [place], [place], [id number], [place] tel:[phone] [facility] No Information Beth Stevens. [address] [place] [address], [address] [place] [address], [place], [place], [id number], [place]. tel:[phone] [facility], [address] [place] [address], [place], [place], [id number], [place] tel:[phone] [facility] No Information [place] Rodney. [address] [place] [address], [place], [place], [id number], [place]. tel:[phone] [facility], [address] [place] [address], [place], [place], [id number], [place] tel:[phone] [facility] No Information [facility]. [address] [place] [address], [id number], [place]. tel:[phone] [facility], [address] [place] [address], [place], [place], [id number], [place] tel:[phone] [facility] No Information [place] Rodney. [address] [place] [address], [place], [place], [id number], [place]. tel:[phone] MD_Follow Up Level 4 [facility], [address] [place] [address], [place], [place], [id number], [place] tel:[phone] [facility] Spondylosis without myelopathy or radiculopathy, lumbosacral region [place] Rodney. [address] [place] [address], [place], [place], [id number], [place]. tel:[phone] [facility], [address] [place] [address], [place], [place], [id number], [place] tel:[phone] [facility] No Information [place] Rodney. [address] [place] [address], [place], [place], [id number], [place]. tel:[phone] [facility], [address] [place] [address], [place], [place], [id number], [place] tel:[phone] [facility] No Information [facility]. [address] [place] [address], [id number], [place]. tel:[phone] [facility], [address] [place] [address], [place], [place], [id number], [place] tel:[phone] [facility] No Information [place] Rodney. [address] [place] [address], [id number], [place]. tel:[phone] [facility], [address] [place], [place] [address], [place], [place], [id number], [place] tel:[phone] [facility] No Information [facility]. [address] [place] [address], [id number], [place]. tel:[phone] [facility], [address] [place] [address], [place], [place], [id number], [place] tel:[phone] [facility] No Information Beth Stevens. [address] [place] [address], [address] [place] [address], [place], [place], [id number], [place]. tel:[phone] [facility], [address] [place] [address], [place], [place], [id number], [place] tel:[phone] [facility] No Information [facility]. [address] [place] [address], [id number], [place]. tel:[phone] MD_Follow Up Level 3 [facility], [address] [place] [address], [place], [place], [id number], [place] tel:[phone] [facility] Lumbosacral spondylosis without myelopathy Beth Stevens. [address] [place] [address], [place], [place], [id number], [place]. tel:[phone] MD_Follow Up Level 3 [facility], [address] [place] [address], [place], [place], [id number], [place] tel:[phone] [facility] Knee Pain (chief complaint) Enthesopathy of knee, unspecified Roque Garcia. [address] [place] [address], [address], [place]. tel:[phone] [facility], [address] [place] [address], [place], [place], [id number], [place] tel:[phone] [facility] No Information Otoniel Wang. [address] [place] [address], [address] [place] [address], [place], [place], [id number], [place]. tel:[phone] [facility], [address] [place] [address], [place], [place], [id number], [place] tel:[phone] [facility] No Information [facility] [facility]. [address] [place] [address], [id number], [place]. tel:[phone] MD_Follow Up Level 3 [facility], [address] [place] [address], [place], [place], [id number], [place] tel:[phone] [facility] Opioid type dependence, continuous useLumbosacral spondylosis without myelopathyComplete rupture of rotator cuff [place] Stevens. [address] [place] [address], [place], [place], [id number], [place]. tel:[phone] [facility], [address] [place] [address], [place], [place], [id number], [place] tel:[phone] [facility] No Information Beth Stevens. [address] [place] [address], [place], [place], [id number], [place]. tel:[phone] [facility], [address] [place] [address], [place], [place], [id number], [place] tel:[phone] [facility] No Information [facility]. [address] [place] [address], [id number], [place]. tel:[phone] MD_Follow Up Level 4 [facility], [address] [place] [address], [place], [place], [id number], [place] tel:[phone] [facility] back pain (chief complaint)s houlder pain (chief complaint) No Information Del Avalos. [address] [place] [address], [id number], [place]. tel:[phone] MD_Follow Up Level 4 [facility], [address] [place] [address], [place], [place], [id number], [place] tel:[phone] [facility] shoulder pain (chief complaint) Osteoarthrosis, localized, primary, involving shoulder regionOther specified disorders of bursae and tendons in shoulder regionMyalgia and myositis, unspecifiedComplete rupture of rotator cuff Babatunde Jauregui. [address] [place] [address], [id number], [place]. tel:[phone] NP_Office Visit Level 4 [facility], [address] [place] [address], [place], [place], [id number], [place] tel:[phone] [facility] shoulder pain (chief complaint) Lumbosacral spondylosis without myelopathyOther specified disorders of bursae and tendons in shoulder regionBicipital tenosynovitisMyalgia and myositis, unspecified Babatunde Jauregui. [address] [place], [address], . tel:[phone] MD_Follow Up Level 4 [facility], [address] [place] [address], [place], [place], [id number], [place] tel:[phone] [facility] back pain (chief complaint)s houlder pain (chief complaint) No Information Mathis Angélica Sheri Avalos. [address] [place], [place], [id number], [place]. tel:[phone] [facility], [address] [place] [address], [place], [place], [id number], [place] tel:[phone] [facility] No Information Beth Stevens. [address] [place] [address], [place], [place], [id number], [place]. tel:[phone] [facility], [address] [place] [address], [place], [place], [id number], [place] tel:[phone] [facility] No Information [facility]. [address] [place] [address], [id number], [place]. tel:[phone] [facility], [address] [place] [address], [place], [place], [id number], [place] tel:[phone] [facility] No Information Christianne Grimes. [address] [facility], [address], [place], [place], [id number], [place]. tel:[phone] [facility], [address] [place] [address], [place], [place], [id number], [place] tel:[phone] [facility] No Information Beth Stevens. [address] [place] [address], [address] [place] [address], [place], [place], [id number], [place]. tel:[phone] [facility], [address] [place], [place] [address], [place], [place], [id number], [place] tel:[phone] [facility] No Information [facility]. [address] [place] [address], [id number], . tel:[phone] MD_Follow Up Level 5 [facility], [address] [place], [place] [address], [place], [place], [id number], [place] tel:[phone] [facility] back pain (chief complaint) No Information Yoli Reshma. [address] [place] [address], [address], . tel:[phone] [facility], [address] [place] [address], [place], [place], [id number], tel:[phone] [facility] back pain (chief complaint) Adjustment disorder with mixed anxiety and depressed mood Shiva Samano. [address] [place] [address], [id number], [place]. tel:[phone] [facility], [address] [place], [place] [address], [place], [place], [id number], [place] tel:[phone] [facility] No Information Beth Stevens. [address] [place] [address], [facility], [place], [place], [id number], [place]. tel:[phone] [facility], [address] [place], [place] [address], [place], [place], [id number], [place] tel:[phone] [facility] No Information [facility]. [address] [place] [address], [id number], [place]. tel:[phone] NP_Office Visit Level 5 [facility], [address] [place], [place] [address], [place], [place], [id number], [place] tel:[phone] [facility] arm pain (chief complaint) Hypertension, UnspecifiedOpioid type dependence, continuous useTherapeutic Drug MonitoringSciatica Due To Displacement Of Lumbar DiscPostlaminectomy syndrome of thoracic regionLumbosacral spondylosis without myelopathySpinal Stenosis, Lumbar Region, With Neurogenic Claudication Robert Rodríguez. [address] [place] [address], [address], [place], [place], [id number], [place]. tel:[phone] Family History Family Member Type Diagnosis Age At Onset Problem (finding) Family history of Subst ance Abuse Problem (finding) Family history of Heart Disease Problem (finding) Family history of High Blood Pressure Problem (finding) Family history of depre ssion Problem (finding) Family history of alcoh olism Problem (finding) Family history of Diabe sofia mellitus Payers Payer name Insurance type Covered constitution party ID Authoriza tion(s) Medicare [id number] [place] MCR Supplement Plan [id number] Social History Type Description Quantity Date Captured Comments Alcohol Use Details Unknown Caffeine Use Details Unknown Tobacco Use Status No Information Smoking Status No Information Sex Female Chief Complaint And Reason For Visit No Information History Of Present Illness Encounter Date Complaint History Of Prese nt Illness Knee Pain Instructions Date Instruction Additional Infor chris Ms. Wolf presents in followup. She continues to experience significant left paraspinal lumbar pain. The severity has been up to 9/10 on the VAS and has even prompted a visit to the emergency room, where she has undergone radiographic studies of her hip, which she reports showed relatively stable degenerative changes. Most recently, she underwent a left transforaminal epidural steroid injection procedure at S1-2, after which she reports no significant improvement.Additionally, after her emergency room visitation, her dose of transdermal fentanyl was increased from 12.5-25 mcg/h. She reports that the fentanyl was not helping reduce the severity of her pain. On physical examination, there is significant tenderness to palpation over the left paraspinal lumbar musculature and facet joints and over the left greater trochanter. Lumbar flexion and extension elicits left paraspinal lumbar pain.The degree to which the lumbar facet joints play a role in the generation of her left paraspinal lumbar pain is unclear. There is extensive degeneration and information in the lumbar region, however lumbar facet injections and lumbar radiofrequency neural ablation on the left specifically have been extremely helpful in the past. Additionally, right sided lumbar facet injection and medial branch neural ablation has been extremely helpful recently.At this point, I recommend a left lumbar facet joint injection procedure at her earliest convenience with intravenous sedation. Related to Spondylosis without myelopathy or radiculopathy, lumbosacral region Assessments Type Assessment Date No Information
--- OUTSIDE RECORDS SUMMARY | 2025-06-18 08:30 | XMS_ITS ---
Author Organization [facility] Address [address] [facility] [place] [address] Care Team Providers Care Web Press Operator Helper Offset Name Role Phone Allison Ham Primary Care Provider Nyla Sharma Unavailable [phone] Allergies Allergen (clinical drug ingredient) Drug/Non Drug Allergy documented on EMR Reaction Allergy Type Onset Date Status Adhesive - Paper Tap e (uncoded) Unknown Allergy Active Grass Mix Pollens Allergen Ext Unknown Drug Allergy Active Cats Unknown Allergy Active Dust Mites Unknown Allergy Active REASON FOR VISIT Painful nail(s) aggravated by shoes causing difficulty standing/walking Medications Medication SIG (Take, Route, Frequency, Duration) Notes Start Date End Date Status Atorvastatin Calcium 40 MG 1 tablet Oral ly Once a day Active Gabapentin Active oxyCODONE HCl as needed Not-Ta mehdi Nasal [place] Not-Taki ng Vitamin D 400 UNIT 1 capsule Orally Onc e a day; Duration: 30 day(s) Not-Taking amLODIPine Besylate 5 MG 1 tablet Orally Once a day Active traZODone HCl 50 MG 1 tablet at bedtime Orally Once a day; Duration: 30 day(s) Active Pantoprazole Sodium 40 MG 1 tablet Orall y Once a day Active Losartan Potassium 10 MG/ML as directed Orally Active Zoloft Active Ativan 0.5 MG 1 tablet at bedtime as needed Orally Once a day Active HYDROmorphone HCl 2 MG 1 tablet as neede d Orally every 6 hrs Active Colchicine 0.6 MG 1 tablet Orally Active Piroxicam 20 MG 1 capsule with food Orally Once a day Active VESIcare 5 MG 1 tablet Orally Once a day Active Amparo-Colace Active Meloxicam Not-Taking Cephalexin 500 MG TAKE ONE CAPSULE BY MOUTH 3 TIMES A DAY Oral; Duration: 10 Not-Taking traMADol HCl Not-Serge ing fentaNYL Not-Taking fentaNYL Not-Taking Vitamin B12 100 MCG 1 tablet Orally Once a day; Duration: 30 day(s) Not-Taking Metoprolol & Diet Manage Prod Not-Taking Nightsplint . . . AFO - L1930; Duration: . Not-Taking Exforge Not-Taking Physical Therapy . . . 2-3x/week; Duration: 3-4 weeks 01/06/2020 Not-Taking Ipratropium Page 0.06 % USE 1 SPRAY I N EACH NOSTRIL TWICE A DAY Nasal; Duration: 41 Not-Taking Medrol 4 MG as directed Orally 06/28/2020 Not-Taking Feldene 20 MG 1 capsule with food Orally Once a day; Duration: 30 day(s) 07/05/2020 Not-Taking Social History Tobacco Use: Social History [...] Never (0 point) Points 2 Interpretation Negative Vital Signs Height 4 ft 11 in in 06/18/2025 Weight 173 lbs 06/18/2025 BMI 34.94 kg/m2 06/18/2025 Blood pressure systolic 132 mm Hg 06/18/20 25 Blood pressure diastolic 80 mm Hg 025 Encounters Encounter Location Date Provider Diagnosis [facility] [address] [place] [address] 06/18/2025 Nyla Perica Pain in right toe(s) M79.674 ; Onychomycosis B35.1 and Pain in left toe(s) M79.675 Assessments Encounter Date Diagnosis (ICD Code) Assessment Notes Treatment Notes Treatment Clinical Notes Section Notes 06/18/2025 Pain in right toe(s) (ICD-10 - M79.674) 06/18/2025 Onychomycosis (ICD-10 - B35.1) 06/18/2025 Pain in left toe(s) (ICD-10 - M79.675) Plan Of Treatment Next Appt Details Follow Up: 2 Months, Reason: Provider Name:Nyla wang, 09/03/2025 01:00:00 PM, [address] [place] [address], [phone], Procedure Notes * Category Sub-Category Detail Notes Debride Nail 6-10 Nail debridement Due to the cl inical pathology outlined in the exam findings, performance of this nail treatment is medically necessary as its management by an unskilled/untrained nonprofessional would put this patients foot and overall health at risk. Therefore, debridement to affected nail(s), as described in exam ( TA, T1, T2, T3, T4, T5, T6, T7, T8, T9, ), was performed exclusively by the physician of record to reduce/remove overall nail length, girth, thickness, subungual debris, and necrotic tissue, by manual and/or electrical means through the use of a nail nipper and/or dremel-type platen grinder, to a more viable healthy nail plate or bed tissue 6-10 nails in total. Silver nitrate was used for any petechial bleeding as necessary. Definitive antifungal treatment options, both pharmaceutical and surgical, have been reviewed and discussed with the patient. The patient solely prefers the use of intermittent/as needed professional debridement services for their nail condition and understands the need for additional periodic treatments to maintain effectiveness in symptomatic relief - 95594 Progress Notes * Natan WOLFOB:[birth year] (89 yo F)Acc No.[id number]:06/18/2025 Progress Note Patient: Cory WILLIAMBrenda GUZMAN Provider: Chika Ambrocio DPM :1935 A ge:89 Y S ex:Female Date:06/18/2025 Address:[address] [place], [place] [address] Pcp:Allison Ham Subjective: * Chief Complaints: * P ainful nail(s) aggravated by shoes causing difficulty standing/walking * HPI: P ainful Nails: Pt States Last PCP Visit: D ate: 1 * ROS: G eneral/Constitutional: Nausea d enies. V omiting d enies. H liz Thirst d enies. L oss appetite d enies. C hills d enies. F atigue d enies.?Fever d enies. N ight Sweats d enies. U nexplained weight loss d enies. U nexplained weight gain d enies. H EENTM: Dentures d enies. D izziness d enies. G lasses/contacts d enies. R etinopathy d enies. B lurred/double vision d enies. T MJ?denies. D ischarge/drainage d enies. I mplants d enies. S ore throat d enies. D ental implants d enies. H juana of hearing d enies. D ifficulty chewing/swallowing/speaking d enies. N ose bleeds d enies. S ore mouth d enies. ? R espiratory: On Oxygen d enies. P neumonia/pleurisy d enies.?Bronchitis d enies. E mphysema d enies. C oughing d enies. C ough blood?denies. S hortness of breath a dmits. W heezing d enies. C ardiovascular: Pacemaker d enies. M FINANCIAL CONTROLLER d enies. W PW d enies. C HF d enies. H eart attack d enies. S eptal defect d enies. R apid beat a dmits. C hest pain d enies. A trial Fib. a dmits. M urmur/Palpitations d enies. G astrointestinal: Hemorrhoids d enies. S tomach/Abdominal pain d enies. D ark blood stool d enies. I rritable bowel d enies. C onstipation d enies. D iarrhea d enies. H ematology: Swelling d enies. C lots d enies. V aricose Veins d enies. B ruising d enies. B leeding problem d enies. G enitourinary: Blood urine d enies. F requent/Painfu/urination/bladder control d enies. K idney stones d enies. I nfection (UTI) d enies. N ephropathy d enies. s ex trans dis (STD) d enies. P rostate d enies. M usculoskeletal: Hammertoes d enies. B unions d enies. B ack Pain d enies. M uscle Cramps/ Resting d enies. M uscle cramps / walking d enies.?Generalized aches and pains a dmits. W eakness d enies. I nteg.: Lopez d enies. S cars d enies. C orns/calluses?denies. I ngrown nails a dmits. P ainful nails d enies. O pen Sores d enies. R ashes d enies. N eurologic: Difficulty sleeping a dmits. B rain disorder d enies. N umbness d enies. B alance trouble d enies. C onfusion d enies. F ainting/blackouts d enies. T ingling d enies. T remors d enies. * Medical History: * Surgical History: n luke surgery 1990back surgery 1993knee replacement 2007carpal tunnel surgery 05/2017spinal stenosis surgery 11/26/2017 * Hospitalization/Major Diagno stic Procedure: r ight foot hurting diagnosed plantar 07/17/2017[facility]- Spinal stenosis Sx 11/26/2017[facility]- fell,CAT scan, stiches, 06/15/19- 06/19/19 * Family History: M other: , diagnosed with Diabetic - NIDDM, Unspecified essential hypertension, Family history of arthritis. F ather: , diagnosed with Unspecified heart disease. * Social History: T obacco Use: T obacco use other than smoking A re you an other tobacco user? N o Tobacco Control (Standard) T obacco use: N onsmoker A dditional Findings: Tobacco non-user C urrent nonsmoker M iscellaneous: C affeine: yes, frequency:, 1-2 cups per day. Children: yes, 1. Exercise: yes, PT. Marital status: . 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 D rug/Alcohol: A FRANDY-C (Standard) D id you have a drink containing alcohol in the past year? Y es H ow often did you have a drink containing alcohol in the past year? 2 to 4 times a month (2 points) H ow many drinks did you have on a typical day when you were drinking in the past year? 1 or 2 drinks (0 point) H ow often did you have six or more drinks on one occasion in the past year? N ever (0 point) P oints 2 I nterpretation N egative * Medications: T akingPeri-Colace Ativan 0.5 MG Tablet 1 tablet at bedtime as needed Orally Once a day Piroxicam 20 MG Capsule 1 capsule with food Orally Once a day VESIcare 5 MG Tablet 1 tablet Orally Once a day HYDROmorphone HCl 2 MG Tablet 1 tablet as needed Orally every 6 hrs Colchicine 0.6 MG Tablet 1 tablet Orally Losartan Potassium 10 MG/ML Suspension as directed Orally Zoloft traZODone HCl 50 MG Tablet 1 tablet at bedtime Orally Once a day Pantoprazole Sodium 40 MG Tablet Delayed Release 1 tablet Orally Once a day amLODIPine Besylate 5 MG Tablet 1 tablet Orally Once a day Atorvastatin Calcium 40 MG Tablet 1 tablet Orally Once a day Gabapentin Taking Amparo-Colace Taking Ativan 0.5 MG Tablet 1 tablet at bedtime as needed Orally Once a day Taking Piroxicam 20 MG Capsule 1 capsule with food Orally Once a day Taking VESIcare 5 MG Tablet 1 tablet Orally Once a day Taking HYDROmorphone HCl 2 MG Tablet 1 tablet as needed Orally every 6 hrs Taking Colchicine 0.6 MG Tablet 1 tablet Orally Taking Losartan Potassium 10 MG/ML Suspension as directed Orally Taking Zoloft Taking traZODone HCl 50 MG Tablet 1 tablet at bedtime Orally Once a day Taking Pantoprazole Sodium 40 MG Tablet Delayed Release 1 tablet Orally Once a day Taking amLODIPine Besylate 5 MG Tablet 1 tablet Orally Once a day Taking Atorvastatin Calcium 40 MG Tablet 1 tablet Orally Once a day Taking Gabapentin Not-Taking/PRNNasal [place] Vitamin D 400 UNIT Capsule 1 capsule Orally Once a day oxyCODONE HCl as needed Physical Therapy . . . . 2-3x/week Medrol 4 MG Tablet Therapy Pack as directed Orally Feldene 20 MG Capsule 1 capsule with food Orally Once a day Ipratropium Page 0.06 % Solution USE 1 SPRAY IN EACH NOSTRIL TWICE A DAY Nasal Metoprolol & Diet Manage Prod Nightsplint . . . . AFO - L1930 fentaNYL Patch Vitamin B12 100 MCG Tablet 1 tablet Orally Once a day Exforge traMADol HCl Meloxicam Cephalexin 500 MG Capsule TAKE ONE CAPSULE BY MOUTH 3 TIMES A DAY Oral fentaNYL Medication List reviewed and reconciled with the patientNot-Taking/PRN Nasal [place] Not-Taking/PRN Vitamin D 400 UNIT Capsule 1 capsule Orally Once a day Not-Taking/PRN oxyCODONE HCl as needed Not-Taking/PRN Physical Therapy . . . . 2-3x/week Not-Taking/PRN Medrol 4 MG Tablet Therapy Pack as directed Orally Not-Taking/PRN Feldene 20 MG Capsule 1 capsule with food Orally Once a day Not-Taking/PRN Ipratropium Page 0.06 % Solution USE 1 SPRAY IN EACH NOSTRIL TWICE A DAY Nasal Not-Taking/PRN Metoprolol & Diet Manage Prod Not-Taking/PRN Nightsplint . . . . AFO - L1930 Not-Taking/PRN fentaNYL Patch Not-Taking/PRN Vitamin B12 100 MCG Tablet 1 tablet Orally Once a day Not-Taking/PRN Exforge Not-Taking/PRN traMADol HCl Not-Taking/PRN Meloxicam Not-Taking/PRN Cephalexin 500 MG Capsule TAKE ONE CAPSULE BY MOUTH 3 TIMES A DAY Oral Not-Taking/PRN fentaNYL Medication List reviewed and reconciled with the patient * Allergies: A dhesive - Paper TapeDust MitesGrass Mix Pollens Allergen ExtCatsyes[Allergies Verified] Objective: * Vitals: H t: 4 ft 11 in, Wt: 173, BMI: 34.94, Shoe size: 8, BP: 132/80 mm Hg, Ht-cm: 149.86 cm, Wt-k.47 kg. * Examination: N ails: NAILS are: E longated, overgrown, dystrophic, lytic, greater than 3mm thick, discolored and friable with crumbly malodorous subungual debris, with pain on palpation , TA, T1, T2, T3, T4, T5, T6, T7, T8, T9. Assessment: * Assessment: 1. P ain in right toe(s) - M79.674 2 . O nychomycosis - B35.1 (Primary)? 3. P ain in left toe(s) - M79.675 Plan: * Treatment: * Procedures: D ebride Nail 6-10: Nail debridement D ue to the clinical pathology outlined in the exam findings, performance of this nail treatment is medically necessary as its management by an unskilled/untrained nonprofessional would put this patients foot and overall health at risk. Therefore, debridement to affected nail(s), as described in exam ( TA, T1, T2, T3, T4, T5, T6, T7, T8, T9, ), was performed exclusively by the physician of record to reduce/remove overall nail length, girth, thickness, subungual debris, and necrotic tissue, by manual and/or electrical means through the use of a nail nipper and/or dremel- type platen grinder, to a more viable healthy nail plate or bed tissue 6-10 nails in total. Silver nitrate was used for any petechial bleeding as necessary. Definitive antifungal treatment options, both pharmaceutical and surgical, have been reviewed and discussed with the patient. The patient solely prefers the use of intermittent/as needed professional debridement services for their nail condition and understands the need for additional periodic treatments to maintain effectiveness in symptomatic relief - 55025. * Procedure Codes: 1 1721 DEBRIDE NAIL, 6 OR MORE * Preventive Medicine: Screening/Special Tests: F all Risk Screening: N o falls in the past year F ALLS: Screening for Future Fall Risk Have you had two or more falls in the past year? N o Have you had any falls with injury in the past year? N o * Follow Up: 2 Months * Images: * Sign off status: Completed true * Provider: Chika Ambrocio DPM Date: 08/18/2024 Generated for Sherin díaz/Darrin/Sumeet on: 08/22/2024 06:39 PM EST History and Physical Notes * HPI (History of Present Illness) Category Sub-Category Detail Notes Category Not es Painful Nails Pt States Last PCP Visit: Date:: 05/22/2025 Examination Category Sub-Category Detail Notes Category Not es Nails NAILS are: Elongated, overg rown, dystrophic, lytic, greater than 3mm thick, discolored and friable with crumbly malodorous subungual debris, with pain on palpation , TA, T1, T2, T3, T4, T5, T6, T7, T8, T9
--- NOTE | 2025-06-22 15:17 | AM.OFFVISNUR ---
Intake Visit Reasons: Evenity #12 Allergies bee pollen Allergy (Unknown, Verified 06/16/25 10:30) Unknown house dust mite Allergy (Unknown, Verified 06/16/25 10:30) Unknown adhesive tape Adverse Reaction (Intermediate, Verified 06/16/25 10:30) Rash Office Meds romosozumab-aqqg 210 mg/2.34 mL(105 mg/1.17 mL x2)subcutaneous syringe Performing Provider: Rommel Lopez MD [place] [facility] Administered by: Aydee White RN on 06/22/25 15:10 Dose Route Admin Location Dispensed Lot Number Expiration Date [employer]st 210 mg subcut bilateral upper arms 2.34 mL [id number] 06/27/27 37906-128-85 [employer] Total Dispensed Waste 2.34 mL 0 % Comments: No adverse reactions reported from previous injection. Pt tolerated injection well. No further questions at this time. Assessment & Plan Assessment & Plan Orders: Orders AMB Romosozumab Injection Patient Supplied Today M81.0 - Age-related osteoporosis without current pathological fracture Coding
--- OUTSIDE RECORDS SUMMARY | 2025-06-22 18:39 | XMS_ITS | Patient Health Record ---
Author Organization [facility] Address [address] [facility] [place] [address] Care Team Providers Care Training Intern Name Role Phone Allison Ham Primary Care Provider Nyla Sharma Unavailable [phone] Allergies Allergen (clinical drug ingredient) Drug/Non Drug [...] ly Once a day Active Gabapentin Active amLODIPine Besylate 5 MG 1 tablet Orally Once a day Active oxyCODONE HCl as needed Not-Harsh harding Physical Therapy . . . 2-3x/week; Duration: 3-4 weeks 01/06/2020 Not-Taking Nasal [place] Not-Taki ng Vitamin D 400 UNIT 1 capsule Orally Onc e a day; Duration: 30 day(s) Not-Taking Ipratropium [place] 0.06 % USE 1 SPRAY I N EACH NOSTRIL TWICE A DAY Nasal; Duration: 41 Not-Taking Medrol 4 MG as directed Orally 06/28/2020 Not-Taking Feldene 20 MG 1 capsule with food Orally Once a day; Duration: 30 day(s) 07/05/2020 Not-Taking Amparo-Colace Active fentaNYL Not-Taking Ativan 0.5 MG 1 tablet at bedtime as needed Orally Once a day Active Vitamin B12 100 MCG 1 tablet Orally Once a day; Duration: 30 day(s) Not-Taking Metoprolol & Diet Manage Prod Not-Taking Nightsplint . . . AFO - L1930; Duration: . Not-Taking HYDROmorphone HCl 2 MG 1 tablet as neede d Orally every 6 hrs Active Meloxicam Not-Taking Colchicine 0.6 MG 1 tablet Orally Active Cephalexin 500 MG TAKE ONE CAPSULE BY MOUTH 3 TIMES A DAY Oral; Duration: 10 Not-Taking Piroxicam 20 MG 1 capsule with food Orally Once a day Active Exforge Not-Taking VESIcare 5 MG 1 tablet Orally Once a day Active traMADol HCl Not-Serge ing traZODone HCl 50 MG 1 tablet at bedtime Orally Once a day; Duration: 30 day(s) Active Pantoprazole Sodium 40 MG 1 tablet Orall y Once a day Active Losartan Potassium 10 MG/ML as directed Orally Active fentaNYL Not-Taking Zoloft Active Immunizations Vaccine Route Administration Date Status Comme nts Influenza Unknown 03/29/2025 Administered Social History Tobacco Use: Social History Observation [...] primary osteoarthritis of the ankle and/or foot ([id number]) 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 Vital Signs Blood pressure diastolic 80 mm Hg 06/18/2025 Height 4 ft 11 in in 06/18/2025 Blood pressure systolic 132 mm Hg 06/18/2025 Weight 173 lbs 06/18/2025 BMI 34.94 kg/m2 06/18/2025 Encounters Encounter Location Date Provider Diagnosis [facility] [address] [place] [address] 04/09/2025 Nyla Perica Pain in right toe(s) M79.674 ; Onychomycosis B35.1 and Pain in left toe(s) M79.675 [facility] [address] [place] [address] 06/18/2025 Nyla Ambrocio Pain in right toe(s) M79.674 ; Onychomycosis B35.1 and Pain in left toe(s) M79.675 Assessments Encounter Date Diagnosis (ICD Code) Assessment Notes Treatment Notes Treatment Clinical Notes Section Notes 04/09/2025 Pain in right toe(s) (ICD-10 - M79.674) 04/09/2025 Onychomycosis (ICD-10 - B35.1) 06/18/2025 Pain in right toe(s) (ICD-10 - M79.674) 06/18/2025 Onychomycosis (ICD-10 - B35.1) 04/09/2025 Pain in left toe(s) (ICD-10 - M79.675) 06/18/2025 Pain in left toe(s) (ICD-10 - M79.675) Plan Of Treatment Pending Test Test Name Order Date MRI : Foot, left 06/28/2020 X ray : Foot, left 3V 05/25/2020 X ray : Foot, right 3V 07/19/2017 X ray : Foot, right 3V 06/19/2019 [id number] NAIL, 6 OR MORE 03/07/2018 [id number]-Nuaxlkup Plate 06/25/2011 59978- Debride <25 sq cm 07/11/201148156,[id number] TENDON SHEATH/LIGAMENT 1 08/19/2018 [id number] TENDON SHEATH/LIGAMENT 0 03/07/2018 80529,[id number] TENDON SHEATH/LIGAMENT 1 [id number] TENDON SHEATH/LIGAMENT 0 01/06/2020 [id number] TENDON SHEATH/LIGAMENT 0 04/12/2020 92979- Unna Boot 06/19/2019 X ray : Ankle, right 3V 06/19/2019 Next Appt Details Provider Name:Nyla Wang Garrett wang, 09/03/2025 01:00:00 PM, [address] [place], [address], Insurance Providers Payer Name Payer Address Payer Phone Subscriber Number Group Number Insured Name Patient Relationship to Insured Coverage Start Date Coverage End Date Medicare National Govt tritrue [facility] [address] [place] [address] [id number] Brenda Wolf Self - patient is the insured [address] [place] [address] [id number] Brenda Wolf Self - patient is the insured Medical (General) History Medical History History ICD Code anxiety Arthritis back, hip, knee pain hypertension osteoporosis measles joint implants/screws asthma CAD (Cholesterol) Depression A fib Surgical History Surgery Date(Month/Year) neck surgery 1989 back surgery 1992 knee replacement 2007 carpal tunnel surgery 05/2017 spinal stenosis surgery 11/26/2017 Hospitalization History Reason Date(Month/Year) [facility] [place], [place], [place] S[place] 11/26/2017 right foot hurting diagnosed plantar 07/17/2017
--- OUTSIDE RECORDS SUMMARY | 2025-06-22 18:39 | XMS_ITS | Encounter Summary ---
Author Organization [facility] Address [address] [facility] [address] [place] [address] Phone Care Team Providers Care Rn Progressive Care Unit Name Role Phone Ne Cho MD Unavailable [phone] Unknown, Unknown Primary Care Provider Ling Blanc NP Primary Care Provider + Reason for Referral * Consultation (Elective) - Closed Specialty Diagnoses / Procedures Referred By Contac t Referred To Contact Pulmonary Disease Diagnoses Wheezing Ling Middleton NP Phone: tel: fax: [address] [address] Phone: tel: Referral ID Status Reason Start Date Expiration Date Visits Re quested Visits Authorized [id number] Closed 06/26/2021 06/26/2022 1 1 Encounter Details Date Type Department Care Team (Late st Contact Info) Description 06/26/2021 Transcribe Orders [facility] Pulmonary, Allergy and Critical Care Medicine [address] [place], [place] [phone] Ling Middleton NP [address] [place] [address] [phone] Wheezing (Primary Dx) Social History Tobacco Use Types Packs/Day Years Used Date Smoking Tobacco: Former Cigarettes 1 8 1966 Smokeless Tobacco: Never Education Answer Date Recorded Are you interested in help w ith more adult education (for example, completing high school, GED, job training, learning the [place] language, technical skills, or developing parenting skills)? [...] Associated Diagnoses Order Schedule Ambulatory referral to [facility] Pulmonology Outpatient Referral Routine Wheezing Ordered: 06/26/2021 [...] 1. Pt will explore exercise classes at [facility] once cleared by spinal surgeon. 2. Pt will engage in Weight Watchers classes. documented as of this encounter Visit Diagnoses Diagnosis Wheezing- Primary documented in this encounter Additional Health Concerns Assessment Noted Time PHQ-2 Depression Total Score: 0 03/12/20 18 1:28 PM EDT documented as of this encounter Care Teams Rn Progressive Care Unit Relationship Specialty Start Date End Date Unknown, Unknown, MD PCP - General 06/28/21 07/04/21 Ling Middleton NP [address] [place] [address] PCP - General Family Medicine 07/05/21 Ne Cho MD [address] [place] [address], [address] [place] [address] [email or web address] Insurance Assigned Provider 11/04/19 08/04/22 documented as of this encounter Additional Source Comments The information contained in this document represents components of the legal health record. It is not the complete legal health record.[facility]
--- OUTSIDE RECORDS SUMMARY | 2025-06-22 18:39 | XMS_ITS | Encounter Summary ---
Author Organization [facility] Address [address] [place] [address] Phone Care Team Providers Care Log Yard Derrick Operator Name Role Phone Ne Cho MD Unavailable [phone] Ling Middleton NP Primary Care Provider + Encounter Details Date Type Department Care Team (Late st Contact Info) Description 12/05/2021 Transcribe Orders [facility] [address] [place] [address] Darrin Gómez MD, [place] [address] [id number] Social History Tobacco Use Types Packs/Day Years Used Date Smoking Tobacco: Former Cigarettes 0.8 10 1 958 - 9766 Smokeless Tobacco: Never Alcohol Use Standard Drinks/Week [...] 1. Pt will explore exercise classes at [facility] once cleared by spinal surgeon. 2. Pt will engage in Weight [employer] classes. documented as of this encounter Visit Diagnoses Not on filedocumented in this encounter Additional Health Concerns Assessment Noted Time PHQ-2 Depression Total Score: 0 03/12/20 18 1:28 PM EDT documented as of this encounter Care Teams Log Yard Derrick Operator Relationship Specialty Start Date End Date Ling Middleton NP [address] [place] [address] PCP - General Family Medicine 07/05/21 Ne Cho MD [address] [place] [address], [address] BRINDA Izquierdo [address] [email or web address] Insurance Assigned Provider 11/04/19 08/04/22 documented as of this encounter Additional Source Comments The information contained in this document represents components of the legal health record. It is not the complete legal health record.[facility]
--- OUTSIDE RECORDS SUMMARY | 2025-06-22 18:39 | XMS_ITS | Clinical Summary ---
Author Organization [facility] Address [address] [facility] [address] [place] [address] Phone Care Team Providers Care Padder Name Role Phone Ling Middleton NP Primary [...] spur. I referred her to a new automation lead today and she will call for an appointment. She will call if things get worse or if they change. She understands and agrees. Lumbar post-laminectomy syndrome 05/26/2020 Enthesopathy of hip region 05/26/2020 Disorder of bursae of shoulder region 05/26/2020 Chronic pain of right ankle 12/03/2019 Assessment & Plan (01/05/2020 1:01 PM EDT): I recommend she call [facility] and request a second opinion from [...] surgery w Dr Kc 11/26/17 Dr. Kc, Clifford Assessment & Plan (05/06/2018 8:32 PM EDT): Patient with complex chronic pain status post multiple spinal surgeries. She has been using fentanyl patch 25 mcg, this is been tapered down from 37 mcg. This last month she excessively used oxycodone due to pain flare. I think she would be better served in a comprehensive pain management clinic. She was referred to [place] pain [facility]. For the meantime we will [...] from physical therapy. She is following with income tax preparer Assessment & Plan (12/01/2018 2:52 PM EDT): [...] Former Cigarettes 0.8 10 1 958 - 9223 Smokeless Tobacco: Never Alcohol Use Standard Drinks/Week [...] 1. Pt will explore exercise classes at [facility] once cleared by spinal surgeon. 2. [...] EDT) SODIUM 140 133 - 146 mmol/L [facility] POTASSIUM 4.2 3.3 - 5.1 mmol/L [facility] CHLORIDE 105 96 - 108 mmol/L [facility] CO2 23 21 - 35 mmol/L [facility] BUN 27(H) 6 - 19 mg/dL [facility] CREATININE 0.80 0.5 - 1.5 mg/dL [facility] GLUCOSE 86 70 - 99 mg/dL [facility] ALBUMIN 4.2 3.9 - 4.8 g/dL [facility] TOTAL PROTEIN 7.2 6.5 - 8.0 g/dL [facility] CALCIUM 9.6 8.4 - 10.3 mg/dL [facility] ALKALINE PHOSPHATASE 102 39 - 117 U/L [facility] TOTAL BILIRUBIN 0.3 0.0 - 1.2 mg/dL [facility] AST 24 0 - 37 U/L [facility] ALT 21 0 - 40 U/L [facility] GLOBULIN 3.0 1 - 4.8 g/dL [facility] EGFR 68 >59 mL/min/1.7 3m2 [facility] Comment:Estimated glomerular filtration rate calculated using the CKD-EPI equation. ANION GAP 16 10 - 20 mmol/L [facility] Blood 12/05/2020 2:15 PM EDT 12/05/2020 2:16 PM EDT us Chely Samara Zurba RESEARCH AND DEVELOPMENT TESTER LAB BLOOD BKR ORDERABLES Mame l Result [facility] [address] [place] [address] * OUTSIDE BONE DENSITY SCREENING (11/19/2013) BONE DENSITY SCREENING - EXTERNAL osteopenia us Historical Provider MD HEALTH MAINTENANCE Final Result from Last 3 Months or Most Recently Relevant to Health Maintenance Insurance [address] [place] [address] MEDICARE PART A & B [facility] MEDICARE ENHANCE SUPPLEMENT MEDICARE PART A & B MEDICARE ENHANCE SUPPLEMENT MEDICARE PART A & [place] [address] [place] [address] MEDICARE ENHANCE SUPPLEMENT MEDICARE PART A & [place] [address] [place] [address] MEDICARE ENHANCE SUPPLEMENT MEDICARE PART A & B [facility] MEDICARE ENHANCE SUPPLEMENT [facility] MEDICARE ENHANCE SUPPLEMENT MEDICARE PART A & B [facility] MEDICARE ENHANCE SUPPLEMENT MEDICARE PART A & B [facility] MEDICARE ENHANCE SUPPLEMENT MEDICARE PART A & B [facility] MEDICARE ENHANCE SUPPLEMENT Advance Directives For more information, please contact: [phone] (9AM - 5PM [facility], Saturday-Saturday) Documents on File Type Date Recorded Patient Pin Sticker Expl anation Healthcare Proxy 03/28/2018 1:38 PM Care Teams Padder Relationship Specialty Start Date End Date Ling Middleton NP [address] [place] [address] PCP - General Family Medicine 07/05/21 Additional Source Comments The information contained in this document represents components of the legal health record. It is not the complete legal health record.[facility]
--- OUTSIDE RECORDS SUMMARY | 2025-06-22 18:39 | XMS_ITS | Data Portability ---
Author Organization ID - [facility] Address [address] [place] [phone] Assessment Encounter Date Assessment Date Assessment LastModified [...] Recorded Body temperature Heart rate Oxygen saturation Systolic And Diastolic Provider Name and Address Organization Details Last Updated DateTime 12/01/2017 97 [degF] 65 /min 96 % 143/79 mm[Hg] Yun Harrell MD [address] [place], [phone] [place] [address] [facility] 8 16:35:36 Date Recorded Body temperature Heart rate Respiratory rate Systolic And Diastolic Provider Name and Address Organization Details Last Updated DateTime 12/02/2017 98.5 [degF] 80 /min 18 /min 125/59 mm[Hg] GUILHERME Cazares NP [address] [place], [address] [place] [address] [facility] 8 10:16:59 Date Recorded Body temperature Heart rate Respiratory rate Systolic And Diastolic Provider Name and Address Organization Details Last Updated DateTime 12/04/2017 99.7 [degF] 68 /min 18 /min 103/57 mm[Hg] GUILHERME Cazares NP [address] [place], [address] [place] [address] [facility] 8 09:45:06 Date Recorded Body temperature Heart rate Systolic And Diastolic Provider Name and Address Organization Details Last Updated DateTime 12/05/2017 97.8 [degF] 80 /min 147/78 mm[Hg] GUILHERME HALL NP [address] [place] [address], [phone] 12/05/2017 10:18:56 Date Recorded Body weight Body temperature Heart rate Oxygen saturation Systolic And Diastolic Provider Name and Address Organization Details Last Updated DateTime 8 [address].5 2 g 97.8 [degF] 72 /min 96 % 99/41 mm[Hg] GUILHERME Cazares NP [address] [place] [address], [address] [place] [address] [facility] 8 09:38:58 Social History Question Answer Notes LastModified by Organizat ion Details LastModified Time Tobacco Smoking Status Former Smoker Yun Harrell MD [address] [place] [address], [phone], [facility] 12/01/2017 16:36:41 Live [...] ICD10 Code Diagnosis IMO Codes Diagnosis Note [id number] Yun Harrell MD [facility] [address] [place] [address] 12/01/2017 16:22:36 12/06/2017 14:56:06 Spinal stenosis of lumbar region 81865700 M48.061 s/p decompress ion, pain is controlled on tylenol, dilaudid, fentanyl patch, PT, OT, wound care Essential hypertension 21050789 I10 cont amlodipin, losartan Hyperlipidemia 64551701 E78.5 cont lipitor Gastroesop hageal reflux disease without esophagitis 039067856 K21.9 cont PPI Constipation 05797017 K5 9.00 colace, senna, miralax ,enema if needed Depressive disorder 3548 9007 F32.9 cont zoloft, trazodone [id number] GUILHERME HALL NP [address] [address] 12/02/2017 10:05:52 12/04/2017 11:11:45 Spinal stenosis of lumbar region 78638921 M48.061 s/p decompress ion, pain is controlled on tylenol, dilaudid, fentanyl patch, cont with PT and OT here; incision is covered with steri stips and DPD Essential hypertension 62184897 I10 cont amlodipin, losartango od BP control Hyperlipidemia 74530599 E78.5 cont lipitor Gastroesop hageal reflux disease without esophagitis 594361660 K21.9 cont PPI Constipation 61244522 K5 9.00 good BM; cont current med regiment Depressive disorder 3548 9007 F32.9 cont zoloft, trazodone [id number] GUILHERME HALL NP [address] [address] 12/04/2017 09:44:05 12/06/2017 14:28:20 Spinal stenosis of lumbar region 37737261 M48.061 s/p decompress ion, pain is controlled on tylenol, dilaudid, fentanyl patch, cont with PT and OT here; incision is covered with steri stips. Essential hypertension 16936771 I10 cont amlodipin, losartango od BP control Hyperlipidemia 00410479 E78.5 cont lipitor Gastroesop hageal reflux disease without esophagitis 293226147 K21.9 cont PPI Constipation 53630470 K5 9.00 good BM; cont current med regiment Depressive disorder 3542 9007 F32.9 cont zoloft, trazodone Leukocytosis 711846499 D 72.829 wbc 12; pt has a fever; will get UA [id number] GUILHERME HALL NP [facility] ill House [address] [place] [address] 12/05/2017 10:17:51 12/10/2017 16:37:53 Spinal stenosis of lumbar region 84110519 M48.061 s/p decompress ion, pain is controlled on tylenol, dilaudid, fentanyl patch, cont with PT and OT here; incision is covered with steri stips.pt jose be d/c home in a few days Leukocytosis 785054438 D 72.829 UA neg, afebrile; cbc pending from today Essential hypertension 35820514 I10 cont amlodipine , losartango od BP control Constipation 58512791 K5 9.00 good BM; cont current med regiment [id number] GUILHERME HALL NP [facility] ill [place] [address] [place] [address] 12/06/2017 09:34:53 12/13/2017 12:45:01 Spinal stenosis of lumbar region 21055100 M48.061 s/p decompress ion, pain is controlled on tylenol, dilaudid, fentanyl patch,will give rx for fentalyn pathc #4 to go home withMass pat checkedf/u wit [place] in 8 weeks Essential hypertension 70474106 I10 cont amlodipin, losartan Hyperlipidemia 67584306 E78.5 cont lipitor Gastroesop hageal reflux disease without esophagitis 901106939 K21.9 cont PPI Constipation 04293696 K5 9.00 colace, senna, miralax ,enema if needed Depressive disorder 3544 9007 F32.9 cont zoloft, trazodone Health Concerns Section Related Observation LastModified by Organization Huseyin tiwari LastModified Time None Recorded Concern Status LastModified by Organization Details LastModified Time None Recorded Advance Directives Directive None Recorded Payers Insurance Date Sequence Insurance Name Policy Number Policy Blanco Covered Member ID Blanco Member ID Guarantor Name 12/04/2017 1 MEDICARE [place]: [employer] Brenda Wolf [id number] Brenda Andras 12/04/2017 2 [facility] - MEDICARE ENHANCE (INDEMNITY PLAN) Brenda Andyani [id number] Brenda Andras Notes Date Note Type Note Provider Name and Address Organization Details Recorded Time 12/01/2017 text/html ROS as noted in the HPI seen for admission- came from [facility] where pt had L3-S1 decompression.Pt tolerated procedure well, pain is controlled on current fentanyl patch and dilaudidPt came to for further care Yun Harrell MD [address] [place] [address], [phone], [facility] 12/01/2017 16:43:01 12/02/2017 text/html ROS as noted in the HPI seeing pt today for f/u; continues to work with therapy here, making progress. Pt came from [facility] where pt had L3-S1 decompression.Pt tolerated procedure well, pain is controlled on current fentanyl patch and dilaudid. GUILHERME HALL NP [address] [place] [address], [phone], [facility] 12/02/2017 10:21:10 12/04/2017 text/html ROS as noted in the HPI seeing pt today for f/u; continues to work with therapy here, making progress. Pt came from [facility] where pt had L3-S1 decompression.Pt tolerated procedure well, pain is controlled on current fentanyl patch and dilaudid. GUILHERME HALL NP [address] [place] [address], [phone], [facility] 12/04/2017 12:59:51 12/05/2017 text/html ROS as noted in the HPI seeing pt today for f/u; continues to work with therapy here, making progress.Ua was obtained yesterday; pt had elevated wbc Pt came from [facility] where pt had L3-S1 decompression.Pt tolerated procedure well, pain is controlled on current fentanyl patch and dilaudid. GUILHERME HALL NP [address] [place] [address], [phone], [facility] 12/07/2017 15:19:06 12/06/2017 text/html seeing pt today for d/c; pt has done well with therapy here, made progress, will be d/c home tomorrow. GUILHERME HALL NP [address] [place] [address], [phone], [facility] 12/08/2017 11:15:02 OBGyn Episode No OBEpisode recorded.
--- OUTSIDE RECORDS SUMMARY | 2025-06-22 18:39 | XMS_ITS | Data Portability ---
Author Organization [facility] Pain Managem ent, PAIN OFFICE Address [address] [facility] [address] [place] [address] Care Team Providers Care Immunopathologist Name Role Phone DANNY SHALA Referring Provider [...] booked for the same. She needs a charter driver on the day of the procedure. [...] pain back to baseline.[facility], L5 and [...] patch 2015 016 miguel [id number], [address] [facility] [place], [address], 6 11:36:11 Celebrex 200 mg capsule 2015 016 [id number], [address] [place], [address], 6 08:56:14 Patient TargetsNo targets recorded. Patient Instructions Encounter Date Encounter Id Patient Instructions Last Modified By Organization Details Last Modified Time 08/16/2015 [id number] She was advised against bed rest lasting longer than four days and to continue activities as tolerated. [email or web address] Not available 08/16/2015 13:04:51 09/01/2015 [id number] She was advised against bed rest lasting longer than four days and to continue activities as tolerated. [email or web address] Not available 09/01/2015 15:28:37 09/07/2015 [id number] She was advised against bed rest lasting longer than four days and to continue activities as tolerated. [email or web address] Not available 09/08/2015 14:18:24 09/13/2015 [id number] She was advised against bed rest lasting longer than four days and to continue activities as tolerated. [email or web address] Not available 09/13/2015 14:59:45 09/23/2015 [id number] She was advised against bed rest lasting longer than four days and to continue activities as tolerated. [email or web address] Not available 09/27/2015 10:03:45 Reason for Referral None Reported. Results Created Date Observation Date Name Description Value Unit Range Abnormal Flag Note LastModifiedBy Organization Detail LastModifiedTime 08/22/19 16 08/22/2015 x-ray , tony lissette, 2 views No observ ation record ed. [facility] [address] [place] [address], [address], 09/01/2015 15:28:37 Result Notes None recorded. Problems Name Problem SNOMED Code Status Onset Date Resolution Date Notes Provider Name and Address Organization Details Recorded Time Enthesopathy of hip region 57858529 Active Johnny henning MD [address] , [address], [facility] [place], [address], [place] [facility] 6 11:36:10 Lumbosacral spondylosis without myelopathy 12794657 Active Johnny henning MD [address] , [address], [facility] [place], [address], [place] [facility] 6 11:36:10 Lumbar post-laminecto my syndrome [id number] Jillian henning MD [address] , [address], [place] [place], [address], [place] [facility] 6 11:36:10 Lumbosacral radiculitis 94098468 Jillian henning MD [address] , [address], [place] [place], [address], [place] [facility] 6 11:36:10 Disorder of bursa of shoulder region 16580580 Jillian henning MD [address] , [address], [facility] [place], [address], [place] [facility] 6 11:36:11 Muscle pain 22902311 Jillian henning MD [address] , [address], [facility] [place], [address], [place] [facility] 6 11:36:10 Problem Notes None recorded. Procedures Surgical History Date Name Laterality Status Provider Name and Address Organization Details Recorded Time 09/13/19 16 Radiofrequency of Lumbar/Sacral medial branches supplying the facets under fluoroscopic guidance completed Johnny Montanez MD [address] , [address], [place], [address], [place] [facility] 09/14/2015 14:17:33 09/07/19 16 Lumbar median branch block under fluroscopic guidance completed Johnny Montanez MD [address] , [address], [place], [address], [place] [facility] 09/08/2015 14:23:25 08/16/19 16 Fluoroscopic Guided Lumbar Facet Steroid Injections of levels completed Johnny Montanez MD [address] , [address], [place], [address], [place] [facility] 08/16/2015 13:09:50 03/08/20 15 Fluoroscopic Guided Lumbar Facet Steroid Injections of levels completed Johnny Montanez MD [address] , [address], [place], [address], [place] [facility] 03/09/2015 09:22:44 [...] Vitals Date Recorded Heart rate Oxygen saturation Systolic And Diastolic Provider Name and Address Organization Details Last Updated DateTime 08/16/2015 68 /min 97 % 182/72 mm[Hg] Anisha Mendieat [place] - [facility] 08/16/2015 10:23:34 Date Recorded Oxygen saturation Heart rate Systolic And Diastolic Provider Name and Address Organization Details Last Updated DateTime 09/01/2015 97 % 76 /min 118/58 mm[Hg] Anisha Mendieta [place] [facility] 09/01/2015 15:00:38 Date Recorded Oxygen saturation Heart rate Systolic And Diastolic Provider Name and Address Organization Details Last Updated DateTime 09/07/2015 99 % 65 /min 140/88 mm[Hg] Anisha Mendieta [facility] - [facility] 09/07/2015 09:43:17 Date Recorded Oxygen saturation Heart rate Systolic And Diastolic Provider Name and Address Organization Details Last Updated DateTime 09/13/2015 98 % 67 /min 157/45 mm[Hg] Anisha Mendieta [place] [facility] 09/13/2015 10:18:19 Date Recorded Oxygen saturation Heart rate Systolic And Diastolic Provider Name and Address Organization Details Last Updated DateTime 09/23/2015 97 % 69 /min 143/76 mm[Hg] Anisha Mendieta [facility] - [facility] 09/23/2015 08:56:14 Social History Question Answer Notes LastModified by Organizat ion Details LastModified Time Tobacco Smoking Status Former Smoker Quit x 40 years Not Available [employer] 05/13/2020 03:16:11 Which Illicit Or Recreational Drugs Have You Used? No [id number] Information not available 05/13/2020 Education 12 [email or web address] Information no t available 03/01/2015 Live Alone Or With Others? Alone Information not available 03/01/2015 Marital Status Informatio n not available 03/01/2015 How Many Years Have You Smoked Tobacco? 20 [id number] Information not available 05/13/2020 Sex: Unknown Functional Status Question Answer Note LastModified by Organization D etails LastModified Time What is your level of alcohol consumption? Moderate Wine [id number] Information not available 05/13/2020 Are you currently employed? No [id number] Information not available 05/13/2020 Mental Status None [...] ICD10 Code Diagnosis IMO Codes Diagnosis Note [id number] Johnny Montanez MD PAIN OFFICE [address] [place] [address] 03/01/2015 10:09:29 03/02/2015 11:29:26 Lumbar post-laminectomy syndrome 895098924 Lumbosacra l radiculitis 76544173 Lumbosacra l spondylosis without myelopathy 67600514 Enthesopat hy of hip region 44649916 65614 Johnny Montanez MD PAIN OFFICE [address] [place] [address] 03/08/2015 14:21:23 03/09/2015 09:25:14 Lumbosacral spondylosis without myelopathy 13139388 Enthesopat hy of hip region 44756769 Lumbosacra l radiculitis 62587283 Lumbar post-laminectomy syndrome 534430742 10175 Johnny Montanez MD [facility] PAIN OFFICE [address] [facility] [place] [address] 04/11/2015 14:50:34 04/12/2015 09:13:56 Lumbosacral spondylosis without myelopathy 03528155 Enthesopat hy of hip region 67733871 Lumbosacra l radiculitis 47554504 Lumbar post-laminectomy syndrome 503335708 19890 Johnny Montanez MD [facility] PAIN OFFICE [address] [facility] [place] [address] 08/16/2015 10:11:47 08/16/2015 14:46:00 Lumbosacral spondylosis without myelopathy 88548399 M47.817 Enthesopat hy of hip region 18053621 M76.9 Lumbosacra l radiculitis 61630913 M54.17 Lumbar post-laminectomy syndrome 790112717 M96.1 Disorder o f bursa of shoulder region 77290145 M25.812 24927 Johnny Montanez MD [facility] PAIN OFFICE [address] [facility] [place] [address] 09/01/2015 14:03:53 09/01/2015 15:37:11 Lumbosacral spondylosis without myelopathy 64329924 M47.817 Enthesopat hy of hip region 42614563 M76.9 Disorder o f bursa of shoulder region 02777251 M25.812 Lumbosacra l radiculitis 72692323 M54.17 Lumbar post-laminectomy syndrome 722064748 M96.1 57181 Johnny Montanez MD [facility] PAIN OFFICE [address] [facility] [place] [address] 09/07/2015 09:36:32 09/08/2015 14:24:03 Lumbosacral spondylosis without myelopathy 00747216 M47.817 Enthesopat hy of hip region 29087107 M70.61 Disorder o f bursa of shoulder region 66523972 M25.812 Lumbosacra l radiculitis 82009913 M54.17 Lumbar post-laminectomy syndrome 790331329 M96.1 27131 Johnny Montanez MD [facility] PAIN OFFICE [address] [facility] [place] [address] 09/13/2015 10:08:37 09/13/2015 15:13:45 Lumbosacral spondylosis without myelopathy 08788018 M47.817 Lumbar post-laminectomy syndrome 000427189 M96.1 Enthesopat hy of hip region 84725411 M70.61 Disorder o f bursa of shoulder region 80278987 M25.812 Lumbosacra l radiculitis 74269593 M54.17 20894 Johnny Montanez MD [facility] PAIN OFFICE [address] [facility] [place] [address] 09/23/2015 08:47:47 09/27/2015 11:36:33 Lumbosacral spondylosis without myelopathy 14361421 M47.817 Lumbar post-laminectomy syndrome 581924184 M96.1 Lumbosacra l radiculitis 01206606 M54.17 Muscle pain 33883931 M79 .1 Enthesopat hy of hip region 96911289 M70.61 Disorder o f bursa of shoulder region 18594811 M25.812 Health Concerns Section Related Observation LastModified by Organization Detai ls LastModified Time None Recorded Concern Status LastModified by Organization Details LastModified Time None Recorded Advance Directives Directive None Recorded Payers Insurance Date Sequence Insurance Name Policy Number Policy Blanco Covered Member ID Blanco Member ID Guarantor Name 04/11/2015 1 [facility] [facility] (MEDICARE) Brenda Wolf [id number] Brenda Andras 09/01/2015 1 [place]: [employer] Brenda Wolf [id number] Brenda Andras 09/27/2015 2 [facility] (MEDICARE SUPPLEMENT) Brenda Andras [id number] Brenda Andras Notes Date Note Type [...] her left shoulder. Johnny Montanez MD [address] [facility] [address], [place], [address], [place] - [facility] 08/18/2015 09:24:14 09/01/2015 text/html She is here for a follow up after a left shoulder X-ray. 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 She states she has seen a PA at [facility] and she recommended a total knee replacement. [...] an issue presently. Johnny Montanez MD [address] [facility] , [address], [place], [address], [facility] - Pain Management 09/02/2015 11:09:45 09/07/2015 text/html She is here for a trial of right median branch block under fluoroscopic guidance at L4, L5and S1 medial branches. Johnny Montanez MD [address] [facility] , [address], [place], [address], [place] - [facility] 09/08/2015 15:45:44 09/13/2015 [...] with the RF. Johnny Montanez MD [address] [facility] [facility] , [address], [place], [address], [place] - Pain Management 09/14/2015 14:17:41 09/23/2015 text/html She is here for a follow up. She states she is noticing pain in her muscles in the low back and she had difficulty sleeping due to pain and muscle spasms since the radiofrequency ablation. She has been applying ice. She has seen Tamika at [facility] and has started synvisc injections for her [...] or bowel incontinence. Johnny Montanez MD [address] [facility] , [address], [place], [address], [facility] 10/03/2015 08:52:43 OBGyn Episode No OBEpisode recorded.
--- OUTSIDE RECORDS SUMMARY | 2025-06-22 18:39 | XMS_ITS | Patient Health Record ---
Author Organization [facility] Address [address] [place] [address] Care Team Providers Care Television Production Clerk Name Role Phone Ling Middleton DNP Primary [...] a day; Duration: 30 day(s) Active Ipratropium Ewing 0.06 % Solution 2 sprays in each nostril Nasally Three times a day; Duration: 4 day(s) Active Amoxicillin 500 MG Capsule 1 capsule Ora lly NEEDED FOR DENTIST Active Calcium 500 MG Tablet Chewable 1 tablet Orally Once a day Active Tramadol & Dietary Manage Prod Active Vitamin D3 Ultra Potency 83083 UNIT Tablet 1 tablet Orally as directed [...] W/U Status Risk Notes Problem Rectal bleeding (32988791) Rectal bleeding (K62.5) Active confirmed Problem Gastro-esophagea l reflux disease without esophagitis (276836427) Gastro-esophage al reflux disease without esophagitis (K21.9) Active confirmed Problem Cough (23474428) Cough (R05) Active confirmed Problem Urinary incontinence (792640975) Urinary incontinence, unspecified type (R32) Active confirmed Plan Of Treatment Pending Test Test Name Order Date XR GI SERIES 07/14/2015 Insurance Providers Payer Name Payer Address Payer Phone Subscriber Number Group Number Insured Name Patient Relationship to Insured Coverage Start Date Coverage End Date MEDICARE OF [place] [address] [place] [address] [id number] KAY COLLINS Self - patient is the insured [employer] [employer] [address] [place]AKKAR [phone] [id number] KAY COLLINS Self - patient is the insured Medical (General) History Medical History History ICD Code EGD/colonoscopy 01/03/2006. No evidence of Morse's esophagus. Hyperplastic colon polyp. Seasonal allergic rhinitis hypertension hypercholesterolemia scoliosis arthritis depression Surgical History Surgery Date(Month/Year) Vocal cord polyp 2006 Multiple back and neck surgeries rotator cuff surgery both knee replacement left
== END 2025-06-22 15:10 | disposition home or self-care (01) ==
LOC: HO.ENCR 14:52
PROVIDERS: PCP Physician Assistant; Visit Provider Internal Medicine Endocrinology, Diabetes & Metabolism
DX: M81.0 Age-related osteoporosis without current pathological fracture (principal)

== ENCOUNTER → 2025-06-22 14:51 | Outpatient (BNVA) | payer MEDICARE, OTHER, SELFPAY | PROVIDERS: PCP Physician Assistant; Visit Provider Internal Medicine Endocrinology, Diabetes & Metabolism | DX: M81.0 Age-related osteoporosis without current pathological fracture (principal) | CPT/HCPCS: 96372; J3111 ==